=== PATIENT | male | born 1965 | race Caucasian/White ===

== ENCOUNTER 2024-07-19 17:35 | Inpatient (IN) | payer MEDICARE, OTHER ==
[2024-07-19] MEDS: SODIUM CHLORIDE 0.9% 1,000 ML IV ONE ×2 (18:40→23:05)
[2024-07-19 19:04] LABS: Basophils % (A) 0 %; Eosinophils % (A) 1 %; HCT 36.7 % (39.0-53.0); HGB 11.9 gm/dL (13.0-17.5); Hypochromasia Slight; Lymphocytes # (A) 0.4 k/uL (1.0-4.8); Lymphocytes % (A) 15 %; MCH 31.4 pg (25.0-35.0); MCHC 32.5 g/dL (31.0-37.0); MCV 96.8 fL (80.0-100.0); Mean Platelet Volume 8.1; Monocytes # (A) 0.2 k/uL (0-1.0); Monocytes % (A) 8 %; Neutrophils # (A) 2.2 k/uL (1.3-7.7); Neutrophils % (A) 74 %; Platelet Count 122 k/uL (150-450); RBC 3.79 m/uL (4.30-5.90); RDW 14.9 % (11.5-15.5)
[2024-07-19 19:08] LABS: INR 1.4 (<1.2); Partial Thromboplastin Time 28.5 sec (22.0-30.0); Prothrombin Time 14.7 sec (10.0-12.5)
[2024-07-19 19:19] LABS: Lactic Acid, Venous 2.5 mmol/L (0.7-2.0)
[2024-07-19 19:22] LABS: ALT 11 U/L (4-49); AST 35 U/L (17-59); African American GFR (CKD) >90 (>60 ml/min/1.73 sqM); Albumin 3.5 g/dL (3.5-5.0); Alcohol <10 mg/dL; Alkaline Phosphatase 120 U/L (38-126); Anion Gap 4 mmol/L; Blood Urea Nitrogen 8 mg/dL (9-20); Calcium 8.8 mg/dL (8.4-10.2); Carbon Dioxide 30 mmol/L (22-30); Chloride 99 mmol/L (98-107); Glucose 109 mg/dL (74-99); Non-African American GFR(CKD) >90 (>60 ml/min/1.73 sqM); Potassium 2.8 mmol/L (3.5-5.1); Sodium 133 mmol/L (137-145); Total Bilirubin 2.5 mg/dL (0.2-1.3)
--- NOTE | 2024-07-19 19:25 | XR ---
EXAMINATION TYPE: XR pelvis AP view DATE OF EXAM: 07/19/2024 7:08 PM CLINICAL INDICATION: Male, 59 years old with history of fall; [facility] COMPARISON: None TECHNIQUE: XR pelvis AP view, examined in a single projection. FINDINGS: There is no evidence of fracture or dislocation. There is no soft tissue abnormality. No a bnormal calcifications are present. The spine appears intact. The hips appear intact. No significant degeneration. Atherosclerosis of the arterial vasculature. Surgical changes with clips in the right i nguinal region. IMPRESSION: No acute osseous pathology. [facility], , 07/19/2024 7:23 PM
[2024-07-19] MEDS: LORazepam 2 MG/ML INJ IV STA ×3 (19:26→20:50)
--- NOTE | 2024-07-19 19:33 | CT ---
EXAMINATION TYPE: CT brain cspine wo con CT DLP: 1263.7 mGycm, Automated exposure control for dose reduction was used. DATE OF EXAM: 07/19/2024 7:13 PM COMPARISON: None. CLINICAL INDICATION: Male, 59 years old with history of Altered mental status; fall, ams TECHNIQUE: Brain: Multiple axial CT images of the brain were obtained without IV contrast. Cspine: Axial CT images from the skull base to the inferior aspect of T2 we obtained without intraven ous contrast. Coronal and sagittal reformatted images were also reviewed. . FINDINGS: Brain: Extra-axial spaces: No abnormal extra-axial fluid collections. Ventricular system: Dilatation in proportion to cerebral atrophy. Cerebral parenchyma: Cerebral atrophy. No acute intraparenchymal hemorrhage or mass effect. The salazar -white junction is well differentiated. Scattered hypoattenuating areas are seen within the white mat ter. Cerebellum: Unremarkable. Mass effect: No evidence of midline shift. Intracranial vasculature: Atherosclerotic calcifications of the intracranial vessels. Soft tissues: Normal. Calvarium/osseous structures: No depressed skull fracture. Paranasal sinuses and mastoid air cells: Clear. Visualized orbits: Orbital contents are intact. Cervical spine: Fracture: None. Osseous structures: Multilevel degenerative disc disease changes with endplate spurring and disc oste ophyte complex's. Vertebral alignment: Within normal limits. Spinal canal/Neural Foramina: No evidence of significant spinal canal narrowing. No evidence for sign ificant neural foraminal stenosis. Neck soft tissues: Prevertebral soft tissues are within normal limits. Other: The airway is patent. Paraseptal and centrilobular emphysema changes. Pulmonary vascular conge stion. Atherosclerosis of the carotid bifurcations. Cardiac conduction leads partially visualized. IMPRESSION: 1. No acute intracranial process. 2. Nonspecific white matter changes, likely secondary to chronic small vessel ischemic disease. 3. No evidence of cervical spine fracture. 4. Mild multilevel degenerative disc disease. 5. Moderate emphysema. 6. Pulmonary vascular congestion correlate with serum BNP. [facility], Workstation: [id number], 07/19/2024 7:31 PM
[2024-07-19] MEDS ORDERED: LORazepam 2 MG/ML INJ IV PRN ×2 (19:34)
--- NOTE | 2024-07-19 19:35 | XR ---
EXAMINATION TYPE: XR chest 1V portable DATE OF EXAM: 07/19/2024 7:08 PM CLINICAL INDICATION: Male, 59 years old with history of fall; [facility] COMPARISON: None TECHNIQUE: XR chest 1V portable Frontal view of the chest. FINDINGS: Lungs/Pleura: There is no evidence of pleural effusion, focal consolidation, or pneumothorax. Pulmonary vascularity: Pulmonary vascular congestion. Heart/mediastinum: Cardiomediastinal silhouette is enlarged. Atherosclerotic calcifications are seen in the aorta. Two lead cardiac conduction device overlying the left hemithorax with lead tips projec ting over the right ventricle and right atrium. Musculoskeletal: No acute osseous pathology. Midline sternotomy wires are noted. Other findings: Right shoulder posttraumatic changes with radiopaque foreign bodies. IMPRESSION: Cardiomegaly with mild pulmonary vascular congestion. [facility], Workstation: [employer][id number], 07/19/2024 7:32 PM
[2024-07-19] MEDS ORDERED: Potassium Replacement Protocol 1 EACH MISC MISCELLANE PRN (19:36)
[2024-07-19] MEDS: levETIRAcetam IV 500 MG/5 ML VIAL IVP STA (20:05)
[2024-07-19] MEDS: HALOPERIDOL LACTATE 5 MG/ML 1 ML VIAL IVP STA (20:05)
[2024-07-19] MEDS: THIAMINE 100 MG/ML 2 ML VIAL IM STA (20:12)
[2024-07-19] MEDS: SODIUM CHLORIDE 0.9% 1,000 ML IV STA (20:15)
--- NOTE | 2024-07-19 20:26 | ED ---
General Adult HPI - General Chief complaint: Fall Stated complaint: Fall-AMS Time Seen by Provider: 07/19/24 17:38 Source: patient, EMS, RN notes reviewed, old records reviewed Mode of arrival: EMS Limitations: no limitations - History of Present Illness Initial comments: Patient is a 59-year-old male who presents emergency department complaining of a fall at home. Patient does not remember the fall. He has a history of abuse. Is a daily drinker. Has been attempting to decrease the amount of alcohol he drinks on a daily basis. He does have a history of atrial fibrillation with an AICD. States he has not been taking a blood thinner for multiple months. Cannot recall all of his medications and questionable compliance regarding the se. Denies any headache or pain. Has a chronic abdominal hernia. Denies any shortness of breath. Does endorse some mild tremors. Presents for further evaluation at this time. Patient was a little confused after falling at home apparently as he cannot recall the fall but it does not sound like he was postictal. The fall occurred shortly prior to arrival and by the time he mated to the ER he was coherent, alert and oriented x 4, with no complaints. - Related Data Home Medications Medication Instructions Recorded Confirmed Bumetanide [BUMEX] 2 mg PO DIRECTED 07/19/24 07/19/24 Empagliflozin [Jardiance] 10 mg PO DIRECTED 07/19/24 07/19/24 HYDROcodone/APAP 10-325MG [[place] 1 tab PO Q6H PRN 07/19/24 07/19/24 10-325] LORazepam 2 mg PO TID PRN 07/19/24 07/19/24 Sacubitril/Valsartan [Entresto 24 1 tab PO DIRECTED 07/19/24 07/19/24 mg-26 mg Tablet] Allergies Allergy/AdvReac Type Severity Reaction Status Date / Time No Known Allergies Allergy Verified 07/19/24 20:02 Review of Systems ROS Statement: Those systems with pertinent positive or pertinent negative responses have been documented in the HPI. Review of Systems: CONST: Denies fever EYES: Denies blurry vision ENT: Denies nasal congestion C/V: Denies Chest pain RESP: Denies shortness of breath GI: Denies abdominal pain : Denies dysuria SKIN: Denies rash. MSK: Denies joint pain. NEURO: Denies headache ROS Other: All systems not noted in ROS Statement are negative. Past Medical History Past Medical History: Atrial Fibrillation, Chest Pain / Angina, Heart Failure, COPD, Diabetes Mellitus, Hypertension, Liver Disease, Myocardial Infarction (IL), Respiratory Disorder, Syncope Additional Past Medical History / Comment(s): 07/19/2024- no info in system- all placed in history per patients recollection- Home oxygen use@2-3L PRN COPD, IL- patient reports having 3-4 IL's 07/19/24, + CABG scar, + AICD/PCCM "I have a machine inside that sends all the info to my heart doctor" , Abdominal Hernia surgery x2, paracentesis as needed- last times was at [facility] about 3-4 months ago per patient History of Any Multi-Drug Resistant Organisms: None Reported Past Surgical History: AICD, Cholecystectomy, Coronary Bypass/CABG, Heart Catheterization With Stent, Hernia Repair, Pacemaker Additional Past Surgical History / Comment(s): CABG, AICD/Pacemaker placed about 10 years ago per patient 07/19/24, Hernia repair abdominal x2 Past Psychological History: Anxiety Smoking Status: Current every day smoker Past Alcohol Use History: Abuse, Daily, Heavy Past Drug Use History: Marijuana General Exam - General Exam Comments Initial Comments: General: Appears in no acute distress. Mild alcohol withdrawal symptoms con sidering he is tremulous with mild tongue fasciculations. Last drink was yesterday. HEAD: Normal with no signs of head trauma. Negative Dempsey sign. Negative raccoon eyes. EYES: PERRLA, EOMI, conjunctiva normal, no discharge. Pupils are 3 mm and equal bilaterally. ENT: Hearing grossly intact, normal oropharynx. RESPIRATORY: Clear breath sounds bilaterally. No wheezes, rales, or rhonchi. C/V: Irregular rate and rhythm. S1 and S2 auscultated, no edema, peripheral pulses 2+ and intact throughout ABD: Abd is soft, nontender, nondistended EXT: Normal range of motion, no obvious deformity SKIN: No rashes or lesions observed on exposed skin. NEURO: Alert and oriented x 4. Cranial nerves II-XII intact. No focal sensory or strength deficits. GCS of 15. NIH is 0. Limitations: no limitations Course Vital Signs 07/19/24 17:55 Temperature 99.3 F Pulse Rate 90 Respiratory 20 Rate Blood Pressure 128/65 O2 Sat by Pulse 94 L Oximetry Medical Decision Making - Medical Decision Making Was pt. sent in by a medical professional or institution (AURY Barrera, FILM RECORDIST, urgent care, hospital, or [facility]...) When possible be specific @ -No Did you speak to anyone other than the patient for history (EMS, parent, family, police, friend...)? What history was obtained from this source @ -No Did you review nursing and triage notes (agree or disagree)? Why? @ -I reviewed and agree with nursing and triage notes Were old charts reviewed (outside hosp., previous admission, EMS record, old EKG, old radiological studies, urgent care reports/EKG's, [facility] records)? Report findings @ -No old charts were reviewed Differential Diagnosis (chest pain, altered mental status, abdominal pain women, abdominal pain men, vaginal bleeding, weakness, fever, dyspnea, syncope, headache, dizziness, GI bleed, back pain, seizure, CVA, palpatations, mental health, musculoskeletal)? @ -Differential Altered Mental Status: Hypoglycemia, DKA, hypercapnia, ETOH, overdose, CO poisoning, trauma, myxedema coma, HTN encephalopathy, infection, encephalitis, psychosis, intercranial hemorrhage, hepatic encephalopathy, meningitis, CVA, this is not meant to be an all-inclusive list EKG interpreted by me (3pts min.). @ -As above X-rays interpreted by me (1pt min.). @ -Chest xray Shows cardiomegaly with mild pulmonary vascular congestion. P daniel x-ray shows no obvious acute process or injury. CT interpreted by me (1pt min.). @ -CT brain, C-spine shows no obvious acute intracranial process. U/S interpreted by me (1pt. min.). @ -None done What testing was considered but not performed or refused? (CT, X-rays, U/S, labs)? Why? @ -None What meds were considered but not given or refused? Why? @ -None Did you discuss the management of the patient with other professionals (professionals i.e. AURY Barrera, FILM RECORDIST, lab, RT, psych nurse, child protective services social worker, public relations intern, teacher, driver's license reviewing officer, case management associate)? Give summary @ -Discussed with Dr. Pope who accepted the admission. He spoke with Dr. Kirkpatrick while I admitted the patient to the ICU on presidex drip. Patient accepted to ICU by Dr. Kirkpatrick. Was smoking cessation discussed for >3mins.? @ -No Was critical care preformed (if so, how long)? @ -Yes, 35 minutes. Were there social determinants of health that impacted care today? How? (Homelessness, low income, unemployed, alcoholism, drug addiction, transportation, low edu. Level, literacy, decrease access to med. care, detention, rehab)? @ -No Was there de-escalation of care discussed even if they declined (Discuss DNR or withdrawal of care, Hospice)? DNR status @ -No What co-morbidities impacted this encounter? (DM, HTN, Smoking, COPD, CAD, Cancer, CVA, ARF, Chemo, Hep., AIDS, mental health diagnosis, sleep apnea, morbid obesity)? @ -Alcohol abuse Was patient admitted / discharged? Hospital course, mention meds given and route, prescriptions, significant lab abnormalities, going to OR and other pertinent info. @ -Based on the patient's presentation and physical exam, I am concerned for alcohol withdrawals. Patient also fell at home. Does not appear postictal at this time so low suspicion for seizure at home. However we will obtain altered mental status workup as well as CT abdomen pelvis. Patient was in agreement this plan. Vitals within acceptable limits. EKG shows atrial fibrillation. Laboratory studies remarkable for hypokalemia with potassium of 2.8. Lactic acid is 2.5. Ammonia is elevated at 51. Alcohol level is undetectable. Patient has a leukopenia at 3.0, a mild anemia with hemoglobin 11.9, as well as a mild thrombocytopenia of 122. CT brain C-spine shows no obvious acute intracranial process or injury. Chest and pelvis x-ray showed no obvious injuries. On reevaluation, patient is resting comfortably. He did begin to have a breakthrough seizure. At this time patient was given 2 mg IV Ativan as well as given a dose of Keppra and maintenance fluids will be continued. Patient is postictal and still agitated. Additional Ativan will be administered and we will continue to monitor the situation. I did speak with Dr. Pope the admitting provider who did accept the patient. Decision made at this time to admit the patient to the ICU. Dr. Pope spoke with Dr. Kirkpatrick the head boys tennis coach who accepted the admission. Patient placed on Precedex drip for his agitation and alcohol withdrawals. No additional seizure activity in the emergency department at time of admission. Patient given potassium supplementation. His ammonia is also elevated and was given a dose of rectal lactulose. [facility] Protocol who ordered. Seizure precautions ordered. Undiagnosed new problem with uncertain prognosis? @ -No Drug Therapy requiring intensive monitoring for toxicity (Heparin, Nitro, Insulin, Cardizem)? @ -No Were any procedures done? @ -No Diagnosis/symptom? @ -Fall, alcohol withdrawals, seizure, hypokalemia Acute, or Chronic, or Acute on Chronic? @ -Acute Uncomplicated (without systemic symptoms) or Complicated (systemic symptoms)? @ -Complicated Side effects of treatment? @ -No Exacerbation, Progression, or Severe Exacerbation? @ -No Poses a threat to life or bodily function? How? (Chest pain, USA, IL, pneumonia, PE, COPD, DKA, ARF, appy, cholecystitis, CVA, Diverticulitis, Homicidal, Suicidal, threat to staff... and all critical care pts) @ -Yes - Lab Data Result diagrams: 07/19/24 18:45 07/19/24 18:45 Lab Results 07/19/24 07/19/24 07/19/24 Range/Units 17:38 18:45 18:45 WBC 3.0 L (3.8-10.6) k/uL RBC 3.79 L (4.30-5.90) m/uL Hgb 11.9 L (13.0-17.5) gm/dL Hct 36.7 L (39.0-53.0) % MCV 96.8 (80.0-100.0) fL MCH 31.4 (25.0-35.0) pg MCHC 32.5 (31.0-37.0) g/dL RDW 14.9 (11.5-15.5) % Plt Count 122 L (150-450) k/uL MPV 8.1 Neutrophils % 74 % Lymphocytes % 15 % Monocytes % 8 % Eosinophils % 1 % Basophils % 0 % Neutrophils # 2.2 (1.3-7.7) k/uL Lymphocytes # 0.4 L (1.0-4.8) k/uL Monocytes # 0.2 (0-1.0) k/uL Eosinophils # 0.0 (0-0.7) k/uL Basophils # 0.0 (0-0.2) k/uL Hypochromasia Slight PT 14.7 H (10.0-12.5) sec INR 1.4 H (<1.2) APTT 28.5 (22.0-30.0) sec Sodium (137-145) mmol/L Potassium (3.5-5.1) mmol/L Chloride (98-107) mmol/L Carbon Dioxide (22-30) mmol/L Anion Gap mmol/L BUN (9-20) mg/dL Creatinine (0.66-1.25) mg/dL Est GFR (CKD-EPI)AfAm (>60 ml/min/1.73 sqM) Est GFR (CKD-EPI)NonAf (>60 ml/min/1.73 sqM) Glucose (74-99) mg/dL Plasma Lactic Acid Tay (0.7-2.0) mmol/L Calcium (8.4-10.2) mg/dL Total Bilirubin (0.2-1.3) mg/dL AST (17-59) U/L ALT (4-49) U/L Alkaline Phosphatase (38-126) U/L Ammonia (<30) umol/L Total Protein (6.3-8.2) g/dL Albumin (3.5-5.0) g/dL Serum Alcohol mg/dL Influenza Type A (PCR) Not Detected (Not Detectd) Influenza Type B (PCR) Not Detected (Not Detectd) RSV (PCR) Not Detected (Not Detectd) SARS-CoV-2 (PCR) Not Detected (Not Detectd) 07/19/24 07/19/24 Range/Units 18:45 18:45 WBC (3.8-10.6) k/uL RBC (4.30-5.90) m/uL Hgb (13.0-17.5) gm/dL Hct (39.0-53.0) % MCV (80.0-100.0) fL MCH (25.0-35.0) pg MCHC (31.0-37.0) g/dL RDW (11.5-15.5) % Plt Count (150-450) k/uL MPV Neutrophils % % Lymphocytes % % Monocytes % % Eosinophils % % Basophils % % Neutrophils # (1.3-7.7) k/uL Lymphocytes # (1.0-4.8) k/uL Monocytes # (0-1.0) k/uL Eosinophils # (0-0.7) k/uL Basophils # (0-0.2) k/uL Hypochromasia PT (10.0-12.5) sec INR (<1.2) APTT (22.0-30.0) sec Sodium 133 L (137-145) mmol/L Potassium 2.8 L (3.5-5.1) mmol/L Chloride 99 (98-107) mmol/L Carbon Dioxide 30 (22-30) mmol/L Anion Gap 4 mmol/L BUN 8 L (9-20) mg/dL Creatinine 0.53 L (0.66-1.25) mg/dL Est GFR (CKD-EPI)AfAm >90 (>60 ml/min/1.73 sqM) Est GFR (CKD-EPI)NonAf >90 (>60 ml/min/1.73 sqM) Glucose 109 H (74-99) mg/dL Plasma Lactic Acid Tay 2.5 H* (0.7-2.0) mmol/L Calcium 8.8 (8.4-10.2) mg/dL Total Bilirubin 2.5 H (0.2-1.3) mg/dL AST 35 (17-59) U/L ALT 11 (4-49) U/L Alkaline Phosphatase 120 (38-126) U/L Ammonia 51 H (<30) umol/L Total Protein 7.0 (6.3-8.2) g/dL Albumin 3.5 (3.5-5.0) g/dL Serum Alcohol <10 mg/dL Influenza Type A (PCR) (Not Detectd) Influenza Type B (PCR) (Not Detectd) RSV (PCR) (Not Detectd) SARS-CoV-2 (PCR) (Not Detectd) - EKG Data -: EKG Interpreted by Me EKG Comments: 12-lead Electrocardiogram Interpretation Note EKG was reviewed and interpreted by myself. 12-lead ECG performed at 1755 is interpreted by me as revealing atrial fibrillation at a rate of 95 beats per minute. [place] is normal. QRS duration is 120 ms, QTc is 443 ms. Patient has an isolated segment depression in lead V5.. There were no obvious acute ST or T wave abnormalities to suggest myocardial ischemia or injury. R wave progression across the precordium was delayed. By my interpretation this EKG is non- diagnostic for acute ischemia. Critical Care Time Critical Care Time: Yes Total Critical Care Time: 35 Disposition Clinical Impression: Fall, Alcohol withdrawal, Seizure, Hypokalemia, Hyperammonemia Disposition: ADMITTED IP TO THIS HOSP Condition: Serious Referrals: None,Stated [Primary Care Provider] - 1-2 days Time of Disposition: 20:36
[2024-07-19] MEDS: LORazepam 2 MG/ML INJ IV PRN (20:28)
[2024-07-19] MEDS ORDERED: NALOXONE 0.4 MG/ML 1 ML VIAL IV PRN (20:30)
--- NOTE | 2024-07-19 20:45 | ED ---
Medical Decision Making - Lab Data Result diagrams: 07/19/24 18:45 07/19/24 18:45 Lab Results 07/19/24 07/19/24 07/19/24 Range/Units 17:38 18:45 18:45 WBC 3.0 L (3.8-10.6) k/uL RBC 3.79 L (4.30-5.90) m/uL Hgb 11.9 L (13.0-17.5) gm/dL Hct 36.7 L (39.0-53.0) % MCV 96.8 (80.0-100.0) fL MCH 31.4 (25.0-35.0) pg MCHC 32.5 (31.0-37.0) g/dL RDW 14.9 (11.5-15.5) % Plt Count 122 L (150-450) k/uL MPV 8.1 Neutrophils % 74 % Lymphocytes % 15 % Monocytes % 8 % Eosinophils % 1 % Basophils % 0 % Neutrophils # 2.2 (1.3-7.7) k/uL Lymphocytes # 0.4 L (1.0-4.8) k/uL Monocytes # 0.2 (0-1.0) k/uL Eosinophils # 0.0 (0-0.7) k/uL Basophils # 0.0 (0-0.2) k/uL Hypochromasia Slight PT 14.7 H (10.0-12.5) sec INR 1.4 H (<1.2) APTT 28.5 (22.0-30.0) sec Sodium (137-145) mmol/L Potassium (3.5-5.1) mmol/L Chloride (98-107) mmol/L Carbon Dioxide (22-30) mmol/L Anion Gap mmol/L BUN (9-20) mg/dL Creatinine (0.66-1.25) mg/dL Est GFR (CKD-EPI)AfAm (>60 ml/min/1.73 sqM) Est GFR (CKD-EPI)NonAf (>60 ml/min/1.73 sqM) Glucose (74-99) mg/dL Plasma Lactic Acid Tay (0.7-2.0) mmol/L Calcium (8.4-10.2) mg/dL Total Bilirubin (0.2-1.3) mg/dL AST (17-59) U/L ALT (4-49) U/L Alkaline Phosphatase (38-126) U/L Ammonia (<30) umol/L Total Protein (6.3-8.2) g/dL Albumin (3.5-5.0) g/dL Serum Alcohol mg/dL Influenza Type A (PCR) Not Detected (Not Detectd) Influenza Type B (PCR) Not Detected (Not Detectd) RSV (PCR) Not Detected (Not Detectd) SARS-CoV-2 (PCR) Not Detected (Not Detectd) 07/19/24 07/19/24 Range/Units 18:45 18:45 WBC (3.8-10.6) k/uL RBC (4.30-5.90) m/uL Hgb (13.0-17.5) gm/dL Hct (39.0-53.0) % MCV (80.0-100.0) fL MCH (25.0-35.0) pg MCHC (31.0-37.0) g/dL RDW (11.5-15.5) % Plt Count (150-450) k/uL MPV Neutrophils % % Lymphocytes % % Monocytes % % Eosinophils % % Basophils % % Neutrophils # (1.3-7.7) k/uL Lymphocytes # (1.0-4.8) k/uL Monocytes # (0-1.0) k/uL Eosinophils # (0-0.7) k/uL Basophils # (0-0.2) k/uL Hypochromasia PT (10.0-12.5) sec INR (<1.2) APTT (22.0-30.0) sec Sodium 133 L (137-145) mmol/L Potassium 2.8 L (3.5-5.1) mmol/L Chloride 99 (98-107) mmol/L Carbon Dioxide 30 (22-30) mmol/L Anion Gap 4 mmol/L BUN 8 L (9-20) mg/dL Creatinine 0.53 L (0.66-1.25) mg/dL Est GFR (CKD-EPI)AfAm >90 (>60 ml/min/1.73 sqM) Est GFR (CKD-EPI)NonAf >90 (>60 ml/min/1.73 sqM) Glucose 109 H (74-99) mg/dL Plasma Lactic Acid Tay 2.5 H* (0.7-2.0) mmol/L Calcium 8.8 (8.4-10.2) mg/dL Total Bilirubin 2.5 H (0.2-1.3) mg/dL AST 35 (17-59) U/L ALT 11 (4-49) U/L Alkaline Phosphatase 120 (38-126) U/L Ammonia 51 H (<30) umol/L Total Protein 7.0 (6.3-8.2) g/dL Albumin 3.5 (3.5-5.0) g/dL Serum Alcohol <10 mg/dL Influenza Type A (PCR) (Not Detectd) Influenza Type B (PCR) (Not Detectd) RSV (PCR) (Not Detectd) SARS-CoV-2 (PCR) (Not Detectd) Disposition Clinical Impression: Fall, Alcohol withdrawal, Seizure, Hypokalemia, Hyperammonemia Disposition: ADMITTED IP TO THIS [facility] Condition: Serious Procedures - Restraint - Face to Face Restraint Occurrence 1 Patient's Immediate Situation: Endangers self safety Patient's Reaction to the Intervention: Appropriate, Calm Patient's Medical & Behavioral Condition: Agitated Face to Face Eval of Restraint Date: 07/19/24 Face to Face Eval of Restraint Time: 20:20
[2024-07-19] MEDS: DEXMEDETOMIDINE/0.9% NACL(PMX) 400 MCG in EMPTY BAG 1 BAG IV SCH (21:01)
[2024-07-19] MEDS: POTASSIUM CHLORIDE 10 MEQ in WATER FOR INJECTION 1 100ML.BAG IVPB SCH (21:03)
[2024-07-19] MEDS: MAGNESIUM SULFATE-D5W PMX 1 GM in DEXTROSE/WATER 1 100ML.BAG IVPB ONE (21:45)
[2024-07-19] MEDS ORDERED: DILTIAZEM 125 MG in SODIUM CHLORIDE 0.9% 100 ML IV SCH (22:15)
[2024-07-19 22:50] LABS: ABG Base Excess 1.3 mmol/L; ABG HCO3 27 mmol/L (21-25); ABG Oxygen Saturation 100.5 % (94-97); ABG PCO2 44 mmHg (35-45); ABG PH 7.39 (7.35-7.45); ABG PO2 252 mmHg (83-108); ABG TCO2 28 mmol/L (19-24); Allen Test Performed? Yes
--- NOTE | 2024-07-19 22:56 | P.HPIM ---
History of Present Illness H&P Date: 07/19/24 Chief Complaint: Fall Patient is a 59-year-old male who has atrial fibrillation with an AICD presented to the ED after a fall at home. upon presentation patient was AXO X 4 , however, by the time I evaluated the patient he was already intubated and history obtained by discussing hte case with ED staff and reviewing medical records. The patient did not remember the fall. While in the ED the patient was suspected to have alcohol withdrawal seizures and was admitted in the ICU. In the ICU, due to respiratory instability, the patient is sedated, mechanically intubated and ventilated at a rate of 20, 60% FiO2 and PEEP of 5. ED documentation reviewed. Respiratory panel negative, serum alcohol less than 10. The patient received levetiracetam, lorazepam while in the ED. Review of systems: Pertinent positives and negatives as discussed in HPI, a complete review of systems was performed and all other systems are negative. Physical examination: Vitals: P 108 bpm, RR 20, BP 164/135, O2 saturation 93% on 60% FiO2 General: sedated and intubated, appears at stated age, normal bmi Derm: venous stasis ulcers b/l LE Head: atraumatic, normocephalic, symmetric ENT: Nose and ears atraumatic Cardiovascular: S1S2 reg, no murmur, b/l pitting edema of the legs Lungs: CTA bilateral, no rhonchi, no rales, no accessory muscle use Abdominal: hernia in umbilical region, soft Assessment/Plan: Patient is a 59-year-old male who has atrial fibrillation and AICD presented to the ED after a fall at home. Case discussed with the provider and admission accepted for alcohol withdrawal seizures. #. Acute hypoxic respiratory failure Patient is intubated and sedated Patient on dexmedetomidine, midazolam #. Alcohol withdrawal seizures S/p thiamine 100 mg IM once in the ED received multiple doses of ativan without improvement or control of his symptoms now on midazolam drip seizure precautions #. Hypokalemia Patient on potassium replacement protocol #. Atrial fibrillation Continue diltiazem 125 mg IV per protocol #. Liver disease, 2/2 to alcohol abuse hyperammonia S/p lactulose 200 g rectal once in the ED Pancytopenia WBC 3, hemoglobin 11.9, platelet 122, PT 14.7, INR 1.4, elevated total bili 2.5, elevated ammonia 51 F: 0.9 normal saline 100 mL/h E: Replete as required N: A: Bedrest DVT prophylaxis: Heparin infusion The patient is admitted with an anticipated more than 2 midnight stay for evaluation of fall CODE STATUS: Full code Discussed with: Patient Anticipated discharge place: Home Past Medical History Past Medical History: Atrial Fibrillation, Chest Pain / Angina, Heart Failure, COPD, Diabetes Mellitus, Hypertension, Liver Disease, Myocardial Infarction ([place]), Respiratory Disorder, Syncope Additional Past Medical History / Comment(s): 07/19/2024- no info in system- all placed in history per patients recollection- Home oxygen use@2-3L PRN COPD, [place]- patient reports having 3-4 OH's 07/19/24, + CABG scar, + AICD/PCCM "I have a machine inside that sends all the info to my heart doctor" , Abdominal Hernia surgery x2, paracentesis as needed- last times was at [facility] about 3-4 months ago per patient History of Any Multi-Drug Resistant Organisms: None Reported Past Surgical History: AICD, Cholecystectomy, Coronary Bypass/CABG, Heart Catheterization With Stent, Hernia Repair, Pacemaker Additional Past Surgical History / Comment(s): CABG, AICD/Pacemaker placed about 10 years ago per patient 07/19/24, Hernia repair abdominal x2 Past Psychological History: Anxiety Smoking Status: Current every day smoker Past Alcohol Use History: Abuse, Daily, Heavy Past Drug Use History: Marijuana Medications and Allergies Home Medications Medication Instructions Recorded Confirmed Type Bumetanide [BUMEX] 2 mg PO DIRECTED 07/19/24 07/19/24 History Empagliflozin [Jardiance] 10 mg PO DIRECTED 07/19/24 07/19/24 History HYDROcodone/APAP 10-325MG [[place] 1 tab PO Q6H PRN 07/19/24 07/19/24 History 10-325] RX: LORazepam 2 mg PO TID PRN 07/19/24 07/19/24 History Sacubitril/Valsartan [Entresto 24 1 tab PO DIRECTED 07/19/24 07/19/24 History mg-26 mg Tablet] Allergies Allergy/AdvReac Type Severity Reaction Status Date / Time No Known Allergies Allergy Verified 07/19/24 20:02 Physical Exam Vitals: Vital Signs Temp Pulse Resp BP Pulse Ox FiO2 07/19/24 22:39 100 07/19/24 22:12 100 07/19/24 20:20 132 H 22 188/141 94 L 07/19/24 20:18 128 H 26 H 188/147 95 07/19/24 20:10 126 H 22 195/121 94 L 07/19/24 19:30 130 H 25 H 154/92 91 L 07/19/24 18:29 98 18 149/79 96 07/19/24 17:55 99.3 F 90 20 128/65 94 L Intake and Output 07/19/24 07/19/24 07/19/24 06:59 14:59 22:59 Intake Total 6.35 Balance 6.35 Intake: Intake, IV Titration 6.35 Amount Dexmedetomidine/0.9% NaCl 6.35 (Pmx) 400 mcg In Empty Bag 1 bag @ 0.2 MCG/KG/HR 3.969 mls/hr IV .Q24H [facility] Rx#:[id number] Other: Weight 79.379 kg Results CBC & Chem 7: 07/19/24 18:45 07/19/24 18:45 Labs: Abnormal Lab Results - Last 24 Hours (Table) 07/19/24 07/19/24 07/19/24 Range/Units 18:45 18:45 18:45 WBC 3.0 L (3.8-10.6) k/uL RBC 3.79 L (4.30-5.90) m/uL Hgb 11.9 L (13.0-17.5) gm/dL Hct 36.7 L (39.0-53.0) % Plt Count 122 L (150-450) k/uL Lymphocytes # 0.4 L (1.0-4.8) k/uL PT 14.7 H (10.0-12.5) sec INR 1.4 H (<1.2) Sodium 133 L (137-145) mmol/L Potassium 2.8 L (3.5-5.1) mmol/L BUN 8 L (9-20) mg/dL Creatinine 0.53 L (0.66-1.25) mg/dL Glucose 109 H (74-99) mg/dL Plasma Lactic Acid Tay (0.7-2.0) mmol/L Total Bilirubin 2.5 H (0.2-1.3) mg/dL Ammonia (<30) umol/L 07/19/24 Range/Units 18:45 WBC (3.8-10.6) k/uL RBC (4.30-5.90) m/uL Hgb (13.0-17.5) gm/dL Hct (39.0-53.0) % Plt Count (150-450) k/uL Lymphocytes # (1.0-4.8) k/uL PT (10.0-12.5) sec INR (<1.2) Sodium (137-145) mmol/L Potassium (3.5-5.1) mmol/L BUN (9-20) mg/dL Creatinine (0.66-1.25) mg/dL Glucose (74-99) mg/dL Plasma Lactic Acid Tay 2.5 H* (0.7-2.0) mmol/L Total Bilirubin (0.2-1.3) mg/dL Ammonia 51 H (<30) umol/L Assessment and Plan Assessment: I have seen and evaluated the patient today. I Discussed the case with the resident and agree with the resident's findings I edited the assessment and plan as necessary as documented in the resident's note.
[2024-07-19] MEDS: MIDAZOLAM HCL 50 MG in SODIUM CHLORIDE 0.9% 40 ML IV SCH (22:58)
[2024-07-19] MEDS: DILTIAZEM DRIP BOLUS FROM BAG 1 MG SOLN IV ONE (23:04)
[2024-07-19] MEDS: LACTULOSE 200 GM/300 ML (FROM 1/2 GAL JUG) RECTAL ONE (23:20)
--- NOTE | 2024-07-19 23:46 | XR ---
EXAM: XR Chest, 1 View CLINICAL HISTORY: ITS.REASON XR Reason: Tube placement TECHNIQUE: Frontal view of the chest. COMPARISON: July 19, 2024. 7:01 PM. FINDINGS: Lungs: See below. Pleural space: Trace bilateral pleural effusions. Mild pulmonary vascular congestion. Correlate for congestive heart failure. No pneumothorax. Heart: Cardiomegaly. Mediastinum: Unremarkable. Normal mediastinal contour. Bones/joints: Sternotomy wires. [place]ley project over the RIGHT shoulder. No acute fracture. Tubes, lines and devices: Endotracheal tube terminates 4 cm above the ozzie. Feeding tube terminates in the stomach. IMPRESSION: Trace bilateral pleural effusions. Mild pulmonary vascular congestion. Correlate for congestive heart failure.
[2024-07-19] MEDS: LACTULOSE 20 GM/30 ML CUP PO SCH (23:50)
[2024-07-20] MEDS: SODIUM CHLORIDE 0.9% 1,000 ML IV SCH (00:11)
[2024-07-20] MEDS: IPRATROPIUM-ALBUTEROL 3 ML NEB INHALATION SCH (00:20)
[2024-07-20] MEDS: HEPARIN SOD,PORK IN 0.45% NACL 25,000 UNIT in 0.45% NACL 1 250ML.BAG IV SCH (00:42)
[2024-07-20 00:49] LABS: Amphetamine Screen,Urine Not Detected (NotDetected); Barbiturate Screen,Urine Not Detected (NotDetected); Benzodiazepines Screen,Urine Detected (NotDetected); Cocaine Screen,Urine Not Detected (NotDetected); Methadone Screen, Urine Not Detected (NotDetected); Opiate Screen,Urine Not Detected (NotDetected); Oxycodone Screen, Urine Not Detected (NotDetected); Phencyclidine Screen,Urine Not Detected (NotDetected); Tricyclic Antidepressant,Urine Not Detected (NotDetected); Urn Cannabinoid Scrn Detected (NotDetected)
[2024-07-20 00:53] LABS: Amorphous Sediment,Urine Rare /hpf; Appearance,Urine Cloudy (Clear); Bacteria,Urine Rare /hpf; Bilirubin,Urine Negative (Negative); Blood,Urine Moderate (Negative); Budding Yeast,Urine Few /hpf; Color,Urine Yellow; Glucose,Urine (UA) 1+ (Negative); Hyaline Casts,Urine 31 /lpf (0-2); Ketones,Urine Negative (Negative); Leukocyte Esterase,Urine Negative (Negative); Mucus,Urine Occasional /hpf; Nitrite,Urine Negative (Negative); Protein,Urine 3+ (Negative); RBC,Urine 28 /hpf (0-5); Specific Gravity,Urine 1.016 (1.001-1.035); Squamous Epithelial Cell,Urine 2 /hpf (0-4); WBC,Urine 32 /hpf (0-5)
[2024-07-20 03:31] LABS: Basophils % (A) 0 %; Eosinophils % (A) 0 %; HCT 35.8 % (39.0-53.0); HGB 11.7 gm/dL (13.0-17.5); Hypochromasia Slight; Lymphocytes # (A) 0.4 k/uL (1.0-4.8); Lymphocytes % (A) 9 %; MCH 32.1 pg (25.0-35.0); MCHC 32.7 g/dL (31.0-37.0); MCV 98.2 fL (80.0-100.0); Mean Platelet Volume 8.7; Monocytes # (A) 0.2 k/uL (0-1.0); Monocytes % (A) 6 %; Neutrophils # (A) 3.5 k/uL (1.3-7.7); Neutrophils % (A) 83 %; Platelet Count 104 k/uL (150-450); RBC 3.64 m/uL (4.30-5.90); RDW 15.4 % (11.5-15.5); WBC 4.2 k/uL (3.8-10.6)
[2024-07-20 04:12] LABS: African American GFR (CKD) >90 (>60 ml/min/1.73 sqM); Anion Gap 3 mmol/L; Blood Urea Nitrogen 10 mg/dL (9-20); Calcium 8.3 mg/dL (8.4-10.2); Carbon Dioxide 24 mmol/L (22-30); Chloride 104 mmol/L (98-107); Glucose 93 mg/dL (74-99); Magnesium 1.4 mg/dL (1.6-2.3); Non-African American GFR(CKD) >90 (>60 ml/min/1.73 sqM); Potassium 3.5 mmol/L (3.5-5.1); Sodium 131 mmol/L (137-145)
[2024-07-20] MEDS: MAGNESIUM SULFATE-D5W PMX 1 GM in DEXTROSE/WATER 1 100ML.BAG IVPB SCH (05:23)
[2024-07-20] MEDS: POTASSIUM BICARBONATE/CIT AC 20 MEQ TABLET.EFF NG-TUBE SCH (05:23)
[2024-07-20 05:56] LABS: ABG Base Excess 1.8 mmol/L; ABG HCO3 27 mmol/L (21-25); ABG Oxygen Saturation 98.6 % (94-97); ABG PCO2 43 mmHg (35-45); ABG PO2 102 mmHg (83-108); ABG TCO2 28 mmol/L (19-24); Allen Test Performed? Yes
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
[2024-07-20] MEDS: FUROSEMIDE 10 MG/ML 4 ML VIAL IV STA (07:52)
[2024-07-20] MEDS: PANTOPRAZOLE 40 MG/10 ML VIAL IVP SCH (07:52)
[2024-07-20] MEDS: THIAMINE 100 MG TAB PO SCH (07:52)
[2024-07-20] MEDS: CHLORHEXIDINE GLUCONATE 15 ML CUP MUCOUS MEM SCH (07:52)
--- NOTE | 2024-07-20 08:26 | XR ---
EXAMINATION TYPE: XR chest 1V portable DATE OF EXAM: 07/20/2024 5:36 AM CLINICAL INDICATION: Male, 59 years old with history of Tube placement; COMPARISON: Chest radiographs from TECHNIQUE: XR chest 1V portable Frontal view of the chest. FINDINGS: Lungs/Pleura: There is no evidence of pleural effusion, focal consolidation, or pneumothorax. Pulmonary vascularity: Unremarkable. Heart/mediastinum: Cardiomediastinal silhouette is unremarkable. Three lead cardiac conduction device overlying the left hemithorax with lead tips projecting over the right ventricle, right atrium and c oronary sinus. Musculoskeletal: No acute osseous pathology. Midline sternotomy wires are noted. Other findings: None Lines/Tubes: Endotracheal tube with distal tip 3.8 cm above the ozzie. Nasogastric tube with its distal tip and side-port projecting under the diaphragm. IMPRESSION: 1. Support tubes in appropriate position. 2. New airspace opacities right lung base correlate for developing pneumonia.[facility], , 07/20/2024 8:23 AM
--- NOTE | 2024-07-20 11:16 | CA ---
Transthoracic Echo Report Name: Jaron Price Age: 59 Gender: M : 1965 Exam Date: 07/20/2024 08:17 Exam Location: [facility] Ht (in): 69 Wt (lb): 175 Ordering Physician: Gurpreet Chavez Attending/Referring Phys: Founder And Ceo Yu Tong RDCS Procedure CPT: Indications: evaluate LV function Cardiac Hx: Technical Quality: Good Contrast 1: Definity Total Dose (mL): 2 Contrast 2: Total Dose (mL): MEASUREMENTS (Male / Female) Normal Values 2D ECHO LV Diastolic Diameter PLAX 6.2 cm 4.2 - 5.9 / 3.9 - 5.3 cm LV Systolic Diameter PLAX 5.5 cm IVS Diastolic Thickness 1.1 cm 0.6 - 1.0 / 0.6 - 0.9 cm LVPW Diastolic Thickness 0.9 cm 0.6 - 1.0 / 0.6 - 0.9 cm LV Relative Wall Thickness 0.3 LVOT Diameter 2.2 cm LV Diastolic Volume MOD BP 208.4 cm??? 67 - 155 / 56 - 104 cm??? LV Systolic Volume MOD BP 152.1 cm??? 22 - 58 / 19 - 49 cm??? LV Ejection Fraction MOD BP 27.0 % >= 55 % LV Cardiac Index MOD BP 1794.0 cm???/min???m??? LV Diastolic Volume MOD 4C 213.7 cm??? LV Systolic Volume MOD 4C 156.2 cm??? LV Ejection Fraction MOD 4C 26.9 % LV Cardiac Index MOD 4C 1834.8 cm???/min???m??? LV Diastolic Length 4C 9.9 cm LV Systolic Length 4C 9.2 cm LV Diastolic Volume MOD 2C 202.6 cm??? LV Systolic Volume MOD 2C 141.3 cm??? LV Ejection Fraction MOD 2C 30.2 % LV Cardiac Index MOD 2C 1952.9 cm???/min???m??? LV Diastolic Length 2C 9.8 cm LV Systolic Length 2C 9.6 cm LA Volume 129.8 cm??? 18 - 58 / 22 - 52 cm??? LA Volume Index 65.6 cm???/m??? 16 - 28 cm???/m??? DOPPLER AV Peak Velocity 109.2 cm/s AV Peak Gradient 4.8 mmHg AV Mean Velocity 80.9 cm/s AV Mean Gradient 2.8 mmHg AV Velocity Time Integral 21.1 cm LVOT Peak Velocity 86.7 cm/s LVOT Peak Gradient 3.0 mmHg LVOT Velocity Time Integral 14.9 cm LVOT Stroke Volume 56.0 cm??? LVOT Stroke Volume Index 28.7 ml/m??? LVOT Cardiac Index 1785.8 cm???/min???m??? AV Area Cont Eq vti 2.7 cm??? AV Area Cont Eq pk 3.0 cm??? TR Peak Velocity 340.5 cm/s TR Peak Gradient 46.4 mmHg Right Atrial Pressure 20.0 mmHg Pulmonary Artery Systolic Pressu 66.4 mmHg Right Ventricular Systolic Press 66.4 mmHg PV Peak Velocity 65.4 cm/s PV Peak Gradient 1.7 mmHg FINDINGS Left Ventricle Left ventricular ejection fraction is estimated at 25-30 %. Mildly increased left ventricular diastolic diameter. Severely increased left ventricular diastolic volume. Severely increased left ventricular systolic volume. Severely decreased left ventricular ejection fraction. Basal and mid inferior wall hypokinesis. Right Ventricle Severe right ventricular dilatation with severely reduced function. Severe pulmonary hypertension. Right Atrium Severe right atrial dilatation. Catheter/pacemaker wire in the right atrial cavity. Left Atrium Severely increased left atrial volume. Moderately increased left atrial area. Mitral Valve Mitral valve thickened. No evidence for mitral valve prolapse. No mitral stenosis. Mild mitral regurgitation. Aortic Valve Trileaflet aortic valve. Aortic valve sclerosis. No aortic stenosis. Mild aortic regurgitation. Tricuspid Valve Structurally normal tricuspid valve. No tricuspid stenosis. [id number] tricuspid regurgitation. Pulmonic Valve Structurally normal pulmonic valve. No pulmonic stenosis. Trace pulmonic regurgitation. Pericardium No pericardial effusion. Aorta Aortic annulus normal. CONCLUSIONS Severe LV systolic dysfunction Severe pulmonary hypertension Mild to moderate tricuspid regurgitation Mild mitral and aortic regurgitation Inferior wall hypokinesis secondary to prior myocardial infarction Previewed by: Dr. Carlos Cleveland MD (Electronically Signed) Final Date: 20 July 2024 11:15
--- NOTE | 2024-07-20 12:24 | P.PN ---
Subjective Progress Note Date: 07/20/24 Hospital Course: 59-year-old male with history of alcohol dependence, atrial fibrillation, CAD status post CABG, HFrEF status post AICD, presenting with fall at home. Patient also encephalopathic, unsure if there was alcohol withdrawal seizure. Patient had respiratory failure in the ED and ended up being intubated and mechanically ventilated. On arrival patient was on room air but quickly started requiring nonrebreather, pulse 130, respiratory 25, blood pressure 154/92. WBC 3, hemoglobin 11.9, platelet 122, pH 7.39, pCO2 44, pO2 252, sodium 133, potassium of 2.8, creatinine 0.53, magnesium 1.4, lactate 2.5, ammonia 51, total bili 2.5, AST 35, ALT 11, urinalysis shows negative nitrites, negative leukocyte esterase, toxicology positive for benzos, marijuana, negative for alcohol, respiratory viral panel negative. Troponin elevated to 0.04. CT head and neck did not show any acute fractures, no other acute process. He also showed moderate emphysema. Chest x-ray independently interpreted, shows interstitial opacities. EKG independently interpreted shows atrial fibrillation. Pelvic x-ray did not show any acute fractures. Currently patient sedated on Versed and propofol, m echanically ventilated, on heparin drip and Cardizem drip, also on IV antibiotics. Subjective: Patient seen and examined at bedside. No acute events overnight. Currently sedated and intubated Pertinent positives and negatives as discussed above, a complete review of systems was performed and all other systems are negative. Vitals Signs Reviewed. General: Intubated and sedated Derm: Warm, dry Head: Atraumatic, normocephalic, symmetric Eyes: Pinpoint pupils, equal and reactive, anicteric sclera Mouth: No lip lesion, mucus membranes moist Cardiovascular: S1S2 reg, no murmur Lungs: Bilateral rhonchi, intubated and mechanically ventilated, no accessory muscle use Abdominal: Soft, nondistended, no appreciable organomegaly Ext: No gross muscle atrophy, no edema, no contractures Neuro: Sedated Psych: Unable to assess Data Reviewed Today: Pertinent Labs: WBC 4.2, hemoglobin 11.7, platelet 104, pH 7.4, pCO2 43, pO2 102, sodium 131, potassium 3.5, creatinine 0.61, magnesium 1.4, lactate 1.7, troponin peaked at 0.204, ammonia 44. Imaging: Chest x-ray independently interpreted this morning, shows worsening interstitial opacities bilaterally, new right lower lobe opacity Assessment and Plan: Patient is critically ill, in medical ICU. Prognosis guarded. Active: Acute hypoxic respiratory failure Aspiration pneumonia versus pneumonitis -Pulmonology note reviewed, continue mechanical ventilation -Wean as tolerated -Continue IV Zosyn 3.375 g every 8 hours, blood cultures, sputum cultures pending Alcohol withdrawal seizures Alcohol dependence with severe alcohol withdrawal -On propofol drip, Versed drip, wean as tolerated -IV Ativan per CIWA score once patient is more awake -Thiamine 100 mg daily -Continue normal saline at 100 cc an hour, judicious use of IV fluids given h istory of HFrEF NSTEMI, likely type II Atrial fibrillation with RVR HFrEF, not in exacerbation -Continue Cardizem drip, heparin drip, monitor for bleeding -Cardiology consulted -Echocardiogram showed LVEF 25 to 30% -Holding Jardiance and Entresto Hypovolemic hyponatremia -Continue normal saline IV Hypomagnesemia -Was given IV mag in the ED -Repeat mag level tomorrow Resolved: Hypokalemia Chronic: Liver disease? DVT ppx: Heparin drip Code status: Full code Anticipated discharge place: Pending clinical course Anticipated discharge time: Pending clinical course Objective - Vital Signs Vital signs: Vital Signs Temp 97.9 F 07/20/24 12:00 Pulse 72 07/20/24 12:00 Resp 21 07/20/24 12:00 BP 94/65 07/20/24 12:00 Pulse Ox 99 07/20/24 12:00 FiO2 60 07/20/24 12:00 Intake & Output 07/19/24 07/20/24 07/20/24 18:59 06:59 18:59 Intake Total 2605.719 679.139 Output Total 330 2175 Balance 2275.719 -1495.861 Weight 79.379 kg 75.3 kg Intake: Intake, IV Titration 2605.719 679.139 Amount Dexmedetomidine/0.9% NaCl 6.35 (Pmx) 400 mcg In Empty Bag 1 bag @ 0.2 MCG/KG/HR 3.969 mls/hr IV .Q24H [facility] Rx#:[id number] Heparin Sod,Pork in 0.45% 37.465 NaCl 25,000 unit In 0.45 % NaCl 1 250ml.bag @ 12 UNITS/KG/HR 9.525 mls/hr IV .Q24H [facility] Rx#: [id number] Magnesium Sulfate-D5w Pmx 100 1 gm In Dextrose/Water 1 100ml.bag @ 100 mls/hr IVPB ONCE ONE Rx#: [id number] Magnesium Sulfate-D5w Pmx 200 1 gm In Dextrose/Water 1 100ml.bag @ 100 mls/hr IVPB Q1H [facility] Rx#: [id number] Midazolam HCl 50 mg In 21.783 38.817 Sodium Chloride 0.9% 40 ml @ 1 MG/HR 1 mls/hr IV .Q24H [facility] Rx#:[id number] Potassium Chloride 10 meq 400 In Water For Injection 1 100ml.bag @ 100 mls/hr IVPB Q1HR [facility] Rx#: [id number] Sodium Chloride 0.9% 1, 700 600 000 ml @ 100 mls/hr IV . Q10H [facility] Rx#:[id number] Sodium Chloride 0.9% 1, 130 000 ml @ 130 mls/hr IV . Q7H42M [facility] Rx#:[id number] Sodium Chloride 0.9% 1, 1000 000 ml @ 999 mls/hr IV . Q1H1M ONE Rx#:[id number] propofoL 1,000 mg In 10.121 40.322 Empty Bag 1 bag @ 15 MCG/ KG/MIN 7.144 mls/hr IV . Q14H [facility] Rx#:[id number] Output: Urine 330 2175 Other: Voiding Method Indwelling Catheter Indwelling Catheter ABP, PAP, CO, CI - Last Documented Arterial Blood Pressure 119/53 - Labs CBC & Chem 7: 07/20/24 03:11 07/20/24 03:11 Labs: Abnormal Lab Results - Last 24 Hours (Table) 07/19/24 07/19/24 07/19/24 Range/Units 18:45 18:45 18:45 WBC 3.0 L (3.8-10.6) k/uL RBC 3.79 L (4.30-5.90) m/uL Hgb 11.9 L (13.0-17.5) gm/dL Hct 36.7 L (39.0-53.0) % Plt Count 122 L (150-450) k/uL Lymphocytes # 0.4 L (1.0-4.8) k/uL PT 14.7 H (10.0-12.5) sec INR 1.4 H (<1.2) APTT (22.0-30.0) sec ABG pO2 (83-108) mmHg ABG HCO3 (21-25) mmol/L ABG Total CO2 (19-24) mmol/L ABG O2 Saturation (94-97) % Sodium 133 L (137-145) mmol/L Potassium 2.8 L (3.5-5.1) mmol/L BUN 8 L (9-20) mg/dL Creatinine 0.53 L (0.66-1.25) mg/dL Glucose 109 H (74-99) mg/dL Plasma Lactic Acid Tay (0.7-2.0) mmol/L Calcium (8.4-10.2) mg/dL Magnesium (1.6-2.3) mg/dL Total Bilirubin 2.5 H (0.2-1.3) mg/dL Ammonia (<30) umol/L Troponin I (0.000-0.034) ng/mL Urine Protein (Negative) Urine Glucose (UA) (Negative) Urine Blood (Negative) Urine RBC (0-5) /hpf Urine WBC (0-5) /hpf Urine WBC Clumps (None) /hpf Amorphous Sediment (None) /hpf Urine Bacteria (None) /hpf Hyaline Casts (0-2) /lpf Urine Mucus (None) /hpf Urine Yeast (Budding) (None) /hpf U Benzodiazepines Scrn (NotDetected) U Marijuana (THC) Screen (NotDetected) 07/19/24 07/19/24 07/19/24 Range/Units 18:45 22:53 23:31 WBC (3.8-10.6) k/uL RBC (4.30-5.90) m/uL Hgb (13.0-17.5) gm/dL Hct (39.0-53.0) % Plt Count (150-450) k/uL Lymphocytes # (1.0-4.8) k/uL PT (10.0-12.5) sec INR (<1.2) APTT (22.0-30.0) sec ABG pO2 252 H (83-108) mmHg ABG HCO3 27 H (21-25) mmol/L ABG Total CO2 28 H (19-24) mmol/L ABG O2 Saturation 100.5 H (94-97) % Sodium (137-145) mmol/L Potassium (3.5-5.1) mmol/L BUN (9-20) mg/dL Creatinine (0.66-1.25) mg/dL Glucose (74-99) mg/dL Plasma Lactic Acid Tay 2.5 H* (0.7-2.0) mmol/L Calcium (8.4-10.2) mg/dL Magnesium (1.6-2.3) mg/dL Total Bilirubin (0.2-1.3) mg/dL Ammonia 51 H (<30) umol/L Troponin I (0.000-0.034) ng/mL Urine Protein 3+ H (Negative) Urine Glucose (UA) 1+ H (Negative) Urine Blood Moderate H (Negative) Urine RBC 28 H (0-5) /hpf Urine WBC 32 H (0-5) /hpf Urine WBC Clumps Rare H (None) /hpf Amorphous Sediment Rare H (None) /hpf Urine Bacteria Rare H (None) /hpf Hyaline Casts 31 H (0-2) /lpf Urine Mucus Occasional H (None) /hpf Urine Yeast (Budding) Few H (None) /hpf U Benzodiazepines Scrn Detected H (NotDetected) U Marijuana (THC) Screen Detected H (NotDetected) 07/20/24 07/20/24 07/20/24 Range/Units 00:07 03:11 03:11 WBC (3.8-10.6) k/uL RBC 3.64 L (4.30-5.90) m/uL Hgb 11.7 L (13.0-17.5) gm/dL Hct 35.8 L (39.0-53.0) % Plt Count 104 L (150-450) k/uL Lymphocytes # 0.4 L (1.0-4.8) k/uL PT (10.0-12.5) sec INR (<1.2) APTT (22.0-30.0) sec ABG pO2 (83-108) mmHg ABG HCO3 (21-25) mmol/L ABG Total CO2 (19-24) mmol/L ABG O2 Saturation (94-97) % Sodium (137-145) mmol/L Potassium (3.5-5.1) mmol/L BUN (9-20) mg/dL Creatinine (0.66-1.25) mg/dL Glucose (74-99) mg/dL Plasma Lactic Acid Tay (0.7-2.0) mmol/L Calcium (8.4-10.2) mg/dL Magnesium (1.6-2.3) mg/dL Total Bilirubin (0.2-1.3) mg/dL Ammonia 44 H (<30) umol/L Troponin I 0.129 H* (0.000-0.034) ng/mL Urine Protein (Negative) Urine Glucose (UA) (Negative) Urine Blood (Negative) Urine RBC (0-5) /hpf Urine WBC (0-5) /hpf Urine WBC Clumps (None) /hpf Amorphous Sediment (None) /hpf Urine Bacteria (None) /hpf Hyaline Casts (0-2) /lpf Urine Mucus (None) /hpf Urine Yeast (Budding) (None) /hpf U Benzodiazepines Scrn (NotDetected) U Marijuana (THC) Screen (NotDetected) 07/20/24 07/20/24 07/20/24 Range/Units 03:11 03:11 03:13 WBC (3.8-10.6) k/uL RBC (4.30-5.90) m/uL Hgb (13.0-17.5) gm/dL Hct (39.0-53.0) % Plt Count (150-450) k/uL Lymphocytes # (1.0-4.8) k/uL PT (10.0-12.5) sec INR (<1.2) APTT 41.7 H (22.0-30.0) sec ABG pO2 (83-108) mmHg ABG HCO3 (21-25) mmol/L ABG Total CO2 (19-24) mmol/L ABG O2 Saturation (94-97) % Sodium 131 L (137-145) mmol/L Potassium (3.5-5.1) mmol/L BUN (9-20) mg/dL Creatinine 0.61 L (0.66-1.25) mg/dL Glucose (74-99) mg/dL Plasma Lactic Acid Tay (0.7-2.0) mmol/L Calcium 8.3 L (8.4-10.2) mg/dL Magnesium 1.4 L (1.6-2.3) mg/dL Total Bilirubin (0.2-1.3) mg/dL Ammonia (<30) umol/L Troponin I 0.204 H* (0.000-0.034) ng/mL Urine Protein (Negative) Urine Glucose (UA) (Negative) Urine Blood (Negative) Urine RBC (0-5) /hpf Urine WBC (0-5) /hpf Urine WBC Clumps (None) /hpf Amorphous Sediment (None) /hpf Urine Bacteria (None) /hpf Hyaline Casts (0-2) /lpf Urine Mucus (None) /hpf Urine Yeast (Budding) (None) /hpf U Benzodiazepines Scrn (NotDetected) U Marijuana (THC) Screen (NotDetected) 07/20/24 07/20/24 07/20/24 Range/Units 05:31 05:50 10:21 WBC (3.8-10.6) k/uL RBC (4.30-5.90) m/uL Hgb (13.0-17.5) gm/dL Hct (39.0-53.0) % Plt Count (150-450) k/uL Lymphocytes # (1.0-4.8) k/uL PT (10.0-12.5) sec INR (<1.2) APTT 47.1 H (22.0-30.0) sec ABG pO2 (83-108) mmHg ABG HCO3 27 H (21-25) mmol/L ABG Total CO2 28 H (19-24) mmol/L ABG O2 Saturation 98.6 H (94-97) % Sodium (137-145) mmol/L Potassium (3.5-5.1) mmol/L BUN (9-20) mg/dL Creatinine (0.66-1.25) mg/dL Glucose (74-99) mg/dL Plasma Lactic Acid Tay (0.7-2.0) mmol/L Calcium (8.4-10.2) mg/dL Magnesium (1.6-2.3) mg/dL Total Bilirubin (0.2-1.3) mg/dL Ammonia (<30) umol/L Troponin I 0.204 H* (0.000-0.034) ng/mL Urine Protein (Negative) Urine Glucose (UA) (Negative) Urine Blood (Negative) Urine RBC (0-5) /hpf Urine WBC (0-5) /hpf Urine WBC Clumps (None) /hpf Amorphous Sediment (None) /hpf Urine Bacteria (None) /hpf Hyaline Casts (0-2) /lpf Urine Mucus (None) /hpf Urine Yeast (Budding) (None) /hpf U Benzodiazepines Scrn (NotDetected) U Marijuana (THC) Screen (NotDetected)
[2024-07-20] MEDS: PIPERACILLIN-TAZOBACTAM 3.375 GM in SODIUM CHLORIDE 0.9% 100 ML IVPB SCH ×2 (12:35→20:27)
--- NOTE | 2024-07-20 13:52 | OP ---
OPERATIVE REPORT DATE OF SERVICE : PROCEDURE PERFORMED: Placement of a left radial arterial line. PREOPERATIVE DIAGNOSIS: Acute respiratory failure with acute delirium tremens. POSTOPERATIVE DIAGNOSIS: Acute respiratory failure with acute delirium tremens. ANESTHESIA USED: None deployed. DESCRIPTION OF PROCEDURE: The patient was placed in the supine position, the left wrist was prepared in a sterile fashion. Drapes were applied. The left radial artery was palpated, cannulated easily and a guidewire was placed, a Cook's catheter was inserted over the guidewire, and the guidewire was removed. Good blood flow, good waveform noted, no complications. Line was secured using 3.0 silk sutures. MMODL / IJN: [id number] /
--- NOTE | 2024-07-20 16:59 | P.CRDCN ---
History of Present Illness History of present illness: HISTORY OF PRESENTING ILLNESS Patient is a pleasant 59-year-old male with history of CAD status post CABG approximately 25 years ago, ischemic cardiomyopathy status post AICD, ventricular tachycardia status post VT ablation, paroxysmal atrial fibrillation, hypertension, alcohol abuse, tobacco abuse, PAD with prior bifemoral bypass in 2012, previous carotid endarterectomy March 2020 as well as previous left atrial appendage thrombus which improved after anticoagulation. He normally follows with Dr. Kruse from [facility]. He has had a number of admissions at [facility] previous workup in February 2022 showing EF 40%. Patient currently intubated and sedated and history is supplied by chart. Per report, patient presented with a fall at home and concern of a seizure. Apparently patient has been attempting to withdraw from alcohol and concern of patient withdrawing and having a seizure. Patient was intubated and sedated in the emergency department with concern of alcohol seizure withdrawals and received Ativan and emergency department and on Versed drip. Cardiology was consult and secondary A. fib with RVR on presentation however heart rates much improved after sedation. He does AICD. He remains on ventilator with FiO2 60%. Echocardiogram performed which shows EF 25-30%, mild aortic regurgitation, mild mitral regurgitation and RVSP of 66. He received 1 dose of IV Lasix however also has been receiving IV fluids at 75 mL per hour. He has adequate urine output. He was initially having significant ventricular ectopy however this improved with replacing electrolytes and sedation. On presentation sodium 133, potassium 2.8, lactic acid 2.5, creatinine 0.5. He does have pancytopenia with white blood cell count 3.0, hemoglobin 11.9, platelets 122. Troponin 0.12, 0.20, 0.20. EKG shows normal A. fib with LVH with strain with ST depressions V5 through V6 with poor R-wave progression, complete left bundle branch block. REVIEW OF SYSTEMS At the time of my exam: Unable to obtain secondary patient being intubated and sedated PHYSICAL EXAMINATION Vital signs reviewed. CONSTITUTIONAL: No apparent distress, intubated and sedated HEENT: Head is normocephalic. Pupils are equal, round. Sclerae anicteric. Mucous membranes of the mouth are moist. No JVD. No carotid bruit. CHEST EXAMINATION: Lungs are clear to auscultation. No chest wall tenderness is noted on palpation or with deep breathing. HEART EXAMINATION: Regular rate and rhythm. S1, S2 heard. No murmurs, gallops or rub. ABDOMEN: Soft, nontender. Positive bowel sounds. EXTREMITIES: 2+ peripheral pulses, no lower extremity edema and no calf tenderness. NEUROLOGIC EXAMINATION: Patient is sedated and intubated ASSESSMENT Persistent A. fib with initial RVR, improved Cardiomyopathy likely component of alcohol-induced cardiomyopathy as well as CAD with prior CABG Non-STEMI likely type II related to seizure Status post AICD Alcohol abuse Seizures Hypokalemia Hyponatremia PLAN Patient with mildly elevated troponins however appears likely type II mechanism related to seizure, withdrawals. Hold Entresto for now given decreased blood pressure. Continue with supportive care. Alcohol cessation. Optimize heart failure regimen once blood pressures improved. Prognosis guarded. Past Medical History Past Medical History: Atrial Fibrillation, Chest Pain / Angina, Heart Failure, COPD, Diabetes Mellitus, Hypertension, Liver Disease, Myocardial Infarction (NV), Respiratory Disorder, Syncope Additional Past Medical History / Comment(s): 07/19/2024- no info in system- all placed in history per patients recollection- Home oxygen use@2-3L PRN COPD, NV- patient reports having 3-4 NV's 07/19/24, + CABG scar, + AICD/PCCM "I have a machine inside that sends all the info to my heart doctor" , Abdominal Hernia khan rgery x2, paracentesis as needed- last times was at [facility] about 3-4 months ago per patient History of Any Multi-Drug Resistant Organisms: None Reported Past Surgical History: AICD, Cholecystectomy, Coronary Bypass/CABG, Heart Catheterization With Stent, Hernia Repair, Pacemaker Additional Past Surgical History / Comment(s): CABG, AICD/Pacemaker placed about 10 years ago per patient 07/19/24, Hernia repair abdominal x2 Past Psychological History: Anxiety Smoking Status: Current every day smoker Past Alcohol Use History: Abuse, Daily, Heavy Past Drug Use History: Marijuana Medications and Allergies Home Medications Medication Instructions Recorded Confirmed Type Bumetanide [BUMEX] 2 mg PO DIRECTED 07/19/24 07/19/24 History Empagliflozin [Jardiance] 10 mg PO DIRECTED 07/19/24 07/19/24 History HYDROcodone/APAP 10-325MG [[place] 1 tab PO Q6H PRN 07/19/24 07/19/24 History 10-325] LORazepam 2 mg PO TID PRN 07/19/24 07/19/24 History Sacubitril/Valsartan [Entresto 24 1 tab PO DIRECTED 07/19/24 07/19/24 History mg-26 mg Tablet] Allergies Allergy/AdvReac Type Severity Reaction Status Date / Time No Known Allergies Allergy Verified 07/19/24 20:02 Physical Exam Vitals: Vital Signs Temp Pulse Resp BP Pulse Ox FiO2 07/20/24 16:00 98.2 F 82 23 123/79 100 60 07/20/24 15:48 82 07/20/24 15:37 74 07/20/24 15:33 60 07/20/24 15:30 74 13 101/74 100 07/20/24 15:00 68 20 96/62 99 07/20/24 14:30 70 20 93/61 98 07/20/24 14:00 72 20 98/60 98 07/20/24 13:30 78 20 92/60 98 07/20/24 13:00 77 21 106/65 98 07/20/24 12:30 71 20 101/61 99 07/20/24 12:00 97.9 F 72 21 94/65 99 60 07/20/24 11:30 68 17 96/63 98 07/20/24 11:28 74 07/20/24 11:17 71 07/20/24 11:13 60 07/20/24 11:00 73 20 92/64 99 07/20/24 10:30 67 11 L 90/58 99 07/20/24 10:00 66 16 93/63 94 L 07/20/24 09:30 68 21 110/73 92 L 07/20/24 09:00 72 31 H 96/67 97 07/20/24 08:49 73 07/20/24 08:39 68 07/20/24 08:30 63 16 104/64 100 07/20/24 08:00 97.6 F 64 20 97/66 100 60 07/20/24 07:36 60 07/20/24 07:30 62 21 111/74 07/20/24 07:00 59 L 21 87/62 100 07/20/24 06:30 61 21 90/57 99 07/20/24 06:00 65 22 91/64 07/20/24 05:30 64 20 87/65 98 07/20/24 05:00 67 20 99/67 98 07/20/24 04:49 78 07/20/24 04:40 75 07/20/24 04:34 60 07/20/24 04:30 62 20 89/66 97 07/20/24 04:00 98.2 F 65 20 122/83 99 60 07/20/24 03:30 65 20 118/77 100 07/20/24 03:00 66 20 92/60 100 07/20/24 02:30 65 20 105/88 99 07/20/24 02:00 24 90/64 94 L 07/20/24 01:00 71 25 H 92/62 97 07/20/24 00:30 77 28 H 126/80 96 07/20/24 00:21 79 07/20/24 00:20 60 07/20/24 00:00 98.5 F 99 20 140/94 98 100 07/19/24 23:54 100 07/19/24 23:34 88 20 135/88 99 07/19/24 23:30 89 20 133/110 98 07/19/24 23:15 20 116/77 97 07/19/24 23:06 60 07/19/24 23:00 76 20 64/46 98 07/19/24 22:53 60 07/19/24 22:45 79 20 72/47 98 07/19/24 22:39 100 07/19/24 22:30 83 20 93/63 98 07/19/24 22:15 108 H 20 164/135 93 L 07/19/24 22:00 126 H 15 151/103 88 L 07/19/24 21:45 126 H 13 179/157 95 07/19/24 21:30 151 H 46 H 95 07/19/24 21:28 97 07/19/24 20:20 132 H 22 188/141 94 L 07/19/24 20:18 128 H 26 H 188/147 95 07/19/24 20:10 126 H 22 195/121 94 L 07/19/24 19:30 130 H 25 H 154/92 91 L 07/19/24 18:29 98 18 149/79 96 07/19/24 17:55 99.3 F 90 20 128/65 94 L Intake and Output 07/20/24 07/20/24 07/20/24 06:59 14:59 22:59 Intake Total 2299.369 890.108 Output Total 330 2300 Balance 1969.369 -1409.892 Intake: Intake, IV Titration 2299.369 890.108 Amount Heparin Sod,Pork in 0.45% 37.465 NaCl 25,000 unit In 0.45 % NaCl 1 250ml.bag @ 12 UNITS/KG/HR 9.525 mls/hr IV .Q24H [facility] Rx#: [id number] Magnesium Sulfate-D5w Pmx 200 1 gm In Dextrose/Water 1 100ml.bag @ 100 mls/hr IVPB Q1H [facility] Rx#: [id number] Midazolam HCl 50 mg In 21.783 45.817 Sodium Chloride 0.9% 40 ml @ 1 MG/HR 1 mls/hr IV .Q24H [facility] Rx#:[id number] Piperacillin-Tazobactam 3 100 .375 gm In Sodium Chloride 0.9% 100 ml @ 25 mls/hr IVPB Q8H [facility] Rx#: [id number] Potassium Chloride 10 meq 200 In Water For Injection 1 100ml.bag @ 100 mls/hr IVPB Q1HR [facility] Rx#: [id number] Sodium Chloride 0.9% 1, 700 700 000 ml @ 100 mls/hr IV . Q10H [facility] Rx#:[id number] Sodium Chloride 0.9% 1, 130 000 ml @ 130 mls/hr IV . Q7H42M [facility] Rx#:[id number] Sodium Chloride 0.9% 1, 1000 000 ml @ 999 mls/hr IV . Q1H1M [facility] Rx#:[id number] propofoL 1,000 mg In 10.121 44.291 Empty Bag 1 bag @ 15 MCG/ KG/MIN 7.144 mls/hr IV . Q14H [facility] Rx#:[id number] Output: Urine 330 2300 Other: Voiding Method Indwelling Catheter Indwelling Catheter Indwelling Catheter Weight 75.3 kg 75.3 kg ABP, PAP, CO, CI - Last 8 Hours Arterial Blood Pressure 144/61 Arterial Blood Pressure 146/67 Arterial Blood Pressure 127/56 Arterial Blood Pressure 112/50 Arterial Blood Pressure 112/49 Arterial Blood Pressure 111/50 Arterial Blood Pressure 113/52 Arterial Blood Pressure 132/59 Arterial Blood Pressure 119/53 Arterial Blood Pressure 109/51 Arterial Blood Pressure 105/54 Results 07/20/24 03:11 07/20/24 03:11 Cardiac Enzymes 07/19/24 07/20/24 07/20/24 Range/Units 18:45 00:07 03:13 AST 35 (17-59) U/L Troponin I 0.129 H* 0.204 H* (0.000-0.034) ng/mL 07/20/24 Range/Units 05:31 AST (17-59) U/L Troponin I 0.204 H* (0.000-0.034) ng/mL Coagulation 07/19/24 07/20/24 07/20/24 Range/Units 18:45 03:11 10:21 PT 14.7 H (10.0-12.5) sec APTT 28.5 41.7 H 47.1 H (22.0-30.0) sec CBC 07/19/24 07/20/24 Range/Units 18:45 03:11 WBC 3.0 L 4.2 (3.8-10.6) k/uL RBC 3.79 L 3.64 L (4.30-5.90) m/uL Hgb 11.9 L 11.7 L (13.0-17.5) gm/dL Hct 36.7 L 35.8 L (39.0-53.0) % Plt Count 122 L 104 L (150-450) k/uL Comprehensive Metabolic Panel 07/19/24 07/20/24 Range/Units 18:45 03:11 Sodium 133 L 131 L (137-145) mmol/L Potassium 2.8 L 3.5 (3.5-5.1) mmol/L Chloride 99 104 (98-107) mmol/L Carbon Dioxide 30 24 (22-30) mmol/L BUN 8 L 10 (9-20) mg/dL Creatinine 0.53 L 0.61 L (0.66-1.25) mg/dL Glucose 109 H 93 (74-99) mg/dL Calcium 8.8 8.3 L (8.4-10.2) mg/dL AST 35 (17-59) U/L ALT 11 (4-49) U/L Alkaline Phosphatase 120 (38-126) U/L Total Protein 7.0 (6.3-8.2) g/dL Albumin 3.5 (3.5-5.0) g/dL Current Medications Generic Name Dose Route Start Last Admin Trade Name Freq PRN Reason Stop Dose Admin Albuterol/Ipratropium 3 ml 07/20/24 00:00 07/20/24 15:36 Ipratropium-Albuterol 3 Ml Neb INHALATION 3 ml RT-Q4H [facility] Administration Chlorhexidine Gluconate 15 ml 07/20/24 09:00 07/20/24 07:52 Chlorhexidine Gluconate 15 Ml Cup MUCOUS MEM 15 ml BID [facility] Administration Dexmedetomidine HCl 400 mcg/ 100 mls @ 3.969 mls/hr 07/19/24 20:30 07/19/24 22:37 IV Solution IV 0 mcg/kg/hr .Q24H [facility] 0 mls/hr Titration Protocol 0.2 MCG/KG/HR Midazolam HCl 50 mg/ Sodium 50 mls @ 1 mls/hr 07/19/24 22:15 07/20/24 13:30 Chloride IV 0 mg/hr .Q24H [facility] 0 mls/hr Titration Protocol 1 MG/HR Diltiazem HCl 125 mg/ Sodium 125 mls @ 0 mls/hr 07/19/24 22:15 Chloride IV .Q0M [facility] Protocol Per Protocol Propofol 1,000 mg/ IV Solution 100 mls @ 7.144 mls/hr 07/19/24 23:45 07/20/24 12:35 IV 25 mcg/kg/min .Q14H [facility] 11.907 mls/hr Administration Protocol 15 MCG/KG/MIN Sodium Chloride 1,000 mls @ 100 mls/hr 07/19/24 23:45 07/20/24 07:53 Saline 0.9% IV 100 mls/hr .Q10H [facility] Administration Heparin Sodium/Sodium Chloride 250 mls @ 9.525 mls/hr 07/19/24 23:45 07/20/24 04:38 25,000 unit/ Sodium Chloride IV 14 units/kg/hr .Q24H [facility] 11.113 mls/hr Titration Protocol 12 UNITS/KG/HR Piperacillin Sod/Tazobactam 100 mls @ 25 mls/hr 07/20/24 20:00 Sod 3.375 gm/ Sodium Chloride IVPB Q8H [facility] Protocol Lactulose 20 gm 07/19/24 23:15 07/20/24 07:52 Lactulose 20 Gm/30 Ml Cup PO 20 gm TID [facility] Administration Lorazepam 1 mg 07/19/24 19:34 Lorazepam 2 Mg/Ml Inj IV Q1HR PRN CIWA 10 to 15 Lorazepam 1 mg 07/19/24 19:34 Lorazepam 2 Mg/Ml Inj IV Q2HR PRN CIWA 8 or 9 Miscellaneous Information 1 each 07/19/24 19:36 Potassium Replacement Protocol 1 Each Misc MISCELLANE DAILY PRN Per Protocol Protocol Naloxone HCl 0.2 mg 07/19/24 20:30 Naloxone 0.4 Mg/Ml 1 Ml Vial IV Q2M PRN Opioid Reversal Pantoprazole Sodium 40 mg 07/20/24 09:00 07/20/24 07:52 Pantoprazole 40 Mg/10 Ml Vial IVP 40 mg DAILY [facility] Administration Thiamine HCl 100 mg 07/20/24 09:00 07/20/24 07:52 Thiamine 100 Mg Tab PO 100 mg DAILY [facility] Administration Intake and Output 07/20/24 07/20/24 07/20/24 06:59 14:59 22:59 Intake Total 2299.369 890.108 Output Total 330 2300 Balance 1969.369 -1409.892 Intake: Intake, IV Titration 2299.369 890.108 Amount Heparin Sod,Pork in 0.45% 37.465 NaCl 25,000 unit In 0.45 % NaCl 1 250ml.bag @ 12 UNITS/KG/HR 9.525 mls/hr IV .Q24H [facility] Rx#: [id number] Magnesium Sulfate-D5w Pmx 200 1 gm In Dextrose/Water 1 100ml.bag @ 100 mls/hr IVPB Q1H [facility] Rx#: [id number] Midazolam HCl 50 mg In 21.783 45.817 Sodium Chloride 0.9% 40 ml @ 1 MG/HR 1 mls/hr IV .Q24H [facility] Rx#:[id number] Piperacillin-Tazobactam 3 100 .375 gm In Sodium Chloride 0.9% 100 ml @ 25 mls/hr IVPB Q8H [facility] Rx#: [id number] Potassium Chloride 10 meq 200 In Water For Injection 1 100ml.bag @ 100 mls/hr IVPB Q1HR [facility] Rx#: [id number] Sodium Chloride 0.9% 1, 700 700 000 ml @ 100 mls/hr IV . Q10H [facility] Rx#:[id number] Sodium Chloride 0.9% 1, 130 000 ml @ 130 mls/hr IV . Q7H42M [facility] Rx#:[id number] Sodium Chloride 0.9% 1, 1000 000 ml @ 999 mls/hr IV . Q1H1M [facility] Rx#:[id number] propofoL 1,000 mg In 10.121 44.291 Empty Bag 1 bag @ 15 MCG/ KG/MIN 7.144 mls/hr IV . Q14H [facility] Rx#:[id number] Output: Urine 330 2300 Other: Voiding Method Indwelling Catheter Indwelling Catheter Indwelling Catheter Weight 75.3 kg 75.3 kg Patient Weight 07/21/24 06:59 Weight 75.3 kg 07/20/24 03:11 07/20/24 03:11
[2024-07-21 00:18] LABS: Glucose,Whole Blood 100 mg/dL (70-110)
[2024-07-21 04:55] LABS: Basophils % (A) 0 %; Eosinophils % (A) 1 %; HCT 36.7 % (39.0-53.0); HGB 11.6 gm/dL (13.0-17.5); Hypochromasia Moderate; Lymphocytes # (A) 0.6 k/uL (1.0-4.8); Lymphocytes % (A) 12 %; MCH 31.2 pg (25.0-35.0); MCHC 31.6 g/dL (31.0-37.0); MCV 98.9 fL (80.0-100.0); Mean Platelet Volume 8.1; Monocytes # (A) 0.3 k/uL (0-1.0); Monocytes % (A) 6 %; Neutrophils # (A) 3.6 k/uL (1.3-7.7); Neutrophils % (A) 79 %; Platelet Count 102 k/uL (150-450); RBC 3.71 m/uL (4.30-5.90); WBC 4.5 k/uL (3.8-10.6)
[2024-07-21 05:03] LABS: African American GFR (CKD) >90 (>60 ml/min/1.73 sqM); Anion Gap 3 mmol/L; Blood Urea Nitrogen 10 mg/dL (9-20); Calcium 8.4 mg/dL (8.4-10.2); Carbon Dioxide 24 mmol/L (22-30); Chloride 107 mmol/L (98-107); Glucose 99 mg/dL (74-99); Magnesium 1.5 mg/dL (1.6-2.3); Non-African American GFR(CKD) >90 (>60 ml/min/1.73 sqM); Phosphorus 4.1 mg/dL (2.5-4.5); Potassium 3.2 mmol/L (3.5-5.1); Sodium 134 mmol/L (137-145)
[2024-07-21 05:20] LABS: ABG HCO3 26 mmol/L (21-25); ABG PCO2 40 mmHg (35-45); ABG PH 7.41 (7.35-7.45); ABG PO2 217 mmHg (83-108); ABG TCO2 27 mmol/L (19-24); Allen Test Performed? Yes
[2024-07-21] MEDS: MAGNESIUM SULFATE-D5W PMX 1 GM in DEXTROSE/WATER 1 100ML.BAG IVPB SCH ×2 (05:33→14:19)
[2024-07-21] MEDS: POTASSIUM BICARBONATE/CIT AC 20 MEQ TABLET.EFF NG-TUBE SCH ×3 (05:33→20:09)
--- NOTE | 2024-07-21 05:40 | P.PN ---
Subjective HISTORY OF PRESENTING ILLNESS Patient is a pleasant 59-year-old male with history of CAD status post CABG approximately 25 years ago, ischemic cardiomyopathy status post AICD, ventricular tachycardia status post VT ablation, paroxysmal atrial fibrillation, hypertension, alcohol abuse, tobacco abuse, PAD with prior bifemoral bypass in 2012, previous carotid endarterectomy March 2020 as well as previous left atrial appendage thrombus which improved after anticoagulation. He normally follows with Dr. Kruse from [facility]. He has had a number of admissions at [facility] previous workup in February 2022 showing EF 40%. Patient currently intubated and sedated and history is supplied by chart. Per report, patient presented with a fall at home and concern of a seizure. Apparently patient has been attempting to withdraw from alcohol and concern of patient withdrawing and having a seizure. Patient was intubated and sedated in the emergency department with concern of alcohol seizure withdrawals and received Ativan and emergency department and on Versed drip. Cardiology was consult and secondary A. fib with RVR on presentation however heart rates much improved after sedation. He does AICD. He remains on ventilator with FiO2 60%. Echocardiogram performed which shows EF 25-30%, mild aortic regurgitation, mild mitral regurgitation and RVSP of 66. He received 1 dose of IV Lasix however also has been receiving IV fluids at 75 mL per hour. He has adequate urine output. He was initially having significant ventricular ectopy however this improved with replacing electrolytes and sedation. On presentation sodium 133, potassium 2.8, lactic acid 2.5, creatinine 0.5. He does have pancytopenia with white blood cell count 3.0, hemoglobin 11.9, platelets 122. Troponin 0.12, 0.20, 0.20. EKG shows normal A. fib with LVH with strain with ST depressions V5 through V6 with poor R-wave progression, complete left bundle branch block. 07/21 patient seen and examined. Patient remains intubated on 40% FiO2. Repeat blood work shows stable creatinine and sodium 134. He is receiving IV fluids at 100 mL per hour. Remains on heparin drip. Remains in A. fib with some ectopy cvr. Blood pressure somewhat increased up into the 140s to 150s systolic. PHYSICAL EXAMINATION Vital signs reviewed. CONSTITUTIONAL: No apparent distress, intubated and sedated HEENT: Head is normocephalic. Pupils are equal, round. Sclerae anicteric. Mucous membranes of the mouth are moist. No JVD. No carotid bruit. CHEST EXAMINATION: Lungs are clear to auscultation. No chest wall tenderness is noted on palpation or with deep breathing. HEART EXAMINATION: Regular rate and rhythm. S1, S2 heard. No murmurs, gallops or rub. ABDOMEN: Soft, nontender. Positive bowel sounds. EXTREMITIES: 2+ peripheral pulses, no lower extremity edema and no calf tenderness. NEUROLOGIC EXAMINATION: Patient is sedated and intubated ASSESSMENT Persistent A. fib with initial RVR, improved Cardiomyopathy likely component of alcohol-induced cardiomyopathy as well as ischemic CAD with prior CABG Non-STEMI likely type II related to seizure Status post AICD Alcohol abuse Seizures Hypokalemia Hyponatremia PLAN Patient with mildly elevated troponins however appears likely type II mechanism related to seizure, withdrawals. Blood pressure somewhat better and therefore start Toprol and possibly restart Entresto later today if BP remains stable or increases. Monitor fluid status however currently does not appear volume overloaded and minimal output urine 30 mL per hour. Likely decrease IV fluids once tube feeds increase or in next 24 hours. Change heparin to Eliquis Continue with supportive care. Alcohol cessation. Prognosis guarded. Objective - Vital Signs Vital signs: Vital Signs Temp 98.8 F 07/21/24 04:00 Pulse 89 07/21/24 05:00 Resp 20 07/21/24 05:00 BP 150/97 07/21/24 05:00 Pulse Ox 98 07/21/24 05:00 FiO2 40 07/21/24 05:22 Intake & Output 07/20/24 07/20/24 07/21/24 06:59 18:59 06:59 Intake Total 2605.719 9507.694 3348.061 Output Total 330 3015 610 Balance 2275.719 -4775.142 6508.061 Weight 75.3 kg 75.3 kg 73 kg Intake: Intake, IV Titration 2605.719 1365.446 4943.061 Amount Dexmedetomidine/0.9% NaCl 6.35 (Pmx) 400 mcg In Empty Bag 1 bag @ 0.2 MCG/KG/HR 3.969 mls/hr IV .Q24H [facility] Rx#:[id number] Heparin Sod,Pork in 0.45% 37.465 NaCl 25,000 unit In 0.45 % NaCl 1 250ml.bag @ 12 UNITS/KG/HR 9.525 mls/hr IV .Q24H [facility] Rx#: [id number] Magnesium Sulfate-D5w Pmx 100 1 gm In Dextrose/Water 1 100ml.bag @ 100 mls/hr IVPB ONCE [facility] Rx#: [id number] Magnesium Sulfate-D5w Pmx 200 1 gm In Dextrose/Water 1 100ml.bag @ 100 mls/hr IVPB Q1H [facility] Rx#: [id number] Midazolam HCl 50 mg In 21.783 45.817 Sodium Chloride 0.9% 40 ml @ 1 MG/HR 1 mls/hr IV .Q24H [facility] Rx#:[id number] Piperacillin-Tazobactam 3 100 100 .375 gm In Sodium Chloride 0.9% 100 ml @ 25 mls/hr IVPB Q8H [facility] Rx#: [id number] Piperacillin-Tazobactam 3 100 .375 gm In Sodium Chloride 0.9% 100 ml @ 25 mls/hr IVPB Q8HR [facility] Rx# :[id number] Potassium Chloride 10 meq 400 In Water For Injection 1 100ml.bag @ 100 mls/hr IVPB Q1HR [facility] Rx#: [id number] Sodium Chloride 0.9% 1, 700 1200 1100 000 ml @ 100 mls/hr IV . Q10H [facility] Rx#:[id number] Sodium Chloride 0.9% 1, 130 000 ml @ 130 mls/hr IV . Q7H42M [facility] Rx#:[id number] Sodium Chloride 0.9% 1, 1000 000 ml @ 999 mls/hr IV . Q1H1M [facility] Rx#:[id number] propofoL 1,000 mg In 10.121 44.291 169.061 Empty Bag 1 bag @ 15 MCG/ KG/MIN 7.144 mls/hr IV . Q14H [facility] Rx#:[id number] Tube Feeding 120 Other 90 Output: Gastric Drainage 500 300 Urine 330 2515 310 Other: Voiding Method Indwelling Catheter Indwelling Catheter Indwelling Catheter ABP, PAP, CO, CI - Last Documented Arterial Blood Pressure 164/73 - Labs CBC & Chem 7: 07/21/24 04:40 07/21/24 04:40 Labs: Abnormal Lab Results - Last 24 Hours (Table) 10/03/24 10/03/24 10/03/24 Range/Units 05:31 05:50 10:21 RBC (4.30-5.90) m/uL Hgb (13.0-17.5) gm/dL Hct (39.0-53.0) % Plt Count (150-450) k/uL Lymphocytes # (1.0-4.8) k/uL APTT 47.1 H (22.0-30.0) sec ABG pO2 (83-108) mmHg ABG HCO3 27 H (21-25) mmol/L ABG Total CO2 28 H (19-24) mmol/L ABG O2 Saturation 98.6 H (94-97) % Hemoglobin (13.0-17.5) gm/dL Sodium (137-145) mmol/L Potassium (3.5-5.1) mmol/L Magnesium (1.6-2.3) mg/dL Troponin I 0.204 H* (0.000-0.034) ng/mL 07/21/24 07/21/24 07/21/24 Range/Units 04:40 04:40 04:40 RBC 3.71 L (4.30-5.90) m/uL Hgb 11.6 L (13.0-17.5) gm/dL Hct 36.7 L (39.0-53.0) % Plt Count 102 L (150-450) k/uL Lymphocytes # 0.6 L (1.0-4.8) k/uL APTT 47.5 H (22.0-30.0) sec ABG pO2 (83-108) mmHg ABG HCO3 (21-25) mmol/L ABG Total CO2 (19-24) mmol/L ABG O2 Saturation (94-97) % Hemoglobin (13.0-17.5) gm/dL Sodium 134 L (137-145) mmol/L Potassium 3.2 L (3.5-5.1) mmol/L Magnesium 1.5 L (1.6-2.3) mg/dL Troponin I (0.000-0.034) ng/mL 07/21/24 Range/Units 05:17 RBC (4.30-5.90) m/uL Hgb (13.0-17.5) gm/dL Hct (39.0-53.0) % Plt Count (150-450) k/uL Lymphocytes # (1.0-4.8) k/uL APTT (22.0-30.0) sec ABG pO2 217 H (83-108) mmHg ABG HCO3 26 H (21-25) mmol/L ABG Total CO2 27 H (19-24) mmol/L ABG O2 Saturation 100.0 H (94-97) % Hemoglobin 11.7 L (13.0-17.5) gm/dL Sodium (137-145) mmol/L Potassium (3.5-5.1) mmol/L Magnesium (1.6-2.3) mg/dL Troponin I (0.000-0.034) ng/mL Microbiology - Last 24 Hours (Table) 07/19/24 22:30 Gram Stain - Preliminary Sputum
[2024-07-21 06:21] LABS: Glucose,Whole Blood 101 mg/dL (70-110)
[2024-07-21 06:58] LABS: Glucose,Whole Blood 87 mg/dL (70-110)
[2024-07-21 07:00] LABS: Glucose,Whole Blood 126 mg/dL (70-110)
[2024-07-21 07:01] LABS: Glucose,Whole Blood 99 mg/dL (70-110)
--- NOTE | 2024-07-21 08:32 | XR ---
EXAMINATION TYPE: XR chest 1V portable DATE OF EXAM: 07/21/2024 5:31 AM CLINICAL INDICATION: Male, 59 years old with history of Tube placement; [facility] COMPARISON: Chest radiographs from 07/20/2024 TECHNIQUE: XR chest 1V portable Frontal view of the chest. FINDINGS: Lungs/Pleura: There is no evidence of pleural effusion, focal consolidation, or pneumothorax. Pulmonary vascularity: Pulmonary vascular congestion. Heart/mediastinum: Cardiomediastinal silhouette is enlarged. Two lead cardiac conduction device overl moe the left hemithorax with lead tips projecting over the right ventricle and right atrium. Musculoskeletal: No acute osseous pathology. Midline sternotomy wires are noted. Other findings: None Lines/Tubes: Endotracheal tube with distal tip 4.5cm above the ozzie. Nasogastric tube with its distal tip and side-port projecting under the diaphragm. IMPRESSION: 1. Support tubes in satisfactory position. 2. Similar airspace opacities in the right lung base with somewhat diffuse pulmonary edema. [facility], , 07/21/2024 8:30 AM
[2024-07-21] MEDS: FUROSEMIDE 10 MG/ML 4 ML VIAL IV STA (08:34)
[2024-07-21] MEDS: METOPROLOL SUCCINATE (ER) 25 MG TAB.ER.24H PO SCH (08:34)
[2024-07-21] MEDS: APIXABAN 5 MG TAB PO SCH (08:34)
--- NOTE | 2024-07-21 11:22 | CDI ---
Documentation Clarification Form Date: 07/21/2024 11:18:30 AM From: Esperanza Flores RN, CCDS Phone: [phone] Admit Date: 07/19/2024 08:32:00 PM Patient Name: Jaron Price Visit Number: [id number] Discharge Date: ATTENTION: The Clinical Documentation Specialists (CDI) and [facility] Coding Staff appreciate your assistance in clarifying documentation. Please respond to the clarification below the line at the bottom and electronically sign. The CDI & [facility] Coding staff will review the response and follow-up if needed. Please note: Queries are made part of the Legal Health Record. If you have any questions, please contact the author of this message via ITS. Doctor/Provider: London Johns Your patient has documented encephalopathic unsure if there was alcohol seizure. Additional clarification regarding the etiology/cause of this symptom is requested. History/Risk Factors: Atrial Fibrillation, Chest Pain / Angina, Heart Failure, COPD, Diabetes Mellitus, Hypertension, Chronic Liver Disease? Myocardial Infarction Clinical Indicators: 59-year-old male with history of alcohol dependence present with alcohol withdrawal seizures, alcohol dependence with severe alcohol withdrawal. 07/19 VS: 154/92 130 25 91% 15% NRB 07/19 Labs: WBC 3.0 PLT 122; ABG pCO2 44, pO2 252, HCO3 27; Lactic acid 2.5 Trop 0.204 Total Bilirubin 2.5 Ammonia 51 UA: LE-NEG; UDS + Benzo, THC + Treatment: ICU/Telemetry monitoring Mechanical vent management per pulmonary Seizure, CIWA protocol Please further clarify the etiology of possible encephalopathic symptoms? [ ] Hepatic encephalopathy due to elevated ammonia level 51 on admission [ ] Hypoxic encephalopathy requiring intubation and mechanical ventilation on admission [ x ] Other condition (please specify____encephalopathy multifactorial, including hepatic and metabolic [ ] Unable to determine (Template Last Revised: November 2020) MTDD
[2024-07-21 12:20] LABS: Glucose,Whole Blood 95 mg/dL (70-110)
--- NOTE | 2024-07-21 13:26 | P.PN ---
Subjective Progress Note Date: 07/21/24 Principal diagnosis: Acute delirium tremens Patient is a 59-year-old male with past medical history significant for alcoholism, atrial fibrillation, coronary artery disease with previous CABG, Heart failure, AICD/pacemaker, diabetes mellitus, hypertension, liver disease, COPD. Patient is currently intubated, therefore, unable to provide any information for HPI. Apparently, patient presented to the emergency department yesterday evening. He had a fall at home. Reportedly did not remember his fall. Of note, patient is an alcoholic, he was recently trying to cut back on his drinking. Last reported drink was approximately 24 hours prior. While in the emergency department, patient had [address] episodes of [address] activity[address] CT of the brain and C-spine did not show any acute intracranial hemorrhage, no mass effect or midline shift. No C-spine fractures or subluxation. He received a total of 6 mg of Ativan, and also was loaded with Keppra. Also, received a dose of Jaspal dol for agitation. He was admitted to the intensive care unit with alcohol withdrawal delirium tremens and suspected alcohol withdrawal seizures. He was also placed on Precedex which was up to 1 mg/kg/h. Despite this, he was agitated and trying to get out of bed. There is concerned that the patient may accidentally himself. Patient ended up requiring intubation for airway protection by JINRIKISHA DRIVER. Postintubation chest x-ray demonstrating the endotracheal tube in appropriate position above the ozzie. There is an orogastric tube coursing into the gastric fundus. Cardiomegaly noted. Possible pulmonary vascular congestion. Initial ABG was drawn postintubation. PaO2 252, pCO2 44, pH of 7.39. This was done on initial ventilator settings including assist- control, respiratory rate 20, tidal volume 450, FiO2 100%, and PEEP of 5. FiO2 was dropped to 60%. On my evaluation, patient appears synchronous with mechanical ventilator. He is on Versed which is infusing at 1 mg/h. No further seizure-like activity noted by RN. Peak pressures are elevated at 32. Static airway pressure 16. There is some airway resistance. Some minimal wheezing and rhonchi on auscultation. There is some thick yellow to brown-colored secretions. Sputum was sent for culture. No witnessed aspiration events. Earlier, patient was reportedly in atrial fibrillation with rapid ventricular response. He still remains in atrial fibrillation, however, rate is better controlled. Not currently on any antiarrhythmics. Blood pressure remained stable, not requiring vasopressors. He did require a 1 L fluid bolus postintubation. Blood pressure now normotensive. Patient will be started on heparin drip per protocol. Also has some elevated serial troponins at 0.129 and 0.204 respectively. EKG: Atrial fibrillation, controlled ventricular response, 95 bpm, T wave inversions in the lateral leads. CBC: WBC count 3, hemoglobin 11.9, hematocrit 36.7, platelets 122. Baseline aPTT 28.5. CMP: Sodium 133, potassium 2.8, chloride 99, serum bicarb 30, BUN 8, creatinine 0.53, glucose 109. Lactic 2.5. LFTs unremarkable. Ammonia was high at 51. Patient was started on lactulose. Serum alcohol less than 10 on arrival. Negative for influenza, RSV, COVID. Patient's potassium is being replaced per protocol. Patient was evaluated today on 07/21/2024, remains intubated mechanically ventilated, remains in the ICU, on assist-control rate of 20 tidal volume 450 FiO2 40% and PEEP of 5 ABG earlier on 60% showed a pO2 of 217 pCO2 40 pH of 7.41 hence FiO2 was cut down to 40%. Patient remains on propofol, sedated, seems to be very calm, and his agitation seems to be fairly well-controlled with propofol. Remains on IV fluid 0.9 normal saline at 100 cc/h remains on Zosyn and he received Lasix earlier today x 1 dose with excellent urine output. Patient had no witnessed seizures while in the ICU, but apparently had seizures prior to presentation to the ICU. Chest x-ray shows airspace opacities in the right lung base with somewhat diffuse pulmonary edema noted and he did receive Lasix earlier today. WBC count today is 4.5 hemoglobin 11.6. Basic metabolic profile is normal except for low potassium of 3.2, magnesium is 1.5 both being corrected accordingly. Sputum culture on this patient is showing Pseudomonas, patient is on Zosyn since admission Objective - Vital Signs Vital signs: Vital Signs Temp 99.3 F 07/21/24 08:00 Pulse 75 07/21/24 12:48 Resp 21 07/21/24 12:00 BP 91/62 07/21/24 12:00 Pulse Ox 98 07/21/24 12:00 FiO2 40 07/21/24 11:19 Intake & Output 07/20/24 07/21/24 07/21/24 18:59 06:59 18:59 Intake Total 5253.917 4948.061 898.608 Output Total 3015 635 1390 Balance -5231.660 3870.061 -491.392 Weight 75.3 kg 73 kg Intake: Intake, IV Titration 5862.825 6212.061 788.608 Amount Dexmedetomidine/0.9% NaCl 1.091 (Pmx) 400 mcg In Empty Bag 1 bag @ 0.2 MCG/KG/HR 3.969 mls/hr IV .Q24H [facility] Rx#:[id number] Magnesium Sulfate-D5w Pmx 200 100 1 gm In Dextrose/Water 1 100ml.bag @ 100 mls/hr IVPB Q1H J[facility]REE Rx#: [id number] Midazolam HCl 50 mg In 45.817 Sodium Chloride 0.9% 40 ml @ 1 MG/HR 1 mls/hr IV .Q24H [facility]AY[facility]REE Rx#:[id number] Piperacillin-Tazobactam 3 100 100 .375 gm In Sodium Chloride 0.9% 100 ml @ 25 mls/hr IVPB Q8H [facility]AY[facility]REE Rx#: [id number] Piperacillin-Tazobactam 3 100 .375 gm In Sodium Chloride 0.9% 100 ml @ 25 mls/hr IVPB Q8HR [facility]REE Rx# :[id number] Sodium Chloride 0.9% 1, 1200 1200 600 000 ml @ 100 mls/hr IV . Q10H [facility] Rx#:[id number] propofoL 1,000 mg In 44.291 169.061 87.517 Empty Bag 1 bag @ 15 MCG/ KG/MIN 7.144 mls/hr IV . Q14H [facility]AY[facility]REE Rx#:[id number] Tube Feeding 140 80 Other 90 30 Output: Gastric Drainage 500 300 Urine 2515 335 1390 Other: Voiding Method Indwelling Catheter Indwelling Catheter Indwelling Catheter ABP, PAP, CO, CI - Last Documented Arterial Blood Pressure 95/42 - Exam GENERAL EXAM: 59-year-old white male sedated mechanically ventilated, not in distress. HEAD: Normocephalic and atraumatic EYES: Normal reaction of pupils, equal size. No nystagmus. Nonicteric sclera NOSE: Clear with pink turbinates. THROAT: No erythema or exudates. NECK: No masses, no JVD. CHEST: No chest wall deformity. Left chest implanted device LUNGS: Minimal crackles at the bases no rhonchi no wheezes ns noted. CVS: S1 and S2 normal with no audible murmur, irregular rhythm. No extra heart sounds ABDOMEN: No hepatosplenomegaly, active bowel sounds, no guarding or rigidity. SKIN: No rashes CENTRAL NERVOUS SYSTEM: Could not assess patient is sedated on propofol. EXTREMITIES: No clubbing edema or cyanosis - Labs CBC & Chem 7: 07/21/24 04:40 07/21/24 04:40 Labs: Abnormal Lab Results - Last 24 Hours (Table) 07/19/24 07/21/24 07/21/24 Range/Units 21:26 04:40 04:40 RBC 3.71 L (4.30-5.90) m/uL Hgb 11.6 L (13.0-17.5) gm/dL Hct 36.7 L (39.0-53.0) % Plt Count 102 L (150-450) k/uL Lymphocytes # 0.6 L (1.0-4.8) k/uL APTT (22.0-30.0) sec ABG pO2 (83-108) mmHg ABG HCO3 (21-25) mmol/L ABG Total CO2 (19-24) mmol/L ABG O2 Saturation (94-97) % Hemoglobin (13.0-17.5) gm/dL Sodium 134 L (137-145) mmol/L Potassium 3.2 L (3.5-5.1) mmol/L POC Glucose (mg/dL) 126 H (70-110) mg/dL Magnesium 1.5 L (1.6-2.3) mg/dL 07/21/24 07/21/24 Range/Units 04:40 05:17 RBC (4.30-5.90) m/uL Hgb (13.0-17.5) gm/dL Hct (39.0-53.0) % Plt Count (150-450) k/uL Lymphocytes # (1.0-4.8) k/uL APTT 47.5 H (22.0-30.0) sec ABG pO2 217 H (83-108) mmHg ABG HCO3 26 H (21-25) mmol/L ABG Total CO2 27 H (19-24) mmol/L ABG O2 Saturation 100.0 H (94-97) % Hemoglobin 11.7 L (13.0-17.5) gm/dL Sodium (137-145) mmol/L Potassium (3.5-5.1) mmol/L POC Glucose (mg/dL) (70-110) mg/dL Magnesium (1.6-2.3) mg/dL Microbiology - Last 24 Hours (Table) 07/19/24 22:30 Gram Stain - Preliminary Sputum Sputum Culture - Preliminary Pseudomonas aeruginosa Assessment and Plan Assessment: Impression: Acute delirium tremens Suspect alcohol withdrawal seizures Acute hypoxemic respiratory failure, secondary to above, requiring intubation mechanical ventilator. Acute systolic congestive heart failure, ejection fraction 25 to 30%, Atrial fibrillation with rapid ventricular response, remains in A-fib, rate is better controlled Elevated troponins, rule out an non-ST elevation TN Severe hypokalemia, being replaced per protocol Hyperammonia, receiving lactulose Chronic obstructive pulmonary disease History of coronary artery disease with previous CABG History of diabetes mellitus History of hypertension History of hyperlipidemia Marijuana smoker Acute Pseudomonas aeruginosa pneumonia Recommendation: Continue ventilatory support Continue CIWA protocol Continue antibiotics, patient is on Zosyn for Pseudomonas in the sputum Continue bronchodilators Nutritional support/enteral feeding Continue GI DVT prophylaxis Continue cardiac meds and address abnormal electrolytes accordingly including low potassium and low magnesium Continue thiamine Continue lactulose, recheck ammonia level Today I plan to transition the patient to Precedex and discontinue propofol, and address if the patient is ready for weaning trials. At this point the patient is critically ill, will monitor in the ICU Will continue to follow Critical care time is over 30 minutes Time with Patient: Greater than 30
[2024-07-21 13:39] LABS: Magnesium 1.6 mg/dL (1.6-2.3); Potassium 3.3 mmol/L (3.5-5.1)
[2024-07-21] MEDS ORDERED: Potassium Replacement Protocol 1 EACH MISC MISCELLANE PRN (13:59)
[2024-07-21] MEDS ORDERED: Magnesium Replacement Protocol 1 EACH MISC MISCELLANE PRN (14:00)
--- NOTE | 2024-07-21 15:43 | P.PN ---
Subjective Progress Note Date: 07/21/24 No new complaints. Sputum growing pseudomonas, on zosyn. Still intubated. General: intubated, sedated HEENT: normocephalic, atraumatic, no tracheal deviation Respiratory: symmetric chest rise, no cyanosis, ventilator dependent CVS: perfusing all extremities, no distal gangrene, no pitting edema GI: soft, ND : no SPT, no CVAT, jones is present Neuro: sedated Hospital Course: 59-year-old male with history of alcohol dependence, atrial fibrillation, CAD status post CABG, HFrEF status post AICD, presenting with fall at home. Patient also encephalopathic, unsure if there was alcohol withdrawal seizure. Patient had respiratory failure in the ED and ended up being intubated and mechanically ventilated. On arrival patient was on room air but quickly started requiring nonrebreather, pulse 130, respiratory 25, blood pressure 154/92. WBC 3, hemoglobin 11.9, platelet 122, pH 7.39, pCO2 44, pO2 252, sodium 133, potassium of 2.8, creatinine 0.53, magnesium 1.4, lactate 2.5, ammonia 51, total bili 2.5, AST 35, ALT 11, urinalysis shows negative nitrites, negative leukocyte esterase, toxicology positive for benzos, marijuana, negative for alcohol, respiratory viral panel negative. Troponin elevated to 0.04. CT head and neck did not show any acute fractures, no other acute process. He also showed moderate emphysema. Chest x-ray independently interpreted, shows interstitial opacities. EKG independently interpreted shows atrial fibrillation. Pelvic x-ray did not show any acute fractures. Currently patient sedated on Versed and propofol, mechanically ventilated, on heparin drip and Cardizem drip, also on IV antibiotics. Assessment and Plan: Patient is critically ill, in medical ICU. Prognosis guarded. Active: Acute hypoxic respiratory failure Pseudomonal Pneumonia -Pulmonology note reviewed, continue mechanical ventilation -Wean as tolerated -Continue IV Zosyn 3.375 g every 8 hours, blood cultures, sputum cultures growing pseudomonas Alcohol withdrawal seizures Alcohol dependence with severe alcohol withdrawal -On propofol drip, Versed drip, wean as tolerated -IV Ativan per CIWA score once patient is more awake -Thiamine 100 mg daily -Continue normal saline at 100 cc an hour, judicious use of IV fluids given history of HFrEF NSTEMI, likely type II Atrial fibrillation with RVR HFrEF, not in exacerbation -Continue Cardizem drip, heparin drip, monitor for bleeding -Cardiology consulted -Echocardiogram showed LVEF 25 to 30% -Holding Jardiance and Entresto Hypovolemic hyponatremia -Continue normal saline IV Hypomagnesemia -Was given IV mag in the ED -Repeat mag level tomorrow Resolved: Hypokalemia Chronic: Liver disease? DVT ppx: Heparin drip Code status: Full code Anticipated discharge place: Pending clinical course Anticipated discharge time: Pending clinical course Objective - Vital Signs Vital signs: Vital Signs Temp 99.3 F 07/21/24 08:00 Pulse 78 07/21/24 15:36 Resp 20 07/21/24 15:00 BP 101/66 07/21/24 15:00 Pulse Ox 98 07/21/24 14:00 FiO2 40 07/21/24 15:32 Intake & Output 07/20/24 07/21/24 07/21/24 18:59 06:59 18:59 Intake Total 5917.376 1646.061 1372.102 Output Total 3015 635 1715 Balance -3958.372 1790.061 -342.898 Weight 75.3 kg 73 kg 73 kg Intake: Intake, IV Titration 8653.284 0208.061 1202.102 Amount Dexmedetomidine/0.9% NaCl 11.410 (Pmx) 400 mcg In Empty Bag 1 bag @ 0.2 MCG/KG/HR 3.969 mls/hr IV .Q24H [facility] Rx#:[id number] Magnesium Sulfate-D5w Pmx 200 100 1 gm In Dextrose/Water 1 100ml.bag @ 100 mls/hr IVPB Q1H JAYSHREE Rx#: [id number] Magnesium Sulfate-D5w Pmx 100 1 gm In Dextrose/Water 1 100ml.bag @ 100 mls/hr IVPB Q1H JAYSHREE Rx#: [id number] Midazolam HCl 50 mg In 45.817 Sodium Chloride 0.9% 40 ml @ 1 MG/HR 1 mls/hr IV .Q24H JAYSHREE Rx#:[id number] Piperacillin-Tazobactam 3 100 100 .375 gm In Sodium Chloride 0.9% 100 ml @ 25 mls/hr IVPB Q8H JAY[facility]REE Rx#: [id number] Piperacillin-Tazobactam 3 100 .375 gm In Sodium Chloride 0.9% 100 ml @ 25 mls/hr IVPB Q8HR JAY[facility] Rx# :[id number] Sodium Chloride 0.9% 1, 1200 1200 900 000 ml @ 100 mls/hr IV . Q10H [facility]AY[facility]REE Rx#:[id number] propofoL 1,000 mg In 44.291 169.061 90.692 Empty Bag 1 bag @ 15 MCG/ KG/MIN 7.144 mls/hr IV . Q14H JAY[facility]REE Rx#:[id number] Tube Feeding 140 140 Other 90 30 Output: Gastric Drainage 500 300 Urine 2515 335 1715 Other: Voiding Method Indwelling Catheter Indwelling Catheter Indwelling Catheter ABP, PAP, CO, CI - Last Documented Arterial Blood Pressure 108/49 - Labs CBC & Chem 7: 07/21/24 04:40 07/21/24 13:10 Labs: Abnormal Lab Results - Last 24 Hours (Table) 07/19/24 07/21/24 07/21/24 Range/Units 21:26 04:40 04:40 RBC 3.71 L (4.30-5.90) m/uL Hgb 11.6 L (13.0-17.5) gm/dL Hct 36.7 L (39.0-53.0) % Plt Count 102 L (150-450) k/uL Lymphocytes # 0.6 L (1.0-4.8) k/uL APTT (22.0-30.0) sec ABG pO2 (83-108) mmHg ABG HCO3 (21-25) mmol/L ABG Total CO2 (19-24) mmol/L ABG O2 Saturation (94-97) % Hemoglobin (13.0-17.5) gm/dL Sodium 134 L (137-145) mmol/L Potassium 3.2 L (3.5-5.1) mmol/L POC Glucose (mg/dL) 126 H (70-110) mg/dL Magnesium 1.5 L (1.6-2.3) mg/dL 07/21/24 07/21/24 07/21/24 Range/Units 04:40 05:17 13:10 RBC (4.30-5.90) m/uL Hgb (13.0-17.5) gm/dL Hct (39.0-53.0) % Plt Count (150-450) k/uL Lymphocytes # (1.0-4.8) k/uL APTT 47.5 H (22.0-30.0) sec ABG pO2 217 H (83-108) mmHg ABG HCO3 26 H (21-25) mmol/L ABG Total CO2 27 H (19-24) mmol/L ABG O2 Saturation 100.0 H (94-97) % Hemoglobin 11.7 L (13.0-17.5) gm/dL Sodium (137-145) mmol/L Potassium 3.3 L (3.5-5.1) mmol/L POC Glucose (mg/dL) (70-110) mg/dL Magnesium (1.6-2.3) mg/dL Microbiology - Last 24 Hours (Table) 07/19/24 22:30 Gram Stain - Preliminary Sputum Sputum Culture - Preliminary Pseudomonas aeruginosa
[2024-07-21 17:51] LABS: Glucose,Whole Blood 100 mg/dL (70-110)
[2024-07-21 19:05] LABS: Potassium 3.7 mmol/L (3.5-5.1)
[2024-07-22 00:07] LABS: Glucose,Whole Blood 97 mg/dL (70-110)
[2024-07-22 05:08] LABS: ABG Base Excess 4.2 mmol/L; ABG HCO3 29 mmol/L (21-25); ABG Oxygen Saturation 98.2 % (94-97); ABG PCO2 44 mmHg (35-45); ABG PH 7.43 (7.35-7.45); ABG PO2 99 mmHg (83-108); ABG TCO2 31 mmol/L (19-24)
[2024-07-22 05:09] LABS: Glucose,Whole Blood 103 mg/dL (70-110)
[2024-07-22 05:27] LABS: Basophils % (A) 1 %; Eosinophils # (A) 0.1 k/uL (0-0.7); Eosinophils % (A) 1 %; HCT 34.8 % (39.0-53.0); HGB 11.1 gm/dL (13.0-17.5); Hypochromasia Moderate; Lymphocytes # (A) 0.7 k/uL (1.0-4.8); Lymphocytes % (A) 16 %; MCH 31.5 pg (25.0-35.0); MCHC 31.9 g/dL (31.0-37.0); MCV 98.9 fL (80.0-100.0); Mean Platelet Volume 8.1; Monocytes # (A) 0.2 k/uL (0-1.0); Monocytes % (A) 5 %; Neutrophils # (A) 3.4 k/uL (1.3-7.7); Neutrophils % (A) 74 %; Platelet Count 115 k/uL (150-450); RBC 3.52 m/uL (4.30-5.90); RDW 15.1 % (11.5-15.5); WBC 4.5 k/uL (3.8-10.6)
[2024-07-22 05:37] LABS: African American GFR (CKD) >90 (>60 ml/min/1.73 sqM); Anion Gap 2 mmol/L; Blood Urea Nitrogen 11 mg/dL (9-20); Calcium 8.5 mg/dL (8.4-10.2); Carbon Dioxide 30 mmol/L (22-30); Chloride 106 mmol/L (98-107); Glucose 100 mg/dL (74-99); Magnesium 1.7 mg/dL (1.6-2.3); Non-African American GFR(CKD) >90 (>60 ml/min/1.73 sqM); Potassium 3.9 mmol/L (3.5-5.1); Sodium 138 mmol/L (137-145)
[2024-07-22 06:33] LABS: Glucose,Whole Blood 118 mg/dL (70-110)
--- NOTE | 2024-07-22 07:53 | XR ---
EXAMINATION TYPE: XR chest 1V portable DATE OF EXAM: 07/22/2024 COMPARISON: 07/21/2024 INDICATION: Tube placement TECHNIQUE: Single frontal view of the chest is obtained. FINDINGS: The heart size is enlarged. The pulmonary vasculature is normal. Mild infiltrates at the right lung base. There is opacification of the retrocardiac region. Small eff usion may be present on the left. Endotracheal tube tip is above the ozzie. Nasogastric tube transverses the thorax pacemaker overlies the left chest. Metallic foreign bodies overlying right shoulder. IMPRESSION: 1. Cardiomegaly. 2. Bibasilar infiltrates. Small left pleural effusion may be present. Continued follow-up recommended [facility], Workstation: [facility], 07/22/2024 7:51 AM
[2024-07-22] MEDS: METOPROLOL TARTRATE 25 MG TAB PO SCH (09:52)
[2024-07-22] MEDS: POTASSIUM BICARBONATE/CIT AC 20 MEQ TABLET.EFF NG-TUBE SCH ×2 (09:53→19:57)
--- NOTE | 2024-07-22 11:04 | P.PN ---
Subjective Progress Note Date: 07/22/24 HISTORY OF PRESENTING ILLNESS Patient is a pleasant 59-year-old male with history of CAD status post CABG approximately 25 years ago, ischemic cardiomyopathy status post AICD, ventricular tachycardia status post VT ablation, paroxysmal atrial fibrillation, hypertension, alcohol abuse, tobacco abuse, PAD with prior bifemoral bypass in 2012, previous carotid endarterectomy March 2020 as well as previous left atrial appendage thrombus which improved after anticoagulation. He normally follows with Dr. Kruse from [facility]. He has had a number of admissions at [facility] previous workup in February 2022 showing EF 40%. Patient currently intubated and sedated and history is supplied by chart. Per report, patient presented with a fall at home and concern of a seizure. Apparently patient has been attempting to withdraw from alcohol and concern of patient withdrawing and having a seizure. Patient was intubated and sedated in the emergency department with concern of alcohol seizure withdrawals and received Ativan and emergency department and on Versed drip. Cardiology was con sult and secondary A. fib with RVR on presentation however heart rates much improved after sedation. He does AICD. He remains on ventilator with FiO2 60%. Echocardiogram performed which shows EF 25-30%, mild aortic regurgitation, mild mitral regurgitation and RVSP of 66. He received 1 dose of IV Lasix however also has been receiving IV fluids at 75 mL per hour. He has adequate urine output. He was initially having significant ventricular ectopy however this improved with replacing electrolytes and sedation. On presentation sodium 133, potassium 2.8, lactic acid 2.5, creatinine 0.5. He does have pancytopenia with white blood cell count 3.0, hemoglobin 11.9, platelets 122. Troponin 0.12, 0.20, 0.20. EKG shows normal A. fib with LVH with strain with ST depressions V5 through V6 with poor R-wave progression, complete left bundle branch block. 07/21 patient seen and examined. Patient remains intubated on 40% FiO2. Repeat blood work shows stable creatinine and sodium 134. He is receiving IV fluids at 100 mL per hour. Remains on heparin drip. Remains in A. fib with some ectopy cvr. Blood pressure somewhat increased up into the 140s to 150s systolic. 07/22 Patient seen and examined in the ICU. Patient failed to wean off the ventilator yesterday and developed hypotension and restlessness. Patient is currently in a controlled atrial fibrillation. He has been started on tube feedings and urine output has been improving. He is currently on IV fluids at 100 cc/h. Blood pressure 124/52, heart rate 76, pulse ox 99%. Repeat blood work reveals hemoglobin 11.1. Electrolytes are normal, creatinine 0.66. Repeat chest x-ray reveals cardiomegaly, bibasilar infiltrates, small left pleural effusion may be present. PHYSICAL EXAMINATION Vital signs reviewed. CONSTITUTIONAL: No apparent distress, intubated and sedated HEENT: Head is normocephalic. Pupils are equal, round. Sclerae anicteric. Mucous membranes of the mouth are moist. No JVD. No carotid bruit. CHEST EXAMINATION: Lungs are clear to auscultation. No chest wall tenderness is noted on palpation or with deep breathing. HEART EXAMINATION: Regular rate and rhythm. S1, S2 heard. No murmurs, gallops or rub. ABDOMEN: Soft, nontender. Positive bowel sounds. EXTREMITIES: 2+ peripheral pulses, no lower extremity edema and no calf tenderness. NEUROLOGIC EXAMINATION: Patient is sedated and intubated ASSESSMENT Persistent A. fib with initial RVR, improved and in a controlled rate Cardiomyopathy likely component of alcohol-induced cardiomyopathy as well as ischemic CAD with prior CABG Non-STEMI likely type II related to seizure Status post AICD Alcohol abuse Seizures Hypokalemia Hyponatremia PLAN Patient with mildly elevated troponins however appears likely type II mechanism related to seizure, and alcohol withdrawals. Toprol will be changed to Lopressor so that it can be crushed for feeding tube. Regarding Entresto, due to patient's hypotension during weaning process, we will hold restarting this until after extubation most likely Monitor fluid status however currently does not appear volume overloaded and minimal output urine 30 mL per hour. Decrease IV fluids to 75 cc/h since he is also on tube feeds. Continue patient on Eliquis Continue with supportive care. Alcohol cessation. Prognosis guarded. Nurse practitioner note has been reviewed, I agree with documented findings and plan of care. Patient was seen and examined. Objective - Vital Signs Vital signs: Vital Signs Temp 99.4 F 07/22/24 08:00 Pulse 78 07/22/24 08:42 Resp 20 07/22/24 08:00 BP 102/68 07/22/24 08:00 Pulse Ox 100 07/22/24 08:00 FiO2 40 07/22/24 08:18 Intake & Output 07/21/24 07/22/24 07/22/24 18:59 06:59 18:59 Intake Total 3934.537 4678.762 310 Output Total 1890 410 160 Balance 32.102 1611.762 150 Weight 73 kg 75.2 kg Intake: IV 1100 200 Sodium Chloride 0.9% 1, 1100 200 000 ml @ 100 mls/hr IV . Q10H JAY[facility]REE Rx#:[id number] Intake, IV Titration 1602.102 381.762 Amount Dexmedetomidine/0.9% NaCl 11.410 (Pmx) 400 mcg In Empty Bag 1 bag @ 0.2 MCG/KG/HR 3.969 mls/hr IV .Q24H JAY[facility]REE Rx#:[id number] Magnesium Sulfate-D5w Pmx 100 1 gm In Dextrose/Water 1 100ml.bag @ 100 mls/hr IVPB Q1H JAYSHREE Rx#: [id number] Magnesium Sulfate-D5w Pmx 200 100 1 gm In Dextrose/Water 1 100ml.bag @ 100 mls/hr IVPB Q1H JAYSHREE Rx#: [id number] Sodium Chloride 0.9% 1, 1200 100 000 ml @ 100 mls/hr IV . Q10H JAYSHREE Rx#:[id number] propofoL 1,000 mg In 90.692 181.762 Empty Bag 1 bag @ 15 MCG/ KG/MIN 7.144 mls/hr IV . Q14H JAYSHREE Rx#:[id number] Tube Feeding 290 450 80 Other 30 90 30 Output: Urine 1890 410 160 Other: Voiding Method Indwelling Catheter Indwelling Catheter ABP, PAP, CO, CI - Last Documented Arterial Blood Pressure 129/58 - Labs CBC & Chem 7: 07/22/24 05:10 07/22/24 05:10 Labs: Abnormal Lab Results - Last 24 Hours (Table) 07/21/24 07/22/24 07/22/24 Range/Units 13:10 00:45 05:10 RBC 3.52 L (4.30-5.90) m/uL Hgb 11.1 L (13.0-17.5) gm/dL Hct 34.8 L (39.0-53.0) % Plt Count 115 L (150-450) k/uL Lymphocytes # 0.7 L (1.0-4.8) k/uL APTT (22.0-30.0) sec ABG HCO3 29 H (21-25) mmol/L ABG Total CO2 31 H (19-24) mmol/L ABG O2 Saturation 98.2 H (94-97) % Hemoglobin 11.3 L (13.0-17.5) gm/dL Potassium 3.3 L (3.5-5.1) mmol/L Glucose (74-99) mg/dL POC Glucose (mg/dL) (70-110) mg/dL 07/22/24 07/22/24 07/22/24 Range/Units 05:10 05:10 06:32 RBC (4.30-5.90) m/uL Hgb (13.0-17.5) gm/dL Hct (39.0-53.0) % Plt Count (150-450) k/uL Lymphocytes # (1.0-4.8) k/uL APTT 30.6 H (22.0-30.0) sec ABG HCO3 (21-25) mmol/L ABG Total CO2 (19-24) mmol/L ABG O2 Saturation (94-97) % Hemoglobin (13.0-17.5) gm/dL Potassium (3.5-5.1) mmol/L Glucose 100 H (74-99) mg/dL POC Glucose (mg/dL) 118 H (70-110) mg/dL Microbiology - Last 24 Hours (Table) 07/20/24 12:25 Blood Culture - Preliminary Blood 07/19/24 22:30 Gram Stain - Preliminary Sputum Sputum Culture - Preliminary Pseudomonas aeruginosa
[2024-07-22 11:45] LABS: Glucose,Whole Blood 99 mg/dL (70-110)
--- NOTE | 2024-07-22 12:30 | P.PN ---
Subjective Progress Note Date: 07/22/24 Principal diagnosis: Acute delirium tremens Patient is a 59-year-old male with past medical history significant for alcoholism, atrial fibrillation, coronary artery disease with previous CABG, Heart failure, AICD/pacemaker, diabetes mellitus, hypertension, liver disease, COPD. Patient is currently intubated, therefore, unable to provide any information for HPI. Apparently, patient presented to the emergency department yesterday evening. He had a fall at home. Reportedly did not remember his fall. Of note, patient is an alcoholic, he was recently trying to cut back on his drinking. Last reported drink was approximately 24 hours prior. While in the emergency department, patient had [address] episodes of [address] activity[address] CT of the brain and C-spine did not show any acute intracranial hemorrhage, no mass effect or midline shift. No C-spine fractures or subluxation. He received a total of 6 mg of Ativan, and also was loaded with Keppra. Also, received a dose of Jaspal dol for agitation. He was admitted to the intensive care unit with alcohol withdrawal delirium tremens and suspected alcohol withdrawal seizures. He was also placed on Precedex which was up to 1 mg/kg/h. Despite this, he was agitated and trying to get out of bed. There is concerned that the patient may accidentally himself. Patient ended up requiring intubation for airway protection by PROGRAM WRITER. Postintubation chest x-ray demonstrating the endotracheal tube in appropriate position above the ozzie. There is an orogastric tube coursing into the gastric fundus. Cardiomegaly noted. Possible pulmonary vascular congestion. Initial ABG was drawn postintubation. PaO2 252, pCO2 44, pH of 7.39. This was done on initial ventilator settings including assist- control, respiratory rate 20, tidal volume 450, FiO2 100%, and PEEP of 5. FiO2 was dropped to 60%. On my evaluation, patient appears synchronous with mechanical ventilator. He is on Versed which is infusing at 1 mg/h. No further seizure-like activity noted by RN. Peak pressures are elevated at 32. Static airway pressure 16. There is some airway resistance. Some minimal wheezing and rhonchi on auscultation. There is some thick yellow to brown-colored secretions. Sputum was sent for culture. No witnessed aspiration events. Earlier, patient was reportedly in atrial fibrillation with rapid ventricular response. He still remains in atrial fibrillation, however, rate is better controlled. Not currently on any antiarrhythmics. Blood pressure remained stable, not requiring vasopressors. He did require a 1 L fluid bolus postintubation. Blood pressure now normotensive. Patient will be started on heparin drip per protocol. Also has some elevated serial troponins at 0.129 and 0.204 respectively. EKG: Atrial fibrillation, controlled ventricular response, 95 bpm, T wave inversions in the lateral leads. CBC: WBC count 3, hemoglobin 11.9, hematocrit 36.7, platelets 122. Baseline aPTT 28.5. CMP: Sodium 133, potassium 2.8, chloride 99, serum bicarb 30, BUN 8, creatinine 0.53, glucose 109. Lactic 2.5. LFTs unremarkable. Ammonia was high at 51. Patient was started on lactulose. Serum alcohol less than 10 on arrival. Negative for influenza, RSV, COVID. Patient's potassium is being replaced per protocol. Patient was evaluated today on 07/21/2024, remains intubated mechanically ventilated, remains in the ICU, on assist-control rate of 20 tidal volume 450 FiO2 40% and PEEP of 5 ABG earlier on 60% showed a pO2 of 217 pCO2 40 pH of 7.41 hence FiO2 was cut down to 40%. Patient remains on propofol, sedated, seems to be very calm, and his agitation seems to be fairly well-controlled with propofol. Remains on IV fluid 0.9 normal saline at 100 cc/h remains on Zosyn and he received Lasix earlier today x 1 dose with excellent urine output. Patient had no witnessed seizures while in the ICU, but apparently had seizures prior to presentation to the ICU. Chest x-ray shows airspace opacities in the right lung base with somewhat diffuse pulmonary edema noted and he did receive Lasix earlier today. WBC count today is 4.5 hemoglobin 11.6. Basic metabolic profile is normal except for low potassium of 3.2, magnesium is 1.5 both being corrected accordingly. Sputum culture on this patient is showing Pseudomonas, patient is on Zosyn since admission Seen today on 07/22/2024, remains in the ICU, intubated and mechanically ventilated, sedated on propofol at 30 mcg/kg/min. No major events overnight, yesterday the patient became agitated when he went off propofol, he went hypotensive when he was placed on Precedex, hence could not wean the patient yesterday because of this. Today he is on assist-control rate of 20 tidal volume 450 FiO2 40% and PEEP of 5 ABG showed a pO2 of 99 pCO2 44 pH of 7.43, hence no changes were made in his ventilator settings. Patient is intermittently on diuretics he is also on antibiotics for presumptive aspiration pneumonia. Chest x-ray continues to show evidence of bilateral airspace disease, consistent with pulmonary edema and possibly some component of pneum onia related to aspiration.WBC count is 4.5 hemoglobin 11.1. Basic metabolic profile is normal renal profile is normal magnesium is 1.7 today Objective - Vital Signs Vital signs: Vital Signs Temp 99.4 F 07/22/24 08:00 Pulse 63 07/22/24 12:00 Resp 21 07/22/24 12:00 BP 115/76 07/22/24 12:00 Pulse Ox 98 07/22/24 12:00 FiO2 40 07/22/24 12:12 Intake & Output 07/21/24 07/22/24 07/22/24 18:59 06:59 18:59 Intake Total 5614.657 1865.762 996.493 Output Total 1890 410 335 Balance 32.102 1611.762 661.493 Weight 73 kg 75.2 kg Intake: IV 1100 600 Sodium Chloride 0.9% 1, 1100 600 000 ml @ 100 mls/hr IV . Q10H [facility] Rx#:[id number] Intake, IV Titration 1602.102 381.762 90.493 Amount Dexmedetomidine/0.9% NaCl 11.410 (Pmx) 400 mcg In Empty Bag 1 bag @ 0.2 MCG/KG/HR 3.969 mls/hr IV .Q24H [facility] Rx#:[id number] Magnesium Sulfate-D5w Pmx 100 1 gm In Dextrose/Water 1 100ml.bag @ 100 mls/hr IVPB Q1H [facility] Rx#: [id number] Magnesium Sulfate-D5w Pmx 200 100 1 gm In Dextrose/Water 1 100ml.bag @ 100 mls/hr IVPB Q1H [facility] Rx#: [id number] Sodium Chloride 0.9% 1, 1200 100 000 ml @ 100 mls/hr IV . Q10H [facility] Rx#:[id number] propofoL 1,000 mg In 90.692 181.762 90.493 Empty Bag 1 bag @ 15 MCG/ KG/MIN 7.144 mls/hr IV . Q14H [facility] Rx#:[id number] Tube Feeding 290 450 276 Other 30 90 30 Output: Urine 1890 410 335 Other: Voiding Method Indwelling Catheter Indwelling Catheter # Bowel Movements 1 ABP, PAP, CO, CI - Last Documented Arterial Blood Pressure 121/48 - Exam GENERAL EXAM: 59-year-old white male sedated mechanically ventilated, not in distress. HEAD: Normocephalic and atraumatic EYES: Normal reaction of pupils, equal size. No nystagmus. Nonicteric sclera NOSE: Clear with pink turbinates. THROAT: No erythema or exudates. NECK: No masses, no JVD. CHEST: No chest wall deformity. Left chest implanted device LUNGS: Minimal crackles at the bases no rhonchi no wheezes ns noted. CVS: S1 and S2 normal with no audible murmur, irregular rhythm. No extra heart sounds ABDOMEN: No hepatosplenomegaly, active bowel sounds, no guarding or rigidity. SKIN: No rashes CENTRAL NERVOUS SYSTEM: Could not assess patient is sedated on propofol. EXTREMITIES: No clubbing edema or cyanosis - Labs CBC & Chem 7: 07/22/24 05:10 07/22/24 05:10 Labs: Abnormal Lab Results - Last 24 Hours (Table) 07/21/24 07/22/24 07/22/24 Range/Units 13:10 00:45 05:10 RBC 3.52 L (4.30-5.90) m/uL Hgb 11.1 L (13.0-17.5) gm/dL Hct 34.8 L (39.0-53.0) % Plt Count 115 L (150-450) k/uL Lymphocytes # 0.7 L (1.0-4.8) k/uL APTT (22.0-30.0) sec ABG HCO3 29 H (21-25) mmol/L ABG Total CO2 31 H (19-24) mmol/L ABG O2 Saturation 98.2 H (94-97) % Hemoglobin 11.3 L (13.0-17.5) gm/dL Potassium 3.3 L (3.5-5.1) mmol/L Glucose (74-99) mg/dL POC Glucose (mg/dL) (70-110) mg/dL 07/22/24 07/22/2407/22/24 Range/Units 05:10 05:10 06:32 RBC (4.30-5.90) m/uL Hgb (13.0-17.5) gm/dL Hct (39.0-53.0) % Plt Count (150-450) k/uL Lymphocytes # (1.0-4.8) k/uL APTT 30.6 H (22.0-30.0) sec ABG HCO3 (21-25) mmol/L ABG Total CO2 (19-24) mmol/L ABG O2 Saturation (94-97) % Hemoglobin (13.0-17.5) gm/dL Potassium (3.5-5.1) mmol/L Glucose 100 H (74-99) mg/dL POC Glucose (mg/dL) 118 H (70-110) mg/dL Microbiology - Last 24 Hours (Table) 07/19/24 22:30 Gram Stain - Final Sputum Sputum Culture - Final Pseudomonas aeruginosa 07/20/24 12:25 Blood Culture - Preliminary Blood Assessment and Plan Assessment: Impression: Acute delirium tremens, requiring intubation mechanical ventilation Suspect alcohol withdrawal seizures Acute hypoxemic respiratory failure, secondary to above, requiring intubation mechanical ventilator. Acute systolic congestive heart failure, ejection fraction 25 to 30%, Atrial fibrillation with rapid ventricular response, remains in A-fib, rate is better controlled Elevated troponins, rule out an non-ST elevation LA Severe hypokalemia, being replaced per protocol Hyperammonia, receiving lactulose Chronic obstructive pulmonary disease History of coronary artery disease with previous CABG History of diabetes mellitus History of hypertension History of hyperlipidemia Marijuana smoker Acute Pseudomonas aeruginosa pneumonia Recommendation: Continue ventilatory support Continue CIWA protocol Continue nutritional support/enteral feeding Continue antibiotics, patient is on Zosyn for Pseudomonas in the sputum Continue bronchodilators Continue GI DVT prophylaxis Continue diuretics Continue thiamine Patient will be given today another trial of weaning however would like to cut down the propofol to minimal may or may not use Precedex again if the patient could not tolerate Precedex, could be placed on the CIWA protocol with Ativan intermittently as needed and as per protocol Will continue to follow Critical care time is over 30 minutes Time with Patient: Greater than 30
[2024-07-22 13:17] LABS: ABG Base Excess 1.9 mmol/L; ABG HCO3 27 mmol/L (21-25); ABG Oxygen Saturation 98.7 % (94-97); ABG PCO2 44 mmHg (35-45); ABG PO2 110 mmHg (83-108); ABG TCO2 29 mmol/L (19-24)
[2024-07-22 13:19] LABS: Allen Test Performed? no
[2024-07-22] MEDS: FUROSEMIDE 10 MG/ML 2 ML VIAL IV STA (13:25)
--- NOTE | 2024-07-22 16:54 | P.PN ---
Subjective Progress Note Date: 07/22/24 No new complaints. Sputum growing pseudomonas, on zosyn. Still intubated. General: intubated, sedated HEENT: normocephalic, atraumatic, no tracheal deviation Respiratory: symmetric chest rise, no cyanosis, ventilator dependent CVS: perfusing all extremities, no distal gangrene, no pitting edema GI: soft, ND : no SPT, no CVAT, jones is present Neuro: sedated Hospital Course: 59-year-old male with history of alcohol dependence, atrial fibrillation, CAD status post CABG, HFrEF status post AICD, presenting with fall at home. Patient also encephalopathic, unsure if there was alcohol withdrawal seizure. Patient had respiratory failure in the ED and ended up being intubated and mechanically ventilated. On arrival patient was on room air but quickly started requiring nonrebreather, pulse 130, respiratory 25, blood pressure 154/92. WBC 3, hemoglobin 11.9, platelet 122, pH 7.39, pCO2 44, pO2 252, sodium 133, potassium of 2.8, creatinine 0.53, magnesium 1.4, lactate 2.5, ammonia 51, total bili 2.5, AST 35, ALT 11, urinalysis shows negative nitrites, negative leukocyte esterase, toxicology positive for benzos, marijuana, negative for alcohol, respiratory viral panel negative. Troponin elevated to 0.04. CT head and neck did not show any acute fractures, no other acute process. He also showed moderate emphysema. Chest x-ray independently interpreted, shows interstitial opacities. EKG independently interpreted shows atrial fibrillation. Pelvic x-ray did not show any acute fractures. Currently patient sedated on Versed and propofol, mechanically ventilated, on heparin drip and Cardizem drip, also on IV antibiotics. Assessment and Plan: Patient is critically ill, in medical ICU. Prognosis guarded. Active: Acute hypoxic respiratory failure Pseudomonal Pneumonia -Pulmonology note reviewed, continue mechanical ventilation -Wean as tolerated -Continue IV Zosyn 3.375 g every 8 hours, blood cultures, sputum cultures growing pseudomonas Alcohol withdrawal seizures Alcohol dependence with severe alcohol withdrawal -On propofol drip, Versed drip, wean as tolerated -IV Ativan per CIWA score once patient is more awake -Thiamine 100 mg daily -Continue normal saline at 100 cc an hour, judicious use of IV fluids given history of HFrEF NSTEMI, likely type II Atrial fibrillation with RVR HFrEF, not in exacerbation -Continue Cardizem drip, heparin drip, monitor for bleeding -Cardiology consulted -Echocardiogram showed LVEF 25 to 30% -Holding Jardiance and Entresto Hypovolemic hyponatremia -Continue normal saline IV Hypomagnesemia -Was given IV mag in the ED -Repeat mag level tomorrow Resolved: Hypokalemia Chronic: Liver disease? DVT ppx: Heparin drip Code status: Full code Anticipated discharge place: Pending clinical course Anticipated discharge time: Pending clinical course Objective - Vital Signs Vital signs: Vital Signs Temp 99.4 F 07/22/24 08:00 Pulse 88 07/22/24 16:00 Resp 22 07/22/24 16:00 BP 115/75 07/22/24 16:00 Pulse Ox 99 07/22/24 16:00 FiO2 40 07/22/24 12:40 Intake & Output 07/21/24 07/22/24 07/22/24 18:59 06:59 18:59 Intake Total 3688.371 1487.762 1296.810 Output Total 7825 148 1297 Balance 32.102 1611.762 -8.190 Weight 73 kg 75.2 kg Intake: IV 1100 900 Sodium Chloride 0.9% 1, 1100 900 000 ml @ 100 mls/hr IV . Q10H [facility] Rx#:[id number] Intake, IV Titration 1602.102 381.762 90.810 Amount Dexmedetomidine/0.9% NaCl 11.410 (Pmx) 400 mcg In Empty Bag 1 bag @ 0.2 MCG/KG/HR 3.969 mls/hr IV .Q24H [facility] Rx#:[id number] Magnesium Sulfate-D5w Pmx 100 1 gm In Dextrose/Water 1 100ml.bag @ 100 mls/hr IVPB Q1H [facility] Rx#: [id number] Magnesium Sulfate-D5w Pmx 200 100 1 gm In Dextrose/Water 1 100ml.bag @ 100 mls/hr IVPB Q1H [facility] Rx#: [id number] Sodium Chloride 0.9% 1, 1200 100 000 ml @ 100 mls/hr IV . Q10H [facility] Rx#:[id number] propofoL 1,000 mg In 90.692 181.762 90.810 Empty Bag 1 bag @ 15 MCG/ KG/MIN 7.144 mls/hr IV . Q14H [facility] Rx#:[id number] Tube Feeding 290 450 276 Other 30 90 30 Output: Urine 9333 038 9351 Other: Voiding Method Indwelling Catheter Indwelling Catheter # Bowel Movements 1 ABP, PAP, CO, CI - Last Documented Arterial Blood Pressure 131/59 - Labs CBC & Chem 7: 07/22/24 05:10 07/22/24 05:10 Labs: Abnormal Lab Results - Last 24 Hours (Table) 07/22/24 07/22/24 07/22/24 Range/Units 00:45 05:10 05:10 RBC 3.52 L (4.30-5.90) m/uL Hgb 11.1 L (13.0-17.5) gm/dL Hct 34.8 L (39.0-53.0) % Plt Count 115 L (150-450) k/uL Lymphocytes # 0.7 L (1.0-4.8) k/uL APTT (22.0-30.0) sec ABG pO2 (83-108) mmHg ABG HCO3 29 H (21-25) mmol/L ABG Total CO2 31 H (19-24) mmol/L ABG O2 Saturation 98.2 H (94-97) % Hemoglobin 11.3 L (13.0-17.5) gm/dL Glucose 100 H (74-99) mg/dL POC Glucose (mg/dL) (70-110) mg/dL 07/22/24 07/22/24 07/22/24 Range/Units 05:10 06:32 13:15 RBC (4.30-5.90) m/uL Hgb (13.0-17.5) gm/dL Hct (39.0-53.0) % Plt Count (150-450) k/uL Lymphocytes # (1.0-4.8) k/uL APTT 30.6 H (22.0-30.0) sec ABG pO2 110 H (83-108) mmHg ABG HCO3 27 H (21-25) mmol/L ABG Total CO2 29 H (19-24) mmol/L ABG O2 Saturation 98.7 H (94-97) % Hemoglobin 11.7 L (13.0-17.5) gm/dL Glucose (74-99) mg/dL POC Glucose (mg/dL) 118 H (70-110) mg/dL Microbiology - Last 24 Hours (Table) 07/19/24 22:30 Gram Stain - Final Sputum Sputum Culture - Final Pseudomonas aeruginosa 07/20/24 12:25 Blood Culture - Preliminary Blood
[2024-07-22 18:09] LABS: Glucose,Whole Blood 183 mg/dL (70-110)
[2024-07-22] MEDS ORDERED: DEXTROSE 50% SYRINGE 50 ML IVP PRN ×2 (19:35)
[2024-07-22 19:50] LABS: Glucose,Whole Blood 85 mg/dL (70-110)
[2024-07-22] MEDS: MAGNESIUM SULFATE-D5W PMX 1 GM in DEXTROSE/WATER 1 100ML.BAG IVPB ONE (19:57)
[2024-07-22] MEDS: SODIUM CHLORIDE 0.9% 1,000 ML IV SCH (20:05)
[2024-07-22] MEDS: INSULIN ASPART (NovoLOG) 100 UNIT/ML VIAL SQ SCH (20:09)
[2024-07-22 20:41] LABS: Glucose,Whole Blood 118 mg/dL (70-110)
[2024-07-22] MEDS ORDERED: IPRATROPIUM-ALBUTEROL 3 ML NEB INHALATION PRN (20:56)
[2024-07-23 00:03] LABS: Glucose,Whole Blood 93 mg/dL (70-110)
[2024-07-23 04:46] LABS: Basophils % (A) 1 %; Eosinophils # (A) 0.1 k/uL (0-0.7); Eosinophils % (A) 1 %; HCT 34.7 % (39.0-53.0); HGB 11.3 gm/dL (13.0-17.5); Hypochromasia Slight; Lymphocytes # (A) 0.7 k/uL (1.0-4.8); Lymphocytes % (A) 15 %; MCH 32.2 pg (25.0-35.0); MCHC 32.7 g/dL (31.0-37.0); MCV 98.4 fL (80.0-100.0); Mean Platelet Volume 9.4; Monocytes # (A) 0.2 k/uL (0-1.0); Monocytes % (A) 5 %; Neutrophils # (A) 3.5 k/uL (1.3-7.7); Neutrophils % (A) 75 %; Platelet Count 117 k/uL (150-450); RBC 3.53 m/uL (4.30-5.90); RDW 15.2 % (11.5-15.5); WBC 4.7 k/uL (3.8-10.6)
[2024-07-23 05:14] LABS: African American GFR (CKD) >90 (>60 ml/min/1.73 sqM); Anion Gap 4 mmol/L; Blood Urea Nitrogen 12 mg/dL (9-20); Calcium 8.6 mg/dL (8.4-10.2); Carbon Dioxide 29 mmol/L (22-30); Chloride 103 mmol/L (98-107); Glucose 91 mg/dL (74-99); Magnesium 1.5 mg/dL (1.6-2.3); Non-African American GFR(CKD) >90 (>60 ml/min/1.73 sqM); Potassium 4.1 mmol/L (3.5-5.1); Sodium 136 mmol/L (137-145)
[2024-07-23] MEDS: MAGNESIUM SULFATE-D5W PMX 1 GM in DEXTROSE/WATER 1 100ML.BAG IVPB SCH (06:16)
[2024-07-23 06:28] LABS: Glucose,Whole Blood 82 mg/dL (70-110)
[2024-07-23] MEDS: IPRATROPIUM-ALBUTEROL 3 ML NEB INHALATION SCH (07:56)
--- NOTE | 2024-07-23 09:25 | XR ---
EXAMINATION TYPE: XR chest 1V portable DATE OF EXAM: 07/23/2024 COMPARISON: 07/22/2024 INDICATION: Postextubation TECHNIQUE: Single frontal view of the chest is obtained. FINDINGS: The heart size is enlarged. The pulmonary vasculature is prominent. Mild diffuse increased lung markings are present. Correlate for pulmonary edema. Right pleural effusi on is diminished. Pacemaker overlies left chest. Stable Right shoulder changes are seen. IMPRESSION: 1. Clinical correlation recommended for congestive heart failure. [facility], Workstation: [facility], 07/23/2024 9:23 AM
[2024-07-23] MEDS ORDERED: LORazepam 1 MG TAB PO PRN (09:34)
[2024-07-23] MEDS: FUROSEMIDE 10 MG/ML 4 ML VIAL IV SCH (09:41)
--- NOTE | 2024-07-23 09:46 | P.PN ---
Subjective Progress Note Date: 07/23/24 No new complaints. Sputum growing pseudomonas, on zosyn. Patient extubated, requesting resumption of his [place], Ativan as needed from home. Patient is considering leaving AMA today, but at this time has been amenable to staying after discussion with nursing Gen: In NAD, non-toxic HEENT: normocephalic, atraumatic, hearing acuity is intant, mucous membranes moist CVS: perfusing all extremities well, no pitting edema, Respiratory: symmetric chest expansion, no accessory muscle use, GI: soft, NTTP, ND, : no suprapubic tenderness, no CVA tenderness MSK/Derm: no rashes, cyanosis Neuro: CN II-XII intact, no motor weakness, Hospital Course: 59-year-old male with history of alcohol dependence, atrial fibrillation, CAD status post CABG, HFrEF status post AICD, presenting with fall at home. Patient also encephalopathic, unsure if there was alcohol withdrawal seizure. Patient had respiratory failure in the ED and ended up being intubated and mechanically ventilated. On arrival patient was on room air but quickly started requiring nonrebreather, pulse 130, respiratory 25, blood pressure 154/92. WBC 3, hemoglobin 11.9, platelet 122, pH 7.39, pCO2 44, pO2 252, sodium 133, potassium of 2.8, creatinine 0.53, magnesium 1.4, lactate 2.5, ammonia 51, total bili 2.5, AST 35, ALT 11, urinalysis shows negative nitrites, negative leukocyte esterase, toxicology positive for benzos, marijuana, negative for alcohol, respiratory viral panel negative. Troponin elevated to 0.04. CT head and neck did not show any acute fractures, no other acute process. He also showed moderate emphysema. Chest x-ray independently interpreted, shows interstitial opacities. EKG independently interpreted shows atrial fibrillation. Pelvic x-ray did not show any acute fractures. Currently patient sedated on Versed and propofol, mechanically ventilated, on heparin drip and Cardizem drip, also on IV ant ibiotics. Assessment and Plan: Active: Acute hypoxic respiratory failure Pseudomonal Pneumonia -Pulmonology note reviewed, continue mechanical ventilation -Wean as tolerated -Continue IV Zosyn 3.375 g every 8 hours, blood cultures NGTD, sputum cultures growing pseudomonas Alcohol withdrawal seizures Alcohol dependence with severe alcohol withdrawal -On propofol drip, Versed drip, wean as tolerated -IV Ativan per CIWA score once patient is more awake -Thiamine 100 mg daily -Reduce IVF to KVO, NSTEMI, likely type II Atrial fibrillation with RVR HFrEF, not in exacerbation -Metoprolol 25mg BID -Cardiology consulted -Echocardiogram showed LVEF 25 to 30% -Holding Jardiance -Entresto restarted -Lasix 40mg IV q12h Hypovolemic hyponatremia, resolved Hypomagnesemia -Mag replacement PRN -Repeat mag level tomorrow Resolved: Hypokalemia Chronic: Liver disease? DVT ppx: Apixaban Code status: Full code Anticipated discharge place: Pending clinical course Anticipated discharge time: Pending clinical course Objective - Vital Signs Vital signs: Vital Signs Temp 98.3 F 07/23/24 04:00 Pulse 87 07/23/24 09:00 Resp 16 07/23/24 09:00 BP 138/87 07/23/24 09:00 Pulse Ox 97 07/23/24 09:00 FiO2 40 07/22/24 12:40 Intake & Output 07/22/24 07/23/24 07/23/24 18:59 06:59 18:59 Intake Total 4149.803 8965 75 Output Total 1805 520 30 Balance -208.190 505 45 Weight 75.2 kg 74.7 kg Intake: IV 1200 925 75 Sodium Chloride 0.9% 1, 1200 100 000 ml @ 100 mls/hr IV . Q10H [facility] Rx#:[id number] Sodium Chloride 0.9% 1, 825 75 000 ml @ 75 mls/hr IV . [id number] [facility] Rx#:[id number] Intake, IV Titration 90.810 100 Amount Magnesium Sulfate-D5w Pmx 100 1 gm In Dextrose/Water 1 100ml.bag @ 100 mls/hr IVPB ONCE ONE Rx#: [id number] propofoL 1,000 mg In 90.810 Empty Bag 1 bag @ 15 MCG/ KG/MIN 7.144 mls/hr IV . Q14H [facility] Rx#:[id number] Tube Feeding 276 Other 30 Output: Urine 1805 520 30 Other: Voiding Method Indwelling Catheter Indwelling Catheter # Bowel Movements 1 1 ABP, PAP, CO, CI - Last Documented Arterial Blood Pressure 133/62 - Labs CBC & Chem 7: 07/23/24 03:53 07/23/24 03:53 Labs: Abnormal Lab Results - Last 24 Hours (Table) 07/22/24 07/22/24 07/22/24 Range/Units 13:15 17:47 18:07 RBC (4.30-5.90) m/uL Hgb (13.0-17.5) gm/dL Hct (39.0-53.0) % Plt Count (150-450) k/uL Lymphocytes # (1.0-4.8) k/uL ABG pO2 110 H (83-108) mmHg ABG HCO3 27 H (21-25) mmol/L ABG Total CO2 29 H (19-24) mmol/L ABG O2 Saturation 98.7 H (94-97) % Hemoglobin 11.7 L (13.0-17.5) gm/dL Sodium (137-145) mmol/L Potassium 3.4 L (3.5-5.1) mmol/L Creatinine (0.66-1.25) mg/dL POC Glucose (mg/dL) 183 H (70-110) mg/dL Magnesium (1.6-2.3) mg/dL 07/22/24 07/23/24 07/23/24 Range/Units 20:40 03:53 03:53 RBC 3.53 L (4.30-5.90) m/uL Hgb 11.3 L (13.0-17.5) gm/dL Hct 34.7 L (39.0-53.0) % Plt Count 117 L (150-450) k/uL Lymphocytes # 0.7 L (1.0-4.8) k/uL ABG pO2 (83-108) mmHg ABG HCO3 (21-25) mmol/L ABG Total CO2 (19-24) mmol/L ABG O2 Saturation (94-97) % Hemoglobin (13.0-17.5) gm/dL Sodium 136 L (137-145) mmol/L Potassium (3.5-5.1) mmol/L Creatinine 0.61 L (0.66-1.25) mg/dL POC Glucose (mg/dL) 118 H (70-110) mg/dL Magnesium 1.5 L (1.6-2.3) mg/dL Microbiology - Last 24 Hours (Table) 07/20/24 12:25 Blood Culture - Preliminary Blood 07/19/24 22:30 Gram Stain - Final Sputum Sputum Culture - Final Pseudomonas aeruginosa
[2024-07-23] MEDS: SACUBITRIL/VALSARTAN 24 MG-26 MG TABLET PO SCH (09:51)
[2024-07-23] MEDS: HYDROcodone/APAP 10-325MG 1 EACH TAB PO PRN (10:01)
--- NOTE | 2024-07-23 11:04 | P.PN ---
Subjective Progress Note Date: 07/23/24 HISTORY OF PRESENTING ILLNESS Patient is a pleasant 59-year-old male with history of CAD status post CABG approximately 25 years ago, ischemic cardiomyopathy status post AICD, ventricular tachycardia status post VT ablation, paroxysmal atrial fibrillation, hypertension, alcohol abuse, tobacco abuse, PAD with prior bifemoral bypass in 2012, previous carotid endarterectomy March 2020 as well as previous left atrial appendage thrombus which improved after anticoagulation. He normally follows with Dr. Kruse from [facility]. He has had a number of admissions at [facility] previous workup in February 2022 showing EF 40%. Patient currently intubated and sedated and history is supplied by chart. Per report, patient presented with a fall at home and concern of a seizure. Apparently patient has been attempting to withdraw from alcohol and concern of patient withdrawing and having a seizure. Patient was intubated and sedated in the emergency department with concern of alcohol seizure withdrawals and received Ativan and emergency department and on Versed drip. Cardiology was con sult and secondary A. fib with RVR on presentation however heart rates much improved after sedation. He does AICD. He remains on ventilator with FiO2 60%. Echocardiogram performed which shows EF 25-30%, mild aortic regurgitation, mild mitral regurgitation and RVSP of 66. He received 1 dose of IV Lasix however also has been receiving IV fluids at 75 mL per hour. He has adequate urine output. He was initially having significant ventricular ectopy however this improved with replacing electrolytes and sedation. On presentation sodium 133, potassium 2.8, lactic acid 2.5, creatinine 0.5. He does have pancytopenia with white blood cell count 3.0, hemoglobin 11.9, platelets 122. Troponin 0.12, 0.20, 0.20. EKG shows normal A. fib with LVH with strain with ST depressions V5 through V6 with poor R-wave progression, complete left bundle branch block. 07/21 patient seen and examined. Patient remains intubated on 40% FiO2. Repeat blood work shows stable creatinine and sodium 134. He is receiving IV fluids at 100 mL per hour. Remains on heparin drip. Remains in A. fib with some ectopy cvr. Blood pressure somewhat increased up into the 140s to 150s systolic. 07/22 Patient seen and examined in the ICU. Patient failed to wean off the ventilator yesterday and developed hypotension and restlessness. Patient is currently in a controlled atrial fibrillation. He has been started on tube feedings and urine output has been improving. He is currently on IV fluids at 100 cc/h. Blood pressure 124/52, heart rate 76, pulse ox 99%. Repeat blood work reveals hemoglobin 11.1. Electrolytes are normal, creatinine 0.66. Repeat chest x-ray reveals cardiomegaly, bibasilar infiltrates, small left pleural effusion may be present. 07/23 Patient seen and examined in the intensive care unit. Patient has been successfully extubated. He states he that he is feeling fine. He thinks he came into the hospital because he drank too much. Alcohol cessation discussed with the patient and he plans to quit. Blood pressure 121/72, heart rate 80, pulse ox 88% on 3 L nasal cannula. Repeat blood work reveals hemoglobin 11.3. Sodium 136, BUN 12 and creatinine 0.61. This morning, patient was started on IV Lasix by pulmonary medicine. PHYSICAL EXAMINATION Vital signs reviewed. CONSTITUTIONAL: No apparent distress HEENT: Head is normocephalic. Pupils are equal, round. Sclerae anicteric. Mucous membranes of the mouth are moist. No JVD. No carotid bruit. CHEST EXAMINATION: Lungs are clear to auscultation. No chest wall tenderness is noted on palpation or with deep breathing. HEART EXAMINATION: Regular rate and rhythm. S1, S2 heard. No murmurs, gallops or rub. ABDOMEN: Soft, nontender. Positive bowel sounds. EXTREMITIES: 2+ peripheral pulses, no lower extremity edema and no calf tenderness. NEUROLOGIC EXAMINATION: Patient is awake and alert ASSESSMENT Persistent A. fib with initial RVR, now controlled rate Cardiomyopathy likely component of alcohol-induced cardiomyopathy as well as ischemic CAD with prior CABG Non-STEMI likely type II related to seizure Status post AICD Alcohol abuse Seizures Hypokalemia Hyponatremia PLAN Patient with mildly elevated troponins however appears likely type II mechanism related to seizure, and alcohol withdrawals. Continue Eliquis, beta-glenda Patient is currently on IV Lasix 40 mg every 12 hours managed by pulmonary medicine Regarding Entresto, due to patient's hypotension during weaning process, we will hold restarting this until after extubation most likely Monitor fluid status, electrolytes and renal function Alcohol cessation. Nurse practitioner note has been reviewed, I agree with documented findings and plan of care. Patient was seen and examined. Objective - Vital Signs Vital signs: Vital Signs Temp 98.3 F 07/23/24 04:00 Pulse 80 07/23/24 07:00 Resp 13 07/23/24 07:00 BP 121/72 07/23/24 07:00 Pulse Ox 88 L 07/23/24 07:00 FiO2 40 07/22/24 12:40 Intake & Output 07/22/24 07/23/24 07/23/24 18:59 06:59 18:59 Intake Total 1580.109 4399 75 Output Total 1805 520 30 Balance -208.190 505 45 Weight 75.2 kg 74.7 kg Intake: IV 1200 925 75 Sodium Chloride 0.9% 1, 1200 100 000 ml @ 100 mls/hr IV . Q10H [facility] Rx#:[id number] Sodium Chloride 0.9% 1, 825 75 000 ml @ 75 mls/hr IV . [id number] [facility] Rx#:[id number] Intake, IV Titration 90.810 100 Amount Magnesium Sulfate-D5w Pmx 100 1 gm In Dextrose/Water 1 100ml.bag @ 100 mls/hr IVPB ONCE ONE Rx#: [id number] propofoL 1,000 mg In 90.810 Empty Bag 1 bag @ 15 MCG/ KG/MIN 7.144 mls/hr IV . Q14H [facility] Rx#:[id number] Tube Feeding 276 Other 30 Output: Urine 1805 520 30 Other: Voiding Method Indwelling Catheter Indwelling Catheter # Bowel Movements 1 1 ABP, PAP, CO, CI - Last Documented Arterial Blood Pressure 125/66 - Labs CBC & Chem 7: 07/23/24 03:53 07/23/24 03:53 Labs: Abnormal Lab Results - Last 24 Hours (Table) 07/22/24 07/22/24 07/22/24 Range/Units 13:15 17:47 18:07 RBC (4.30-5.90) m/uL Hgb (13.0-17.5) gm/dL Hct (39.0-53.0) % Plt Count (150-450) k/uL Lymphocytes # (1.0-4.8) k/uL ABG pO2 110 H (83-108) mmHg ABG HCO3 27 H (21-25) mmol/L ABG Total CO2 29 H (19-24) mmol/L ABG O2 Saturation 98.7 H (94-97) % Hemoglobin 11.7 L (13.0-17.5) gm/dL Sodium (137-145) mmol/L Potassium 3.4 L (3.5-5.1) mmol/L Creatinine (0.66-1.25) mg/dL POC Glucose (mg/dL) 183 H (70-110) mg/dL Magnesium (1.6-2.3) mg/dL 07/22/24 07/23/24 07/23/24 Range/Units 20:40 03:53 03:53 RBC 3.53 L (4.30-5.90) m/uL Hgb 11.3 L (13.0-17.5) gm/dL Hct 34.7 L (39.0-53.0) % Plt Count 117 L (150-450) k/uL Lymphocytes # 0.7 L (1.0-4.8) k/uL ABG pO2 (83-108) mmHg ABG HCO3 (21-25) mmol/L ABG Total CO2 (19-24) mmol/L ABG O2 Saturation (94-97) % Hemoglobin (13.0-17.5) gm/dL Sodium 136 L (137-145) mmol/L Potassium (3.5-5.1) mmol/L Creatinine 0.61 L (0.66-1.25) mg/dL POC Glucose (mg/dL) 118 H (70-110) mg/dL Magnesium 1.5 L (1.6-2.3) mg/dL Microbiology - Last 24 Hours (Table) 07/20/24 12:25 Blood Culture - Preliminary Blood 07/19/24 22:30 Gram Stain - Final Sputum Sputum Culture - Final Pseudomonas aeruginosa
[2024-07-23 11:57] LABS: Glucose,Whole Blood 105 mg/dL (70-110)
--- NOTE | 2024-07-23 13:07 | P.PN ---
Subjective Progress Note Date: 07/23/24 Principal diagnosis: Acute delirium tremens Patient is a 59-year-old male with past medical history significant for alcoholism, atrial fibrillation, coronary artery disease with previous CABG, Heart failure, AICD/pacemaker, diabetes mellitus, hypertension, liver disease, COPD. Patient is currently intubated, therefore, unable to provide any information for HPI. Apparently, patient presented to the emergency department yesterday evening. He had a fall at home. Reportedly did not remember his fall. Of note, patient is an alcoholic, he was recently trying to cut back on his drinking. Last reported drink was approximately 24 hours prior. While in the emergency department, patient had 2 episodes of [address] activity[address] CT of the brain and C-spine did not show any acute intracranial hemorrhage, no mass effect or midline shift. No C-spine fractures or subluxation. He received a total of 6 mg of Ativan, and also was loaded with Keppra. Also, received a dose of Jaspal dol for agitation. He was admitted to the intensive care unit with alcohol withdrawal delirium tremens and suspected alcohol withdrawal seizures. He was also placed on Precedex which was up to 1 mg/kg/h. Despite this, he was agitated and trying to get out of bed. There is concerned that the patient may accidentally himself. Patient ended up requiring intubation for airway protection by [facility]. Postintubation chest x-ray demonstrating the endotracheal tube in appropriate position above the ozzie. There is an orogastric tube coursing into the gastric fundus. Cardiomegaly noted. Possible pulmonary vascular congestion. Initial ABG was drawn postintubation. PaO2 252, pCO2 44, pH of 7.39. This was done on initial ventilator settings including assist- control, respiratory rate 20, tidal volume 450, FiO2 100%, and PEEP of 5. FiO2 was dropped to 60%. On my evaluation, patient appears synchronous with mechanical ventilator. He is on Versed which is infusing at 1 mg/h. No further seizure-like activity noted by RN. Peak pressures are elevated at 32. Static airway pressure 16. There is some airway resistance. Some minimal wheezing and rhonchi on auscultation. There is some thick yellow to brown-colored secretions. Sputum was sent for culture. No witnessed aspiration events. Earlier, patient was reportedly in atrial fibrillation with rapid ventricular response. He still remains in atrial fibrillation, however, rate is better controlled. Not currently on any antiarrhythmics. Blood pressure remained stable, not requiring vasopressors. He did require a 1 L fluid bolus postintubation. Blood pressure now normotensive. Patient will be started on heparin drip per protocol. Also has some elevated serial troponins at 0.129 and 0.204 respectively. EKG: Atrial fibrillation, controlled ventricular response, 95 bpm, T wave inversions in the lateral leads. CBC: WBC count 3, hemoglobin 11.9, hematocrit 36.7, platelets 122. Baseline aPTT 28.5. CMP: Sodium 133, potassium 2.8, chloride 99, serum bicarb 30, BUN 8, creatinine 0.53, glucose 109. Lactic 2.5. LFTs unremarkable. Ammonia was high at 51. Patient was started on lactulose. Serum alcohol less than 10 on arrival. Negative for influenza, RSV, COVID. Patient's potassium is being replaced per protocol. Patient was evaluated today on 07/21/2024, remains intubated mechanically ventilated, remains in the ICU, on assist-control rate of 20 tidal volume 450 FiO2 40% and PEEP of 5 ABG earlier on 60% showed a pO2 of 217 pCO2 40 pH of 7.41 hence FiO2 was cut down to 40%. Patient remains on propofol, sedated, seems to be very calm, and his agitation seems to be fairly well-controlled with propofol. Remains on IV fluid 0.9 normal saline at 100 cc/h remains on Zosyn and he received Lasix earlier today x 1 dose with excellent urine output. Patient had no witnessed seizures while in the ICU, but apparently had seizures prior to presentation to the ICU. Chest x-ray shows airspace opacities in the right lung base with somewhat diffuse pulmonary edema noted and he did receive Lasix earlier today. WBC count today is 4.5 hemoglobin 11.6. Basic metabolic profile is normal except for low potassium of 3.2, magnesium is 1.5 both being corrected accordingly. Sputum culture on this patient is showing Pseudomonas, patient is on Zosyn since admission Seen today on 07/22/2024, remains in the ICU, intubated and mechanically ventilated, sedated on propofol at 30 mcg/kg/min. No major events overnight, yesterday the patient became agitated when he went off propofol, he went hypotensive when he was placed on Precedex, hence could not wean the patient yesterday because of this. Today he is on assist-control rate of 20 tidal volume 450 FiO2 40% and PEEP of 5 ABG showed a pO2 of 99 pCO2 44 pH of 7.43, hence no changes were made in his ventilator settings. Patient is intermittently on diuretics he is also on antibiotics for presumptive aspiration pneumonia. Chest x-ray continues to show evidence of bilateral airspace disease, consistent with pulmonary edema and possibly some component of pneum onia related to aspiration.WBC count is 4.5 hemoglobin 11.1. Basic metabolic profile is normal renal profile is normal magnesium is 1.7 today Seen today on 07/23/2024, patient was extubated yesterday and he tolerated the extubation well. On 3 L nasal cannula IV fluid at KVO remains on Lasix every 12 hours remains on Zosyn for presumptive or possible aspiration. His sputum is growing Pseudomonas, patient is appropriately covered with Zosyn. His echocardiogram showed severe LV dysfunction with ejection fraction of 25 to 30%, chest x-ray today today shows evidence of pulmonary edema underlying pneumonia is not entirely ruled out. Patient wants to go home, and he is willing to go AMA. I suggested psychiatric evaluation, and if the patient is proven to be mentally competent, and he insists on going home AMA, will let him do to do so. Patient was made aware that he is quite ill, and I am not recommending discharge at this point yet. Count is 4.7 hemoglobin 11.3 basic metabolic profile is normal renal profile is normal Objective - Vital Signs Vital signs: Vital Signs Temp 97.7 F 07/23/24 09:00 Pulse 74 07/23/24 12:00 Resp 20 07/23/24 12:00 BP 103/63 07/23/24 12:00 Pulse Ox 97 07/23/24 12:00 FiO2 40 07/22/24 12:40 Intake & Output 07/22/24 07/23/24 07/23/24 18:59 06:59 18:59 Intake Total 5993.029 3390 962 Output Total 0300 066 9710 Balance -433.190 480 -88 Weight 75.2 kg 74.7 kg Intake: IV 975 900 862 Sodium Chloride 0.9% 1, 825 862 000 ml @ 10 mls/hr IV . Q24H [facility] Rx#:[id number] Sodium Chloride 0.9% 1, 975 75 000 ml @ 100 mls/hr IV . Q10H [facility] Rx#:[id number] Intake, IV Titration 90.810 100 100 Amount Magnesium Sulfate-D5w Pmx 100 1 gm In Dextrose/Water 1 100ml.bag @ 100 mls/hr IVPB ONCE ONE Rx#: [id number] Magnesium Sulfate-D5w Pmx 100 1 gm In Dextrose/Water 1 100ml.bag @ 100 mls/hr IVPB Q1H [facility] Rx#: [id number] propofoL 1,000 mg In 90.810 Empty Bag 1 bag @ 15 MCG/ KG/MIN 7.144 mls/hr IV . Q14H [facility] Rx#:[id number] Tube Feeding 276 Other 30 Output: Urine 4769 984 5881 Other: Voiding Method Indwelling Catheter Indwelling Catheter # Bowel Movements 1 1 ABP, PAP, CO, CI - Last Documented Arterial Blood Pressure 164/71 - Exam GENERAL EXAM: 59-year-old white male sitting in bed, on 3 L nasal cannula not in any distress HEAD: Normocephalic and atraumatic EYES: Normal reaction of pupils, equal size. No nystagmus. Nonicteric sclera NOSE: Clear with pink turbinates. THROAT: No erythema or exudates. NECK: No masses, no JVD. CHEST: No chest wall deformity. Left chest implanted device LUNGS: Fine crackles at the bases CVS: S1 and S2 normal with no audible murmur, irregular rhythm. No extra heart sounds ABDOMEN: No hepatosplenomegaly, active bowel sounds, no guarding or rigidity. SKIN: No rashes CENTRAL NERVOUS SYSTEM: Alert and oriented x 3 no gross focal neurologic deficits Psychiatric: Normal mood affect and normal mental status examination EXTREMITIES: No clubbing edema or cyanosis - Labs CBC & Chem 7: 07/23/24 03:53 07/23/24 03:53 Labs: Abnormal Lab Results - Last 24 Hours (Table) 07/22/24 07/22/24 07/22/24 Range/Units 13:15 17:47 18:07 RBC (4.30-5.90) m/uL Hgb (13.0-17.5) gm/dL Hct (39.0-53.0) % Plt Count (150-450) k/uL Lymphocytes # (1.0-4.8) k/uL ABG pO2 110 H (83-108) mmHg ABG HCO3 27 H (21-25) mmol/L ABG Total CO2 29 H (19-24) mmol/L ABG O2 Saturation 98.7 H (94-97) % Hemoglobin 11.7 L (13.0-17.5) gm/dL Sodium (137-145) mmol/L Potassium 3.4 L (3.5-5.1) mmol/L Creatinine (0.66-1.25) mg/dL POC Glucose (mg/dL) 183 H (70-110) mg/dL Magnesium (1.6-2.3) mg/dL 07/22/24 07/23/24 07/23/24 Range/Units 20:40 03:53 03:53 RBC 3.53 L (4.30-5.90) m/uL Hgb 11.3 L (13.0-17.5) gm/dL Hct 34.7 L (39.0-53.0) % Plt Count 117 L (150-450) k/uL Lymphocytes # 0.7 L (1.0-4.8) k/uL ABG pO2 (83-108) mmHg ABG HCO3 (21-25) mmol/L ABG Total CO2 (19-24) mmol/L ABG O2 Saturation (94-97) % Hemoglobin (13.0-17.5) gm/dL Sodium 136 L (137-145) mmol/L Potassium (3.5-5.1) mmol/L Creatinine 0.61 L (0.66-1.25) mg/dL POC Glucose (mg/dL) 118 H (70-110) mg/dL Magnesium 1.5 L (1.6-2.3) mg/dL Microbiology - Last 24 Hours (Table) 07/20/24 12:25 Blood Culture - Preliminary Blood 07/19/24 22:30 Gram Stain - Final Sputum Sputum Culture - Final Pseudomonas aeruginosa Assessment and Plan Assessment: Impression: Acute delirium tremens, requiring intubation mechanical ventilation, patient was extubated on 07/22/2024 Suspect alcohol withdrawal seizures, resolved Acute hypoxemic respiratory failure, secondary to above, requiring intubation mechanical ventilator. Acute systolic congestive heart failure, ejection fraction 25 to 30%, Atrial fibrillation with rapid ventricular response, presently rate controlled Elevated troponins, rule out an non-ST elevation [place] Severe hypokalemia, being replaced per protocol Hyperammonia, resolved Chronic obstructive pulmonary disease History of coronary artery disease with previous CABG History of diabetes mellitus History of hypertension History of hyperlipidemia Marijuana smoker Acute Pseudomonas aeruginosa pneumonia, on Zosyn Recommendation: Continue to monitor the patient in the ICU Psychiatric evaluation as the patient seems to be hinting about going home AMA. Will determine and confirm that the patient is mentally competent to do so Continue CIWA protocol Continue antibiotics, patient is on Zosyn for Pseudomonas in the sputum Continue bronchodilators Continue GI DVT prophylaxis Continue diuretics Continue thiamine Will continue to follow Time with Patient: Less than 30
[2024-07-23 20:25] LABS: Glucose,Whole Blood 118 mg/dL (70-110)
[2024-07-24 04:35] VITALS: RESP 16
[2024-07-24 06:27] LABS: Glucose,Whole Blood 104 mg/dL (70-110)
[2024-07-24 08:07] LABS: Basophils % (A) 1 %; Eosinophils # (A) 0.1 k/uL (0-0.7); Eosinophils % (A) 2 %; HCT 36.2 % (39.0-53.0); HGB 11.1 gm/dL (13.0-17.5); Hypochromasia Marked; Lymphocytes # (A) 0.7 k/uL (1.0-4.8); Lymphocytes % (A) 17 %; MCH 31.2 pg (25.0-35.0); MCHC 30.7 g/dL (31.0-37.0); MCV 101.7 fL (80.0-100.0); Macrocytosis Slight; Mean Platelet Volume 8.7; Monocytes # (A) 0.3 k/uL (0-1.0); Monocytes % (A) 7 %; Neutrophils # (A) 2.9 k/uL (1.3-7.7); Neutrophils % (A) 70 %; Platelet Count 145 k/uL (150-450); RBC 3.57 m/uL (4.30-5.90); RDW 14.6 % (11.5-15.5); WBC 4.1 k/uL (3.8-10.6)
[2024-07-24 08:20] LABS: African American GFR (CKD) >90 (>60 ml/min/1.73 sqM); Anion Gap 5 mmol/L; Blood Urea Nitrogen 13 mg/dL (9-20); Calcium 8.5 mg/dL (8.4-10.2); Carbon Dioxide 33 mmol/L (22-30); Chloride 97 mmol/L (98-107); Glucose 92 mg/dL (74-99); Magnesium 1.4 mg/dL (1.6-2.3); Non-African American GFR(CKD) >90 (>60 ml/min/1.73 sqM); Potassium 3.8 mmol/L (3.5-5.1); Sodium 135 mmol/L (137-145)
[2024-07-24] MEDS: MAGNESIUM SULFATE-D5W PMX 1 GM in DEXTROSE/WATER 1 100ML.BAG IVPB SCH (09:26)
[2024-07-24 11:33] LABS: Glucose,Whole Blood 90 mg/dL (70-110)
[2024-07-24] MEDS: ASPIRIN 81 MG PO SCH (12:13)
[2024-07-24] MEDS: DAPAGLIFLOZIN PROPANEDIOL 10 MG TABLET PO SCH (12:13)
[2024-07-24] MEDS: ATORVASTATIN 40 MG TAB PO SCH (12:13)
[2024-07-24] MEDS: BUMETANIDE 1 MG TAB PO SCH (12:14)
[2024-07-24 12:26] VITALS: BMI 23.9
--- NOTE | 2024-07-24 14:33 | P.PN ---
Subjective Progress Note Date: 07/24/24 Patient is a 59-year-old male with past medical history significant for alcoholism, atrial fibrillation, coronary artery disease with previous CABG, Heart failure, AICD/pacemaker, diabetes mellitus, hypertension, liver disease, COPD. Patient is currently intubated, therefore, unable to provide any inform ation for HPI. Apparently, patient presented to the emergency department yesterday evening. He had a fall at home. Reportedly did not remember his fall. Of note, patient is an alcoholic, he was recently trying to cut back on his drinking. Last reported drink was approximately 24 hours prior. While in the emergency department, patient had 2 episodes of [address] activity[address] CT of the brain and C-spine did not show any acute intracranial hemorrhage, no mass effect or midline shift. No C-spine fractures or subluxation. He received a total of 6 mg of Ativan, and also was loaded with Keppra. Also, received a dose of Haldol for agitation. He was admitted to the intensive care unit with alcohol withdrawal delirium tremens and suspected alcohol withdrawal seizures. He was also placed on Precedex which was up to 1 mg/kg/h. Despite this, he was agitated and trying to get out of bed. There is concerned that the patient may accidentally himself. Patient ended up requiring intubation for airway protection by MICROBIOLOGY MANAGER. Postintubation chest x-ray demonstrating the endotracheal tube in appropriate position above the ozzie. There is an orogastric tube coursing into the gastric fundus. Cardiomegaly noted. Possible pulmonary vascular congestion. Initial ABG was drawn postintubation. PaO2 252, pCO2 44, pH of 7.39. This was done on initial ventilator settings including assist-control, respiratory rate 20, tidal volume 450, FiO2 100%, and PEEP of 5. FiO2 was dropped to 60%. On my evaluation, patient appears synchronous with mechanical ventilator. He is on Versed which is infusing at 1 mg/h. No further seizure-like activity noted by RN. Peak pressures are elevated at 32. Static airway pressure 16. There is some airway resistance. Some minimal wheezing and rhonchi on auscultation. There is some thick yellow to brown-colored secretions. Sputum was sent for culture. No witnessed aspiration events. Earlier, patient was reportedly in atrial fibrillation with rapid ventricular response. He still remains in atrial fibrillation, however, rate is better controlled. Not currently on any antiarrhythmics. Blood pressure remained stable, not requiring vasopressors. He did require a 1 L fluid bolus postintubation. Blood pressure now normotensive. Patient will be started on heparin drip per protocol. Also has some elevated serial troponins at 0.129 and 0.204 respectively. EKG: Atrial fibrillation, controlled ventricular response, 95 bpm, T wave inversions in the lateral leads. CBC: WBC count 3, hemoglobin 11.9, hematocrit 36.7, platelets 122. Baseline aPTT 28.5. CMP: Sodium 133, potassium 2.8, chloride 99, serum bicarb 30, BUN 8, creatinine 0.53, glucose 109. Lactic 2.5. LFTs unremarkable. Ammonia was high at 51. Patient was started on lactulose. Serum alcohol less than 10 on arrival. Negative for influenza, RSV, COVID. Patient's potassium is being replaced per protocol. Patient was evaluated today on 07/21/2024, remains intubated mechanically ventilated, remains in the ICU, on assist-control rate of 20 tidal volume 450 FiO2 40% and PEEP of 5 ABG earlier on 60% showed a pO2 of 217 pCO2 40 pH of 7.41 hence FiO2 was cut down to 40%. Patient remains on propofol, sedated, seems to be very calm, and his agitation seems to be fairly well-controlled with propofol. Remains on IV fluid 0.9 normal saline at 100 cc/h remains on Zosyn and he received Lasix earlier today x 1 dose with excellent urine output. Patient had no witnessed seizures while in the ICU, but apparently had seizures prior to presentation to the ICU. Chest x-ray shows airspace opacities in the right lung base with somewhat diffuse pulmonary edema noted and he did receive Lasix earlier today. WBC count today is 4.5 hemoglobin 11.6. Basic metabolic profile is normal except for low potassium of 3.2, magnesium is 1.5 both being corrected accordingly. Sputum culture on this patient is showing Pseudomonas, patient is on Zosyn since admission Seen today on 07/22/2024, remains in the ICU, intubated and mechanically ventilated, sedated on propofol at 30 mcg/kg/min. No major events overnight, yesterday the patient became agitated when he went off propofol, he went hypotensive when he was placed on Precedex, hence could not wean the patient yesterday because of this. Today he is on assist-control rate of 20 tidal volume 450 FiO2 40% and PEEP of 5 ABG showed a pO2 of 99 pCO2 44 pH of 7.43, hence no changes were made in his ventilator settings. Patient is int ermittently on diuretics he is also on antibiotics for presumptive aspiration pneumonia. Chest x-ray continues to show evidence of bilateral airspace disease, consistent with pulmonary edema and possibly some component of pneumonia related to aspiration.WBC count is 4.5 hemoglobin 11.1. Basic meta bolic profile is normal renal profile is normal magnesium is 1.7 today Seen today on 07/23/2024, patient was extubated yesterday and he tolerated the extubation well. On 3 L nasal cannula IV fluid at KVO remains on Lasix every 12 hours remains on Zosyn for presumptive or possible aspiration. His sputum is growing Pseudomonas, patient is appropriately covered with Zosyn. His echocardiogram showed severe LV dysfunction with ejection fraction of 25 to 30%, chest x-ray today today shows evidence of pulmonary edema underlying pneumonia is not entirely ruled out. Patient wants to go home, and he is willing to go AMA. I suggested psychiatric evaluation, and if the patient is proven to be mentally competent, and he insists on going home AMA, will let him do to do so. Patient was made aware that he is quite ill, and I am not recommending discharge at this point yet. Count is 4.7 hemoglobin 11.3 basic metabolic profile is normal renal profile is normal The patient is seen today July 24, 2024 in follow-up on the selective care unit. He was transferred out of the ICU yesterday. He is currently awake and alert in no acute distress. He is maintaining O2 saturations in the 90s on 2 L /min per nasal cannula. He has been afebrile. Hemodynamically stable. Sputum culture was positive for Pseudomonas aeruginosa. Blood cultures revealed no growth. White count 4.1. Hemoglobin 11.1. Platelets 145. Sodium 135. Potassium 3.8. Bicarb 33. BUN 13. Creatinine 0.64. Glucose 92. He is continued on DuoNeb inhalations. Continued on Zosyn. Continued on oral diuretics. Currently in a -1.2 L balance. Objective - Vital Signs Vital signs: Vital Signs Temp 98.3 F 07/24/24 03:27 Pulse 75 07/24/24 11:43 Resp 16 07/24/24 11:40 BP 116/63 07/24/24 11:40 Pulse Ox 99 07/24/24 11:40 FiO2 40 07/22/24 12:40 Intake & Output 07/23/24 07/24/24 07/24/24 18:59 06:59 18:59 Intake Total 1102 120 Output Total 1525 800 Balance -423 -800 120 Weight 73.5 kg 73.5 kg Intake: IV 902 Sodium Chloride 0.9% 1, 902 000 ml @ 10 mls/hr IV . Q24H JAYSHREE Rx#:[id number] Intake, IV Titration 200 Amount Magnesium Sulfate-D5w Pmx 100 1 gm In Dextrose/Water 1 100ml.bag @ 100 mls/hr IVPB Q1H JAYSHREE Rx#: [id number] Piperacillin-Tazobactam 3 100 .375 gm In Sodium Chloride 0.9% 100 ml @ 25 mls/hr IVPB Q8H JAYSHREE Rx#: [id number] Oral 120 Output: Urine 1525 800 Other: Voiding Method Urinal Urinal Urinal ABP, PAP, CO, CI - Last Documented Arterial Blood Pressure 164/71 - Exam GENERAL EXAM: Disheveled 59-year-old male sitting in bed, on 2 L nasal cannula, not in any distress HEAD: Normocephalic and atraumatic EYES: Normal reaction of pupils, equal size. No nystagmus. Nonicteric sclera NOSE: Clear with pink turbinates. THROAT: No erythema or exudates. NECK: No masses, no JVD. CHEST: No chest wall deformity. Left chest implanted device LUNGS: Fine crackles at the bases CVS: S1 and S2 normal with no audible murmur, irregular rhythm. No extra heart sounds ABDOMEN: No hepatosplenomegaly, active bowel sounds, no guarding or rigidity. SKIN: No rashes CENTRAL NERVOUS SYSTEM: Alert and oriented x 3 no gross focal neurologic defic its Psychiatric: Normal mood affect and normal mental status examination EXTREMITIES: No clubbing edema or cyanosis - Labs CBC & Chem 7: 07/24/24 07:15 07/24/24 07:15 Labs: Abnormal Lab Results - Last 24 Hours (Table) 07/23/24 07/24/24 07/24/24 Range/Units 20:24 07:15 07:15 RBC 3.57 L (4.30-5.90) m/uL Hgb 11.1 L (13.0-17.5) gm/dL Hct 36.2 L (39.0-53.0) % MCV 101.7 H (80.0-100.0) fL MCHC 30.7 L (31.0-37.0) g/dL Plt Count 145 L (150-450) k/uL Lymphocytes # 0.7 L (1.0-4.8) k/uL Sodium 135 L (137-145) mmol/L Chloride 97 L (98-107) mmol/L Carbon Dioxide 33 H (22-30) mmol/L Creatinine 0.64 L (0.66-1.25) mg/dL POC Glucose (mg/dL) 118 H (70-110) mg/dL Magnesium 1.4 L (1.6-2.3) mg/dL Microbiology - Last 24 Hours (Table) 07/20/24 12:25 Blood Culture - Preliminary Blood Assessment and Plan Assessment: Acute delirium tremens, requiring intubation mechanical ventilation, patient was extubated on 07/22/2024 Suspect alcohol withdrawal seizures, resolved Acute hypoxemic respiratory failure, secondary to above, requiring intubation mechanical ventilator, recovered and on 2 L nasal cannula. Acute systolic congestive heart failure, ejection fraction 25 to 30%, Atrial fibrillation with rapid ventricular response, presently rate controlled Elevated troponins, rule out an non-ST elevation IA Severe hypokalemia, being replaced per protocol Hyperammonia, resolved Chronic obstructive pulmonary disease History of coronary artery disease with previous CABG History of diabetes mellitus History of hypertension History of hyperlipidemia Marijuana smoker Acute Pseudomonas aeruginosa pneumonia, on Zosyn Plan: The patient was seen and evaluated Labs and medications reviewed Stable and on 2 L nasal cannula Titrate down/off the FiO2 as tolerated Continued on Zosyn Plan is for return home at discharge I have personally seen and examined the patient, performed the documentation and the assessment and plan as written. Number of minutes spent on the visit: 10.
--- NOTE | 2024-07-24 14:43 | P.PN ---
Subjective Progress Note Date: 07/24/24 No new complaints. Pt remains on nebs. Doing much better. Gen: In NAD, non-toxic HEENT: normocephalic, atraumatic, hearing acuity is intant, mucous membranes moist CVS: perfusing all extremities well, no pitting edema, Respiratory: symmetric chest expansion, no accessory muscle use, GI: soft, NTTP, ND, : no suprapubic tenderness, no CVA tenderness MSK/Derm: no rashes, cyanosis Neuro: CN II-XII intact, no motor weakness, Hospital Course: 59-year-old male with history of alcohol dependence, atrial fibrillation, CAD status post CABG, HFrEF status post AICD, presenting with fall at home. Patient also encephalopathic, unsure if there was alcohol withdrawal seizure. Patient had respiratory failure in the ED and ended up being intubated and mechanically ventilated. On arrival patient was on room air but quickly started requiring nonrebreather, pulse 130, respiratory 25, blood pressure 154/92. WBC 3, hemoglobin 11.9, platelet 122, pH 7.39, pCO2 44, pO2 252, sodium 133, potassium of 2.8, creatinine 0.53, magnesium 1.4, lactate 2.5, ammonia 51, total bili 2.5, AST 35, ALT 11, urinalysis shows negative nitrites, negative leukocyte esterase, toxicology positive for benzos, marijuana, negative for alcohol, respiratory viral panel negative. Troponin elevated to 0.04. CT head and neck did not show any acute fractures, no other acute process. He also showed moderate emphysema. Chest x-ray independently interpreted, shows interstitial opacities. EKG independently interpreted shows atrial fibrillation. Pelvic x-ray did not show any acute fractures. Currently patient sedated on Versed and propofol, mechanically ventilated, on heparin drip and Cardizem drip, also on IV ant ibiotics. Assessment and Plan: Active: Acute hypoxic respiratory failure Pseudomonal Pneumonia -Pulmonology note reviewed, continue mechanical ventilation -Wean as tolerated -Continue IV Zosyn 3.375 g every 8 hours, blood cultures NGTD, sputum cultures growing pseudomonas Alcohol withdrawal seizures Alcohol dependence with severe alcohol withdrawal -On propofol drip, Versed drip, wean as tolerated -IV Ativan per CIWA score once patient is more awake -Thiamine 100 mg daily -Reduce IVF to KVO, NSTEMI, likely type II Atrial fibrillation with RVR HFrEF, not in exacerbation -Metoprolol 25mg BID -Cardiology consulted -Echocardiogram showed LVEF 25 to 30% -Holding Jardiance -Entresto restarted -Lasix 40mg IV q12h Hypovolemic hyponatremia, resolved Hypomagnesemia -Mag replacement PRN -Repeat mag level tomorrow Resolved: Hypokalemia Chronic: Liver disease? DVT ppx: Apixaban Code status: Full code Anticipated discharge place: Pending clinical course Anticipated discharge time: Pending clinical course Objective - Vital Signs Vital signs: Vital Signs Temp 98.3 F 07/24/24 03:27 Pulse 75 07/24/24 11:43 Resp 16 07/24/24 11:40 BP 116/63 07/24/24 11:40 Pulse Ox 99 07/24/24 11:40 FiO2 40 07/22/24 12:40 Intake & Output 07/23/24 07/24/24 07/24/24 18:59 06:59 18:59 Intake Total 1102 480 Output Total 1525 800 Balance -423 -800 480 Weight 73.5 kg 73.5 kg Intake: IV 902 Sodium Chloride 0.9% 1, 902 000 ml @ 10 mls/hr IV . Q24H JAYSHREE Rx#:[id number] Intake, IV Titration 200 Amount Magnesium Sulfate-D5w Pmx 100 1 gm In Dextrose/Water 1 100ml.bag @ 100 mls/hr IVPB Q1H JAYSHREE Rx#: [id number] Piperacillin-Tazobactam 3 100 .375 gm In Sodium Chloride 0.9% 100 ml @ 25 mls/hr IVPB Q8H JAYSHREE Rx#: [id number] Oral 480 Output: Urine 1525 800 Other: Voiding Method Urinal Urinal Urinal ABP, PAP, CO, CI - Last Documented Arterial Blood Pressure 164/71 - Labs CBC & Chem 7: 07/24/24 07:15 07/24/24 07:15 Labs: Abnormal Lab Results - Last 24 Hours (Table) 07/23/24 07/24/24 07/24/24 Range/Units 20:24 07:15 07:15 RBC 3.57 L (4.30-5.90) m/uL Hgb 11.1 L (13.0-17.5) gm/dL Hct 36.2 L (39.0-53.0) % MCV 101.7 H (80.0-100.0) fL MCHC 30.7 L (31.0-37.0) g/dL Plt Count 145 L (150-450) k/uL Lymphocytes # 0.7 L (1.0-4.8) k/uL Sodium 135 L (137-145) mmol/L Chloride 97 L (98-107) mmol/L Carbon Dioxide 33 H (22-30) mmol/L Creatinine 0.64 L (0.66-1.25) mg/dL POC Glucose (mg/dL) 118 H (70-110) mg/dL Magnesium 1.4 L (1.6-2.3) mg/dL Microbiology - Last 24 Hours (Table) 07/20/24 12:25 Blood Culture - Preliminary Blood
--- NOTE | 2024-07-24 14:51 | P.CN ---
Psychiatric Consult - . Consult date: 07/24/24 Consult:: 07/24/24 14:44 IDENTIFYING DATA: This patient is a 59-year-old male with history of alcohol use disorder, living with roommate REASON FOR REFERRAL: Psychiatry was consulted for competence as patient was attempting to leave AMA HISTORY OF PRESENT ILLNESS: The patient presented to the hospital with a chief complaint of fall. Patient reports being a daily drinker and was admitted to the ICU and intubated for alcohol withdrawal symptoms and placed on CIWA protocol. Once patient was extubated yesterday, he began reporting wanting to go home and was attempting to leave AMA. Patient seen today and was A and O x 3. He admits to drinking daily and states he now realizes himself as an alcoholic. He states being open to possibly going to rehab once discharged but will definitely start going to AA meetings. He reports willingness to stay in the hospital as long as it takes to get better as he spoke to his sister. He was unaware of why he was in the hospital or what medications he is on while at the hospital but this was discussed in detail during this interview. He states he is now aware that if he was to be discharged home, his infection might get worse and his withdrawal symptoms might also worsen. He no longer wishes to leave AMA because of this. At this time patient denies any suicidal or homical ideations, intent or plan. Patient denies any auditory, visual hallucinations and denies any paranoia or delusions. PAST PSYCHIATRIC HISTORY: Patient has a a history of alcohol use disorder with 2 prior inpatient rehab hospitalizations. Patient denies being on any psychiatric medications. Patient denies any psychiatric outpatient follow-up. Patient denies any history of suicide attempts in the past. PAST MEDICAL HISTORY: A-fib. ALLERGIES: as per EMR. CHEMICAL DEPENDENCY HISTORY: as per HPI. FAMILY PSYCHIATRIC/SUBSTANCE USE HISTORY: Denies SOCIAL HISTORY: Patient reports living with a roommate and handles all of his ADLs independently. MENTAL STATUS EXAM: General Appearance: Patient appears to be stated age is alert, pleasant, and cooperative. Patient appears to have fair hygiene and grooming wearing hospital gown with fair eye contact. Behavior: Patient is calmly sitting at side of bed without any agitated behavior. Speech: Patient's speech is fluent and nonpressured. Mood/Affect: Patient reports their mood is "that are", affect is congruent Suicidality/Homicidality: Patient denies having any suicidal or homicidal ideation intent or plan. Perceptions: Patient denies any visual hallucinations and denies any auditory hallucinations Though content/process: There is no evidence of any delusional thought content and thought process is linear and goal-directed. Memory and concentration: AOX3, grossly intact for the purposes of this session. Cannot spell "WORLD" backwards Judgment and insight: Poor IMPRESSIONS: Alcohol use disorder, recurrent, severe in withdrawal PLAN: -At this time patient DOES NOT meet criteria for inpatient psychiatric admission. -Patient DOES have decision making capacity at this time and is unable to reason through and communicate/appreciate the risks, benefits and alternatives to treatment. -CIWA protocol with PRN Ativan for alcohol withdrawal. Continue to monitor vital signs. -Client Finance Analyst spoke with patient about substance abuse and the harmful effects on medical and mental health, patient verbally understood and agreed. -mat worker to provide patient substance use treatment resources including AA/NA meetings in the community. -mat worker to provide patient with access line number to call for inpatient substance rehab -Communicated plan to patient's nurse -Psychiatry will sign off at this time -Please contact with any questions. 07/24/24 14:51
[2024-07-24] MEDS ORDERED: BUMETANIDE 1 MG TAB PO SCH (16:00)
[2024-07-24 16:11] LABS: Glucose,Whole Blood 94 mg/dL (70-110)
--- NOTE | 2024-07-24 17:08 | P.PN ---
Subjective Progress Note Date: 07/24/24 HISTORY OF PRESENTING ILLNESS Patient is a pleasant 59-year-old male with history of CAD status post CABG approximately 25 years ago, ischemic cardiomyopathy status post AICD, ventricular tachycardia status post VT ablation, paroxysmal atrial fibrillation, hypertension, alcohol abuse, tobacco abuse, PAD with prior bifemoral bypass in 2012, previous carotid endarterectomy March 2020 as well as previous left atrial appendage thrombus which improved after anticoagulation. He normally follows with Dr. Kruse from [facility]. He has had a number of admissions at [facility] previous workup in February 2022 showing EF 40%. Patient currently intubated and sedated and history is supplied by chart. Per report, patient presented with a fall at home and concern of a seizure. Apparently patient has been attempting to withdraw from alcohol and concern of patient withdrawing and having a seizure. Patient was intubated and sedated in the emergency department with concern of alcohol seizure withdrawals and received Ativan and emergency department and on Versed drip. Cardiology was con sult and secondary A. fib with RVR on presentation however heart rates much improved after sedation. He does AICD. He remains on ventilator with FiO2 60%. Echocardiogram performed which shows EF 25-30%, mild aortic regurgitation, mild mitral regurgitation and RVSP of 66. He received 1 dose of IV Lasix however also has been receiving IV fluids at 75 mL per hour. He has adequate urine output. He was initially having significant ventricular ectopy however this improved with replacing electrolytes and sedation. On presentation sodium 133, potassium 2.8, lactic acid 2.5, creatinine 0.5. He does have pancytopenia with white blood cell count 3.0, hemoglobin 11.9, platelets 122. Troponin 0.12, 0.20, 0.20. EKG shows normal A. fib with LVH with strain with ST depressions V5 through V6 with poor R-wave progression, complete left bundle branch block. 07/21 patient seen and examined. Patient remains intubated on 40% FiO2. Repeat blood work shows stable creatinine and sodium 134. He is receiving IV fluids at 100 mL per hour. Remains on heparin drip. Remains in A. fib with some ectopy cvr. Blood pressure somewhat increased up into the 140s to 150s systolic. 07/22 Patient seen and examined in the ICU. Patient failed to wean off the ventilator yesterday and developed hypotension and restlessness. Patient is currently in a controlled atrial fibrillation. He has been started on tube feedings and urine output has been improving. He is currently on IV fluids at 100 cc/h. Blood pressure 124/52, heart rate 76, pulse ox 99%. Repeat blood work reveals hemoglobin 11.1. Electrolytes are normal, creatinine 0.66. Repeat chest x-ray reveals cardiomegaly, bibasilar infiltrates, small left pleural effusion may be present. 07/23 Patient seen and examined in the intensive care unit. Patient has been successfully extubated. He states he that he is feeling fine. He thinks he came into the hospital because he drank too much. Alcohol cessation discussed with the patient and he plans to quit. Blood pressure 121/72, heart rate 80, pulse ox 88% on 3 L nasal cannula. Repeat blood work reveals hemoglobin 11.3. Sodium 136, BUN 12 and creatinine 0.61. This morning, patient was started on IV Lasix by pulmonary medicine. July 24, 2024 Hemoglobin 11.7, platelets 145, sodium 135, potassium 3.8, magnesium 1.4 which is being replaced, BUN 13, creatinine 0.6. Patient denies having any active chest pain chest pressure. He is improving. Was transferred out of ICU yesterday. PHYSICAL EXAMINATION Vital signs reviewed. CONSTITUTIONAL: No apparent distress HEENT: Head is normocephalic. Pupils are equal, round. Sclerae anicteric. Mucous membranes of the mouth are moist. No JVD. No carotid bruit. CHEST EXAMINATION: Lungs are clear to auscultation. No chest wall tenderness is noted on palpation or with deep breathing. HEART EXAMINATION: Regular rate and rhythm. S1, S2 heard. No murmurs, gallops or rub. ABDOMEN: Soft, nontender. Positive bowel sounds. EXTREMITIES: 2+ peripheral pulses, no lower extremity edema and no calf tenderness. NEUROLOGIC EXAMINATION: Patient is awake and alert ASSESSMENT Persistent A. fib with initial RVR, now controlled rate Cardiomyopathy likely component of alcohol-induced cardiomyopathy as well as ischemic CAD with prior CABG Non-STEMI likely type II related to seizure Status post AICD Alcohol abuse Seizures Hypokalemia Hyponatremia PLAN Patient with mildly elevated troponins however appears likely type II mechanism related to seizure, and alcohol withdrawals. Continue aspirin milligrams, Eliquis 5 mg twice daily, atorvastatin 40 mg daily Discontinue IV diuretic. Start Bumex 1 mg p.o. daily Continue Farxiga 10 mg daily Continue metoprolol 25 g twice daily Continue Entresto 24 - 26 mg twice daily Objective - Vital Signs Vital signs: Vital Signs Temp 98.3 F 07/24/24 03:27 Pulse 75 07/24/24 15:36 Resp 16 07/24/24 15:52 BP 103/50 07/24/24 15:52 Pulse Ox 99 07/24/24 15:52 FiO2 40 07/22/24 12:40 Intake & Output 07/23/24 07/24/24 07/24/24 18:59 06:59 18:59 Intake Total 1102 480 Output Total 1525 800 625 Balance -423 -800 -145 Weight 73.5 kg 73.5 kg Intake: IV 902 Sodium Chloride 0.9% 1, 902 000 ml @ 10 mls/hr IV . Q24H JAYSHREE Rx#:[id number] Intake, IV Titration 200 Amount Magnesium Sulfate-D5w Pmx 100 1 gm In Dextrose/Water 1 100ml.bag @ 100 mls/hr IVPB Q1H JAYSHREE Rx#: [id number] Piperacillin-Tazobactam 3 100 .375 gm In Sodium Chloride 0.9% 100 ml @ 25 mls/hr IVPB Q8H JAYSHREE Rx#: [id number] Oral 480 Output: Urine 1525 800 625 Other: Voiding Method Urinal Urinal Urinal ABP, PAP, CO, CI - Last Documented Arterial Blood Pressure 164/71 - Labs CBC & Chem 7: 07/24/24 07:15 07/24/24 07:15 Labs: Abnormal Lab Results - Last 24 Hours (Table) 07/23/24 07/24/24 07/24/24 Range/Units 20:24 07:15 07:15 RBC 3.57 L (4.30-5.90) m/uL Hgb 11.1 L (13.0-17.5) gm/dL Hct 36.2 L (39.0-53.0) % MCV 101.7 H (80.0-100.0) fL MCHC 30.7 L (31.0-37.0) g/dL Plt Count 145 L (150-450) k/uL Lymphocytes # 0.7 L (1.0-4.8) k/uL Sodium 135 L (137-145) mmol/L Chloride 97 L (98-107) mmol/L Carbon Dioxide 33 H (22-30) mmol/L Creatinine 0.64 L (0.66-1.25) mg/dL POC Glucose (mg/dL) 118 H (70-110) mg/dL Magnesium 1.4 L (1.6-2.3) mg/dL Microbiology - Last 24 Hours (Table) 07/20/24 12:25 Blood Culture - Preliminary Blood
[2024-07-24 20:16] LABS: Glucose,Whole Blood 93 mg/dL (70-110)
[2024-07-25 06:08] LABS: Glucose,Whole Blood 91 mg/dL (70-110)
[2024-07-25 07:22] LABS: Basophils % (A) 0 %; Eosinophils # (A) 0.1 k/uL (0-0.7); Eosinophils % (A) 3 %; HCT 35.1 % (39.0-53.0); HGB 10.8 gm/dL (13.0-17.5); Hypochromasia Marked; Lymphocytes # (A) 0.5 k/uL (1.0-4.8); Lymphocytes % (A) 16 %; MCH 30.8 pg (25.0-35.0); MCHC 30.8 g/dL (31.0-37.0); Macrocytosis Slight; Mean Platelet Volume 8.3; Monocytes # (A) 0.3 k/uL (0-1.0); Monocytes % (A) 8 %; Neutrophils # (A) 2.2 k/uL (1.3-7.7); Neutrophils % (A) 68 %; Platelet Count 141 k/uL (150-450); RBC 3.51 m/uL (4.30-5.90); RDW 14.8 % (11.5-15.5); WBC 3.3 k/uL (3.8-10.6)
[2024-07-25 07:43] LABS: African American GFR (CKD) >90 (>60 ml/min/1.73 sqM); Anion Gap 2 mmol/L; Blood Urea Nitrogen 12 mg/dL (9-20); Calcium 8.1 mg/dL (8.4-10.2); Carbon Dioxide 35 mmol/L (22-30); Chloride 98 mmol/L (98-107); Glucose 84 mg/dL (74-99); Magnesium 1.8 mg/dL (1.6-2.3); Non-African American GFR(CKD) >90 (>60 ml/min/1.73 sqM); Potassium 3.1 mmol/L (3.5-5.1); Sodium 135 mmol/L (137-145)
[2024-07-25 08:51] VITALS: TEMP 98.2
[2024-07-25 11:16] LABS: Glucose,Whole Blood 84 mg/dL (70-110)
[2024-07-25] MEDS ORDERED: Potassium Replacement Protocol 1 EACH MISC MISCELLANE PRN (12:01)
[2024-07-25] MEDS: POTASSIUM CHLORIDE ER 20 MEQ TAB.ER PO SCH (12:42)
--- NOTE | 2024-07-25 14:36 | P.PN ---
Subjective Progress Note Date: 07/25/24 Patient is a 59-year-old male with past medical history significant for alcoholism, atrial fibrillation, coronary artery disease with previous CABG, Heart failure, AICD/pacemaker, diabetes mellitus, hypertension, liver disease, COPD. Patient is currently intubated, therefore, unable to provide any inform ation for HPI. Apparently, patient presented to the emergency department yesterday evening. He had a fall at home. Reportedly did not remember his fall. Of note, patient is an alcoholic, he was recently trying to cut back on his drinking. Last reported drink was approximately 24 hours prior. While in the emergency department, patient had 2 episodes of seizure activity. CT of the brain and C-spine did not show any acute intracranial hemorrhage, no mass effect or midline shift. No C-spine fractures or subluxation. He received a total of 6 mg of Ativan, and also was loaded with Keppra. Also, received a dose of Haldol for agitation. He was admitted to the intensive care unit with alcohol withdrawal delirium tremens and suspected alcohol withdrawal seizures. He was also placed on Precedex which was up to 1 mg/kg/h. Despite this, he was agitated and trying to get out of bed. There is concerned that the patient may accidentally himself. Patient ended up requiring intubation for airway protection by GUN PERFORATOR. Postintubation chest x-ray demonstrating the endotracheal tube in appropriate position above the ozzie. There is an orogastric tube coursing into the gastric fundus. Cardiomegaly noted. Possible pulmonary vascular congestion. Initial ABG was drawn postintubation. PaO2 252, pCO2 44, pH of 7.39. This was done on initial ventilator settings including assist-control, respiratory rate 20, tidal volume 450, FiO2 100%, and PEEP of 5. FiO2 was dropped to 60%. On my evaluation, patient appears synchronous with mechanical ventilator. He is on Versed which is infusing at 1 mg/h. No further seizure-like activity noted by RN. Peak pressures are elevated at 32. Static airway pressure 16. There is some airway resistance. Some minimal wheezing and rhonchi on auscultation. There is some thick yellow to brown-colored secretions. Sputum was sent for culture. No witnessed aspiration events. Earlier, patient was reportedly in atrial fibrillation with rapid ventricular response. He still remains in atrial fibrillation, however, rate is better controlled. Not currently on any antiarrhythmics. Blood pressure remained stable, not requiring vasopressors. He did require a 1 L fluid bolus postintubation. Blood pressure now normotensive. Patient will be started on heparin drip per protocol. Also has some elevated serial troponins at 0.129 and 0.204 respectively. EKG: Atrial fibrillation, controlled ventricular response, 95 bpm, T wave inversions in the lateral leads. CBC: WBC count 3, hemoglobin 11.9, hematocrit 36.7, platelets 122. Baseline aPTT 28.5. CMP: Sodium 133, potassium 2.8, chloride 99, serum bicarb 30, BUN 8, creatinine 0.53, glucose 109. Lactic 2.5. LFTs unremarkable. Ammonia was high at 51. Patient was started on lactulose. Serum alcohol less than 10 on arrival. Negative for influenza, RSV, COVID. Patient's potassium is being replaced per protocol. Patient was evaluated today on 07/21/2024, remains intubated mechanically ventilated, remains in the ICU, on assist-control rate of 20 tidal volume 450 FiO2 40% and PEEP of 5 ABG earlier on 60% showed a pO2 of 217 pCO2 40 pH of 7.41 hence FiO2 was cut down to 40%. Patient remains on propofol, sedated, seems to be very calm, and his agitation seems to be fairly well-controlled with propofol. Remains on IV fluid 0.9 normal saline at 100 cc/h remains on Zosyn and he received Lasix earlier today x 1 dose with excellent urine output. Patient had no witnessed seizures while in the ICU, but apparently had seizures prior to presentation to the ICU. Chest x-ray shows airspace opacities in the right lung base with somewhat diffuse pulmonary edema noted and he did receive Lasix earlier today. WBC count today is 4.5 hemoglobin 11.6. Basic metabolic profile is normal except for low potassium of 3.2, magnesium is 1.5 both being corrected accordingly. Sputum culture on this patient is showing Pseudomonas, patient is on Zosyn since admission Seen today on 07/22/2024, remains in the ICU, intubated and mechanically ventilated, sedated on propofol at 30 mcg/kg/min. No major events overnight, yesterday the patient became agitated when he went off propofol, he went hypotensive when he was placed on Precedex, hence could not wean the patient yesterday because of this. Today he is on assist-control rate of 20 tidal volume 450 FiO2 40% and PEEP of 5 ABG showed a pO2 of 99 pCO2 44 pH of 7.43, hence no changes were made in his ventilator settings. Patient is int ermittently on diuretics he is also on antibiotics for presumptive aspiration pneumonia. Chest x-ray continues to show evidence of bilateral airspace disease, consistent with pulmonary edema and possibly some component of pneumonia related to aspiration.WBC count is 4.5 hemoglobin 11.1. Basic meta bolic profile is normal renal profile is normal magnesium is 1.7 today Seen today on 07/23/2024, patient was extubated yesterday and he tolerated the extubation well. On 3 L nasal cannula IV fluid at KVO remains on Lasix every 12 hours remains on Zosyn for presumptive or possible aspiration. His sputum is growing Pseudomonas, patient is appropriately covered with Zosyn. His echocardiogram showed severe LV dysfunction with ejection fraction of 25 to 30%, chest x-ray today today shows evidence of pulmonary edema underlying pneumonia is not entirely ruled out. Patient wants to go home, and he is willing to go AMA. I suggested psychiatric evaluation, and if the patient is proven to be mentally competent, and he insists on going home AMA, will let him do to do so. Patient was made aware that he is quite ill, and I am not recommending discharge at this point yet. Count is 4.7 hemoglobin 11.3 basic metabolic profile is normal renal profile is normal The patient is seen today July 24, 2024 in follow-up on the [facility] care unit. He was transferred out of the ICU yesterday. He is currently awake and alert in no acute distress. He is maintaining O2 saturations in the 90s on 2 L /min per nasal cannula. He has been afebrile. Hemodynamically stable. Sputum culture was positive for Pseudomonas aeruginosa. Blood cultures revealed no growth. White count 4.1. Hemoglobin 11.1. Platelets 145. Sodium 135. Potassium 3.8. Bicarb 33. BUN 13. Creatinine 0.64. Glucose 92. He is continued on DuoNeb inhalations. Continued on Zosyn. Continued on oral diuretics. Currently in a -1.2 L balance. The patient is seen today July 25, 2024 in follow-up on the [facility]. He is currently resting in bed. Awake and alert in no acute distress. He is maintaining good O2 saturations in the 90s on room air. Afebrile. Hemodynamically stable. Sputum culture positive for Pseudomonas aeruginosa. Blood culture revealed no growth. White count 3.3. Hemoglobin 10.8. Platelets 141. Sodium 135. Potassium 3.1. Bicarb 35. BUN 12. Creatinine 0.72. Glucose 84. He remains on bronchodilators and Zosyn. Anticoagulated with Eliquis. Remains on oral diuretics. Objective - Vital Signs Vital signs: Vital Signs Temp 98.2 F 07/25/24 08:49 Pulse 68 07/25/24 11:21 Resp 16 07/25/24 11:16 BP 94/55 07/25/24 11:16 Pulse Ox 99 07/25/24 11:16 FiO2 40 07/22/24 12:40 Intake & Output 07/24/24 07/25/24 07/25/24 18:59 06:59 18:59 Intake Total 600 360 Output Total 950 300 375 Balance -350 -300 -15 Weight 73.5 kg 74.5 kg Intake: Oral 600 360 Output: Urine 950 300 375 Other: Voiding Method Urinal Urinal # Bowel Movements 1 ABP, PAP, CO, CI - Last Documented Arterial Blood Pressure 164/71 - Exam GENERAL EXAM: Disheveled 59-year-old male, resting in bed, on room air, not in any distress HEAD: Normocephalic and atraumatic EYES: Normal reaction of pupils, equal size. No nystagmus. Nonicteric sclera NOSE: Clear with pink turbinates. THROAT: No erythema or exudates. NECK: No masses, no JVD. CHEST: No chest wall deformity. Left chest implanted device LUNGS: Fine crackles at the bases CVS: S1 and S2 normal with no audible murmur, irregular rhythm. No extra heart sounds ABDOMEN: No hepatosplenomegaly, active bowel sounds, no guarding or rigidity. SKIN: No rashes CENTRAL NERVOUS SYSTEM: Alert and oriented x 3 no gross focal neurologic deficits Psychiatric: Normal mood affect and normal mental status examination EXTREMITIES: No clubbing edema or cyanosis - Labs CBC & Chem 7: 07/25/24 07:04 07/25/24 07:04 Labs: Abnormal Lab Results - Last 24 Hours (Table) 07/25/24 07/25/24 Range/Units 07:04 07:04 WBC 3.3 L (3.8-10.6) k/uL RBC 3.51 L (4.30-5.90) m/uL Hgb 10.8 L (13.0-17.5) gm/dL Hct 35.1 L (39.0-53.0) % MCHC 30.8 L (31.0-37.0) g/dL Plt Count 141 L (150-450) k/uL Lymphocytes # 0.5 L (1.0-4.8) k/uL Sodium 135 L (137-145) mmol/L Potassium 3.1 L (3.5-5.1) mmol/L Carbon Dioxide 35 H (22-30) mmol/L Calcium 8.1 L (8.4-10.2) mg/dL Assessment and Plan Assessment: Acute delirium tremens, requiring intubation mechanical ventilation, patient was extubated on 07/22/2024, recovered and on room air Suspect alcohol withdrawal seizures, resolved Acute hypoxemic respiratory failure, secondary to above, requiring intubation mechanical ventilator, recovered and on 2 L nasal cannula. Acute systolic congestive heart failure, ejection fraction 25 to 30%, Atrial fibrillation with rapid ventricular response, presently rate controlled Elevated troponins, rule out an non-ST elevation [place] Severe hypokalemia, being replaced per protocol Hyperammonia, resolved Chronic obstructive pulmonary disease History of coronary artery disease with previous CABG History of diabetes mellitus History of hypertension History of hyperlipidemia Marijuana smoker Acute Pseudomonas aeruginosa pneumonia, on Zosyn Plan: The patient was seen and evaluated Labs and medications reviewed Stable and on room air Discontinue Zosyn Complete antibiotics with 3 more days of Levaquin Plan is for return home at discharge I have personally seen and examined the patient, performed the documentation and the assessment and plan as written. Number of minutes spent on the visit: 10.
[2024-07-25 15:27] VITALS: PULSE 70
[2024-07-25 16:12] VITALS: BP 96/61
[2024-07-25 16:27] LABS: Glucose,Whole Blood 94 mg/dL (70-110)
--- NOTE | 2024-07-25 16:59 | P.DS ---
Providers Date of admission: 07/19/24 20:32 Expected date of discharge: 07/25/24 Attending physician: Lo Pope MD Consults: 07/19/24 20:30 Consult Physician Urgent Consulting Provider: Ozzie Kirkpatrick Consult Reason/Comments: alcohol withdrawals, seizures. Spoke with Dr. Pope. Do you want consulting provider notified?: Already Contacted 07/20/24 00:00 Consult Physician Routine Consulting Provider: Cristopher Reddy Consult Reason/Comments: HX afib, positive trop Do you want consulting provider notified?: Yes, Notify in am 07/23/24 08:55 Consult Physician Routine Consulting Provider: Gurpreet Alvarez Consult Reason/Comments: Mental competence, ? AMA Do you want consulting provider notified?: Yes Primary care physician: Stated None Hospital Course: Acute hypoxic respiratory failure Pseudomonal Pneumonia Alcohol withdrawal seizures Alcohol dependence with severe alcohol withdrawal NSTEMI, likely type II Atrial fibrillation with RVR HFrEF, not in exacerbation Hypovolemic hyponatremia, resolved Hypomagnesemia Gen: In NAD, non-toxic HEENT: normocephalic, atraumatic, hearing acuity is intant, mucous membranes moist CVS: perfusing all extremities well, no pitting edema, Respiratory: symmetric chest expansion, no accessory muscle use, GI: soft, NTTP, ND, : no suprapubic tenderness, no CVA tenderness MSK/Derm: no rashes, cyanosis Neuro: CN II-XII intact, no motor weakness, Hospital Course: 59-year-old male with history of alcohol dependence, atrial fibrillation, CAD status post CABG, HFrEF status post AICD, presenting with fall at home. Patient also encephalopathic, unsure if there was alcohol withdrawal seizure. Patient had respiratory failure in the ED and ended up being intubated and mechanically ventilated. On arrival patient was on room air but quickly started requiring nonrebreather, pulse 130, respiratory 25, blood pressure 154/92. WBC 3, hemoglobin 11.9, platelet 122, pH 7.39, pCO2 44, pO2 252, sodium 133, potassium of 2.8, creatinine 0.53, magnesium 1.4, lactate 2.5, ammonia 51, total bili 2.5, AST 35, ALT 11, urinalysis shows negative nitrites, negative leukocyte esterase, toxicology positive for benzos, marijuana, negative for alcohol, respiratory viral panel negative. Troponin elevated to 0.04. CT head and neck did not show any acute fractures, no other acute process. He also showed moderate emphysema. Chest x-ray independently interpreted, shows interstitial opacities. EKG independently interpreted shows atrial fibrillation. Pelvic x-ray did not show any acute fractures. Patient sedated on Versed and propofol, mechanically ventilated, on heparin drip and Cardizem drip, also on IV antibiotics. Sputum culture ultimately grew Pseudomonas, and patient was treated appropriately with Zosyn. He was ultimately extubated and continue treatment with pulmonology oversight for COPD exacerbation with pseudomonal pneumonia. On day of discharge he was provided with an additional 3 days of levofloxacin to complete course of antibiotic therapy, as well as provided with medications for COPD. Patient will follow-up with pulmonology as well as primary care physician upon discharge. Advised strongly to quit drinking at this point. I spent 40 minutes coordinating this discharge Patient Condition at Discharge: Serious Plan - Discharge Summary New Discharge Prescriptions: New Sacubitril/Valsartan [Entresto 24 mg-26 mg Tablet] 1 each PO BID #60 tab Levofloxacin [Levaquin] 500 mg PO Q24H #3 tab Atorvastatin [Lipitor] 40 mg PO DAILY #30 tab Metoprolol Tartrate [Lopressor] 25 mg PO BID #60 tab Aspirin 81 mg PO DAILY #30 tab Bumetanide [BUMEX] 1 mg PO DAILY #30 tab Lactulose [Cephulac] 20 gm PO TID #2700 ml Apixaban [Eliquis] 5 mg PO BID #60 tab Dapagliflozin Propanediol [Farxiga] 10 mg PO DAILY #30 tab Thiamine [Vitamin B-1] 100 mg PO DAILY #14 tab Continue LORazepam 2 mg PO TID PRN PRN Reason: Anxiety HYDROcodone/APAP 10-325MG [[place] 10-325] 1 tab PO Q6H PRN PRN Reason: Pain Discontinued Bumetanide [BUMEX] 2 mg PO BID Sacubitril/Valsartan [Entresto 24 mg-26 mg Tablet] 1 tab PO BID Empagliflozin [Jardiance] 10 mg PO DAILY Discharge Medication List HYDROcodone/APAP 10-325MG [[place] 10-325] 1 tab PO Q6H PRN 07/19/24 [History] LORazepam 2 mg PO TID PRN 07/19/24 [History] Apixaban [Eliquis] 5 mg PO BID #60 tab 07/25/24 [Rx] Aspirin 81 mg PO DAILY #30 tab 07/25/24 [Rx] Atorvastatin [Lipitor] 40 mg PO DAILY #30 tab 07/25/24 [Rx] Bumetanide [BUMEX] 1 mg PO DAILY #30 tab 07/25/24 [Rx] Dapagliflozin Propanediol [Farxiga] 10 mg PO DAILY #30 tab 07/25/24 [Rx] Lactulose [Cephulac] 20 gm PO TID #2700 ml 07/25/24 [Rx] Levofloxacin [Levaquin] 500 mg PO Q24H #3 tab 07/25/24 [Rx] Metoprolol Tartrate [Lopressor] 25 mg PO BID #60 tab 07/25/24 [Rx] Sacubitril/Valsartan [Entresto 24 mg-26 mg Tablet] 1 each PO BID #60 tab 07/25/24 [Rx] Thiamine [Vitamin B-1] 100 mg PO DAILY #14 tab 07/25/24 [Rx] Follow up Appointment(s)/Referral(s): Aging,[place] [facility] [NON-STAFF] - 1 Week None,Stated [Primary Care Provider] - 1-2 days (PLease schedule an appointment with a primary care physician) Discharge/Stand Alone Forms: AA Meetings [place], Who Do I Call?, Community Resources, Outpatient Counseling, Inp Substance Abuse Facilities, Personal [place] Discharge Disposition: HOME SELF-CARE
[2024-07-26] MEDS ORDERED: LEVOFLOXACIN 500 MG TAB PO SCH (09:00)
== END 2024-07-25 17:29 | disposition home or self-care (01) | DRG 896 ==
LOC: EC 17:35 → 2SICU 20:32 → 3SCARD 07-23 17:58
PROVIDERS: ADMIT Internal Medicine; ATTEND Internal Medicine
PROC: 03HC33Z Insertion of Infusion Device into Left Radial Artery, Percutaneous Approach (ICD-10-PCS; principal; 2024-07-20)
DX: F10.231 Alcohol dependence with withdrawal delirium (principal); G93.41 Metabolic encephalopathy; I21.A1 Myocardial infarction type 2; J96.01 Acute respiratory failure with hypoxia; I50.23 Acute on chronic systolic (congestive) heart failure; J15.1 Pneumonia due to Pseudomonas; J69.0 Pneumonitis due to inhalation of food and vomit; D61.818 Other pancytopenia; E87.1 Hypo-osmolality and hyponatremia; I42.6 Alcoholic cardiomyopathy; I48.19 Other persistent atrial fibrillation; E72.20 Disorder of urea cycle metabolism, unspecified; J44.1 Chronic obstructive pulmonary disease with (acute) exacerbation; G40.89 Other seizures; J44.0 Chronic obstructive pulmonary disease with (acute) lower respiratory infection; K76.82 Hepatic encephalopathy; E78.5 Hyperlipidemia, unspecified; E83.42 Hypomagnesemia; F41.9 Anxiety disorder, unspecified; I11.0 Hypertensive heart disease with heart failure; I25.10 Atherosclerotic heart disease of native coronary artery without angina pectoris; I25.5 Ischemic cardiomyopathy; E87.6 Hypokalemia; F17.200 Nicotine dependence, unspecified, uncomplicated; E11.9 Type 2 diabetes mellitus without complications; E86.1 Hypovolemia; I44.7 Left bundle-branch block, unspecified; J43.9 Emphysema, unspecified; K46.9 Unspecified abdominal hernia without obstruction or gangrene; Y90.0 Blood alcohol level of less than 20 mg/100 ml; I25.2 Old myocardial infarction; W19.XXXA Unspecified fall, initial encounter; Y92.009 Unspecified place in unspecified non-institutional (private) residence as the place of occurrence of the external cause; Z79.01 Long term (current) use of anticoagulants; Z79.84 Long term (current) use of oral hypoglycemic drugs; Z79.82 Long term (current) use of aspirin; Z79.899 Other long term (current) drug therapy; Z95.1 Presence of aortocoronary bypass graft; Z95.810 Presence of automatic (implantable) cardiac defibrillator
CPT/HCPCS: 36415; 36600; 70450; 71045; 72125; 72170; 80048; 80053; 80306; 80320; 81001; 82140; 82805; 83036; 83605; 83735; 84100; 84132; 84484; 85025; 85610; 85730; 87040; 87070; 87077; 87186; 87205; 87636; 93005; 93306; 94002; 94003; 94640; 96361; 96372; 96374; 96375; 96376; 99291

== ENCOUNTER 2024-07-29 00:46 | Inpatient (IN) | payer MEDICARE, OTHER ==
[2024-07-29] MEDS ORDERED: LORazepam 0.5 MG TAB PO PRN (00:50)
[2024-07-29] MEDS ORDERED: LORazepam 2 MG/ML INJ IV PRN ×3 (00:50)
[2024-07-29] MEDS ORDERED: LORazepam 1 MG TAB PO PRN ×2 (00:50)
--- NOTE | 2024-07-29 00:51 | ED ---
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 -: minute(s) Previous Visits for Alcohol Intoxication?: Yes Recent Trauma: Yes Associated Symptoms: denies other symptoms Treatments Prior to Arrival: none Chronic Alcohol Use: Yes - Related Data Home Medications Medication Instructions Recorded Confirmed HYDROcodone/APAP 10-325MG [Perdido 1 tab PO Q6H PRN 07/19/24 07/29/24 10-325] LORazepam 2 mg PO TID PRN 07/19/24 07/29/24 Sacubitril/Valsartan [Entresto 24 1 tab PO BID 07/29/24 07/29/24 mg-26 mg Tablet] Previous Rx's Medication Instructions Recorded Apixaban [Eliquis] 5 mg PO BID #60 tab 07/25/24 Aspirin 81 mg PO DAILY #30 tab 07/25/24 Atorvastatin [Lipitor] 40 mg PO DAILY #30 tab 07/25/24 Bumetanide [BUMEX] 1 mg PO DAILY #30 tab 07/25/24 Dapagliflozin Propanediol [Farxiga] 10 mg PO DAILY #30 tab 07/25/24 Lactulose [Cephulac] 20 gm PO TID #2700 ml 07/25/24 Levofloxacin [Levaquin] 500 mg PO Q24H #3 tab 07/25/24 Metoprolol Tartrate [Lopressor] 25 mg PO BID #60 tab 07/25/24 Thiamine [Vitamin B-1] 100 mg PO DAILY #14 tab 07/25/24 Allergies Allergy/AdvReac Type Severity Reaction Status Date / Time No Known Allergies Allergy Verified 07/29/24 08:43 Review of Systems ROS Statement: Those systems with pertinent positive or pertinent negative responses have been documented in the HPI. ROS Other: All systems not noted in ROS Statement are negative. Past Medical History Past Medical History: Atrial Fibrillation, Chest Pain / Angina, Heart Failure, COPD, Hypertension, Liver Disease, Myocardial Infarction ([place]), Respiratory Disorder, Syncope Additional Past Medical History / Comment(s): Home oxygen use@2-3L PRN COPD - says has oxygen at home but doesn't wear it, WA- patient reports having 3-4 WA's, + CABG -triple bypass scar, + AICD/PCCM "I have a machine inside that se nds all the info to my heart doctor" , Abdominal Hernia surgery x2, paracentesis as needed- last times was at [facility] about 3-4 months ago per patient Last Myocardial Infarction Date:: 1982 History of Any Multi-Drug Resistant Organisms: None Reported Past Surgical History: AICD, Cholecystectomy, Coronary Bypass/CABG, Heart Catheterization With Stent, Hernia Repair, Pacemaker Additional Past Surgical History / Comment(s): CABG, AICD/Pacemaker placed about 10 years ago per patient 07/19/24, Hernia repair abdominal x2 Past Anesthesia/Blood Transfusion Reactions: No Reported Reaction Date of Last Stent Placement:: 1982 Type of Cardiac Device: Permanent Pacemaker, AICD Device Placement Date:: 1982 Smoking Status: Current every day smoker - Past Family History Mother Family Medical History: Cancer Father Family Medical History: Cancer General Exam General appearance: alert, in no apparent distress Head exam: Present: atraumatic, normocephalic, normal inspection Eye exam: Present: normal appearance, PERRL, EOMI. Absent: scleral icterus, conjunctival injection, periorbital swelling ENT exam: Present: normal exam, mucous membranes moist Neck exam: Present: normal inspection. Absent: tenderness, meningismus, lymphadenopathy Respiratory exam: Present: normal lung sounds bilaterally. Absent: respiratory distress, wheezes, rales, rhonchi, stridor Cardiovascular Exam: Present: regular rate, normal rhythm, normal heart sounds. Absent: systolic murmur, diastolic murmur, rubs, gallop, clicks GI/Abdominal exam: Present: soft, normal bowel sounds. Absent: distended, tenderness, guarding, rebound, rigid Extremities exam: Present: normal inspection, full ROM, normal capillary refill. Absent: tenderness, pedal edema, joint swelling, calf tenderness Back exam: Present: normal inspection Neurological exam: Present: alert, oriented X3, CN II-XII intact Psychiatric exam: Present: normal affect, normal mood Skin exam: Present: warm, dry, intact, normal color. Absent: rash Course Vital Signs 07/29/24 07/29/24 07/29/24 00:47 01:56 03:05 Temperature 98.4 F Pulse Rate 84 92 71 Respiratory 18 14 18 Rate Blood Pressure 113/55 117/73 99/78 O2 Sat by Pulse 97 97 94 L Oximetry 07/29/24 07/29/24 07/29/24 03:47 04:38 05:35 Temperature Pulse Rate 80 78 71 Respiratory 18 18 18 Rate Blood Pressure 141/97 127/76 121/80 O2 Sat by Pulse 96 98 99 Oximetry 07/29/24 07/29/24 06:51 08:00 Temperature Pulse Rate 76 79 Respiratory 18 18 Rate Blood Pressure 119/67 114/79 O2 Sat by Pulse 97 97 Oximetry - Reevaluation(s) Reevaluation #1: 07/29/24 01:12 Records reviewed Reevaluation #2: 07/29/24 01:12 No recurrent syncopal event here in the ER Reevaluation #3: 07/29/24 02:53 Informed of results and questions answered Reevaluation #4: Was pt. sent in by a medical professional or institution (, PA, [employer]ILLERY OR [employer] G[employer] OBSERVER, urgent care, hospital, or usp...) When possible be specific @ -no Did you speak to anyone other than the patient for history (EMS, parent, family, police, friend...)? What history was obtained from this source @ -no Did you review nursing and triage notes (agree or disagree)? Why? @ -agree Are old charts reviewed (outside hosp., previous admission, EMS record, old EKG, old radiological studies, urgent care reports/EKG's, usp records)? Report findings @ -yes Differential Diagnosis (chest pain, altered mental status, abdominal pain women, abdominal pain men, vaginal bleeding, weakness, fever, dyspnea, syncope, headache, dizziness, GI bleed, back pain, seizure, CVA, palpatations, mental health, musculoskeletal)? @ -prior EKG interpreted by me (3pts min.). @ -yes X-rays interpreted by me (1pt min.). @ -yes negative for acute disease CT interpreted by me (1pt min.). @ -yes negative for acute disease U/S interpreted by me (1pt. min.). @ -no What testing was considered but not performed or refused? (CT, X-rays, U/S, labs)? Why? @ -none What meds were considered but not given or refused? Why? @ -none Did you discuss the management of the patient with other professionals (professionals i.e. , PA, ARTILLERY OR [employer] OBSERVER, lab, RT, psych nurse, social media marketing specialist, marketing research coordinator, teacher, mortgage loan officer originator, mattress spring encaser)? Give summary @ -no Was smoking cessation discussed for >3mins.? @ -no Was critical care preformed (if so, how long)? @ -no Were there social determinants of health that impacted care today? How? (Homelessness, low income, unemployed, alcoholism, drug addiction, transportation, low edu. Level, literacy, decrease access to med. care, long term, rehab)? @ -none Was there de-escalation of care discussed even if they declined (Discuss DNR or withdrawal of care, Hospice)? DNR status @ -no What co-morbidities impacted this encounter? (DM, HTN, Smoking, COPD, CAD, Cancer, CVA, ARF, Chemo, Hep., AIDS, mental health diagnosis, sleep apnea, morbid obesity)? @ -none Was patient admitted / discharged? Hospital course, mention meds given and route, prescriptions, significant lab abnormalities, going to OR and other pertinent info. @ - 59 male to admit for syncope versus seizure, patient has negative alcohol level abnormal electrolytes and will admit for further evaluation and monitoring monitoring of alcohol withdrawal Undiagnosed new problem with uncertain prognosis? @ -no Drug Therapy requiring intensive monitoring for toxicity (Heparin, Nitro, Insulin, Cardizem)? @ -no Were any procedures done? @ -no Diagnosis/symptom? @ -Alcohol withdrawal with electrode abnormalities Acute, or Chronic, or Acute on Chronic? @ -Acute Uncomplicated (without systemic symptoms) or Complicated (systemic symptoms)? @ -Complicated Side effects of treatment? @ -no Exacerbation, Progression, or Severe Exacerbation? @ -exacerbation Poses a threat to life or bodily function? How? (Chest pain, USA, [place], pneumonia, PE, COPD, DKA, ARF, appy, cholecystitis, CVA, Diverticulitis, Homicidal, Suicidal, threat to staff... and all critical care pts) @ -yes with alcohol withdrawal Reevaluation #5: Differential Syncope: Valvular disease, hypertrophic cardiomyopathy, pulmonary embolism, tamponade, tachycardia, bradycardia, [place], hypovolemia, hemorrhage, dissection, anemia, intracranial hemorrhage, seizure, hypoglycemia, carbon monoxide poisoning, this is not meant to be an all-inclusive list. - Consultations Consultation #1: Spoke with [facility] who agrees to admit this patient Medical Decision Making - Medical Decision Making 59 male to admit for syncope versus seizure, patient has negative alcohol level abnormal electrolytes and will admit for further evaluation and monitoring monitoring of alcohol withdrawal - Lab Data Result diagrams: 07/30/24 06:02 07/30/24 06:02 Lab Results 07/29/24 07/29/24 07/29/24 Range/Units 01:15 01:15 01:15 WBC 3.8 (3.8-10.6) k/uL RBC 3.35 L (4.30-5.90) m/uL Hgb 10.5 L (13.0-17.5) gm/dL Hct 32.6 L (39.0-53.0) % MCV 97.2 (80.0-100.0) fL MCH 31.2 (25.0-35.0) pg MCHC 32.1 (31.0-37.0) g/dL RDW 14.9 (11.5-15.5) % Plt Count 133 L (150-450) k/uL MPV 7.7 Neutrophils % 73 % Lymphocytes % 14 % Monocytes % 8 % Eosinophils % 1 % Basophils % 1 % Neutrophils # 2.8 (1.3-7.7) k/uL Lymphocytes # 0.5 L (1.0-4.8) k/uL Monocytes # 0.3 (0-1.0) k/uL Eosinophils # 0.1 (0-0.7) k/uL Basophils # 0.0 (0-0.2) k/uL Hypochromasia Slight PT 15.3 H (10.0-12.5) sec INR 1.5 H (<1.2) Sodium 131 L (137-145) mmol/L Potassium 2.7 L* (3.5-5.1) mmol/L Chloride 99 (98-107) mmol/L Carbon Dioxide 29 (22-30) mmol/L Anion Gap 3 mmol/L BUN 4 L (9-20) mg/dL Creatinine 0.49 L (0.66-1.25) mg/dL Est GFR (CKD-EPI)AfAm >90 (>60 ml/min/1.73 sqM) Est GFR (CKD-EPI)NonAf >90 (>60 ml/min/1.73 sqM) Glucose 104 H (74-99) mg/dL Calcium 8.6 (8.4-10.2) mg/dL Phosphorus 3.4 (2.5-4.5) mg/dL Magnesium 1.2 L (1.6-2.3) mg/dL Total Bilirubin 2.0 H (0.2-1.3) mg/dL AST 48 (17-59) U/L ALT 13 (4-49) U/L Alkaline Phosphatase 99 (38-126) U/L Total Protein 6.1 L (6.3-8.2) g/dL Albumin 3.0 L (3.5-5.0) g/dL Lipase 39 (23-300) U/L Serum Alcohol <10 mg/dL - EKG Data -: EKG Interpreted by Me (EKG is A-fib 79 QRS 131 QTc 443) - Radiology Data Radiology results: report reviewed (Brain C-spine chest and pelvis x-ray negative for traumatic injury), image reviewed Disposition Clinical Impression: Hypokalemia, Fall, Alcohol withdrawal, Altered mental status, Delirium due to general medical condition Disposition: ADMITTED IP TO THIS HOSP Condition: Fair Is patient prescribed a controlled substance at d/c from ED?: No Time of Disposition: 03:00
[2024-07-29] MEDS: SODIUM CHLORIDE 0.9% 1,000 ML IV STA ×2 (01:04→01:05)
[2024-07-29] MEDS: SODIUM CHLORIDE 0.9% 500 ML 500 ML IV STA (01:04)
[2024-07-29] MEDS: LORazepam 2 MG/ML INJ IV STA (01:05)
[2024-07-29 01:21] LABS: Basophils % (A) 1 %; Eosinophils # (A) 0.1 k/uL (0-0.7); Eosinophils % (A) 1 %; HCT 32.6 % (39.0-53.0); HGB 10.5 gm/dL (13.0-17.5); Hypochromasia Slight; Lymphocytes # (A) 0.5 k/uL (1.0-4.8); Lymphocytes % (A) 14 %; MCH 31.2 pg (25.0-35.0); MCHC 32.1 g/dL (31.0-37.0); MCV 97.2 fL (80.0-100.0); Mean Platelet Volume 7.7; Monocytes # (A) 0.3 k/uL (0-1.0); Monocytes % (A) 8 %; Neutrophils # (A) 2.8 k/uL (1.3-7.7); Neutrophils % (A) 73 %; Platelet Count 133 k/uL (150-450); RBC 3.35 m/uL (4.30-5.90); RDW 14.9 % (11.5-15.5); WBC 3.8 k/uL (3.8-10.6)
[2024-07-29 01:32] LABS: INR 1.5 (<1.2); Prothrombin Time 15.3 sec (10.0-12.5)
[2024-07-29 02:09] LABS: ALT 13 U/L (4-49); AST 48 U/L (17-59); African American GFR (CKD) >90 (>60 ml/min/1.73 sqM); Alcohol <10 mg/dL; Alkaline Phosphatase 99 U/L (38-126); Anion Gap 3 mmol/L; Blood Urea Nitrogen 4 mg/dL (9-20); Calcium 8.6 mg/dL (8.4-10.2); Carbon Dioxide 29 mmol/L (22-30); Chloride 99 mmol/L (98-107); Glucose 104 mg/dL (74-99); Lipase 39 U/L (23-300); Magnesium 1.2 mg/dL (1.6-2.3); Non-African American GFR(CKD) >90 (>60 ml/min/1.73 sqM); Phosphorus 3.4 mg/dL (2.5-4.5); Sodium 131 mmol/L (137-145); Total Protein 6.1 g/dL (6.3-8.2)
[2024-07-29 02:48] LABS: Potassium 2.7 mmol/L (3.5-5.1)
[2024-07-29] MEDS: MAGNESIUM OXIDE 400 MG TAB PO STA ×3 (03:18→15:25)
[2024-07-29] MEDS: POTASSIUM CHLORIDE ER 20 MEQ TAB.ER PO STA ×2 (03:20→03:22)
[2024-07-29] MEDS: MAGNESIUM SULFATE-D5W PMX 1 GM in DEXTROSE/WATER 1 100ML.BAG IVPB SCH (03:24)
[2024-07-29] MEDS: POTASSIUM CHLORIDE 20 MEQ in WATER FOR INJECTION 1 100ML.BAG IVPB STA (03:25)
[2024-07-29] MEDS: HYDROmorphone 0.5 MG/0.5 ML SYRINGE IVP STA (03:42)
--- NOTE | 2024-07-29 03:47 | CT ---
EXAM: CT Head Without Intravenous Contrast CLINICAL HISTORY: ITS.REASON CT Reason: fall TECHNIQUE: Axial computed tomography images of the head/brain without intravenous contrast. CTDI is 45.2 mGy and DLP is 1072 mGy-cm. This CT exam was performed using one or more of the following dose reduction techniques: automated exposure control, adjustment of the mA and/or kV according to patient size, and/or use of iterative reconstruction technique. COMPARISON: 07/19/2024 FINDINGS: Brain: No hemorrhage or mass effect. Senescent changes. Ventricles: No hydrocephalus. Bones/joints: Questionable left inferior orbital wall minimal fracture. Soft tissues: Left peritonsillar. Sinuses: Left maxillary sinus air fluid level. Mastoid air cells: Clear. IMPRESSION: No acute hemorrhage, hydrocephalus, or mass effect. Questionable left inferior orbital wall minimal fracture. Recommend CT of the face for confirmation. EXAM: CT Cervical Spine Without Intravenous Contrast CLINICAL HISTORY: ITS.REASON CT Reason: fall TECHNIQUE: Axial computed tomography images of the cervical spine without intravenous contrast. CTDI is 10.6 mGy and DLP is 350.1 mGy-cm. This CT exam was performed using one or more of the following dose reduction techniques: automated exposure control, adjustment of the mA and/or kV according to patient size, and/or use of iterative reconstruction technique. COMPARISON: No relevant prior studies available. FINDINGS: Vertebrae: No acute fracture. Discs/spinal canal/neural foramina: degenerative changes. Soft tissues: No prevertebral swelling. Mild to moderate left pleural effusion. COPD. IMPRESSION: No acute fracture or subluxation. Mild to moderate left pleural effusion. COPD.
--- NOTE | 2024-07-29 03:49 | XR ---
EXAM: XR Chest, 1 View CLINICAL HISTORY: ITS.REASON XR Reason: fall TECHNIQUE: Frontal view of the chest. COMPARISON: No relevant prior studies available. IMPRESSION: Cardiomegaly. Mild vascular congestion. Trace left effusion
--- NOTE | 2024-07-29 05:30 | XR ---
EXAM: XR Pelvis, 1 or 2 Views CLINICAL HISTORY: ITS.REASON XR Reason: fall TECHNIQUE: Frontal view of the pelvis. COMPARISON: Pelvis radiographs on 07/19/2024 FINDINGS: Bones/joints: No displaced fracture or dislocation identified. Joint space is maintained. No bony lesion. Soft tissues: Surgical clips in the left inguinal region. No radiopaque foreign body identified. Other: Vascular calcifications. IMPRESSION: No displaced fracture or dislocation identified.
[2024-07-29] MEDS ORDERED: MORPHINE SULFATE 4 MG/ML SYRINGE IV PRN (07:37)
[2024-07-29] MEDS ORDERED: ONDANSETRON 4 MG/2 ML VIAL IVP PRN (07:37)
[2024-07-29] MEDS ORDERED: NALOXONE 0.4 MG/ML 1 ML VIAL IV PRN (07:37)
[2024-07-29] MEDS: MAGNESIUM OXIDE 400 MG TAB PO SCH (09:10)
[2024-07-29] MEDS: SODIUM CHLORIDE 0.9% 1,000 ML IV SCH (09:10)
[2024-07-29] MEDS: LORazepam 1 MG TAB PO PRN (10:48)
[2024-07-29] MEDS: HYDROcodone/APAP 10-325MG 1 EACH TAB PO PRN (11:15)
[2024-07-29] MEDS: NICOTINE 21MG/24HR PATCH TRANSDERM SCH (11:15)
[2024-07-29 11:28] LABS: ALT 14 U/L (4-49); AST 49 U/L (17-59); African American GFR (CKD) >90 (>60 ml/min/1.73 sqM); Albumin 3.1 g/dL (3.5-5.0); Alkaline Phosphatase 94 U/L (38-126); Anion Gap 3 mmol/L; Blood Urea Nitrogen 3 mg/dL (9-20); Calcium 8.2 mg/dL (8.4-10.2); Carbon Dioxide 33 mmol/L (22-30); Chloride 97 mmol/L (98-107); Globulin 3.2 g/dL; Glucose 102 mg/dL (74-99); Non-African American GFR(CKD) >90 (>60 ml/min/1.73 sqM); Potassium 3.6 mmol/L (3.5-5.1); Sodium 133 mmol/L (137-145); Total Bilirubin 2.2 mg/dL (0.2-1.3); Total Protein 6.3 g/dL (6.3-8.2)
--- NOTE | 2024-07-29 14:02 | P.HPIM ---
History of Present Illness H&P Date: 07/29/24 History of present illness; patient is a 59-year-old gentleman past medical history significant for alcohol dependence, atrial fibrillation, CAD status post CABG, HFrEF status post AICD presented to the ER because of fall. Patient stated he was at home when while standing he passed out. Patient did hit his head, there was bruising around his eye. Patient did not lose control over the bowel or urine. Denied any lightheadedness or dizziness prior to passing out. There was no weakness of any extremity. Because of this passing out, patient brought to the ER Initial lab work done in the ER showed CBC 3.8, hemoglobin 10.5, platelet count 133, sodium 139, potassium 2.7, BUN 4, creatinine 0.49, magnesium 1.2, total bilirubin 2 AST 48, ALT 13 EKG done in the ER showed heart rate of 79, no ST segment elevation or depression seen, no T-wave inversions seen. Pelvic x-ray done showed no fracture Chest x-ray done in the ER showed cardiomegaly, mild pulmonary vascular congestion CT head done showed no acute intracranial process CT cervical spine done showed no acute fracture or subluxation Patient admitted to internal medicine service REVIEW OF SYSTEMS: CONSTITUTIONAL: No fever, no malaise, no fatigue. HEENT: No recent visual problems or hearing problems. Denied any sore throat. CARDIOVASCULAR: No chest pain, orthopnea, PND, no palpitations, no syncope. PULMONARY: No shortness of breath, no cough, no hemoptysis. GASTROINTESTINAL: No diarrhea, no nausea, no vomiting, no abdominal pain. NEUROLOGICAL: No headaches, no weakness, no numbness. HEMATOLOGICAL: Denies any bleeding or petechiae. GENITOURINARY: Denies any burning micturition, frequency, or urgency. MUSCULOSKELETAL/RHEUMATOLOGICAL: As mentioned above ENDOCRINE: Denies any polyuria or polydipsia. The rest of the 14-point review of systems is negative. PHYSICAL EXAMINATION: GENERAL: The patient is alert and oriented x3, chronically ill looking HEENT: Pupils are round and equally reacting to light. EOMI. No scleral icterus. No conjunctival pallor. Normocephalic, atraumatic. No pharyngeal erythema. No th yromegaly. CARDIOVASCULAR: S1 and S2 present. No murmurs, rubs, or gallops. PULMONARY: Chest is clear to auscultation, no wheezing or crackles. ABDOMEN: Soft, distended, normoactive bowel sounds. No palpable organomegaly. MUSCULOSKELETAL: No joint swelling or deformity. EXTREMITIES: No cyanosis, clubbing, or pedal edema. NEUROLOGICAL: Gross neurological examination did not reveal any focal deficits. SKIN: No rashes. Assessment and plan Fall Syncopal episode History of alcohol abuse History of alcohol withdrawal seizures Hyponatremia Hypomagnesemia Hyperbilirubinemia History of liver cirrhosis History of atrial fibrillation History of coronary artery disease History of hypertension History diabetes mellitus Monitor vital signs Monitor CBC Monitor CMP Continue telemetry monitoring Ordered EEG Ordered orthostatics Replace potassium Replace magnesium Resume home meds Labs and medication were reviewed.. Continue same treatment. Continue with symptomatic treatment. Resume home medication. Monitor labs and vitals. DVT and GI prophylaxis. Further recommendations as per clinical course of the patient Dictation was produced using [employer] dictation software. please excuse any grammatical, word or spelling errors. Past Medical History Past Medical History: Atrial Fibrillation, Chest Pain / Angina, Heart Failure, COPD, Hypertension, Liver Disease, Myocardial Infarction ([place]), Respiratory Disorder, Syncope Additional Past Medical History / Comment(s): Home oxygen use@2-3L PRN COPD - sa ys has oxygen at home but doesn't wear it, NV- patient reports having 3-4 NV's, + CABG -triple bypass scar, + AICD/PCCM "I have a machine inside that sends all the info to my heart doctor" , Abdominal Hernia surgery x2, paracentesis as needed- last times was at [facility] about 3-4 months ago per patient Last Myocardial Infarction Date:: 1982 History of Any Multi-Drug Resistant Organisms: None Reported Past Surgical History: AICD, Cholecystectomy, Coronary Bypass/CABG, Heart Catheterization With Stent, Hernia Repair, Pacemaker Additional Past Surgical History / Comment(s): CABG, AICD/Pacemaker placed about 10 years ago per patient 07/19/24, Hernia repair abdominal x2 Past Anesthesia/Blood Transfusion Reactions: No Reported Reaction Date of Last Stent Placement:: 1982 Type of Cardiac Device: Permanent Pacemaker, AICD Device Placement Date:: 1982 Past Psychological History: Anxiety Smoking Status: Current every day smoker Past Alcohol Use History: Occasional Past Drug Use History: Marijuana - Past Family History Mother Family Medical History: Cancer Father Family Medical History: Cancer Medications and Allergies Home Medications Medication Instructions Recorded Confirmed Type HYDROcodone/APAP 10-325MG [Echo 1 tab PO Q6H PRN 07/19/24 07/29/24 History 10-325] LORazepam 2 mg PO TID PRN 07/19/24 07/29/24 History Apixaban [Eliquis] 5 mg PO BID #60 tab 07/25/24 07/29/24 Rx Aspirin 81 mg PO DAILY #30 tab 07/25/24 07/29/24 Rx Atorvastatin [Lipitor] 40 mg PO DAILY #30 tab 07/25/24 07/29/24 Rx Bumetanide [BUMEX] 1 mg PO DAILY #30 tab 07/25/24 07/29/24 Rx Dapagliflozin Propanediol [Farxiga] 10 mg PO DAILY #30 tab 07/25/24 07/29/24 Rx Lactulose [Cephulac] 20 gm PO TID #2700 ml 07/25/24 07/29/24 Rx Levofloxacin [Levaquin] 500 mg PO Q24H #3 tab 07/25/24 07/29/24 Rx Metoprolol Tartrate [Lopressor] 25 mg PO BID #60 tab 07/25/24 07/29/24 Rx Thiamine [Vitamin B-1] 100 mg PO DAILY #14 tab 07/25/24 07/29/24 Rx Sacubitril/Valsartan [Entresto 24 1 tab PO BID 07/29/24 07/29/24 History mg-26 mg Tablet] Allergies Allergy/AdvReac Type Severity Reaction Status Date / Time No Known Allergies Allergy Verified 07/29/24 08:43 Physical Exam Vitals: Vital Signs Temp Pulse Pulse Resp BP BP Pulse Ox 07/29/24 10:02 77 16 07/29/24 09:03 98.0 F 77 16 122/70 100 07/29/24 08:00 79 18 114/79 97 07/29/24 06:51 76 18 119/67 97 07/29/24 05:35 71 18 121/80 99 07/29/24 04:38 78 18 127/76 98 07/29/24 03:47 80 18 141/97 96 07/29/24 03:05 71 18 99/78 94 L 07/29/24 01:56 92 14 117/73 97 07/29/24 00:47 98.4 F 84 18 113/55 97 Intake and Output 07/28/24 07/29/24 07/29/24 22:59 06:59 14:59 Other: Voiding Method Bedside Commode Weight 74.843 kg 74.843 kg Results CBC & Chem 7: 07/29/24 01:15 07/29/24 10:22 Labs: Abnormal Lab Results - Last 24 Hours (Table) 07/29/24 07/29/24 07/29/24 Range/Units 01:15 01:15 01:15 RBC 3.35 L (4.30-5.90) m/uL Hgb 10.5 L (13.0-17.5) gm/dL Hct 32.6 L (39.0-53.0) % Plt Count 133 L (150-450) k/uL Lymphocytes # 0.5 L (1.0-4.8) k/uL PT 15.3 H (10.0-12.5) sec INR 1.5 H (<1.2) Sodium 131 L (137-145) mmol/L Potassium 2.7 L* (3.5-5.1) mmol/L Chloride (98-107) mmol/L Carbon Dioxide (22-30) mmol/L BUN 4 L (9-20) mg/dL Creatinine 0.49 L (0.66-1.25) mg/dL Glucose 104 H (74-99) mg/dL Calcium (8.4-10.2) mg/dL Magnesium 1.2 L (1.6-2.3) mg/dL Total Bilirubin 2.0 H (0.2-1.3) mg/dL Total Protein 6.1 L (6.3-8.2) g/dL Albumin 3.0 L (3.5-5.0) g/dL 07/29/24 Range/Units 10:22 RBC (4.30-5.90) m/uL Hgb (13.0-17.5) gm/dL Hct (39.0-53.0) % Plt Count (150-450) k/uL Lymphocytes # (1.0-4.8) k/uL PT (10.0-12.5) sec INR (<1.2) Sodium 133 L (137-145) mmol/L Potassium (3.5-5.1) mmol/L Chloride 97 L (98-107) mmol/L Carbon Dioxide 33 H (22-30) mmol/L BUN 3 L (9-20) mg/dL Creatinine 0.50 L (0.66-1.25) mg/dL Glucose 102 H (74-99) mg/dL Calcium 8.2 L (8.4-10.2) mg/dL Magnesium (1.6-2.3) mg/dL Total Bilirubin 2.2 H (0.2-1.3) mg/dL Total Protein (6.3-8.2) g/dL Albumin 3.1 L (3.5-5.0) g/dL Thrombosis Risk Factor Assmnt - Choose All That Apply Each Factor Represents 1 point: Age 41-60 years Thrombosis Risk Factor Assessment Total Risk Factor Score: 1 Thrombosis Risk Factor Assessment Level: Low Risk
[2024-07-29] MEDS: ASPIRIN 81 MG PO SCH (15:25)
[2024-07-29] MEDS: LACTULOSE 20 GM/30 ML CUP PO SCH (15:25)
[2024-07-29] MEDS: APIXABAN 5 MG TAB PO SCH (21:03)
[2024-07-29] MEDS: METOPROLOL TARTRATE 25 MG TAB PO SCH (21:03)
[2024-07-29] MEDS: SACUBITRIL/VALSARTAN 24 MG-26 MG TABLET PO SCH (21:03)
[2024-07-30] MEDS: BUMETANIDE 1 MG TAB PO SCH (08:14)
[2024-07-30] MEDS: DAPAGLIFLOZIN PROPANEDIOL 10 MG TABLET PO SCH (08:14)
[2024-07-30] MEDS: ATORVASTATIN 40 MG TAB PO SCH (08:14)
[2024-07-30] MEDS: THIAMINE 100 MG TAB PO SCH (09:23)
[2024-07-30 09:56] LABS: Basophils # (A) 0.04 X 10*3/uL (0.00-0.10); Basophils % (A) 0.8 %; Eosinophils # (A) 0.09 X 10*3/uL (0.04-0.35); Eosinophils % (A) 1.9 %; HGB 9.9 g/dL (13.0-17.0); Lymphocytes # (A) 0.61 X 10*3/uL (0.90-5.00); Lymphocytes % (A) 12.8 %; MCH 30.7 pg (27.0-32.0); MCHC 30.9 g/dL (32.0-37.0); MCV 99.1 FL (80.0-97.0); Mean Platelet Volume 11.3 FL (9.5-12.2); Monocytes # (A) 0.53 X 10*3/uL (0.20-1.00); Monocytes % (A) 11.1 %; NRBC Per 100 WBC 0 X 10*3/uL (0.00-0.01); Neutrophils # (A) 3.47 X 10*3/uL (1.80-7.70); Platelet Count 121 X 10*3/uL (140-440); RBC 3.23 X 10*6/uL (4.40-5.60); RDW 15.3 % (11.5-14.5); WBC 4.76 X 10*3/uL (4.50-10.00)
[2024-07-30 11:55] LABS: ALT 11 U/L (10-49); AST 42 U/L (14-35); Albumin 3.1 g/dL (3.8-4.9); Albumin/Globulin Ratio 1.11 Ratio (1.60-3.17); Alkaline Phosphatase 114 U/L (41-126); BUN/Creat Ratio 9.17 Ratio (12.00-20.00); Blood Urea Nitrogen 5.5 mg/dL (9.0-27.0); Calcium 8.3 mg/dL (8.7-10.3); Carbon Dioxide 28.4 mmol/L (21.6-31.8); Chloride 99 mmol/L (96-109); Globulin 2.8 g/dL (1.6-3.3); Glucose 85 mg/dL (70-110); Potassium 4.2 mmol/L (3.5-5.5); Sodium 133 mmol/L (135-145); Total Bilirubin 1.6 mg/dL (0.3-1.2); Total Protein 5.9 g/dL (6.2-8.2)
--- NOTE | 2024-07-30 13:59 | P.PN ---
Subjective Progress Note Date: 07/30/24 patient is a 59-year-old gentleman past medical history significant for alcohol dependence, atrial fibrillation, CAD status post CABG, HFrEF status post AICD presented to the ER because of fall. Patient stated he was at home when while standing he passed out. Patient did hit his head, there was bruising around his eye. Patient did not lose control over the bowel or urine. Denied any lightheadedness or dizziness prior to passing out. There was no weakness of any extremity. Because of this passing out, patient brought to the ER Initial lab work done in the ER showed CBC 3.8, hemoglobin 10.5, platelet count 133, sodium 139, potassium 2.7, BUN 4, creatinine 0.49, magnesium 1.2, total bilirubin 2 AST 48, ALT 13 EKG done in the ER showed heart rate of 79, no ST segment elevation or depression seen, no T-wave inversions seen. Pelvic x-ray done showed no fracture Chest x-ray done in the ER showed cardiomegaly, mild pulmonary vascular congestion CT head done showed no acute intracranial process CT cervical spine done showed no acute fracture or subluxation Patient admitted to internal medicine service 07/30. Patient seen and examined. Complaining of swelling of lower extremities. Denies any shortness of breath. REVIEW OF SYSTEMS: CONSTITUTIONAL: No fever, no malaise,. CARDIOVASCULAR: No chest pain, no palpitations, no syncope. PULMONARY: No shortness of breath, no cough, GASTROINTESTINAL: No diarrhea, no nausea, no vomiting, no abdominal pain. NEUROLOGICAL: No headaches, no weakness, PHYSICAL EXAMINATION: GENERAL: The patient is alert and oriented x3, not in any acute distress. Well developed, well nourished. HEENT: Pupils are round and equally reacting to light. EOMI. No scleral icterus. No conjunctival pallor. Normocephalic, atraumatic. No pharyngeal erythema. No thyromegaly. CARDIOVASCULAR: S1 and S2 present. No murmurs, rubs, or gallops. PULMONARY: Chest is clear to auscultation, no wheezing or crackles. ABDOMEN: Soft, nontender, nondistended, normoactive bowel sounds. No palpable organomegaly. MUSCULOSKELETAL: No joint swelling or deformity. EXTREMITIES: 1+ pitting edema lower extremities bilaterally NEUROLOGICAL: Gross neurological examination did not reveal any focal deficits. SKIN: No rashes. Assessment and plan Fall Syncopal episode History of alcohol abuse History of alcohol withdrawal seizures Hyponatremia Hypomagnesemia Hyperbilirubinemia History of liver cirrhosis History of atrial fibrillation History of coronary artery disease History of hypertension History diabetes mellitus Monitor vital signs Monitor CBC Monitor CMP Continue telemetry monitoring Ordered EEG Monitor orthostatics Continue Farxiga Continue oral Bumex Continue aspirin, Lipitor, Eliquis Continue CIWA protocol PT and OT consulted Labs and medication were reviewed.. Continue same treatment. Continue with symptomatic treatment. Resume home medication. Monitor labs and vitals. DVT and GI prophylaxis. Further recommendations as per clinical course of the patient Dictation was produced using [employer] dictation software. please excuse any grammatical, word or spelling errors. Objective - Vital Signs Vital signs: Vital Signs Temp 98.0 F 07/30/24 13:04 Pulse 55 L 07/30/24 13:04 Resp 17 07/30/24 13:04 BP 108/69 07/30/24 13:04 Pulse Ox 100 07/30/24 13:04 FiO2 Intake & Output 07/29/24 07/30/24 07/30/24 18:59 06:59 18:59 Intake Total 540 1200 Output Total 400 Balance 540 1200 -400 Weight 74.843 kg Intake: Oral 540 1200 Output: Urine 400 Other: Voiding Method Bedside Commode Bedside Commode # Voids 1 1 # Bowel Movements 1 - Labs CBC & Chem 7: 07/30/24 06:02 07/30/24 06:02 Labs: Abnormal Lab Results - Last 24 Hours (Table) 07/29/24 07/30/24 07/30/24 Range/Units 10:22 06:02 06:02 RBC 3.23 L (4.40-5.60) X 10*6/uL Hgb 9.9 L (13.0-17.0) g/dL Hct 32.0 L (39.6-50.0) % MCV 99.1 H (80.0-97.0) FL MCHC 30.9 L (32.0-37.0) g/dL RDW 15.3 H (11.5-14.5) % Plt Count 121 L (140-440) X 10*3/uL Lymphocytes # 0.61 L (0.90-5.00) X 10*3/uL Sodium 133 L (135-145) mmol/L BUN 5.5 L (9.0-27.0) mg/dL BUN/Creatinine Ratio 9.17 L (12.00-20.00) Ratio Calcium 8.3 L (8.7-10.3) mg/dL Magnesium 1.5 L (1.6-2.3) mg/dL Total Bilirubin 1.6 H (0.3-1.2) mg/dL AST 42 H (14-35) U/L Total Protein 5.9 L (6.2-8.2) g/dL Albumin 3.1 L (3.8-4.9) g/dL Albumin/Globulin Ratio 1.11 L (1.60-3.17) Ratio
[2024-07-30] MEDS: PANTOPRAZOLE 40 MG/10 ML VIAL IVP SCH (22:53)
[2024-07-31 08:36] LABS: Basophils # (A) 0.04 X 10*3/uL (0.00-0.10); Basophils % (A) 0.7 %; Eosinophils # (A) 0.08 X 10*3/uL (0.04-0.35); Eosinophils % (A) 1.4 %; HCT 33.8 % (39.6-50.0); HGB 10.5 g/dL (13.0-17.0); Lymphocytes # (A) 0.97 X 10*3/uL (0.90-5.00); Lymphocytes % (A) 17.2 %; MCH 31.5 pg (27.0-32.0); MCHC 31.1 g/dL (32.0-37.0); MCV 101.5 FL (80.0-97.0); Mean Platelet Volume 12.6 FL (9.5-12.2); Monocytes # (A) 0.45 X 10*3/uL (0.20-1.00); NRBC Per 100 WBC 0 X 10*3/uL (0.00-0.01); Neutrophils # (A) 4.09 X 10*3/uL (1.80-7.70); Neutrophils % (A) 72.5 %; Platelet Count 121 X 10*3/uL (140-440); RBC 3.33 X 10*6/uL (4.40-5.60); RDW 15.2 % (11.5-14.5); WBC 5.64 X 10*3/uL (4.50-10.00)
[2024-07-31 08:46] LABS: ALT 13 U/L (10-49); AST 44 U/L (14-35); Albumin 3.3 g/dL (3.8-4.9); Albumin/Globulin Ratio 1.18 Ratio (1.60-3.17); Alkaline Phosphatase 144 U/L (41-126); Blood Urea Nitrogen 7.8 mg/dL (9.0-27.0); Calcium 8.3 mg/dL (8.7-10.3); Carbon Dioxide 28.6 mmol/L (21.6-31.8); Chloride 98 mmol/L (96-109); Globulin 2.8 g/dL (1.6-3.3); Glucose 97 mg/dL (70-110); Potassium 3.4 mmol/L (3.5-5.5); Sodium 135 mmol/L (135-145); Total Bilirubin 1.5 mg/dL (0.3-1.2); Total Protein 6.1 g/dL (6.2-8.2)
--- NOTE | 2024-07-31 12:59 | P.CRDCN ---
History of Present Illness Consult date: 07/31/24 Consult reason: chest pain History of present illness: This is a 59-year-old male patient of Dr. Kruse at [facility] with past medical history of COPD, coronary artery disease with previous three-vessel CABG approximately 25 years ago and cardiac catheterization with stent placement per patient, ischemic cardiomyopathy status post AICD, ventricular tachycardia status post VT ablation, history of paracentesis, persistent atrial fibril lation, hypertension, PAD with prior bifemoral bypass in 2012, previous carotid endarterectomy in March 2020, previous left atrial appendage thrombus which improved after anticoagulation, tobacco use and dependence alcohol abuse. Patient has had a number of admissions at [facility] with previous workup in February 2022 showing EF of 40%. Patient had a recent hospitalization and seen by cardiology on 07/20 as he had a fall at home and concern was for seizure. Patient was attempting to withdraw from alcohol. He was intubated and sedated in the emergency center at that time and was started on IV Ativan and Versed drip. We were on consult for A-fib with RVR, type II ID. Patient was discharged home on 07/25. Patient presented to the hospital due to unresponsive episode with altered mental status and concern for seizures. Patient states that he was doing fine at home until he passed out. No alcohol intake when he was at home between admissions. He has lower extremity edema, more than normal. He states he had some chest pain yesterday after his fall but he has none now. Blood pressure 113/72, heart rate in the 60s and 70s, pulse ox 98% on 4 L nasal cannula. Patient has been started on the CIWA protocol. EKG: Atrial fibrillation left bundle branch block 79 bpm Chest x-ray: Cardiomegaly. Mild vascular congestion. Trace left effusion. Pelvis x-ray: No fracture or dislocation. CT head and cervical spine: No acute findings on CT of the brain. No acute fracture or subluxation on the cervical spine. Laboratory studies: WBC 5.6, hemoglobin 10.5, platelet count 121. Troponin negative x 3. Sodium 133, potassium 4.2, BUN 5.5 and creatinine 0.6. Magnesium 1.5. Total bilirubin 1.6, AST 42. Serum alcohol less than 10. Home cardiac medications: Eliquis 5 mg twice daily, aspirin 81 mg daily, Lipitor 40 mg daily, Bumex 1 mg daily, Lopressor 25 mg twice daily, Entresto 24-26 mg 1 tablet twice daily. Echocardiogram performed on 07/19/2024 revealed EF of 25 to 30%, severe pulmonary hypertension, mild to moderate tricuspid regurgitation, mild mitral and aortic regurgitation, inferior wall hypokinesis secondary to prior ID. Cardiac CT performed at [facility] on 12/21/2023 revealed focal calcified plaque at the origin of the VELAZQUEZ graft causing 25 to 50% stenosis. The remainder of the graft shows no disease. The anastomosis to the LAD is widely patent. Runoff down the LAD shows small focal calcified plaques causing less than 50% stenosis. Vein graft to obtuse marginal branches widely patent showing no disease. The anastomosis of the [place] vessel is widely patent. Small focal calcified plaques in the distal runoff causing less than 50% st enosis. Vein graft to the posterior lateral branch has few scattered calcified plaques causing less than 25% stenosis. Anastomosis to the PLB is widely patent. Severely diseased [place] vessels. Dense calcification precludes visual estimation of stenosis severity. Appearance of total occlusion in the mid RCA. Moderate calcification throughout the aorta. Dual-chamber device leads noted. MPI performed at [facility] 12/19/2023 revealed extensive myocardial infarction/scar in the inferior lateral and posterior lateral muñiz encompassing approximately 28% of the total LV myocardium and similar to prior study in 2019. No segmental locations of reversible tracer perfusion defects. Significantly enlarged left ventricle chamber with global hypokinesis and akinesis in the inferior lateral and posterior lateral muñiz with EF 25 to 30%. Review Of Systems: At the time of my exam: CONSTITUTIONAL: Denies fever or chills. HEENT: Denies blurred vision, vision changes, or eye pain. Denies hemoptysis CARDIOVASCULAR: Denies chest pain. Denies orthopnea. Denies PND. Denies palpitat ions RESPIRATORY: Denies shortness of breath. GASTROINTESTINAL: Denies abdominal pain. Denies nausea or vomiting. HEMATOLOGIC: Denies bleeding disorders. GENITOURINARY: Denies any blood in urine. SKIN: Denies puritis. Denies rash. Physical examination: Gen: This is 59-year-old male in no acute distress VS: reviewed HEENT: Head is normocephalic. Ecchymosis left orbital area, pupils equal, roun d. Sclerae is anicteric. NECK: Supple. No JVD. LUNGS: Clear to auscultation. No wheezes or rhonchi. No intercostal retractions. HEART: Regular rate and rhythm. No murmur. ABDOMEN: Soft No tenderness. + Significant abdominal hernia right lower area without pain. EXTREMITIES: 2+ LE edema with chronic dark skin changes bilat. No calf tenderness. NEUROLOGICAL: Patient is awake, alert and oriented x3. Assessment: Atypical chest pain, acute coronary syndrome ruled out Syncopal episode, suspected seizure Electrolyte abnormalities with hyponatremia and hypomagnesemia status post replacement Bicytopenia with anemia and thrombocytopenia History of coronary artery disease with previous CABG and cardiac catheterization Hypertension Persistent atrial fibrillation Ischemic cardiomyopathy status post AICD Chronic HFrEF Severe pulmonary hypertension Valvular heart disease with mild to moderate tricuspid regurgitation, mild mitral and aortic regurgitation COPD Alcohol abuse Plan: Continue patient's home cardiac medications Interrogate AICD No need to repeat echocardiogram as this was done on 07/19 No plan for stress test or cardiac catheterization at this time Likely discharge in the next 24 to 48 hours Further recommendations to follow based upon clinical course Thank you kindly for this consultation. Nurse practitioner note has been reviewed, I agree with documented findings and plan of care. Patient was seen and examined. Past Medical History Past Medical History: Atrial Fibrillation, Chest Pain / Angina, Heart Failure, COPD, Hypertension, Liver Disease, Myocardial Infarction (ID), Respiratory Disorder, Syncope Additional Past Medical History / Comment(s): Home oxygen use@2-3L PRN COPD - says has oxygen at home but doesn't wear it, ID- patient reports having 3-4 ID's, + CABG -triple bypass scar, + AICD/PCCM "I have a machine inside that sends all the info to my heart doctor" , Abdominal Hernia surgery x2, paracentesis as needed- last times was at [facility] about 3-4 months ago per patient Last Myocardial Infarction Date:: 1982 History of Any Multi-Drug Resistant Organisms: None Reported Past Surgical History: AICD, Cholecystectomy, Coronary Bypass/CABG, Heart Catheterization With Stent, Hernia Repair, Pacemaker Additional Past Surgical History / Comment(s): CABG, AICD/Pacemaker placed about 10 years ago per patient 07/19/24, Hernia repair abdominal x2 Past Anesthesia/Blood Transfusion Reactions: No Reported Reaction Date of Last Stent Placement:: 1982 Type of Cardiac Device: Permanent Pacemaker, AICD Device Placement Date:: 1982 Smoking Status: Current every day smoker - Past Family History Mother Family Medical History: Cancer Father Family Medical History: Cancer Medications and Allergies Home Medications Medication Instructions Recorded Confirmed Type HYDROcodone/APAP 10-325MG [[place] 1 tab PO Q6H PRN 07/19/24 07/29/24 History 10-325] LORazepam 2 mg PO TID PRN 07/19/24 07/29/24 History Apixaban [Eliquis] 5 mg PO BID #60 tab 07/25/24 07/29/24 Rx Aspirin 81 mg PO DAILY #30 tab 07/25/24 07/29/24 Rx Atorvastatin [Lipitor] 40 mg PO DAILY #30 tab 07/25/24 07/29/24 Rx Bumetanide [BUMEX] 1 mg PO DAILY #30 tab 07/25/24 07/29/24 Rx Dapagliflozin Propanediol [Farxiga] 10 mg PO DAILY #30 tab 07/25/24 07/29/24 Rx Lactulose [Cephulac] 20 gm PO TID #2700 ml 07/25/24 07/29/24 Rx Levofloxacin [Levaquin] 500 mg PO Q24H #3 tab 07/25/24 07/29/24 Rx Metoprolol Tartrate [Lopressor] 25 mg PO BID #60 tab 07/25/24 07/29/24 Rx Thiamine [Vitamin B-1] 100 mg PO DAILY #14 tab 07/25/24 07/29/24 Rx Sacubitril/Valsartan [Entresto 24 1 tab PO BID 07/29/24 07/29/24 History mg-26 mg Tablet] Allergies Allergy/AdvReac Type Severity Reaction Status Date / Time No Known Allergies Allergy Verified 07/29/24 08:43 Physical Exam Vitals: Vital Signs Temp Pulse Resp BP Pulse Ox 07/31/24 08:32 98 07/31/24 07:11 97.7 F 76 16 113/72 07/31/24 04:39 98/66 07/31/24 02:00 98.6 F 65 12 91/52 99 07/30/24 19:56 98.5 F 67 12 122/75 100 07/30/24 13:04 98.0 F 55 L 17 108/69 100 Intake and Output 10/07/31/24 07/31/24 22:59 06:59 14:59 Intake Total 540 720 Output Total 1000 Balance 540 -280 Intake: Oral 540 720 Output: Urine 1000 Other: Voiding Method Bedside Commode Urinal Weight 73 kg Results 07/31/24 04:21 07/31/24 04:21 Cardiac Enzymes 07/30/24 07/30/24 07/31/24 Range/Units 06:02 22:24 01:35 AST 42 H (14-35) U/L Troponin I 0.032 0.032 (0.000-0.034) ng/mL 07/31/24 Range/Units 04:21 AST (14-35) U/L Troponin I 0.030 (0.000-0.034) ng/mL CBC 07/30/24 07/31/24 Range/Units 06:02 04:21 WBC 4.76 5.64 (4.50-10.00) X 10*3/uL RBC 3.23 L 3.33 L (4.40-5.60) X 10*6/uL Hgb 9.9 L 10.5 L (13.0-17.0) g/dL Hct 32.0 L 33.8 L (39.6-50.0) % Plt Count 121 L 121 L (140-440) X 10*3/uL Comprehensive Metabolic Panel 07/30/24 Range/Units 06:02 Sodium 133 L (135-145) mmol/L Potassium 4.2 (3.5-5.5) mmol/L Chloride 99 (96-109) mmol/L Carbon Dioxide 28.4 (21.6-31.8) mmol/L BUN 5.5 L (9.0-27.0) mg/dL Creatinine 0.6 (0.6-1.5) mg/dL Glucose 85 (70-110) mg/dL Calcium 8.3 L (8.7-10.3) mg/dL AST 42 H (14-35) U/L ALT 11 (10-49) U/L Alkaline Phosphatase 114 (41-126) U/L Total Protein 5.9 L (6.2-8.2) g/dL Albumin 3.1 L (3.8-4.9) g/dL Current Medications Generic Name Dose Route Start Last Admin Trade Name Freq PRN Reason Stop Dose Admin Hydrocodone Bitart/Acetaminophen 1 each 07/29/24 11:01 07/31/24 04:46 Hydrocodone/Apap 10-325mg 1 Each Tab PO 1 each Q6HR PRN Administration Muscle Pain Apixaban 5 mg 07/29/24 21:00 07/30/24 21:26 Apixaban 5 Mg Tab PO 5 mg BID JAYSHREE Administration Protocol Aspirin 81 mg 07/29/24 14:00 07/30/24 08:14 Aspirin 81 Mg PO 81 mg DAILY JAYSHREE Administration Atorvastatin Calcium 40 mg 07/30/24 09:00 07/30/24 08:14 Atorvastatin 40 Mg Tab PO 40 mg DAILY JAYSHREE Administration Bumetanide 1 mg 07/30/24 09:00 07/30/24 08:14 Bumetanide 1 Mg Tab PO 1 mg DAILY JAYSHREE Administration Dapagliflozin 10 mg 07/30/24 09:00 07/30/24 08:14 Dapagliflozin Propanediol 10 Mg Tablet PO 10 mg DAILY JAYSHREE Administration Lactulose 20 gm 07/29/24 16:00 07/30/24 21:26 Lactulose 20 Gm/30 Ml Cup PO 20 gm TID JAYSHREE Administration Lorazepam 2 mg 07/29/24 00:50 Lorazepam 1 Mg Tab PO Q3HR PRN [place] 8 To 9 Lorazepam 2 mg 07/29/24 00:50 Lorazepam 1 Mg Tab PO Q2HR PRN [place] 10 or greater Lorazepam 1 mg 07/29/24 00:50 07/29/24 10:48 Lorazepam 1 Mg Tab PO 1 mg Q4HR PRN Administration [place] 6 To 7 Lorazepam 0.5 mg 07/29/24 00:50 Lorazepam 0.5 Mg Tab PO Q4HR PRN [place] 4 To 5 Lorazepam 1 mg 07/29/24 00:50 Lorazepam 2 Mg/Ml Inj IV Q2HR PRN CIWA 8 or 9 Lorazepam 1 mg 07/29/24 00:50 Lorazepam 2 Mg/Ml Inj IV Q1HR PRN CIWA 10 to 15 Magnesium Oxide 400 mg 07/29/24 09:00 07/30/24 21:26 Magnesium Oxide 400 Mg Tab PO 400 mg TID JAYSHREE Administration Metoprolol Tartrate 25 mg 07/29/24 21:00 07/30/24 21:26 Metoprolol Tartrate 25 Mg Tab PO 25 mg BID JAYSHREE Administration Morphine Sulfate 4 mg 07/29/24 07:37 Morphine Sulfate 4 Mg/Ml Syringe IV Q4HR PRN Severe Pain (Scale 7 to 10) Naloxone HCl 0.2 mg 07/29/24 07:37 Naloxone 0.4 Mg/Ml 1 Ml Vial IV Q2M PRN Opioid Reversal Nicotine 1 patch 07/29/24 11:15 07/30/24 08:15 Nicotine 21mg/24hr Patch TRANSDERM 1 patch DAILY JAYSHREE Administration Ondansetron HCl 4 mg 07/29/24 07:37 Ondansetron 4 Mg/2 Ml Vial IVP Q8HR PRN Nausea And Vomiting Pantoprazole Sodium 40 mg 07/30/24 22:00 07/30/24 22:53 Pantoprazole 40 Mg/10 Ml Vial IVP 40 mg DAILY JAYSHREE Administration Sacubitril/Valsartan 1 each 07/29/24 21:00 07/30/24 21:26 Sacubitril/Valsartan 24 Mg-26 Mg Tablet PO 1 each BID JAYSHREE Administration Thiamine HCl 100 mg 07/30/24 09:00 07/30/24 09:23 Thiamine 100 Mg Tab PO 100 mg DAILY JAYSHREE Administration Intake and Output 07/30/24 07/31/24 07/31/24 22:59 06:59 14:59 Intake Total 540 720 Output Total 1000 Balance 540 -280 Intake: Oral 540 720 Output: Urine 1000 Other: Voiding Method Bedside Commode Urinal Weight 73 kg 07/31/24 04:21 07/30/24 06:02
[2024-07-31] MEDS: FUROSEMIDE 10 MG/ML 4 ML VIAL IV SCH (13:22)
--- NOTE | 2024-07-31 15:38 | P.GSHP ---
History of Present Illness H&P Date: 07/31/24 Chief Complaint: Painful elongated dystrophic mycotic nails bilateral feet History of present illness; patient is a 59-year-old gentleman past medical history significant for alcohol dependence, atrial fibrillation, CAD status post CABG, HFrEF status post AICD presented to the ER because of fall. Patient stated he was at home when while standing he passed out. Patient did hit his head, there was bruising around his eye. Patient did not lose control over the bowel or urine. Denied any lightheadedness or dizziness prior to passing out. There was no weakness of any extremity. Because of this passing out, patient brought to the ERPatient has patient is being seen at request of the attending for podiatric care patient states his nails are sore with shoes and ambulation Past Medical History Past Medical History: Atrial Fibrillation, Chest Pain / Angina, Heart Failure, COPD, Hypertension, Liver Disease, Myocardial Infarction (PA), Respiratory Disorder, Syncope Additional Past Medical History / Comment(s): Home oxygen use@2-3L PRN COPD - says has oxygen at home but doesn't wear it, PA- patient reports having 3-4 PA's, + CABG -triple bypass scar, + AICD/PCCM "I have a machine inside that sends all the info to my heart doctor" , Abdominal Hernia surgery x2, paracentesis as needed- last times was at [facility] about 3-4 months ago per patient Last Myocardial Infarction Date:: 1982 History of Any Multi-Drug Resistant Organisms: None Reported Past Surgical History: AICD, Cholecystectomy, Coronary Bypass/CABG, Heart Catheterization With Stent, Hernia Repair, Pacemaker Additional Past Surgical History / Comment(s): CABG, AICD/Pacemaker placed about 10 years ago per patient 07/19/24, Hernia repair abdominal x2 Past Anesthesia/Blood Transfusion Reactions: No Reported Reaction Date of Last Stent Placement:: 1982 Type of Cardiac Device: Permanent Pacemaker, AICD Device Placement Date:: 1982 Smoking Status: Current every day smoker - Past Family History Mother Family Medical History: Cancer Father Family Medical History: Cancer Medications and Allergies Home Medications Medication Instructions Recorded Confirmed Type HYDROcodone/APAP 10-325MG [[place] 1 tab PO Q6H PRN 07/19/24 07/29/24 History 10-325] LORazepam 2 mg PO TID PRN 07/19/24 07/29/24 History Apixaban [Eliquis] 5 mg PO BID #60 tab 07/25/24 07/29/24 Rx Aspirin 81 mg PO DAILY #30 tab 07/25/24 07/29/24 Rx Atorvastatin [Lipitor] 40 mg PO DAILY #30 tab 07/25/24 07/29/24 Rx Bumetanide [BUMEX] 1 mg PO DAILY #30 tab 07/25/24 07/29/24 Rx Dapagliflozin Propanediol [Farxiga] 10 mg PO DAILY #30 tab 07/25/24 07/29/24 Rx Lactulose [Cephulac] 20 gm PO TID #2700 ml 07/25/24 07/29/24 Rx Levofloxacin [Levaquin] 500 mg PO Q24H #3 tab 07/25/24 07/29/24 Rx Metoprolol Tartrate [Lopressor] 25 mg PO BID #60 tab 07/25/24 07/29/24 Rx Thiamine [Vitamin B-1] 100 mg PO DAILY #14 tab 07/25/24 07/29/24 Rx Sacubitril/Valsartan [Entresto 24 1 tab PO BID 07/29/24 07/29/24 History mg-26 mg Tablet] Allergies Allergy/AdvReac Type Severity Reaction Status Date / Time No Known Allergies Allergy Verified 07/29/24 08:43 Surgical - Exam Vital Signs Temp Pulse Resp BP Pulse Ox 98.4 F 84 18 113/55 97 07/29/24 00:47 07/29/24 00:47 07/29/24 00:47 07/29/24 00:47 07/29/24 00:47 - Cardiovascular Patient has nonpalpable pedal pulses 0/4 bilateral with decreased skin temperature texture tugor of bilateral feet. There is pitting edema of 5 lower lower extremities 4/7 bilateral there is no digital hair x 10 - Integumentary Patient has elongated painful mycotic nails with dystrophic changes in a ge ographic pattern with subungual debris to the distal one third of the nails 1 through 5 bilateral painful with palpation - Neurologic Patient has loss of protective sensation to an SWM 5.07 mg wire up to including the lower legs bilateral with absent vibratory 2 point tactile at the medial malleolus bilateral - Musculoskeletal Range of motion ankle joint subtalar joint midtarsal joint metatarsal phalangeal joint grossly normal without pain or crepitus bilateral all inverters everters plantarflex dorsiflex grossly intact bilateral Results - Labs 07/31/24 04:21 07/31/24 04:21 Abnormal Lab Results - Last 24 Hours (Table) 07/31/24 07/31/24 Range/Units 04:21 04:21 RBC 3.33 L (4.40-5.60) X 10*6/uL Hgb 10.5 L (13.0-17.0) g/dL Hct 33.8 L (39.6-50.0) % MCV 101.5 H (80.0-97.0) FL MCHC 31.1 L (32.0-37.0) g/dL RDW 15.2 H (11.5-14.5) % Plt Count 121 L (140-440) X 10*3/uL MPV 12.6 H (9.5-12.2) FL Potassium 3.4 L (3.5-5.5) mmol/L BUN 7.8 L (9.0-27.0) mg/dL Calcium 8.3 L (8.7-10.3) mg/dL Total Bilirubin 1.5 H (0.3-1.2) mg/dL AST 44 H (14-35) U/L Alkaline Phosphatase 144 H (41-126) U/L Total Protein 6.1 L (6.2-8.2) g/dL Albumin 3.3 L (3.8-4.9) g/dL Albumin/Globulin Ratio 1.18 L (1.60-3.17) Ratio Diabetes panel 07/31/24 Range/Units 04:21 Sodium 135 (135-145) mmol/L Potassium 3.4 L (3.5-5.5) mmol/L Chloride 98 (96-109) mmol/L Carbon Dioxide 28.6 (21.6-31.8) mmol/L BUN 7.8 L (9.0-27.0) mg/dL Creatinine 0.6 (0.6-1.5) mg/dL Glucose 97 (70-110) mg/dL Calcium 8.3 L (8.7-10.3) mg/dL AST 44 H (14-35) U/L ALT 13 (10-49) U/L Alkaline Phosphatase 144 H (41-126) U/L Total Protein 6.1 L (6.2-8.2) g/dL Albumin 3.3 L (3.8-4.9) g/dL Calcium panel 07/31/24 Range/Units 04:21 Calcium 8.3 L (8.7-10.3) mg/dL Albumin 3.3 L (3.8-4.9) g/dL Pituitary panel 07/31/24 Range/Units 04:21 Sodium 135 (135-145) mmol/L Potassium 3.4 L (3.5-5.5) mmol/L Chloride 98 (96-109) mmol/L Carbon Dioxide 28.6 (21.6-31.8) mmol/L BUN 7.8 L (9.0-27.0) mg/dL Creatinine 0.6 (0.6-1.5) mg/dL Glucose 97 (70-110) mg/dL Calcium 8.3 L (8.7-10.3) mg/dL Adrenal panel 07/31/24 Range/Units 04:21 Sodium 135 (135-145) mmol/L Potassium 3.4 L (3.5-5.5) mmol/L Chloride 98 (96-109) mmol/L Carbon Dioxide 28.6 (21.6-31.8) mmol/L BUN 7.8 L (9.0-27.0) mg/dL Creatinine 0.6 (0.6-1.5) mg/dL Glucose 97 (70-110) mg/dL Calcium 8.3 L (8.7-10.3) mg/dL Total Bilirubin 1.5 H (0.3-1.2) mg/dL AST 44 H (14-35) U/L ALT 13 (10-49) U/L Alkaline Phosphatase 144 H (41-126) U/L Total Protein 6.1 L (6.2-8.2) g/dL Albumin 3.3 L (3.8-4.9) g/dL Assessment and Plan Assessment: Painful mycotic nails x 10 with peripheral vascular disease bilateral Plan: Exam discussed with patient findings and treatment plan. Due to patient's systemic disease patient would benefit from podiatric care with reduction of these painful nail conditions. Today using manual methods we reduced the mycotic nails x 10 with cutting the nail plate and debridement of the nail plate of mycotic features as well as a NebuPent x 10. We discussed with patient etiology prognosis risks expectations of treatment with conservative and shasha gical treatment options. Patient would benefit from continued podiatric care. We also discussed with patient proper foot hygiene patient is to ventilate the foot daily and avoid exposure to moisture for prolonged periods encouraged patient to let the feet ventilate daily with removal of his socks and shoes. Time with Patient: Greater than 30
--- NOTE | 2024-08-01 02:10 | EEG ---
ELECTROENCEPHALOGRAM REPORT PREAMBLE: This is a 59-year-old male who passed out at home and hit his head. Denies any lightheadedness, dizziness, incontinence. The patient is complaining of lower back pain. He has a history of excessive drinking. CURRENT MEDICATIONS: 1. Eliquis. 2. Aspirin. 3. Bumex. 4. Farxiga. 5. Karval. 6. Ativan. 7. Lopressor. 8. Protonix. 9. Entresto. 10.Vitamin B1. EEG FINDINGS: This is a 21-channel digital EEG recorded with video component, utilizing 10/20 international system with referential and bipolar montages. The recording starts and continues with presence of mixed frequencies of moderate amplitude, 9 hertz alpha, intermixed with some theta in 4 to 6 hertz seen in bihemispheric region. Background is posterior dominant, seems to be slightly reactive to eye opening and closing. Photic driving response was not clearly seen. Frontal intermittent rhythmic delta activity was seen. Different stages of sleep were not seen. No definitive focal or generalized epileptiform activity was seen. EKG channel showed no obvious arrhythmia. IMPRESSION: This is an abnormal EEG due to presence of frontal intermittent rhythmic delta activity. This is nonspecific finding, can be seen with various causes of encephalopathy, underlying structural abnormality, or elevated intracranial pressure. Clinical correlation is recommended. No epileptiform activity was seen. No electrographic seizure was recorded. MMODL / IJN: [id number] / [facility]ITALMike
[2024-08-01 08:01] VITALS: RESP 16
--- NOTE | 2024-08-01 09:36 | P.PN ---
Subjective Progress Note Date: 07/31/24 patient is a 59-year-old gentleman past medical history significant for alcohol dependence, atrial fibrillation, CAD status post CABG, HFrEF status post AICD presented to the ER because of fall. Patient stated he was at home when while standing he passed out. Patient did hit his head, there was bruising around his eye. Patient did not lose control over the bowel or urine. Denied any lightheadedness or dizziness prior to passing out. There was no weakness of any extremity. Because of this passing out, patient brought to the ER Initial lab work done in the ER showed CBC 3.8, hemoglobin 10.5, platelet count 133, sodium 139, potassium 2.7, BUN 4, creatinine 0.49, magnesium 1.2, total bilirubin 2 AST 48, ALT 13 EKG done in the ER showed heart rate of 79, no ST segment elevation or depression seen, no T-wave inversions seen. Pelvic x-ray done showed no fracture Chest x-ray done in the ER showed cardiomegaly, mild pulmonary vascular congestion CT head done showed no acute intracranial process CT cervical spine done showed no acute fracture or subluxation Patient admitted to internal medicine service 07/30. Patient seen and examined. Complaining of swelling of lower extremities. Denies any shortness of breath. 07/31/2024 Patient is seen in follow-up this morning currently maintained on CIWA protocol also being followed by cardiology with workup for syncope. Patient reports he has been off and on drinking heavily and is working on signing up to go to [place] for inpatient rehab. Patient evaluated by cardiology recommending stress test and will be monitored overnight on continue telemetry monitoring and stress test in the a.m. 08/01/2024. Patient will need to reschedule intake appointment at [place] once medically stable. Patient denies any chest pain or feelings of lightheadedness at this time. Patient reports he had been drinking heavily off and on and does want to seek help to quit drinking. Potassium mildly low at 3.4 and will replace per protocol liver functions trending down. Troponins are flat at 0.030 and will await cardiology report. Blood pressures have been on the lower side as well. Podiatry also consulted as patient is having painful and difficulty walking due to extremely mycotic digits x 10. REVIEW OF SYSTEMS: CONSTITUTIONAL: No fever, no malaise,. CARDIOVASCULAR: No chest pain, no palpitations, no syncope. PULMONARY: No shortness of breath, no cough, GASTROINTESTINAL: No diarrhea, no nausea, no vomiting, no abdominal pain. NEUROLOGICAL: No headaches, reports of generalized weakness, reports bilateral feet pain PHYSICAL EXAMINATION: GENERAL: The patient is alert and oriented x3, not in any acute distress. Well d eveloped, well nourished. Elderly appearing HEENT: Pupils are round and equally reacting to light. EOMI. No scleral icterus. No conjunctival pallor. Normocephalic, atraumatic. No pharyngeal erythema. No thyromegaly. CARDIOVASCULAR: S1 and S2 muffled PULMONARY: Diminished breath sounds bilaterally otherwise some faint crackles noted. ABDOMEN: Soft, nontender, quite distended, normoactive bowel sounds. Tympanic. No palpable organomegaly. MUSCULOSKELETAL: No joint swelling or deformity. EXTREMITIES: 1+ pitting edema lower extremities bilaterally NEUROLOGICAL: Gross neurological examination did not reveal any focal deficits. Diffusely weak SKIN: No rashes. Assessment: Fall with Syncopal episode, multifactorial, possibly secondary to hypovolemia as well as hypotension and possibly alcohol induced History of alcohol abuse History of alcohol withdrawal seizures Chronic hypoxic respiratory failure, uses 2 to 3 L at home as needed secondary to COPD Hyponatremia Hypomagnesemia Hyperbilirubinemia History of liver cirrhosis History of atrial fibrillation History of coronary artery disease with CABG History of AICD History of anxiety Continued ongoing nicotine dependence History of hypertension History diabetes mellitus GI prophylaxis DVT prophylaxis Full code Plan: Patient being followed by cardiology undergoing adjustments to medications and had minimally elevated troponins with concerns of possible syncope, is being planned for stress test in the a.m. Continue CIWA protocol and monitor for any alcohol withdrawals Patient is planning on going to [place] on discharge once medically stable and will need to rearrange for intake appointment as he had scheduled 1 on 08/01/2024 although will be undergoing stress testing Social work following making arrangements regarding discharge planning and assisting the patient on inpatient rehab for alcohol withdrawals and abuse Will follow-up on repeat labs in the a.m. Due to multiple complex medical issues, overall prognosis is guarded. Will await cardiology stress test report and clearance from cardiology Possible discharge planning in the next 24 to 48 hours The impression and plan of care has been dictated by Shira Irizarry, Nurse Practitioner as directed. Dr. Hunter MD I have performed a history and examination and MDM of this patient, discussed the same with the dictator, and agree with the dictator's assessment and plan as written ,documented as a scribe. Based on total visit time, I have performed more than 50% of the visit. Objective - Vital Signs Vital signs: Vital Signs Temp 98 F 07/31/24 12:22 Pulse 60 07/31/24 12:22 Resp 16 07/31/24 12:22 BP 105/65 07/31/24 12:22 Pulse Ox 96 07/31/24 12:22 FiO2 Intake & Output 07/30/24 07/31/24 07/31/24 18:59 06:59 18:59 Intake Total 540 720 Output Total 775 1000 450 Balance -235 -280 -450 Weight 73 kg Intake: Oral 540 720 Output: Urine 775 1000 450 Other: Voiding Method Bedside Commode Bedside Commode Bedside Commode Urinal # Voids 1 - Labs CBC & Chem 7: 07/31/24 04:21 07/31/24 04:21 Labs: Abnormal Lab Results - Last 24 Hours (Table) 07/31/24 07/31/24 Range/Units 04:21 04:21 RBC 3.33 L (4.40-5.60) X 10*6/uL Hgb 10.5 L (13.0-17.0) g/dL Hct 33.8 L (39.6-50.0) % MCV 101.5 H (80.0-97.0) FL MCHC 31.1 L (32.0-37.0) g/dL RDW 15.2 H (11.5-14.5) % Plt Count 121 L (140-440) X 10*3/uL MPV 12.6 H (9.5-12.2) FL Potassium 3.4 L (3.5-5.5) mmol/L BUN 7.8 L (9.0-27.0) mg/dL Calcium 8.3 L (8.7-10.3) mg/dL Total Bilirubin 1.5 H (0.3-1.2) mg/dL AST 44 H (14-35) U/L Alkaline Phosphatase 144 H (41-126) U/L Total Protein 6.1 L (6.2-8.2) g/dL Albumin 3.3 L (3.8-4.9) g/dL Albumin/Globulin Ratio 1.18 L (1.60-3.17) Ratio
[2024-08-01] MEDS: POTASSIUM CHLORIDE ER 20 MEQ TAB.ER PO STA (12:26)
[2024-08-01 12:39] VITALS: BP 106/58; PULSE 74; TEMP 98.6
--- NOTE | 2024-08-01 21:23 | P.PN ---
Subjective Progress Note Date: 08/01/24 Consult reason: chest pain History of present illness: This is a 59-year-old male patient of Dr. Kruse at [facility] with past medical history of COPD, coronary artery disease with previous three-vessel CABG approximately 25 years ago and cardiac catheterization with stent placement per patient, ischemic cardiomyopathy status post AICD, ventricular tachycardia status post VT ablation, history of paracentesis, persistent atrial fibrillation, hypertension, PAD with prior bifemoral bypass in 2012, previous carotid endarterectomy in March 2020, previous left atrial appendage thrombus which improved after anticoagulation, tobacco use and dependence alcohol abuse. Patient has had a number of admissions at [facility] with previou s workup in February 2022 showing EF of 40%. Patient had a recent hospitalization and seen by cardiology on 07/20 as he had a fall at home and concern was for seizure. Patient was attempting to withdraw from alcohol. He was intubated and sedated in the emergency center at that time and was started on IV Ativan and Versed drip. We were on consult for A-fib with RVR, type II ID. Patient was discharged home on 07/25. Patient presented to the hospital due to unresponsive episode with altered mental status and concern for seizures. Patient states that he was doing fine at home until he passed out. No alcohol intake when he was at home between admissions. He has lower extremity edema, more than normal. He states he had some chest pain yesterday after his fall but he has none now. Blood pressure 113/72, heart rate in the 60s and 70s, pulse ox 98% on 4 L nasal cannula. Patient has been started on the CIWA protocol. EKG: Atrial fibrillation left bundle branch block 79 bpm Chest x-ray: Cardiomegaly. Mild vascular congestion. Trace left effusion. Pelvis x-ray: No fracture or dislocation. CT head and cervical spine: No acute findings on CT of the brain. No acute fracture or subluxation on the cervical spine. Laboratory studies: WBC 5.6, hemoglobin 10.5, platelet count 121. Troponin negative x 3. Sodium 133, potassium 4.2, BUN 5.5 and creatinine 0.6. Magnesium 1.5. Total bilirubin 1.6, AST 42. Serum alcohol less than 10. Home cardiac medications: Eliquis 5 mg twice daily, aspirin 81 mg daily, Lipitor 40 mg daily, Bumex 1 mg daily, Lopressor 25 mg twice daily, Entresto 24-26 mg 1 tablet twice daily. Echocardiogram performed on 07/19/2024 revealed EF of 25 to 30%, severe pulmonary hypertension, mild to moderate tricuspid regurgitation, mild mitral and aortic regurgitation, inferior wall hypokinesis secondary to prior ID. Cardiac CT performed at [facility] on 12/21/2023 revealed focal calcified plaque at the origin of the VEL[place] graft causing 25 to 50% stenosis. The remainder of the graft shows no disease. The anastomosis to the LAD is widely patent. Runoff down the LAD shows small focal calcified plaques causing less than 50% stenosis. Vein graft to obtuse marginal branches widely patent showing no disease. The anastomosis of the [place] vessel is widely patent. Small focal calcified plaques in the distal runoff causing less than 50% stenosis. Vein graft to the posterior lateral branch has few scattered calcified plaques causing less than 25% stenosis. Anastomosis to the PLB is widely patent. Severely diseased [place] vessels. Dense calcification precludes visual estimation of stenosis severity. Appearance of total occlusion in the mid RCA. Moderate calcification throughout the aorta. Dual-chamber device leads noted. MPI performed at [facility] 12/19/2023 revealed extensive myocardial infarction/scar in the inferior lateral and posterior lateral muñiz encompassing approximately 28% of the total LV myocardium and similar to prior study in 2019. No segmental locations of reversible tracer perfusion defects. Significantly enlarged left ventricle chamber with global hypokinesis and akinesis in the inferior lateral and posterior lateral muñiz with EF 25 to 30%. 08/01 Patient is seen and examined.ICD was interrogated and found 100% afib burden over 28 months. No episodes of VT. Patient denies chest pain. He has been maintained on IV Lasix 40 mg every 12 hours. He states that he is urinating a lot. He feels tired but no other concerns. BP 106/58, HR 74, PO 100% on 4L n/c. Discussed plan of discharge home today and patient is agreeable. Physical examination: Gen: This is 59-year-old male in no acute distress VS: reviewed HEENT: Head is normocephalic. Ecchymosis left orbital area, pupils equal, round. Sclerae is anicteric. NECK: Supple. No JVD. LUNGS: Clear to auscultation. No wheezes or rhonchi. No intercostal retractions. HEART: Regular rate and rhythm. No murmur. ABDOMEN: Soft No tenderness. + Significant abdominal hernia right lower area without pain. EXTREMITIES: 2+ LE edema with chronic dark skin changes bilat. No calf tenderness. NEUROLOGICAL: Patient is awake, alert and oriented x3. Assessment: Atypical chest pain, acute coronary syndrome ruled out Syncopal episode, suspected seizure Electrolyte abnormalities with hyponatremia and hypomagnesemia status post replacement Bicytopenia with anemia and thrombocytopenia History of coronary artery disease with previous CABG and cardiac catheterization Hypertension Persistent atrial fibrillation Ischemic cardiomyopathy status post AICD Chronic HFrEF Severe pulmonary hypertension Valvular heart disease with mild to moderate tricuspid regurgitation, mild mitral and aortic regurgitation COPD Alcohol abuse Plan: Continue patient's home cardiac medications D/c IV lasix and resume po bumex Patient is cleared for discharge home and may follow up in the office in 1-2 weeks. Nurse practitioner note has been reviewed, I agree with documented findings and plan of care. Patient was seen and examined. Objective - Vital Signs Vital signs: Vital Signs Temp 97.9 F 08/01/24 07:15 Pulse 77 08/01/24 07:15 Resp 16 08/01/24 07:15 BP 104/63 08/01/24 07:15 Pulse Ox 4 L 08/01/24 08:05 FiO2 Intake & Output 07/31/24 08/01/24 08/01/24 18:59 06:59 18:59 Intake Total 780 Output Total 1250 900 400 Balance -1250 -120 -400 Intake: Oral 780 Output: Urine 1250 900 400 Other: Voiding Method Bedside Commode Bedside Commode Urinal # Bowel Movements 1 - Labs CBC & Chem 7: 07/31/24 04:21 07/31/24 04:21
--- NOTE | 2024-08-02 09:34 | P.DS ---
Providers Date of admission: 07/29/24 07:37 Expected date of discharge: 08/02/24 Attending physician: Alexandra Harrison Consults: 07/30/24 10:44 Consult Physician Routine Consulting Provider: Tarun Mayo Consult Reason/Comments: nails (left foot ) Do you want consulting provider notified?: Yes, Notify in am 07/30/24 21:44 Consult Physician Routine Consulting Provider: Cristopher Reddy Consult Reason/Comments: chest pain Do you want consulting provider notified?: Yes, Notify in am Primary care physician: Stated None Hospital Course: Final diagnosis Fall with Syncopal episode, multifactorial, likely secondary to hypovolemia as well as hypotension and alcohol induced History of alcohol abuse History of alcohol withdrawal seizures Chronic hypoxic respiratory failure, uses 2 to 3 L at home as needed secondary to COPD, noncompliant and reports he does not wear it often Hyponatremia, improved Hypomagnesemia, improved Hyperbilirubinemia History of liver cirrhosis History of atrial fibrillation History of coronary artery disease with CABG History of AICD History of anxiety Continued ongoing nicotine dependence History of hypertension History diabetes mellitus GI prophylaxis DVT prophylaxis Full code Discharge disposition Patient is being discharged in a stable condition with guarded prognosis to home. Patient will follow-up with Dr. Ryan Harrison and was also provided with phone numbers to establish in the outpatient setting upon discharge. Patient is to continue with current medications and outpatient follow-up with cardiology as scheduled. Patient is making an intake appointment for [facility] for alcohol abuse. Total time taken is greater than 35 minutes. Hospital course This is a 59-year-old male who was recently admitted with fall with possible syncopal episode with alcohol intoxication and concerns for acute alcohol withdrawal. Patient with significant comorbidities and noncompliance to follow- up in outpatient with no primary care provider was evaluated by cardiology during hospitalization with adjustments to medications. Patient is attempting to get into [facility] for inpatient alcohol rehab. No immediate plans for stress testing and has been instructed to follow-up with cardiology in the outpatient setting. Recommend repeat labs in the next few days to monitor kidney functions and electrolytes. Strongly encouraged complete alcohol cessation and exposure to. Patient reports that he is making an intake appointment at [facility]. Please refer to cardiology note for further HPI. Patient will also follow-up with Dr. Regalado see podiatry in the outpatient setting. Currently no reports of chest pain, shortness of breath, or palpitations. Patient is afebrile. No reports of nausea or vomiting and pat ient is tolerating diet. Patient will be discharged home today. Guarded prognosis and high risk for readmissions given patient's continued noncompliance Physical exam: Gen: This is a 59-year-old male who is awake, alert and oriented x 3, well- developed, elderly appearing, unkempt HEENT: Head is atraumatic, normocephalic. Pupils equal, round. Sclerae is anicteric. NECK: Supple. No JVD. No lymphadenopathy. No thyromegaly. LUNGS: Diminished breath sounds bilaterally otherwise clear to auscultation. No wheezes or rhonchi. No intercostal retractions. HEART: S1, S2 are muffled ABDOMEN: Soft. Obese, mildly distended bowel sounds are present. No masses. No tenderness. EXTREMITIES: No pedal edema. No calf tenderness. NEUROLOGICAL: Patient is awake, alert and oriented x3. Cranial nerves 2 through 12 are grossly intact. Please refer to medication reconciliation sheet for a list of medications. The impression and plan of care has been dictated by Shira Irizarry, Nurse Pr actitioner as directed. Dr. Hunter MD I have performed a history and examination and MDM of this patient, discussed the same with the dictator, and agree with the dictator's assessment and plan as written ,documented as a scribe. Based on total visit time, I have performed more than 50% of the visit. Patient Condition at Discharge: Fair Plan - Discharge Summary New Discharge Prescriptions: New Nicotine 21Mg/24Hr Patch [Habitrol] 1 patch TRANSDERM DAILY patch Magnesium Oxide [Mag-Ox] 400 mg PO TID #90 tab Potassium Chloride [K-Tab ER] 20 meq PO DAILY #30 tab Continue LORazepam 2 mg PO TID PRN PRN Reason: Anxiety HYDROcodone/APAP 10-325MG [[place] 10-325] 1 tab PO Q6H PRN PRN Reason: Pain Atorvastatin [Lipitor] 40 mg PO DAILY #30 tab Metoprolol Tartrate [Lopressor] 25 mg PO BID #60 tab Aspirin 81 mg PO DAILY #30 tab Bumetanide [BUMEX] 1 mg PO DAILY #30 tab Lactulose [Cephulac] 20 gm PO TID #2700 ml Apixaban [Eliquis] 5 mg PO BID #60 tab Dapagliflozin Propanediol [Farxiga] 10 mg PO DAILY #30 tab Thiamine [Vitamin B-1] 100 mg PO DAILY #14 tab Sacubitril/Valsartan [Entresto 24 mg-26 mg Tablet] 1 tab PO BID Discontinued Levofloxacin [Levaquin] 500 mg PO Q24H #3 tab Discharge Medication List HYDROcodone/APAP 10-325MG [[place] 10-325] 1 tab PO Q6H PRN 07/19/24 [History] LORazepam 2 mg PO TID PRN 07/19/24 [History] Apixaban [Eliquis] 5 mg PO BID #60 tab 07/25/24 [Rx] Aspirin 81 mg PO DAILY #30 tab 07/25/24 [Rx] Atorvastatin [Lipitor] 40 mg PO DAILY #30 tab 07/25/24 [Rx] Bumetanide [BUMEX] 1 mg PO DAILY #30 tab 07/25/24 [Rx] Dapagliflozin Propanediol [Farxiga] 10 mg PO DAILY #30 tab 07/25/24 [Rx] Lactulose [Cephulac] 20 gm PO TID #2700 ml 07/25/24 [Rx] Metoprolol Tartrate [Lopressor] 25 mg PO BID #60 tab 07/25/24 [Rx] Thiamine [Vitamin B-1] 100 mg PO DAILY #14 tab 07/25/24 [Rx] Sacubitril/Valsartan [Entresto 24 mg-26 mg Tablet] 1 tab PO BID 07/29/24 [History] Magnesium Oxide [Mag-Ox] 400 mg PO TID #90 tab 08/01/24 [Rx] Nicotine 21Mg/24Hr Patch [Habitrol] 1 patch TRANSDERM DAILY patch 08/01/24 [Rx] Potassium Chloride [K-Tab ER] 20 meq PO DAILY #30 tab 08/01/24 [Rx] Follow up Appointment(s)/Referral(s): [facility] [Outside] - As Needed Tarun Mayo DPM [STAFF PHYSICIAN] - 08/11/24 2:30 pm (appointment in the [place] office [address] [place] [address]) Ambulatory/Diagnostic Orders: Basic Metabolic Panel [LAB.AMB] Time Frame: 3 Days, Location: None Selected Patient Instructions/Handouts: Potassium Chloride (By mouth), Magnesium Oxide (By mouth), Alcohol Intoxication (DC), Abuse of Alcohol (DC), Alcohol Withdrawal (DC), Fall Prevention (DC), Alcohol Dependence (DC) Activity/Diet/Wound Care/Special Instructions: Activity limited until follow-up Follow-up with primary care provider on discharge Contact [facility] for intake appointment once discharged Continue to avoid alcohol use and exposure Continue with medications as prescribed Follow-up cardiology outpatient [place]CP: [place] - [address] [place] [address] - Phone. - Discharge/Stand Alone Forms: AA Meetings [address] - [facility], AA Meetings [place], Who Do I Call?, Community Resources, Outpatient Counseling, Inp Substance Abuse Facilities, Area PCPs Discharge Disposition: HOME SELF-CARE
== END 2024-08-01 14:53 | disposition home or self-care (01) | DRG 641 ==
LOC: EC 00:46 → 5NMEDONC 07:37
PROVIDERS: ADMIT Hospitalist; ATTEND Hospitalist
PROC: 4A10X4Z Monitoring of Central Nervous Electrical Activity, External Approach (ICD-10-PCS; principal; 2024-07-31)
DX: E87.1 Hypo-osmolality and hyponatremia (principal); F05 Delirium due to known physiological condition; I50.22 Chronic systolic (congestive) heart failure; I48.19 Other persistent atrial fibrillation; J96.11 Chronic respiratory failure with hypoxia; F10.239 Alcohol dependence with withdrawal, unspecified; E83.42 Hypomagnesemia; E87.6 Hypokalemia; F10.229 Alcohol dependence with intoxication, unspecified; E11.51 Type 2 diabetes mellitus with diabetic peripheral angiopathy without gangrene; I25.5 Ischemic cardiomyopathy; I44.7 Left bundle-branch block, unspecified; I11.0 Hypertensive heart disease with heart failure; J44.9 Chronic obstructive pulmonary disease, unspecified; K74.60 Unspecified cirrhosis of liver; D64.9 Anemia, unspecified; B35.1 Tinea unguium; I27.20 Pulmonary hypertension, unspecified; D69.6 Thrombocytopenia, unspecified; E86.1 Hypovolemia; F17.210 Nicotine dependence, cigarettes, uncomplicated; F41.9 Anxiety disorder, unspecified; I08.3 Combined rheumatic disorders of mitral, aortic and tricuspid valves; I25.10 Atherosclerotic heart disease of native coronary artery without angina pectoris; I25.2 Old myocardial infarction; Z79.01 Long term (current) use of anticoagulants; Z79.82 Long term (current) use of aspirin; Z79.84 Long term (current) use of oral hypoglycemic drugs; Z79.899 Other long term (current) drug therapy; Z91.199 Patient's noncompliance with other medical treatment and regimen due to unspecified reason; Z95.1 Presence of aortocoronary bypass graft; Z95.5 Presence of coronary angioplasty implant and graft; Z95.810 Presence of automatic (implantable) cardiac defibrillator; Z87.19 Personal history of other diseases of the digestive system; Z90.49 Acquired absence of other specified parts of digestive tract
CPT/HCPCS: 36415; 70450; 71045; 72125; 72170; 80053; 80320; 83690; 83735; 84100; 84484; 85025; 85610; 93005; 94760; 95816; 96361; 96365; 96366; 96368; 96375; 99285

== ENCOUNTER 2024-08-08 08:17 | Inpatient (IN) | payer MEDICARE, OTHER ==
--- NOTE | 2024-08-08 08:57 | ED ---
General Adult HPI - General Chief complaint: Shortness of Breath Stated complaint: STARLA Time Seen by Provider: 08/08/24 08:21 Source: patient, EMS Mode of arrival: EMS Limitations: no limitations - History of Present Illness Initial comments: Dictation was produced using [employer] dictation software. please excuse any grammatical, word or spelling errors. Chief Complaint: 59-year-old male presents to the emergency department for worsening weakness History of Present Illness: Patient is a 59-year-old female presents emergency department for worsening weakness. Patient has multiple comorbidities states that he was just discharged 5 days ago. States that since being at home he has been unable to care for himself. He lives at home with friends. He does not have any assistance. Patient has a history of alcohol abuse. States that he is also short of breath. He has multiple comorbidities. Denies any fever, chills or night sweats. States that his shortness of breath is worse when he lies flat. Denies any pain complaints The ROS documented in this emergency department record has been reviewed and confirmed by me. Those systems with pertinent positive or negative responses have been documented in the HPI. All other systems are other negative and/or noncontributory. - Related Data Home Medications Medication Instructions Recorded Confirmed HYDROcodone/APAP 10-325MG [[place] 1 tab PO Q6H PRN 07/19/24 08/08/24 10-325] LORazepam 2 mg PO TID PRN 07/19/24 08/08/24 Sacubitril/Valsartan [Entresto 24 1 tab PO BID 07/29/24 08/08/24 mg-26 mg Tablet] Previous Rx's Medication Instructions Recorded Apixaban [Eliquis] 5 mg PO BID #60 tab 07/25/24 Aspirin 81 mg PO DAILY #30 tab 07/25/24 Atorvastatin [Lipitor] 40 mg PO DAILY #30 tab 07/25/24 Bumetanide [BUMEX] 1 mg PO DAILY #30 tab 07/25/24 Dapagliflozin Propanediol [Farxiga] 10 mg PO DAILY #30 tab 07/25/24 Lactulose [Cephulac] 20 gm PO TID #2700 ml 07/25/24 Metoprolol Tartrate [Lopressor] 25 mg PO BID #60 tab 07/25/24 Thiamine [Vitamin B-1] 100 mg PO DAILY #14 tab 07/25/24 Magnesium Oxide [Mag-Ox] 400 mg PO TID #90 tab 08/01/24 Nicotine 21Mg/24Hr Patch [Habitrol] 1 patch TRANSDERM DAILY patch 08/01/24 Potassium Chloride [K-Tab ER] 20 meq PO DAILY #30 tab 08/01/24 Allergies Allergy/AdvReac Type Severity Reaction Status Date / Time No Known Allergies Allergy Verified 08/08/24 09:41 Review of Systems ROS Statement: Those systems with pertinent positive or pertinent negative responses have been documented in the HPI. ROS Other: All systems not noted in ROS Statement are negative. Past Medical History Past Medical History: Atrial Fibrillation, Chest Pain / Angina, Heart Failure, COPD, Hypertension, Liver Disease, Myocardial Infarction (ID), Respiratory Disorder, Syncope Additional Past Medical History / Comment(s): Home oxygen use@2-3L PRN COPD - says has oxygen at home but doesn't wear it, ID- patient reports having 3-4 ID's, + CABG -triple bypass scar, + AICD/PCCM "I have a machine inside that sends all the info to my heart doctor" , Abdominal Hernia surgery x2, paracentesis as needed- [facility] patient Last Myocardial Infarction Date:: 1982 History of Any Multi-Drug Resistant Organisms: None Reported Past Surgical History: AICD, Cholecystectomy, Coronary Bypass/CABG, Heart Catheterization With Stent, Hernia Repair, Pacemaker Additional Past Surgical History / Comment(s): CABG, AICD/Pacemaker placed about 10 years ago per patient 07/19/24, Hernia repair abdominal x2 Past Anesthesia/Blood Transfusion Reactions: No Reported Reaction Date of Last Stent Placement:: 1982 Type of Cardiac Device: Permanent Pacemaker, AICD Device Placement Date:: 1982 Past Psychological History: Anxiety Smoking Status: Current every day smoker - Past Family History Mother Family Medical History: Cancer Father Family Medical History: Cancer General Exam - General Exam Comments Initial Comments: PHYSICAL EXAM: General Impression: Alert and oriented x3, not in acute distress HEENT: Normocephalic atraumatic, extra-ocular movements intact, pupils equal and reactive to light bilaterally, mucous membranes moist. Cardiovascular: Heart regular rate and rhythm Chest: Able to complete full sentences, no retractions, no tachypnea Abdomen: abdomen soft, non-tender, non-distended, no organomegaly Musculoskeletal: Pulses present and equal in all extremities, no peripheral edema Motor: no focal deficits noted Neurological: CN II-XII grossly intact, no focal motor or sensory deficits noted Skin: Intact with no visualized rashes Psych: Normal affect and mood Limitations: no limitations Course Vital Signs 08/08/24 08/08/24 08/08/24 08:21 09:02 10:16 Temperature 97.9 F 97.9 F Pulse Rate 71 73 Respiratory 17 19 19 Rate Blood Pressure 139/86 133/82 O2 Sat by Pulse 100 99 Oximetry - Reevaluation(s) Reevaluation #1: 08/08/24 08:56 discharge summary from August 01 was reviewed showing that consuelo servin was discharged has a history of alcohol abuse and medication noncompliance with high risk for readmission EKG Findings - EKG Comments: EKG Findings:: My EKG interpretation: Ventricular rate 69, A-fib, QRS 115, QTc 437. No QTC prolongation, no ST or T-wave changes noted. Overall, this EKG is unremarkable Medical Decision Making - Medical Decision Making Was pt. sent in by a medical professional or institution (, PA, HAIRSPRING ASSEMBLER, urgent care, hospital, or care home...) When possible be specific @ -No Did you speak to anyone other than the patient for history (EMS, parent, family, police, friend...)? What history was obtained from this source @ -EMS as described above Did you review nursing and triage notes (agree or disagree)? Why? @ -I reviewed and agree with nursing and triage notes Were old charts reviewed (outside hosp., previous admission, EMS record, old E KG, old radiological studies, urgent care reports/EKG's, care home records)? Report findings @ -No old charts were reviewed Differential Diagnosis (chest pain, altered mental status, abdominal pain women, abdominal pain men, vaginal bleeding, musculoskeletal, weakness, fever, dyspnea, syncope, headache, dizziness, GI bleed, back pain, seizure, CVA, palpatations, mental health)? @ -Differential Weakness: Hypoglycemia, shock, sepsis, hyponatremia, anemia, infection, ID, ETOH, adverse medicine reaction, overdose, stroke, this is not meant to be an all-inclusive list. EKG interpreted by me (3pts min.). @ -See above X-rays interpreted by me (1pt min.). @ -Chest x-ray shows heart failure CT interpreted by me (1pt min.). @ -None done U/S interpreted by me (1pt. min.). @ -None done What testing was considered but not performed or refused? (CT, X-rays, U/S, labs)? Why? @ -None What meds were considered but not given or refused? Why? @ -None Was smoking cessation discussed for >3mins.? @ -No Were there social determinants of health that impacted care today? How? (Homelessness, low income, unemployed, alcoholism, drug addiction, transportation, low edu. Level, literacy, decrease access to med. care, [facility], rehab)? @ -Poor social situation Was there de-escalation of care discussed even if they declined (Discuss DNR or withdrawal of care, Hospice)? DNR status @ -No What co-morbidities impacted this encounter? (DM, HTN, Smoking, COPD, CAD, Cancer, CVA, ARF, Chemo, Hep., AIDS, mental health diagnosis, sleep apnea, morbid obesity)? @ -Alcoholism, CHF Was patient admitted / discharged? Hospital course, mention meds given and route, prescriptions, significant lab abnormalities, going to OR and other pertinent info. @ -59-year-old male presents to the emergency department with generalized weakness. He has a poor social situation. Patient was discharged from here 1 week ago. Vital signs upon arrival are within acceptable limits. Patient well- appearing at the bedside he does complain of shortness of breath he has history of heart failure. X-ray shows mild heart failure. At this point there is significant concern about patient's social situation and worsening debility will be admitted with consultation to social work. Case discussed with hospitalist for admission Did you discuss the management of the patient with other professionals (professionals i.e. , PA, HAIRSPRING ASSEMBLER, lab, RT, psych nurse, sexual assault social worker, bridge leverman, teacher, chief environmental commitment officer, director of casework department)? Give summary See above @ -59-year-old male presents to the emergency department with generalized weakn ess. He has a poor social situation. Patient was discharged from here 1 week ago. Vital signs upon arrival are within acceptable limits. Patient well- appearing at the bedside he does complain of shortness of breath he has history of heart failure. X-ray shows mild heart failure. At this point there is significant concern about patient's social situation and worsening debility will be admitted with consultation to social work. Case discussed with hospitalist for admission Was critical care preformed (if so, how long)? @ -No Undiagnosed new problem with uncertain prognosis? @ -No Drug Therapy requiring intensive monitoring for toxicity (Heparin, Nitro, Insulin, Cardizem)? @ -No Were any procedures done? @ -No Diagnosis/symptom? Acute, or Chronic, or Acute on Chronic? Uncomplicated (without systemic symptoms) or Complicated (systemic symptoms)? @ -Gravely disabled Side effects of treatment? @ -No Exacerbation, Progression, or Severe Exacerbation? @ -No Poses a threat to life or bodily function? How? (Chest pain, USA, ID, pneumonia, PE, COPD, DKA, ARF, appy, cholecystitis, CVA, Diverticulitis, Homicidal, Suicidal, threat to staff... and all critical care pts) @ -yes - Lab Data Result diagrams: 08/08/24 08:43 08/08/24 08:43 Lab Results 08/08/24 08/08/24 08/08/24 Range/Units 08:43 08:43 08:43 WBC 3.8 (3.8-10.6) k/uL RBC 3.10 L (4.30-5.90) m/uL Hgb 9.8 L (13.0-17.5) gm/dL Hct 30.6 L (39.0-53.0) % MCV 98.8 (80.0-100.0) fL MCH 31.6 (25.0-35.0) pg MCHC 32.0 (31.0-37.0) g/dL RDW 15.2 (11.5-15.5) % Plt Count 167 (150-450) k/uL MPV 7.9 Neutrophils % 69 % Lymphocytes % 19 % Monocytes % 6 % Eosinophils % 3 % Basophils % 0 % Neutrophils # 2.7 (1.3-7.7) k/uL Lymphocytes # 0.7 L (1.0-4.8) k/uL Monocytes # 0.2 (0-1.0) k/uL Eosinophils # 0.1 (0-0.7) k/uL Basophils # 0.0 (0-0.2) k/uL Hypochromasia Moderate Macrocytosis Slight Sodium 131 L (137-145) mmol/L Potassium 3.2 L (3.5-5.1) mmol/L Chloride 93 L (98-107) mmol/L Carbon Dioxide 32 H (22-30) mmol/L Anion Gap 6 mmol/L BUN 6 L (9-20) mg/dL Creatinine 0.50 L (0.66-1.25) mg/dL Est GFR (CKD-EPI)AfAm >90 (>60 ml/min/1.73 sqM) Est GFR (CKD-EPI)NonAf >90 (>60 ml/min/1.73 sqM) Glucose 90 (74-99) mg/dL Calcium 8.2 L (8.4-10.2) mg/dL NT-Pro-B Natriuret Pep 1410 pg/mL Disposition Clinical Impression: Weakness Disposition: ADMITTED IP TO THIS HOSP Condition: Fair Referrals: Willie Kerr MD [Primary Care Provider] - 1-2 days Decision Time: 11:30
[2024-08-08 08:59] LABS: Basophils % (A) 0 %; Eosinophils # (A) 0.1 k/uL (0-0.7); Eosinophils % (A) 3 %; HCT 30.6 % (39.0-53.0); HGB 9.8 gm/dL (13.0-17.5); Hypochromasia Moderate; Lymphocytes # (A) 0.7 k/uL (1.0-4.8); Lymphocytes % (A) 19 %; MCH 31.6 pg (25.0-35.0); MCV 98.8 fL (80.0-100.0); Macrocytosis Slight; Mean Platelet Volume 7.9; Monocytes # (A) 0.2 k/uL (0-1.0); Monocytes % (A) 6 %; Neutrophils # (A) 2.7 k/uL (1.3-7.7); Neutrophils % (A) 69 %; Platelet Count 167 k/uL (150-450); RDW 15.2 % (11.5-15.5); WBC 3.8 k/uL (3.8-10.6)
[2024-08-08 09:17] LABS: African American GFR (CKD) >90 (>60 ml/min/1.73 sqM); Anion Gap 6 mmol/L; Blood Urea Nitrogen 6 mg/dL (9-20); Calcium 8.2 mg/dL (8.4-10.2); Carbon Dioxide 32 mmol/L (22-30); Chloride 93 mmol/L (98-107); Glucose 90 mg/dL (74-99); Non-African American GFR(CKD) >90 (>60 ml/min/1.73 sqM); Potassium 3.2 mmol/L (3.5-5.1); Sodium 131 mmol/L (137-145)
--- NOTE | 2024-08-08 10:20 | XR ---
EXAMINATION TYPE: XR chest 2V DATE OF EXAM: 08/08/2024 COMPARISON: 07/29/2024 HISTORY: 59-year-old male dyspnea, shortness of breath TECHNIQUE: AP and lateral views FINDINGS: Left anterior chest wall AICD generator with right atrial and right ventricular leads. Median sternot jason wires are present. Heart mildly enlarged. Hyperinflation. Diffuse interstitial density persists. There is increased now small left pleural effusion with patchy left basilar opacity. Redemonstrated m etal fragments throughout the right shoulder with chronic traumatic deformity at the glenohumeral hilario nt. IMPRESSION: 1. COPD with mild cardiomegaly and interstitial changes. Correlate for ongoing CHF with mild intersti tial pulmonary edema. 2. Increasing small left pleural effusion with adjacent atelectasis and/or consolidation. [facility], , 08/08/2024 10:17 AM
[2024-08-08] MEDS ORDERED: NALOXONE 0.4 MG/ML 1 ML VIAL IV PRN (11:25)
[2024-08-08] MEDS ORDERED: LORazepam 1 MG TAB PO PRN (11:26)
[2024-08-08] MEDS: SODIUM CHLORIDE 0.9% 1,000 ML IV SCH (11:57)
[2024-08-08] MEDS: LACTULOSE 20 GM/30 ML CUP PO SCH (12:00)
[2024-08-08] MEDS: SACUBITRIL/VALSARTAN 24 MG-26 MG TABLET PO SCH (12:01)
[2024-08-08] MEDS: POTASSIUM CHLORIDE ER 20 MEQ TAB.ER PO SCH (12:01)
[2024-08-08] MEDS: THIAMINE 100 MG TAB PO SCH (12:01)
[2024-08-08] MEDS: ATORVASTATIN 40 MG TAB PO SCH (12:01)
[2024-08-08] MEDS: METOPROLOL TARTRATE 25 MG TAB PO SCH (12:01)
[2024-08-08] MEDS: ASPIRIN 81 MG PO SCH (12:01)
[2024-08-08] MEDS: MAGNESIUM OXIDE 400 MG TAB PO SCH (12:01)
[2024-08-08] MEDS: HYDROcodone/APAP 10-325MG 1 EACH TAB PO PRN (12:01)
[2024-08-08] MEDS: NICOTINE 21MG/24HR PATCH TRANSDERM SCH (12:02)
[2024-08-08] MEDS: BUMETANIDE 1 MG TAB PO SCH (12:02)
[2024-08-08] MEDS: APIXABAN 5 MG TAB PO SCH (12:02)
[2024-08-08] MEDS: DAPAGLIFLOZIN PROPANEDIOL 10 MG TABLET PO SCH (12:02)
[2024-08-08] MEDS: POTASSIUM CHLORIDE ER 20 MEQ TAB.ER PO STA (15:29)
[2024-08-08] MEDS: FUROSEMIDE 10 MG/ML 2 ML VIAL IV ONE (15:29)
--- NOTE | 2024-08-08 15:59 | US ---
EXAMINATION TYPE: US abdomen limited DATE OF EXAM: 08/08/2024 COMPARISON: NONE CLINICAL INDICATION: Male, 59 years old with history of ascites; Technique: Grayscale imaging of the abdomen for ascites. FINDINGS: Right sided ascites, no fluid seen on left side of abdomen. Nodular contour to liver. Patient laying on right side before exam was done IMPRESSION: Anechoic fluid seen in the right abdomen compatible with ascites. Hepatic cirrhosis. [facility], , 08/08/2024 3:56 PM
[2024-08-08 16:29] LABS: INR 1.4 (<1.2); Prothrombin Time 14.8 sec (10.0-12.5)
--- NOTE | 2024-08-08 21:57 | P.HPIM ---
History of Present Illness H&P Date: 08/08/24 Chief Complaint: generalized weakness Patient is a 59-year-old male with a past medical history of COPD on home oxygen, coronary arteries with history of triple-vessel CABG approximately 25 years ago, cardiac catheterization and stent placement, ischemic cardiomyopathy status post ICD placement, ventricular tachycardia status post VT ablation, history of paracentesis, persistent atrial fibrillation, hypertension, peripheral vascular disease with prior bifemoral bypass in 2012, previous carotid endarterectomy in March 2020, history of left atrial appendage thrombus which is improved after anticoagulation, alcohol use disorder and nicotine addiction presents to ER with complaints of worsening generalized weakness, abdominal distention and unable to care for himself at home. Patient states that he is trying to quit alcohol and denied any recent use. Is also complai blake of shortness of breath when he lies flat. No complaints of chest pain. No fever no chills. No cough or sputum production. Patient was recently admitted to hospital due to chest pain, syncopal episode which is multifactorial secondary to hypovolemia and hypotension and alcohol induced. He was discharged from the hospital on 08/01/2024. EKG showed atrial fibrillation Chest x-ray showed COPD with mild cardiomegaly and interstitial changes. Correlate for ongoing CHF with mild interstitial pulmonary edema. Increasing small left pleural effusion with adjacent atelectasis and/or consolidation. Laboratory data showed WBC 3.8 hemoglobin 9.8 and platelets 167 INR 1.4, sodium 131 potassium 3.2 chloride 93 bicarb is 32 BUN 6 and creatinine 0.5 and blood sugar 90 proBNP 1410 Review of Systems Constitutional: Patient denies any fever or chills . Generalized weakness. Denied any weight loss.. Abdomen: Patient denied nausea vomiting and diarrhea and abdominal pain. Abdominal distention. Cardiovascular: Patient denies any chest pain. Positive short of breath no palpitations. Respiratory: patient denied any cough or sputum production. Positive for short ness of breath Neurologic: Patient denied any numbness or tingling. no headache. Musculoskeletal: Patient denies any complaints of joint swelling or deformity. Skin: Negative Psychiatric: Negative Endocrine: No heat or cold intolerance. No recent weight gain. Genitourinary: No dysuria or hematuria. All other 14 point ROS negative except the above Past Medical History Past Medical History: Atrial Fibrillation, Chest Pain / Angina, Heart Failure, COPD, Hypertension, Liver Disease, Myocardial Infarction (MD), Respiratory Disorder, Syncope Additional Past Medical History / Comment(s): Home oxygen use@2-3L PRN COPD - says has oxygen at home but doesn't wear it, MD- patient reports having 3-4 MD's, + CABG -triple bypass scar, + AICD/PCCM "I have a machine inside that sends all the info to my heart doctor" , Abdominal Hernia surgery x2, paracentesis as needed- last times was at [facility] about 3-4 months ago per patient Last Myocardial Infarction Date:: 1982 History of Any Multi-Drug Resistant Organisms: None Reported Past Surgical History: AICD, Cholecystectomy, Coronary Bypass/CABG, Heart Catheterization With Stent, Hernia Repair, Pacemaker Additional Past Surgical History / Comment(s): CABG, AICD/Pacemaker placed about 10 years ago per patient 07/19/24, Hernia repair abdominal x2 Past Anesthesia/Blood Transfusion Reactions: No Reported Reaction Date of Last Stent Placement:: 1982 Type of Cardiac Device: Permanent Pacemaker, AICD Device Placement Date:: 1982 Past Psychological History: Anxiety Smoking Status: Current every day smoker - Past Family History Mother Family Medical History: Cancer Father Family Medical History: Cancer Medications and Allergies Home Medications Medication Instructions Recorded Confirmed Type HYDROcodone/APAP 10-325MG [[place] 1 tab PO Q6H PRN 07/19/24 08/08/24 History 10-325] LORazepam 2 mg PO TID PRN 07/19/24 08/08/24 History Apixaban [Eliquis] 5 mg PO BID #60 tab 07/25/24 08/08/24 Rx Aspirin 81 mg PO DAILY #30 tab 07/25/24 08/08/24 Rx Atorvastatin [Lipitor] 40 mg PO DAILY #30 tab 07/25/24 08/08/24 Rx Bumetanide [BUMEX] 1 mg PO DAILY #30 tab 07/25/24 08/08/24 Rx Dapagliflozin Propanediol [Farxiga] 10 mg PO DAILY #30 tab 07/25/24 08/08/24 Rx Lactulose [Cephulac] 20 gm PO TID #2700 ml 07/25/24 08/08/24 Rx Metoprolol Tartrate [Lopressor] 25 mg PO BID #60 tab 07/25/24 08/08/24 Rx Thiamine [Vitamin B-1] 100 mg PO DAILY #14 tab 07/25/24 08/08/24 Rx Sacubitril/Valsartan [Entresto 24 1 tab PO BID 07/29/24 08/08/24 History mg-26 mg Tablet] Magnesium Oxide [Mag-Ox] 400 mg PO TID #90 tab 08/01/24 08/08/24 Rx Nicotine 21Mg/24Hr Patch [Habitrol] 1 patch TRANSDERM DAILY patch 08/01/24 08/08/24 Rx Potassium Chloride [K-Tab ER] 20 meq PO DAILY #30 tab 08/01/24 08/08/24 Rx Allergies Allergy/AdvReac Type Severity Reaction Status Date / Time No Known Allergies Allergy Verified 08/08/24 09:41 Physical Exam Vitals: Vital Signs Temp Pulse Resp BP Pulse Ox 08/08/24 17:54 98.4 F 64 16 109/77 96 08/08/24 15:26 64 20 92/65 95 08/08/24 11:55 65 22 141/79 98 08/08/24 10:16 97.9 F 73 19 133/82 99 08/08/24 09:02 19 08/08/24 08:21 97.9 F 71 17 139/86 100 Intake and Output 08/08/24 08/08/24 08/08/24 06:59 14:59 22:59 Output Total 2200 Balance -2200 Output: Urine 2200 Other: Weight 74.843 kg PHYSICAL EXAMINATION: Patient is currently sitting in the bed, no acute distress, awake alert and oriented. Lethargic and weak.. HEENT: Normocephalic. Neck is supple. Pupils reactive. Nostrils clear. Oral cavity is moist. Neck reveals no JVD, carotid bruits, or thyromegaly. CHEST EXAMINATION: Trachea is central. Symmetrical expansion. Bibasilar diminished sounds. n. CARDIAC: Normal S1, S2 with no gallops. No murmurs. Regular rhythm. ABDOMEN: Soft. Distended with ascites. Bowel sounds present. Organomegaly could not be appreciated. No abdominal bruits. Extremities: reveal no edema. No clubbing or cyanosis Neurologically awake, alert, oriented x3 with well-coordinated movements. No gross focal deficits noted Skin: No rash or skin lesions. Psychiatric: Coperative. Nonsuicidal Musculoskeletal: No joint swelling or deformity. Results CBC & Chem 7: 08/08/24 08:43 08/08/24 08:43 Labs: Abnormal Lab Results - Last 24 Hours (Table) 08/08/24 08/08/24 08/08/24 Range/Units 08:43 08:43 15:45 RBC 3.10 L (4.30-5.90) m/uL Hgb 9.8 L (13.0-17.5) gm/dL Hct 30.6 L (39.0-53.0) % Lymphocytes # 0.7 L (1.0-4.8) k/uL PT 14.8 H (10.0-12.5) sec INR 1.4 H (<1.2) Sodium 131 L (137-145) mmol/L Potassium 3.2 L (3.5-5.1) mmol/L Chloride 93 L (98-107) mmol/L Carbon Dioxide 32 H (22-30) mmol/L BUN 6 L (9-20) mg/dL Creatinine 0.50 L (0.66-1.25) mg/dL Calcium 8.2 L (8.4-10.2) mg/dL Thrombosis Risk Factor Assmnt - DVT/VTE Prophylaxis DVT/VTE Prophylaxis: Pharmacologic Prophylaxis ordered Assessment and Plan Assessment: Abdominal distention with worsening ascites Alcoholic liver cirrhosis and prior history of paracentesis Hypokalemia Coronary artery disease with history of prior CABG 25 years ago and cardiac catheterization with stent placement Persistent atrial fibrillation on anticoagulation with Eliquis Ischemic cardiomyopathy status post ICD placement Chronic CHF history of dysfunction ejection fraction 20 to 25% Severe pulmonary hypertension Valvular heart disease with mild to moderate TR and mild mitral and aortic regurgitation Chronic hypoxic respiratory failure on 2-3 L oxygen via nasal cannula at home due to COPD COPD History of alcohol withdrawal seizures Alcohol use disorder Normocytic anemia and thrombocytopenia DVT prophylaxis patient is already on full anticoagulation Medical debility and unable to care for himself GI prophylaxis Plan: Patient will be continued on telemonitoring. Replace electrolytes and patient was given a dose of IV Lasix 20 mg x 1 as blood pressure tolerates. Continue with Bumex. Continue with other home medications including metoprolol and apixaban. Continue with aspirin, statins, metoprolol and Entresto. Started on thiamine and multivitamins. Ultrasound guided paracentesis was ordered. Continue with home medications. PT OT will be consulted and patient may need rehab transfer. Prognosis is guarded with multimedical problems and comorbid conditions. Time with Patient: Greater than 30
[2024-08-09 10:49] LABS: Basophils # (A) 0.05 X 10*3/uL (0.00-0.10); Basophils % (A) 1.1 %; Eosinophils # (A) 0.12 X 10*3/uL (0.04-0.35); Eosinophils % (A) 2.7 %; HCT 31.6 % (39.6-50.0); HGB 10.1 g/dL (13.0-17.0); Lymphocytes # (A) 0.75 X 10*3/uL (0.90-5.00); Lymphocytes % (A) 16.7 %; MCV 96.9 FL (80.0-97.0); Mean Platelet Volume 10.9 FL (9.5-12.2); Monocytes # (A) 0.33 X 10*3/uL (0.20-1.00); Monocytes % (A) 7.4 %; NRBC Per 100 WBC 0 X 10*3/uL (0.00-0.01); Neutrophils # (A) 3.22 X 10*3/uL (1.80-7.70); Neutrophils % (A) 71.9 %; Platelet Count 171 X 10*3/uL (140-440); RBC 3.26 X 10*6/uL (4.40-5.60); RDW 15.8 % (11.5-14.5); WBC 4.48 X 10*3/uL (4.50-10.00)
[2024-08-09 11:11] LABS: BUN/Creat Ratio 9.17 Ratio (12.00-20.00); Blood Urea Nitrogen 5.5 mg/dL (9.0-27.0); Calcium 8.5 mg/dL (8.7-10.3); Carbon Dioxide 29.5 mmol/L (21.6-31.8); Chloride 97 mmol/L (96-109); Glucose 74 mg/dL (70-110); Potassium 3.6 mmol/L (3.5-5.5); Sodium 134 mmol/L (135-145)
--- NOTE | 2024-08-10 05:26 | P.PN ---
Subjective Progress Note Date: 08/09/24 Patient is a 59-year-old male with a past medical history of COPD on home oxygen, coronary arteries with history of triple-vessel CABG approximately 25 years ago, cardiac catheterization and stent placement, ischemic cardiomyopathy status post ICD placement, ventricular tachycardia status post VT ablation, history of paracentesis, persistent atrial fibrillation, hypertension, peripheral vascular disease with prior bifemoral bypass in 2012, previous carotid endarterectomy in March 2020, history of left atrial appendage thrombus which is improved after anticoagulation, alcohol use disorder and nicotine addiction presents to ER with complaints of worsening generalized weakness, abdominal distention and unable to care for himself at home. Patient states that he is trying to quit alcohol and denied any recent use. Is also complaining of shortness of breath when he lies flat. No complaints of chest pain. No fever no chills. No cough or sputum production. Patient was recently admitted to hospital due to chest pain, syncopal episode which is multifactorial secondary to hypovolemia and hypotension and alcohol induced. He was discharged from the hospital on 08/01/2024. EKG showed atrial fibrillation Chest x-ray showed COPD with mild cardiomegaly and interstitial changes. Correlate for ongoing CHF with mild interstitial pulmonary edema. Increasing small left pleural effusion with adjacent atelectasis and/or consolidation. Laboratory data showed WBC 3.8 hemoglobin 9.8 and platelets 167 INR 1.4, sodium 131 potassium 3.2 chloride 93 bicarb is 32 BUN 6 and creatinine 0.5 and blood sugar 90 proBNP 1410 08/09/2024 Patient seen and evaluated in follow-up today and was initially scheduled to undergo paracentesis although Eliquis was received and IR recommend holding with possible paracentesis in the a.m. Patient reports to feeling abdominal distention although feels improved since admission. Patient continues with generalized weakness and will be evaluated by PT/OT therapy. Patient may benefit from rehab this patient was recently hospitalized and discharged home and has progressively become more weak. Patient is currently afebrile with no reports of chest pain or shortness of breath. Patient reports to feeling hungry and was n.p.o. for possible paracentesis. Will resume diet and make n.p.o. at midnight. Review of systems: Constitutional: No reports of fatigue, fever, or chills Cardiovascular: No reports of chest pain or palpitations Respiratory: No reports of worsening shortness of breath or cough GI: No reports of nausea, vomiting, or diarrhea, reports to feeling hungry : No reports of dysuria or retention Neurovascular: reports of generalized weakness and frequent recurrent falls or numbness All medications have been reviewed PHYSICAL EXAMINATION: Patient is currently sitting up in the bed, no acute distress, awake alert and oriented. Lethargic and weak.. Appears much older than stated age HEENT: Normocephalic. Neck is supple. Pupils reactive. Nostrils clear. Oral cavity is moist. Neck reveals no JVD, carotid bruits, or thyromegaly. CHEST EXAMINATION: Trachea is central. Symmetrical expansion. Bibasilar diminished sounds. CARDIAC: Normal S1, S2 with no gallops. No murmurs. Regular rhythm. ABDOMEN: Soft. Distended with ascites. Bowel sounds present. Organomegaly could not be appreciated. No abdominal bruits. Extremities: reveal no edema. No clubbing or cyanosis Neurologically awake, alert, oriented x3 with well-coordinated movements. No gross focal deficits noted Skin: No rash or skin lesions. Psychiatric: Cooperative. Non-suicidal Musculoskeletal: No joint swelling or deformity. Assessment: Abdominal distention with worsening ascites, awaiting to undergo paracentesis on 08/10/2024 Alcoholic liver cirrhosis and prior history of paracentesis Hypokalemia, improved after replacement Coronary artery disease with history of prior CABG 25 years ago and cardiac catheterization with stent placement Persistent atrial fibrillation on anticoagulation with Eliquis Ischemic cardiomyopathy status post ICD placement Chronic CHF history of dysfunction ejection fraction 20 to 25% Severe pulmonary hypertension Valvular heart disease with mild to moderate TR and mild mitral and aortic regurgitation Chronic hypoxic respiratory failure on 2-3 L oxygen via nasal cannula at home due to COPD COPD not in exacerbation History of alcohol withdrawal seizures Alcohol use disorder Normocytic anemia and thrombocytopenia DVT prophylaxis patient is already on full anticoagulation although currently being held for paracentesis Medical debility and unable to care for himself GI prophylaxis Full code Plan: Patient will be continued on telemonitoring. Replace electrolytes and patient was given a dose of IV Lasix 20 mg x 1 as blood pressure tolerates. Continue with Bumex. Continue with other home medications including metoprolol and apixaban. Eliquis being held per IR recommendations as patient will be undergoing paracentesis. Being rescheduled for 08/10/2024 due to receiving Eliquis Continue with aspirin, statins, metoprolol and Entresto. Started on thiamine and multivitamins. PT OT will be consulted and patient may need rehab transfer. Case management consult placed and will discuss further once PT/OT therapy has evaluated the patient Overall prognosis is guarded with multimedical problems and comorbid conditions. This is patient's second hospitalization regarding falls and weakness and feeling unable to care for himself. Patient does live alone and may benefit from ECF for continued strength and mobility. Awaiting PT/OT therapy notes The impression and plan of care has been dictated by Shira Irizarry, Nurse Practitioner as directed. Dr. Alessandro MD I have performed a history and examination and MDM of this patient, discussed the same with the dictator, and agree with the dictator's assessment and plan as written ,documented as a scribe. Based on total visit time, I have performed more than 50% of the visit. Objective - Vital Signs Vital signs: Vital Signs Temp 98.0 F 08/09/24 08:00 Pulse 58 L 08/09/24 08:00 Resp 16 08/09/24 08:00 BP 90/57 08/09/24 08:00 Pulse Ox 98 08/09/24 08:00 FiO2 Intake & Output 08/08/24 08/09/24 08/09/24 18:59 06:59 18:59 Output Total 2200 575 Balance -2200 -575 Weight 74.843 kg Output: Urine 2200 575 Other: # Bowel Movements 2 - Labs CBC & Chem 7: 08/09/24 07:11 08/09/24 07:11 Labs: Abnormal Lab Results - Last 24 Hours (Table) 08/08/24 Range/Units 15:45 PT 14.8 H (10.0-12.5) sec INR 1.4 H (<1.2)
[2024-08-10] MEDS: ALBUMIN HUMAN 25% 50 ML in EMPTY BAG 1 BAG IVPB SCH (10:35)
--- NOTE | 2024-08-10 15:23 | US ---
EXAMINATION TYPE: US paracentesis abd w/image DATE OF EXAM: 08/10/2024 CLINICAL HISTORY: 59-year-old male ascites and distention, alcohol use. Referred for paracentesis. The procedure was discussed with the patient. The risks, complications, benefits, and alternatives we re discussed and any questions were answered. Informed consent was obtained. The patient was placed s upine on the ultrasound table and prepped and draped in the usual sterile fashion. All elements of maximal barrier technique were utilized. Ultrasound was utilized to determine the precise skin entry site along the right lower quadrant. Utilizing trocar technique and a 6 Ma[place] safety AdWiredesis catheter system, access into the ascites co llection was obtained. A total of 3 liters of dark maroon fluid was removed. Catheter was removed, hemostasis obtained, and a dressing placed. The patient was stable throughout the procedure and remained stable upon discharge from Department of Radiology. IMPRESSION: Successful therapeutic paracentesis under ultrasound guidance. 3.0 L of dark maroon fluid removed. Th e patient reports previous paracentesis approximately one month ago also showing dark fluid. As we flores d suspected a larger ascites volume but only 3 L were aspirated, consider follow-up ultrasound to ass ess for residual fluid. [facility], , 08/10/2024 3:20 PM
--- NOTE | 2024-08-11 06:20 | P.PN ---
Subjective Progress Note Date: 08/10/24 Patient is a 59-year-old male with a past medical history of COPD on home oxygen, coronary arteries with history of triple-vessel CABG approximately 25 years ago, cardiac catheterization and stent placement, ischemic cardiomyopathy status post ICD placement, ventricular tachycardia status post VT ablation, history of paracentesis, persistent atrial fibrillation, hypertension, peripheral vascular disease with prior bifemoral bypass in 2012, previous carotid endarterectomy in March 2020, history of left atrial appendage thrombus which is improved after anticoagulation, alcohol use disorder and nicotine addiction presents to ER with complaints of worsening generalized weakness, abdominal distention and unable to care for himself at home. Patient states that he is trying to quit alcohol and denied any recent use. Is also complaining of shortness of breath when he lies flat. No complaints of chest pain. No fever no chills. No cough or sputum production. Patient was recently admitted to hospital due to chest pain, syncopal episode which is multifactorial secondary to hypovolemia and hypotension and alcohol induced. He was discharged from the hospital on 08/01/2024. EKG showed atrial fibrillation Chest x-ray showed COPD with mild cardiomegaly and interstitial changes. Correlate for ongoing CHF with mild interstitial pulmonary edema. Increasing small left pleural effusion with adjacent atelectasis and/or consolidation. Laboratory data showed WBC 3.8 hemoglobin 9.8 and platelets 167 INR 1.4, sodium 131 potassium 3.2 chloride 93 bicarb is 32 BUN 6 and creatinine 0.5 and blood sugar 90 proBNP 1410 08/09/2024 Patient seen and evaluated in follow-up today and was initially scheduled to undergo paracentesis although Eliquis was received and IR recommend holding with possible paracentesis in the a.m. Patient reports to feeling abdominal distention although feels improved since admission. Patient continues with generalized weakness and will be evaluated by PT/OT therapy. Patient may benefit from rehab this patient was recently hospitalized and discharged home and has progressively become more weak. Patient is currently afebrile with no reports of chest pain or shortness of breath. Patient reports to feeling hungry and was n.p.o. for possible paracentesis. Will resume diet and make n.p.o. at midnight. 08/10/2024 Patient is seen and evaluated in follow-up currently n.p.o. and scheduled to undergo paracentesis. Eliquis remains on hold at this time. Awaiting PT/OT therapy notes and case management is following. Patient may benefit from ECF for continued strength and mobility as patient has had frequent hospitalizations resulting in weakness and patient has poor social support. Review of systems: Constitutional: No reports of fatigue, fever, or chills Cardiovascular: No reports of chest pain or palpitations Respiratory: No reports of worsening shortness of breath or cough GI: No reports of nausea, vomiting, or diarrhea, reports to feeling hungry : No reports of dysuria or retention Neurovascular: reports of generalized weakness and frequent recurrent falls or numbness All medications have been reviewed PHYSICAL EXAMINATION: Patient is currently sitting up in the bed, no acute distress, awake alert and oriented. Lethargic and weak.. Appears much older than stated age HEENT: Normocephalic. Neck is supple. Pupils reactive. Nostrils clear. Oral cavity is moist. Neck reveals no JVD, carotid bruits, or thyromegaly. CHEST EXAMINATION: Trachea is central. Symmetrical expansion. Bibasilar diminished sounds. CARDIAC: Normal S1, S2 with no gallops. No murmurs. Regular rhythm. ABDOMEN: Soft. Distended with ascites. Bowel sounds present. Organomegaly could not be appreciated. No abdominal bruits. Extremities: reveal no edema. No clubbing or cyanosis Neurologically awake, alert, oriented x3 with well-coordinated movements. No g ross focal deficits noted Skin: No rash or skin lesions. Psychiatric: Cooperative. Non-suicidal Musculoskeletal: No joint swelling or deformity. Assessment: Abdominal distention with worsening ascites, awaiting to undergo paracentesis on 08/10/2024 Alcoholic liver cirrhosis and prior history of paracentesis Hypokalemia, improved after replacement Coronary artery disease with history of prior CABG 25 years ago and cardiac catheterization with stent placement Persistent atrial fibrillation on anticoagulation with Eliquis Ischemic cardiomyopathy status post ICD placement Chronic CHF history of dysfunction ejection fraction 20 to 25% Severe pulmonary hypertension Valvular heart disease with mild to moderate TR and mild mitral and aortic regurgitation Chronic hypoxic respiratory failure on 2-3 L oxygen via nasal cannula at home due to COPD COPD not in exacerbation History of alcohol withdrawal seizures Alcohol use disorder Normocytic anemia and thrombocytopenia DVT prophylaxis patient is already on full anticoagulation although currently being held for paracentesis Medical debility and unable to care for himself GI prophylaxis Full code Plan: Patient will be continued on telemonitoring. Replace electrolytes and patient was given a dose of IV Lasix 20 mg x 1 as blood pressure tolerates. Continue with Bumex. Continue with other home medications including metoprolol and apixa ban. Eliquis being held per IR recommendations as patient will be undergoing paracentesis today. May need albumin as blood pressures are chronically low Continue with aspirin, statins, metoprolol and Entresto. Started on thiamine and multivitamins. PT OT will be consulted and patient may need rehab transfer. Case management consult placed and will discuss further once PT/OT therapy has evaluated the patient. Patient may benefit from rehab for continued strength and mobility. Patient has had multiple hospitalizations regarding falls and weakness and inability to care for himself. Poor social support and would recommend ECF. Will discuss further with patient as he was also discussing going to inpatient alcohol rehab. Overall prognosis is guarded with multimedical problems and comorbid conditions. The impression and plan of care has been dictated by Shira Irizarry, Nurse Practitioner as directed. Dr. Alessandro MD I have performed a history and examination and MDM of this patient, discussed the same with the dictator, and agree with the dictator's assessment and plan as written ,documented as a scribe. Based on total visit time, I have performed more than 50% of the visit. Objective - Vital Signs Vital signs: Vital Signs Temp 98.3 F 08/10/24 07:36 Pulse 69 08/10/24 07:36 Resp 16 08/10/24 07:36 BP 101/59 08/10/24 07:36 Pulse Ox 92 L 08/10/24 07:36 FiO2 Intake & Output 08/09/24 08/10/24 08/10/24 18:59 06:59 18:59 Intake Total 2340 Output Total 900 300 Balance 1440 -300 Weight 74.843 kg 73 kg Intake: Oral 2340 Output: Urine 900 300 Other: Voiding Method Toilet Toilet Toilet Urinal Urinal Urinal # Voids 4 600 - Labs CBC & Chem 7: 08/09/24 07:11 08/09/24 07:11 Labs: Abnormal Lab Results - Last 24 Hours (Table) 08/09/24 08/09/24 Range/Units 07:11 07:11 WBC 4.48 L (4.50-10.00) X 10*3/uL RBC 3.26 L (4.40-5.60) X 10*6/uL Hgb 10.1 L (13.0-17.0) g/dL Hct 31.6 L (39.6-50.0) % RDW 15.8 H (11.5-14.5) % Lymphocytes # 0.75 L (0.90-5.00) X 10*3/uL Sodium 134 L (135-145) mmol/L BUN 5.5 L (9.0-27.0) mg/dL BUN/Creatinine Ratio 9.17 L (12.00-20.00) Ratio Calcium 8.5 L (8.7-10.3) mg/dL
[2024-08-11 13:51] VITALS: TEMP 98.3
[2024-08-11 16:09] VITALS: BP 96/60; PULSE 65; RESP 14
--- NOTE | 2024-08-16 19:42 | P.DS ---
Providers Date of admission: 08/08/24 11:25 Expected date of discharge: 08/11/24 Attending physician: Dolores Francois Primary care physician: Willie Kerr MD Hospital Course: Final diagnosis Abdominal distention with worsening ascites, status post paracentesis on 08/10/2024 with approximately 3 L removed Alcoholic liver cirrhosis and prior history of paracentesis Hypokalemia, improved after replacement Coronary artery disease with history of prior CABG 25 years ago and cardiac catheterization with stent placement Persistent atrial fibrillation on anticoagulation with Eliquis Ischemic cardiomyopathy status post ICD placement Chronic CHF history of systolic dysfunction ejection fraction 20 to 25% Severe pulmonary hypertension Valvular heart disease with mild to moderate TR and mild mitral and aortic regurgitation Chronic hypoxic respiratory failure on 2-3 L oxygen via nasal cannula at home due to COPD COPD not in exacerbation History of alcohol withdrawal seizures Alcohol use disorder Normocytic anemia and thrombocytopenia DVT prophylaxis patient is already on full anticoagulation Medical debility and unable to care for himself GI prophylaxis Full code Cyst Discharge disposition Patient is being discharged in a stable condition with guarded prognosis to home with plans on following up with [place] for inpatient alcohol rehab. Patient will follow-up with Dr. Kerr in the outpatient setting upon dischar ge. Patient is to continue with current medications and outpatient follow-up with cardiology as scheduled. Total time taken is greater than 35 minutes. Hospital course This is a 59-year-old male who was recently admitted with weakness and ascites with abdominal distention being closely monitored. Patient was recently hospitalized for alcohol withdrawal along with weakness and chest pain evaluated by cardiology recommending outpatient follow-up and medication compliance. Patient has been having more recurrent falls and progressive weakness initially came in for possible ECF. Patient had also been looking into checking into alcohol inpatient rehab. Patient was evaluated by physical therapy reporting he would benefit from rehab as he does not have much support at the home and ECF was attempted although was not excepted at [facility] and patient further declined going to rehab and reports he can handle it at home. Patient was provided resources and will be calling [place] for continued alcohol rehab as he wants to check in himself. Currently no reports of chest pain, shortness of breath, or palpitations. Patient is afebrile. No reports of nausea or vomiting and patient is tolerating diet. Patient will be discharged home with home care today. Guarded prognosis and high risk for readmissions given patient's noncompliance to medications and follow-up and continued alcohol use. Physical exam: Gen: This is a 59-year-old male who is awake, alert and oriented x 3, well- developed, elderly appearing, ill-appearing HEENT: Head is atraumatic, normocephalic. Pupils equal, round. Sclerae is anicteric. NECK: Supple. No JVD. No lymphadenopathy. No thyromegaly. LUNGS: Diminished breath sounds bilaterally otherwise clear to auscultation. No wheezes or rhonchi. No intercostal retractions. HEART: Regular rate and rhythm. No murmur. ABDOMEN: Soft. Distended bowel sounds are present. No masses. No tenderness. EXTREMITIES: No pedal edema. No calf tenderness. NEUROLOGICAL: Patient is awake, alert and oriented x3. Cranial nerves 2 through 12 are grossly intact. Please refer to medication reconciliation sheet for a list of medications. The impression and plan of care has been dictated by Shira Irizarry, Nurse Practitioner as directed. Dr. Alessandro MD I have performed a history and examination and MDM of this patient, discussed the same with the dictator, and agree with the dictator's assessment and plan as written ,documented as a scribe. Based on total visit time, I have performed more than 50% of the visit. Patient Condition at Discharge: Fair Plan - Discharge Summary Discharge Rx Participant: No New Discharge Prescriptions: New Midodrine [ProAmatine] 5 mg PO BID PRN #30 tablet PRN Reason: Hypotension Continue LORazepam 2 mg PO TID PRN PRN Reason: Anxiety HYDROcodone/APAP 10-325MG [[place] 10-325] 1 tab PO Q6H PRN PRN Reason: Pain Atorvastatin [Lipitor] 40 mg PO DAILY #30 tab Metoprolol Tartrate [Lopressor] 25 mg PO BID #60 tab Nicotine 21Mg/24Hr Patch [Habitrol] 1 patch TRANSDERM DAILY patch Magnesium Oxide [Mag-Ox] 400 mg PO TID #90 tab Potassium Chloride [K-Tab ER] 20 meq PO DAILY #30 tab Aspirin 81 mg PO DAILY #30 tab Bumetanide [BUMEX] 1 mg PO DAILY #30 tab Lactulose [Cephulac] 20 gm PO TID #2700 ml Apixaban [Eliquis] 5 mg PO BID #60 tab Dapagliflozin Propanediol [Farxiga] 10 mg PO DAILY #30 tab Thiamine [Vitamin B-1] 100 mg PO DAILY #14 tab Sacubitril/Valsartan [Entresto 24 mg-26 mg Tablet] 1 tab PO BID Discharge Medication List HYDROcodone/APAP 10-325MG [[place] 10-325] 1 tab PO Q6H PRN 07/19/24 [History] LORazepam 2 mg PO TID PRN 07/19/24 [History] Apixaban [Eliquis] 5 mg PO BID #60 tab 07/25/24 [Rx] Aspirin 81 mg PO DAILY #30 tab 07/25/24 [Rx] Atorvastatin [Lipitor] 40 mg PO DAILY #30 tab 07/25/24 [Rx] Bumetanide [BUMEX] 1 mg PO DAILY #30 tab 07/25/24 [Rx] Dapagliflozin Propanediol [Farxiga] 10 mg PO DAILY #30 tab 07/25/24 [Rx] Lactulose [Cephulac] 20 gm PO TID #2700 ml 07/25/24 [Rx] Metoprolol Tartrate [Lopressor] 25 mg PO BID #60 tab 07/25/24 [Rx] Thiamine [Vitamin B-1] 100 mg PO DAILY #14 tab 07/25/24 [Rx] Sacubitril/Valsartan [Entresto 24 mg-26 mg Tablet] 1 tab PO BID 07/29/24 [History] Magnesium Oxide [Mag-Ox] 400 mg PO TID #90 tab 08/01/24 [Rx] Nicotine 21Mg/24Hr Patch [Habitrol] 1 patch TRANSDERM DAILY patch 08/01/24 [Rx] Potassium Chloride [K-Tab ER] 20 meq PO DAILY #30 tab 08/01/24 [Rx] Midodrine [ProAmatine] 5 mg PO BID PRN #30 tablet 08/11/24 [Rx] Follow up Appointment(s)/Referral(s): Willie Kerr MD [Primary Care Provider] - 1-2 days (Please call and schedule appointment- office is closed) Patient Instructions/Handouts: Midodrine (By mouth), Ascites (DC) Activity/Diet/Wound Care/Special Instructions: Activity limited until follow-up Follow-up with primary care provider Follow-up with general surgery Follow-up with GI outpatient Continue taking medications as prescribed Monitor blood pressure daily and keep a diary of all readings for primary and cardiology follow-up. If top number of blood pressure is 100 or greater (systolic), recommend holding blood pressure medications and call primary care provider Recommend inpatient alcohol rehab Discharge/Stand Alone Forms: [facility] Pamphlet, Who Do I Call?, Community Resources, Help In The Home, Outpatient Counseling Discharge Disposition: HOME SELF-CARE
== END 2024-08-11 18:34 | disposition home or self-care (01) | DRG 433 ==
LOC: EC 08:17 → 5NMEDONC 11:25
PROVIDERS: ADMIT Internal Medicine; ATTEND Internal Medicine
PROC: 0W9G3ZZ Drainage of Peritoneal Cavity, Percutaneous Approach (ICD-10-PCS; principal; 2024-08-10)
DX: K70.31 Alcoholic cirrhosis of liver with ascites (principal); I48.19 Other persistent atrial fibrillation; I50.22 Chronic systolic (congestive) heart failure; J96.11 Chronic respiratory failure with hypoxia; D69.6 Thrombocytopenia, unspecified; I27.20 Pulmonary hypertension, unspecified; I73.9 Peripheral vascular disease, unspecified; I11.0 Hypertensive heart disease with heart failure; J44.9 Chronic obstructive pulmonary disease, unspecified; F10.20 Alcohol dependence, uncomplicated; E86.1 Hypovolemia; Z79.01 Long term (current) use of anticoagulants; Z99.81 Dependence on supplemental oxygen; Z95.1 Presence of aortocoronary bypass graft; D64.9 Anemia, unspecified; I08.3 Combined rheumatic disorders of mitral, aortic and tricuspid valves; Z95.820 Peripheral vascular angioplasty status with implants and grafts; I25.5 Ischemic cardiomyopathy; R29.6 Repeated falls; F17.210 Nicotine dependence, cigarettes, uncomplicated; I25.10 Atherosclerotic heart disease of native coronary artery without angina pectoris; E87.6 Hypokalemia; Z60.8 Other problems related to social environment; R53.81 Other malaise; Z91.148 Patient's other noncompliance with medication regimen for other reason; Z79.82 Long term (current) use of aspirin; Z79.84 Long term (current) use of oral hypoglycemic drugs; Z95.810 Presence of automatic (implantable) cardiac defibrillator; Z91.81 History of falling; Z95.5 Presence of coronary angioplasty implant and graft; I25.2 Old myocardial infarction; Z79.899 Other long term (current) drug therapy
CPT/HCPCS: 36415; 49083; 71046; 76705; 80048; 82607; 82747; 83880; 85025; 85610; 93005; 96374; 99285

== ENCOUNTER 2024-09-29 21:54 | Observation (INO) | payer MEDICARE, OTHER ==
[2024-09-29 22:04] VITALS: TEMP 97.9
[2024-09-29] MEDS: NITROGLYCERIN SL TABS 0.4 MG TAB SUBLINGUAL STA (22:22)
[2024-09-29 22:25] LABS: Basophils % (A) 1 %; Eosinophils # (A) 0.1 k/uL (0-0.7); Eosinophils % (A) 4 %; HCT 29.8 % (39.0-53.0); HGB 9.1 gm/dL (13.0-17.5); Hypochromasia Marked; Lymphocytes # (A) 0.7 k/uL (1.0-4.8); Lymphocytes % (A) 21 %; MCH 27.2 pg (25.0-35.0); MCHC 30.6 g/dL (31.0-37.0); Mean Platelet Volume 8.1; Monocytes # (A) 0.2 k/uL (0-1.0); Monocytes % (A) 7 %; Neutrophils % (A) 64 %; Platelet Count 132 k/uL (150-450); Poikilocytosis Slight; RBC 3.36 m/uL (4.30-5.90); RDW 15.7 % (11.5-15.5); WBC 3.2 k/uL (3.8-10.6)
[2024-09-29] MEDS: HEPARIN SODIUM 1,000 UN/ML (10ML VL) IV ONE (22:28)
[2024-09-29] MEDS: HEPARIN SOD,PORK IN 0.45% NACL 25,000 UNIT in 0.45% NACL 1 250ML.BAG IV SCH (22:29)
[2024-09-29] MEDS: METOPROLOL TARTRATE 25 MG TAB PO STA (22:34)
--- NOTE | 2024-09-29 22:34 | ED ---
General Adult HPI - General Chief complaint: Chest Pain Stated complaint: chest pain Time Seen by Provider: 09/29/24 22:09 Source: patient, RN notes reviewed, old records reviewed Mode of arrival: EMS Limitations: no limitations - History of Present Illness Initial comments: Patient is a 59-year-old male with extensive past medical history for cardiac disease. Has a history of fibrillation with pacemaker, CABG, COPD, hypertension, CAD with AK, prior history of alcohol abuse last drink in July 2024, bifemoral bypass. This presents emergency department for chest pain for 2 days. States chest pain started yesterday. Located substernal and left side of the chest. States it is a pressure achy sensation with radiation to the left jaw. States it became worse earlier this evening which is why he called EMS for further evaluation. Has not been having any significant exertion. Denies any other symptoms with it including denying diaphoresis, nausea, vomiting, shortness of breath, lightheadedness. Denies any abdominal pain. States no recent alcohol use. Has no other acute complaints at this time. States he is uncertain if he took his medications today. States when he had issues with his heart in the past, this is somewhat similar. States he received 324 mg of aspirin as well as 1 nitroglycerin tablet from EMS. States pain is much more manageable at this time, and a 2 or 3. - Related Data Home Medications Medication Instructions Recorded Confirmed HYDROcodone/APAP 10-325MG [[place] 1 tab PO Q6H PRN 07/19/24 08/08/24 10-325] LORazepam 2 mg PO TID PRN 07/19/24 08/08/24 Sacubitril/Valsartan [Entresto 24 1 tab PO BID 07/29/24 08/08/24 mg-26 mg Tablet] Previous Rx's Medication Instructions Recorded Apixaban [Eliquis] 5 mg PO BID #60 tab 07/25/24 Aspirin 81 mg PO DAILY #30 tab 07/25/24 Atorvastatin [Lipitor] 40 mg PO DAILY #30 tab 07/25/24 Bumetanide [BUMEX] 1 mg PO DAILY #30 tab 07/25/24 Dapagliflozin Propanediol [Farxiga] 10 mg PO DAILY #30 tab 07/25/24 Lactulose [Cephulac] 20 gm PO TID #2700 ml 07/25/24 Metoprolol Tartrate [Lopressor] 25 mg PO BID #60 tab 07/25/24 Thiamine [Vitamin B-1] 100 mg PO DAILY #14 tab 07/25/24 Magnesium Oxide [Mag-Ox] 400 mg PO TID #90 tab 08/01/24 Nicotine 21Mg/24Hr Patch [Habitrol] 1 patch TRANSDERM DAILY patch 08/01/24 Potassium Chloride [K-Tab ER] 20 meq PO DAILY #30 tab 08/01/24 Midodrine [ProAmatine] 5 mg PO BID PRN #30 tablet 08/11/24 Allergies Allergy/AdvReac Type Severity Reaction Status Date / Time chloroxine [From Capitrol] AdvReac Rash/Hives Verified 09/29/24 22:04 Review of Systems ROS Statement: Those systems with pertinent positive or pertinent negative responses have been documented in the HPI. Review of Systems: CONST: Denies fever EYES: Denies blurry vision ENT: Denies nasal congestion C/V: Endorses chest pain RESP: Denies shortness of breath GI: Denies abdominal pain : Denies dysuria SKIN: Denies rash. MSK: Denies joint pain. NEURO: Denies headache ROS Other: All systems not noted in ROS Statement are negative. Past Medical History Past Medical History: Atrial Fibrillation, Chest Pain / Angina, Heart Failure, COPD, Hypertension, Liver Disease, Myocardial Infarction (AK), Respiratory Disorder, Syncope Additional Past Medical History / Comment(s): Home oxygen use@2-3L PRN COPD - says has oxygen at home but doesn't wear it, AK- patient reports having 3-4 AK's, + CABG -triple bypass scar, + AICD/PCCM "I have a machine inside that sends all the info to my heart doctor" , Abdominal Hernia surgery x2, paracentesis as needed- last times was at [facility] about 4 months ago per patient Last Myocardial Infarction Date:: 1992 History of Any Multi-Drug Resistant Organisms: None Reported Past Surgical History: AICD, Cholecystectomy, Coronary Bypass/CABG, Heart Catheterization With Stent, Hernia Repair, Pacemaker Additional Past Surgical History / Comment(s): CABG, AICD/Pacemaker placed about 10 years ago per patient 07/19/24, Hernia repair abdominal x2 Past Anesthesia/Blood Transfusion Reactions: No Reported Reaction Date of Last Stent Placement:: 1992 Type of Cardiac Device: Permanent Pacemaker, AICD Device Placement Date:: 1992 Past Psychological History: Anxiety Smoking Status: Current every day smoker Past Alcohol Use History: Occasional Past Drug Use History: Marijuana - Past Family History Mother Family Medical History: Cancer Father Family Medical History: Cancer General Exam - General Exam Comments Initial Comments: General: Appears in no acute distress. HEAD: Normal with no signs of head trauma. EYES: PERRLA, EOMI, conjunctiva normal, no discharge. ENT: Hearing grossly intact, normal oropharynx. RESPIRATORY: Clear breath sounds bilaterally. No wheezes, rales, or rhonchi. C/V: Irregular rate and rhythm. S1 and S2 auscultated, no significant lower extremity edema, peripheral pulses 2+ and intact throughout ABD: Abd is soft, nontender, nondistended EXT: Normal range of motion, no obvious deformity SKIN: No rashes or lesions observed on exposed skin. NEURO: Alert and oriented x 4. Limitations: no limitations Course Vital Signs 09/29/24 21:58 Temperature 97.9 F Pulse Rate 82 Respiratory 18 Rate Blood Pressure 152/78 O2 Sat by Pulse 95 Oximetry Medical Decision Making - Medical Decision Making Was pt. sent in by a medical professional or institution (, PA, SURGICAL ASSISTANT CERTIFIED, urgent care, hospital, or snf...) When possible be specific @ -No Did you speak to anyone other than the patient for history (EMS, parent, family, police, friend...)? What history was obtained from this source @ -No Did you review nursing and triage notes (agree or disagree)? Why? @ -I reviewed and agree with nursing and triage notes Were old charts reviewed (outside hosp., previous admission, EMS record, old EKG, old radiological studies, urgent care reports/EKG's, snf records)? Report findings @ -Old charts reviewed including EKGs from July 2024. EKG at that time did show the ST segment depressions in the lateral precordial leads which are redemonstrated today. Differential Diagnosis (chest pain, altered mental status, abdominal pain women, abdominal pain men, vaginal bleeding, weakness, fever, dyspnea, syncope, headache, dizziness, GI bleed, back pain, seizure, CVA, palpatations, mental health, musculoskeletal)? @ -Differential Chest Pain: Stable Angina, Unstable Angina, STEMI, NSTEMI Aortic Dissection, Pneumothorax, Musculoskeletal, Esophageal Spasm GERD, Cholecystitis, Pancreatitis, Zoster, this is not meant to be an all-inclusive list. EKG interpreted by me (3pts min.). @ -As above X-rays interpreted by me (1pt min.). @ -Chest x-ray reveals no obvious acute cardiopulmonary process. CT interpreted by me (1pt min.). @ -None done U/S interpreted by me (1pt. min.). @ -None done What testing was considered but not performed or refused? (CT, X-rays, U/S, labs)? Why? @ -None What meds were considered but not given or refused? Why? @ -Considered administering 324 mg of aspirin but patient already received this from EMS. Did you discuss the management of the patient with other professionals (professionals i.e. , PA, SURGICAL ASSISTANT CERTIFIED, lab, RT, psych nurse, social worker assistant, internal investigator, teacher, civil preparedness training officer, housing case manager)? Give summary @ -No Was smoking cessation discussed for >3mins.? @ -No Was critical care preformed (if so, how long)? @ -yes, 36 minutes Were there social determinants of health that impacted care today? How? (Homelessness, low income, unemployed, alcoholism, drug addiction, transportation, low edu. Level, literacy, decrease access to med. care, fdc, rehab)? @ -No Was there de-escalation of care discussed even if they declined (Discuss DNR or withdrawal of care, Hospice)? DNR status @ -No What co-morbidities impacted this encounter? (DM, HTN, Smoking, COPD, CAD, Cancer, CVA, ARF, Chemo, Hep., AIDS, mental health diagnosis, sleep apnea, morbid obesity)? @ -CAD, CABG, atrial fibrillation, pacemaker. Was patient admitted / discharged? Hospital course, mention meds given and route, prescriptions, significant lab abnormalities, going to OR and other pertinent info. @ -Based on patient's presentation and physical exam, presents with chest pain with radiation to the left jaw. Pain is currently improved following nitro administration by EMS. We will administer an additional nitro tablet as well as start the patient on heparin due to the typical sounding chest pain and concern for ACS. States chest pain is much improved from earlier today but symptoms have been ongoing for 2 days. We will obtain cardiac workup. Vitals currently within acceptable limits. Not take evening medications. EKG x 2 reveals no dynamic changes but does show ST segment depressions that are mild in V5 and slightly larger in V6. This does seem chronic as it is redemonstrated on EKGs from back in July 2024. Chest x-ray reveals no obvious acute cardiopulmonary process. Laboratory studies are remarkable for chronic anemia with a hemoglobin of 9.1 which appears in his baseline. Patient has a hypokalemia of 2.9 as well as a hypomagnesemia of 1.4. Troponin is indeterminate at 0.028, BNP is slightly elevated at 1690 however clinically is not presenting as CHF exacerbation at this time. On reevaluation, chest pain and jaw and neck pain have resolved. We will keep the patient on Nitropaste as well as the heparin drip. There is concern for ACS and he was in agreement. Potassium and magnesium will be supplemented. Vital signs are within acceptable limits. He will be admitted with cardiology evaluation as well as echo ordered. Patient was in agreement this plan. I spoke with HEAVEN Silva of [facility] who accepted the admission. Undiagnosed new problem with uncertain prognosis? @ -No Drug Therapy requiring intensive monitoring for toxicity (Heparin, Nitro, Insulin, Cardizem)? @ -Heparin Were any procedures done? @ -No Diagnosis/symptom? @ -Chest pain, hypomagnesemia, hypokalemia Acute, or Chronic, or Acute on Chronic? @ -Acute Uncomplicated (without systemic symptoms) or Complicated (systemic symptoms)? @ -Complicated Side effects of treatment? @ -None Exacerbation, Progression, or Severe Exacerbation] @ -No Poses a threat to life or bodily function? @ -Potentially, yes - Lab Data Result diagrams: 09/29/24 22:15 09/29/24 22:15 Lab Results 09/29/24 09/29/24 09/29/24 Range/Units 22:15 22:15 22:15 WBC 3.2 L (3.8-10.6) k/uL RBC 3.36 L (4.30-5.90) m/uL Hgb 9.1 L (13.0-17.5) gm/dL Hct 29.8 L (39.0-53.0) % MCV 88.8 D (80.0-100.0) fL MCH 27.2 (25.0-35.0) pg MCHC 30.6 L (31.0-37.0) g/dL RDW 15.7 H (11.5-15.5) % Plt Count 132 L (150-450) k/uL MPV 8.1 Neutrophils % 64 % Lymphocytes % 21 % Monocytes % 7 % Eosinophils % 4 % Basophils % 1 % Neutrophils # 2.0 (1.3-7.7) k/uL Lymphocytes # 0.7 L (1.0-4.8) k/uL Monocytes # 0.2 (0-1.0) k/uL Eosinophils # 0.1 (0-0.7) k/uL Basophils # 0.0 (0-0.2) k/uL Manual Slide Review Performed Hypochromasia Marked Poikilocytosis Slight Anisocytosis (manual) Present Tear Drop Cells Present Fragmented RBCs Present PT 13.2 H (10.0-12.5) sec INR 1.2 H (<1.2) APTT 27.0 (22.0-30.0) sec Sodium 132 L (137-145) mmol/L Potassium 2.9 L (3.5-5.1) mmol/L Chloride 100 (98-107) mmol/L Carbon Dioxide 29 (22-30) mmol/L Anion Gap 3 mmol/L BUN 10 (9-20) mg/dL Creatinine 0.56 L (0.66-1.25) mg/dL Est GFR (CKD-EPI)AfAm >90 (>60 ml/min/1.73 sqM) Est GFR (CKD-EPI)NonAf >90 (>60 ml/min/1.73 sqM) Glucose 94 (74-99) mg/dL Calcium 8.8 (8.4-10.2) mg/dL Magnesium 1.4 L (1.6-2.3) mg/dL Total Bilirubin 1.3 (0.2-1.3) mg/dL AST 32 (17-59) U/L ALT 15 (4-49) U/L Alkaline Phosphatase 133 H (38-126) U/L Troponin I (0.000-0.034) ng/mL NT-Pro-B Natriuret Pep 1690 pg/mL Total Protein 6.7 (6.3-8.2) g/dL Albumin 3.5 (3.5-5.0) g/dL Serum Alcohol mg/dL 09/29/24 09/29/24 Range/Units 22:15 22:25 WBC (3.8-10.6) k/uL RBC (4.30-5.90) m/uL Hgb (13.0-17.5) gm/dL Hct (39.0-53.0) % MCV (80.0-100.0) fL MCH (25.0-35.0) pg MCHC (31.0-37.0) g/dL RDW (11.5-15.5) % Plt Count (150-450) k/uL MPV Neutrophils % % Lymphocytes % % Monocytes % % Eosinophils % % Basophils % % Neutrophils # (1.3-7.7) k/uL Lymphocytes # (1.0-4.8) k/uL Monocytes # (0-1.0) k/uL Eosinophils # (0-0.7) k/uL Basophils # (0-0.2) k/uL Manual Slide Review Hypochromasia Poikilocytosis Anisocytosis (manual) Tear Drop Cells Fragmented RBCs PT (10.0-12.5) sec INR (<1.2) APTT (22.0-30.0) sec Sodium (137-145) mmol/L Potassium (3.5-5.1) mmol/L Chloride (98-107) mmol/L Carbon Dioxide (22-30) mmol/L Anion Gap mmol/L BUN (9-20) mg/dL Creatinine (0.66-1.25) mg/dL Est GFR (CKD-EPI)AfAm (>60 ml/min/1.73 sqM) Est GFR (CKD-EPI)NonAf (>60 ml/min/1.73 sqM) Glucose (74-99) mg/dL Calcium (8.4-10.2) mg/dL Magnesium (1.6-2.3) mg/dL Total Bilirubin (0.2-1.3) mg/dL AST (17-59) U/L ALT (4-49) U/L Alkaline Phosphatase (38-126) U/L Troponin I 0.028 (0.000-0.034) ng/mL NT-Pro-B Natriuret Pep pg/mL Total Protein (6.3-8.2) g/dL Albumin (3.5-5.0) g/dL Serum Alcohol <10 mg/dL - EKG Data -: EKG Interpreted by Me EKG Comments: 12-lead Electrocardiogram Interpretation Note EKG was reviewed and interpreted by myself. 12-lead ECG performed at 2211 is interpreted by me as revealing atrial fibrillation at a rate of 85 beats per minute. [place] is normal. QRS duration is 120 ms, QTc is 457 ms.. Patient does have ST segment depressions, very slightly in lead V5 as well as 1 to 2 boxes and V6. This has been seen on prior EKGs for the patient from July 2024. Patient currently not in a paced rhythm.. R wave progression across the precordium was delayed. 12-lead Electrocardiogram Interpretation Note EKG was reviewed and interpreted by myself. 12-lead ECG performed at 2226 is interpreted by me as revealing atrial fibrillation at a rate of 77 beats per minute. [place] is normal. QRS duration is 117 ms, QTc is 451 ms.. Demonstration of mild ST segment depressions in V5 which does seem somewhat improved on this EKG. ST segment depression in V6 also improved. Once again these are seen on prior EKGs from July 2024.. R wave progression across the precordium was delayed.. No significant dynamic changes. Critical Care Time Critical Care Time: Yes Total Critical Care Time: 36 Disposition Clinical Impression: Chest pain, Hypomagnesemia, Hypokalemia Disposition: ADMITTED IP TO THIS [facility] Condition: Stable Time of Disposition: 23:25
[2024-09-29 22:35] LABS: ALT 15 U/L (4-49); AST 32 U/L (17-59); African American GFR (CKD) >90 (>60 ml/min/1.73 sqM); Albumin 3.5 g/dL (3.5-5.0); Alkaline Phosphatase 133 U/L (38-126); Anion Gap 3 mmol/L; Blood Urea Nitrogen 10 mg/dL (9-20); Calcium 8.8 mg/dL (8.4-10.2); Carbon Dioxide 29 mmol/L (22-30); Chloride 100 mmol/L (98-107); Glucose 94 mg/dL (74-99); Magnesium 1.4 mg/dL (1.6-2.3); Non-African American GFR(CKD) >90 (>60 ml/min/1.73 sqM); Potassium 2.9 mmol/L (3.5-5.1); Sodium 132 mmol/L (137-145); Total Bilirubin 1.3 mg/dL (0.2-1.3); Total Protein 6.7 g/dL (6.3-8.2)
[2024-09-29] MEDS ORDERED: Potassium Replacement Protocol 1 EACH MISC MISCELLANE PRN (22:40)
[2024-09-29 22:42] LABS: MCV 88.8 fL (80.0-100.0)
[2024-09-29 22:44] LABS: NT-Pro-B-Type Natriuretic Pept 1690 pg/mL
[2024-09-29] MEDS: POTASSIUM CHLORIDE ER 20 MEQ TAB.ER PO SCH (22:47)
[2024-09-29] MEDS: NITROGLYCERIN OINT 1 INCH/GM PACKET TOPICAL SCH (22:47)
[2024-09-29 22:51] LABS: INR 1.2 (<1.2); Prothrombin Time 13.2 sec (10.0-12.5)
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
[2024-09-29] MEDS ORDERED: ONDANSETRON 4 MG/2 ML VIAL IVP PRN (23:27)
[2024-09-29] MEDS ORDERED: NALOXONE 0.4 MG/ML 1 ML VIAL IV PRN (23:27)
[2024-09-29 23:52] LABS: Anisocytosis (M) Present; RBC Fragments Present; Tear Drop Cells Present
[2024-09-30] MEDS ORDERED: MIDODRINE 5 MG TAB PO PRN (00:51)
[2024-09-30 04:44] LABS: ALT 16 U/L (4-49); AST 33 U/L (17-59); African American GFR (CKD) >90 (>60 ml/min/1.73 sqM); Albumin 3.6 g/dL (3.5-5.0); Alkaline Phosphatase 129 U/L (38-126); Anion Gap 5 mmol/L; Blood Urea Nitrogen 11 mg/dL (9-20); Calcium 8.9 mg/dL (8.4-10.2); Carbon Dioxide 29 mmol/L (22-30); Chloride 99 mmol/L (98-107); Glucose 85 mg/dL (74-99); Non-African American GFR(CKD) >90 (>60 ml/min/1.73 sqM); Potassium 3.8 mmol/L (3.5-5.1); Sodium 133 mmol/L (137-145); Total Bilirubin 1.7 mg/dL (0.2-1.3); Total Protein 6.7 g/dL (6.3-8.2)
[2024-09-30 04:46] LABS: Basophils % (A) 0 %; Eosinophils # (A) 0.1 k/uL (0-0.7); Eosinophils % (A) 4 %; HCT 30.3 % (39.0-53.0); HGB 9.6 gm/dL (13.0-17.5); Hypochromasia Marked; INR 1.2 (<1.2); Lymphocytes # (A) 0.7 k/uL (1.0-4.8); Lymphocytes % (A) 21 %; MCH 28.2 pg (25.0-35.0); MCHC 31.7 g/dL (31.0-37.0); MCV 88.9 fL (80.0-100.0); Mean Platelet Volume 8.6; Monocytes # (A) 0.3 k/uL (0-1.0); Monocytes % (A) 9 %; Neutrophils # (A) 2.2 k/uL (1.3-7.7); Neutrophils % (A) 63 %; Partial Thromboplastin Time 35.1 sec (22.0-30.0); Platelet Count 138 k/uL (150-450); Poikilocytosis Slight; RBC 3.41 m/uL (4.30-5.90); RDW 15.5 % (11.5-15.5); WBC 3.4 k/uL (3.8-10.6)
[2024-09-30] MEDS: HEPARIN SODIUM 1,000 UN/ML (10ML VL) IV PRN (06:22)
[2024-09-30] MEDS ORDERED: SACUBITRIL/VALSARTAN 24 MG-26 MG TABLET PO SCH ×2 (09:00→21:00)
[2024-09-30] MEDS: BUMETANIDE 1 MG TAB PO SCH (09:07)
[2024-09-30] MEDS: ATORVASTATIN 40 MG TAB PO SCH (09:07)
[2024-09-30] MEDS: METOPROLOL TARTRATE 25 MG TAB PO SCH (09:08)
[2024-09-30] MEDS: ASPIRIN 81 MG PO SCH (09:08)
[2024-09-30] MEDS: APIXABAN 5 MG TAB PO SCH (10:06)
--- NOTE | 2024-09-30 12:19 | P.HPIM ---
History of Present Illness 59-year-old pleasant male with known history of coronary artery disease, congestive heart failure EF of around 20 to 25%, cirrhosis came in with complaints of chest pressure-like sensation started yesterday improved with nitroglycerin. Patient had CABG 25 years ago and stents after that and recently had stress test few months ago. Troponins were negative EKG did not show any acute ST-T wave changes evaluated by cardiology cleared by cardiology. Patient clinically is euvolemic takes Bumex at home mildly hyponatremic hypomagnesemic and hypokalemic patient takes potassium at home as well. Patient is also on Entresto. REVIEW OF SYSTEMS: All other systems are negative except those mentioned in the HPI PHYSICAL EXAMINATION: GENERAL: The patient is alert and oriented x3, not in any acute distress. Well developed, well nourished. HEENT: Pupils are round and equally reacting to light. EOMI. No scleral icterus. No conjunctival pallor. Normocephalic, atraumatic. No pharyngeal erythema. No thyromegaly. CARDIOVASCULAR: S1 and S2 present. No murmurs, rubs, or gallops. PULMONARY: Chest is clear to auscultation, no wheezing or crackles. ABDOMEN: Soft, nontender, nondistended, normoactive bowel sounds. No palpable organomegaly. MUSCULOSKELETAL: No joint swelling or deformity. EXTREMITIES: No cyanosis, clubbing, or pedal edema. NEUROLOGICAL: Gross neurological examination did not reveal any focal deficits. SKIN: No rashes. Assessment and plan -Chest pain rule out acute coronary syndrome evaluated by cardiology cleared by cardiology patient will be discharged today without any medication changes at this time -Congestive heart failure chronic systolic function without any acute exacerbation patient has ischemic cardiomyopathy patient is bit hyponatremic but will be resumed on Bumex potassium supplementation. Patient will be continued on Entresto beta-glenda. Mild hyponatremia secondary to diuretics -Coronary artery disease resumed on home medications -History of alcoholic cirrhosis recently quit alcohol -Continue with continues to smoke extensive counseling regarding this was provided -Hypokalemia and hypomagnesemia both will be replaced -Chronic normocytic anemia and thrombocytopenia no further intervention at this time probably alcoholism related bone marrow suppression Patient will be discharged today will need basic metabolic profile and magnesium levels when he visits his primary doctor next Wednesday patient will resume potassium supplementation patient is also on Entresto we will continue with his Bumex Past Medical History Past Medical History: Atrial Fibrillation, Chest Pain / Angina, Heart Failure, COPD, Hypertension, Liver Disease, Myocardial Infarction ([place]), Respiratory Disorder, Syncope Additional Past Medical History / Comment(s): Home oxygen use@2-3L PRN COPD - says has oxygen at home but doesn't wear it, [place]- patient reports having 3-4 TX's, + CABG -triple bypass scar, + AICD/PCCM "I have a machine inside that sends all the info to my heart doctor" , Abdominal Hernia surgery x2, paracentesis as needed- last times was at [facility] about 4 months ago per patient Last Myocardial Infarction Date:: 1992 History of Any Multi-Drug Resistant Organisms: None Reported Past Surgical History: AICD, Cholecystectomy, Coronary Bypass/CABG, Heart Catheterization With Stent, Hernia Repair, Pacemaker Additional Past Surgical History / Comment(s): CABG, AICD/Pacemaker placed about 10 years ago per patient 07/19/24, Hernia repair abdominal x2 Past Anesthesia/Blood Transfusion Reactions: No Reported Reaction Date of Last Stent Placement:: 1992 Type of Cardiac Device: Permanent Pacemaker, AICD Device Placement Date:: 1992 Past Psychological History: Anxiety Smoking Status: Current every day smoker Past Alcohol Use History: Occasional Past Drug Use History: Marijuana - Past Family History Mother Family Medical History: Cancer Father Family Medical History: Cancer Medications and Allergies Home Medications Medication Instructions Recorded Confirmed Type HYDROcodone/APAP 10-325MG [[place] 1 tab PO Q6H PRN 07/19/24 09/30/24 History 10-325] LORazepam 2 mg PO TID PRN 07/19/24 09/30/24 History Apixaban [Eliquis] 5 mg PO BID #60 tab 07/25/24 09/30/24 Rx Aspirin 81 mg PO DAILY #30 tab 07/25/24 09/30/24 Rx Atorvastatin [Lipitor] 40 mg PO DAILY #30 tab 07/25/24 09/30/24 Rx Bumetanide [BUMEX] 1 mg PO DAILY #30 tab 07/25/24 09/30/24 Rx Metoprolol Tartrate [Lopressor] 25 mg PO BID #60 tab 07/25/24 09/30/24 Rx Potassium Chloride [K-Tab ER] 20 meq PO DAILY #30 tab 08/01/24 09/30/24 Rx Midodrine [ProAmatine] 5 mg PO BID PRN #30 tablet 08/11/24 09/30/24 Rx Empagliflozin [Jardiance] 10 mg PO DAILY 09/30/24 09/30/24 History Pantoprazole Sodium [Protonix] 20 mg PO DAILY 09/30/24 09/30/24 History Allergies Allergy/AdvReac Type Severity Reaction Status Date / Time chloroxine [From Capitrol] AdvReac Rash/Hives Verified 09/30/24 08:53 Physical Exam Vitals: Vital Signs Temp Pulse Resp BP Pulse Ox 09/30/24 10:32 68 18 123/71 98 09/30/24 08:00 78 18 105/77 98 09/30/24 07:00 64 18 116/70 98 09/30/24 06:00 71 18 112/70 92 L 09/30/24 03:04 66 18 111/77 95 09/29/24 21:58 97.9 F 82 18 152/78 95 Intake and Output 09/29/24 09/30/24 09/30/24 22:59 06:59 14:59 Intake Total 69.902 Balance 69.902 Intake: Intake, IV Titration 69.902 Amount Heparin Sod,Pork in 0.45% 69.902 NaCl 25,000 unit In 0.45 % NaCl 1 250ml.bag @ 12 UNITS/KG/HR 8.981 mls/hr IV .Q24H [facility] Rx#: [id number] Other: Weight 74.843 kg Results CBC & Chem 7: 09/30/24 04:13 09/30/24 04:13 Labs: Abnormal Lab Results - Last 24 Hours (Table) 09/29/24 09/29/24 09/29/24 Range/Units 22:15 22:15 22:15 WBC 3.2 L (3.8-10.6) k/uL RBC 3.36 L (4.30-5.90) m/uL Hgb 9.1 L (13.0-17.5) gm/dL Hct 29.8 L (39.0-53.0) % MCHC 30.6 L (31.0-37.0) g/dL RDW 15.7 H (11.5-15.5) % Plt Count 132 L (150-450) k/uL Lymphocytes # 0.7 L (1.0-4.8) k/uL PT 13.2 H (10.0-12.5) sec INR 1.2 H (<1.2) APTT (22.0-30.0) sec Sodium 132 L (137-145) mmol/L Potassium 2.9 L (3.5-5.1) mmol/L Creatinine 0.56 L (0.66-1.25) mg/dL Magnesium 1.4 L (1.6-2.3) mg/dL Total Bilirubin (0.2-1.3) mg/dL Alkaline Phosphatase 133 H (38-126) U/L 09/30/24 09/30/24 09/30/24 Range/Units 04:13 04:13 04:13 WBC 3.4 L (3.8-10.6) k/uL RBC 3.41 L (4.30-5.90) m/uL Hgb 9.6 L (13.0-17.5) gm/dL Hct 30.3 L (39.0-53.0) % MCHC (31.0-37.0) g/dL RDW (11.5-15.5) % Plt Count 138 L (150-450) k/uL Lymphocytes # 0.7 L (1.0-4.8) k/uL PT 13.0 H (10.0-12.5) sec INR 1.2 H (<1.2) APTT 35.1 H (22.0-30.0) sec Sodium 133 L (137-145) mmol/L Potassium (3.5-5.1) mmol/L Creatinine 0.57 L (0.66-1.25) mg/dL Magnesium (1.6-2.3) mg/dL Total Bilirubin 1.7 H (0.2-1.3) mg/dL Alkaline Phosphatase 129 H (38-126) U/L
--- NOTE | 2024-09-30 12:19 | P.DS ---
Providers Date of admission: 09/29/24 23:28 Attending physician: Alexandra Harrison Consults: 09/29/24 23:27 Consult Physician Routine Consulting Provider: [facility] Consult Reason/Comments: chest pain Do you want consulting provider notified?: Yes Primary care physician: Willie Kerr MD Hospital Course: 1-year-old pleasant male with known history of coronary artery disease, conge stive heart failure EF of around 20 to 25%, cirrhosis came in with complaints of chest pressure-like sensation started yesterday improved with nitroglycerin. Patient had CABG 25 years ago and stents after that and recently had stress test few months ago. Troponins were negative EKG did not show any acute ST-T wave changes evaluated by cardiology cleared by cardiology. Patient clinically is euvolemic takes Bumex at home mildly hyponatremic hypomagnesemic and hypokalemic patient takes potassium at home as well. Patient is also on Entresto. REVIEW OF SYSTEMS: All other systems are negative except those mentioned in the HPI PHYSICAL EXAMINATION: GENERAL: The patient is alert and oriented x3, not in any acute distress. Well developed, well nourished. HEENT: Pupils are round and equally reacting to light. EOMI. No scleral icterus. No conjunctival pallor. Normocephalic, atraumatic. No pharyngeal erythema. No thyromegaly. CARDIOVASCULAR: S1 and S2 present. No murmurs, rubs, or gallops. PULMONARY: Chest is clear to auscultation, no wheezing or crackles. ABDOMEN: Soft, nontender, nondistended, normoactive bowel sounds. No palpable organomegaly. MUSCULOSKELETAL: No joint swelling or deformity. EXTREMITIES: No cyanosis, clubbing, or pedal edema. NEUROLOGICAL: Gross neurological examination did not reveal any focal deficits. SKIN: No rashes. Assessment and plan -Chest pain rule out acute coronary syndrome evaluated by cardiology cleared by cardiology patient will be discharged today without any medication changes at this time -Congestive heart failure chronic systolic function without any acute exacerbation patient has ischemic cardiomyopathy patient is bit hyponatremic but will be resumed on Bumex potassium supplementation. Patient will be continued on Entresto beta-glenda. -Coronary artery disease resumed on home medications -History of alcoholic cirrhosis recently quit alcohol -Continue with continues to smoke extensive counseling regarding this was prov ided -Hypokalemia and hypomagnesemia both will be replaced -Chronic normocytic anemia and thrombocytopenia no further intervention at this time probably alcoholism related bone marrow suppression Patient will be discharged today will need basic metabolic profile and magnesium levels when he visits his primary doctor next Wednesday patient will resume potassium supplementation patient is also on Entresto we will continue with his Bumex Patient Condition at Discharge: Stable Plan - Discharge Summary New Discharge Prescriptions: No Action LORazepam 2 mg PO TID PRN PRN Reason: Anxiety HYDROcodone/APAP 10-325MG [[place] 10-325] 1 tab PO Q6H PRN PRN Reason: Pain Atorvastatin [Lipitor] 40 mg PO DAILY #30 tab Metoprolol Tartrate [Lopressor] 25 mg PO BID #60 tab Potassium Chloride [K-Tab ER] 20 meq PO DAILY #30 tab Midodrine [ProAmatine] 5 mg PO BID PRN #30 tablet PRN Reason: Hypotension Pantoprazole Sodium [Protonix] 20 mg PO DAILY Aspirin 81 mg PO DAILY #30 tab Bumetanide [BUMEX] 1 mg PO DAILY #30 tab Apixaban [Eliquis] 5 mg PO BID #60 tab Empagliflozin [Jardiance] 10 mg PO DAILY Discharge Medication List HYDROcodone/APAP 10-325MG [[place] 10-325] 1 tab PO Q6H PRN 07/19/24 [History] LORazepam 2 mg PO TID PRN 07/19/24 [History] Apixaban [Eliquis] 5 mg PO BID #60 tab 07/25/24 [Rx] Aspirin 81 mg PO DAILY #30 tab 07/25/24 [Rx] Atorvastatin [Lipitor] 40 mg PO DAILY #30 tab 07/25/24 [Rx] Bumetanide [BUMEX] 1 mg PO DAILY #30 tab 07/25/24 [Rx] Metoprolol Tartrate [Lopressor] 25 mg PO BID #60 tab 07/25/24 [Rx] Potassium Chloride [K-Tab ER] 20 meq PO DAILY #30 tab 08/01/24 [Rx] Midodrine [ProAmatine] 5 mg PO BID PRN #30 tablet 08/11/24 [Rx] Empagliflozin [Jardiance] 10 mg PO DAILY 09/30/24 [History] Pantoprazole Sodium [Protonix] 20 mg PO DAILY 09/30/24 [History] Follow up Appointment(s)/Referral(s): Willie Kerr MD [Primary Care Provider] - 3 Days Discharge Disposition: HOME SELF-CARE
[2024-09-30] MEDS: POTASSIUM CHLORIDE ER 20 MEQ TAB.ER PO STA (12:35)
[2024-09-30] MEDS: MAGNESIUM SULFATE-D5W PMX 1 GM in DEXTROSE/WATER 1 100ML.BAG IVPB SCH (12:36)
--- NOTE | 2024-09-30 14:07 | P.CRDCN ---
History of Present Illness Consult date: 09/30/24 Consult reason: congestive heart failure History of present illness: The patient is a 59-year-old male who presented to the emergency room with new onset of chest pressure. He states he had a heaviness in his chest, which resolved with administration of nitroglycerin. He recently had a hospital admission for EtOH withdrawal, where he was followed with cardiology. Upon discharge it was recommended that he follow-up with gastroenterology, where he underwent EGD and is unsure of the findings. DIAGNOSTICS: EKG shows atrial fibrillation Chest x-ray shows small left pleural effusion Echocardiogram from July shows EF of 25 to 30% Lab data: WBC 3.4, hemoglobin 9.6, hematocrit 30.3, platelet 138, sodium 133, potassium 3.8, BUN 11, creatinine 0.57, AST 33, ALT 16, troponin 0.02, 0.03, 0.03, BNP 1690 REVIEW OF SYSTEMS: No fever or chills. No cough or expectoration. No diaphoresis. Patient denies headache, dizziness, blurred vision, double vision. Patient denies any stomach discomfort. No nausea, vomiting. No hematochezia. No hematemesis. Denies any black stools or blood in his stools. Denies dysuria or hematuria. No muscle weakness or numbness. No current chest pain. No difficulty breathing. PHYSICAL EXAMINATION: This is a 59-year-old male in no apparent distress at the time of my examination. HEENT: Head is atraumatic, normocephalic. Pupils are equal, round. Sclerae anicteric. There is no jugular venous distention. No carotid bruit is heard. CHEST EXAMINATION: Lungs are clear to auscultation. No chest wall tenderness is noted on palpation or with deep breathing. HEART EXAMINATION: Heart regular rate and rhythm. S1, S2 heard. No murmurs, gallops or rub. ABDOMEN: Distended, nontender. Bowel sounds are heard. No organomegaly noted. EXTREMITIES: 2+ peripheral pulses with no evidence of peripheral edema and no calf tenderness noted. NEUROLOGIC EXAMINATION: Patient is awake, alert and oriented x3. FINAL ASSESSMENT AND PLAN: Chest discomfort Persistent atrial fibrillation Congestive heart failure, systolic History of coronary artery disease Ischemic cardiomyopathy, EF 25 to 30% Status post AICD placement History of VT ablation History of EtOH abuse History of liver failure with paracentesis PLAN: Resume home cardiac regimen Patient to be discharged for outpatient follow-up with primary continuity director at [facility] I am dictating on behalf of Dr Mathieu Lyons's history/physical and assessment/plan. Past Medical History Past Medical History: Atrial Fibrillation, Chest Pain / Angina, Heart Failure, COPD, Hypertension, Liver Disease, Myocardial Infarction ([place]), Respiratory Disorder, Syncope Additional Past Medical History / Comment(s): Home oxygen use@2-3L PRN COPD - says has oxygen at home but doesn't wear it, [place]- patient reports having 3-4 CO's, + CABG -triple bypass scar, + AICD/PCCM "I have a machine inside that sends all the info to my heart doctor" , Abdominal Hernia surgery x2, paracentesis as needed- last times was at [facility] about 4 months ago per patient Last Myocardial Infarction Date:: 1992 History of Any Multi-Drug Resistant Organisms: None Reported Past Surgical History: AICD, Cholecystectomy, Coronary Bypass/CABG, Heart Catheterization With Stent, Hernia Repair, Pacemaker Additional Past Surgical History / Comment(s): CABG, AICD/Pacemaker placed about 10 years ago per patient 07/19/24, Hernia repair abdominal x2 Past Anesthesia/Blood Transfusion Reactions: No Reported Reaction Date of Last Stent Placement:: 1992 Type of Cardiac Device: Permanent Pacemaker, AICD Device Placement Date:: 1992 Past Psychological History: Anxiety Smoking Status: Current every day smoker Past Alcohol Use History: Occasional Past Drug Use History: Marijuana - Past Family History Mother Family Medical History: Cancer Father Family Medical History: Cancer Medications and Allergies Home Medications Medication Instructions Recorded Confirmed Type HYDROcodone/APAP 10-325MG [[place] 1 tab PO Q6H PRN 07/19/24 09/30/24 History 10-325] LORazepam 2 mg PO TID PRN 07/19/24 09/30/24 History Apixaban [Eliquis] 5 mg PO BID #60 tab 07/25/24 09/30/24 Rx Aspirin 81 mg PO DAILY #30 tab 07/25/24 09/30/24 Rx Atorvastatin [Lipitor] 40 mg PO DAILY #30 tab 07/25/24 09/30/24 Rx Bumetanide [BUMEX] 1 mg PO DAILY #30 tab 07/25/24 09/30/24 Rx Metoprolol Tartrate [Lopressor] 25 mg PO BID #60 tab 07/25/24 09/30/24 Rx Potassium Chloride [K-Tab ER] 20 meq PO DAILY #30 tab 08/01/24 09/30/24 Rx Midodrine [ProAmatine] 5 mg PO BID PRN #30 tablet 08/11/24 09/30/24 Rx Empagliflozin [Jardiance] 10 mg PO DAILY 09/30/24 09/30/24 History Pantoprazole Sodium [Protonix] 20 mg PO DAILY 09/30/24 09/30/24 History Allergies Allergy/AdvReac Type Severity Reaction Status Date / Time chloroxine [From Capitrol] AdvReac Rash/Hives Verified 09/30/24 08:53 Physical Exam Vitals: Vital Signs Temp Pulse Resp BP Pulse Ox 09/30/24 10:32 68 18 123/71 98 09/30/24 08:00 78 18 105/77 98 09/30/24 07:00 64 18 116/70 98 09/30/24 06:00 71 18 112/70 92 L 09/30/24 03:04 66 18 111/77 95 09/29/24 21:58 97.9 F 82 18 152/78 95 Intake and Output 09/29/24 09/30/24 09/30/24 22:59 06:59 14:59 Intake Total 69.902 Balance 69.902 Intake: Intake, IV Titration 69.902 Amount Heparin Sod,Pork in 0.45% 69.902 NaCl 25,000 unit In 0.45 % NaCl 1 250ml.bag @ 12 UNITS/KG/HR 8.981 mls/hr IV .Q24H [facility] Rx#: [id number] Other: Weight 74.843 kg Results 09/30/24 04:13 09/30/24 04:13 Cardiac Enzymes 09/29/24 09/29/24 09/30/24 Range/Units 22:15 22:15 00:09 AST 32 (17-59) U/L Troponin I 0.028 0.033 (0.000-0.034) ng/mL 09/30/24 09/30/24 Range/Units 04:13 04:13 AST 33 (17-59) U/L Troponin I 0.034 (0.000-0.034) ng/mL Coagulation 09/29/24 09/30/24 09/30/24 Range/Units 22:15 04:13 11:49 PT 13.2 H 13.0 H (10.0-12.5) sec APTT 27.0 35.1 H 27.7 (22.0-30.0) sec CBC 09/29/24 09/30/24 Range/Units 22:15 04:13 WBC 3.2 L 3.4 L (3.8-10.6) k/uL RBC 3.36 L 3.41 L (4.30-5.90) m/uL Hgb 9.1 L 9.6 L (13.0-17.5) gm/dL Hct 29.8 L 30.3 L (39.0-53.0) % Plt Count 132 L 138 L (150-450) k/uL Comprehensive Metabolic Panel 09/29/24 09/30/24 Range/Units 22:15 04:13 Sodium 132 L 133 L (137-145) mmol/L Potassium 2.9 L 3.8 (3.5-5.1) mmol/L Chloride 100 99 (98-107) mmol/L Carbon Dioxide 29 29 (22-30) mmol/L BUN 10 11 (9-20) mg/dL Creatinine 0.56 L 0.57 L (0.66-1.25) mg/dL Glucose 94 85 (74-99) mg/dL Calcium 8.8 8.9 (8.4-10.2) mg/dL AST 32 33 (17-59) U/L ALT 15 16 (4-49) U/L Alkaline Phosphatase 133 H 129 H (38-126) U/L Total Protein 6.7 6.7 (6.3-8.2) g/dL Albumin 3.5 3.6 (3.5-5.0) g/dL Current Medications Generic Name Dose Route Start Last Admin Trade Name Freq PRN Reason Stop Dose Admin Apixaban 5 mg 09/30/24 09:45 09/30/24 10:06 Apixaban 5 Mg Tab PO 5 mg BID JAYSHREE Administration Protocol Aspirin 81 mg 09/30/24 09:00 09/30/24 09:08 Aspirin 81 Mg PO 81 mg DAILY JAYSHREE Administration Atorvastatin Calcium 40 mg 09/30/24 09:00 09/30/24 09:07 Atorvastatin 40 Mg Tab PO 40 mg DAILY JAYSHREE Administration Bumetanide 1 mg 09/30/24 09:00 09/30/24 09:07 Bumetanide 1 Mg Tab PO 1 mg DAILY JAYSHREE Administration Magnesium Sulfate/Dextrose 1 100 mls @ 100 mls/hr 09/30/24 12:15 09/30/24 13:31 gm/ IV Solution IVPB 09/30/24 15:14 100 mls/hr Q1H JAYSHREE Administration Metoprolol Tartrate 25 mg 09/30/24 09:00 09/30/24 09:08 Metoprolol Tartrate 25 Mg Tab PO 25 mg BID JAYSHREE Administration Midodrine 5 mg 09/30/24 00:51 Midodrine 5 Mg Tab PO BID PRN Hypotension Miscellaneous Information 1 each 09/29/24 22:40 Potassium Replacement Protocol 1 Each Misc MISCELLANE DAILY PRN Per Protocol Protocol Naloxone HCl 0.2 mg 09/29/24 23:27 Naloxone 0.4 Mg/Ml 1 Ml Vial IV Q2M PRN Opioid Reversal Nitroglycerin 0.5 inch 09/29/24 23:00 09/30/24 10:06 Nitroglycerin Oint 1 Inch/Gm Packet TOPICAL Not Given Q8H JAYSHREE Ondansetron HCl 4 mg 09/29/24 23:27 Ondansetron 4 Mg/2 Ml Vial IVP Q8HR PRN Nausea And Vomiting Sacubitril/Valsartan 1 each 09/30/24 21:00 Sacubitril/Valsartan 24 Mg-26 Mg Tablet PO BID [facility] Intake and Output 09/29/24 09/30/24 09/30/24 22:59 06:59 14:59 Intake Total 69.902 Balance 69.902 Intake: Intake, IV Titration 69.902 Amount Heparin Sod,Pork in 0.45% 69.902 NaCl 25,000 unit In 0.45 % NaCl 1 250ml.bag @ 12 UNITS/KG/HR 8.981 mls/hr IV .Q24H [facility] Rx#: [id number] Other: Weight 74.843 kg 09/30/24 04:13 09/30/24 04:13
--- NOTE | 2024-09-30 14:25 | CA ---
Transthoracic Echo Report Name: Jaron Price Age: 59 Gender: M : 1965 Exam Date: 09/30/2024 08:30 Exam Location: [facility] Ht (in): 69 Wt (lb): 165 Ordering Physician: Phuc Paredes MD Attending/Referring Phys: Indoor Plant Technician Yu Tong RDCS Procedure CPT: Indications: Chest Pain Cardiac Hx: Technical Quality: Good Contrast 1: Total Dose (mL): Contrast 2: Total Dose (mL): MEASUREMENTS (Male / Female) Normal Values 2D ECHO LV Diastolic Diameter PLAX 5.6 cm 4.2 - 5.9 / 3.9 - 5.3 cm LV Systolic Diameter PLAX 4.9 cm IVS Diastolic Thickness 1.6 cm 0.6 - 1.0 / 0.6 - 0.9 cm LVPW Diastolic Thickness 1.0 cm 0.6 - 1.0 / 0.6 - 0.9 cm LV Relative Wall Thickness 0.5 LV Diastolic Volume MOD BP 239.4 cm??? 67 - 155 / 56 - 104 cm??? LV Systolic Volume MOD BP 170.4 cm??? 22 - 58 / 19 - 49 cm??? LV Ejection Fraction MOD BP 28.8 % >= 55 % LV Cardiac Index MOD BP 2412.1 cm???/min???m??? LV Diastolic Volume MOD 4C 215.3 cm??? LV Systolic Volume MOD 4C 152.9 cm??? LV Ejection Fraction MOD 4C 29.0 % LV Cardiac Index MOD 4C 2184.8 cm???/min???m??? LV Diastolic Length 4C 9.8 cm LV Systolic Length 4C 9.1 cm LV Diastolic Volume MOD 2C 259.1 cm??? LV Systolic Volume MOD 2C 179.3 cm??? LV Ejection Fraction MOD 2C 30.8 % LV Cardiac Index MOD 2C 2791.3 cm???/min???m??? LV Diastolic Length 2C 10.1 cm LV Systolic Length 2C 8.6 cm DOPPLER MV Peak Velocity 162.5 cm/s MV Peak Gradient 10.6 mmHg MV Mean Velocity 75.5 cm/s MV Mean Gradient 3.1 mmHg MV Velocity Time Integral 42.5 cm TR Peak Velocity 390.1 cm/s TR Peak Gradient 60.9 mmHg Right Atrial Pressure 20.0 mmHg Pulmonary Artery Systolic Pressu 80.9 mmHg Right Ventricular Systolic Press 80.9 mmHg PV Peak Velocity 80.7 cm/s PV Peak Gradient 2.6 mmHg FINDINGS Left Ventricle Left ventricular ejection fraction is estimated at 25-30 %. Moderately increased septal wall thickness. Severely increased left ventricular diastolic volume. Severely increased left ventricular systolic volume. Severely decreased left ventricular ejection fraction with regional variability. Right Ventricle Right ventricular dilatation with reduced function. Severe pulmonary hypertension. Right Atrium Right atrial dilatation. Catheter/pacemaker wire in the right atrial cavity. Left Atrium Left atrial dilatation. Mitral Valve Mitral valve thickened. Mild mitral stenosis. Mild mitral regurgitation. Aortic Valve Trileaflet aortic valve. Trace aortic regurgitation. Tricuspid Valve Structurally normal tricuspid valve. No tricuspid stenosis. Mild tricuspid regurgitation. Pulmonic Valve Structurally normal pulmonic valve. No pulmonic stenosis. [id number] pulmonic regurgitation. Pericardium No pericardial effusion. Aorta Aortic root and proximal ascending aorta not assessed. CONCLUSIONS Diagnosis chest pain rule out [place] Dilated LV with increased LV mass reduced LV systolic function ejection fraction severely reduced less than 30% Eccentric moderate mitral regurgitation Dilated IVC with reduced collapse during inspiration Previewed by: Dr. Mathieu Lyons MD (Electronically Signed) Final Date: 30 September 2024 14:24
[2024-09-30 15:56] VITALS: BP 126/79; PULSE 64; RESP 20
== END 2024-09-30 16:11 | disposition home or self-care (01) ==
LOC: EC 21:54 → INTOOBSV 23:28 → 3SCARD 23:28
PROVIDERS: ADMIT Hospitalist; ATTEND Hospitalist
DX: R07.2 Precordial pain (principal); E87.6 Hypokalemia; E83.42 Hypomagnesemia; E87.1 Hypo-osmolality and hyponatremia; T50.1X5A Adverse effect of loop [high-ceiling] diuretics, initial encounter; I11.0 Hypertensive heart disease with heart failure; I50.22 Chronic systolic (congestive) heart failure; I48.21 Permanent atrial fibrillation; I25.5 Ischemic cardiomyopathy; J44.9 Chronic obstructive pulmonary disease, unspecified; K70.30 Alcoholic cirrhosis of liver without ascites; I25.10 Atherosclerotic heart disease of native coronary artery without angina pectoris; D64.9 Anemia, unspecified; D69.6 Thrombocytopenia, unspecified; K70.40 Alcoholic hepatic failure without coma; F10.20 Alcohol dependence, uncomplicated; R68.84 Jaw pain; M54.2 Cervicalgia; I25.2 Old myocardial infarction; F17.200 Nicotine dependence, unspecified, uncomplicated; Z79.01 Long term (current) use of anticoagulants; Z79.82 Long term (current) use of aspirin; Z79.84 Long term (current) use of oral hypoglycemic drugs; Z79.899 Other long term (current) drug therapy; Z88.8 Allergy status to other drugs, medicaments and biological substances; Z95.1 Presence of aortocoronary bypass graft; Z95.5 Presence of coronary angioplasty implant and graft; Z95.828 Presence of other vascular implants and grafts; Z95.810 Presence of automatic (implantable) cardiac defibrillator; Z71.6 Tobacco abuse counseling
CPT/HCPCS: 96376 ×2; 96365; 96366 ×2; 96367; 99291; 36415; 93005; 93308; 83880; 80053 ×2; 83735; 84484 ×2; 85025 ×2; 85610 ×2; 85730 ×2; 71046; G0378 ×2; G0480; J1644 ×3; J3475; 80320; 96368; 96375

== ENCOUNTER 2024-10-05 14:05 | Observation (INO) | payer MEDICARE, OTHER ==
--- NOTE | 2024-10-05 14:42 | CT ---
EXAMINATION TYPE: CT brain cspine wo con CT DLP: 1342.8 mGycm, Automated exposure control for dose reduction was used. DATE OF EXAM: 10/05/2024 2:33 PM COMPARISON: CT brain C-spine 07/19/2024. CLINICAL INDICATION:Male, 59 years old with history of fall/on eliquis; Fall on ELOQUIS, code coag. P ain. TECHNIQUE: Brain: Multiple axial CT images of the brain were obtained without IV contrast. Cspine: Axial CT images from the skull base to the inferior aspect of T2 we obtained without intraven ous contrast. Coronal and sagittal reformatted images were also reviewed. FINDINGS: Brain: Extra-axial spaces: No abnormal extra-axial fluid collections. Ventricular system: Within normal limits Cerebral parenchyma: Cerebral atrophy. No acute intraparenchymal hemorrhage or mass effect. The salazar -white junction is well differentiated. Scattered hypoattenuating areas are seen within the periventr icular white matter. Cerebellum: Unremarkable. Mass effect: No evidence of midline shift. Intracranial vasculature: Atherosclerotic calcifications of the intracranial vessels. Soft tissues: Normal. Calvarium/osseous structures: No depressed skull fracture. Paranasal sinuses and mastoid air cells: The mastoid air cells are clear. Minimal mucosal thickening of the right maxillary sinus. The main paranasal sinuses are clear. Visualized orbits: Orbital contents are intact. Cervical spine: Fracture: None. Osseous structures: Disc space narrowing with endplate sclerosis and anterior osteophytosis at C5-C6 and C6-C7. Vertebral alignment: Within normal limits. Spinal canal/Neural Foramina: No evidence of significant spinal canal narrowing. No evidence for sign ificant neural foraminal stenosis. Neck soft tissues: Prevertebral soft tissues are within normal limits. Other: The airway is patent. The lung apices are clear. Centrilobular emphysematous changes. Left car otid bulb calcifications. Atherosclerotic calcification involving the bilateral vertebral arteries. V isualization of left chest cardiac pacemaker leads. Postsurgical changes with surgical clips in the r ight neck. Multiple prominent bilateral supraclavicular lymph nodes redemonstrated. IMPRESSION: 1. No acute intracranial process. 2. Nonspecific white matter changes, likely secondary to chronic small vessel ischemic disease. 3. No evidence of cervical spine fracture. 4. Mild multilevel degenerative disc disease. 5. COPD changes. [facility], , 10/05/2024 2:40 PM
[2024-10-05 15:19] LABS: Anisocytosis Slight; Basophils % (A) 0 %; Eosinophils # (A) 0.1 k/uL (0-0.7); Eosinophils % (A) 3 %; HGB 9.4 gm/dL (13.0-17.5); Hypochromasia Marked; Lymphocytes # (A) 0.6 k/uL (1.0-4.8); Lymphocytes % (A) 17 %; MCH 27.5 pg (25.0-35.0); MCHC 31.4 g/dL (31.0-37.0); MCV 87.5 fL (80.0-100.0); Mean Platelet Volume 9.5; Monocytes # (A) 0.3 k/uL (0-1.0); Monocytes % (A) 8 %; Neutrophils # (A) 2.3 k/uL (1.3-7.7); Neutrophils % (A) 69 %; Platelet Count 152 k/uL (150-450); Poikilocytosis Slight; RBC 3.43 m/uL (4.30-5.90); WBC 3.4 k/uL (3.8-10.6)
[2024-10-05 15:28] LABS: ALT 16 U/L (4-49); AST 34 U/L (17-59); African American GFR (CKD) >90 (>60 ml/min/1.73 sqM); Albumin 3.9 g/dL (3.5-5.0); Alcohol <10 mg/dL; Alkaline Phosphatase 111 U/L (38-126); Anion Gap 10 mmol/L; Blood Urea Nitrogen 14 mg/dL (9-20); Calcium 8.9 mg/dL (8.4-10.2); Carbon Dioxide 27 mmol/L (22-30); Chloride 95 mmol/L (98-107); Glucose 100 mg/dL (74-99); Non-African American GFR(CKD) >90 (>60 ml/min/1.73 sqM); Potassium 3.3 mmol/L (3.5-5.1); Sodium 132 mmol/L (137-145); Total Bilirubin 1.5 mg/dL (0.2-1.3)
[2024-10-05 15:33] LABS: INR 1.3 (<1.2); Lactic Acid, Venous 4.7 mmol/L (0.7-2.0); Partial Thromboplastin Time 26.1 sec (22.0-30.0); Prothrombin Time 13.9 sec (10.0-12.5)
[2024-10-05 15:35] LABS: NT-Pro-B-Type Natriuretic Pept 1470 pg/mL
[2024-10-05 15:38] LABS: Amphetamine Screen,Urine Not Detected (NotDetected); Barbiturate Screen,Urine Not Detected (NotDetected); Benzodiazepines Screen,Urine Not Detected (NotDetected); Cocaine Screen,Urine Not Detected (NotDetected); Methadone Screen, Urine Not Detected (NotDetected); Opiate Screen,Urine Detected (NotDetected); Oxycodone Screen, Urine Not Detected (NotDetected); Phencyclidine Screen,Urine Not Detected (NotDetected); Tricyclic Antidepressant,Urine Not Detected (NotDetected); Urn Cannabinoid Scrn Not Detected (NotDetected)
--- NOTE | 2024-10-05 15:53 | XR ---
EXAMINATION TYPE: XR chest 2V DATE OF EXAM: 10/05/2024 3:50 PM COMPARISON: Chest radiographs from 09/29/2024 CLINICAL INDICATION: Male, 59 years old with history of altered mental status; TECHNIQUE: XR chest 2V Frontal and lateral views of the chest. FINDINGS: Lungs/Pleura: No evidence of focal consolidation or pneumothorax. Blunting of the costophrenic angles is present. Pulmonary vascularity: Unremarkable. Heart/mediastinum: Cardiomediastinal silhouette is enlarged and stable. Atherosclerotic calcificatio ns are seen in the aorta. Two lead cardiac conduction device overlying the left hemithorax with lead tips projecting over the right ventricle and right atrium. Musculoskeletal: No acute osseous pathology. IMPRESSION: Cardiomegaly, pulmonary vascular congestion and bilateral pleural effusions. Correlate with BNP for c ongestive heart failure. [facility], Workstation: [facility], 10/05/2024 3:51 PM
--- NOTE | 2024-10-05 15:55 | XR ---
EXAMINATION TYPE: XR ankle complete LT DATE OF EXAM: 10/05/2024 3:50 PM COMPARISON: None CLINICAL INDICATION: Male, 59 years old with history of fall, pain; PHH, pain TECHNIQUE: XR ankle complete LT; ankle is imaged in frontal, lateral and oblique projections. FINDINGS: There is no evidence of acute osseous pathology. No evidence of subluxation or dislocation. Kager's fat pad is intact. Mild soft tissue swelling around the ankle. No radiopaque foreign bodies are ident ified. Atherosclerosis of the arterial vasculature. IMPRESSION: No evidence of acute fracture. [facility], Workstation: [facility], 10/05/2024 3:52 PM
[2024-10-05] MEDS: MORPHINE SULFATE 4 MG/ML SYRINGE IVP STA (17:24)
--- NOTE | 2024-10-05 19:36 | ED ---
Fall HPI - General Chief Complaint: Fall Stated Complaint: fall Time Seen by Provider: 10/05/24 14:15 Source: patient Mode of arrival: EMS - History of Present Illness Initial Comments: 59-year-old male with past medical history of alcoholic liver cirrhosis, coronary artery disease, A-fib on Eliquis, ischemic cardiomyopathy history of alcohol withdrawal seizures who presents to the emergency department with possible fall versus seizure. Patient resides with a roommate. The roommate heard the patient let out a shrill. He then heard him fall to the ground. He went into the room to find the patient on the floor. They did not report any seizure-like activity but patient does have a history of alcohol withdrawal seizures. Patient was confused and took a significant amount of time to come around. Unsure if he hit his head. Patient had obvious laceration to the left ankle. Patient thought that he was in bed and possibly fell out. He denies any headache or visual changes. No neck pain. Denies any chest pain or difficulty breathing. HPI is limited as patient does not recall events. - Related Data Home Medications Medication Instructions Recorded Confirmed HYDROcodone/APAP 10-325MG [[place] 1 tab PO Q6H PRN 07/19/24 10/06/24 10-325] LORazepam 2 mg PO TID PRN 07/19/24 10/06/24 Empagliflozin [Jardiance] 10 mg PO DAILY 09/30/24 10/06/24 Pantoprazole Sodium [Protonix] 20 mg PO DAILY 09/30/24 10/06/24 Albuterol Sulfate [Albuterol 2 puff INHALATION RT-QID PRN 10/06/24 10/06/24 Sulfate Hfa] Ergocalciferol [Vitamin D2 (1250 1,250 mcg PO DIRECTED 10/06/24 10/06/24 Mcg = 63198 Iu)] Fluticasone/Umeclidin/Vilanter 1 puff INHALATION RT-DAILY 10/06/24 10/06/24 [Trelegy Ellipta 100-62.5-25] Nitroglycerin Sl Tabs [Nitrostat] 0.4 mg SL Q5M PRN 10/06/24 10/06/24 Previous Rx's Medication Instructions Recorded Apixaban [Eliquis] 5 mg PO BID #60 tab 07/25/24 Aspirin 81 mg PO DAILY #30 tab 07/25/24 Atorvastatin [Lipitor] 40 mg PO DAILY #30 tab 07/25/24 Bumetanide [BUMEX] 1 mg PO DAILY #30 tab 07/25/24 Metoprolol Tartrate [Lopressor] 25 mg PO BID #60 tab 07/25/24 Potassium Chloride [K-Tab ER] 20 meq PO DAILY #30 tab 08/01/24 Midodrine [ProAmatine] 5 mg PO BID PRN #30 tablet 08/11/24 Iron Ps Cmplx/Vit B12/FA 1 each PO DAILY #30 cap 10/08/24 [Niferex-150 Forte] Allergies Allergy/AdvReac Type Severity Reaction Status Date / Time chloroxine [From Capitrol] AdvReac Rash/Hives Verified 10/06/24 10:44 Review of Systems ROS Statement: Those systems with pertinent positive or pertinent negative responses have been documented in the HPI. ROS Other: All systems not noted in ROS Statement are negative. Past Medical History Past Medical History: Atrial Fibrillation, Chest Pain / Angina, Heart Failure, COPD, Hypertension, Liver Disease, Myocardial Infarction ([place]), Respiratory Disorder, Syncope Additional Past Medical History / Comment(s): Home oxygen use@2-3L PRN COPD - says has oxygen at home but doesn't wear it, OH- patient reports having 3-4 OH' s, + CABG -triple bypass scar, + AICD/PCCM "I have a machine inside that sends all the info to my heart doctor" , Abdominal Hernia surgery x2, paracentesis as needed- last times was at [facility] about 4 months ago per patient Last Myocardial Infarction Date:: 1992 History of Any Multi-Drug Resistant Organisms: None Reported Past Surgical History: AICD, Cholecystectomy, Coronary Bypass/CABG, Heart Catheterization With Stent, Hernia Repair, Pacemaker Additional Past Surgical History / Comment(s): CABG, AICD/Pacemaker placed about 10 years ago per patient 07/19/24, Hernia repair abdominal x2 Past Anesthesia/Blood Transfusion Reactions: No Reported Reaction Date of Last Stent Placement:: 1992 Type of Cardiac Device: Permanent Pacemaker, AICD Device Placement Date:: 1992 Past Psychological History: Anxiety Smoking Status: Current every day smoker Past Alcohol Use History: Occasional Past Drug Use History: Marijuana - Past Family History Mother Family Medical History: Cancer Father Family Medical History: Cancer General Exam Limitations: altered mental status General appearance: alert, in no apparent distress Head exam: Present: atraumatic, normocephalic, normal inspection Eye exam: Present: normal appearance, PERRL, EOMI. Absent: scleral icterus, conjunctival injection, periorbital swelling ENT exam: Present: normal exam, mucous membranes moist Neck exam: Present: normal inspection. Absent: tenderness, meningismus, lymphadenopathy Respiratory exam: Present: normal lung sounds bilaterally. Absent: respiratory distress, wheezes, rales, rhonchi, stridor Cardiovascular Exam: Present: regular rate, normal rhythm, normal heart sounds. Absent: systolic murmur, diastolic murmur, rubs, gallop, clicks GI/Abdominal exam: Present: soft, normal bowel sounds. Absent: distended, tenderness, guarding, rebound, rigid Extremities exam: Present: normal inspection, full ROM, normal capillary refill. Absent: tenderness, pedal edema, joint swelling, calf tenderness Back exam: Present: normal inspection Neurological exam: Present: alert, oriented X3, CN II-XII intact Psychiatric exam: Present: normal affect, normal mood Skin exam: Present: warm, dry, intact, normal color, other (Skin tear left ankle measuring 3 cm in length. Abrasion to the right neck measuring 5 cm in length). Absent: rash Course Vital Signs 10/05/24 10/05/24 10/05/24 14:10 15:34 17:04 Temperature Pulse Rate 68 64 61 Pulse Rate [ Right Supine Pulse Oximetery ] Respiratory 18 18 18 Rate Blood Pressure 131/69 117/64 117/67 Blood Pressure [Right Arm Supine] O2 Sat by Pulse 96 94 L 100 Oximetry 10/05/24 10/05/24 10/05/24 18:24 21:28 21:47 Temperature 98.2 F Pulse Rate 60 Pulse Rate [ 71 Right Supine Pulse Oximetery ] Respiratory 18 18 18 Rate Blood Pressure 109/74 Blood Pressure 128/69 [Right Arm Supine] O2 Sat by Pulse 100 96 Oximetry 10/05/24 10/06/24 10/06/24 23:30 02:03 04:26 Temperature Pulse Rate 70 62 65 Pulse Rate [ Right Supine Pulse Oximetery ] Respiratory 18 18 18 Rate Blood Pressure 114/65 128/69 120/75 Blood Pressure [Right Arm Supine] O2 Sat by Pulse 99 Oximetry 10/06/24 10/06/24 08:15 10:45 Temperature 99.4 F 99.8 F H Pulse Rate 63 71 Pulse Rate [ Right Supine Pulse Oximetery ] Respiratory 16 18 Rate Blood Pressure 127/68 134/68 Blood Pressure [Right Arm Supine] O2 Sat by Pulse 100 100 Oximetry Medical Decision Making - Medical Decision Making Was pt. sent in by a medical professional or institution (, PA, SPD MANAGER, urgent care, hospital, or custodial...) When possible be specific @ -No Did you speak to anyone other than the patient for history (EMS, parent, family, police, friend...)? What history was obtained from this source @ -Spoke with EMS for history Did you review nursing and triage notes (agree or disagree)? Why? @ -I reviewed and agree with nursing and triage notes Were old charts reviewed (outside hosp., previous admission, EMS record, old EKG, old radiological studies, urgent care reports/EKG's, custodial records)? Report findings @ -I reviewed discharge summary from the Differential Diagnosis (chest pain, altered mental status, abdominal pain women, abdominal pain men, vaginal bleeding, weakness, fever, dyspnea, syncope, headache, dizziness, GI bleed, back pain, seizure, CVA, palpatations, mental health, musculoskeletal)? @ -Differential Altered Mental Status: Hypoglycemia, DKA, hypercapnia, ETOH, overdose, CO poisoning, trauma, myxedema coma, HTN encephalopathy, infection, encephalitis, psychosis, intercranial hemorrhage, hepatic encephalopathy, meningitis, CVA, this is not meant to be an all-inclusive list EKG interpreted by me (3pts min.). @ -Yes and demonstrates cysts A-fib with occasional paced rhythm. Rate of 71. QRS 116. QTc of 466. No acute ST segment elevations or depressions X-rays interpreted by me (1pt min.). @ -Yes which demonstrates no acute process CT interpreted by me (1pt min.). @ -Yes which demonstrates no acute process U/S interpreted by me (1pt. min.). @ -None done What testing was considered but not performed or refused? (CT, X-rays, U/S, labs)? Why? @ -None What meds were considered but not given or refused? Why? @ -None Did you discuss the management of the patient with other professionals (nazario parra i.e. , PA, SPD MANAGER, lab, RT, psych nurse, social media marketer, head sawyer, teacher, privacy officer, case finishing machine adjuster)? Give summary @ -Discussed case with Azra as patient was recently admitted to their service Was smoking cessation discussed for >3mins.? @ -No Was critical care preformed (if so, how long)? @ -No Were there social determinants of health that impacted care today? How? (Homelessness, low income, unemployed, alcoholism, drug addiction, transportation, low edu. Level, literacy, decrease access to med. care, prison, rehab)? @ -No Was there de-escalation of care discussed even if they declined (Discuss DNR or withdrawal of care, Hospice)? DNR status @ -No What co-morbidities impacted this encounter? (DM, HTN, Smoking, COPD, CAD, Cancer, CVA, ARF, Chemo, Hep., AIDS, mental health diagnosis, sleep apnea, morbid obesity)? @ -Alcohol withdrawal seizures Was patient admitted / discharged? Hospital course, mention meds given and route, prescriptions, significant lab abnormalities, going to OR and other pertinent info. @ -Upon arrival patient seen and evaluated in bed 5. Thorough history and physical exam was performed. IV access was established. Laboratory studies are conducted. X-rays are performed. CT performed to the patient's head. I did review the patient's discharge summary from the . He was recently admitted for similar. Patient will be readmitted. I spoke with Azra for the readmission Undiagnosed new problem with uncertain prognosis? @ -Yes Drug Therapy requiring intensive monitoring for toxicity (Heparin, Nitro, Insulin, Cardizem)? @ -No Were any procedures done? @ -No Diagnosis/symptom? @ -Acute fall, syncope versus seizure, left leg laceration, right neck abrasion Acute, or Chronic, or Acute on Chronic? @ -Acute, recurrent Uncomplicated (without systemic symptoms) or Complicated (systemic symptoms)? @ -Complicated Side effects of treatment? @ -No Exacerbation, Progression, or Severe Exacerbation? @ -No Poses a threat to life or bodily function? How? (Chest pain, [place], [place], pneumonia, PE, COPD, DKA, ARF, appy, cholecystitis, CVA, Diverticulitis, Homicidal, Suicidal, threat to staff... and all critical care pts) @ -No - Lab Data Result diagrams: 10/08/24 03:37 10/08/24 03:37 Lab Results 10/05/24 10/05/24 10/05/24 Range/Units 14:51 15:01 15:01 WBC 3.4 L (3.8-10.6) k/uL RBC 3.43 L (4.30-5.90) m/uL Hgb 9.4 L (13.0-17.5) gm/dL Hct 30.0 L (39.0-53.0) % MCV 87.5 (80.0-100.0) fL MCH 27.5 (25.0-35.0) pg MCHC 31.4 (31.0-37.0) g/dL RDW 16.0 H (11.5-15.5) % Plt Count 152 (150-450) k/uL MPV 9.5 Neutrophils % 69 % Lymphocytes % 17 % Monocytes % 8 % Eosinophils % 3 % Basophils % 0 % Neutrophils # 2.3 (1.3-7.7) k/uL Lymphocytes # 0.6 L (1.0-4.8) k/uL Monocytes # 0.3 (0-1.0) k/uL Eosinophils # 0.1 (0-0.7) k/uL Basophils # 0.0 (0-0.2) k/uL Hypochromasia Marked Poikilocytosis Slight Anisocytosis Slight PT 13.9 H (10.0-12.5) sec INR 1.3 H (<1.2) APTT 26.1 (22.0-30.0) sec Sodium (137-145) mmol/L Potassium (3.5-5.1) mmol/L Chloride (98-107) mmol/L Carbon Dioxide (22-30) mmol/L Anion Gap mmol/L BUN (9-20) mg/dL Creatinine (0.66-1.25) mg/dL Est GFR (CKD-EPI)AfAm (>60 ml/min/1.73 sqM) Est GFR (CKD-EPI)NonAf (>60 ml/min/1.73 sqM) Glucose (74-99) mg/dL Lactic Ac Sepsis Rflx Plasma Lactic Acid Tay (0.7-2.0) mmol/L Calcium (8.4-10.2) mg/dL Total Bilirubin (0.2-1.3) mg/dL AST (17-59) U/L ALT (4-49) U/L Alkaline Phosphatase (38-126) U/L Ammonia (<30) umol/L Troponin I (0.000-0.034) ng/mL NT-Pro-B Natriuret Pep pg/mL Total Protein (6.3-8.2) g/dL Albumin (3.5-5.0) g/dL Urine Opiates Screen Detected H (NotDetected) Ur Oxycodone Screen Not Detected (NotDetected) Urine Methadone Screen Not Detected (NotDetected) Ur Barbiturates Screen Not Detected (NotDetected) U Tricyclic Antidepress Not Detected (NotDetected) Ur Phencyclidine Scrn Not Detected (NotDetected) Ur Amphetamines Screen Not Detected (NotDetected) U Methamphetamines Scrn Not Detected (NotDetected) U Benzodiazepines Scrn Not Detected (NotDetected) Urine Cocaine Screen Not Detected (NotDetected) U Marijuana (THC) Screen Not Detected (NotDetected) Serum Alcohol mg/dL 10/05/24 10/05/24 10/05/24 Range/Units 15:01 15:01 15:01 WBC (3.8-10.6) k/uL RBC (4.30-5.90) m/uL Hgb (13.0-17.5) gm/dL Hct (39.0-53.0) % MCV (80.0-100.0) fL MCH (25.0-35.0) pg MCHC (31.0-37.0) g/dL RDW (11.5-15.5) % Plt Count (150-450) k/uL MPV Neutrophils % % Lymphocytes % % Monocytes % % Eosinophils % % Basophils % % Neutrophils # (1.3-7.7) k/uL Lymphocytes # (1.0-4.8) k/uL Monocytes # (0-1.0) k/uL Eosinophils # (0-0.7) k/uL Basophils # (0-0.2) k/uL Hypochromasia Poikilocytosis Anisocytosis PT (10.0-12.5) sec INR (<1.2) APTT (22.0-30.0) sec Sodium 132 L (137-145) mmol/L Potassium 3.3 L (3.5-5.1) mmol/L Chloride 95 L (98-107) mmol/L Carbon Dioxide 27 (22-30) mmol/L Anion Gap 10 mmol/L BUN 14 (9-20) mg/dL Creatinine 0.68 (0.66-1.25) mg/dL Est GFR (CKD-EPI)AfAm >90 (>60 ml/min/1.73 sqM) Est GFR (CKD-EPI)NonAf >90 (>60 ml/min/1.73 sqM) Glucose 100 H (74-99) mg/dL Lactic Ac Sepsis Rflx Plasma Lactic Acid Tay 4.7 H* (0.7-2.0) mmol/L Calcium 8.9 (8.4-10.2) mg/dL Total Bilirubin 1.5 H (0.2-1.3) mg/dL AST 34 (17-59) U/L ALT 16 (4-49) U/L Alkaline Phosphatase 111 (38-126) U/L Ammonia 62 H (<30) umol/L Troponin I 0.023 (0.000-0.034) ng/mL NT-Pro-B Natriuret Pep 1470 pg/mL Total Protein 7.0 (6.3-8.2) g/dL Albumin 3.9 (3.5-5.0) g/dL Urine Opiates Screen (NotDetected) Ur Oxycodone Screen (NotDetected) Urine Methadone Screen (NotDetected) Ur Barbiturates Screen (NotDetected) U Tricyclic Antidepress (NotDetected) Ur Phencyclidine Scrn (NotDetected) Ur Amphetamines Screen (NotDetected) U Methamphetamines Scrn (NotDetected) U Benzodiazepines Scrn (NotDetected) Urine Cocaine Screen (NotDetected) U Marijuana (THC) Screen (NotDetected) Serum Alcohol <10 mg/dL 10/05/24 10/05/24 Range/Units 15:34 17:45 WBC (3.8-10.6) k/uL RBC (4.30-5.90) m/uL Hgb (13.0-17.5) gm/dL Hct (39.0-53.0) % MCV (80.0-100.0) fL MCH (25.0-35.0) pg MCHC (31.0-37.0) g/dL RDW (11.5-15.5) % Plt Count (150-450) k/uL MPV Neutrophils % % Lymphocytes % % Monocytes % % Eosinophils % % Basophils % % Neutrophils # (1.3-7.7) k/uL Lymphocytes # (1.0-4.8) k/uL Monocytes # (0-1.0) k/uL Eosinophils # (0-0.7) k/uL Basophils # (0-0.2) k/uL Hypochromasia Poikilocytosis Anisocytosis PT (10.0-12.5) sec INR (<1.2) APTT (22.0-30.0) sec Sodium (137-145) mmol/L Potassium (3.5-5.1) mmol/L Chloride (98-107) mmol/L Carbon Dioxide (22-30) mmol/L Anion Gap mmol/L BUN (9-20) mg/dL Creatinine (0.66-1.25) mg/dL Est GFR (CKD-EPI)AfAm (>60 ml/min/1.73 sqM) Est GFR (CKD-EPI)NonAf (>60 ml/min/1.73 sqM) Glucose (74-99) mg/dL Lactic Ac Sepsis Rflx Y Plasma Lactic Acid Tay 1.4 (0.7-2.0) mmol/L Calcium (8.4-10.2) mg/dL Total Bilirubin (0.2-1.3) mg/dL AST (17-59) U/L ALT (4-49) U/L Alkaline Phosphatase (38-126) U/L Ammonia (<30) umol/L Troponin I (0.000-0.034) ng/mL NT-Pro-B Natriuret Pep pg/mL Total Protein (6.3-8.2) g/dL Albumin (3.5-5.0) g/dL Urine Opiates Screen (NotDetected) Ur Oxycodone Screen (NotDetected) Urine Methadone Screen (NotDetected) Ur Barbiturates Screen (NotDetected) U Tricyclic Antidepress (NotDetected) Ur Phencyclidine Scrn (NotDetected) Ur Amphetamines Screen (NotDetected) U Methamphetamines Scrn (NotDetected) U Benzodiazepines Scrn (NotDetected) Urine Cocaine Screen (NotDetected) U Marijuana (THC) Screen (NotDetected) Serum Alcohol mg/dL Disposition Clinical Impression: Syncope, Fall, Lactic acidosis, Blunt head trauma Disposition: ADMITTED IP TO THIS [facility] Condition: Good Is patient prescribed a controlled substance at d/c from ED?: No Time of Disposition: 20:28 Decision to Admit Reason: Admit from EC Decision Date: 10/05/24 Decision Time: 20:28
[2024-10-05] MEDS ORDERED: NALOXONE 0.4 MG/ML 1 ML VIAL IV PRN (20:30)
[2024-10-05] MEDS: DIPH,PERTUS(ACELL)TETVAC-LF 0.5 ML VIAL IM ONE (23:23)
[2024-10-05] MEDS: ACETAMINOPHEN TAB 325 MG TAB PO PRN (23:53)
--- NOTE | 2024-10-06 07:01 | P.CNNES ---
History of Present Illness Consult date: 10/06/24 Reason for Consult: History of atrial fibrillation with fall on Eliquis and confusion afterward Chief complaint: "I have been have a fall since I stopped drinking alcohol in July." History of Present Illness: Mr. 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 He also has a history of atrial fibrillation for which he takes Eliquis, ischemic cardiomyopathy, history of alcohol abuse though he states he quit in July of this year, CHF, angina, COPD, and hypertension. Patient was seen and is admitted to [facility] on October 05 after he suffered a fall at home. His roommate heard him call out and then heard him hit the floor. It is not known how long he was unconscious but this is not considered to be very long by the patient. He does have a history of 1 seizure in the past in the setting of alcohol withdrawal likely, but on arousal from this fall he was confused for a period of time and also had a laceration to his left ankle. The patient denies any tongue biting with this episode or bowel bladder incontinence. He has not felt any recent palpitations and has does not recall any premonitory symptoms prior to his fall. Neurology is consulted for further management and recommendations. Review of Systems All systems: negative Eyes: bilateral blurred vision (Patient has chronic vision problems and wears glasses.) Cardiovascular: Reports chest pain (Patient's son noticing severe chest pain last weekend but denies chest pain currently.), Reports dyspnea on exertion Respiratory: Reports cough Gastrointestinal: Reports constipation Musculoskeletal: Reports low back pain Neurological: Reports as per HPI Psychiatric: Reports sleep disturbances (Patient notes disturbed sleep at night he may occasionally wake with shortness of breath and he has been noted to stop breathing at night as well.) Hematologic/Lymphatic: Reports easy bruising Past Medical History Past Medical History: Atrial Fibrillation, Chest Pain / Angina, Heart Failure, COPD, Hypertension, Liver Disease, Myocardial Infarction (MD), Respiratory Disorder, Syncope Additional Past Medical History / Comment(s): Home oxygen use@2-3L PRN COPD doesn't wear it, MD- patient reports having 3-4 MD's, + CABG -triple bypass scar, + AICD/PCCM "I have a machine inside that sends all the info to my heart doctor" , Abdominal Hernia surgery x2, paracentesis as needed- last times was at [facility] about 4 months ago per patient Last Myocardial Infarction Date:: 1992 History of Any Multi-Drug Resistant Organisms: None Reported Past Surgical History: AICD, Cholecystectomy, Coronary Bypass/CABG, Heart Esperanza terization With Stent, Hernia Repair, Pacemaker Additional Past Surgical History / Comment(s): CABG, AICD/Pacemaker placed about 10 years ago per patient 07/19/24, Hernia repair abdominal x2 Past Anesthesia/Blood Transfusion Reactions: No Reported Reaction Date of Last Stent Placement:: 1992 Type of Cardiac Device: Permanent Pacemaker, AICD Device Placement Date:: 1992 Past Psychological History: Anxiety Smoking Status: Current every day smoker Past Alcohol Use History: Daily Additional Past Alcohol Use History / Comment(s): 12-14 beers a day Past Drug Use History: Marijuana Additional Drug Use History / Comment(s): on occasion - Past Family History Mother Family Medical History: Cancer Father Family Medical History: Cancer Medications and Allergies Home Medications Medication Instructions Recorded Confirmed Type HYDROcodone/APAP 10-325MG [[place] 1 tab PO Q6H PRN 07/19/24 09/30/24 History 10-325] LORazepam 2 mg PO TID PRN 07/19/24 09/30/24 History Apixaban [Eliquis] 5 mg PO BID #60 tab 07/25/24 09/30/24 Rx Aspirin 81 mg PO DAILY #30 tab 07/25/24 09/30/24 Rx Atorvastatin [Lipitor] 40 mg PO DAILY #30 tab 07/25/24 09/30/24 Rx Bumetanide [BUMEX] 1 mg PO DAILY #30 tab 07/25/24 09/30/24 Rx Metoprolol Tartrate [Lopressor] 25 mg PO BID #60 tab 07/25/24 09/30/24 Rx Potassium Chloride [K-Tab ER] 20 meq PO DAILY #30 tab 08/01/24 09/30/24 Rx Midodrine [ProAmatine] 5 mg PO BID PRN #30 tablet 08/11/24 09/30/24 Rx Empagliflozin [Jardiance] 10 mg PO DAILY 09/30/24 09/30/24 History Pantoprazole Sodium [Protonix] 20 mg PO DAILY 09/30/24 09/30/24 History Allergies Allergy/AdvReac Type Severity Reaction Status Date / Time chloroxine [From Capitrol] AdvReac Rash/Hives Verified 10/05/24 14:17 Physical Examination - Vital Signs Vital Signs: Vital Signs Temp Pulse Pulse Resp BP BP Pulse Ox 10/06/24 04:26 65 18 120/75 10/06/24 02:03 62 18 128/69 10/05/24 23:30 70 18 114/65 99 10/05/24 21:47 18 10/05/24 21:28 98.2 F 71 18 128/69 96 10/05/24 18:24 60 18 109/74 100 10/05/24 17:04 61 18 117/67 100 10/05/24 15:34 64 18 117/64 94 L 10/05/24 14:10 68 18 131/69 96 Intake and Output 10/05/24 10/05/24 10/06/24 14:59 22:59 06:59 Output Total 1200 Balance -1200 Output: Urine 1200 Other: Voiding Method Urinal Weight 65.317 kg 65.317 kg - Constitutional General appearance: average body habitus, cooperative - EENT EENT: PERRL, hearing intact, vision intact - Respiratory Respiratory: chest non-tender, lungs clear, normal breath sounds - Cardiovascular Cardiovascular: no murmurs (There is an irregular rate without P waves noted on the laboratory monitor consistent with atrial fibrillation, however however, rate is between 60 and 100.) - Gastrointestinal Gastrointestinal: normoactive bowel sounds, non-tender - Integumentary Integumentary: other (She has some bruising to his upper extremities.) - Neurologic Cranial nerve examination: PERRL, EOMI, VFF, face symmetric, tongue midline Speech examination: intact Sensorimotor examination: intact Detailed motor examination: full strength in all major muscle groups Detailed sensory examination: intact Reflex and gait examination: intact Results Pertinent studies include CT of the head and cervical spine from October 05 with evidence of small vessel disease with no acute changes in the brain with some mild multilevel degenerative joint disease worse at C5-7 with some disc space narrowing and osteophytosis as well as some COPD changes in the lungs but no neuroforaminal stenosis. Chest x-ray reveals cardiomegaly with pulmonary vascular congestion and bilateral pleural effusions. Left ankle x-ray reveals no evidence of fracture. EKG reveals pacemaker with rhythm of 71. Pertinent laboratories include creatinine of 0.68 sodium low at 132 potassium slightly low at 3.3. Urine drug screen is positive for opiates and a lactate was elevated at 4.7. - Laboratory Findings CBC and BMP: 10/05/24 15:01 10/05/24 15:01 Abnormal Lab Findings: Abnormal Labs 10/05/24 10/05/24 10/05/24 14:51 15:01 15:01 WBC 3.4 L RBC 3.43 L Hgb 9.4 L Hct 30.0 L RDW 16.0 H Lymphocytes # 0.6 L PT 13.9 H INR 1.3 H Sodium Potassium Chloride Glucose Plasma Lactic Acid Tay Total Bilirubin Ammonia Urine Opiates Screen Detected H 10/05/24 10/05/24 15:01 15:01 WBC RBC Hgb Hct RDW Lymphocytes # PT INR Sodium 132 L Potassium 3.3 L Chloride 95 L Glucose 100 H Plasma Lactic Acid Tay 4.7 H* Total Bilirubin 1.5 H Ammonia 62 H Urine Opiates Screen Assessment and Plan Assessment: Mr. Price is a 59-year-old right-handed male with history of atrial f ibrillation as well as past history of alcoholism with 1 alcohol-induced seizure in the past. He suffered a fall last night without known premonitory symptoms. He did not lose continence or bite his tongue. He was confused thereafter for period of time and neurology's been consulted considering possible seizure. Plan: 1. I have ordered a routine electroencephalogram to screen for epileptiform discharges. If positive I will place him on Keppra 500 mg twice daily, but I do not see any need for urgent anticonvulsants at this time. 2. I have also ordered a prolactin level to screen for evidence of possible epileptic seizures suffered last night. The prolactin may still be elevated at this time if this were a seizure. 3. The patient states he has not used alcohol since July of this year; therefore, if an epileptic seizure is suggested by EEG the patient will require anticonvulsants. 4. The patient should be instructed not to drive for 6 months after this event as he had an unexplained loss of consciousness. 5. Unfortunately neurology will not be available over the weekend. His EEG will be read today and further recommendations will be made thereafter. Dr. Dannie Wade will resume neurology care on October 09. Time with Patient: Less than 30
--- NOTE | 2024-10-06 10:22 | P.CRDCN ---
History of Present Illness History of present illness: HISTORY OF PRESENT ILLNESS: This is a 59-year-old male with a past medical history significant for coronary artery disease with previous bypass, cardiomyopathy, ICD implantation, hyperten jase, and hyperlipidemia. Patient has not followed up with a dental service chief in a few years. We have been asked to see the patient in consultation for syncope. Patient examined at the bedside in the ER by Dr. Cleveland. Patient was found on the floor by his roommate. Patient did lose consciousness. Patient does not remember the events prior to falling. He denies any chest pain or pressure. Denies any shortness of breath. The patient does have a history of seizures that were likely alcohol induced. DIAGNOSTICS: - EKG reveals ventricular paced rhythm - Chest xray cardiomegaly, pulmonary vascular congestion and bilateral pleural effusions. - Laboratory data: WBC 3.4. Hemoglobin 9.4. Platelet count 152. Sodium 132. Potassium 3.3. BUN 14. Creatinine 0.68. proBNP 1470. Troponin 0.023. - Current home cardiac medication list has not been updated at the time of examination - Echocardiogram obtained in September 2024 revealed ejection fraction 25 to 30% with eccentric moderate MR REVIEW OF SYSTEMS: At the time of my exam: CONSTITUTIONAL: Denies fever or chills. HEENT: Denies blurred vision, vision changes, or eye pain. Denies hemoptysis CARDIOVASCULAR: Denies chest pain. Denies orthopnea. Denies PND. Denies palpitations RESPIRATORY: Denies shortness of breath. GASTROINTESTINAL: Denies abdominal pain. Denies nausea or vomiting. HEMATOLOGIC: Denies bleeding disorders. GENITOURINARY: Denies any blood in urine. SKIN: Denies pruitis. Denies rash. PHYSICAL EXAM: VITAL SIGNS: Reviewed. GENERAL: Well-developed in no acute distress. HEENT: Head is normocephalic. Pupils are equal, round. Sclerae anicteric. Mucous membranes of the mouth are moist. Neck supple. No JVD or thyromegaly LUNGS: Respirations even and unlabored. Lungs essentially clear to auscultation bilaterally. HEART: Regular rate and rhythm. S1 and S2 heard. ABDOMEN: Soft. Nondistended. Nontender. EXTREMITIES: Normal range of motion. No clubbing or cyanosis. Peripheral pulses intact. No lower extremity edema NEUROLOGIC: Awake and alert. Oriented x 3. ASSESSMENT: Syncope, etiology unknown Coronary artery disease with previous CABG Ischemic cardiomyopathy, EF 25 to 30% History of ICD implantation History of VT ablation Congestive heart failure with reduced EF, currently euvolemic History of paroxysmal atrial fibrillation, on Eliquis outpatient History of alcohol abuse with previous paracentesis PLAN: No need to obtain echocardiogram as this was performed in September 2024 Resume home cardiac medications when medication list has been verified Obtain orthostatic blood pressures Interrogate ICD Continue telemetry monitoring Further recommendations pending patient course Nurse practitioner note has been reviewed by physician. Signing provider agrees with the documented findings, assessment, and plan of care documented by CHAIR PAD [employer]ER as a scribe. Past Medical History Past Medical History: Atrial Fibrillation, Chest Pain / Angina, Heart Failure, COPD, Hypertension, Liver Disease, Myocardial Infarction (RI), Respiratory Disorder, Syncope Additional Past Medical History / Comment(s): Home oxygen use@2-3L PRN COPD doesn't wear it, RI- patient reports having 3-4 RI's, + CABG -triple bypass scar, + AICD/PCCM "I have a machine inside that sends all the info to my heart doctor" , Abdominal Hernia surgery x2, paracentesis as needed- last times was at [facility] about 4 months ago per patient Last Myocardial Infarction Date:: 1992 History of Any Multi-Drug Resistant Organisms: None Reported Past Surgical History: AICD, Cholecystectomy, Coronary Bypass/CABG, Heart Catheterization With Stent, Hernia Repair, Pacemaker Additional Past Surgical History / Comment(s): CABG, AICD/Pacemaker placed about 10 years ago per patient 07/19/24, Hernia repair abdominal x2 Past Anesthesia/Blood Transfusion Reactions: No Reported Reaction Date of Last Stent Placement:: 1992 Type of Cardiac Device: Permanent Pacemaker, AICD Device Placement Date:: 1992 Past Psychological History: Anxiety Smoking Status: Current every day smoker Past Alcohol Use History: Daily Additional Past Alcohol Use History / Comment(s): 12-14 beers a day Past Drug Use History: Marijuana Additional Drug Use History / Comment(s): on occasion - Past Family History Mother Family Medical History: Cancer Father Family Medical History: Cancer Medications and Allergies Home Medications Medication Instructions Recorded Confirmed Type HYDROcodone/APAP 10-325MG [[place] 1 tab PO Q6H PRN 07/19/24 09/30/24 History 10-325] LORazepam 2 mg PO TID PRN 07/19/24 09/30/24 History Apixaban [Eliquis] 5 mg PO BID #60 tab 07/25/24 09/30/24 Rx Aspirin 81 mg PO DAILY #30 tab 07/25/24 09/30/24 Rx Atorvastatin [Lipitor] 40 mg PO DAILY #30 tab 07/25/24 09/30/24 Rx Bumetanide [BUMEX] 1 mg PO DAILY #30 tab 07/25/24 09/30/24 Rx Metoprolol Tartrate [Lopressor] 25 mg PO BID #60 tab 07/25/24 09/30/24 Rx Potassium Chloride [K-Tab ER] 20 meq PO DAILY #30 tab 08/01/24 09/30/24 Rx Midodrine [ProAmatine] 5 mg PO BID PRN #30 tablet 08/11/24 09/30/24 Rx Empagliflozin [Jardiance] 10 mg PO DAILY 09/30/24 09/30/24 History Pantoprazole Sodium [Protonix] 20 mg PO DAILY 09/30/24 09/30/24 History Allergies Allergy/AdvReac Type Severity Reaction Status Date / Time chloroxine [From Capitrol] AdvReac Rash/Hives Verified 10/05/24 14:17 Physical Exam Vitals: Vital Signs Temp Pulse Pulse Resp BP BP Pulse Ox 10/06/24 08:15 99.4 F 63 16 127/68 100 10/06/24 04:26 65 18 120/75 10/06/24 02:03 62 18 128/69 10/05/24 23:30 70 18 114/65 99 10/05/24 21:47 18 10/05/24 21:28 98.2 F 71 18 128/69 96 10/05/24 18:24 60 18 109/74 100 10/05/24 17:04 61 18 117/67 100 10/05/24 15:34 64 18 117/64 94 L 10/05/24 14:10 68 18 131/69 96 Intake and Output 10/05/24 10/06/24 10/06/24 22:59 06:59 14:59 Output Total 1200 Balance -1200 Output: Urine 1200 Other: Voiding Method Urinal Weight 65.317 kg Results 10/05/24 15:01 10/05/24 15:01 Cardiac Enzymes 10/05/24 10/05/24 Range/Units 15:01 15:01 AST 34 (17-59) U/L Troponin I 0.023 (0.000-0.034) ng/mL Coagulation 10/05/24 Range/Units 15:01 PT 13.9 H (10.0-12.5) sec APTT 26.1 (22.0-30.0) sec CBC 10/05/24 Range/Units 15:01 WBC 3.4 L (3.8-10.6) k/uL RBC 3.43 L (4.30-5.90) m/uL Hgb 9.4 L (13.0-17.5) gm/dL Hct 30.0 L (39.0-53.0) % Plt Count 152 (150-450) k/uL Comprehensive Metabolic Panel 10/05/24 Range/Units 15:01 Sodium 132 L (137-145) mmol/L Potassium 3.3 L (3.5-5.1) mmol/L Chloride 95 L (98-107) mmol/L Carbon Dioxide 27 (22-30) mmol/L BUN 14 (9-20) mg/dL Creatinine 0.68 (0.66-1.25) mg/dL Glucose 100 H (74-99) mg/dL Calcium 8.9 (8.4-10.2) mg/dL AST 34 (17-59) U/L ALT 16 (4-49) U/L Alkaline Phosphatase 111 (38-126) U/L Total Protein 7.0 (6.3-8.2) g/dL Albumin 3.9 (3.5-5.0) g/dL Current Medications Generic Name Dose Route Start Last Admin Trade Name Freq PRN Reason Stop Dose Admin Acetaminophen 650 mg 10/05/24 20:30 10/05/24 23:53 Acetaminophen Tab 325 Mg Tab PO 650 mg Q6HR PRN Administration Mild Pain or Fever > 100.5 Naloxone HCl 0.2 mg 10/05/24 20:30 Naloxone 0.4 Mg/Ml 1 Ml Vial IV Q2M PRN Opioid Reversal Intake and Output 10/05/24 10/06/24 10/06/24 22:59 06:59 14:59 Output Total 1200 Balance -1200 Output: Urine 1200 Other: Voiding Method Urinal Weight 65.317 kg 10/05/24 15:01 10/05/24 15:01
[2024-10-06 10:36] LABS: Basophils # (A) 0.04 X 10*3/uL (0.00-0.10); Basophils % (A) 0.8 %; Eosinophils # (A) 0.06 X 10*3/uL (0.04-0.35); Eosinophils % (A) 1.2 %; HCT 28.4 % (39.6-50.0); HGB 8.6 g/dL (13.0-17.0); Lymphocytes # (A) 0.71 X 10*3/uL (0.90-5.00); Lymphocytes % (A) 14.3 %; MCH 26.5 pg (27.0-32.0); MCHC 30.3 g/dL (32.0-37.0); MCV 87.4 FL (80.0-97.0); Mean Platelet Volume 12.2 FL (9.5-12.2); Monocytes # (A) 0.56 X 10*3/uL (0.20-1.00); Monocytes % (A) 11.3 %; NRBC Per 100 WBC 0 X 10*3/uL (0.00-0.01); Neutrophils # (A) 3.59 X 10*3/uL (1.80-7.70); Neutrophils % (A) 72.2 %; Platelet Count 149 X 10*3/uL (140-440); RBC 3.25 X 10*6/uL (4.40-5.60); RDW 15.9 % (11.5-14.5); WBC 4.97 X 10*3/uL (4.50-10.00)
[2024-10-06 10:53] LABS: BUN/Creat Ratio 17.12 Ratio (12.00-20.00); Blood Urea Nitrogen 13.7 mg/dL (9.0-27.0); Calcium 8.8 mg/dL (8.7-10.3); Carbon Dioxide 28.2 mmol/L (21.6-31.8); Chloride 96 mmol/L (96-109); Glucose 87 mg/dL (70-110); Potassium 3.7 mmol/L (3.5-5.5); Sodium 136 mmol/L (135-145)
[2024-10-06] MEDS ORDERED: MIDODRINE 5 MG TAB PO PRN (11:02)
[2024-10-06] MEDS: METOPROLOL TARTRATE 25 MG TAB PO SCH (12:44)
[2024-10-06] MEDS: BUMETANIDE 1 MG TAB PO SCH (12:44)
[2024-10-06] MEDS: DAPAGLIFLOZIN PROPANEDIOL 5 MG TABLET PO SCH (12:44)
--- NOTE | 2024-10-06 18:40 | P.HPIM ---
History of Present Illness H&P Date: 10/06/24 History of present illness; Patient is 59-year-old male with alcoholic liver cirrhosis, A-fib on Eliquis, CHF with EF 20 to 30%, CAD with CABG, ICD placement, who presents for syncopal episode. Before syncope patient last recalls lying in bed comfortably with no symptoms, only later to be taken out of his home by EMS. He states his roommate noticed him and called EMS. Unknown downtime. No tonic-clonic movements, tongue biting, or incontinence noted. He is unsure if he hit his head but feels no head or neck pain at this time. He was confused after waking up. He does state a similar situation happened in July. History of 1 alcoholic seizure. He was seen in the ER 1 week ago for chest pain and subsequently discharged. Currently patient reports absence of fever, chills, chest pain, palpitations, diaphoresis, dyspnea, cough, nausea, vomiting, constipation, diarrhea, abdominal pain, weakness, myalgia, dizziness, headache, and dysuria. Initial labs WBC 3.4, hemoglobin 9.4, RDW 16.0, INR 1.3, sodium 132, potassium 3.3, chloride 95, total bili 1.5, ammonia 62, troponin 0.023, proBNP 1470, UDS positive for opioids. EKG done in the ER independently interpreted showed ventricular paced rhythm, no ST segment elevation or depression seen, no T-wave inversions seen. Chest x-ray done independently interpreted in the ER showed cardiomegaly with pulmonary vascular congestion. CT head done independently interpreted showed no acute intracranial process or fracture. Ankle x-ray interpreted as no evidence of acute fracture. Spoke with the ER physician, patient admission was accepted by internal medicine service for treatment. REVIEW OF SYSTEMS: Pertinent positives and negatives noted in HPI. PHYSICAL EXAMINATION: Vitals reviewed GENERAL: No acute distress. Well developed, well nourished. HEENT: Pupils are round and equally reacting to light. EOMI. No scleral icterus. Normocephalic, atraumatic. No pharyngeal erythema. No apparent tongue biting. CARDIOVASCULAR: S1 and S2 present. No murmurs, rubs, or gallops. PULMONARY: Chest is clear to auscultation, no wheezing, rhonchi, or crackles. ABDOMEN: Soft, nontender, nondistended, normoactive bowel sounds. No palpable organomegaly. MUSCULOSKELETAL: Left ankle laceration. No apparent joint swelling and deformities. EXTREMITIES: No apparent cyanosis, clubbing, or pedal edema. NEUROLOGICAL: The patient is alert and oriented x3, Gross neurological examination did not reveal any focal deficits. 5/5 Strength bilateral UE and LE. SKIN: No apparent rashes. Assessment and plan Patient is 59-year-old male with alcoholic liver cirrhosis, A-fib on Eliquis, CHF with EF 20 to 30%, CAD with CABG, ICD placement, who presents after syncope. # Syncope Obtain orthostatic blood pressure Continuous cardiac monitoring EEG pending Prolactin is WNL, alcohol WNL Cardiology and neurology consulted #Anemia of chronic disease Initial hemoglobin 9.4 => 8.6 Monitor CBC Chronic Medical Conditions #CAD Resume home medication F: P.o. E: Replete as needed N: Heart healthy diet DVT ppx: Eliquis 5 mg twice daily Code status: Full code Anticipated discharge place: Home Anticipated discharge time: 1 to 2 days Dictation was produced using [employer] dictation software. Please excuse any grammatical, word or spelling errors. Past Medical History Past Medical History: Atrial Fibrillation, Chest Pain / Angina, Heart Failure, COPD, Hypertension, Liver Disease, Myocardial Infarction ([place]), Respiratory Disorder, Syncope Additional Past Medical History / Comment(s): Home oxygen use@2-3L PRN COPD doesn't wear it, [place]- patient reports having 3-4 KS's, + CABG -triple bypass scar, + AICD/PCCM "I have a machine inside that sends all the info to my heart doctor" , Abdominal Hernia surgery x2, paracentesis as needed- last times was at [facility] about 4 months ago per patient Last Myocardial Infarction Date:: 1992 History of Any Multi-Drug Resistant Organisms: None Reported Past Surgical History: AICD, Cholecystectomy, Coronary Bypass/CABG, Heart Catheterization With Stent, Hernia Repair, Pacemaker Additional Past Surgical History / Comment(s): CABG, AICD/Pacemaker placed about 10 years ago per patient 07/19/24, Hernia repair abdominal x2 Past Anesthesia/Blood Transfusion Reactions: No Reported Reaction Date of Last Stent Placement:: 1992 Type of Cardiac Device: Permanent Pacemaker, AICD Device Placement Date:: 1992 Past Psychological History: Anxiety Smoking Status: Current every day smoker Past Alcohol Use History: Daily Additional Past Alcohol Use History / Comment(s): 12-14 beers a day Past Drug Use History: Marijuana Additional Drug Use History / Comment(s): on occasion - Past Family History Mother Family Medical History: Cancer Father Family Medical History: Cancer Medications and Allergies Home Medications Medication Instructions Recorded Confirmed Type HYDROcodone/APAP 10-325MG [Grover 1 tab PO Q6H PRN 07/19/24 10/06/24 History 10-325] LORazepam 2 mg PO TID PRN 07/19/24 10/06/24 History Apixaban [Eliquis] 5 mg PO BID #60 tab 07/25/24 10/06/24 Rx Aspirin 81 mg PO DAILY #30 tab 07/25/24 10/06/24 Rx Atorvastatin [Lipitor] 40 mg PO DAILY #30 tab 07/25/24 10/06/24 Rx Bumetanide [BUMEX] 1 mg PO DAILY #30 tab 07/25/24 10/06/24 Rx Metoprolol Tartrate [Lopressor] 25 mg PO BID #60 tab 07/25/24 10/06/24 Rx Potassium Chloride [K-Tab ER] 20 meq PO DAILY #30 tab 08/01/24 10/06/24 Rx Midodrine [ProAmatine] 5 mg PO BID PRN #30 tablet 08/11/24 10/06/24 Rx Empagliflozin [Jardiance] 10 mg PO DAILY 09/30/24 10/06/24 History Pantoprazole Sodium [Protonix] 20 mg PO DAILY 09/30/24 10/06/24 History Albuterol Sulfate [Albuterol 2 puff INHALATION RT-QID PRN 10/06/24 10/06/24 History Sulfate Hfa] Ergocalciferol [Vitamin D2 (1250 1,250 mcg PO DIRECTED 10/06/24 10/06/24 History Mcg = 40017 Iu)] Fluticasone/Umeclidin/Vilanter 1 puff INHALATION RT-DAILY 10/06/24 10/06/24 History [Trelegy Ellipta 100-62.5-25] Nitroglycerin Sl Tabs [Nitrostat] 0.4 mg SL Q5M PRN 10/06/24 10/06/24 History Allergies Allergy/AdvReac Type Severity Reaction Status Date / Time chloroxine [From Capitrol] AdvReac Rash/Hives Verified 10/06/24 10:44 Physical Exam Vitals: Vital Signs Temp Pulse Pulse Resp BP BP Pulse Ox 10/06/24 08:15 99.4 F 63 16 127/68 100 10/06/24 04:26 65 18 120/75 10/06/24 02:03 62 18 128/69 10/05/24 23:30 70 18 114/65 99 10/05/24 21:47 18 10/05/24 21:28 98.2 F 71 18 128/69 96 10/05/24 18:24 60 18 109/74 100 10/05/24 17:04 61 18 117/67 100 10/05/24 15:34 64 18 117/64 94 L 10/05/24 14:10 68 18 131/69 96 Intake and Output 10/05/24 10/06/24 10/06/24 22:59 06:59 14:59 Output Total 1200 Balance -1200 Output: Urine 1200 Other: Voiding Method Urinal Weight 65.317 kg Results CBC & Chem 7: 10/06/24 06:18 10/06/24 06:18 Labs: Abnormal Lab Results - Last 24 Hours (Table) 10/05/24 10/05/24 10/05/24 Range/Units 14:51 15:01 15:01 WBC 3.4 L (3.8-10.6) k/uL RBC 3.43 L (4.30-5.90) m/uL Hgb 9.4 L (13.0-17.5) gm/dL Hct 30.0 L (39.0-53.0) % RDW 16.0 H (11.5-15.5) % Lymphocytes # 0.6 L (1.0-4.8) k/uL PT 13.9 H (10.0-12.5) sec INR 1.3 H (<1.2) Sodium (137-145) mmol/L Potassium (3.5-5.1) mmol/L Chloride (98-107) mmol/L Glucose (74-99) mg/dL Plasma Lactic Acid Tay (0.7-2.0) mmol/L Total Bilirubin (0.2-1.3) mg/dL Ammonia (<30) umol/L Urine Opiates Screen Detected H (NotDetected) 10/05/24 10/05/24 Range/Units 15:01 15:01 WBC (3.8-10.6) k/uL RBC (4.30-5.90) m/uL Hgb (13.0-17.5) gm/dL Hct (39.0-53.0) % RDW (11.5-15.5) % Lymphocytes # (1.0-4.8) k/uL PT (10.0-12.5) sec INR (<1.2) Sodium 132 L (137-145) mmol/L Potassium 3.3 L (3.5-5.1) mmol/L Chloride 95 L (98-107) mmol/L Glucose 100 H (74-99) mg/dL Plasma Lactic Acid Tay 4.7 H* (0.7-2.0) mmol/L Total Bilirubin 1.5 H (0.2-1.3) mg/dL Ammonia 62 H (<30) umol/L Urine Opiates Screen (NotDetected) Thrombosis Risk Factor Assmnt - Choose All That Apply Each Factor Represents 1 point: Abnormal pulmonary function (COPD), Age 41-60 years, Heart failure (<1month) Each Risk Factor Represents 3 Points: History of DVT/PE Other congenital or acquired thrombophilia - If yes, enter type in comment: No Thrombosis Risk Factor Assessment Total Risk Factor Score: 6 Thrombosis Risk Factor Assessment Level: High Risk
[2024-10-06] MEDS ORDERED: LORazepam 1 MG TAB PO PRN (18:41)
[2024-10-06] MEDS ORDERED: ALBUTEROL NEBULIZED 2.5 MG/3 ML INHALATION PRN (18:41)
[2024-10-06] MEDS: APIXABAN 5 MG TAB PO SCH (20:11)
--- NOTE | 2024-10-06 22:58 | EEG ---
ELECTROENCEPHALOGRAM REPORT REASON FOR STUDY: A 59-year-old male, status post fall with confusion following this. CURRENT MEDICATIONS: 1. Tylenol. 2. Naloxone. CHARACTERIZATION OF RECORD: This 22-minute electroencephalogram was characterized by background rhythm of 9 to 10 hertz low beta rhythm which was occipitally dominant as well as reactive to eye opening and eye closure. Photic stimulation was performed and resulted in a driving response from 10 to 14 hertz. No hyperventilation was performed on this study. There were no evidence of sleep features present during the study throughout this electroencephalogram, there was no evidence of focal slowing, focal spikes, sharp waves, or epileptiform discharges. CONCLUSION: This is a normal 22-minute awake electroencephalogram. MMODL / IJN: [id number] /
[2024-10-07] MEDS: ASPIRIN 81 MG PO SCH (09:37)
[2024-10-07] MEDS: POTASSIUM CHLORIDE ER 20 MEQ TAB.ER PO SCH (09:37)
[2024-10-07] MEDS: ATORVASTATIN 40 MG TAB PO SCH (09:37)
[2024-10-07] MEDS: PANTOPRAZOLE 40 MG TABLET PO SCH (09:37)
[2024-10-07 10:46] LABS: Basophils # (A) 0.04 X 10*3/uL (0.00-0.10); Eosinophils # (A) 0.09 X 10*3/uL (0.04-0.35); Eosinophils % (A) 2.3 %; HCT 28.4 % (39.6-50.0); HGB 8.4 g/dL (13.0-17.0); Lymphocytes # (A) 0.72 X 10*3/uL (0.90-5.00); Lymphocytes % (A) 18.3 %; MCH 26.3 pg (27.0-32.0); MCHC 29.6 g/dL (32.0-37.0); Mean Platelet Volume 11.6 FL (9.5-12.2); Monocytes # (A) 0.45 X 10*3/uL (0.20-1.00); Monocytes % (A) 11.5 %; NRBC Per 100 WBC 0 X 10*3/uL (0.00-0.01); Neutrophils # (A) 2.62 X 10*3/uL (1.80-7.70); Neutrophils % (A) 66.6 %; Platelet Count 128 X 10*3/uL (140-440); RBC 3.19 X 10*6/uL (4.40-5.60); RDW 15.7 % (11.5-14.5); WBC 3.93 X 10*3/uL (4.50-10.00)
[2024-10-07 11:10] LABS: BUN/Creat Ratio 24.86 Ratio (12.00-20.00); Blood Urea Nitrogen 17.4 mg/dL (9.0-27.0); Carbon Dioxide 25.4 mmol/L (21.6-31.8); Chloride 96 mmol/L (96-109); Glucose 97 mg/dL (70-110); Potassium 3.7 mmol/L (3.5-5.5); Sodium 133 mmol/L (135-145)
[2024-10-07 11:11] LABS: Calcium 8.7 mg/dL (8.7-10.3)
--- NOTE | 2024-10-07 11:20 | P.PN ---
Subjective Progress Note Date: 10/07/24 HISTORY OF PRESENT ILLNESS: This is a 59-year-old male with a past medical history significant for coronary artery disease with previous bypass, cardiomyopathy, ICD implantation, hypertension, and hyperlipidemia. 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 We have been asked to see the patient in consultation for syncope. Patient examined at the bedside in the ER by Dr. Cleveland. Patient was found on the floor by his roommate. Patient did lose consciousness. Patient does not remember the events prior to falling. He denies any chest pain or pressure. Denies any shortness of breath. The patient does have a history of seizures that were likely alcohol induced. DIAGNOSTICS: - EKG reveals ventricular paced rhythm - Chest xray cardiomegaly, pulmonary vascular congestion and bilateral pleural effusions. - Laboratory data: WBC 3.4. Hemoglobin 9.4. Platelet count 152. Sodium 132. Potassium 3.3. BUN 14. Creatinine 0.68. proBNP 1470. Troponin 0.023. - Current home cardiac medication list has not been updated at the time of examination - Echocardiogram obtained in September 2024 revealed ejection fraction 25 to 30% with eccentric moderate MR REVIEW OF SYSTEMS: At the time of my exam: CONSTITUTIONAL: Denies fever or chills. HEENT: Denies blurred vision, vision changes, or eye pain. Denies hemoptysis CARDIOVASCULAR: Denies chest pain. Denies orthopnea. Denies PND. Denies palpitations RESPIRATORY: Denies shortness of breath. GASTROINTESTINAL: Denies abdominal pain. Denies nausea or vomiting. HEMATOLOGIC: Denies bleeding disorders. GENITOURINARY: Denies any blood in urine. SKIN: Denies pruitis. Denies rash. 10/07/2024 Patient is seen and examined at bedside this a.m. Patient's blood pressure is low normal. Patient is not a very good historian, he is telling me that he just passes out without any notifications or any prodrome. He is not reporting any lightheadedness or dizziness however. He appears euvolemic on physical examination today PHYSICAL EXAM: VITAL SIGNS: Reviewed. GENERAL: Well-developed in no acute distress. HEENT: Head is normocephalic. Pupils are equal, round. Sclerae anicteric. Mucous membranes of the mouth are moist. Neck supple. No JVD or thyromegaly LUNGS: Respirations even and unlabored. Lungs essentially clear to auscultation bilaterally. HEART: Regular rate and rhythm. S1 and S2 heard. ABDOMEN: Soft. Nondistended. Nontender. EXTREMITIES: Normal range of motion. No clubbing or cyanosis. Peripheral pulses intact. No lower extremity edema NEUROLOGIC: Awake and alert. Oriented x 3. ASSESSMENT: Syncope, etiology unknown Coronary artery disease with previous CABG Ischemic cardiomyopathy, EF 25 to 30% History of ICD implantation History of VT ablation Congestive heart failure with reduced EF, currently euvolemic History of paroxysmal atrial fibrillation, on Eliquis outpatient History of alcohol abuse with previous paracentesis PLAN: No need to obtain echocardiogram as this was performed in September 2024 Will continue his aspirin, Eliquis, metoprolol. He is not on any JIM or ARB because of low blood pressure. He is getting Motrin as needed. He is getting Bumex 1 mg p.o. daily. I will check for his adrenal insufficiency by ordering a a.m. cortisol level for tomorrow a.m. I would obtain an updated orthostatic vital signs I reviewed the isolated irrigation which shows paroxysmal atrial fibrillation with no concerns of VT or V-fib since August and September. Continue telemetry monitoring Objective - Vital Signs Vital signs: Vital Signs Temp 98.5 F 10/07/24 07:00 Pulse 60 10/07/24 07:00 Resp 17 10/07/24 07:00 BP 128/71 10/07/24 07:00 Pulse Ox 95 10/07/24 07:00 FiO2 Intake & Output 10/06/24 10/07/24 10/07/24 18:59 06:59 18:59 Output Total 100 650 Balance -100 -650 Output: Urine 100 650 Other: Voiding Method Toilet Toilet Urinal Urinal # Voids 2 - Labs CBC & Chem 7: 10/07/24 05:55 10/07/24 05:55 Labs: Abnormal Lab Results - Last 24 Hours (Table) 10/07/24 10/07/24 Range/Units 05:55 05:55 WBC 3.93 L (4.50-10.00) X 10*3/uL RBC 3.19 L (4.40-5.60) X 10*6/uL Hgb 8.4 L (13.0-17.0) g/dL Hct 28.4 L (39.6-50.0) % MCH 26.3 L (27.0-32.0) pg MCHC 29.6 L (32.0-37.0) g/dL RDW 15.7 H (11.5-14.5) % Plt Count 128 L (140-440) X 10*3/uL Lymphocytes # 0.72 L (0.90-5.00) X 10*3/uL Sodium 133 L (135-145) mmol/L BUN/Creatinine Ratio 24.86 H (12.00-20.00) Ratio
[2024-10-07] MEDS: IRON PS CMPLX/VIT B12/FA 1 EACH CAP PO SCH (12:48)
--- NOTE | 2024-10-07 17:22 | P.PN ---
Subjective Progress Note Date: 10/07/24 History of present illness; Patient is 59-year-old male with alcoholic liver cirrhosis, A-fib on Eliquis, C HF with EF 20 to 30%, CAD with CABG, ICD placement, who presents for syncopal episode. Before syncope patient last recalls lying in bed comfortably with no symptoms, only later to be taken out of his home by EMS. He states his roommate noticed him and called EMS. Unknown downtime. No tonic-clonic movements, tongue biting, or incontinence noted. He is unsure if he hit his head but feels no head or neck pain at this time. He was confused after waking up. He does state a similar situation happened in July. History of 1 alcoholic seizure. He was seen in the ER 1 week ago for chest pain and subsequently discharged. Currently patient reports absence of fever, chills, chest pain, palpitations, diaphoresis, dyspnea, cough, nausea, vomiting, constipation, diarrhea, abdominal pain, weakness, myalgia, dizziness, headache, and dysuria. Initial labs WBC 3.4, hemoglobin 9.4, RDW 16.0, INR 1.3, sodium 132, potassium 3.3, chloride 95, total bili 1.5, ammonia 62, troponin 0.023, proBNP 1470, UDS positive for opioids. EKG done in the ER independently interpreted showed ventricular paced rhythm, no ST segment elevation or depression seen, no T-wave inversions seen. Chest x-ray done independently interpreted in the ER showed cardiomegaly with pulmonary vascular congestion. CT head done independently interpreted showed no acute intracranial process or fracture. Ankle x-ray interpreted as no evidence of acute fracture. 10/07/2024 Patient seen and examined at bedside. Denies chest pain, palpitations, dizziness or weakness. Today's labs WBC 3.93, hemoglobin 8.4, sodium 133, pot assium 3.7. REVIEW OF SYSTEMS: Pertinent positives and negatives noted in HPI. PHYSICAL EXAMINATION: Vitals reviewed GENERAL: No acute distress. Well developed, well nourished. HEENT: Pupils are round and equally reacting to light. EOMI. No scleral icterus. Normocephalic, atraumatic. No pharyngeal erythema. No apparent tongue biting. CARDIOVASCULAR: S1 and S2 present. No murmurs, rubs, or gallops. PULMONARY: Chest is clear to auscultation, no wheezing, rhonchi, or crackles. ABDOMEN: Soft, nontender, nondistended, normoactive bowel sounds. No palpable organomegaly. MUSCULOSKELETAL: Left ankle laceration. No apparent joint swelling and deformities. EXTREMITIES: No apparent cyanosis, clubbing, or pedal edema. NEUROLOGICAL: The patient is alert and oriented x3, Gross neurological examination did not reveal any focal deficits. 5/5 Strength bilateral UE and LE. SKIN: No apparent rashes. Assessment and plan Patient is 59-year-old male with alcoholic liver cirrhosis, A-fib on Eliquis, CHF with EF 20 to 30%, CAD with CABG, ICD placement, who presents after syncope. # Fall Obtain orthostatic blood pressure Continuous cardiac monitoring EEG with normal findings Prolactin is WNL, alcohol WNL AM cortisol pending Cardiology and neurology consulted #Anemia of chronic disease Initial hemoglobin 9.4 => 8.6 Iron panel pending Monitor CBC Chronic Medical Conditions #CAD Resume home medication F: P.o. E: Replete as needed N: Heart healthy diet DVT ppx: Eliquis 5 mg twice daily Code status: Full code Anticipated discharge place: Home Anticipated discharge time: 1 to 2 days Dictation was produced using [employer] dictation software. Please excuse any grammatical, word or spelling errors. Objective - Vital Signs Vital signs: Vital Signs Temp 98.5 F 10/07/24 07:00 Pulse 60 10/07/24 07:00 Resp 17 10/07/24 07:00 BP 128/71 10/07/24 07:00 Pulse Ox 95 10/07/24 07:00 FiO2 Intake & Output 10/06/24 10/07/24 10/07/24 18:59 06:59 18:59 Output Total 100 650 Balance -100 -650 Output: Urine 100 650 Other: Voiding Method Toilet Toilet Urinal Urinal # Voids 2 - Labs CBC & Chem 7: 10/07/24 05:55 10/07/24 05:55 Labs: Abnormal Lab Results - Last 24 Hours (Table) 10/06/24 Range/Units 06:18 RBC 3.25 L (4.40-5.60) X 10*6/uL Hgb 8.6 L (13.0-17.0) g/dL Hct 28.4 L (39.6-50.0) % MCH 26.5 L (27.0-32.0) pg MCHC 30.3 L (32.0-37.0) g/dL RDW 15.9 H (11.5-14.5) % Lymphocytes # 0.71 L (0.90-5.00) X 10*3/uL
[2024-10-08 09:28] LABS: Basophils # (A) 0.04 X 10*3/uL (0.00-0.10); Basophils % (A) 0.9 %; Eosinophils # (A) 0.11 X 10*3/uL (0.04-0.35); Eosinophils % (A) 2.5 %; HCT 27.4 % (39.6-50.0); HGB 8.4 g/dL (13.0-17.0); Lymphocytes # (A) 0.67 X 10*3/uL (0.90-5.00); Lymphocytes % (A) 15.2 %; MCH 27.2 pg (27.0-32.0); MCHC 30.7 g/dL (32.0-37.0); MCV 88.7 FL (80.0-97.0); Mean Platelet Volume 13.4 FL (9.5-12.2); Monocytes # (A) 0.46 X 10*3/uL (0.20-1.00); Monocytes % (A) 10.5 %; NRBC Per 100 WBC 0 X 10*3/uL (0.00-0.01); Neutrophils # (A) 3.11 X 10*3/uL (1.80-7.70); Neutrophils % (A) 70.7 %; Platelet Count 132 X 10*3/uL (140-440); RBC 3.09 X 10*6/uL (4.40-5.60); RDW 15.9 % (11.5-14.5)
[2024-10-08 10:26] LABS: BUN/Creat Ratio 26.71 Ratio (12.00-20.00); Blood Urea Nitrogen 18.7 mg/dL (9.0-27.0); Calcium 8.7 mg/dL (8.7-10.3); Carbon Dioxide 29.3 mmol/L (21.6-31.8); Chloride 96 mmol/L (96-109); Glucose 99 mg/dL (70-110); Potassium 3.9 mmol/L (3.5-5.5); Sodium 135 mmol/L (135-145)
[2024-10-08 12:27] LABS: % Iron Saturation 10.4 (15.00-50.00)
[2024-10-08 20:07] VITALS: BP 117/73; PULSE 64; RESP 17; TEMP 98.5
--- NOTE | 2024-10-08 22:19 | P.PN ---
Subjective Progress Note Date: 10/08/24 HISTORY OF PRESENT ILLNESS: This is a 59-year-old male with a past medical history significant for coronary artery disease with previous bypass, cardiomyopathy, ICD implantation, hypertension, and hyperlipidemia. Patient has not followed up with a supervisor functional testing in a few years. We have been asked to see the patient in consultation for syncope. Patient examined at the bedside in the ER by Dr. Cleveland. Patient was found on the floor by his roommate. Patient did lose consciousness. Patient does not remember the events prior to falling. He denies any chest pain or pressure. Denies any shortness of breath. The patient does have a history of seizures that were likely alcohol induced. DIAGNOSTICS: - EKG reveals ventricular paced rhythm - Chest xray cardiomegaly, pulmonary vascular congestion and bilateral pleural effusions. - Laboratory data: WBC 3.4. Hemoglobin 9.4. Platelet count 152. Sodium 132. Potassium 3.3. BUN 14. Creatinine 0.68. proBNP 1470. Troponin 0.023. - Current home cardiac medication list has not been updated at the time of examination - Echocardiogram obtained in September 2024 revealed ejection fraction 25 to 30% with eccentric moderate MR REVIEW OF SYSTEMS: At the time of my exam: CONSTITUTIONAL: Denies fever or chills. HEENT: Denies blurred vision, vision changes, or eye pain. Denies hemoptysis CARDIOVASCULAR: Denies chest pain. Denies orthopnea. Denies PND. Denies palpitations RESPIRATORY: Denies shortness of breath. GASTROINTESTINAL: Denies abdominal pain. Denies nausea or vomiting. HEMATOLOGIC: Denies bleeding disorders. GENITOURINARY: Denies any blood in urine. SKIN: Denies pruitis. Denies rash. 10/07/2024 Patient is seen and examined at bedside this a.m. Patient's blood pressure is low normal. Patient is not a very good historian, he is telling me that he just passes out without any notifications or any prodrome. He is not reporting any lightheadedness or dizziness however. He appears euvolemic on physical examination today 10/08/2024 Patient is seen and examined at bedside this a.m. Blood pressure is normal today. Poor historian. Reports that he is feeling better and is wanting to go home. I checked for a.m. cortisol levels which were not significantly low. His orthostatic vital signs were not significantly abnormal. Device interrogation did not show any concerning findings. PHYSICAL EXAM: VITAL SIGNS: Reviewed. GENERAL: Well-developed in no acute distress. HEENT: Head is normocephalic. Pupils are equal, round. Sclerae anicteric. Mucous membranes of the mouth are moist. Neck supple. No JVD or thyromegaly LUNGS: Respirations even and unlabored. Lungs essentially clear to auscultation bilaterally. HEART: Regular rate and rhythm. S1 and S2 heard. ABDOMEN: Soft. Nondistended. Nontender. EXTREMITIES: Normal range of motion. No clubbing or cyanosis. Peripheral pulses intact. No lower extremity edema NEUROLOGIC: Awake and alert. Oriented x 3. ASSESSMENT: Syncope, etiology unknown Coronary artery disease with previous CABG Ischemic cardiomyopathy, EF 25 to 30% History of ICD implantation History of VT ablation Congestive heart failure with reduced EF, currently euvolemic History of paroxysmal atrial fibrillation, on Eliquis outpatient History of alcohol abuse with previous paracentesis Pertinent testing A.m. cortisol 11 Repeat orthostatic vital signs were not significantly positive. ICD interrogation did not show any significant arrhythmias other than paroxysmal atrial fibrillation. There were no concerns of VT or ventricular fibrillation since August and September. PLAN: No need to obtain echocardiogram as this was performed in September 2024 Will continue his aspirin, Eliquis, metoprolol. He is not on any JIM or ARB because of low blood pressure. He is getting Bumex 1 mg p.o. daily. Patient is cleared from cardiovascular standpoint. Objective - Vital Signs Vital signs: Vital Signs Temp 98.5 F 10/08/24 20:00 Pulse 64 10/08/24 20:00 Resp 17 10/08/24 20:00 BP 117/73 10/08/24 20:00 Pulse Ox 98 10/08/24 20:00 FiO2 Intake & Output 10/08/24 10/08/24 10/09/24 06:59 18:59 06:59 Intake Total 894 Output Total 1 1051 Balance -1 -157 Intake: Oral 894 Output: Urine 1050 Stool 1 1 Other: Voiding Method Toilet Toilet Toilet Urinal Urinal Urinal # Voids 3 - Labs CBC & Chem 7: 10/08/24 03:37 10/08/24 03:37 Labs: Abnormal Lab Results - Last 24 Hours (Table) 10/08/24 10/08/24 10/08/24 Range/Units 03:37 03:37 03:37 WBC 4.40 L (4.50-10.00) X 10*3/uL RBC 3.09 L (4.40-5.60) X 10*6/uL Hgb 8.4 L (13.0-17.0) g/dL Hct 27.4 L (39.6-50.0) % MCHC 30.7 L (32.0-37.0) g/dL RDW 15.9 H (11.5-14.5) % Plt Count 132 L (140-440) X 10*3/uL MPV 13.4 H (9.5-12.2) FL Lymphocytes # 0.67 L (0.90-5.00) X 10*3/uL BUN/Creatinine Ratio 26.71 H (12.00-20.00) Ratio Iron 44 L (65-175) UG/DL % Saturation 10.40 L (15.00-50.00)
== END 2024-10-08 21:27 | disposition home or self-care (01) ==
LOC: EC 14:05 → 6NMEDSUR 20:33
PROVIDERS: ADMIT Hospitalist; ATTEND Hospitalist
DX: R55 Syncope and collapse (principal); K70.30 Alcoholic cirrhosis of liver without ascites; I25.10 Atherosclerotic heart disease of native coronary artery without angina pectoris; I48.0 Paroxysmal atrial fibrillation; I11.0 Hypertensive heart disease with heart failure; I50.22 Chronic systolic (congestive) heart failure; I25.5 Ischemic cardiomyopathy; F41.9 Anxiety disorder, unspecified; E78.5 Hyperlipidemia, unspecified; E87.20 Acidosis, unspecified; S91.012A Laceration without foreign body, left ankle, initial encounter; W19.XXXA Unspecified fall, initial encounter; D63.8 Anemia in other chronic diseases classified elsewhere; I25.2 Old myocardial infarction; F17.200 Nicotine dependence, unspecified, uncomplicated; Z95.810 Presence of automatic (implantable) cardiac defibrillator; Z23 Encounter for immunization; Z95.5 Presence of coronary angioplasty implant and graft; Z79.01 Long term (current) use of anticoagulants; Z79.51 Long term (current) use of inhaled steroids; Z79.82 Long term (current) use of aspirin; Z79.84 Long term (current) use of oral hypoglycemic drugs; Z79.899 Other long term (current) drug therapy
CPT/HCPCS: 90471; 96374; 99285; 36415; 95816; 93005; 83880; 80053; 80048 ×3; 82533; 82140; 83540; 83550; 83605; 84484; 85025 ×4; 85610; 85730; 84146; 80306; 73610; 71046; 72125; 70450; 90715; G0378 ×4; G0480; J2270; 80320

== ENCOUNTER 2024-12-19 09:57 | Inpatient (IN) | payer MEDICARE, OTHER ==
--- NOTE | 2024-12-19 10:57 | ED ---
SOB HPI - General Chief Complaint: Shortness of Breath Stated Complaint: STARLA Time Seen by Provider: 12/19/24 10:52 Source: patient, RN notes reviewed Limitations: no limitations - History of Present Illness Initial Comments: 59-year-old male with history of congestive heart failure with a EF around 20 to 25%, COPD, hypertension, cirrhosis presenting for shortness of breath. Patient reports he left [facility] AGAINST MEDICAL ADVICE last night. States he left [facility] because he wanted to get into his primary care physician. States that shortness of breath has been ongoing however worsening over the past few days. Denies chest pain. He had paracentesis scheduled for tomorrow and reports his abdomen is very distended. He takes Lasix however did not take his medication this morning. - Related Data Home Medications Medication Instructions Recorded Confirmed Empagliflozin [Jardiance] 10 mg PO DAILY 09/30/24 12/19/24 Ergocalciferol [Vitamin D2 (1250 1,250 mcg PO CELESTE 10/06/24 12/19/24 Mcg = 33553 Iu)] Atorvastatin [Lipitor] 40 mg PO HS 12/19/24 12/19/24 Budesonide [Pulmicort] 0.5 mg INHALATION RT-BID@08,20 12/19/24 12/19/24 Furosemide [Lasix] 40 mg PO BID@0600,1600 12/19/24 12/19/24 HYDROcodone/APAP 5-325MG [[place] 1 tab PO Q6H PRN 12/19/24 12/19/24 5-325] Ipratropium-Albuterol Nebulize 3 ml INHALATION RT-QID@06,11,17,23 12/19/24 12/19/24 [Duoneb 0.5 mg-3 mg/3 ml Soln] Lactulose 20 gm PO BID 12/19/24 12/19/24 Magnesium Oxide [Magox 400] 400 mg PO DAILY 12/19/24 12/19/24 Melatonin 5 mg PO HS 12/19/24 12/19/24 Miconazole Nitrate 2% Powder 1 applic TOPICAL BID 12/19/24 12/19/24 Naloxone HCl [Narcan] 4 mg NASAL ONCE PRN 12/19/24 12/19/24 Sodium Chloride [[place]] 1 spray EA NOSTRIL Q1H PRN 12/19/24 12/19/24 Spironolactone 50 mg PO DAILY 12/19/24 12/19/24 Previous Rx's Medication Instructions Recorded Apixaban [Eliquis] 5 mg PO BID #60 tab 07/25/24 Metoprolol Tartrate [Lopressor] 25 mg PO BID #60 tab 07/25/24 Potassium Chloride [K-Tab ER] 20 meq PO DAILY #30 tab 08/01/24 Allergies Allergy/AdvReac Type Severity Reaction Status Date / Time chloroxine [From Capitrol] AdvReac Rash/Hives Verified 12/19/24 13:33 Review of Systems ROS Statement: Those systems with pertinent positive or pertinent negative responses have been documented in the HPI. ROS Other: All systems not noted in ROS Statement are negative. Past Medical History Past Medical History: Atrial Fibrillation, Chest Pain / Angina, Heart Failure, COPD, Hypertension, Liver Disease, Myocardial Infarction (NV), Respiratory Disorder, Syncope Additional Past Medical History / Comment(s): Home oxygen use@2-3L PRN COPD - says has oxygen at home but doesn't wear it, NV- patient reports having 3-4 NV's, + CABG -triple bypass scar, + AICD/PCCM "I have a machine inside that sends all the info to my heart doctor" , Abdominal Hernia surgery x2, paracentesis as needed- last times was at [facility] about 4 months ago per patient Last Myocardial Infarction Date:: 1992 History of Any Multi-Drug Resistant Organisms: None Reported Past Surgical History: AICD, Cholecystectomy, Coronary Bypass/CABG, Heart Catheterization With Stent, Hernia Repair, Pacemaker Additional Past Surgical History / Comment(s): CABG, AICD/Pacemaker placed about 10 years ago per patient 07/19/24, Hernia repair abdominal x2 Past Anesthesia/Blood Transfusion Reactions: No Reported Reaction Date of Last Stent Placement:: 1992 Type of Cardiac Device: Permanent Pacemaker, AICD Device Placement Date:: 1992 Past Psychological History: Anxiety Smoking Status: Current every day smoker Past Alcohol Use History: Occasional Past Drug Use History: Marijuana - Past Family History Mother Family Medical History: Cancer Father Family Medical History: Cancer General Exam Limitations: no limitations General appearance: alert, in no apparent distress Head exam: Present: atraumatic, normocephalic, normal inspection Eye exam: Present: normal appearance, PERRL, EOMI. Absent: scleral icterus, conjunctival injection, periorbital swelling ENT exam: Present: normal exam, mucous membranes moist Neck exam: Present: normal inspection. Absent: tenderness, meningismus, lymphadenopathy Respiratory exam: Present: normal lung sounds bilaterally. Absent: respiratory distress, wheezes, rales, rhonchi, stridor, accessory muscle use Cardiovascular Exam: Present: regular rate, normal rhythm, normal heart sounds. Absent: systolic murmur, diastolic murmur, rubs, gallop, clicks GI/Abdominal exam: Present: soft, distended, normal bowel sounds, hernia (Ventral reproducible hernia present, no tenderness, patient reports this has been present a long time). Absent: tenderness, guarding, rebound, rigid Extremities exam: Present: full ROM, normal capillary refill, pedal edema (2+ pitting edema bilaterally). Absent: normal inspection, tenderness, joint swelling, calf tenderness Neurological exam: Present: alert, oriented X3 Psychiatric exam: Present: normal affect, normal mood Skin exam: Present: warm, dry, intact, normal color, rash (Decubitus ulceration present anterior aspect of left lower leg) Course Vital Signs 12/19/24 12/19/24 10:00 13:37 Temperature 98.3 F Pulse Rate 80 75 Respiratory 20 16 Rate Blood Pressure 124/73 137/76 O2 Sat by Pulse 94 L 100 Oximetry Medical Decision Making - Medical Decision Making Was pt. sent in by a medical professional or institution (AURY Barrera, [employer], urgent care, hospital, or skilled nursing...) When possible be specific @ -No Did you speak to anyone other than the patient for history (EMS, parent, family, police, friend...)? What history was obtained from this source @ -No Did you review nursing and triage notes (agree or disagree)? Why? @ -I reviewed and agree with nursing and triage notes Were old charts reviewed (outside hosp., previous admission, EMS record, old EKG, old radiological studies, urgent care reports/EKG's, skilled nursing records)? Report findings @ -No old charts were reviewed Differential Diagnosis (chest pain, altered mental status, abdominal pain women, abdominal pain men, vaginal bleeding, weakness, fever, dyspnea, syncope, headache, dizziness, GI bleed, back pain, seizure, CVA, palpatations, mental health, musculoskeletal)? @ -Differential Dyspnea: CHF exacerbation, coronary syndrome, arrhythmia, tamponade, asthma, COPD, pulmonary embolism, pneumonia, pneumothorax, pulmonary effusion, anaphylaxis, diabetic ketoacidosis, flailed chest, pulmonary contusion, diaphragmatic rupture, anemia, neuromuscular, this is not meant to be an all-inclusive list. EKG interpreted by me (3pts min.). @ -As above X-rays interpreted by me (1pt min.). @ -Chest x-ray reveals cardiomegaly and mild pulmonary vascular congestion CT interpreted by me (1pt min.). @ -None done U/S interpreted by me (1pt. min.). @ -None done What testing was considered but not performed or refused? (CT, X-rays, U/S, labs)? Why? @ -None What meds were considered but not given or refused? Why? @ -None Did you discuss the management of the patient with other professionals (professionals i.e. , PA, [employer], lab, RT, psych nurse, social science professor, observation nurse, teacher, navy airspace officer, binder caser)? Give summary @ -I spoke with Dr. Johns who accepts admission for CHF exacerbation Was smoking cessation discussed for >3mins.? @ -No Was critical care preformed (if so, how long)? @ -No Were there social determinants of health that impacted care today? How? (Homelessness, low income, unemployed, alcoholism, drug addiction, transportation, low edu. Level, literacy, decrease access to med. care, usp, rehab)? @ -No Was there de-escalation of care discussed even if they declined (Discuss DNR or withdrawal of care, Hospice)? DNR status @ -No What co-morbidities impacted this encounter? (DM, HTN, Smoking, COPD, CAD, Cancer, CVA, ARF, Chemo, Hep., AIDS, mental health diagnosis, sleep apnea, morbid obesity)? @ -Congestive heart failure Was patient admitted / discharged? Hospital course, mention meds given and route, prescriptions, significant lab abnormalities, going to OR and other pertinent info. @ -Admitted. 59-year-old male with history of CHF presenting for shortness of breath. Is afebrile satting 94% on room air. No sign of respiratory distress. Denies chest pain. Physical examination remarkable for abdominal distention and 3+ pitting edema bilaterally. Lab work remarkable for BNP 110, one 0.037, hemoglobin 7.7 INR 1.3, sodium 130, chloride 86, CO2 37, magnesium 1.4. Chest x-ray reveals cardiomegaly and mild pulmonary vascular congestion. Patient will be admitted to medicine for CHF exacerbation. Patient was given magnesium replacement and started on IV Lasix. Case was discussed with ED attending Dr. Campbell. Undiagnosed new problem with uncertain prognosis? @ -No Drug Therapy requiring intensive monitoring for toxicity (Heparin, Nitro, Insulin, Cardizem)? @ -No Were any procedures done? @ -No Diagnosis/symptom? @ -Congestive heart failure exacerbation Acute, or Chronic, or Acute on Chronic? @ -Acute Uncomplicated (without systemic symptoms) or Complicated (systemic symptoms)? @ -Uncomplicated Side effects of treatment? @ -No Exacerbation, Progression, or Severe Exacerbation? @ -No Poses a threat to life or bodily function? How? (Chest pain, USA, NV, pneumonia, PE, COPD, DKA, ARF, appy, cholecystitis, CVA, Diverticulitis, Homicidal, Suicidal, threat to staff... and all critical care pts) @ -No - Lab Data Result diagrams: 12/19/24 10:54 12/19/24 10:54 Lab Results 12/19/24 12/19/24 12/19/24 Range/Units 10:54 10:54 10:54 WBC 8.4 (3.8-10.6) k/uL RBC 3.35 L (4.30-5.90) m/uL Hgb 7.7 L (13.0-17.5) gm/dL Hct 26.0 L (39.0-53.0) % MCV 77.5 L (80.0-100.0) fL MCH 22.9 L (25.0-35.0) pg MCHC 29.6 L (31.0-37.0) g/dL RDW 19.3 H (11.5-15.5) % Plt Count 150 (150-450) k/uL MPV 7.9 Neutrophils % 83 % Lymphocytes % 7 % Monocytes % 6 % Eosinophils % 0 % Basophils % 0 % Neutrophils # 7.0 (1.3-7.7) k/uL Lymphocytes # 0.5 L (1.0-4.8) k/uL Monocytes # 0.5 (0-1.0) k/uL Eosinophils # 0.0 (0-0.7) k/uL Basophils # 0.0 (0-0.2) k/uL Hypochromasia Marked Poikilocytosis Slight Anisocytosis Slight Microcytosis Slight PT 13.9 H (10.0-12.5) sec INR 1.3 H (<1.2) APTT 26.6 (22.0-30.0) sec Sodium 130 L (137-145) mmol/L Potassium 3.8 (3.5-5.1) mmol/L Chloride 86 L (98-107) mmol/L Carbon Dioxide 37 H (22-30) mmol/L Anion Gap 7 mmol/L BUN 17 (9-20) mg/dL Creatinine 0.75 (0.66-1.25) mg/dL Est GFR (CKD-EPI)AfAm >90 (>60 ml/min/1.73 sqM) Est GFR (CKD-EPI)NonAf >90 (>60 ml/min/1.73 sqM) Glucose 94 (74-99) mg/dL Plasma Lactic Acid Tay (0.7-2.0) mmol/L Calcium 8.5 (8.4-10.2) mg/dL Magnesium 1.4 L (1.6-2.3) mg/dL Total Bilirubin 1.5 H (0.2-1.3) mg/dL AST 38 (17-59) U/L ALT 18 (4-49) U/L Alkaline Phosphatase 132 H (38-126) U/L Troponin I (0.000-0.034) ng/mL NT-Pro-B Natriuret Pep 2110 pg/mL Total Protein 5.9 L (6.3-8.2) g/dL Albumin 3.0 L (3.5-5.0) g/dL Lipase 99 (23-300) U/L Influenza Type A (PCR) (Not Detectd) Influenza Type B (PCR) (Not Detectd) RSV (PCR) (Not Detectd) SARS-CoV-2 (PCR) (Not Detectd) 12/19/24 12/19/24 12/19/24 Range/Units 10:54 10:54 10:58 WBC (3.8-10.6) k/uL RBC (4.30-5.90) m/uL Hgb (13.0-17.5) gm/dL Hct (39.0-53.0) % MCV (80.0-100.0) fL MCH (25.0-35.0) pg MCHC (31.0-37.0) g/dL RDW (11.5-15.5) % Plt Count (150-450) k/uL MPV Neutrophils % % Lymphocytes % % Monocytes % % Eosinophils % % Basophils % % Neutrophils # (1.3-7.7) k/uL Lymphocytes # (1.0-4.8) k/uL Monocytes # (0-1.0) k/uL Eosinophils # (0-0.7) k/uL Basophils # (0-0.2) k/uL Hypochromasia Poikilocytosis Anisocytosis Microcytosis PT (10.0-12.5) sec INR (<1.2) APTT (22.0-30.0) sec Sodium (137-145) mmol/L Potassium (3.5-5.1) mmol/L Chloride (98-107) mmol/L Carbon Dioxide (22-30) mmol/L Anion Gap mmol/L BUN (9-20) mg/dL Creatinine (0.66-1.25) mg/dL Est GFR (CKD-EPI)AfAm (>60 ml/min/1.73 sqM) Est GFR (CKD-EPI)NonAf (>60 ml/min/1.73 sqM) Glucose (74-99) mg/dL Plasma Lactic Acid Tay 1.5 (0.7-2.0) mmol/L Calcium (8.4-10.2) mg/dL Magnesium (1.6-2.3) mg/dL Total Bilirubin (0.2-1.3) mg/dL AST (17-59) U/L ALT (4-49) U/L Alkaline Phosphatase (38-126) U/L Troponin I 0.037 H* (0.000-0.034) ng/mL NT-Pro-B Natriuret Pep pg/mL Total Protein (6.3-8.2) g/dL Albumin (3.5-5.0) g/dL Lipase (23-300) U/L Influenza Type A (PCR) Not Detected (Not Detectd) Influenza Type B (PCR) Not Detected (Not Detectd) RSV (PCR) Not Detected (Not Detectd) SARS-CoV-2 (PCR) Not Detected (Not Detectd) - EKG Data -: EKG Interpreted by Me EKG Comments: EKG reveals atrial fibrillation with narrow QRS voltage. Ventricular rate 78 bpm, MI interval not calculated, QRS duration 114, QT/QTc 402/435 Disposition Clinical Impression: Acute exacerbation of CHF (congestive heart failure) Disposition: ADMITTED IP TO THIS [facility] Time of Disposition: 14:33
[2024-12-19 11:19] LABS: Anisocytosis Slight; Basophils % (A) 0 %; Eosinophils % (A) 0 %; HGB 7.7 gm/dL (13.0-17.5); Hypochromasia Marked; Lymphocytes # (A) 0.5 k/uL (1.0-4.8); Lymphocytes % (A) 7 %; MCH 22.9 pg (25.0-35.0); MCHC 29.6 g/dL (31.0-37.0); MCV 77.5 fL (80.0-100.0); Mean Platelet Volume 7.9; Microcytosis Slight; Monocytes # (A) 0.5 k/uL (0-1.0); Monocytes % (A) 6 %; Neutrophils % (A) 83 %; Platelet Count 150 k/uL (150-450); Poikilocytosis Slight; RBC 3.35 m/uL (4.30-5.90); RDW 19.3 % (11.5-15.5); WBC 8.4 k/uL (3.8-10.6)
[2024-12-19 11:33] LABS: ALT 18 U/L (4-49); AST 38 U/L (17-59); African American GFR (CKD) >90 (>60 ml/min/1.73 sqM); Alkaline Phosphatase 132 U/L (38-126); Blood Urea Nitrogen 17 mg/dL (9-20); Calcium 8.5 mg/dL (8.4-10.2); Chloride 86 mmol/L (98-107); Glucose 94 mg/dL (74-99); Lipase 99 U/L (23-300); Magnesium 1.4 mg/dL (1.6-2.3); Non-African American GFR(CKD) >90 (>60 ml/min/1.73 sqM); Potassium 3.8 mmol/L (3.5-5.1); Sodium 130 mmol/L (137-145); Total Bilirubin 1.5 mg/dL (0.2-1.3); Total Protein 5.9 g/dL (6.3-8.2)
[2024-12-19 11:36] LABS: INR 1.3 (<1.2)
[2024-12-19 11:37] LABS: Partial Thromboplastin Time 26.6 sec (22.0-30.0); Prothrombin Time 13.9 sec (10.0-12.5)
[2024-12-19 11:39] LABS: NT-Pro-B-Type Natriuretic Pept 2110 pg/mL
[2024-12-19 11:40] LABS: Anion Gap 7 mmol/L
--- NOTE | 2024-12-19 11:46 | XR ---
EXAMINATION TYPE: XR chest 2V DATE OF EXAM: 12/19/2024 11:26 AM COMPARISON: Chest radiographs from 10/05/2024 CLINICAL INDICATION: Male, 59 years old with history of shortness of breath; TECHNIQUE: XR chest 2V Frontal and lateral views of the chest. FINDINGS: Lungs/Pleura: There is no evidence of pleural effusion, focal consolidation, or pneumothorax. Pulmonary vascularity: Pulmonary vascular congestion. Heart/mediastinum: Cardiac size is normal. Atherosclerotic calcifications are seen in the aorta. Two lead cardiac conduction device overlying the left hemithorax with lead tips projecting over the righ t ventricle and right atrium. Musculoskeletal: No acute osseous pathology. Midline sternotomy wires are noted. Other findings: Retained metallic densities project over the right shoulder. IMPRESSION: Cardiomegaly and mild pulmonary vascular congestion. Correlate with BNP for congestive heart failure. [facility], , 12/19/2024 11:44 AM
[2024-12-19 11:56] LABS: Influenza A Not Detected (Not Detectd); Influenza B Not Detected (Not Detectd); RSV Not Detected (Not Detectd)
[2024-12-19 12:12] LABS: Carbon Dioxide 37 mmol/L (22-30)
[2024-12-19] MEDS ORDERED: ONDANSETRON 4 MG/2 ML VIAL IVP PRN (14:28)
[2024-12-19] MEDS ORDERED: NALOXONE 0.4 MG/ML 1 ML VIAL IV PRN ×2 (14:28→14:33)
[2024-12-19] MEDS: FUROSEMIDE 10 MG/ML 4 ML VIAL IV STA (15:11)
[2024-12-19] MEDS: MAGNESIUM SULFATE-D5W PMX 1 GM in DEXTROSE/WATER 1 100ML.BAG IVPB SCH (15:11)
--- NOTE | 2024-12-19 17:40 | XR ---
EXAMINATION TYPE: XR tibia fibula LT DATE OF EXAM: 12/19/2024 5:36 PM INDICATION: Patient age:Male; 59 years old; Reason for study: pain; PHH. pain COMPARISON: Left ankle radiograph 10/05/2024 TECHNIQUE: The left tibia/fibula was examined in AP and lateral projections. FINDINGS: No evidence of any acute osseous pathology, joint dislocation, or soft tissue swelling is n oted. No osseous erosions. Ankle mortise is intact. No radiopaque foreign body. Vascular calcificatio ns. No soft tissue gas. IMPRESSION: No evidence of acute fracture. [facility], , 12/19/2024 5:38 PM
--- NOTE | 2024-12-19 17:40 | P.HPIM ---
History of Present Illness H&P Date: 12/19/24 Chief Complaint: shortness of breath This is a 59-year-old male with past medical history of CHF with EF of 2025%, COPD on 2 L nasal cannula at baseline, hypertension, liver cirrhosis likely secondary to alcohol abuse presents emergency department with complaints of shortness of breath. [facility]. He states that he was trying to get to his primary care doctor and that they were not taking care of him correctly. He states that he was not pleased with how routine care of his left lower extremity wound either. Has b een having progressive shortness of breath over the past several days. Patient was scheduled to have a paracentesis secondary to his liver cirrhosis tomorrow. States that he is having abdominal tenderness but no fevers or chills nausea. Review of Systems ROS negative except pertinent positives noted in HPI Past Medical History Past Medical History: Atrial Fibrillation, Chest Pain / Angina, Heart Failure, COPD, Hypertension, Liver Disease, Myocardial Infarction (CA), Respiratory Disorder, Syncope Additional Past Medical History / Comment(s): Home oxygen use@2-3L PRN COPD - says has oxygen at home but doesn't wear it, CA- patient reports having 3-4 CA's, + CABG -triple bypass scar, + AICD/PCCM "I have a machine inside that sends all the info to my heart doctor" , Abdominal Hernia surgery x2, par acentesis as needed- last times was at [facility] about 4 months ago per patient Last Myocardial Infarction Date:: 1992 History of Any Multi-Drug Resistant Organisms: None Reported Past Surgical History: AICD, Cholecystectomy, Coronary Bypass/CABG, Heart Catheterization With Stent, Hernia Repair, Pacemaker Additional Past Surgical History / Comment(s): CABG, AICD/Pacemaker placed about 10 years ago per patient 07/19/24, Hernia repair abdominal x2 Past Anesthesia/Blood Transfusion Reactions: No Reported Reaction Date of Last Stent Placement:: 1992 Type of Cardiac Device: Permanent Pacemaker, AICD Device Placement Date:: 1992 Past Psychological History: Anxiety Smoking Status: Current every day smoker Past Alcohol Use History: Occasional Past Drug Use History: Marijuana - Past Family History Mother Family Medical History: Cancer Father Family Medical History: Cancer Medications and Allergies Home Medications Medication Instructions Recorded Confirmed Type Apixaban [Eliquis] 5 mg PO BID #60 tab 07/25/24 12/19/24 Rx Metoprolol Tartrate [Lopressor] 25 mg PO BID #60 tab 07/25/24 12/19/24 Rx Potassium Chloride [K-Tab ER] 20 meq PO DAILY #30 tab 08/01/24 12/19/24 Rx Empagliflozin [Jardiance] 10 mg PO DAILY 09/30/24 12/19/24 History Ergocalciferol [Vitamin D2 (1250 1,250 mcg PO CELESTE 10/06/24 12/19/24 History Mcg = 63573 Iu)] Atorvastatin [Lipitor] 40 mg PO HS 12/19/24 12/19/24 History Budesonide [Pulmicort] 0.5 mg INHALATION RT-BID@08,20 12/19/24 12/19/24 History Furosemide [Lasix] 40 mg PO BID@0600,1600 12/19/24 12/19/24 History HYDROcodone/APAP 5-325MG [[place] 1 tab PO Q6H PRN 12/19/24 12/19/24 History 5-325] Ipratropium-Albuterol Nebulize 3 ml INHALATION RT-QID@06,11,17,23 12/19/24 12/19/24 History [Duoneb 0.5 mg-3 mg/3 ml Soln] Lactulose 20 gm PO BID 12/19/24 12/19/24 History Magnesium Oxide [Magox 400] 400 mg PO DAILY 12/19/24 12/19/24 History Melatonin 5 mg PO HS 12/19/24 12/19/24 History Miconazole Nitrate 2% Powder 1 applic TOPICAL BID 12/19/24 12/19/24 History Naloxone HCl [Narcan] 4 mg NASAL ONCE PRN 12/19/24 12/19/24 History Sodium Chloride [[place]] 1 spray EA NOSTRIL Q1H PRN 12/19/24 12/19/24 History Spironolactone 50 mg PO DAILY 12/19/24 12/19/24 History Allergies Allergy/AdvReac Type Severity Reaction Status Date / Time chloroxine [From Capitrol] AdvReac Rash/Hives Verified 12/19/24 13:33 Physical Exam Vitals: Vital Signs Temp Pulse Resp BP Pulse Ox 12/19/24 13:37 75 16 137/76 100 03/04/25 10:00 98.3 F 80 20 124/73 94 L Intake and Output 12/19/24 12/19/24 12/19/24 06:59 14:59 22:59 Output Total 1800 Balance -1800 Output: Urine 1800 Other: Weight 80.739 kg - Constitutional General appearance: mild distress - EENT Eyes: PERRLA - Respiratory Respiratory: bilateral: diminished, dullness, rales - Cardiovascular Rhythm: regular Heart sounds: normal: S1, S2 - Gastrointestinal General gastrointestinal: decreased bowel sounds Localized gastrointestinal: tender: diffuse, guarding: diffuse - Integumentary Integumentary: normal - Psychiatric Psychiatric: A&O x's 3, appropriate affect, intact judgment & insight Results CBC & Chem 7: 12/19/24 10:54 12/19/24 10:54 Labs: Abnormal Lab Results - Last 24 Hours (Table) 12/19/24 12/19/24 12/19/24 Range/Units 10:54 10:54 10:54 RBC 3.35 L (4.30-5.90) m/uL Hgb 7.7 L (13.0-17.5) gm/dL Hct 26.0 L (39.0-53.0) % MCV 77.5 L (80.0-100.0) fL MCH 22.9 L (25.0-35.0) pg MCHC 29.6 L (31.0-37.0) g/dL RDW 19.3 H (11.5-15.5) % Lymphocytes # 0.5 L (1.0-4.8) k/uL PT 13.9 H (10.0-12.5) sec INR 1.3 H (<1.2) Sodium 130 L (137-145) mmol/L Chloride 86 L (98-107) mmol/L Carbon Dioxide 37 H (22-30) mmol/L Magnesium 1.4 L (1.6-2.3) mg/dL Total Bilirubin 1.5 H (0.2-1.3) mg/dL Alkaline Phosphatase 132 H (38-126) U/L Troponin I (0.000-0.034) ng/mL Total Protein 5.9 L (6.3-8.2) g/dL Albumin 3.0 L (3.5-5.0) g/dL 12/19/24 Range/Units 10:54 RBC (4.30-5.90) m/uL Hgb (13.0-17.5) gm/dL Hct (39.0-53.0) % MCV (80.0-100.0) fL MCH (25.0-35.0) pg MCHC (31.0-37.0) g/dL RDW (11.5-15.5) % Lymphocytes # (1.0-4.8) k/uL PT (10.0-12.5) sec INR (<1.2) Sodium (137-145) mmol/L Chloride (98-107) mmol/L Carbon Dioxide (22-30) mmol/L Magnesium (1.6-2.3) mg/dL Total Bilirubin (0.2-1.3) mg/dL Alkaline Phosphatase (38-126) U/L Troponin I 0.037 H* (0.000-0.034) ng/mL Total Protein (6.3-8.2) g/dL Albumin (3.5-5.0) g/dL Assessment and Plan Assessment: Acute systolic heart failure exacerbation Acute on chronic hypoxic respiratory failure requiring increasing oxygen supplementation support Decompensated liver cirrhosis, distended abdomen, requiring paracentesis Essential hypertension NSTEMI likely type II demand ischemia from CHF exacerbation Left lower extremity wound Microcytic anemia, possibly RUBINA Consult placed to interventional radiology for paracentesis Consulted cardiology for input on management of heart failure exacerbation will continue lasix 40 mg twice daily monitor i's and o's cardiac diet 2 g salt restriction with 1500 cc fluid restrictions Will obtain x-ray of the left lower extremity to look for any fractures were deeper than infections in the bone Consulted wound care Will hold off on antibiotics at this time DVT prophylaxis with subcu heparin were appropriate Will restart home medications where appropriate
[2024-12-19] MEDS: HYDROcodone/APAP 5-325MG 1 EACH TAB PO PRN (18:05)
[2024-12-19] MEDS: ATORVASTATIN 40 MG TAB PO SCH (20:11)
[2024-12-19] MEDS: APIXABAN 5 MG TAB PO SCH (20:11)
[2024-12-19] MEDS: MELATONIN 5 MG TABLET PO SCH (20:12)
[2024-12-19] MEDS: METOPROLOL TARTRATE 25 MG TAB PO SCH (20:12)
[2024-12-19] MEDS: LACTULOSE 20 GM/30 ML CUP PO SCH (20:13)
[2024-12-19] MEDS: IPRATROPIUM-ALBUTEROL 3 ML NEB INHALATION SCH (20:23)
[2024-12-19] MEDS: BUDESONIDE 0.5 MG/2 ML NEBU INHALATION SCH (20:23)
[2024-12-19] MEDS ORDERED: IPRATROPIUM-ALBUTEROL 3 ML NEB INHALATION SCH (23:00)
[2024-12-20] MEDS: FUROSEMIDE 40 MG TAB PO SCH (05:19)
[2024-12-20] MEDS: MAGNESIUM OXIDE 400 MG TAB PO SCH (08:52)
[2024-12-20] MEDS: SACUBITRIL/VALSARTAN 24 MG-26 MG TABLET PO SCH (09:21)
[2024-12-20] MEDS: SPIRONOLACTONE 25 MG TAB PO SCH (09:21)
[2024-12-20] MEDS: DAPAGLIFLOZIN PROPANEDIOL 10 MG TABLET PO SCH (09:21)
--- NOTE | 2024-12-20 10:32 | P.CONS ---
History of Present Illness - Reason for Consult Consult date: 12/20/24 wound care - History of Present Illness This is a 67-year-old gentleman being seen in the ER for a nonhealing ulceration to the left anterior lower extremity. Patient has history of CHF with a EF of 20 to 25% COPD hypertension and liver cirrhosis more than likely related to EtOH abuse. Patient states that the ulceration started approximately 3 weeks ago he does not know how they started. The superior ulceration to the left lower extremity appears to be a skin tag measuring approximately 0.5 x 1.5 x 0.1 cm slough and nonviable tissue present. Minimal granulation seen wound edges are not attached to the wound base distally to the ulceration. The second ulceration is distal to the first measuring approximately 0.5 x 0.5 x 0.1 cm with slough and nonviable tissue present minimal granulation noted wound edges are attached to the wound base no tunneling or undermining noted. Review Of Systems: Constitutional: No fever, no chills, no night sweats. No weight change. No weakness, fatigue or lethargy. No daytime sleepiness. Integumentary:reports wounds, no lesions. No rash or pruritus. No unusual bruising. No change in hair or nails. Physical exam: General Appearance: Alert, cooperative, no distress, appears stated age. Skin: See HPI all other Skin color, texture, tugor normal, no rashes or lesions. Neurologic: Alert oriented x3 Assessment: 1. Nonhealing ulceration with fat layer exposure left lower extremity 2. Chronic venous hypertension with insufficiency with ulceration of left lower extremity Plan: 1. Apply honey gel bordered foam and Jar[place]o wrap for compression. Elevate legs above heart 3 times a day for 30 minutes. Patient would benefit for advanced wound care and wound care setting. Would be happy to see him upon discharge. Thank you for the consultation any questions please contact the wound care center DNP note has been reviewed and discussed with Dr. Webb and the impression and plan of care has been directed as dictated. Past Medical History Past Medical History: Atrial Fibrillation, Chest Pain / Angina, Heart Failure, COPD, Hypertension, Liver Disease, Myocardial Infarction ([place]), Respiratory Disorder, Syncope Additional Past Medical History / Comment(s): Home oxygen use@2-3L PRN COPD - says has oxygen at home but doesn't wear it, IN- patient reports having 3-4 IN's, + CABG -triple bypass scar, + AICD/PCCM "I have a machine inside that sends all the info to my heart doctor" , Abdominal Hernia surgery x2, paracentesis as needed- last times was at [facility] about 4 months ago per patient Last Myocardial Infarction Date:: 1992 History of Any Multi-Drug Resistant Organisms: None Reported Past Surgical History: AICD, Cholecystectomy, Coronary Bypass/CABG, Heart Catheterization With Stent, Hernia Repair, Pacemaker Additional Past Surgical History / Comment(s): CABG, AICD/Pacemaker placed about 10 years ago per patient 07/19/24, Hernia repair abdominal x2 Past Anesthesia/Blood Transfusion Reactions: No Reported Reaction Date of Last Stent Placement:: 1992 Type of Cardiac Device: Permanent Pacemaker, AICD Device Placement Date:: 1992 Past Psychological History: Anxiety Smoking Status: Current every day smoker Past Alcohol Use History: Occasional Past Drug Use History: Marijuana - Past Family History Mother Family Medical History: Cancer Father Family Medical History: Cancer Medications and Allergies Home Medications Medication Instructions Recorded Confirmed Type Apixaban [Eliquis] 5 mg PO BID #60 tab 07/25/24 12/19/24 Rx Metoprolol Tartrate [Lopressor] 25 mg PO BID #60 tab 07/25/24 12/19/24 Rx Potassium Chloride [K-Tab ER] 20 meq PO DAILY #30 tab 08/01/24 12/19/24 Rx Empagliflozin [Jardiance] 10 mg PO DAILY 09/30/24 12/19/24 History Ergocalciferol [Vitamin D2 (1250 1,250 mcg PO CELESTE 10/06/24 12/19/24 History Mcg = 72179 Iu)] Atorvastatin [Lipitor] 40 mg PO HS 12/19/24 12/19/24 History Budesonide [Pulmicort] 0.5 mg INHALATION RT-BID@08,20 12/19/24 12/19/24 History Furosemide [Lasix] 40 mg PO BID@0600,1600 12/19/24 12/19/24 History HYDROcodone/APAP 5-325MG [[place] 1 tab PO Q6H PRN 12/19/24 12/19/24 History 5-325] Ipratropium-Albuterol Nebulize 3 ml INHALATION RT-QID@06,11,17,23 12/19/24 0 12/19/24 History [Duoneb 0.5 mg-3 mg/3 ml Soln] Lactulose 20 gm PO BID 12/19/24 12/19/24 History Magnesium Oxide [Magox 400] 400 mg PO DAILY 12/19/24 12/19/24 History Melatonin 5 mg PO HS 12/19/24 12/19/24 History Miconazole Nitrate 2% Powder 1 applic TOPICAL BID 12/19/24 12/19/24 History Naloxone HCl [Narcan] 4 mg NASAL ONCE PRN 12/19/24 12/19/24 History Sodium Chloride [[place]] 1 spray EA NOSTRIL Q1H PRN 12/19/24 12/19/24 History Spironolactone 50 mg PO DAILY 12/19/24 12/19/24 History Allergies Allergy/AdvReac Type Severity Reaction Status Date / Time chloroxine [From Capitrol] AdvReac Rash/Hives Verified 12/19/24 13:33 Physical Exam Vitals: Vital Signs Temp Pulse Pulse Resp BP BP Pulse Ox 12/20/24 09:24 67 18 105/78 98 12/20/24 08:35 71 12/20/24 08:19 72 12/20/24 08:00 99 12/20/24 07:21 98.2 F 68 18 108/60 100 12/20/24 04:04 72 20 95/59 99 12/20/24 00:07 73 22 88/46 96 12/19/24 20:32 76 18 12/19/24 20:24 79 18 12/19/24 19:56 76 16 117/66 100 12/19/24 13:37 75 16 137/76 100 Intake and Output 12/19/24 12/20/24 12/20/24 22:59 06:59 14:59 Intake Total 437 Output Total 2400 400 500 Balance -2400 -400 -63 Intake: Oral 437 Output: Urine 2400 400 500 Other: Voiding Method Urinal Results CBC & Chem 7: 12/19/24 10:54 12/19/24 10:54 Labs: Abnormal Lab Results - Last 24 Hours (Table) 12/19/24 12/19/24 12/19/24 Range/Units 10:54 10:54 10:54 RBC 3.35 L (4.30-5.90) m/uL Hgb 7.7 L (13.0-17.5) gm/dL Hct 26.0 L (39.0-53.0) % MCV 77.5 L (80.0-100.0) fL MCH 22.9 L (25.0-35.0) pg MCHC 29.6 L (31.0-37.0) g/dL RDW 19.3 H (11.5-15.5) % Lymphocytes # 0.5 L (1.0-4.8) k/uL PT 13.9 H (10.0-12.5) sec INR 1.3 H (<1.2) Sodium 130 L (137-145) mmol/L Chloride 86 L (98-107) mmol/L Carbon Dioxide 37 H (22-30) mmol/L Magnesium 1.4 L (1.6-2.3) mg/dL Total Bilirubin 1.5 H (0.2-1.3) mg/dL Alkaline Phosphatase 132 H (38-126) U/L Troponin I (0.000-0.034) ng/mL Total Protein 5.9 L (6.3-8.2) g/dL Albumin 3.0 L (3.5-5.0) g/dL 12/19/24 Range/Units 10:54 RBC (4.30-5.90) m/uL Hgb (13.0-17.5) gm/dL Hct (39.0-53.0) % MCV (80.0-100.0) fL MCH (25.0-35.0) pg MCHC (31.0-37.0) g/dL RDW (11.5-15.5) % Lymphocytes # (1.0-4.8) k/uL PT (10.0-12.5) sec INR (<1.2) Sodium (137-145) mmol/L Chloride (98-107) mmol/L Carbon Dioxide (22-30) mmol/L Magnesium (1.6-2.3) mg/dL Total Bilirubin (0.2-1.3) mg/dL Alkaline Phosphatase (38-126) U/L Troponin I 0.037 H* (0.000-0.034) ng/mL Total Protein (6.3-8.2) g/dL Albumin (3.5-5.0) g/dL Assessment and Plan (1) Non-pressure chronic ulcer of other part of left lower leg with fat layer exposed Current Visit: Yes Status: Acute Code(s): L97.822 - NON-PRS CHRONIC ULCER OTH PRT L LOW LEG W FAT LAYER EXPOSED SNOMED Code(s): 97096377518374468 (2) Chronic venous hypertension w/ulcer and inflammation involv left side Current Visit: Yes Status: Acute Code(s): I87.332 - CHRONIC VENOUS HTN W ULCER AND INFLAMMATION OF L LOW EXTREM SNOMED Code(s): 437922544
[2024-12-20] MEDS: SODIUM FERRIC GLUCONAT-SUCROSE 125 MG in SODIUM CHLORIDE 0.9% 100 ML IVPB SCH (10:46)
[2024-12-20 10:48] LABS: Anisocytosis Slight; Basophils % (A) 0 %; Eosinophils # (A) 0.1 k/uL (0-0.7); Eosinophils % (A) 1 %; HCT 24.2 % (39.0-53.0); HGB 7.1 gm/dL (13.0-17.5); Hypochromasia Marked; Lymphocytes # (A) 0.6 k/uL (1.0-4.8); Lymphocytes % (A) 9 %; MCHC 29.2 g/dL (31.0-37.0); MCV 78.7 fL (80.0-100.0); Mean Platelet Volume 8.4; Microcytosis Slight; Monocytes # (A) 0.4 k/uL (0-1.0); Monocytes % (A) 6 %; Neutrophils # (A) 4.7 k/uL (1.3-7.7); Neutrophils % (A) 80 %; Platelet Count 155 k/uL (150-450); Poikilocytosis Slight; RBC 3.07 m/uL (4.30-5.90); RDW 19.3 % (11.5-15.5); WBC 5.9 k/uL (3.8-10.6)
[2024-12-20 10:52] LABS: African American GFR (CKD) >90 (>60 ml/min/1.73 sqM); Anion Gap 3 mmol/L; Blood Urea Nitrogen 19 mg/dL (9-20); Calcium 8.2 mg/dL (8.4-10.2); Carbon Dioxide 37 mmol/L (22-30); Chloride 88 mmol/L (98-107); Glucose 101 mg/dL (74-99); Magnesium 1.6 mg/dL (1.6-2.3); Non-African American GFR(CKD) >90 (>60 ml/min/1.73 sqM); Phosphorus 3.8 mg/dL (2.5-4.5); Potassium 3.5 mmol/L (3.5-5.1); Sodium 128 mmol/L (137-145)
--- NOTE | 2024-12-20 11:03 | US ---
EXAMINATION TYPE: US abdomen limited DATE OF EXAM: 12/20/2024 COMPARISON: CLINICAL INDICATION: Male, 59 years old with history of ascites; Ascites TECHNIQUE: Grayscale imaging of the abdomen for ascites. FINDINGS: Scanned all four quadrants of the abdomen. Ascites seen in all four quadrants. Internal echoes seen within fluid. IMPRESSION: Moderate to large ascites [facility] Mary Olsen, , 12/20/2024 11:01 AM
--- NOTE | 2024-12-20 12:30 | P.CRDCN ---
History of Present Illness History of present illness: HISTORY OF PRESENT ILLNESS: This is a 59-year-old male with a past medical history significant for coronary artery disease with previous CABG, cardiomyopathy, AICD implantation, hypertens ion, hyperlipidemia, nicotine dependence and alcohol abuse with liver cirrhosis. 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 We have been asked to see the patient in consultation for congestive heart failure. Patient examined at the bedside in the emergency room. Patient presented to the hospital to chief complaint of shortness of breath. Patient denies chest pain or pressure. The patient reports he is a current cigarette smoker. He reports a history of alcohol abuse but states he quit drinking in July. Patient does report he also was prescribed home oxygen but he has not been using it lately as he states he felt like he did not need it. DIAGNOSTICS: - EKG reveals atrial fibrillation with T wave inversions in lateral leads - Chest xray cardiomegaly and mild pulmonary vascular congestion - Laboratory data: WBC 5.9. Hemoglobin 7.1. Platelet count 155. Sodium 128. Potassium 3.5. BUN 19. Creatinine 0.69. Troponin 0.037. 0.029. proBNP 2110. - Current home cardiac medications include metoprolol tartrate 25 mg twice a day, Lasix 40 mg twice a day, Aldactone 50 mg daily, Eliquis 5 mg twice a day, Jardiance 10 mg daily, atorvastatin 40 mg at night. - Most recent echocardiogram obtained in September 2024 revealed ejection fraction 25 to 30%, severe pulmonary hypertension, eccentric moderate mitral regurgitation, mild MR, mild TR - Cardiac catheterization history: Unknown REVIEW OF SYSTEMS: At the time of my exam: CONSTITUTIONAL: Denies fever or chills. HEENT: Denies blurred vision, vision changes, or eye pain. Denies hemoptysis CARDIOVASCULAR: Denies chest pain. Denies orthopnea. Denies PND. Denies palpitations RESPIRATORY: Denies shortness of breath. GASTROINTESTINAL: Denies abdominal pain. Denies nausea or vomiting. HEMATOLOGIC: Denies bleeding disorders. GENITOURINARY: Denies any blood in urine. SKIN: Denies pruitis. Denies rash. PHYSICAL EXAM: VITAL SIGNS: Reviewed. GENERAL: Well-developed in no acute distress. HEENT: Head is normocephalic. Pupils are equal, round. Sclerae anicteric. Mucous membranes of the mouth are moist. Neck supple. No JVD or thyromegaly LUNGS: Respirations even and unlabored. Lungs essentially clear to auscultation bilaterally. HEART: Regular rate and rhythm. S1 and S2 heard. ABDOMEN: Soft. Nondistended. Nontender. EXTREMITIES: Normal range of motion. No clubbing or cyanosis. Peripheral pulses intact. No lower extremity edema NEUROLOGIC: Awake and alert. Oriented x 3. ASSESSMENT: Shortness of breath Acute on chronic heart failure with reduced EF Minimally elevated troponin, likely type II AL secondary to oxygen supply/demand mismatch Hyponatremia Coronary artery disease with previous CABG Ischemic cardiomyopathy, EF 25 to 30% History of ICD implantation History of VT ablation History of paroxysmal atrial fibrillation, on Eliquis outpatient History of alcohol abuse with previous paracentesis PLAN: No need to repeat echocardiogram as this was performed in September 2024 Trend troponins Resume home cardiac medications including metoprolol, Lasix, Aldactone, Eliquis, Farxiga, and atorvastatin Begin Entresto 24-26 mg half a tablet twice a day IV iron supplementation x [address] Reddy Continue telemetry monitoring Continue to monitor blood pressure Further recommendations pending patient course Nurse practitioner note has been reviewed by physician. Signing provider agrees with the documented findings, assessment, and plan of care documented by GATE SERVICES SUPERVISOR as a scribe. Past Medical History Past Medical History: Atrial Fibrillation, Chest Pain / Angina, Heart Failure, COPD, Hypertension, Liver Disease, Myocardial Infarction ([place]), Respiratory Disorder, Syncope Additional Past Medical History / Comment(s): Home oxygen use@2-3L PRN COPD - says has oxygen at home but doesn't wear it, AL- patient reports having 3-4 AL's, + CABG -triple bypass scar, + AICD/PCCM "I have a machine inside that sends all the info to my heart doctor" , Abdominal Hernia surgery x2, paracentesis as needed- last times was at [facility] about 4 months ago per patient Last Myocardial Infarction Date:: 1992 History of Any Multi-Drug Resistant Organisms: None Reported Past Surgical History: AICD, Cholecystectomy, Coronary Bypass/CABG, Heart Catheterization With Stent, Hernia Repair, Pacemaker Additional Past Surgical History / Comment(s): CABG, AICD/Pacemaker placed about 10 years ago per patient 07/19/24, Hernia repair abdominal x2 Past Anesthesia/Blood Transfusion Reactions: No Reported Reaction Date of Last Stent Placement:: 1992 Type of Cardiac Device: Permanent Pacemaker, AICD Device Placement Date:: 1992 Past Psychological History: Anxiety Smoking Status: Current every day smoker Past Alcohol Use History: Occasional Past Drug Use History: Marijuana - Past Family History Mother Family Medical History: Cancer Father Family Medical History: Cancer Medications and Allergies Home Medications Medication Instructions Recorded Confirmed Type Apixaban [Eliquis] 5 mg PO BID #60 tab 07/25/24 12/19/24 Rx Metoprolol Tartrate [Lopressor] 25 mg PO BID #60 tab 07/25/24 12/19/24 Rx Potassium Chloride [K-Tab ER] 20 meq PO DAILY #30 tab 08/01/24 12/19/24 Rx Empagliflozin [Jardiance] 10 mg PO DAILY 09/30/24 12/19/24 History Ergocalciferol [Vitamin D2 (1250 1,250 mcg PO CELESTE 10/06/24 12/19/24 History Mcg = 25594 Iu)] Atorvastatin [Lipitor] 40 mg PO HS 12/19/24 12/19/24 History Budesonide [Pulmicort] 0.5 mg INHALATION RT-BID@08,20 12/19/24 12/19/24 History Furosemide [Lasix] 40 mg PO BID@0600,1600 12/19/24 12/19/24 History HYDROcodone/APAP 5-325MG [[place] 1 tab PO Q6H PRN 12/19/24 12/19/24 History 5-325] Ipratropium-Albuterol Nebulize 3 ml INHALATION RT-QID@06,11,17,23 12/19/24 12/19/24 History [Duoneb 0.5 mg-3 mg/3 ml Soln] Lactulose 20 gm PO BID 12/19/24 12/19/24 History Magnesium Oxide [Magox 400] 400 mg PO DAILY 12/19/24 12/19/24 History Melatonin 5 mg PO HS 12/19/24 12/19/24 History Miconazole Nitrate 2% Powder 1 applic TOPICAL BID 12/19/24 12/19/24 History Naloxone HCl [Narcan] 4 mg NASAL ONCE PRN 12/19/24 12/19/24 History Sodium Chloride [[place]] 1 spray EA NOSTRIL Q1H PRN 12/19/24 12/19/24 History Spironolactone 50 mg PO DAILY 12/19/24 12/19/24 History Allergies Allergy/AdvReac Type Severity Reaction Status Date / Time chloroxine [From Capitrol] AdvReac Rash/Hives Verified 12/19/24 13:33 Physical Exam Vitals: Vital Signs Temp Pulse Pulse Resp BP BP Pulse Ox 12/20/24 08:35 71 12/20/24 08:19 72 12/20/24 08:00 99 12/20/24 07:21 98.2 F 68 18 108/60 100 12/20/24 04:04 72 20 95/59 99 12/20/24 00:07 73 22 88/46 96 12/19/24 20:32 76 18 12/19/24 20:24 79 18 12/19/24 19:56 76 16 117/66 100 12/19/24 13:37 75 16 137/76 100 12/19/24 10:00 98.3 F 80 20 124/73 94 L Intake and Output 12/19/24 12/20/24 12/20/24 22:59 06:59 14:59 Output Total 2400 400 Balance -2400 -400 Output: Urine 2400 400 Other: Voiding Method Urinal Results 12/20/24 09:38 12/20/24 09:38 Cardiac Enzymes 12/19/24 12/19/24 Range/Units 10:54 10:54 AST 38 (17-59) U/L Troponin I 0.037 H* (0.000-0.034) ng/mL Coagulation 12/19/24 Range/Units 10:54 PT 13.9 H (10.0-12.5) sec APTT 26.6 (22.0-30.0) sec CBC 12/19/24 Range/Units 10:54 WBC 8.4 (3.8-10.6) k/uL RBC 3.35 L (4.30-5.90) m/uL Hgb 7.7 L (13.0-17.5) gm/dL Hct 26.0 L (39.0-53.0) % Plt Count 150 (150-450) k/uL Comprehensive Metabolic Panel 12/19/24 Range/Units 10:54 Sodium 130 L (137-145) mmol/L Potassium 3.8 (3.5-5.1) mmol/L Chloride 86 L (98-107) mmol/L Carbon Dioxide 37 H (22-30) mmol/L BUN 17 (9-20) mg/dL Creatinine 0.75 (0.66-1.25) mg/dL Glucose 94 (74-99) mg/dL Calcium 8.5 (8.4-10.2) mg/dL AST 38 (17-59) U/L ALT 18 (4-49) U/L Alkaline Phosphatase 132 H (38-126) U/L Total Protein 5.9 L (6.3-8.2) g/dL Albumin 3.0 L (3.5-5.0) g/dL Current Medications Generic Name Dose Route Start Last Admin Trade Name Freq PRN Reason Stop Dose Admin Hydrocodone Bitart/Acetaminophen 1 each 12/19/24 17:32 12/19/24 18:05 Hydrocodone/Apap 5-325mg 1 Each Tab PO 1 each Q6H PRN Administration Moderate to Severe Pain (4-10) Albuterol/Ipratropium 3 ml 12/19/24 20:00 12/20/24 08:19 Ipratropium-Albuterol 3 Ml Neb INHALATION 3 ml RT-QID JAYSHREE Administration Apixaban 5 mg 12/19/24 21:00 12/20/24 08:52 Apixaban 5 Mg Tab PO 5 mg BID JAYSHREE Administration Protocol Atorvastatin Calcium 40 mg 12/19/24 21:00 12/19/24 20:11 Atorvastatin 40 Mg Tab PO 40 mg HS JAYSHREE Administration Budesonide 0.5 mg 12/19/24 20:00 12/20/24 08:19 Budesonide 0.5 Mg/2 Ml Nebu INHALATION 0.5 mg RT-BID@08,20 JAYSHREE Administration Furosemide 40 mg 12/20/24 06:00 12/20/24 05:19 Furosemide 40 Mg Tab PO 40 mg BID@0600,1600 JAYSHREE Administration Lactulose 20 gm 12/19/24 21:00 12/20/24 08:53 Lactulose 20 Gm/30 Ml Cup PO Not Given BID JAYSHREE Magnesium Oxide 400 mg 12/20/24 09:00 12/20/24 08:52 Magnesium Oxide 400 Mg Tab PO 400 mg DAILY JAYSHREE Administration Melatonin 5 mg 12/19/24 21:00 12/19/24 20:12 Melatonin 5 Mg Tablet PO 5 mg HS JAYSHREE Administration Metoprolol Tartrate 25 mg 12/19/24 21:00 12/20/24 08:52 Metoprolol Tartrate 25 Mg Tab PO 25 mg BID JAYSHREE Administration Naloxone HCl 0.2 mg 12/19/24 14:33 Naloxone 0.4 Mg/Ml 1 Ml Vial IV Q2M PRN Opioid Reversal Ondansetron HCl 4 mg 12/19/24 14:28 Ondansetron 4 Mg/2 Ml Vial IVP Q8HR PRN Nausea And Vomiting Intake and Output 12/19/24 12/20/24 12/20/24 22:59 06:59 14:59 Output Total 2400 400 Balance -2400 -400 Output: Urine 2400 400 Other: Voiding Method Urinal 12/19/24 10:54 12/19/24 10:54
[2024-12-20] MEDS: ALBUMIN HUMAN 25% 50 ML in EMPTY BAG 1 BAG IVPB SCH ×2 (13:47→14:39)
--- NOTE | 2024-12-20 14:12 | P.PN ---
Subjective Subjective Patient seen and examined at bedside doing well however blood pressure seems to be on the low end today with systolics ordering the 90s He has been diuresing well however given blood pressure concerns, will cut back on his diuresis Patient is planned to have a paracentesis although was not performed this morning HPI This is a 59-year-old male with past medical history of CHF with EF of 2025%, C OPD on 2 L nasal cannula at baseline, hypertension, liver cirrhosis likely secondary to alcohol abuse presents emergency department with complaints of shortness of breath. Patient states he is from [facility] in the left AMA yesterday. He states that he was trying to get to his primary care doctor and that they were not taking care of him correctly. He states that he was not pleased with how routine care of his left lower extremity wound either. Has been having progressive shortness of breath over the past several days. Patient was scheduled to have a paracentesis secondary to his liver cirrhosis tomorrow. States that he is having abdominal tenderness but no fevers or chills nausea. Review of Systems ROS negative except pertinent positives noted in HPI Past Medical History Past Medical History: Atrial Fibrillation, Chest Pain / Angina, Heart Failure, COPD, Hypertension, Liver Disease, Myocardial Infarction (NE), Respiratory Disorder, Syncope Additional Past Medical History / Comment(s): Home oxygen use@2-3L PRN COPD - says has oxygen at home but doesn't wear it, NE- patient reports having 3-4 NE's, + CABG -triple bypass scar, + AICD/PCCM "I have a machine inside that sends all the info to my heart doctor" , Abdominal Hernia surgery x2, paracentesis as needed- last times was at [facility] about 4 months ago per patient Last Myocardial Infarction Date:: 1992 History of Any Multi-Drug Resistant Organisms: None Reported Past Surgical History: AICD, Cholecystectomy, Coronary Bypass/CABG, Heart Catheterization With Stent, Hernia Repair, Pacemaker Additional Past Surgical History / Comment(s): CABG, AICD/Pacemaker placed about 10 years ago per patient 07/19/24, Hernia repair abdominal x2 Past Anesthesia/Blood Transfusion Reactions: No Reported Reaction Date of Last Stent Placement:: 1992 Type of Cardiac Device: Permanent Pacemaker, AICD Device Placement Date:: 1992 Past Psychological History: Anxiety Smoking Status: Current every day smoker Past Alcohol Use History: Occasional Past Drug Use History: Marijuana - Past Family History Mother Family Medical History: Cancer Father Family Medical History: Cancer Medications and Allergies Home Medications Medication Instructions Recorded Confirmed Type Apixaban [Eliquis] 5 mg PO BID #60 tab 07/25/24 12/19/24 Rx Metoprolol Tartrate [Lopressor] 25 mg PO BID #60 tab 07/25/24 12/19/24 Rx Potassium Chloride [K-Tab ER] 20 meq PO DAILY #30 tab 08/01/24 12/19/24 Rx Empagliflozin [Jardiance] 10 mg PO DAILY 09/30/24 12/19/24 History Ergocalciferol [Vitamin D2 (1250 1,250 mcg PO CELESTE 10/06/24 12/19/24 History Mcg = 76620 Iu)] Atorvastatin [Lipitor] 40 mg PO HS 12/19/24 12/19/24 History Budesonide [Pulmicort] 0.5 mg INHALATION RT-BID@08,20 12/19/24 12/19/24 History Furosemide [Lasix] 40 mg PO BID@0600,1600 12/19/24 12/19/24 History HYDROcodone/APAP 5-325MG [[place] 1 tab PO Q6H PRN 12/19/24 12/19/24 History 5-325] Ipratropium-Albuterol Nebulize 3 ml INHALATION RT-QID@06,11,17,23 12/19/24 12/19/24 History [Duoneb 0.5 mg-3 mg/3 ml Soln] Lactulose 20 gm PO BID 12/19/24 12/19/24 History Magnesium Oxide [Magox 400] 400 mg PO DAILY 12/19/24 12/19/24 History Melatonin 5 mg PO HS 12/19/24 12/19/24 History Miconazole Nitrate 2% Powder 1 applic TOPICAL BID 12/19/24 12/19/24 History Naloxone HCl [Narcan] 4 mg NASAL ONCE PRN 12/19/24 12/19/24 History Sodium Chloride [[place]] 1 spray EA NOSTRIL Q1H PRN 12/19/24 12/19/24 History Spironolactone 50 mg PO DAILY 12/19/24 12/19/24 History Allergies Allergy/AdvReac Type Severity Reaction Status Date / Time chloroxine [From Capitrol] AdvReac Rash/Hives Verified 12/19/24 13:33 - Constitutional General appearance: mild distress - EENT Eyes: PERRLA - Respiratory Respiratory: bilateral: diminished, dullness, rales - Cardiovascular Rhythm: regular Heart sounds: normal: S1, S2 - Gastrointestinal General gastrointestinal: decreased bowel sounds Localized gastrointestinal: tender: diffuse, guarding: diffuse - Integumentary Integumentary: normal - Psychiatric Psychiatric: A&O x's 3, appropriate affect, intact judgment & insight Assessment and Plan Assessment: Acute systolic heart failure exacerbation Acute on chronic hypoxic respiratory failure requiring increasing oxygen supplementation support Decompensated liver cirrhosis, distended abdomen, requiring paracentesis Hypotension secondary to liver cirrhosis and diuresis Essential hypertension NSTEMI likely type II demand ischemia from CHF exacerbation Left lower extremity wound Microcytic anemia, possibly RUBINA Will cut back on his Lasix to 20 mg IV push twice daily Continue to monitor I's and O's Small dose of midodrine 2.5 mg 3 times daily to help augment blood pressures while we frannie Also ordered a one-time dose of albumin 25 g Patient still needs to have his paracentesis performed and that he will also require albumin afterwards Consult placed to interventional radiology for paracentesis Cardiology consulted, appreciate recs Discontinue spironolactone at this time given his hypotension can restart a lower dose monitor i's and o's cardiac diet X-ray of the left lower extremity did not show any acute fractures Wound care following, left lower extremity freshly wrapped Will hold off on antibiotics at this time DVT prophylaxis with subcu heparin were appropriate Will restart home medications where appropriate Objective - Vital Signs Vital signs: Vital Signs Temp 98.8 F 12/20/24 12:50 Pulse 60 12/20/24 13:15 Resp 18 12/20/24 13:15 BP 90/45 12/20/24 13:26 Pulse Ox 96 12/20/24 13:15 FiO2 Intake & Output 12/19/24 12/20/24 12/20/24 18:59 06:59 18:59 Intake Total 437 Output Total 1800 1000 1310 Balance -1799 -1000 -873 Weight 80.739 kg Intake: Oral 437 Output: Urine 1800 1000 950 Other 360 Other: Voiding Method Urinal - Labs CBC & Chem 7: 12/20/24 09:38 03/05/25 09:38 Labs: Abnormal Lab Results - Last 24 Hours (Table) 12/20/24 12/20/24 Range/Units 09:38 09:38 RBC 3.07 L (4.30-5.90) m/uL Hgb 7.1 L (13.0-17.5) gm/dL Hct 24.2 L (39.0-53.0) % MCV 78.7 L (80.0-100.0) fL MCH 23.0 L (25.0-35.0) pg MCHC 29.2 L (31.0-37.0) g/dL RDW 19.3 H (11.5-15.5) % Lymphocytes # 0.6 L (1.0-4.8) k/uL Sodium 128 L (137-145) mmol/L Chloride 88 L (98-107) mmol/L Carbon Dioxide 37 H (22-30) mmol/L Glucose 101 H (74-99) mg/dL Calcium 8.2 L (8.4-10.2) mg/dL
[2024-12-20] MEDS: MIDODRINE 5 MG TAB PO SCH (14:21)
[2024-12-20] MEDS: PANTOPRAZOLE 40 MG TABLET PO SCH (18:34)
[2024-12-20] MEDS: FUROSEMIDE 10 MG/ML 2 ML VIAL IV SCH (20:41)
[2024-12-21 08:52] LABS: African American GFR (CKD) >90 (>60 ml/min/1.73 sqM); Anion Gap 6 mmol/L; Blood Urea Nitrogen 20 mg/dL (9-20); Calcium 7.9 mg/dL (8.4-10.2); Carbon Dioxide 36 mmol/L (22-30); Chloride 87 mmol/L (98-107); Glucose 100 mg/dL (74-99); Non-African American GFR(CKD) 85 (>60 ml/min/1.73 sqM); Potassium 3.9 mmol/L (3.5-5.1); Sodium 129 mmol/L (137-145)
--- NOTE | 2024-12-21 11:40 | P.PN ---
Subjective Progress Note Date: 12/21/24 HISTORY OF PRESENT ILLNESS: This is a 59-year-old male with a past medical history significant for coronary artery disease with previous CABG, cardiomyopathy, AICD implantation, hypertension, hyperlipidemia, nicotine dependence and alcohol abuse with liver cirrhosis. 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 We have been asked to see the patient in consultation for congestive heart failure. Patient examined at the bedside in the emergency room. Patient presented to the hospital to chief complaint of shortness of breath. Patient denies chest pain or pressure. The patient reports he is a current cigarette smoker. He reports a history of alcohol abuse but states he quit drinking in July. Patient does report he also was prescribed home oxygen but he has not been using it lately as he states he felt like he did not need it. DIAGNOSTICS: - EKG reveals atrial fibrillation with T wave inversions in lateral leads - Chest xray cardiomegaly and mild pulmonary vascular congestion - Laboratory data: WBC 5.9. Hemoglobin 7.1. Platelet count 155. Sodium 128. Potassium 3.5. BUN 19. Creatinine 0.69. Troponin 0.037. 0.029. proBNP 2109. - Current home cardiac medications include metoprolol tartrate 25 mg twice a day, Lasix 40 mg twice a day, Aldactone 50 mg daily, Eliquis 5 mg twice a day, Jardiance 10 mg daily, atorvastatin 40 mg at night. - Most recent echocardiogram obtained in September 2024 revealed ejection fraction 25 to 30%, severe pulmonary hypertension, eccentric moderate mitral regurgitation, mild MR, mild TR - Cardiac catheterization history: Unknown REVIEW OF SYSTEMS: At the time of my exam: CONSTITUTIONAL: Denies fever or chills. HEENT: Denies blurred vision, vision changes, or eye pain. Denies hemoptysis CARDIOVASCULAR: Denies chest pain. Denies orthopnea. Denies PND. Denies palpitations RESPIRATORY: Denies shortness of breath. GASTROINTESTINAL: Denies abdominal pain. Denies nausea or vomiting. HEMATOLOGIC: Denies bleeding disorders. GENITOURINARY: Denies any blood in urine. SKIN: Denies pruitis. Denies rash. Progress note 12/21/2024 BP 121/61, previously 85/49, heart rate 68 bpm. Atrial fibrillation rate controlled on telemetry. ASSESSMENT: Acute hypoxic respiratory failure with dyspnea on exertion and PND. Acute on chronic heart failure with reduced EF Minimally elevated troponin, likely type II [place] secondary to oxygen supply/demand mismatch Hyponatremia Coronary artery disease with previous CABG Ischemic cardiomyopathy, EF 25 to 30% History of ICD implantation History of VT ablation History of paroxysmal atrial fibrillation, on Eliquis outpatient History of alcohol abuse with alcoholic liver disease chronic Previous paracentesis PLAN: No need to repeat echocardiogram as this was performed in September 2024 Trend troponins Resume home cardiac medications including metoprolol, Lasix, Aldactone, Eliquis, Farxiga, and atorvastatin Begin Entresto 24-26 mg half a tablet twice a day IV iron supplementation x [address] Reddy Continue telemetry monitoring Continue to monitor blood pressure Further recommendations pending patient course Objective - Vital Signs Vital signs: Vital Signs Temp 97.9 F 12/21/24 11:25 Pulse 69 12/21/24 11:25 Resp 20 12/21/24 11:25 BP 121/62 12/21/24 11:25 Pulse Ox 100 12/21/24 11:25 FiO2 Intake & Output 12/20/24 12/21/24 12/21/24 18:59 06:59 18:59 Intake Total 992 240 0 Output Total 1810 425 745 Balance -818 -185 -745 Weight 80.739 kg 76.7 kg Intake: Oral 992 240 0 Output: Drainage 300 200 Left Abdomen 300 200 Urine 1150 425 545 Other 360 Other: Voiding Method Urinal # Voids 1 - Labs CBC & Chem 7: 12/20/24 09:38 12/21/24 07:47 Labs: Abnormal Lab Results - Last 24 Hours (Table) 12/21/24 Range/Units 07:47 Sodium 129 L (137-145) mmol/L Chloride 87 L (98-107) mmol/L Carbon Dioxide 36 H (22-30) mmol/L Glucose 100 H (74-99) mg/dL Calcium 7.9 L (8.4-10.2) mg/dL
--- NOTE | 2024-12-21 13:00 | P.PN ---
Subjective Progress Note Date: 12/21/24 No new complaints today. Patient still reports abdominal distention but reports breathing has improved. Denies pain at this time. Gen: In NAD, non-toxic HEENT: normocephalic, atraumatic, hearing acuity is intant, mucous membranes moist CVS: perfusing all extremities well, bilateral pitting edema, Respiratory: symmetric chest expansion, no accessory muscle use, GI: Distended, ascites present : no suprapubic tenderness, no CVA tenderness MSK/Derm: no rashes, cyanosis Neuro: CN II-XII intact, no motor weakness, Psych: cooperative, euthymic mood, judgment and insight is intact Hospital course: 59-year-old male with medical history of liver cirrhosis secondary to alcohol abuse, heart failure with reduced ejection fraction of 20 to 25%, COPD on 2 L of nasal cannula at baseline, hypertension, hyperlipidemia presented for evaluation of dyspnea. On arrival patient was afebrile, 124/73, heart rate 80 124/73, 94% on 4 L nasal cannula. CBC demonstrated hemoglobin of 7.7 with MCV of 77.5. S odium was 130, chloride 86, CO2 37. Magnesium was 1.4. Total bilirubin is 1.5. Troponin was 0.037. BNP was 2110. Albumin was 3.0. Influenza A, B, RSV, COVID were negative. INR is 1.3. Chest x-ray showed cardiomegaly with pulmonary vascular congestion. EKG showed atrial fibrillation with aberrancy. Patient was admitted to the hospital for further management of heart failure and decompensated liver cirrhosis. Patient was seen in consultation by cardiology who recommended IV iron and ongoing diuretics. Patient was noted to have borderline blood pressure and therefore his Aldactone was held and midodrine was started. Patient was scheduled for paracentesis. Assessment/plan: Acute systolic heart failure exacerbation Acute on chronic hypoxic respiratory failure requiring increasing oxygen supplementation support Decompensated liver cirrhosis, distended abdomen, requiring paracentesis Hypotension secondary to liver cirrhosis and diuresis Continue Lasix to 20 mg IV push twice daily Continue to monitor I's and O's Small dose of midodrine 2.5 mg 3 times daily to help augment blood pressures while we diurese Consult placed to interventional radiology for paracentesis Cardiology consulted, appreciate recs Discontinue spironolactone at this time given his hypotension can restart a lower dose monitor i's and o's cardiac diet Essential hypertension NSTEMI likely type II demand ischemia from CHF exacerbation Left lower extremity wound Microcytic anemia, possibly RUBINA X-ray of the left lower extremity did not show any acute fractures Wound care following, left lower extremity freshly wrapped Will hold off on antibiotics at this time Continue iron infusions for 1 more day DVT prophylaxis with subcu heparin were appropriate Will restart home medications where appropriate Objective - Vital Signs Vital signs: Vital Signs Temp 97.9 F 12/21/24 11:25 Pulse 66 12/21/24 11:56 Resp 20 12/21/24 11:25 BP 121/62 12/21/24 11:25 Pulse Ox 100 12/21/24 11:25 FiO2 Intake & Output 12/20/24 12/21/24 12/21/24 18:59 06:59 18:59 Intake Total 992 240 0 Output Total 1810 425 970 Balance -818 -185 -970 Weight 80.739 kg 76.7 kg Intake: Oral 992 240 0 Output: Drainage 300 325 Left Abdomen 300 325 Urine 1150 425 645 Other 360 Other: Voiding Method Urinal # Voids 1 - Labs CBC & Chem 7: 12/20/24 09:38 12/21/24 07:47 Labs: Abnormal Lab Results - Last 24 Hours (Table) 12/21/24 Range/Units 07:47 Sodium 129 L (137-145) mmol/L Chloride 87 L (98-107) mmol/L Carbon Dioxide 36 H (22-30) mmol/L Glucose 100 H (74-99) mg/dL Calcium 7.9 L (8.4-10.2) mg/dL
--- NOTE | 2024-12-21 14:58 | US ---
EXAMINATION TYPE: US paracentesis abd w/image DATE OF EXAM: 12/21/2024 CLINICAL HISTORY: 59-year-old male with ascites, distention, referred for paracentesis. The procedure was discussed with the patient. The risks, complications, benefits, and alternatives we re discussed and any questions were answered. Informed consent was obtained. The patient was placed s upine on the ultrasound table and prepped and draped in the usual sterile fashion. All elements of maximal barrier technique were utilized. Ultrasound was utilized to determine the precise skin entry site along the right lower quadrant. A 5 [place] One-Step catheter and trocar technique was utilized to access the ascites collection under direct ultrasound guidance. Approximately 5.1 liters of cloudy, straw-colored fluid was removed. Catheter was removed, hemostasis obtained, and a dressing placed. The patient was stable throughout the procedure and remained stable upon discharge from Department of Radiology. IMPRESSION: Successful therapeutic paracentesis under ultrasound guidance. 5.1 L of fluid removed. [facility], , 12/21/2024 2:56 PM
[2024-12-21] MEDS: ALBUMIN HUMAN 25% 50 ML in EMPTY BAG 1 BAG IVPB SCH (15:19)
[2024-12-21] MEDS: SPIRONOLACTONE 25 MG TAB PO SCH (17:04)
[2024-12-22 06:31] LABS: Anisocytosis Slight; Basophils % (A) 0 %; Eosinophils # (A) 0.1 k/uL (0-0.7); Eosinophils % (A) 1 %; HCT 24.1 % (39.0-53.0); Hypochromasia Marked; Lymphocytes # (A) 0.6 k/uL (1.0-4.8); Lymphocytes % (A) 12 %; MCH 22.6 pg (25.0-35.0); MCHC 28.5 g/dL (31.0-37.0); MCV 79.1 fL (80.0-100.0); Mean Platelet Volume 7.7; Microcytosis Slight; Monocytes # (A) 0.3 k/uL (0-1.0); Monocytes % (A) 6 %; Neutrophils # (A) 4.3 k/uL (1.3-7.7); Neutrophils % (A) 77 %; Platelet Count 162 k/uL (150-450); Poikilocytosis Slight; RBC 3.04 m/uL (4.30-5.90); RDW 19.9 % (11.5-15.5); WBC 5.6 k/uL (3.8-10.6)
[2024-12-22 06:45] LABS: ALT 14 U/L (4-49); AST 30 U/L (17-59); African American GFR (CKD) >90 (>60 ml/min/1.73 sqM); Albumin 2.7 g/dL (3.5-5.0); Alkaline Phosphatase 113 U/L (38-126); Anion Gap 3 mmol/L; Bilirubin, Delta 0.3 mg/dL (0.0-0.2); Bilirubin,Unconjugated 0.7 mg/dL (0.0-1.1); Blood Urea Nitrogen 19 mg/dL (9-20); Carbon Dioxide 36 mmol/L (22-30); Chloride 92 mmol/L (98-107); Glucose 91 mg/dL (74-99); Magnesium 1.7 mg/dL (1.6-2.3); Non-African American GFR(CKD) >90 (>60 ml/min/1.73 sqM); Potassium 4.4 mmol/L (3.5-5.1); Sodium 131 mmol/L (137-145); Total Protein 5.2 g/dL (6.3-8.2)
[2024-12-22 06:55] LABS: HGB 6.9 gm/dL (13.0-17.5)
--- NOTE | 2024-12-22 12:49 | P.PN ---
Subjective Progress Note Date: 12/22/24 Hospital course: Patient is a very pleasant 59-year-old male with medical history of liver cirrhosis secondary to alcohol abuse, heart failure with reduced ejection fraction of 20 to 25%, COPD on 2 L of nasal cannula at baseline, hypertension, hyperlipidemia presented for evaluation of dyspnea. On arrival patient was afebrile, 124/73, heart rate 80 124/73, 94% on 4 L nasal cannula. CBC demonstrated hemoglobin of 7.7 with MCV of 77.5. Sodium was 130, chloride 86, CO2 37. Magnesium was 1.4. Total bilirubin is 1.5. Troponin was 0.037. BNP was 2110. Albumin was 3.0. Influenza A, B, RSV, COVID were negative. INR is 1.3. Chest x-ray showed cardiomegaly with pulmonary vascular congestion. EKG showed atrial fibrillation with aberrancy. Patient was admitted to the hospital for further management of heart failure and decompensated liver cirrhosis. Patient was seen in consultation by cardiology who recommended IV iron and ongoing diuretics. Patient was noted to have borderline blood pressure and therefore his Aldactone was held and midodrine was started. Patient underwent paracentesis on 12/21/2024 with successful removal of 5.1 L of ascitic fluid. Physical exam: Patient seen and fully evaluated at bedside this morning. He was resting comfortably and easily awoken via verbal stimuli. Patient alert to person, place, and slightly confused to situation and time. Patient denies having any pain or complaints at this time. General: Nontoxic, no distress and appears stated age. Derm: Skin warm and dry, normal coloration for ethnicity. Head: Atraumatic, normocephalic and symmetric. Eyes: EOM's intact, no lid lag, and anicteric sclera Mouth: no lip lesions, mucus membranes moist Cardiovascular: regular rate and rhythm with normal S1S2, systolic murmur, positive posterior tibial pulses bilaterally, and cap refill < 2 seconds. Lungs: Respirations even, regular, and unlabored on room air. Lungs CTA bilaterally, no rhonchi, no rales, no wheezing, and no accessory muscle usage. Abdominal: Soft distended, nontender to palpation, no guarding Ext: No gross muscle atrophy, bilateral lower extremity edema, no contractures. Movement and sensation intact. Neuro: Speech clear, face symmetrical and GCS 14 grossly intact with no noted focal neuro deficits. Psych:. Patient alert to person, place, and slightly confused to situation and time. Assessment and Plan of Care: Acute systolic heart failure exacerbation NSTEMI likely type II demand ischemia from CHF exacerbation Acute on chronic hypoxic respiratory failure requiring increasing oxygen supplementation support Decompensated liver cirrhosis, distended abdomen, requiring paracentesis Hypotension secondary to liver cirrhosis and diuresis Acute on chronic anemia, anemia of chronic disease secondary to cirrhosis -Continue Lasix to 20 mg IV push twice daily -Continue to monitor I's and O's -Small dose of midodrine 2.5 mg 3 times daily to help augment blood pressures while we diurese -Consult placed to interventional radiology for paracentesis -Cardiology consulted, appreciate recs -Discontinue spironolactone at this time given his hypotension can restart a lower dose -Monitor I's and O's -cardiac diet -Continue iron infusions and order placed for transfusion of 1 unit PRBCs Left lower extremity wound -X-ray of the left lower extremity did not show any acute fractures -Wound care following, left lower extremity freshly wrapped -Will hold off on antibiotics at this time Data and imaging reviewed: -Morning labs reviewed. CBC showing acute on chronic anemia with hemoglobin of 6.9. BMP showing sodium 131, chloride 92, bicarb 36, and anion gap of 3. Blood glucose 91. Magnesium slightly low at 1.7. Delta bilirubin was elevated at 0.3 and albumin was low at 2.7 -Vital signs reviewed. Blood pressure 93/51, heart rate 75, respiratory rate 20, temp 97.3 F, and SpO2 of 97% on room air. CODE STATUS: Full code DVT prophylaxis: HILARY ma and SCDs Anticipated discharge date: Pending clinical course Anticipated discharge place: Likely [facility] referral sent to [facility] Patient was seen independently by Nurse Pracitioner. This document was prepared using [employer] dictation software. Please allow for errors in margarine churn operator, while rare they do occur. Angel Andrews NP rendered care for this patient independently, reviewed the findings and plan as documented in the note above and agree with plan. I did not physically speak with or examine the patient on this date. Objective - Vital Signs Vital signs: Vital Signs Temp 97.3 F L 12/22/24 07:48 Pulse 65 12/22/24 07:59 Resp 20 12/22/24 07:48 BP 93/51 12/22/24 07:48 Pulse Ox 100 12/22/24 07:48 FiO2 Intake & Output 12/21/24 12/22/24 12/22/24 18:59 06:59 18:59 Intake Total 610 480 210 Output Total 1345 575 Balance -735 -95 210 Weight 76.6 kg Intake: IV 10 Invasive Line 1 10 Intake, IV Titration 250 Amount Albumin Human 25% 50 ml 150 In Empty Bag 1 bag @ 200 mls/hr IVPB Q15M [facility] Rx#: [id number] Sodium Ferric Gluconat- 100 Sucrose 125 mg In Sodium Chloride 0.9% 100 ml @ 100 mls/hr IVPB DAILY [facility] Rx#:[id number] Oral 360 480 200 Output: Drainage 350 Left Abdomen 350 Urine 995 575 Other: Voiding Method Urinal # Voids 1 # Bowel Movements 1 - Labs CBC & Chem 7: 12/22/24 06:15 12/22/24 06:12 Labs: Abnormal Lab Results - Last 24 Hours (Table) 12/21/24 12/22/24 12/22/24 Range/Units 07:47 06:12 06:15 RBC 3.04 L (4.30-5.90) m/uL Hgb 6.9 L* (13.0-17.5) gm/dL Hct 24.1 L (39.0-53.0) % MCV 79.1 L (80.0-100.0) fL MCH 22.6 L (25.0-35.0) pg MCHC 28.5 L (31.0-37.0) g/dL RDW 19.9 H (11.5-15.5) % Lymphocytes # 0.6 L (1.0-4.8) k/uL Sodium 129 L 131 L (137-145) mmol/L Chloride 87 L 92 L (98-107) mmol/L Carbon Dioxide 36 H 36 H (22-30) mmol/L Glucose 100 H (74-99) mg/dL Calcium 7.9 L 8.0 L (8.4-10.2) mg/dL Delta Bilirubin 0.3 H (0.0-0.2) mg/dL Total Protein 5.2 L (6.3-8.2) g/dL Albumin 2.7 L (3.5-5.0) g/dL
--- NOTE | 2024-12-22 20:29 | P.PN ---
Subjective Progress Note Date: 12/22/24 HISTORY OF PRESENT ILLNESS: This is a 59-year-old male with a past medical history significant for coronary artery disease with previous CABG, cardiomyopathy, AICD implantation, hypertension, hyperlipidemia, nicotine dependence and alcohol abuse with liver cirrhosis. 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 We have been asked to see the patient in consultation for congestive heart failure. Patient examined at the bedside in the emergency room. Patient presented to the hospital to chief complaint of shortness of breath. Patient denies chest pain or pressure. The patient reports he is a current cigarette smoker. He reports a history of alcohol abuse but states he quit drinking in July. Patient does report he also was prescribed home oxygen but he has not been using it lately as he states he felt like he did not need it. DIAGNOSTICS: - EKG reveals atrial fibrillation with T wave inversions in lateral leads - Chest xray cardiomegaly and mild pulmonary vascular congestion - Laboratory data: WBC 5.9. Hemoglobin 7.1. Platelet count 155. Sodium 128. Potassium 3.5. BUN 19. Creatinine 0.69. Troponin 0.037. 0.029. proBNP 2109. - Current home cardiac medications include metoprolol tartrate 25 mg twice a day, Lasix 40 mg twice a day, Aldactone 50 mg daily, Eliquis 5 mg twice a day, Jardiance 10 mg daily, atorvastatin 40 mg at night. - Most recent echocardiogram obtained in September 2024 revealed ejection fraction 25 to 30%, severe pulmonary hypertension, eccentric moderate mitral regurgitation, mild MR, mild TR - Cardiac catheterization history: Unknown REVIEW OF SYSTEMS: At the time of my exam: CONSTITUTIONAL: Denies fever or chills. HEENT: Denies blurred vision, vision changes, or eye pain. Denies hemoptysis CARDIOVASCULAR: Denies chest pain. Denies orthopnea. Denies PND. Denies palpitations RESPIRATORY: Denies shortness of breath. GASTROINTESTINAL: Denies abdominal pain. Denies nausea or vomiting. HEMATOLOGIC: Denies bleeding disorders. GENITOURINARY: Denies any blood in urine. SKIN: Denies pruitis. Denies rash. Progress note 12/21/2024 BP 121/61, previously 85/49, heart rate 68 bpm. Atrial fibrillation rate controlled on telemetry. 12/22/2024 BP 110/58, pulse is 64 bpm. Rate controlled atrial fibrillation. Hemoglobin is 6.9 today, will get pulmonary to blood transfusion. ASSESSMENT: Acute hypoxic respiratory failure with dyspnea on exertion and PND. Minimally elevated troponin, likely type II [place] secondary to oxygen supply/demand mismatch Acute on chronic heart failure with reduced EF Coronary artery disease with previous CABG Ischemic cardiomyopathy, EF 25 to 30% History of ICD implantation History of VT ablation History of paroxysmal atrial fibrillation, on Eliquis outpatient Hyponatremia History of alcohol abuse with alcoholic liver disease chronic Chronic liver disease Previous paracentesis PLAN: Due to acute anemia, hold Eliquis. Continue Lipitor Continue Farxiga 10 mg daily. Continue Aldactone 25 mg daily. Discontinue IV Lasix. Start Bumex 1 mg p.o. daily Begin Entresto 24-26 mg half a tablet twice a day IV iron supplementation x [address] Reddy Only use midodrine as needed. Long-term prognosis is guarded Objective - Vital Signs Vital signs: Vital Signs Temp 97.6 F 12/22/24 16:00 Pulse 72 12/22/24 20:14 Resp 18 12/22/24 16:00 BP 86/51 12/22/24 16:00 Pulse Ox 100 12/22/24 16:00 FiO2 Intake & Output 12/22/24 12/22/24 12/23/24 06:59 18:59 06:59 Intake Total 480 990 Output Total 575 700 Balance -95 290 Weight 76.6 kg Intake: IV 20 Invasive Line 1 20 Intake, IV Titration 100 Amount Sodium Ferric Gluconat- 100 Sucrose 125 mg In Sodium Chloride 0.9% 100 ml @ 100 mls/hr IVPB DAILY ON LICENSE OF [facility] Rx#:[id number] Oral 480 560 Blood Product 310 Rc As-1 Unit 310 [id number] Output: Urine 575 700 Other: Voiding Method Urinal # Voids 1 1 # Bowel Movements 1 - Labs CBC & Chem 7: 12/22/24 06:15 12/22/24 06:12 Labs: Abnormal Lab Results - Last 24 Hours (Table) 12/22/24 12/22/24 12/22/24 Range/Units 06:12 06:15 08:50 RBC 3.04 L (4.30-5.90) m/uL Hgb 6.9 L* (13.0-17.5) gm/dL Hct 24.1 L (39.0-53.0) % MCV 79.1 L (80.0-100.0) fL MCH 22.6 L (25.0-35.0) pg MCHC 28.5 L (31.0-37.0) g/dL RDW 19.9 H (11.5-15.5) % Lymphocytes # 0.6 L (1.0-4.8) k/uL Sodium 131 L (137-145) mmol/L Chloride 92 L (98-107) mmol/L Carbon Dioxide 36 H (22-30) mmol/L Calcium 8.0 L (8.4-10.2) mg/dL Delta Bilirubin 0.3 H (0.0-0.2) mg/dL Total Protein 5.2 L (6.3-8.2) g/dL Albumin 2.7 L (3.5-5.0) g/dL Crossmatch See Detail
[2024-12-22] MEDS ORDERED: ACETAMINOPHEN TAB 325 MG TAB PO PRN (23:51)
[2024-12-23 10:19] LABS: Anisocytosis Slight; HCT 26.8 % (39.0-53.0); HGB 8.1 gm/dL (13.0-17.5); Hypochromasia Marked; MCH 24.4 pg (25.0-35.0); MCHC 30.3 g/dL (31.0-37.0); MCV 80.5 fL (80.0-100.0); Microcytosis Slight; Platelet Count 152 k/uL (150-450); Poikilocytosis Slight; RBC 3.33 m/uL (4.30-5.90); RDW 19.7 % (11.5-15.5); WBC 7.6 k/uL (3.8-10.6)
[2024-12-23 10:51] LABS: ALT 16 U/L (4-49); AST 32 U/L (17-59); African American GFR (CKD) >90 (>60 ml/min/1.73 sqM); Albumin 2.7 g/dL (3.5-5.0); Alkaline Phosphatase 101 U/L (38-126); Anion Gap 4 mmol/L; Blood Urea Nitrogen 19 mg/dL (9-20); Calcium 8.4 mg/dL (8.4-10.2); Carbon Dioxide 33 mmol/L (22-30); Chloride 95 mmol/L (98-107); Glucose 91 mg/dL (74-99); Magnesium 1.8 mg/dL (1.6-2.3); Non-African American GFR(CKD) >90 (>60 ml/min/1.73 sqM); Potassium 3.8 mmol/L (3.5-5.1); Sodium 132 mmol/L (137-145); Total Bilirubin 1.6 mg/dL (0.2-1.3); Total Protein 5.2 g/dL (6.3-8.2)
--- NOTE | 2024-12-23 13:06 | P.PN ---
Subjective Progress Note Date: 12/23/24 Hospital course: Patient is a very pleasant 59-year-old male with medical history of liver cirrhosis secondary to alcohol abuse, heart failure with reduced ejection fraction of 20 to 25%, COPD on 2 L of nasal cannula at baseline, hypertension, hyperlipidemia presented for evaluation of dyspnea. On arrival patient was afebrile, 124/73, heart rate 80 124/73, 94% on 4 L nasal cannula. CBC demonstrated hemoglobin of 7.7 with MCV of 77.5. Sodium was 130, chloride 86, CO2 37. Magnesium was 1.4. Total bilirubin is 1.5. Troponin was 0.037. BNP was 2110. Albumin was 3.0. Influenza A, B, RSV, COVID were negative. INR is 1.3. Chest x-ray showed cardiomegaly with pulmonary vascular congestion. EKG showed atrial fibrillation with aberrancy. Patient was admitted to the hospital for further management of heart failure and decompensated liver cirrhosis. Patient was seen in consultation by cardiology who recommended IV iron and ongoing diuretics. Patient was noted to have borderline blood pressure and therefore his Aldactone was held and midodrine was started. Patient underwent paracentesis on 12/21/2024 with successful removal of 5.1 L of ascitic fluid. Physical exam: Patient seen and fully evaluated at bedside this morning. He was sitting up in chair at bedside. Patient alert to person, place, and situation and slightly confused to time. He reports worsening abdominal distention and shortness of breath worse when lying down. RN reports that pt was also noted to be slightly hypoxic when lying flat but improved with sitting head of bead up. Patient de nies having any abdominal pain or discomfort and denies any chest pain, cough or congestion. General: Nontoxic, no distress and appears stated age. Derm: Skin warm and dry, normal coloration for ethnicity. Head: Atraumatic, normocephalic and symmetric. Eyes: EOM's intact, no lid lag, and anicteric sclera Mouth: no lip lesions, mucus membranes moist Cardiovascular: regular rate and rhythm with normal S1S2, systolic murmur, positive posterior tibial pulses bilaterally, and cap refill < 2 seconds. Lungs: Respirations even, regular, and unlabored on room air. Lungs CTA bilaterally, no rhonchi, no rales, no wheezing, and no accessory muscle usage. Abdominal: Increased abdominal distention, ascitic distended abdomen, nontender to palpation, no guarding Ext: No gross muscle atrophy, bilateral lower extremity edema, no contractures. Movement and sensation intact. Neuro: Speech clear, face symmetrical and GCS 14 grossly intact with no noted focal neuro deficits. Psych:. Patient alert to person, place, and slightly confused to situation and time. Assessment and Plan of Care: Acute systolic heart failure exacerbation NSTEMI likely type II demand ischemia from CHF exacerbation Acute on chronic hypoxic respiratory failure requiring increasing oxygen supplementation support Decompensated liver cirrhosis, distended abdomen, requiring paracentesis Hypotension secondary to liver cirrhosis and diuresis Acute on chronic anemia, anemia of chronic disease secondary to cirrhosis -Cardiology following, discontinuing Lasix this morning and starting patient on Bumex 1 mg daily. -Continue to monitor I's and O's -Continue midodrine 2.5 mg 3 times daily -Patient is status post therapeutic paracentesis on 12/21/2024 with removal of 5.1 L of ascitic fluid. Consult again placed to interventional radiology for evaluation for repeat paracentesis -Continue Aldactone 25 mg daily in addition to Bumex 1 mg daily -Cardiac diet -Patient completed 3-day course of IV Ferrlecit will start patient on oral ferr ous sulfate 325 mg daily. -S/p transfusion 1 unit PRBCs, hemoglobin stable at 8.1. Left lower extremity wound -X-ray of the left lower extremity did not show any acute fractures -Wound care following, left lower extremity freshly wrapped -Will hold off on antibiotics at this time Data and imaging reviewed: -Morning labs reviewed. CBC showing hemoglobin 8.1 and MCH of 24.4. BMP showing sodium 132, chloride 95, bicarb 33. Magnesium 1.8. Liver profile from total bili of 1.6. -Vital signs reviewed. Blood pressure 92/55, heart rate 65, respiratory rate 18, temp 97.6 F, and SpO2 100% on 2 L CODE STATUS: Full code DVT prophylaxis: HILARY ma and SCDs Anticipated discharge date: Pending clinical course Anticipated discharge place: Likely [facility] referral sent to [facility] and awaiting placement Patient was seen independently by Nurse Pracitioner. This document was prepared using [employer] dictation software. Please allow for errors in employee development director, while rare they do occur. Angel Andrews NP rendered care for this patient independently, reviewed the findings and plan as documented in the note above and agree with plan. I did not physically speak with or examine the patient on this date. Objective - Vital Signs Vital signs: Vital Signs Temp 97.9 F 12/22/24 20:30 Pulse 71 12/23/24 07:57 Resp 18 12/23/24 04:40 BP 108/59 12/23/24 04:40 Pulse Ox 95 12/23/24 07:47 FiO2 Intake & Output 12/22/24 12/23/24 12/23/24 18:59 06:59 18:59 Intake Total 990 20 180 Output Total 700 700 Balance 290 -680 180 Weight 76.4 kg Intake: IV 20 20 Invasive Line 1 20 20 Intake, IV Titration 100 Amount Sodium Ferric Gluconat- 100 Sucrose 125 mg In Sodium Chloride 0.9% 100 ml @ 100 mls/hr IVPB DAILY [facility] Rx#:[id number] Oral 560 180 Blood Product 310 Rc As-1 Unit 310 [id number] Output: Urine 700 700 Other: Voiding Method Urinal # Voids 1 1 # Bowel Movements 1 1 - Labs CBC & Chem 7: 12/23/24 09:55 12/23/24 09:55 Labs: Abnormal Lab Results - Last 24 Hours (Table) 12/22/24 Range/Units 08:50 Crossmatch See Detail
[2024-12-23] MEDS ORDERED: MAGNESIUM SULFATE-D5W PMX 1 GM in DEXTROSE/WATER 1 100ML.BAG IVPB SCH (13:30)
[2024-12-23] MEDS: BUMETANIDE 1 MG TAB PO SCH (13:45)
[2024-12-24 06:16] LABS: Glucose,Whole Blood 89 mg/dL (70-110)
[2024-12-24 08:10] LABS: Anisocytosis Moderate; HCT 30.5 % (39.0-53.0); HGB 8.8 gm/dL (13.0-17.5); Hypochromasia Marked; MCH 23.4 pg (25.0-35.0); MCV 80.8 fL (80.0-100.0); Microcytosis Slight; Platelet Count 162 k/uL (150-450); Poikilocytosis Slight; RBC 3.77 m/uL (4.30-5.90); RDW 20.6 % (11.5-15.5)
[2024-12-24 08:27] LABS: ALT 18 U/L (4-49); AST 37 U/L (17-59); African American GFR (CKD) >90 (>60 ml/min/1.73 sqM); Alkaline Phosphatase 144 U/L (38-126); Anion Gap 7 mmol/L; Blood Urea Nitrogen 20 mg/dL (9-20); Calcium 8.6 mg/dL (8.4-10.2); Carbon Dioxide 31 mmol/L (22-30); Chloride 95 mmol/L (98-107); Glucose 86 mg/dL (74-99); Magnesium 1.7 mg/dL (1.6-2.3); Non-African American GFR(CKD) 89 (>60 ml/min/1.73 sqM); Potassium 4.4 mmol/L (3.5-5.1); Sodium 133 mmol/L (137-145); Total Bilirubin 1.8 mg/dL (0.2-1.3); Total Protein 5.8 g/dL (6.3-8.2)
[2024-12-24] MEDS: MAGNESIUM SULFATE-D5W PMX 1 GM in DEXTROSE/WATER 1 100ML.BAG IVPB SCH (09:37)
[2024-12-24] MEDS: MIDODRINE 5 MG TAB PO SCH (12:25)
[2024-12-24] MEDS: SPIRONOLACTONE 25 MG TAB PO SCH (13:42)
[2024-12-24] MEDS: FERROUS SULFATE 325 MG TAB PO SCH (13:42)
[2024-12-24] MEDS: DAPAGLIFLOZIN PROPANEDIOL 10 MG TABLET PO SCH (13:42)
[2024-12-24] MEDS: BUMETANIDE 1 MG TAB PO SCH (13:42)
--- NOTE | 2024-12-24 14:43 | P.PN ---
Subjective Progress Note Date: 12/24/24 Hospital course: Patient is a very pleasant 59-year-old male with medical history of liver cirrhosis secondary to alcohol abuse, heart failure with reduced ejection fraction of 20 to 25%, COPD on 2 L of nasal cannula at baseline, hypertension, hyperlipidemia presented for evaluation of dyspnea. On arrival patient was afebrile, 124/73, heart rate 80 124/73, 94% on 4 L nasal cannula. CBC demonstrated hemoglobin of 7.7 with MCV of 77.5. Sodium was 130, chloride 86, CO2 37. Magnesium was 1.4. Total bilirubin is 1.5. Troponin was 0.037. BNP was 2110. Albumin was 3.0. Influenza A, B, RSV, COVID were negative. INR is 1.3. Chest x-ray showed cardiomegaly with pulmonary vascular congestion. EKG showed atrial fibrillation with aberrancy. Patient was admitted to the hospital for further management of heart failure and decompensated liver cirrhosis. Patient was seen in consultation by cardiology who recommended IV iron and ongoing diuretics. Patient was noted to have borderline blood pressure and therefore his Aldactone was held and midodrine was started. Patient underwent paracentesis on 12/21/2024 with successful removal of 5.1 L of ascitic fluid. Physical exam: Patient seen and fully evaluated at bedside this morning. He was sitting up in chair and remains alert to person, place, and situation and confused to time. Blood pressures remained soft, discussed with patient we will increase midodrine dosage. Patient denies abdominal pain but does report worsening distention. Interventional radiology was consulted again for repeat paracentesis. General: Nontoxic, no distress and appears stated age. Derm: Skin warm and dry, normal coloration for ethnicity. Head: Atraumatic, normocephalic and symmetric. Eyes: EOM's intact, no lid lag, and anicteric sclera Mouth: no lip lesions, mucus membranes moist Cardiovascular: regular rate and rhythm with normal S1S2, systolic murmur, positive posterior tibial pulses bilaterally, and cap refill < 2 seconds. Lungs: Respirations even, regular, and unlabored on room air. Lungs CTA bilaterally, no rhonchi, no rales, no wheezing, and no accessory muscle usage. Abdominal: Increased abdominal distention, ascitic distended abdomen, nontender to palpation, no guarding Ext: No gross muscle atrophy, bilateral lower extremity edema, no contractures. Movement and sensation intact. Neuro: Speech clear, face symmetrical and GCS 14 grossly intact with no noted focal neuro deficits. Psych:. Patient alert to person, place, and slightly confused to situation and time. Assessment and Plan of Care: Acute systolic heart failure exacerbation NSTEMI likely type II demand ischemia from CHF exacerbation Acute on chronic hypoxic respiratory failure requiring increasing oxygen supplementation support Decompensated liver cirrhosis, distended abdomen, requiring paracentesis Hypotension secondary to liver cirrhosis and diuresis Acute on chronic anemia, anemia of chronic disease secondary to cirrhosis -Cardiology following, discontinuing Lasix this morning and starting patient on Bumex 1 mg daily. -Continue to monitor I's and O's -Increased midodrine to 5 mg 3 times daily. -Patient is status post therapeutic paracentesis on 12/21/2024 with removal of 5.1 L of ascitic fluid. Consult again placed to interventional radiology for evaluation for repeat paracentesis -Continue Aldactone 25 mg daily in addition to Bumex 1 mg daily -Cardiac diet -Patient completed 3-day course of IV Ferrlecit will start patient on oral ferrous sulfate 325 mg daily. -S/p transfusion 1 unit PRBCs, hemoglobin stable at 8.8. Left lower extremity wound -X-ray of the left lower extremity did not show any acute fractures -Wound care following, left lower extremity freshly wrapped -Will hold off on antibiotics at this time Data and imaging reviewed: -Morning labs reviewed. CBC showing hemoglobin 8.8 and MCH of 23.4. BMP showing sodium 133, chloride 95, bicarb 31. Magnesium 1.7. Liver profile from total bili of 1.8. -Vital signs reviewed. Blood pressure 97/57, heart rate 65, respiratory rate 16, and SpO2 of 94% on 2 L. CODE STATUS: Full code DVT prophylaxis: HILARY ma and SCDs Anticipated discharge date: Pending clinical course Anticipated discharge place: Likely SNF referral sent to [facility] and awaiting placement Patient was seen independently by Nurse Pracitioner. This document was prepared using [employer] dictation software. Please allow for errors in reroller hand, while rare they do occur. Angel Andrews NP rendered care for this patient independently, reviewed the findings and plan as documented in the note above and agree with plan. I did not physically speak with or examine the patient on this date. Objective - Vital Signs Vital signs: Vital Signs Temp 97.6 F 12/23/24 08:00 Pulse 72 12/24/24 08:34 Resp 16 12/24/24 04:30 BP 97/57 12/24/24 06:55 Pulse Ox 94 L 12/24/24 04:30 FiO2 Intake & Output 12/23/24 12/24/24 12/24/24 17:59 06:59 18:59 Intake Total 250 Output Total Balance 250 Weight Intake: Oral 250 Output: Urine Other: Voiding Method # Voids 0 # Bowel Movements 0 - Labs CBC & Chem 7: 12/24/24 07:32 12/24/24 07:32 Labs: Abnormal Lab Results - Last 24 Hours (Table) 12/23/24 12/23/24 12/24/24 Range/Units 09:55 09:55 07:32 RBC 3.33 L 3.77 L (4.30-5.90) m/uL Hgb 8.1 L 8.8 L (13.0-17.5) gm/dL Hct 26.8 L 30.5 L (39.0-53.0) % MCH 24.4 L 23.4 L (25.0-35.0) pg MCHC 30.3 L 29.0 L (31.0-37.0) g/dL RDW 19.7 H 20.6 H (11.5-15.5) % Sodium 132 L (137-145) mmol/L Chloride 95 L (98-107) mmol/L Carbon Dioxide 33 H (22-30) mmol/L Total Bilirubin 1.6 H (0.2-1.3) mg/dL Alkaline Phosphatase (38-126) U/L Total Protein 5.2 L (6.3-8.2) g/dL Albumin 2.7 L (3.5-5.0) g/dL 12/24/24 Range/Units 07:32 RBC (4.30-5.90) m/uL Hgb (13.0-17.5) gm/dL Hct (39.0-53.0) % MCH (25.0-35.0) pg MCHC (31.0-37.0) g/dL RDW (11.5-15.5) % Sodium 133 L (137-145) mmol/L Chloride 95 L (98-107) mmol/L Carbon Dioxide 31 H (22-30) mmol/L Total Bilirubin 1.8 H (0.2-1.3) mg/dL Alkaline Phosphatase 144 H (38-126) U/L Total Protein 5.8 L (6.3-8.2) g/dL Albumin 3.0 L (3.5-5.0) g/dL
--- NOTE | 2024-12-24 19:33 | P.PN ---
Subjective Progress Note Date: 12/23/24 HISTORY OF PRESENT ILLNESS: This is a 59-year-old male with a past medical history significant for coronary artery disease with previous CABG, cardiomyopathy, AICD implantation, hypertension, hyperlipidemia, nicotine dependence and alcohol abuse with liver cirrhosis. 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 We have been asked to see the patient in consultation for congestive heart failure. Patient examined at the bedside in the emergency room. Patient presented to the hospital to chief complaint of shortness of breath. Patient denies chest pain or pressure. The patient reports he is a current cigarette smoker. He reports a history of alcohol abuse but states he quit drinking in July. Patient does report he also was prescribed home oxygen but he has not been using it lately as he states he felt like he did not need it. DIAGNOSTICS: - EKG reveals atrial fibrillation with T wave inversions in lateral leads - Chest xray cardiomegaly and mild pulmonary vascular congestion - Laboratory data: WBC 5.9. Hemoglobin 7.1. Platelet count 155. Sodium 128. Potassium 3.5. BUN 19. Creatinine 0.69. Troponin 0.037. 0.029. proBNP 2109. - Current home cardiac medications include metoprolol tartrate 25 mg twice a day, Lasix 40 mg twice a day, Aldactone 50 mg daily, Eliquis 5 mg twice a day, Jardiance 10 mg daily, atorvastatin 40 mg at night. - Most recent echocardiogram obtained in September 2024 revealed ejection fraction 25 to 30%, severe pulmonary hypertension, eccentric moderate mitral regurgitation, mild MR, mild TR - Cardiac catheterization history: Unknown REVIEW OF SYSTEMS: At the time of my exam: CONSTITUTIONAL: Denies fever or chills. HEENT: Denies blurred vision, vision changes, or eye pain. Denies hemoptysis CARDIOVASCULAR: Denies chest pain. Denies orthopnea. Denies PND. Denies palpitations RESPIRATORY: Denies shortness of breath. GASTROINTESTINAL: Denies abdominal pain. Denies nausea or vomiting. HEMATOLOGIC: Denies bleeding disorders. GENITOURINARY: Denies any blood in urine. SKIN: Denies pruitis. Denies rash. Progress note 12/21/2024 BP 121/61, previously 85/49, heart rate 68 bpm. Atrial fibrillation rate controlled on telemetry. 12/22/2024 BP 110/58, pulse is 64 bpm. Rate controlled atrial fibrillation. Hemoglobin is 6.9 today, will get blood transfusion. 12/23/2024 No new cardiovascular events, Hemoglobin stable after a blood transfusion. Borderline blood pressure but tolerating current diuretic and cardiac medication regimen. ASSESSMENT: Acute hypoxic respiratory failure with dyspnea on exertion and PND. Minimally elevated troponin, likely type II [place] secondary to oxygen supply/demand mismatch Acute on chronic heart failure with reduced EF Coronary artery disease with previous CABG Ischemic cardiomyopathy, EF 25 to 30% History of ICD implantation History of VT ablation History of paroxysmal atrial fibrillation, on Eliquis outpatient Hyponatremia History of alcohol abuse with alcoholic liver disease chronic Chronic liver disease Previous paracentesis PLAN: Due to acute anemia, hold Eliquis. Continue Lipitor Continue Farxiga 10 mg daily. Continue Aldactone 25 mg daily. Discontinue IV Lasix. Start Bumex 1 mg p.o. daily Begin Entresto 24-26 mg half a tablet twice a day IV iron supplementation x [address] Reddy Only use midodrine as needed. At this time cardiology team will sign off. Please reconsult us in case of any question Long-term prognosis is guarded Objective - Vital Signs Vital signs: Vital Signs Temp 98.5 F 12/24/24 16:02 Pulse 62 12/24/24 16:27 Resp 17 12/24/24 16:02 BP 98/60 12/24/24 16:02 Pulse Ox 91 L 12/24/24 16:02 FiO2 Intake & Output 12/24/24 12/24/24 12/25/24 06:59 18:59 06:59 Intake Total 350 Output Total 700 Balance -350 Weight Intake: Intake, IV Titration 100 Amount Magnesium Sulfate-D5w Pmx 100 1 gm In Dextrose/Water 1 100ml.bag @ 100 mls/hr IVPB Q1H [facility] Rx#: [id number] Oral 250 Output: Urine 700 Other: Voiding Method Urinal # Voids 0 # Bowel Movements 0 - Labs CBC & Chem 7: 12/24/24 07:32 12/24/24 07:32 Labs: Abnormal Lab Results - Last 24 Hours (Table) 12/24/24 12/24/24 Range/Units 07:32 07:32 RBC 3.77 L (4.30-5.90) m/uL Hgb 8.8 L (13.0-17.5) gm/dL Hct 30.5 L (39.0-53.0) % MCH 23.4 L (25.0-35.0) pg MCHC 29.0 L (31.0-37.0) g/dL RDW 20.6 H (11.5-15.5) % Sodium 133 L (137-145) mmol/L Chloride 95 L (98-107) mmol/L Carbon Dioxide 31 H (22-30) mmol/L Total Bilirubin 1.8 H (0.2-1.3) mg/dL Alkaline Phosphatase 144 H (38-126) U/L Total Protein 5.8 L (6.3-8.2) g/dL Albumin 3.0 L (3.5-5.0) g/dL
--- NOTE | 2024-12-25 09:03 | US ---
EXAMINATION TYPE: US abdomen limited DATE OF EXAM: 12/25/2024 COMPARISON: Ultrasound 4 days earlier CLINICAL INDICATION: Male, 59 years old with history of assess for ascites; Ascites TECHNIQUE: Grayscale imaging of the abdomen for ascites. FINDINGS: Moderate amount of ascites in the right abdomen on images saved. IMPRESSION: As above. Amount of ascites less than most recent study. [facility], Workstation: [employer], 12/25/2024 9:01 AM
[2024-12-25 09:56] LABS: Anisocytosis Moderate; HCT 30.3 % (39.0-53.0); Hypochromasia Marked; MCH 24.2 pg (25.0-35.0); MCHC 29.7 g/dL (31.0-37.0); MCV 81.3 fL (80.0-100.0); Mean Platelet Volume 7.7; Microcytosis Slight; Platelet Count 150 k/uL (150-450); Poikilocytosis Slight; RBC 3.73 m/uL (4.30-5.90); RDW 21.3 % (11.5-15.5); WBC 7.3 k/uL (3.8-10.6)
[2024-12-25 10:15] LABS: Anion Gap 7 mmol/L; Blood Urea Nitrogen 20 mg/dL (9-20); Carbon Dioxide 31 mmol/L (22-30); Chloride 95 mmol/L (98-107); Glucose 122 mg/dL (74-99); Potassium 3.9 mmol/L (3.5-5.1); Sodium 133 mmol/L (137-145)
[2024-12-25 10:16] LABS: ALT 18 U/L (4-49); AST 35 U/L (17-59); African American GFR (CKD) >90 (>60 ml/min/1.73 sqM); Albumin 2.8 g/dL (3.5-5.0); Alkaline Phosphatase 120 U/L (38-126); Calcium 8.5 mg/dL (8.4-10.2); Globulin 2.8 g/dL; Non-African American GFR(CKD) >90 (>60 ml/min/1.73 sqM); Total Bilirubin 1.5 mg/dL (0.2-1.3); Total Protein 5.6 g/dL (6.3-8.2)
[2024-12-25 13:04] LABS: INR 1.16 sec (0.93-1.11); Prothrombin Time 12.9 sec (9.9-11.9)
--- NOTE | 2024-12-25 13:21 | P.PN ---
Subjective Progress Note Date: 12/25/24 Hospital course: Patient is a very pleasant 59-year-old male with medical history of liver cirrhosis secondary to alcohol abuse, heart failure with reduced ejection fraction of 20 to 25%, COPD on 2 L of nasal cannula at baseline, hypertension, hyperlipidemia presented for evaluation of dyspnea. On arrival patient was afebrile, 124/73, heart rate 80 124/73, 94% on 4 L nasal cannula. CBC demonstrated hemoglobin of 7.7 with MCV of 77.5. Sodium was 130, chloride 86, CO2 37. Magnesium was 1.4. Total bilirubin is 1.5. Troponin was 0.037. BNP was 2110. Albumin was 3.0. Influenza A, B, RSV, COVID were negative. INR is 1.3. Chest x-ray showed cardiomegaly with pulmonary vascular congestion. EKG showed atrial fibrillation with aberrancy. Patient was admitted to the hospital for further management of heart failure and decompensated liver cirrhosis. Patient was seen in consultation by cardiology who recommended IV iron and ongoing diuretics. Patient was noted to have borderline blood pressure and therefore his Aldactone was held and midodrine was started. Patient underwent paracentesis on 12/21/2024 with successful removal of 5.1 L of ascitic fluid. Physical exam: Patient being taken down for repeat paracentesis. Possible discharge later today versus tomorrow morning. This will depend on blood pressures status post paracentesis. General: Nontoxic, no distress and appears stated age. Derm: Skin warm and dry, normal coloration for ethnicity. Head: Atraumatic, normocephalic and symmetric. Eyes: EOM's intact, no lid lag, and anicteric sclera Mouth: no lip lesions, mucus membranes moist Cardiovascular: regular rate and rhythm with normal S1S2, systolic murmur, positive posterior tibial pulses bilaterally, and cap refill < 2 seconds. Lungs: Respirations even, regular, and unlabored on room air. Lungs CTA bilaterally, no rhonchi, no rales, no wheezing, and no accessory muscle usage. Abdominal: Increased abdominal distention, ascitic distended abdomen, nontender to palpation, no guarding Ext: No gross muscle atrophy, bilateral lower extremity edema, no contractures. Movement and sensation intact. Neuro: Speech clear, face symmetrical and GCS 14 grossly intact with no noted focal neuro deficits. Psych:. Patient alert to person, place, and slightly confused to situation and time. Assessment and Plan of Care: Decompensated liver cirrhosis, distended abdomen, requiring paracentesis. Acute systolic heart failure exacerbation. NSTEMI likely type II demand ischemia from CHF exacerbation Acute on chronic hypoxic respiratory failure requiring increasing oxygen supp lementation support Hypotension secondary to liver cirrhosis and diuresis Acute on chronic anemia, anemia of chronic disease secondary to cirrhosis -Cardiology evaluated, discontinuing Lasix and started patient on Bumex 1 mg daily. -Continue to monitor I's and O's -Increased midodrine to 5 mg 3 times daily, blood pressure is improving with systolic mid 90s to 110. -Patient is status post therapeutic paracentesis on 12/21/2024 with removal of 5.1 L of ascitic fluid and going for repeat paracentesis this morning. -Continue Aldactone 25 mg daily in addition to Bumex 1 mg daily -Cardiac diet -Patient completed 3-day course of IV Ferrlecit and was placed on ferrous sulfate 325 mg daily. -S/p transfusion 1 unit PRBCs, hemoglobin stable at 9.0. Left lower extremity wound -X-ray of the left lower extremity did not show any acute fractures -Wound care following, left lower extremity freshly wrapped -No need for antibiotics at this time Data and imaging reviewed: -Morning labs reviewed. CBC showing hemoglobin 9.0 and MCH of 24.2. BMP showing sodium 133, chloride 95, bicarb 31. Blood glucose 122. Magnesium 2.0. Liver profile showing total bili 1.5, total protein of 5.6, and albumin of 2.8. Magnesium 1.7. Liver profile from total bili of 1.8. -Vital signs reviewed. Blood pressure 119/67, heart rate 71, respiratory rate 18, temp 98.3 F, and SpO2 of 96% on room air. CODE STATUS: Full code DVT prophylaxis: HILARY hose and SCDs Anticipated discharge date: Pending clinical course Anticipated discharge place: Likely [facility] referral sent to [facility] and awaiting placement Patient was seen independently by Nurse Pracitioner. This document was prepared using [employer] dictation software. Please allow for errors in deburr technician, while rare they do occur. Angel Andrews NP rendered care for this patient independently, reviewed the findings and plan as documented in the note above and agree with plan. I did not physically speak with or examine the patient on this date. Objective - Vital Signs Vital signs: Vital Signs Temp 97.7 F 12/25/24 01:00 Pulse 68 12/25/24 08:30 Resp 16 12/25/24 06:10 BP 103/64 12/25/24 06:10 Pulse Ox 94 L 12/25/24 08:24 FiO2 Intake & Output 12/24/24 12/25/24 12/25/24 18:59 06:59 18:59 Intake Total 350 540 Output Total 700 0 Balance -350 540 Intake: Intake, IV Titration 100 Amount Magnesium Sulfate-D5w Pmx 100 1 gm In Dextrose/Water 1 100ml.bag @ 100 mls/hr IVPB Q1H [facility] Rx#: [id number] Oral 250 540 Output: Urine 700 0 Other: Voiding Method Urinal Urinal # Voids 0 4 # Bowel Movements 0 3 - Labs CBC & Chem 7: 12/25/24 09:04 12/25/24 09:04
[2024-12-25] MEDS: ALBUMIN HUMAN 25% 50 ML in EMPTY BAG 1 BAG IVPB SCH (13:46)
--- NOTE | 2024-12-25 15:07 | US ---
EXAMINATION TYPE: US paracentesis abd w/image DATE OF EXAM: 12/25/2024 CLINICAL HISTORY: Ascites The procedure was discussed with the patient. The risks, complications, benefits, and alternatives we re discussed and any questions were answered. Informed consent was obtained. The patient was placed s upine on the ultrasound table and prepped and draped in the usual sterile fashion. All elements of maximal barrier technique were utilized. Under ultrasound guidance, access into the right lower quadrant was obtained, via the paracentesis catheter system and direct ultrasound guidanc e. Approximately 4.6 liters of straw-colored fluid was removed. The patient was stable throughout the pr ocedure and remained stable upon discharge from Department of Radiology. IMPRESSION: Successful therapeutic paracentesis under ultrasound guidance. [facility], , 12/25/2024 3:05 PM
[2024-12-26 09:25] LABS: HCT 29.1 % (39.6-50.0); HGB 8.7 g/dL (13.0-17.0); Hypochromasia (M) 2+ (None Seen); MCHC 29.9 g/dL (32.0-37.0); MCV 80.2 FL (80.0-97.0); Mean Platelet Volume 11.3 FL (9.5-12.2); NRBC Per 100 WBC 0 X 10*3/uL (0.00-0.01); Platelet Count 141 X 10*3/uL (140-440); RBC 3.63 X 10*6/uL (4.40-5.60); RDW 24.3 % (11.5-14.5); WBC 7.13 X 10*3/uL (4.50-10.00)
[2024-12-26 09:30] LABS: ALT 19 U/L (10-49); AST 35 U/L (14-35); Albumin 3.3 g/dL (3.8-4.9); Alkaline Phosphatase 128 U/L (41-126); BUN/Creat Ratio 21.25 Ratio (12.00-20.00); Calcium 8.7 mg/dL (8.7-10.3); Carbon Dioxide 27.1 mmol/L (21.6-31.8); Chloride 100 mmol/L (96-109); Globulin 2.2 g/dL (1.6-3.3); Glucose 96 mg/dL (70-110); Magnesium 1.7 mg/dL (1.5-2.4); Potassium 4.4 mmol/L (3.5-5.5); Sodium 136 mmol/L (135-145); Total Bilirubin 1.2 mg/dL (0.3-1.2); Total Protein 5.5 g/dL (6.2-8.2)
--- NOTE | 2024-12-26 12:43 | P.PN ---
Subjective Progress Note Date: 12/26/24 Hospital course: Patient is a very pleasant 59-year-old male with medical history of liver cirrhosis secondary to alcohol abuse, heart failure with reduced ejection fraction of 20 to 25%, COPD on 2 L of nasal cannula at baseline, hypertension, hyperlipidemia presented for evaluation of dyspnea. On arrival patient was afebrile, 124/73, heart rate 80 124/73, 94% on 4 L nasal cannula. CBC demonstrated hemoglobin of 7.7 with MCV of 77.5. Sodium was 130, chloride 86, CO2 37. Magnesium was 1.4. Total bilirubin is 1.5. Troponin was 0.037. BNP was 2110. Albumin was 3.0. Influenza A, B, RSV, COVID were negative. INR is 1.3. Chest x-ray showed cardiomegaly with pulmonary vascular congestion. EKG showed atrial fibrillation with aberrancy. Patient was admitted to the hospital for further management of heart failure and decompensated liver cirrhosis. Patient was seen in consultation by cardiology who recommended IV iron and ongoing diuretics. Patient was noted to have borderline blood pressure and therefore his Aldactone was held and midodrine was started. Patient underwent paracentesis on 12/21/2024 with successful removal of 5.1 L of ascitic fluid and Aldactone was restarted at lower dose. Midodrine was increased to 5 mg 3 times daily and patient's blood pressure is stable. Patient's abdomen again feeling with ascitic fluid and patient underwent repeat paracentesis on 12/25/2024 with removal of 4.6 L of ascitic fluid. Albumin was given. Patient's blood pressures remaining stable on midodrine. Patient is medically optimized for dis charge at this time. He has been accepted to [facility] and we are awaiting insurance authorization at this time. Physical exam: Patient seen and fully evaluated at bedside this morning. He was resting com fortably and easily awoken via verbal stimuli. He currently denies having any complaints. Patient is awaiting insurance authorization for discharge to SNF, patient updated on plan of care and all questions answered at this time. General: Nontoxic, no distress and appears stated age. Derm: Skin warm and dry, normal coloration for ethnicity. Head: Atraumatic, normocephalic and symmetric. Eyes: EOM's intact, no lid lag, and anicteric sclera Mouth: no lip lesions, mucus membranes moist Cardiovascular: regular rate and rhythm with normal S1S2, systolic murmur, positive posterior tibial pulses bilaterally, and cap refill < 2 seconds. Lungs: Respirations even, regular, and unlabored on room air. Lungs CTA bilaterally, no rhonchi, no rales, no wheezing, and no accessory muscle usage. Abdominal: soft distended abdomen, nontender to palpation, no guarding Ext: No gross muscle atrophy, scant lower extremity edema, no contractures. Movement and sensation intact. Neuro: Speech clear, face symmetrical and GCS 14 grossly intact with no noted focal neuro deficits. Psych:. Patient alert to person, place, and slightly confused to situation and time. Assessment and Plan of Care: Decompensated liver cirrhosis, distended abdomen, requiring paracentesis. Acute systolic heart failure exacerbation. NSTEMI likely type II demand ischemia from CHF exacerbation Acute on chronic hypoxic respiratory failure requiring increasing oxygen supplementation support Hypotension secondary to liver cirrhosis and diuresis Acute on chronic anemia, anemia of chronic disease secondary to cirrhosis -Cardiology evaluated, discontinuing Lasix and started patient on Bumex 1 mg daily and clearing patient from cardiac perspective for drip.. -Continue to monitor I's and O's -Continue midodrine to 5 mg 3 times daily, blood pressures been stable on current dose of midodrine. -Patient is status post therapeutic paracentesis on 12/21/2024 with removal of 5.1 L of ascitic fluid and a repeat paracentesis on 12/25/2024 with an additional 4.6 L of fluid. Patient received albumin 25 g. -Continue Aldactone 25 mg daily and Bumex 1 mg daily -Cardiac diet -Patient completed 3-day course of IV Ferrlecit and was placed on ferrous sulfate 325 mg daily. -S/p transfusion 1 unit PRBCs, hemoglobin stable at 8.7. Left lower extremity wound -X-ray of the left lower extremity did not show any acute fractures -Wound care following, left lower extremity freshly wrapped -No need for antibiotics at this time Data and imaging reviewed: -Morning labs reviewed. CBC showing hemoglobin 8.7. BMP unremarkable. Blood glucose 96. Magnesium slightly low at 1.7 and liver profile unremarkable with exception of slightly elevated alkaline phosphatase of 128. Albumin remains low at 3.3. -Vital signs reviewed. Blood pressure 107/63, heart rate 61, respiratory rate 18, temp 97.6 F, and SpO2 of 100% on room air. CODE STATUS: Full code DVT prophylaxis: HILARY ma and SCDs Anticipated discharge date/place: Patient is medically optimized for discharge at this time. [facility] been [facility] and we are awaiting insurance authorization at this time. Patient was seen independently by Nurse Pracitioner. This document was prepared using [employer] dictation software. Please allow for errors in central office technician, while rare they do occur. Angel Andrews NP rendered care for this patient independently, reviewed the findings and plan as documented in the note above and agree with plan. I did not physically speak with or examine the patient on this date. Objective - Vital Signs Vital signs: Vital Signs Temp 97.6 F 12/26/24 07:10 Pulse 61 12/26/24 07:10 Resp 18 12/26/24 07:10 BP 107/63 12/26/24 07:10 Pulse Ox 100 12/26/24 07:10 FiO2 Intake & Output 12/25/24 12/26/24 12/26/24 18:59 06:59 18:59 Intake Total 420 Output Total 1000 1220 Balance -1000 -800 Weight 65.3 kg Intake: Oral 420 Output: Urine 1000 1220 Other: Voiding Method Urinal # Voids 2 # Bowel Movements 1 - Labs CBC & Chem 7: 12/26/24 03:31 12/26/24 03:31 Labs: Abnormal Lab Results - Last 24 Hours (Table) 12/25/24 12/25/24 12/25/24 Range/Units 02:48 09:04 09:04 RBC 3.73 L (4.30-5.90) m/uL Hgb 9.0 L (13.0-17.5) gm/dL Hct 30.3 L (39.0-53.0) % MCH 24.2 L (25.0-35.0) pg MCHC 29.7 L (31.0-37.0) g/dL RDW 21.3 H (11.5-15.5) % PT 12.9 H (9.9-11.9) sec INR 1.16 H (0.93-1.11) sec Sodium 133 L (137-145) mmol/L Chloride 95 L (98-107) mmol/L Carbon Dioxide 31 H (22-30) mmol/L Glucose 122 H (74-99) mg/dL Total Bilirubin 1.5 H (0.2-1.3) mg/dL Total Protein 5.6 L (6.3-8.2) g/dL Albumin 2.8 L (3.5-5.0) g/dL
[2024-12-26 15:49] VITALS: BMI 21.2
[2024-12-27 07:11] VITALS: RESP 18
--- NOTE | 2024-12-27 13:23 | P.DS ---
Providers Date of admission: 12/19/24 14:35 Expected date of discharge: 12/27/24 Attending physician: London Johns Primary care physician: Willie Kerr MD Hospital Course: Discharge Diagnosis: Decompensated liver cirrhosis, distended abdomen, requiring recurrent paracentesis. Patient is status post therapeutic paracentesis on 12/21/2024 with removal of 5.1 L of ascitic fluid and a repeat paracentesis on 12/25/2024 with an additional 4.6 L of fluid. Patient received albumin 25 g. Acute systolic heart failure exacerbation. Continue Aldactone 25 mg daily and Bumex 1 mg daily NSTEMI likely type II demand ischemia from CHF exacerbation. Acute on chronic hypoxic respiratory failure requiring increasing oxygen supplementation support. Resolved patient currently maintaining SpO2 on room air. Hypotension secondary to liver cirrhosis and diuresis. Continue midodrine to 5 mg 3 times daily, blood pressures been stable on current dose of midodrine. Acute on chronic anemia, anemia of chronic disease secondary to cirrhosis. S/p transfusion 1 unit PRBCs, hemoglobin stable at 8.7. Patient completed 3-day course of IV Ferrlecit and was placed on ferrous sulfate 325 mg daily. Left lower extremity wound. X-ray of the left lower extremity did not show any acute fractures Wound care evaluated recommending applying honey gel bordered foam and Jarocho wrap for compression and elevate leg above heart 3 times daily for 30 minutes. Recommend outpatient follow-up with wound care upon discharge. Hospital course: Patient is a very pleasant 59-year-old male with medical history of liver cirrhosis secondary to alcohol abuse, heart failure with reduced ejection fraction of 20 to 25%, COPD on 2 L of nasal cannula at baseline, hypertension, hyperlipidemia presented for evaluation of dyspnea. On arrival patient was afebrile, 124/73, heart rate 80 124/73, 94% on 4 L nasal cannula. CBC demonstrated hemoglobin of 7.7 with MCV of 77.5. Sodium was 130, chloride 86, CO2 37. Magnesium was 1.4. Total bilirubin is 1.5. Troponin was 0.037. BNP was 2110. Albumin was 3.0. Influenza A, B, RSV, COVID were negative. INR is 1.3. Chest x-ray showed cardiomegaly with pulmonary vascular congestion. EKG showed atrial fibrillation with aberrancy. Patient was admitted to the hospital for further management of heart failure and decompensated liver cirrhosis. Patient was seen in consultation by cardiology who recommended IV iron and ongoing diuretics. Patient was noted to have borderline blood pressure and therefore his Aldactone was held and midodrine was started. Patient underwent paracentesis on 12/21/2024 with successful removal of 5.1 L of ascitic fluid and Aldactone was restarted at lower dose. Midodrine was increased to 5 mg 3 times daily and patient's blood pressure is stable. Patient's abdomen again feeling with ascitic fluid and patient underwent repeat paracentesis on 12/25/2024 with removal of 4.6 L of ascitic fluid. Albumin was given. Patient's blood pressures remaining stable on midodrine. Patient is medically optimized for discharge at this time. He has been accepted to [facility] and insurance authorization obtained. Patient to follow-up outpatient with PCP, cardiology, gastroenterology, and wound care center. Physical exam: General: Nontoxic, no distress and appears stated age. Derm: Skin warm and dry, normal coloration for ethnicity. Head: Atraumatic, normocephalic and symmetric. Eyes: EOM's intact, no lid lag, and anicteric sclera Mouth: no lip lesions, mucus membranes moist Cardiovascular: regular rate and rhythm with normal S1S2, systolic murmur, positive posterior tibial pulses bilaterally, and cap refill < 2 seconds. Lungs: Respirations even, regular, and unlabored on room air. Lungs CTA bilaterally, no rhonchi, no rales, no wheezing, and no accessory muscle usage. Abdominal: soft distended abdomen, nontender to palpation, no guarding Ext: No gross muscle atrophy, scant lower extremity edema, no contractures. Movement and sensation intact. Neuro: Speech clear, face symmetrical and GCS 14 grossly intact with no noted focal neuro deficits. Psych:. Patient alert to person, place, and slightly confused to situation and time. A total of 35 minutes of time were spent preparing this complex discharge summary. Pt was discharged on 12/27/2024 at 1:21 PM. Patient was seen independently by Nurse Practitioner. This document was prepared using [employer] dictation software. Please allow for errors in clinical information systems director while rare they do occur. Angel Andrews NP rendered care for this patient independently, reviewed the findings and plan as documented in the note above. I did not physically speak with or examine the patient on this date.. Patient Condition at Discharge: Stable Plan - Discharge Summary Discharge Rx Participant: No New Discharge Prescriptions: New Spironolactone [Aldactone] 25 mg PO DAILY 30 Days #30 tab Ferrous Sulfate [Iron (65 MG Elemental)] 325 mg PO W/LUNCH 30 Days #30 tab Bumetanide [BUMEX] 1 mg PO DAILY 30 Days #30 tab Sacubitril/Valsartan [Entresto 24 mg-26 mg Tablet] 0.5 each PO BID 30 Days #60 tab Midodrine [ProAmatine] 5 mg PO AC-TID 30 Days #90 tab Pantoprazole [Protonix] 40 mg PO DAILY 30 Days #30 tab Continue Metoprolol Tartrate [Lopressor] 25 mg PO BID #60 tab Ergocalciferol [Vitamin D2 (1250 Mcg = 18460 Iu)] 1,250 mcg PO CELESTE Budesonide [Pulmicort] 0.5 mg INHALATION RT-BID@08,20 Melatonin 5 mg PO HS HYDROcodone/APAP 5-325MG [Frederic 5-325] 1 tab PO Q6H PRN PRN Reason: Pain Sodium Chloride [[place]] 1 spray EA NOSTRIL Q1H PRN PRN Reason: prophylaxis, pulmonary disease Apixaban [Eliquis] 5 mg PO BID #60 tab Empagliflozin [Jardiance] 10 mg PO DAILY Miconazole Nitrate 2% Powder 1 applic TOPICAL BID Lactulose 20 gm PO BID Magnesium Oxide [Magox 400] 400 mg PO DAILY Atorvastatin [Lipitor] 40 mg PO HS Ipratropium-Albuterol Nebulize [Duoneb 0.5 mg-3 mg/3 ml Soln] 3 ml INHALATION RT-QID@06,11,17, Naloxone HCl [Narcan] 4 mg NASAL ONCE PRN PRN Reason: suspected overdose Discontinued Potassium Chloride [K-Tab ER] 20 meq PO DAILY #30 tab Furosemide [Lasix] 40 mg PO BID@0600,1600 Spironolactone 50 mg PO DAILY Discharge Medication List Apixaban [Eliquis] 5 mg PO BID #60 tab 07/25/24 [Rx] Metoprolol Tartrate [Lopressor] 25 mg PO BID #60 tab 07/25/24 [Rx] Empagliflozin [Jardiance] 10 mg PO DAILY 09/30/24 [History] Ergocalciferol [Vitamin D2 (1250 Mcg = 80617 Iu)] 1,250 mcg PO CELESTE 10/06/24 [History] Atorvastatin [Lipitor] 40 mg PO HS 12/19/24 [History] Budesonide [Pulmicort] 0.5 mg INHALATION RT-BID@08,20 12/19/24 [History] HYDROcodone/APAP 5-325MG [Frederic 5-325] 1 tab PO Q6H PRN 12/19/24 [History] Ipratropium-Albuterol Nebulize [Duoneb 0.5 mg-3 mg/3 ml Soln] 3 ml INHALATION RT-QID@06,11,17,23 12/19/24 [History] Lactulose 20 gm PO BID 12/19/24 [History] Magnesium Oxide [Magox 400] 400 mg PO DAILY 12/19/24 [History] Melatonin 5 mg PO HS 12/19/24 [History] Miconazole Nitrate 2% Powder 1 applic TOPICAL BID 12/19/24 [History] Naloxone HCl [Narcan] 4 mg NASAL ONCE PRN 12/19/24 [History] Sodium Chloride [[place]] 1 spray EA NOSTRIL Q1H PRN 12/19/24 [History] Bumetanide [BUMEX] 1 mg PO DAILY 30 Days #30 tab 12/26/24 [Rx] Ferrous Sulfate [Iron (65 MG Elemental)] 325 mg PO W/LUNCH 30 Days #30 tab 12/26/24 [Rx] Midodrine [ProAmatine] 5 mg PO AC-TID 30 Days #90 tab 12/26/24 [Rx] Pantoprazole [Protonix] 40 mg PO DAILY 30 Days #30 tab 12/26/24 [Rx] Sacubitril/Valsartan [Entresto 24 mg-26 mg Tablet] 0.5 each PO BID 30 Days #60 tab 12/26/24 [Rx] Spironolactone [Aldactone] 25 mg PO DAILY 30 Days #30 tab 12/26/24 [Rx] Follow up Appointment(s)/Referral(s): Cristopher Reddy MD [Medical Doctor] - 1 Week Caron Cleveland MD [STAFF PHYSICIAN] [facility] - As Needed Willie Kerr MD [Primary Care Provider] - 1-2 days [facility] [NON-STAFF] - As Needed Patient Instructions/Handouts: Cirrhosis (DC), Ascites (DC), Paracentesis (DC) Activity/Diet/Wound Care/Special Instructions: . .Activity: As tolerated. Take breaks as needed. Diet: Heart healthy and carb consistent diet. Avoid salts, or foods with hidden salts such as canned or boxed foods and frozen dinners. Extra salt makes your heart work harder and traps the fluid in your body for longer. Special Instructions: Take all of your medications as directed and remember to keep all of your doctor's appointments and follow-up as needed. Wound care evaluated recommending applying honey gel bordered foam and Jarocho wrap for compression and elevate leg above heart 3 times daily for 30 minutes. Recommend outpatient follow-up with wound care upon discharge. Thank you for allowing us to participate in your care, it was truly a pleasure having you for our patient!!!
--- NOTE | 2024-12-27 13:32 | P.PN ---
Subjective Progress Note Date: 12/27/24 Hospital course: Patient is a very pleasant 59-year-old male with medical history of liver cirrhosis secondary to alcohol abuse, heart failure with reduced ejection fraction of 20 to 25%, COPD on 2 L of nasal cannula at baseline, hypertension, hyperlipidemia presented for evaluation of dyspnea. On arrival patient was afebrile, 124/73, heart rate 80 124/73, 94% on 4 L nasal cannula. CBC demonstrated hemoglobin of 7.7 with MCV of 77.5. Sodium was 130, chloride 86, CO2 37. Magnesium was 1.4. Total bilirubin is 1.5. Troponin was 0.037. BNP was 2110. Albumin was 3.0. Influenza A, B, RSV, COVID were negative. INR is 1.3. Chest x-ray showed cardiomegaly with pulmonary vascular congestion. EKG showed atrial fibrillation with aberrancy. Patient was admitted to the hospital for further management of heart failure and decompensated liver cirrhosis. Patient was seen in consultation by cardiology who recommended IV iron and ongoing diuretics. Patient was noted to have borderline blood pressure and therefore his Aldactone was held and midodrine was started. Patient underwent paracentesis on 12/21/2024 with successful removal of 5.1 L of ascitic fluid and Aldactone was restarted at lower dose. Midodrine was increased to 5 mg 3 times daily and patient's blood pressure is stable. Patient's abdomen again feeling with ascitic fluid and patient underwent repeat paracentesis on 12/25/2024 with removal of 4.6 L of ascitic fluid. Albumin was given. Patient's blood pressures remaining stable on midodrine. Patient is medically optimized for dis charge at this time. He has been accepted to [facility] and we are awaiting insurance authorization at this time. Physical exam: Patient seen and fully evaluated at bedside this morning. He was resting com fortably and easily awoken via verbal stimuli. He currently denies having any complaints. Patient continues to await insurance authorization for discharge to SNF, patient updated on plan of care and all questions answered at this time. General: Nontoxic, no distress and appears stated age. Derm: Skin warm and dry, normal coloration for ethnicity. Head: Atraumatic, normocephalic and symmetric. Eyes: EOM's intact, no lid lag, and anicteric sclera Mouth: no lip lesions, mucus membranes moist Cardiovascular: regular rate and rhythm with normal S1S2, systolic murmur, positive posterior tibial pulses bilaterally, and cap refill < 2 seconds. Lungs: Respirations even, regular, and unlabored on room air. Lungs CTA bilaterally, no rhonchi, no rales, no wheezing, and no accessory muscle usage. Abdominal: soft distended abdomen, nontender to palpation, no guarding Ext: No gross muscle atrophy, scant lower extremity edema, no contractures. Movement and sensation intact. Neuro: Speech clear, face symmetrical and GCS 14 grossly intact with no noted focal neuro deficits. Psych:. Patient alert to person, place, and slightly confused to situation and time. Assessment and Plan of Care: Decompensated liver cirrhosis, distended abdomen, requiring paracentesis. Acute systolic heart failure exacerbation. NSTEMI likely type II demand ischemia from CHF exacerbation Acute on chronic hypoxic respiratory failure requiring increasing oxygen supplementation support Hypotension secondary to liver cirrhosis and diuresis Acute on chronic anemia, anemia of chronic disease secondary to cirrhosis -Cardiology evaluated, discontinuing Lasix and started patient on Bumex 1 mg daily and clearing patient from cardiac perspective for drip.. -Continue to monitor I's and O's -Continue midodrine to 5 mg 3 times daily, blood pressures been stable on current dose of midodrine. -Patient is status post therapeutic paracentesis on 12/21/2024 with removal of 5.1 L of ascitic fluid and a repeat paracentesis on 12/25/2024 with an additional 4.6 L of fluid. Patient received albumin 25 g. -Continue Aldactone 25 mg daily and Bumex 1 mg daily -Cardiac diet -Patient completed 3-day course of IV Ferrlecit and was placed on ferrous sulfate 325 mg daily. -S/p transfusion 1 unit PRBCs, hemoglobin stable at 8.7. Left lower extremity wound -X-ray of the left lower extremity did not show any acute fractures -Wound care following, left lower extremity freshly wrapped -No need for antibiotics at this time Data and imaging reviewed: -Morning labs reviewed. CBC showing hemoglobin 8.7. BMP unremarkable. Blood glucose 96. Magnesium slightly low at 1.7 and liver profile unremarkable with exception of slightly elevated alkaline phosphatase of 128. Albumin remains low at 3.3. -Vital signs reviewed. Blood pressure 104/64, heart rate 62, respiratory rate 18, temp 97.4 F, and SpO2 of 96% on room air. CODE STATUS: Full code DVT prophylaxis: HILARY sosae and SCDs Anticipated discharge date/place: Patient is medically optimized for discharge at this time. [facility] and we are awaiting insurance authorization at this time. Patient was seen independently by Nurse Pracitioner. This document was prepared using [employer] dictation software. Please allow for errors in belt sewer, while rare they do occur. Angel Andrews NP rendered care for this patient independently, reviewed the findings and plan as documented in the note above and agree with plan. I did not physically speak with or examine the patient on this date. Objective - Vital Signs Vital signs: Vital Signs Temp 97.4 F L 12/27/24 06:54 Pulse 62 12/27/24 06:54 Resp 18 12/27/24 06:54 BP 104/64 12/27/24 06:54 Pulse Ox 96 12/27/24 06:54 FiO2 Intake & Output 12/26/24 12/27/24 12/27/24 18:59 06:59 18:59 Intake Total 240 Output Total 700 Balance -460 Weight 65.3 kg 63.1 kg Intake: Oral 240 Output: Urine 700 Other: Voiding Method Urinal # Voids 4 1 # Bowel Movements 0 - Labs CBC & Chem 7: 12/26/24 03:31 12/26/24 03:31 Labs: Abnormal Lab Results - Last 24 Hours (Table) 12/26/24 12/26/24 Range/Units 03:31 03:31 RBC 3.63 L (4.40-5.60) X 10*6/uL Hgb 8.7 L (13.0-17.0) g/dL Hct 29.1 L (39.6-50.0) % MCH 24.0 L (27.0-32.0) pg MCHC 29.9 L (32.0-37.0) g/dL RDW 24.3 H (11.5-14.5) % Hypochromasia (manual) 2+ A (None Seen) BUN/Creatinine Ratio 21.25 H (12.00-20.00) Ratio Alkaline Phosphatase 128 H (41-126) U/L Total Protein 5.5 L (6.2-8.2) g/dL Albumin 3.3 L (3.8-4.9) g/dL Albumin/Globulin Ratio 1.50 L (1.60-3.17) Ratio
[2024-12-27 15:22] VITALS: BP 114/71; TEMP 97.3
[2024-12-27 17:07] VITALS: PULSE 70
== END 2024-12-27 17:40 | DRG 280 ==
LOC: EC 09:57 → 1SOBS 14:35 → 3SCARD 17:05 → 4SSUR 12-24 16:02
PROVIDERS: ADMIT Student in an Organized Health Care Education/Training Program; ATTEND Student in an Organized Health Care Education/Training Program
PROC: 0W9G3ZZ Drainage of Peritoneal Cavity, Percutaneous Approach (ICD-10-PCS; principal; 2024-12-20)
PROC: 30233N1 Transfusion of Nonautologous Red Blood Cells into Peripheral Vein, Percutaneous Approach (ICD-10-PCS; 2024-12-22)
PROC: 0W9G3ZZ Drainage of Peritoneal Cavity, Percutaneous Approach (ICD-10-PCS; 2024-12-25)
DX: I11.0 Hypertensive heart disease with heart failure (principal); I50.23 Acute on chronic systolic (congestive) heart failure; I21.A1 Myocardial infarction type 2; J96.21 Acute and chronic respiratory failure with hypoxia; K70.31 Alcoholic cirrhosis of liver with ascites; E87.1 Hypo-osmolality and hyponatremia; D63.8 Anemia in other chronic diseases classified elsewhere; J44.9 Chronic obstructive pulmonary disease, unspecified; I08.1 Rheumatic disorders of both mitral and tricuspid valves; L97.822 Non-pressure chronic ulcer of other part of left lower leg with fat layer exposed; I48.0 Paroxysmal atrial fibrillation; L98.492 Non-pressure chronic ulcer of skin of other sites with fat layer exposed; D50.9 Iron deficiency anemia, unspecified; F17.210 Nicotine dependence, cigarettes, uncomplicated; Z11.52 Encounter for screening for COVID-19; I25.10 Atherosclerotic heart disease of native coronary artery without angina pectoris; E78.5 Hyperlipidemia, unspecified; F41.9 Anxiety disorder, unspecified; I25.5 Ischemic cardiomyopathy; I95.89 Other hypotension; I87.302 Chronic venous hypertension (idiopathic) without complications of left lower extremity; T50.1X5A Adverse effect of loop [high-ceiling] diuretics, initial encounter; Z79.01 Long term (current) use of anticoagulants; I25.2 Old myocardial infarction; I95.9 Hypotension, unspecified; Z79.84 Long term (current) use of oral hypoglycemic drugs; Z79.899 Other long term (current) drug therapy; Z95.1 Presence of aortocoronary bypass graft; Z95.810 Presence of automatic (implantable) cardiac defibrillator; X58.XXXA Exposure to other specified factors, initial encounter
CPT/HCPCS: 36415; 49083; 71046; 76705; 80048; 80053; 80076; 83605; 83690; 83735; 83880; 84100; 84484; 85025; 85027; 85610; 85730; 86850; 86900; 86901; 86920; 87636; 93005; 94640; 94760; 96365; 96366; 96367; 96375; 99285

== ENCOUNTER 2024-12-31 17:03 | Inpatient (IN) | payer MEDICARE, OTHER ==
[2024-12-31 18:22] LABS: Glucose,Whole Blood 105 mg/dL (70-110)
--- NOTE | 2024-12-31 18:22 | ED ---
Altered Mental Status HPI - General Chief Complaint: Altered Mental Status Stated Complaint: Weakness Time Seen by Provider: 12/31/24 17:20 Source: EMS Mode of arrival: EMS Limitations: altered mental status - History of Present Illness Initial Comments: 59-year-old male with past medical history of liver disease, A-fib, congestive heart failure who presents to the emergency department from [facility]. They state that the patient awoke this morning and was his normal self. He went outside to have a cigarette and fed himself breakfast. By lunchtime the patient was having difficulty feeding himself and by dinnertime the patient was significantly far from his baseline. They state is normally ANO to self however he is usually able to feed himself. They called the on-call doctor who recommended that he be transferred to hospital for evaluation. Upon my evaluation the patient cannot provide much history. He denies any pain. It does appear the patient has been receiving his medications including his lactulose. Due to the patient's current mental status HPI is limited - Related Data Home Medications Medication Instructions Recorded Confirmed Empagliflozin [Jardiance] 10 mg PO DAILY 09/30/24 12/31/24 Ergocalciferol [Vitamin D2 (1250 1,250 mcg PO CELESTE 10/06/24 12/31/24 Mcg = 20156 Iu)] Atorvastatin [Lipitor] 40 mg PO HS 12/19/24 12/31/24 Budesonide [Pulmicort] 0.5 mg INHALATION RT-BID 12/19/24 12/31/24 Ipratropium-Albuterol Nebulize 3 ml INHALATION RT-QID@05,11,17,23 12/19/24 12/31/24 [Duoneb 0.5 mg-3 mg/3 ml Soln] Lactulose 20 gm PO BID 12/19/24 12/31/24 Magnesium Oxide [Magox 400] 400 mg PO DAILY 12/19/24 12/31/24 Melatonin 5 mg PO HS 12/19/24 12/31/24 Miconazole Nitrate 2% Powder 1 applic TOPICAL BID 12/19/24 12/31/24 Naloxone HCl [Narcan] 4 mg NASAL ONCE PRN 12/19/24 12/31/24 Sodium Chloride [[place]] 1 spray EA NOSTRIL Q1H PRN 12/19/24 12/31/24 Apixaban [Eliquis] 5 mg PO BID@0700,1900 12/31/24 12/31/24 Ferrous Sulfate [Iron (65 MG 325 mg PO DAILY 12/31/24 12/31/24 Elemental)] Midodrine [ProAmatine] 5 mg PO TID@0700,1300,1900 12/31/24 12/31/24 Omeprazole 20 mg PO DAILY 12/31/24 12/31/24 Sacubitril/Valsartan [Entresto 24 0.5 tab PO BID 12/31/24 12/31/24 mg-26 mg Tablet] Previous Rx's Medication Instructions Recorded Metoprolol Tartrate [Lopressor] 25 mg PO BID #60 tab 07/25/24 Bumetanide [BUMEX] 1 mg PO DAILY 30 Days #30 tab 12/26/24 Spironolactone [Aldactone] 25 mg PO DAILY 30 Days #30 tab 12/26/24 HYDROcodone/APAP 5-325MG [[place] 1 tab PO Q6H PRN #8 tab 12/27/24 5-325] Allergies Allergy/AdvReac Type Severity Reaction Status Date / Time chloroxine [From Capitrol] AdvReac Rash/Hives Verified 12/31/24 18:55 Review of Systems ROS Statement: Those systems with pertinent positive or pertinent negative responses have been documented in the HPI. ROS Other: All systems not noted in ROS Statement are negative. Past Medical History Past Medical History: Atrial Fibrillation, Coronary Artery Disease (CAD), Chest Pain / Angina, Heart Failure, COPD, Hypertension, Liver Disease, Myocardial Infarction (IN), Respiratory Disorder, Syncope Additional Past Medical History / Comment(s): Home oxygen use@2-3L PRN COPD - says has oxygen at home but doesn't wear it, IN- patient reports having 3-4 IN's, + CABG -triple bypass scar, + AICD/PCCM "I have a machine inside that sends all the info to my heart doctor" , Abdominal Hernia surgery x2, paracentesis as needed- last times was at [facility] about 4 months ago per patient Last Myocardial Infarction Date:: 1992 History of Any Multi-Drug Resistant Organisms: None Reported Past Surgical History: AICD, Cholecystectomy, Coronary Bypass/CABG, Heart Catheterization With Stent, Hernia Repair, Pacemaker Additional Past Surgical History / Comment(s): CABG, AICD/Pacemaker placed about 10 years ago, Hernia repair abdominal x2 Past Anesthesia/Blood Transfusion Reactions: No Reported Reaction Date of Last Stent Placement:: 1992 Type of Cardiac Device: Permanent Pacemaker, AICD Device Placement Date:: 1992 Past Psychological History: Anxiety Smoking Status: Current every day smoker Past Alcohol Use History: None Reported, Occasional Past Drug Use History: Marijuana - Past Family History Mother Family Medical History: Cancer Father Family Medical History: Cancer General Exam Limitations: altered mental status General appearance: lethargic Head exam: Present: atraumatic, normocephalic, normal inspection Eye exam: Present: other (Patient has yellow drainage from both eyes) ENT exam: Present: mucous membranes dry Respiratory exam: Present: normal lung sounds bilaterally. Absent: respiratory distress, wheezes, rales, rhonchi, stridor Cardiovascular Exam: Present: regular rate, normal rhythm, normal heart sounds. Absent: systolic murmur, diastolic murmur, rubs, gallop, clicks GI/Abdominal exam: Present: soft, normal bowel sounds. Absent: distended, tenderness, guarding, rebound, rigid Extremities exam: Present: normal inspection, full ROM, normal capillary refill. Absent: tenderness, pedal edema, joint swelling, calf tenderness Psychiatric exam: Present: flat affect Course Vital Signs 12/31/24 12/31/24 12/31/24 17:15 18:37 20:50 Temperature 98.1 F 98.1 F Pulse Rate 60 74 76 Respiratory 18 18 Rate Blood Pressure 107/60 118/67 O2 Sat by Pulse 95 97 Oximetry 12/31/24 12/31/24 01/01/25 20:55 20:57 00:22 Temperature Pulse Rate 80 78 82 Respiratory 16 16 Rate Blood Pressure 118/69 130/80 O2 Sat by Pulse 94 L 98 Oximetry 01/01/25 01/01/25 01/01/25 02:15 04:08 06:52 Temperature 97.8 F Pulse Rate 72 73 88 Respiratory 16 18 20 Rate Blood Pressure 126/72 109/66 123/62 O2 Sat by Pulse 93 L 97 98 Oximetry 01/01/25 01/01/25 01/01/25 07:30 08:38 08:46 Temperature 98 F Pulse Rate 85 76 79 Respiratory 16 Rate Blood Pressure 96/44 O2 Sat by Pulse 96 Oximetry 01/01/25 01/01/25 01/01/25 10:51 11:40 11:44 Temperature 97.9 F Pulse Rate 70 76 68 Respiratory 20 16 Rate Blood Pressure 103/63 103/69 O2 Sat by Pulse 97 98 Oximetry 01/01/25 01/01/25 01/01/25 11:46 14:00 15:00 Temperature Pulse Rate 77 58 L 78 Respiratory 20 20 Rate Blood Pressure 116/74 120/0 O2 Sat by Pulse 95 96 Oximetry 01/01/25 01/01/25 01/01/25 15:39 15:45 15:53 Temperature Pulse Rate 74 76 65 Respiratory 16 Rate Blood Pressure 108/65 O2 Sat by Pulse 96 Oximetry 01/01/25 01/01/25 01/01/25 17:35 19:44 20:22 Temperature 98.2 F Pulse Rate 80 76 75 Respiratory 16 18 Rate Blood Pressure 124/69 83/50 O2 Sat by Pulse 98 99 Oximetry 01/01/25 01/01/25 20:39 22:42 Temperature Pulse Rate 78 80 Respiratory 16 Rate Blood Pressure 99/56 O2 Sat by Pulse 95 Oximetry Medical Decision Making - Medical Decision Making Was pt. sent in by a medical professional or institution (, PA, AUDIT CONTROL CLERK, urgent care, hospital, or senior living...) When possible be specific @ -Patient was sent in from his nursing facility Did you speak to anyone other than the patient for history (EMS, parent, family, police, friend...)? What history was obtained from this source @ -Spoke with EMS for history Did you review nursing and triage notes (agree or disagree)? Why? @ -I reviewed and agree with nursing and triage notes Were old charts reviewed (outside hosp., previous admission, EMS record, old EKG, old radiological studies, urgent care reports/EKG's, senior living records)? Report findings @ -I reviewed the transfer packet that was sent with the patient from [facility] Differential Diagnosis (chest pain, altered mental status, abdominal pain women, abdominal pain men, vaginal bleeding, weakness, fever, dyspnea, syncope, h eadache, dizziness, GI bleed, back pain, seizure, CVA, palpatations, mental health, musculoskeletal)? @ -Differential Altered Mental Status: Hypoglycemia, DKA, hypercapnia, ETOH, overdose, CO poisoning, trauma, myxedema coma, HTN encephalopathy, infection, encephalitis, psychosis, intercranial hem orrhage, hepatic encephalopathy, meningitis, CVA, this is not meant to be an all-inclusive list EKG interpreted by me (3pts min.). @ -Yes and demonstrates sinus rhythm with a rate of 71. QRS 103. QTc of 421. ST depression V3 through V6 X-rays interpreted by me (1pt min.). @ -Yes which demonstrates no acute process CT interpreted by me (1pt min.). @ -Yes which demonstrates no acute process U/S interpreted by me (1pt. min.). @ -None done What testing was considered but not performed or refused? (CT, X-rays, U/S, labs)? Why? @ -None What meds were considered but not given or refused? Why? @ -None Did you discuss the management of the patient with other professionals (professionals i.e. , PA, AUDIT CONTROL CLERK, lab, RT, psych nurse, social sciences research scientist, program aide group work, teacher, corporate banking officer, egg caser)? Give summary @ -Spoke with Dr. andrade for admission Was smoking cessation discussed for >3mins.? @ -No Was critical care preformed (if so, how long)? @ -No Were there social determinants of health that impacted care today? How? (Homelessness, low income, unemployed, alcoholism, drug addiction, trans portation, low edu. Level, literacy, decrease access to med. care, half-way, rehab)? @ -Patient currently lives in rehab Was there de-escalation of care discussed even if they declined (Discuss DNR or withdrawal of care, Hospice)? DNR status @ -No What co-morbidities impacted this encounter? (DM, HTN, Smoking, COPD, CAD, Cancer, CVA, ARF, Chemo, Hep., AIDS, mental health diagnosis, sleep apnea, morb id obesity)? @ -Liver failure Was patient admitted / discharged? Hospital course, mention meds given and route, prescriptions, significant lab abnormalities, going to OR and other pertinent info. @ -Upon arrival patient seen and evaluated in bed 21. Thorough history and physical exam was performed. Patient cannot provide much history. He does answer yes and no to selective questions. IV was established. Laboratory studies are conducted. Ammonia is significantly elevated at this time. Chest x-ray and CT of the brain are obtained as the patient is on anticoagulation. Results are discussed with patient. NG tube is placed with administration of lactulose. Patient will be admitted for repeat ammonia level in the morning. Spoke with Dr. Andrade for the admission Undiagnosed new problem with uncertain prognosis? @ -No Drug Therapy requiring intensive monitoring for toxicity (Heparin, Nitro, Insulin, Cardizem)? @ -No Were any procedures done? @ -No Diagnosis/symptom? @ -Acute encephalopathy, hyperammonemia, history of liver disease Acute, or Chronic, or Acute on Chronic? @ -Acute Uncomplicated (without systemic symptoms) or Complicated (systemic symptoms)? @ -Complicated Side effects of treatment? @ -No Exacerbation, Progression, or Severe Exacerbation? @ -No Poses a threat to life or bodily function? How? (Chest pain, [place], IN, pneumonia, PE, COPD, DKA, ARF, appy, cholecystitis, CVA, Diverticulitis, Homicidal, Suicidal, threat to staff... and all critical care pts) @ -Yes this patient is altered from baseline at this time - Lab Data Result diagrams: 01/01/25 07:42 01/01/25 07:42 Lab Results 12/31/24 12/31/24 12/31/24 Range/Units 18:19 18:21 18:24 WBC 5.6 (3.8-10.6) k/uL RBC 3.96 L (4.30-5.90) m/uL Hgb 9.6 L (13.0-17.5) gm/dL Hct 32.6 L (39.0-53.0) % MCV 82.3 (80.0-100.0) fL MCH 24.3 L (25.0-35.0) pg MCHC 29.5 L (31.0-37.0) g/dL RDW 25.2 H (11.5-15.5) % Plt Count 190 (150-450) k/uL MPV 9.5 Neutrophils % Not Reportable Neutrophils % (Manual) 67 % Lymphocytes % Not Reportable Lymphocytes % (Manual) 23 % Monocytes % Not Reportable Monocytes % (Manual) 6 % Eosinophils % Not Reportable Eosinophils % (Manual) 4 % Basophils % Not Reportable Neutrophils # Not Reportable Neutrophils # (Manual) 3.75 (1.3-7.7) k/uL Lymphocytes # Not Reportable Lymphocytes # (Manual) 1.29 (1.0-4.8) k/uL Monocytes # Not Reportable Monocytes # (Manual) 0.34 (0-1.0) k/uL Eosinophils # Not Reportable Eosinophils # (Manual) 0.22 (0-0.7) k/uL Basophils # Not Reportable Nucleated RBCs 0 (0-0) /100 WBC Manual Slide Review Performed Hypochromasia Marked Poikilocytosis Slight Anisocytosis Marked Microcytosis Slight PT (10.0-12.5) sec INR (<1.2) APTT (22.0-30.0) sec VBG pH (7.31-7.41) VBG pCO2 (37-51) mmHg VBG HCO3 (24-28) mmol/L Sodium (137-145) mmol/L Potassium (3.5-5.1) mmol/L Chloride (98-107) mmol/L Carbon Dioxide (22-30) mmol/L Anion Gap mmol/L BUN (9-20) mg/dL Creatinine (0.66-1.25) mg/dL Est GFR (CKD-EPI)AfAm (>60 ml/min/1.73 sqM) Est GFR (CKD-EPI)NonAf (>60 ml/min/1.73 sqM) Glucose (74-99) mg/dL POC Glucose (mg/dL) 105 (70-110) mg/dL POC Glu Home Health Specialist ID Nathaniel Diana Calcium (8.4-10.2) mg/dL Total Bilirubin (0.2-1.3) mg/dL AST (17-59) U/L ALT (4-49) U/L Alkaline Phosphatase (38-126) U/L Ammonia 123 H (<30) umol/L Troponin I (0.000-0.034) ng/mL NT-Pro-B Natriuret Pep pg/mL Total Protein (6.3-8.2) g/dL Albumin (3.5-5.0) g/dL Urine Color Urine Appearance (Clear) Urine pH (5.0-8.0) Ur Specific [place] (1.001-1.035) Urine Protein (Negative) Urine Glucose (UA) (Negative) Urine Ketones (Negative) Urine Blood (Negative) Urine Nitrite (Negative) Urine Bilirubin (Negative) Urine Urobilinogen (<2.0) mg/dL Ur Leukocyte Esterase (Negative) Urine RBC (0-5) /hpf Urine WBC (0-5) /hpf Ur Squamous Epith Cells (0-4) /hpf Urine Bacteria (None) /hpf Influenza Type A (PCR) (Not Detectd) Influenza Type B (PCR) (Not Detectd) RSV (PCR) (Not Detectd) SARS-CoV-2 (PCR) (Not Detectd) 12/31/24 12/31/24 12/31/24 Range/Units 18:24 18:24 18:24 WBC (3.8-10.6) k/uL RBC (4.30-5.90) m/uL Hgb (13.0-17.5) gm/dL Hct (39.0-53.0) % MCV (80.0-100.0) fL MCH (25.0-35.0) pg MCHC (31.0-37.0) g/dL RDW (11.5-15.5) % Plt Count (150-450) k/uL MPV Neutrophils % Neutrophils % (Manual) % Lymphocytes % Lymphocytes % (Manual) % Monocytes % Monocytes % (Manual) % Eosinophils % Eosinophils % (Manual) % Basophils % Neutrophils # Neutrophils # (Manual) (1.3-7.7) k/uL Lymphocytes # Lymphocytes # (Manual) (1.0-4.8) k/uL Monocytes # Monocytes # (Manual) (0-1.0) k/uL Eosinophils # Eosinophils # (Manual) (0-0.7) k/uL Basophils # Nucleated RBCs (0-0) /100 WBC Manual Slide Review Hypochromasia Poikilocytosis Anisocytosis Microcytosis PT 13.8 H (10.0-12.5) sec INR 1.3 H (<1.2) APTT 30.9 H (22.0-30.0) sec VBG pH (7.31-7.41) VBG pCO2 (37-51) mmHg VBG HCO3 (24-28) mmol/L Sodium 132 L (137-145) mmol/L Potassium 4.8 (3.5-5.1) mmol/L Chloride 97 L (98-107) mmol/L Carbon Dioxide 26 (22-30) mmol/L Anion Gap 9 mmol/L BUN 22 H (9-20) mg/dL Creatinine 0.83 (0.66-1.25) mg/dL Est GFR (CKD-EPI)AfAm >90 (>60 ml/min/1.73 sqM) Est GFR (CKD-EPI)NonAf >90 (>60 ml/min/1.73 sqM) Glucose 89 (74-99) mg/dL POC Glucose (mg/dL) (70-110) mg/dL POC Glu Home Health Specialist ID Calcium 9.4 (8.4-10.2) mg/dL Total Bilirubin 1.4 H (0.2-1.3) mg/dL AST 35 (17-59) U/L ALT 23 (4-49) U/L Alkaline Phosphatase 122 (38-126) U/L Ammonia (<30) umol/L Troponin I 0.040 H* (0.000-0.034) ng/mL NT-Pro-B Natriuret Pep pg/mL Total Protein 6.2 L (6.3-8.2) g/dL Albumin 3.1 L (3.5-5.0) g/dL Urine Color Urine Appearance (Clear) Urine pH (5.0-8.0) Ur Specific [place] (1.001-1.035) Urine Protein (Negative) Urine Glucose (UA) (Negative) Urine Ketones (Negative) Urine Blood (Negative) Urine Nitrite (Negative) Urine Bilirubin (Negative) Urine Urobilinogen (<2.0) mg/dL Ur Leukocyte Esterase (Negative) Urine RBC (0-5) /hpf Urine WBC (0-5) /hpf Ur Squamous Epith Cells (0-4) /hpf Urine Bacteria (None) /hpf Influenza Type A (PCR) (Not Detectd) Influenza Type B (PCR) (Not Detectd) RSV (PCR) (Not Detectd) SARS-CoV-2 (PCR) (Not Detectd) 12/31/24 12/31/24 12/31/24 Range/Units 18:24 18:24 18:24 WBC (3.8-10.6) k/uL RBC (4.30-5.90) m/uL Hgb (13.0-17.5) gm/dL Hct (39.0-53.0) % MCV (80.0-100.0) fL MCH (25.0-35.0) pg MCHC (31.0-37.0) g/dL RDW (11.5-15.5) % Plt Count (150-450) k/uL MPV Neutrophils % Neutrophils % (Manual) % Lymphocytes % Lymphocytes % (Manual) % Monocytes % Monocytes % (Manual) % Eosinophils % Eosinophils % (Manual) % Basophils % Neutrophils # Neutrophils # (Manual) (1.3-7.7) k/uL Lymphocytes # Lymphocytes # (Manual) (1.0-4.8) k/uL Monocytes # Monocytes # (Manual) (0-1.0) k/uL Eosinophils # Eosinophils # (Manual) (0-0.7) k/uL Basophils # Nucleated RBCs (0-0) /100 WBC Manual Slide Review Hypochromasia Poikilocytosis Anisocytosis Microcytosis PT (10.0-12.5) sec INR (<1.2) APTT (22.0-30.0) sec VBG pH 7.51 H (7.31-7.41) VBG pCO2 33 L (37-51) mmHg VBG HCO3 26 (24-28) mmol/L Sodium (137-145) mmol/L Potassium (3.5-5.1) mmol/L Chloride (98-107) mmol/L Carbon Dioxide (22-30) mmol/L Anion Gap mmol/L BUN (9-20) mg/dL Creatinine (0.66-1.25) mg/dL Est GFR (CKD-EPI)AfAm (>60 ml/min/1.73 sqM) Est GFR (CKD-EPI)NonAf (>60 ml/min/1.73 sqM) Glucose (74-99) mg/dL POC Glucose (mg/dL) (70-110) mg/dL POC Glu Home Health Specialist ID Calcium (8.4-10.2) mg/dL Total Bilirubin (0.2-1.3) mg/dL AST (17-59) U/L ALT (4-49) U/L Alkaline Phosphatase (38-126) U/L Ammonia (<30) umol/L Troponin I (0.000-0.034) ng/mL NT-Pro-B Natriuret Pep 1000 pg/mL Total Protein (6.3-8.2) g/dL Albumin (3.5-5.0) g/dL Urine Color Urine Appearance (Clear) Urine pH (5.0-8.0) Ur Specific [place] (1.001-1.035) Urine Protein (Negative) Urine Glucose (UA) (Negative) Urine Ketones (Negative) Urine Blood (Negative) Urine Nitrite (Negative) Urine Bilirubin (Negative) Urine Urobilinogen (<2.0) mg/dL Ur Leukocyte Esterase (Negative) Urine RBC (0-5) /hpf Urine WBC (0-5) /hpf Ur Squamous Epith Cells (0-4) /hpf Urine Bacteria (None) /hpf Influenza Type A (PCR) Not Detected (Not Detectd) Influenza Type B (PCR) Not Detected (Not Detectd) RSV (PCR) Not Detected (Not Detectd) SARS-CoV-2 (PCR) Not Detected (Not Detectd) 12/31/24 Range/Units 18:37 WBC (3.8-10.6) k/uL RBC (4.30-5.90) m/uL Hgb (13.0-17.5) gm/dL Hct (39.0-53.0) % MCV (80.0-100.0) fL MCH (25.0-35.0) pg MCHC (31.0-37.0) g/dL RDW (11.5-15.5) % Plt Count (150-450) k/uL MPV Neutrophils % Neutrophils % (Manual) % Lymphocytes % Lymphocytes % (Manual) % Monocytes % Monocytes % (Manual) % Eosinophils % Eosinophils % (Manual) % Basophils % Neutrophils # Neutrophils # (Manual) (1.3-7.7) k/uL Lymphocytes # Lymphocytes # (Manual) (1.0-4.8) k/uL Monocytes # Monocytes # (Manual) (0-1.0) k/uL Eosinophils # Eosinophils # (Manual) (0-0.7) k/uL Basophils # Nucleated RBCs (0-0) /100 WBC Manual Slide Review Hypochromasia Poikilocytosis Anisocytosis Microcytosis PT (10.0-12.5) sec INR (<1.2) APTT (22.0-30.0) sec VBG pH (7.31-7.41) VBG pCO2 (37-51) mmHg VBG HCO3 (24-28) mmol/L Sodium (137-145) mmol/L Potassium (3.5-5.1) mmol/L Chloride (98-107) mmol/L Carbon Dioxide (22-30) mmol/L Anion Gap mmol/L BUN (9-20) mg/dL Creatinine (0.66-1.25) mg/dL Est GFR (CKD-EPI)AfAm (>60 ml/min/1.73 sqM) Est GFR (CKD-EPI)NonAf (>60 ml/min/1.73 sqM) Glucose (74-99) mg/dL POC Glucose (mg/dL) (70-110) mg/dL POC Glu Home Health Specialist ID Calcium (8.4-10.2) mg/dL Total Bilirubin (0.2-1.3) mg/dL AST (17-59) U/L ALT (4-49) U/L Alkaline Phosphatase (38-126) U/L Ammonia (<30) umol/L Troponin I (0.000-0.034) ng/mL NT-Pro-B Natriuret Pep pg/mL Total Protein (6.3-8.2) g/dL Albumin (3.5-5.0) g/dL Urine Color Colorless Urine Appearance Clear (Clear) Urine pH 7.5 (5.0-8.0) Ur Specific [place] 1.009 (1.001-1.035) Urine Protein Negative (Negative) Urine Glucose (UA) 2+ H (Negative) Urine Ketones Negative (Negative) Urine Blood Negative (Negative) Urine Nitrite Negative (Negative) Urine Bilirubin Negative (Negative) Urine Urobilinogen <2.0 (<2.0) mg/dL Ur Leukocyte Esterase Small H (Negative) Urine RBC 1 (0-5) /hpf Urine WBC 18 H (0-5) /hpf Ur Squamous Epith Cells <1 (0-4) /hpf Urine Bacteria Rare H (None) /hpf Influenza Type A (PCR) (Not Detectd) Influenza Type B (PCR) (Not Detectd) RSV (PCR) (Not Detectd) SARS-CoV-2 (PCR) (Not Detectd) Disposition Clinical Impression: Hyperammonemia, Acute encephalopathy, Acute exacerbation of CHF (congestive heart failure), Elevated troponin Disposition: ADMITTED IP TO THIS HOSP Condition: Stable Is patient prescribed a controlled substance at d/c from ED?: No Time of Disposition: 19:39 Decision to Admit Reason: Admit from EC Decision Date: 12/31/24 Decision Time: 19:39
[2024-12-31 18:28] LABS: VBG PH 7.51 (7.31-7.41)
[2024-12-31 18:30] LABS: Anisocytosis Marked; HCT 32.6 % (39.0-53.0); HGB 9.6 gm/dL (13.0-17.5); Hypochromasia Marked; MCH 24.3 pg (25.0-35.0); MCHC 29.5 g/dL (31.0-37.0); MCV 82.3 fL (80.0-100.0); Mean Platelet Volume 9.5; Microcytosis Slight; Platelet Count 190 k/uL (150-450); Poikilocytosis Slight; RBC 3.96 m/uL (4.30-5.90); WBC 5.6 k/uL (3.8-10.6)
[2024-12-31 18:39] LABS: ALT 23 U/L (4-49); AST 35 U/L (17-59); African American GFR (CKD) >90 (>60 ml/min/1.73 sqM); Albumin 3.1 g/dL (3.5-5.0); Alkaline Phosphatase 122 U/L (38-126); Anion Gap 9 mmol/L; Blood Urea Nitrogen 22 mg/dL (9-20); Calcium 9.4 mg/dL (8.4-10.2); Carbon Dioxide 26 mmol/L (22-30); Chloride 97 mmol/L (98-107); Glucose 89 mg/dL (74-99); Non-African American GFR(CKD) >90 (>60 ml/min/1.73 sqM); Potassium 4.8 mmol/L (3.5-5.1); Sodium 132 mmol/L (137-145); Total Bilirubin 1.4 mg/dL (0.2-1.3); Total Protein 6.2 g/dL (6.3-8.2)
[2024-12-31 18:40] LABS: INR 1.3 (<1.2); Partial Thromboplastin Time 30.9 sec (22.0-30.0); Prothrombin Time 13.8 sec (10.0-12.5)
[2024-12-31 18:47] LABS: RDW 25.2 % (11.5-15.5)
[2024-12-31 18:54] LABS: Appearance,Urine Clear (Clear); Bacteria,Urine Rare /hpf; Bilirubin,Urine Negative (Negative); Blood,Urine Negative (Negative); Color,Urine Colorless; Glucose,Urine (UA) 2+ (Negative); Ketones,Urine Negative (Negative); Leukocyte Esterase,Urine Small (Negative); Nitrite,Urine Negative (Negative); PH, Urine 7.5 (5.0-8.0); Protein,Urine Negative (Negative); RBC,Urine 1 /hpf (0-5); Specific Gravity,Urine 1.009 (1.001-1.035); Squamous Epithelial Cell,Urine <1 /hpf (0-4); Urobilinogen,Urine <2.0 mg/dL (<2.0); WBC,Urine 18 /hpf (0-5)
[2024-12-31 19:06] LABS: Eosinophils # (M) 0.22 k/uL (0-0.7); Influenza A Not Detected (Not Detectd); Influenza B Not Detected (Not Detectd); Lymphocytes # (M) 1.29 k/uL (1.0-4.8); Monocytes # (M) 0.34 k/uL (0-1.0); Neutrophils # (M) 3.75 k/uL (1.3-7.7); Neutrophils % (M) 67 %; Nucleated Red Blood Cells 0 /100 WBC (0-0); RSV Not Detected (Not Detectd); Total Cells Counted 100
--- NOTE | 2024-12-31 19:11 | XR ---
EXAMINATION TYPE: XR chest 2V DATE OF EXAM: 12/31/2024 6:54 PM COMPARISON: Chest radiographs from 12/19/2024 CLINICAL INDICATION: Male, 59 years old with history of altered mental status; [facility] TECHNIQUE: XR chest 2V Frontal and lateral views of the chest. FINDINGS: Lungs/Pleura: There is no evidence of pleural effusion, focal consolidation, or pneumothorax. Pulmonary vascularity: Unremarkable. Heart/mediastinum: Cardiomediastinal silhouette is unremarkable. Three lead cardiac conduction device overlying the left hemithorax with lead tips projecting over the right ventricle, right atrium and c oronary sinus. Musculoskeletal: No acute osseous pathology. Midline sternotomy wires are noted. Other findings: None IMPRESSION: Cardiomegaly, pulmonary vascular congestion and bilateral pleural effusions. Correlate with BNP for c ongestive heart failure. [facility], , 12/31/2024 7:09 PM
--- NOTE | 2024-12-31 19:18 | CT ---
EXAMINATION TYPE: CT brain wo con DATE OF EXAM: 12/31/2024 6:59 PM COMPARISON: 10/05/2024. CLINICAL INDICATION: Male, 59 years old with history of Altered mental status, AMS. TECHNIQUE: Brain: Axial CT images of the brain were obtained with coronal and sagittal reformats created and rev iewed. Contrast used: None. Oral contrast used: None. CT DLP: 1098.4 mGycm, Automated exposure control for dose reduction was used. FINDINGS: Brain: Extra-axial spaces: No abnormal extra-axial fluid collections. Ventricular system: Within normal limits Cerebral parenchyma: No acute intraparenchymal hemorrhage or mass effect. The salazar-white junction is well differentiated. Scattered hypoattenuating areas are seen within the white matter. Cerebellum: Unremarkable. Mass effect: No evidence of midline shift. Intracranial vasculature: unremarkable Soft tissues: Normal. Calvarium/osseous structures: No depressed skull fracture. Paranasal sinuses and mastoid air cells: Mild scattered paranasal sinus disease. Visualized orbits: Orbital contents are intact. IMPRESSION: 1. No acute intracranial process. 2. Nonspecific white matter changes, similar to prior [facility], , 12/31/2024 7:16 PM
[2024-12-31] MEDS ORDERED: NALOXONE 0.4 MG/ML 1 ML VIAL IV PRN (19:39)
--- NOTE | 2024-12-31 20:41 | XR ---
EXAMINATION TYPE: XR chest 1V portable DATE OF EXAM: 12/31/2024 8:34 PM COMPARISON: Chest radiographs from 12/31/2024 CLINICAL INDICATION: Male, 59 years old with history of NG tube confirmation; [facility] TECHNIQUE: XR chest 1V portable Frontal view of the chest. FINDINGS: Lungs/Pleura: There is no evidence of pleural effusion, focal consolidation, or pneumothorax. Pulmonary vascularity: Unremarkable. Heart/mediastinum: Cardiomediastinal silhouette is unremarkable. Atherosclerotic calcifications are seen in the aorta. Three lead cardiac conduction device overlying the left hemithorax with lead tips projecting over the right ventricle, right atrium and coronary sinus. Musculoskeletal: No acute osseous pathology. Midline sternotomy wires are noted. Other findings: Retained metallic densities project of the right shoulder similar to prior Lines/Tubes: Nasogastric tube with its distal tip and side-port projecting under the diaphragm. IMPRESSION: Nasogastric tube in appropriate placement. The remainder of exam is unchanged from prior. [facility], , 12/31/2024 8:39 PM
[2024-12-31] MEDS: BUDESONIDE 0.5 MG/2 ML NEBU INHALATION SCH (20:48)
[2024-12-31] MEDS: IPRATROPIUM-ALBUTEROL 3 ML NEB INHALATION PRN (20:48)
[2024-12-31] MEDS: LACTULOSE 20 GM/30 ML CUP PO ONE (20:58)
[2024-12-31] MEDS: SACUBITRIL/VALSARTAN 24 MG-26 MG TABLET PO SCH (21:27)
[2024-12-31] MEDS: LACTULOSE 20 GM/30 ML CUP PO SCH (21:27)
[2024-12-31] MEDS: ATORVASTATIN 40 MG TAB PO SCH (21:27)
[2024-12-31] MEDS: METOPROLOL TARTRATE 25 MG TAB PO SCH (21:27)
[2024-12-31] MEDS ORDERED: IPRATROPIUM-ALBUTEROL 3 ML NEB INHALATION SCH (23:00)
--- NOTE | 2024-12-31 23:23 | HP ---
HISTORY AND PHYSICAL CHIEF COMPLAINT: Change in mental status and weakness. HISTORY OF PRESENT ILLNESS: This 59-year-old gentleman with a past medical history of atrial fibrillation, history of CHF, history of liver disease, who is a resident [facility], who was admitted with weakness and confusion. The patient was found to have multiple abnormalities including a hyperammonemia with ammonia of 123 and confusion and troponin is elevated at 0.040. The chest x-ray showed some CHF with right hilar prominence also. The patient is unable to give a coherent history. . Most of the history is taken by discussion with the staff and review of the chart at this time. PAST MEDICAL HISTORY: Reviewed as before, CAD, liver disease, hypertension, and COPD. Rest of the history and rest of the chart is also reviewed. HOME MEDICATIONS: Reviewed and includes Naloxone. Dose and rest of medications reviewed. ALLERGIES: ntd. FAMILY HISTORY: Could not be taken. SOCIAL HISTORY: Could not be taken. REVIEW OF SYSTEMS: Could not be taken. PHYSICAL EXAMINATION: VITAL SIGNS: Pulse is 80, blood pressure 118/69, respirations 16. HEENT: Conjunctivae normal. Oral mucosa dry. NECK: No JVD. CARDIOVASCULAR: S1 and S2. RESPIRATIONS: A few scattered rhonchi. ABDOMEN: Soft and obese. Varices present. LEGS: No edema. No swelling. NERVOUS SYSTEM: Diffusely weak right more than the left. SKIN: No ulcer, rash, or bleeding. LABORATORY DATA: Ammonia noted. Troponin noted. Otherwise, CT of the brain showed no acute abnormality. ASSESSMENT: 1. Change in mental status and possible acute on chronic hepatic encephalopathy with hyperammonemia. 2. Congestive heart failure, possibly. 3. Troponin elevated up to 0.040. Rule out acute myocardial infarction. 4. Atrial fibrillation. 5. Coronary artery disease. 6. Chronic obstructive pulmonary disease. 7. Hypertension. 8. History of coronary artery bypass graft. 9. History of cholecystectomy. 10.History of automatic implantable cardioverter-defibrillator. 11.History of nicotine dependence. RECOMMENDATIONS AND DISCUSSION: This 59-year-old gentleman presented with multiple complex medical issues. We will monitor the patient closely. Recommended an NG tube insertion as well as lactulose. Monitor ammonia closely. Cardiology consultation. Monitor fluid-electrolyte balance closely. Avoid hepatotoxic medications and medications causing confusion. Otherwise, we will continue to monitor. Guarded prognosis. Further recommendations to follow. See orders for further details. MMODL / IJN: [id number] / AMAIRANI
[2025-01-01] MEDS: PANTOPRAZOLE 40 MG TABLET PO SCH (07:24)
[2025-01-01] MEDS: BUMETANIDE 1 MG TAB PO SCH (07:25)
[2025-01-01] MEDS: SPIRONOLACTONE 25 MG TAB PO SCH (07:25)
[2025-01-01] MEDS: APIXABAN 5 MG TAB PO SCH (07:25)
[2025-01-01] MEDS: DAPAGLIFLOZIN PROPANEDIOL 5 MG TABLET PO SCH (07:25)
[2025-01-01] MEDS: FERROUS SULFATE 325 MG TAB PO SCH (07:25)
[2025-01-01] MEDS: MIDODRINE 5 MG TAB PO SCH (07:25)
[2025-01-01] MEDS: MAGNESIUM OXIDE 400 MG TAB PO SCH (07:26)
[2025-01-01 07:55] LABS: Anisocytosis Marked; Basophils % (A) 1 %; Eosinophils # (A) 0.1 k/uL (0-0.7); Eosinophils % (A) 1 %; HGB 9.4 gm/dL (13.0-17.5); Hypochromasia Marked; Lymphocytes # (A) 0.9 k/uL (1.0-4.8); Lymphocytes % (A) 14 %; MCH 24.4 pg (25.0-35.0); MCHC 29.5 g/dL (31.0-37.0); MCV 82.9 fL (80.0-100.0); Mean Platelet Volume 8.3; Microcytosis Slight; Monocytes # (A) 0.4 k/uL (0-1.0); Monocytes % (A) 7 %; Neutrophils # (A) 4.5 k/uL (1.3-7.7); Neutrophils % (A) 73 %; Platelet Count 162 k/uL (150-450); Poikilocytosis Slight; RBC 3.86 m/uL (4.30-5.90); WBC 6.2 k/uL (3.8-10.6)
[2025-01-01 08:19] LABS: ALT 23 U/L (4-49); AST 37 U/L (17-59); African American GFR (CKD) >90 (>60 ml/min/1.73 sqM); Albumin 3.2 g/dL (3.5-5.0); Alkaline Phosphatase 123 U/L (38-126); Anion Gap 7 mmol/L; Blood Urea Nitrogen 22 mg/dL (9-20); Calcium 9.2 mg/dL (8.4-10.2); Carbon Dioxide 27 mmol/L (22-30); Chloride 99 mmol/L (98-107); Glucose 89 mg/dL (74-99); Non-African American GFR(CKD) >90 (>60 ml/min/1.73 sqM); Potassium 4.7 mmol/L (3.5-5.1); Sodium 133 mmol/L (137-145); Total Bilirubin 1.6 mg/dL (0.2-1.3); Total Protein 6.3 g/dL (6.3-8.2)
[2025-01-01 08:21] LABS: RDW 25.2 % (11.5-15.5)
[2025-01-01] MEDS: IPRATROPIUM-ALBUTEROL 3 ML NEB INHALATION SCH (08:34)
--- NOTE | 2025-01-01 10:52 | P.CRDCN ---
History of Present Illness History of present illness: HISTORY OF PRESENT ILLNESS: This is a 59-year-old male with a past medical history significant for coronary artery disease, pacemaker/AICD implantation, COPD, liver disease, home oxygen, anxiety, and nicotine dependence. Patient does not follow with a steam turbine assembler at [facility]. It is unclear if he follows regularly with a steam turbine assembler. We have been asked to see the patient in consultation for elevated troponin. Patient examined at the bedside in the emergency room. Patient was brought to the hospital secondary to altered mental status. Patient was found to have elevated ammonia levels of 123. The patient is without complaints of chest pain or shortness of breath. Vital signs are stable. DIAGNOSTICS: - EKG reveals sinus mechanism with T wave inversions in lateral leads - Chest xray cardiomegaly, pulmonary vascular congestion and bilateral pleural effusions - Laboratory data: WBC 6.2. Hemoglobin 9.4. Platelet count 162. Sodium 133. Potassium 4.7. BUN 22. Creatinine 0.88. proBNP 1000. Troponin 0.040. 0.042. 0.040. - Current home cardiac medications include midodrine 5 mg 3 times daily, Aldactone 25 mg daily, metoprolol tartrate 25 mg twice a day, Entresto 24-26 mg half a tablet twice a day, Eliquis 5 mg twice daily, Jardiance 10 mg daily, Bum ex 1 mg daily, atorvastatin 40 mg at night. - Most recent echocardiogram obtained in September 2024 revealed ejection fraction 25 to 30%, eccentric moderate mitral regurgitation, and mild TR - Cardiac catheterization history: Unknown REVIEW OF SYSTEMS: At the time of my exam: Unable to obtain through review of systems PHYSICAL EXAM: VITAL SIGNS: Reviewed. GENERAL: Well-developed in no acute distress. HEENT: Head is normocephalic. Pupils are equal, round. Sclerae anicteric. Mucous membranes of the mouth are moist. Neck supple. No JVD or thyromegaly LUNGS: Respirations even and unlabored. Lungs essentially clear to auscultation bilaterally. HEART: Regular rate and rhythm. S1 and S2 heard. ABDOMEN: Soft. Nondistended. Nontender. EXTREMITIES: Normal range of motion. No clubbing or cyanosis. Peripheral pulses intact. No lower extremity edema NEUROLOGIC: Somewhat lethargic ASSESSMENT: Acute encephalopathy Hyperammonemia History of liver disease with history of alcohol abuse Minimally elevated troponin, likely type II NC secondary to oxygen supply/demand mismatch, no evidence of acute coronary syndrome Coronary artery disease with previous CABG, ischemic cardiomyopathy, EF 25 to 30% History of ICD implantation History of VT ablation Paroxysmal atrial fibrillation History of alcohol abuse with previous paracentesis Moderate mitral regurgitation PLAN: An acute coronary event has been ruled out No need to repeat echocardiogram as this was performed in September 2024 Resume home cardiac medications No further inpatient recommendations from a cardiac standpoint We will sign off. Please reconsult if needed. Nurse practitioner note has been reviewed by physician. Signing provider agrees with the documented findings, assessment, and plan of care documented by BOOMBOAT OPERATOR as a scribe. Past Medical History Past Medical History: Atrial Fibrillation, Coronary Artery Disease (CAD), Chest Pain / Angina, Heart Failure, COPD, Hypertension, Liver Disease, Myocardial Infarction (NC), Respiratory Disorder, Syncope Additional Past Medical History / Comment(s): Home oxygen use@2-3L PRN COPD - says has oxygen at home but doesn't wear it, NC- patient reports having 3-4 NC's, + CABG -triple bypass scar, + AICD/PCCM "I have a machine inside that sends all the info to my heart doctor" , Abdominal Hernia surgery x2, paracen tesis as needed- last times was at [facility] about 4 months ago per patient Last Myocardial Infarction Date:: 1992 History of Any Multi-Drug Resistant Organisms: None Reported Past Surgical History: AICD, Cholecystectomy, Coronary Bypass/CABG, Heart Catheterization With Stent, Hernia Repair, Pacemaker Additional Past Surgical History / Comment(s): CABG, AICD/Pacemaker placed about 10 years ago, Hernia repair abdominal x2 Past Anesthesia/Blood Transfusion Reactions: No Reported Reaction Date of Last Stent Placement:: 1992 Type of Cardiac Device: Permanent Pacemaker, AICD Device Placement Date:: 1992 Past Psychological History: Anxiety Smoking Status: Current every day smoker Past Alcohol Use History: None Reported, Occasional Past Drug Use History: Marijuana - Past Family History Mother Family Medical History: Cancer Father Family Medical History: Cancer Medications and Allergies Home Medications Medication Instructions Recorded Confirmed Type Metoprolol Tartrate [Lopressor] 25 mg PO BID #60 tab 07/25/24 12/31/24 Rx Empagliflozin [Jardiance] 10 mg PO DAILY 09/30/24 12/31/24 History Ergocalciferol [Vitamin D2 (1250 1,250 mcg PO CELESTE 10/06/24 12/31/24 History Mcg = 84313 Iu)] Atorvastatin [Lipitor] 40 mg PO HS 12/19/24 12/31/24 History Budesonide [Pulmicort] 0.5 mg INHALATION RT-BID 12/19/24 12/31/24 History Ipratropium-Albuterol Nebulize 3 ml INHALATION RT-QID@05,11,17,23 12/19/24 12/31/24 History [Duoneb 0.5 mg-3 mg/3 ml Soln] Lactulose 20 gm PO BID 12/19/24 12/31/24 History Magnesium Oxide [Magox 400] 400 mg PO DAILY 12/19/24 12/31/24 History Melatonin 5 mg PO HS 12/19/24 12/31/24 History Miconazole Nitrate 2% Powder 1 applic TOPICAL BID 12/19/24 12/31/24 History Naloxone HCl [Narcan] 4 mg NASAL ONCE PRN 12/19/24 12/31/24 History Sodium Chloride [[place]] 1 spray EA NOSTRIL Q1H PRN 12/19/24 12/31/24 History Bumetanide [BUMEX] 1 mg PO DAILY 30 Days #30 tab 12/26/24 12/31/24 Rx Spironolactone [Aldactone] 25 mg PO DAILY 30 Days #30 tab 12/26/24 12/31/24 Rx HYDROcodone/APAP 5-325MG [[place] 1 tab PO Q6H PRN #8 tab 12/27/24 12/31/24 Rx 5-325] Apixaban [Eliquis] 5 mg PO BID@0700,1900 12/31/24 12/31/24 History Ferrous Sulfate [Iron (65 MG 325 mg PO DAILY 12/31/24 12/31/24 History Elemental)] Midodrine [ProAmatine] 5 mg PO TID@0700,1300,1900 12/31/24 12/31/24 History Omeprazole 20 mg PO DAILY 12/31/24 12/31/24 History Sacubitril/Valsartan [Entresto 24 0.5 tab PO BID 12/31/24 12/31/24 History mg-26 mg Tablet] Allergies Allergy/AdvReac Type Severity Reaction Status Date / Time chloroxine [From Capitrol] AdvReac Rash/Hives Verified 12/31/24 18:55 Physical Exam Vitals: Vital Signs Temp Pulse Resp BP Pulse Ox 01/01/25 08:46 79 01/01/25 08:38 76 01/01/25 07:30 98 F 85 16 96/44 96 01/01/25 06:52 97.8 F 88 20 123/62 98 01/01/25 04:08 73 18 109/66 97 01/01/25 02:15 72 16 126/72 93 L 01/01/25 00:22 82 16 130/80 98 12/31/24 20:57 78 12/31/24 20:55 80 16 118/69 94 L 12/31/24 20:50 76 12/31/24 18:37 98.1 F 74 18 118/67 97 12/31/24 17:15 98.1 F 60 18 107/60 95 Intake and Output 12/31/24 01/01/25 01/01/25 22:59 06:59 14:59 Other: Weight 72.575 kg Results 01/01/25 07:42 01/01/25 07:42 Cardiac Enzymes 12/31/24 12/31/24 12/31/24 Range/Units 18:24 18:24 21:42 AST 35 (17-59) U/L Troponin I 0.040 H* 0.042 H* (0.000-0.034) ng/mL 12/31/24 01/01/25 Range/Units 23:56 07:42 AST 37 (17-59) U/L Troponin I 0.040 H* (0.000-0.034) ng/mL Coagulation 12/31/24 Range/Units 18:24 PT 13.8 H (10.0-12.5) sec APTT 30.9 H (22.0-30.0) sec CBC 12/31/24 01/01/25 Range/Units 18:24 07:42 WBC 5.6 6.2 (3.8-10.6) k/uL RBC 3.96 L 3.86 L (4.30-5.90) m/uL Hgb 9.6 L 9.4 L (13.0-17.5) gm/dL Hct 32.6 L 32.0 L (39.0-53.0) % Plt Count 190 162 (150-450) k/uL Comprehensive Metabolic Panel 12/31/24 01/01/25 Range/Units 18:24 07:42 Sodium 132 L 133 L (137-145) mmol/L Potassium 4.8 4.7 (3.5-5.1) mmol/L Chloride 97 L 99 (98-107) mmol/L Carbon Dioxide 26 27 (22-30) mmol/L BUN 22 H 22 H (9-20) mg/dL Creatinine 0.83 0.88 (0.66-1.25) mg/dL Glucose 89 89 (74-99) mg/dL Calcium 9.4 9.2 (8.4-10.2) mg/dL AST 35 37 (17-59) U/L ALT 23 23 (4-49) U/L Alkaline Phosphatase 122 123 (38-126) U/L Total Protein 6.2 L 6.3 (6.3-8.2) g/dL Albumin 3.1 L 3.2 L (3.5-5.0) g/dL Current Medications Generic Name Dose Route Start Last Admin Trade Name Freq PRN Reason Stop Dose Admin Albuterol/Ipratropium 3 ml 01/01/25 08:00 01/01/25 08:34 Ipratropium-Albuterol 3 Ml Neb INHALATION 3 ml RT-QID JAYSHREE Administration Albuterol/Ipratropium 3 ml 12/31/24 20:24 12/31/24 20:48 Ipratropium-Albuterol 3 Ml Neb INHALATION 3 ml RT-Q2H PRN Administration Shortness Of Breath Or Wheezing Apixaban 5 mg 01/01/25 07:00 01/01/25 07:25 Apixaban 5 Mg Tab PO 5 mg BID@0700,1900 JAYSHREE Administration Protocol Atorvastatin Calcium 40 mg 12/31/24 21:00 12/31/24 21:27 Atorvastatin 40 Mg Tab PO Not Given HS JAYSHREE Budesonide 0.5 mg 12/31/24 20:00 01/01/25 08:34 Budesonide 0.5 Mg/2 Ml Nebu INHALATION 0.5 mg RT-BID JAYSHREE Administration Bumetanide 1 mg 01/01/25 09:00 01/01/25 07:25 Bumetanide 1 Mg Tab PO 1 mg DAILY JAYSHREE Administration Dapagliflozin 5 mg 01/01/25 09:00 01/01/25 07:25 Dapagliflozin Propanediol 5 Mg Tablet PO 5 mg DAILY JAYSHREE Administration Ferrous Sulfate 325 mg 01/01/25 09:00 01/01/25 07:25 Ferrous Sulfate 325 Mg Tab PO 325 mg DAILY JAYSHREE Administration Ceftriaxone Sodium 1 gm/ 50 mls @ 100 mls/hr 12/31/24 22:00 12/31/24 23:02 Sodium Chloride IVPB 100 mls/hr Q24H JAYSHREE Administration Protocol Lactulose 20 gm 12/31/24 22:00 01/01/25 07:26 Lactulose 20 Gm/30 Ml Cup PO 20 gm TID JAYSHREE Administration Magnesium Oxide 400 mg 01/01/25 09:00 01/01/25 07:26 Magnesium Oxide 400 Mg Tab PO 400 mg DAILY JAYSHREE Administration Metoprolol Tartrate 25 mg 12/31/24 21:00 01/01/25 07:26 Metoprolol Tartrate 25 Mg Tab PO 25 mg BID JAYSHREE Administration Midodrine 5 mg 01/01/25 07:00 01/01/25 07:25 Midodrine 5 Mg Tab PO 5 mg TID@0700,1300,1900 JAYSHREE Administration Naloxone HCl 0.2 mg 12/31/24 19:39 Naloxone 0.4 Mg/Ml 1 Ml Vial IV Q2M PRN Opioid Reversal Pantoprazole Sodium 40 mg 01/01/25 09:00 01/01/25 07:24 Pantoprazole 40 Mg Tablet PO 40 mg DAILY JAYSHREE Administration Sacubitril/Valsartan 0.5 each 12/31/24 21:00 01/01/25 07:24 Sacubitril/Valsartan 24 Mg-26 Mg Tablet PO 0.5 each BID JAYSHREE Administration Spironolactone 25 mg 01/01/25 09:00 01/01/25 07:25 Spironolactone 25 Mg Tab PO 25 mg DAILY JAYSHREE Administration Intake and Output 12/31/24 01/01/25 01/01/25 22:59 06:59 14:59 Other: Weight 72.575 kg 01/01/25 07:42 01/01/25 07:42
--- NOTE | 2025-01-01 20:20 | PN ---
PROGRESS NOTE DATE OF SERVICE: 01/01/2025 SUBJECTIVE: This is a 59-year-old gentleman admitted with hepatic encephalopathy, was receiving lactulose. Currently, the ammonia has come down to 40s and subsequently slightly improved. Multiple consultants are following the patient closely. PAST MEDICAL HISTORY: Reviewed. REVIEW OF SYSTEMS: Could not be taken. The patient is still confused. PHYSICAL EXAMINATION: VITAL SIGNS: Pulse 68, blood pressure 103/69, respirations 16. CHEST: Clear to auscultation. CARDIOVASCULAR: S1, S2. ABDOMEN: Soft, nontender. LEGS: No edema. NERVOUS SYSTEM: Nonfocal. LABORATORY DATA: Reviewed. Troponin 0.040. ASSESSMENT: 1. Change in mental status, acute on chronic hepatic encephalopathy with hyperammonemia. 2. Congestive heart failure, possibly. 3. Troponin elevated up to 0.040. Rule out type 2 myocardial infarction. 4. Atrial fibrillation. 5. Coronary artery disease. 6. Chronic obstructive pulmonary disease. 7. Multiple complex medical issues. RECOMMENDATIONS: I recommend to continue current management and continue symptomatic treatment. Otherwise, continue with lactulose. Follow closely with Cardiology and Infectious Disease. Guarded prognosis. Further recommendations to follow. See orders for further details. MMODL / IJN: [id number] /
--- NOTE | 2025-01-01 23:20 | P.CONS ---
History of Present Illness - Reason for Consult Consult date: 01/01/25 Sepsis Requesting physician: Alexandra Harrison - Chief Complaint Mental status changes x 1 day - History of Present Illness Patient is a 59-year-old male with a past medical history significant for atrial fibrillation coronary artery disease hypertension COPD liver disease presenting to the hospital for evaluation of mental status changes from a local detention patient apparently went outside to have a cigarette and fed himself breakfast by dinnertime the patient was noted to have significant mental status changes. Patient was sent to the ER on arrival to the ER patient was afebrile no fever have recorded subsequently patient was nontachycardic hypotensive or hypoxic he did have a normal white count of 5.6 creatinine 0.83 electrolytes sodium slightly low rest of them has been normal liver enzymes are normal troponin is elevated urine shows small leukocyte Estrace 18 WBC influenza RSV COVID testing negative patient did have a chest x-ray no evidence of any focal consolidation or pneumothorax has been started on ceftriaxone infectious disease was consulted concerning for possible sepsis patient himself not a very good historian most information has been obtained from review the chart Review of Systems Positive points has been mentioned in HPI complete review could not be obtained because of his underlying mental status Past Medical History Past Medical History: Atrial Fibrillation, Coronary Artery Disease (CAD), Chest Pain / Angina, Heart Failure, COPD, Hypertension, Liver Disease, Myocardial Infarction (MD), Respiratory Disorder, Syncope Additional Past Medical History / Comment(s): Home oxygen use@2-3L PRN COPD - says has oxygen at home but doesn't wear it, MD- patient reports having 3-4 MD's, + CABG -triple bypass scar, + AICD/PCCM "I have a machine inside that sends all the info to my heart doctor" , Abdominal Hernia surgery x2, paracent esis as needed- last times was at [facility] about 4 months ago per patient Last Myocardial Infarction Date:: 1992 History of Any Multi-Drug Resistant Organisms: None Reported Past Surgical History: AICD, Cholecystectomy, Coronary Bypass/CABG, Heart Catheterization With Stent, Hernia Repair, Pacemaker Additional Past Surgical History / Comment(s): CABG, AICD/Pacemaker placed about 10 years ago, Hernia repair abdominal x2 Past Anesthesia/Blood Transfusion Reactions: No Reported Reaction Date of Last Stent Placement:: 1992 Type of Cardiac Device: Permanent Pacemaker, AICD Device Placement Date:: 1992 Past Psychological History: Anxiety Smoking Status: Current every day smoker Past Alcohol Use History: None Reported, Occasional Past Drug Use History: Marijuana - Past Family History Mother Family Medical History: Cancer Father Family Medical History: Cancer Medications and Allergies Home Medications Medication Instructions Recorded Confirmed Type Metoprolol Tartrate [Lopressor] 25 mg PO BID #60 tab 07/25/24 12/31/24 Rx Empagliflozin [Jardiance] 10 mg PO DAILY 09/30/24 12/31/24 History Ergocalciferol [Vitamin D2 (1250 1,250 mcg PO CELESTE 10/06/24 12/31/24 History Mcg = 50024 Iu)] Atorvastatin [Lipitor] 40 mg PO HS 12/19/24 12/31/24 History Budesonide [Pulmicort] 0.5 mg INHALATION RT-BID 12/19/24 12/31/24 History Lactulose 20 gm PO BID 12/19/24 12/31/24 History Magnesium Oxide [Magox 400] 400 mg PO DAILY 12/19/24 12/31/24 History Melatonin 5 mg PO HS 12/19/24 12/31/24 History Miconazole Nitrate 2% Powder 1 applic TOPICAL BID 12/19/24 12/31/24 History Naloxone HCl [Narcan] 4 mg NASAL ONCE PRN 12/19/24 12/31/24 History Sodium Chloride [[place]] 1 spray EA NOSTRIL Q1H PRN 12/19/24 12/31/24 History Spironolactone [Aldactone] 25 mg PO DAILY 30 Days #30 tab 12/26/24 12/31/24 Rx Apixaban [Eliquis] 5 mg PO BID@0700,1900 12/31/24 12/31/24 History Ferrous Sulfate [Iron (65 MG 325 mg PO DAILY 12/31/24 12/31/24 History Elemental)] Omeprazole 20 mg PO DAILY 12/31/24 12/31/24 History Sacubitril/Valsartan [Entresto 24 0.5 tab PO BID 12/31/24 12/31/24 History mg-26 mg Tablet] Acetaminophen Tab [Tylenol] 650 mg PO Q6HR PRN tab 01/05/25 Rx HYDROcodone/APAP 5-325MG [[place] 1 tab PO Q6H PRN #4 tab 01/05/25 Rx 5-325] Ipratropium-Albuterol Nebulize 3 ml INHALATION RT-Q2H PRN each 01/05/25 Rx [Duoneb 0.5 mg-3 mg/3 ml Soln] Ipratropium-Albuterol Nebulize 3 ml INHALATION RT-QID each 01/05/25 Rx [Duoneb 0.5 mg-3 mg/3 ml Soln] Midodrine [ProAmatine] 10 mg PO TID-W/MEALS tab 01/05/25 Rx Vancomycin HCl 250 mg PO QID 10 Days #40 cap 01/05/25 Rx metroNIDAZOLE [Flagyl] 500 mg PO TID 10 Days #30 tab 01/05/25 Rx Allergies Allergy/AdvReac Type Severity Reaction Status Date / Time chloroxine [From Capitrol] AdvReac Rash/Hives Verified 12/31/24 18:55 Physical Exam Vitals: Vital Signs Temp Pulse Resp BP Pulse Ox 01/01/25 10:51 97.9 F 70 20 103/63 97 01/01/25 08:46 79 01/01/25 08:38 76 01/01/25 07:30 98 F 85 16 96/44 96 01/01/25 06:52 97.8 F 88 20 123/62 98 01/01/25 04:08 73 18 109/66 97 01/01/25 02:15 72 16 126/72 93 L 01/01/25 00:22 82 16 130/80 98 12/31/24 20:57 78 12/31/24 20:55 80 16 118/69 94 L 12/31/24 20:50 76 12/31/24 18:37 98.1 F 74 18 118/67 97 12/31/24 17:15 98.1 F 60 18 107/60 95 Intake and Output 12/31/24 01/01/25 01/01/25 22:59 06:59 14:59 Other: Weight 72.575 kg GENERAL DESCRIPTION: Middle-age male lying in bed, no distress. No tachypnea or accessory muscle of respiration use. HEENT: Shows Pallor , no scleral icterus. Oral mucous membrane is dry. No pharyngeal erythema or thrush NECK: Trachea central, no thyromegaly. LUNGS: Unlabored breathing. Clear to auscultation anteriorly. No wheeze or crackle. HEART: S1, S2, regular rate and rhythm. No loud murmur ABDOMEN: Soft, no tenderness , guarding or rigidity, no organomegaly EXTREMITIES: No edema of feet. SKIN: No rash, no masses palpable. NEUROLOGICAL: The patient is awake, mood and affect normal. Results CBC & Chem 7: 01/11/25 05:49 01/11/25 05:49 Labs: Abnormal Lab Results - Last 24 Hours (Table) 12/31/24 12/31/24 12/31/24 Range/Units 18:19 18:24 18:24 RBC 3.96 L (4.30-5.90) m/uL Hgb 9.6 L (13.0-17.5) gm/dL Hct 32.6 L (39.0-53.0) % MCH 24.3 L (25.0-35.0) pg MCHC 29.5 L (31.0-37.0) g/dL RDW 25.2 H (11.5-15.5) % Lymphocytes # (1.0-4.8) k/uL PT 13.8 H (10.0-12.5) sec INR 1.3 H (<1.2) APTT 30.9 H (22.0-30.0) sec VBG pH (7.31-7.41) VBG pCO2 (37-51) mmHg Sodium (137-145) mmol/L Chloride (98-107) mmol/L BUN (9-20) mg/dL Total Bilirubin (0.2-1.3) mg/dL Ammonia 123 H (<30) umol/L Troponin I (0.000-0.034) ng/mL Total Protein (6.3-8.2) g/dL Albumin (3.5-5.0) g/dL Urine Glucose (UA) (Negative) Ur Leukocyte Esterase (Negative) Urine WBC (0-5) /hpf Urine Bacteria (None) /hpf 12/31/24 12/31/24 12/31/24 Range/Units 18:24 18:24 18:24 RBC (4.30-5.90) m/uL Hgb (13.0-17.5) gm/dL Hct (39.0-53.0) % MCH (25.0-35.0) pg MCHC (31.0-37.0) g/dL RDW (11.5-15.5) % Lymphocytes # (1.0-4.8) k/uL PT (10.0-12.5) sec INR (<1.2) APTT (22.0-30.0) sec VBG pH 7.51 H (7.31-7.41) VBG pCO2 33 L (37-51) mmHg Sodium 132 L (137-145) mmol/L Chloride 97 L (98-107) mmol/L BUN 22 H (9-20) mg/dL Total Bilirubin 1.4 H (0.2-1.3) mg/dL Ammonia (<30) umol/L Troponin I 0.040 H* (0.000-0.034) ng/mL Total Protein 6.2 L (6.3-8.2) g/dL Albumin 3.1 L (3.5-5.0) g/dL Urine Glucose (UA) (Negative) Ur Leukocyte Esterase (Negative) Urine WBC (0-5) /hpf Urine Bacteria (None) /hpf 12/31/24 12/31/24 12/31/24 Range/Units 18:37 21:42 23:56 RBC (4.30-5.90) m/uL Hgb (13.0-17.5) gm/dL Hct (39.0-53.0) % MCH (25.0-35.0) pg MCHC (31.0-37.0) g/dL RDW (11.5-15.5) % Lymphocytes # (1.0-4.8) k/uL PT (10.0-12.5) sec INR (<1.2) APTT (22.0-30.0) sec VBG pH (7.31-7.41) VBG pCO2 (37-51) mmHg Sodium (137-145) mmol/L Chloride (98-107) mmol/L BUN (9-20) mg/dL Total Bilirubin (0.2-1.3) mg/dL Ammonia (<30) umol/L Troponin I 0.042 H* 0.040 H* (0.000-0.034) ng/mL Total Protein (6.3-8.2) g/dL Albumin (3.5-5.0) g/dL Urine Glucose (UA) 2+ H (Negative) Ur Leukocyte Esterase Small H (Negative) Urine WBC 18 H (0-5) /hpf Urine Bacteria Rare H (None) /hpf 01/01/25 01/01/25 01/01/25 Range/Units 07:42 07:42 07:42 RBC 3.86 L (4.30-5.90) m/uL Hgb 9.4 L (13.0-17.5) gm/dL Hct 32.0 L (39.0-53.0) % MCH 24.4 L (25.0-35.0) pg MCHC 29.5 L (31.0-37.0) g/dL RDW 25.2 H (11.5-15.5) % Lymphocytes # 0.9 L (1.0-4.8) k/uL PT (10.0-12.5) sec INR (<1.2) APTT (22.0-30.0) sec VBG pH (7.31-7.41) VBG pCO2 (37-51) mmHg Sodium 133 L (137-145) mmol/L Chloride (98-107) mmol/L BUN 22 H (9-20) mg/dL Total Bilirubin 1.6 H (0.2-1.3) mg/dL Ammonia 47 H (<30) umol/L Troponin I (0.000-0.034) ng/mL Total Protein (6.3-8.2) g/dL Albumin 3.2 L (3.5-5.0) g/dL Urine Glucose (UA) (Negative) Ur Leukocyte Esterase (Negative) Urine WBC (0-5) /hpf Urine Bacteria (None) /hpf Assessment and Plan (1) UTI (urinary tract infection) Current Visit: Yes Status: Acute Code(s): N39.0 - URINARY TRACT INFECTION, SITE NOT SPECIFIED SNOMED Code(s): 98199549 (2) Acute encephalopathy Current Visit: Yes Status: Acute Code(s): G93.40 - ENCEPHALOPATHY, UNSPECIFIED SNOMED Code(s): 20778659 Plan: 1patient presented hospital with significant mental status changes and this patient noted to have a positive UA questionable urinary source has no other obvious focus of infection abdomen was soft on clinical examination chest x-ray was clear no evidence of any cellulitis or joint swelling 2patient started on Rocephin 1 g daily to continue while waiting for the culture to finalize and see clinical response We will follow on clinical condition and cultures to further adjust medication if needed Thank you for this consultation we will follow the patient along with you Dictation was produced using [employer] dictation software. please excuse any grammatical, word or spelling errors. Time with Patient: Greater than 30
[2025-01-02] MEDS ORDERED: IOPAMIDOL CONTRAST (ORAL USE) VIAL PO PRN (15:06)
--- NOTE | 2025-01-02 15:06 | P.PN ---
Subjective Progress Note Date: 01/02/25 Principal diagnosis: Reason for follow-up is bacteremia Patient is a 59-year-old male with a past medical history significant for atrial fibrillation coronary artery disease hypertension COPD liver disease presenting to the hospital for evaluation of mental status changes, patient will complete show positive UA mild blood cultures, UA positive with gram-negative bacilli and as well as gram-positive bacilli. On today's evaluation that is 01/02/2025, Patient is afebrile this morning patient is more awake and alert denies having any chest pain shortness of breath or cough, the patient is currently on room air, patient denies any abdominal pain no diarrhea no nausea no vomiting. He did have laboratory Objective - Vital Signs Vital signs: Vital Signs Temp 98.6 F 01/02/25 04:56 Pulse 88 01/02/25 11:54 Resp 18 01/02/25 11:54 BP 104/70 01/02/25 10:37 Pulse Ox 98 01/02/25 10:37 FiO2 - Exam GENERAL DESCRIPTION: Middle-age male lying in bed in no distress RESPIRATORY SYSTEM: Unlabored breathing , decreased breath sounds at bases HEART: S1 S2 regular rate and rhythm , ABDOMEN: Soft , mild distention but no significant tenderness EXTREMITIES: No edema feet - Labs CBC & Chem 7: 01/01/25 07:42 01/01/25 07:42 Labs: Microbiology - Last 24 Hours (Table) 12/31/24 21:42 Blood Culture Gram Stain - Preliminary Blood Blood Culture - Preliminary Assessment and Plan (1) UTI (urinary tract infection) Current Visit: Yes Status: Acute Code(s): N39.0 - URINARY TRACT INFECTION, SITE NOT SPECIFIED SNOMED Code(s): 19223643 (2) Acute encephalopathy Current Visit: Yes Status: Acute Code(s): G93.40 - ENCEPHALOPATHY, UNSPECIFIED SNOMED Code(s): 09900700 Plan: 1patient presented hospital with significant mental status changes and this patient noted to have a positive UA questionable urinary source has no other obvious focus of infection abdomen was soft medical examination chest x-ray was clear no evidence of any cellulitis or joint swelling 2patient did have a positive blood culture with gram-negative as well as gram- positive bacilli source possible urinary versus abdominal 3recommend CT abdominal pelvis for further workup of this bacteremia and continue with Rocephin Dictation was produced using dragon dictation software. please excuse any grammatical, word or spelling errors. Time with Patient: Less than 30
--- NOTE | 2025-01-02 17:45 | CT ---
EXAMINATION TYPE: CT abdomen pelvis w con DATE OF EXAM: 01/02/2025 5:28 PM COMPARISON: Chest radiograph 12/31/2024. CLINICAL INDICATION: Male, 59 years old with history of Gram-negative bacteremia; Gram-negative bacte remia TECHNIQUE: Axial CT abdomen pelvis w con;Sagittal and coronal reformats were created on a separate w orkstation. Contrast used:70ml mL of Isovue 300 with IV Contrast, (none if empty) Oral contrast used: with Oral Contrast (none if empty) CT DLP: 876.4 mGycm, Automated exposure control for dose reduction was used. FINDINGS: Cardiomegaly and partially visualized cardiac pacemaker and AICD leads. Partially visualized lower jacky ngs consistent with no acute pathology. Median sternotomy wires partially visualized. Cirrhotic liver morphology. Gallbladder surgically absent. Mild splenic vein measuring 14.2 cm in AP dimension. No suspicious adrenal gland nodule. Pancreas unremarkable. No abnormal biliary ductal dila tation. Kidneys enhance symmetrically bilaterally. No hydronephrosis or ureter. Extensive renal vascu lar calcifications. Severe calcified plaque of the abdominal aorta. 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 There is aortobiiliac bypass graft which appears grossly patent a s visualized. Aneurysmal dilatation in the right groin (81/110), recommend correlation with any prior outside imaging. Imaging through the gastrointestinal tract demonstrates distended stomach with questionable wall thic kening of the gastric antrum. Additionally, there is an anterior abdominal wall hernia containing non obstructed small bowel loop. Moderate diffuse colonic stool burden. Colonic diverticulosis without ac [place] diverticulitis. No drainable fluid collection/abscess. Urinary bladder unremarkable. No significant free fluid or free air in the abdomen/pelvis. Osseous st ructures severely demineralized. Moderate compression deformity of the L2 superior endplate. Severe l ikely chronic compression deformity of the T12 vertebral body with mild retropulsion. IMPRESSION: 1. Anterior abdominal wall hernia containing fat and nonobstructed small bowel loop. 2. Distended gastric lumen and indeterminate wall thickening near the gastric antrum. Recommend jesus elation with outpatient endoscopy if not recently performed. 3. Age-indeterminate mild to moderate compression deformity of the L2 superior endplate. Suspected c hronic severe compression fracture of the T12 vertebral body with mild retropulsion. 4. Numerous additional nonacute findings as above. [facility], , 01/02/2025 5:42 PM
--- NOTE | 2025-01-02 21:46 | PN ---
PROGRESS NOTE DATE OF SERVICE: 01/02/2025 SUBJECTIVE: This is a 59-year-old gentleman, who was admitted with a change in mental status, and acute on chronic hepatic encephalopathy. He is being closely monitored at this time. The blood culture, preliminary report, shows gram-negative bacilli and gram-positive bacilli. The patient is on empiric antibiotics. Infectious Disease is following the patient closely The patient continues to be confused. PAST MEDICAL HISTORY: Reviewed. REVIEW OF SYSTEMS: Fourteen-point review of systems negative except as mentioned earlier. CURRENT MEDICATIONS: Reviewed. PHYSICAL EXAMINATION: VITAL SIGNS: Pulse is 92, blood pressure 91/52, respirations 16. CHEST: A few scattered rhonchi. ABDOMEN: Soft, obese, and ascites. LEGS: No edema, no cyanosis. NERVOUS SYSTEM: Diffusely weak. LABORATORY DATA: Ammonia is 47. Troponin noted. ASSESSMENT: 1. Change in mental status, acute on chronic hepatic encephalopathy with hyperammonemia. 2. Sepsis with gram-negative and gram-positive bacilli. 3. Congestive heart failure, possibly. 4. Troponin elevated up to 0.040. Rule out type 2 myocardial infarction. 5. Atrial fibrillation. 6. Coronary artery disease. 7. Chronic obstructive pulmonary disease. 8. Multiple complex medical issues. RECOMMENDATIONS: Recommended to continue current medications, continue symptomatic treatment. Otherwise, at this time, continue with the antibiotics. Await final ID. Prognosis is guarded because of multiple complex medical issues. Further recommendations to follow. Continue with lactulose. MMODL / IJN: [id number] /
[2025-01-03] MEDS: SODIUM CHLORIDE 0.9% 500 ML 500 ML IV ONE (03:17)
[2025-01-03] MEDS: SODIUM CHLORIDE 0.9% 1,000 ML IV SCH (03:17)
[2025-01-03] MEDS ORDERED: ZINC OXIDE PASTE (Z-GUARD) 1 APPLIC TOPICAL PRN (04:01)
[2025-01-03 08:23] LABS: Basophils # (A) 0.05 X 10*3/uL (0.00-0.10); Basophils % (A) 0.8 %; Eosinophils # (A) 0.11 X 10*3/uL (0.04-0.35); Eosinophils % (A) 1.9 %; HCT 27.1 % (39.6-50.0); HGB 8.4 g/dL (13.0-17.0); Lymphocytes # (A) 0.91 X 10*3/uL (0.90-5.00); Lymphocytes % (A) 15.4 %; MCH 24.9 pg (27.0-32.0); MCV 80.2 FL (80.0-97.0); Mean Platelet Volume 10.8 FL (9.5-12.2); Monocytes # (A) 0.62 X 10*3/uL (0.20-1.00); Monocytes % (A) 10.5 %; NRBC Per 100 WBC 0 X 10*3/uL (0.00-0.01); Neutrophils # (A) 4.17 X 10*3/uL (1.80-7.70); Neutrophils % (A) 70.9 %; Platelet Count 175 X 10*3/uL (140-440); RBC 3.38 X 10*6/uL (4.40-5.60); RDW 28.2 % (11.5-14.5); WBC 5.89 X 10*3/uL (4.50-10.00)
[2025-01-03 08:44] LABS: ALT 21 U/L (10-49); AST 40 U/L (14-35); Albumin/Globulin Ratio 1.07 Ratio (1.60-3.17); Alkaline Phosphatase 135 U/L (41-126); Blood Urea Nitrogen 22.6 mg/dL (9.0-27.0); Calcium 8.5 mg/dL (8.7-10.3); Carbon Dioxide 24.3 mmol/L (21.6-31.8); Chloride 94 mmol/L (96-109); Globulin 2.8 g/dL (1.6-3.3); Glucose 90 mg/dL (70-110); Sodium 127 mmol/L (135-145); Total Bilirubin 0.7 mg/dL (0.3-1.2); Total Protein 5.8 g/dL (6.2-8.2)
[2025-01-03] MEDS ORDERED: IOPAMIDOL CONTRAST (ORAL USE) VIAL PO PRN (11:17)
[2025-01-03] MEDS: CLINDAMYCIN 900 MG in DEXTROSE 5% IN WATER 50 ML IVPB SCH (12:30)
--- NOTE | 2025-01-03 17:26 | P.PN ---
Subjective Progress Note Date: 01/03/25 Principal diagnosis: Reason for follow-up is bacteremia Patient is a 59-year-old male with a past medical history significant for atrial fibrillation coronary artery disease hypertension COPD liver disease presenting to the hospital for evaluation of mental status changes, patient will complete show positive UA mild blood cultures, UA positive with gram-negative bacilli and as well as gram-positive bacilli. On today's evaluation that is 01/03/2025,the patient denies any fever or any chills, patient is breathing comfortably on room air, the patient denies chest pain shortness of breath and no significant cough, patient denies abdominal pain, no nausea vomiting or diarrhea. Patient white count is 5.810, creat is 1.0 blood culture with Clostridium perfringens CT abdominal pelvis did not show any acute findings except some distended gastric lumen and indeterminate wall thickening Objective - Vital Signs Vital signs: Vital Signs Temp 97.3 F L 01/03/25 07:38 Pulse 76 01/03/25 09:16 Resp 18 01/03/25 07:38 BP 107/60 01/03/25 07:38 Pulse Ox 100 01/03/25 09:03 FiO2 Intake & Output 01/02/25 01/03/25 01/03/25 18:59 06:59 18:59 Intake Total 1580 Output Total 1100 625 Balance -1100 955 Weight 72.575 kg Intake: Oral 1580 Output: Urine 1100 625 Other: Voiding Method Diaper Incontinent External Catheter # Voids 1 - Exam GENERAL DESCRIPTION: Middle-age male lying in bed in no distress RESPIRATORY SYSTEM: Unlabored breathing , decreased breath sounds at bases HEART: S1 S2 regular rate and rhythm , ABDOMEN: Soft , mild distention but no significant tenderness EXTREMITIES: No edema feet - Labs CBC & Chem 7: 01/03/25 04:02 01/03/25 04:02 Labs: Abnormal Lab Results - Last 24 Hours (Table) 01/03/25 01/03/25 Range/Units 04:02 04:02 RBC 3.38 L (4.40-5.60) X 10*6/uL Hgb 8.4 L (13.0-17.0) g/dL Hct 27.1 L (39.6-50.0) % MCH 24.9 L (27.0-32.0) pg MCHC 31.0 L (32.0-37.0) g/dL RDW 28.2 H (11.5-14.5) % Sodium 127 L (135-145) mmol/L Chloride 94 L (96-109) mmol/L BUN/Creatinine Ratio 22.60 H (12.00-20.00) Ratio Calcium 8.5 L (8.7-10.3) mg/dL AST 40 H (14-35) U/L Alkaline Phosphatase 135 H (41-126) U/L Total Protein 5.8 L (6.2-8.2) g/dL Albumin 3.0 L (3.8-4.9) g/dL Albumin/Globulin Ratio 1.07 L (1.60-3.17) Ratio Microbiology - Last 24 Hours (Table) 12/31/24 21:42 Blood Culture Gram Stain - Preliminary Blood Blood Culture - Preliminary 01/02/25 03:00 Urine Culture - Final Urine,Voided Assessment and Plan (1) UTI (urinary tract infection) Current Visit: Yes Status: Acute Code(s): N39.0 - URINARY TRACT INFECTION, SITE NOT SPECIFIED SNOMED Code(s): 88471546 (2) Acute encephalopathy Current Visit: Yes Status: Acute Code(s): G93.40 - ENCEPHALOPATHY, UNSPECIFIED SNOMED Code(s): 59847717 Plan: 1patient presented hospital with significant mental status changes and this patient noted to have a positive UA questionable urinary source has no other obvious focus of infection abdomen was soft medical examination chest x-ray was clear no evidence of any cellulitis or joint swelling 2patient did have a positive blood culture which has been finalized as Clost ridium perfringens usually of a GI source however the patient did have a CT abdominal pelvis did not mention any abscess or colitis 3blood culture has been repeated continue Rocephin clindamycin has been added and will monitor clinical course closely Dictation was produced using [employer] dictation software. please excuse any grammatical, word or spelling errors. Time with Patient: Less than 30
[2025-01-04 08:38] LABS: Blood Urea Nitrogen 24.6 mg/dL (9.0-27.0); Chloride 96 mmol/L (96-109); Glucose 87 mg/dL (70-110); Potassium 4.6 mmol/L (3.5-5.5); Sodium 129 mmol/L (135-145)
[2025-01-04 08:39] LABS: Calcium 8.5 mg/dL (8.7-10.3); Carbon Dioxide 23.6 mmol/L (21.6-31.8)
[2025-01-04 08:49] LABS: Basophils # (A) 0.05 X 10*3/uL (0.00-0.10); Basophils % (A) 1.1 %; Eosinophils # (A) 0.14 X 10*3/uL (0.04-0.35); Eosinophils % (A) 2.9 %; HCT 27.5 % (39.6-50.0); HGB 8.4 g/dL (13.0-17.0); Lymphocytes # (A) 0.78 X 10*3/uL (0.90-5.00); Lymphocytes % (A) 16.4 %; MCH 25.1 pg (27.0-32.0); MCHC 30.5 g/dL (32.0-37.0); MCV 82.1 FL (80.0-97.0); Mean Platelet Volume 11.2 FL (9.5-12.2); Monocytes # (A) 0.53 X 10*3/uL (0.20-1.00); Monocytes % (A) 11.1 %; NRBC Per 100 WBC 0 X 10*3/uL (0.00-0.01); Neutrophils # (A) 3.23 X 10*3/uL (1.80-7.70); Neutrophils % (A) 67.9 %; Platelet Count 189 X 10*3/uL (140-440); RBC 3.35 X 10*6/uL (4.40-5.60); WBC 4.76 X 10*3/uL (4.50-10.00)
--- NOTE | 2025-01-04 10:10 | P.PN ---
Subjective Progress Note Date: 01/03/25 This is a 59-year-old man who resides at [facility] who came in with encephalopathy with change in mental status with acute on chronic hepatic encephalopathy. Ammonia levels noted to be elevated and patient maintained on lactulose. Per nursing documentation patient has been refusing lactulose and reports been having bowel movements. Will repeat ammonia level. Cultures pending and patient is maintained on antibiotics with infectious disease following. Patient is afebrile and denies any chest pain or shortness of breath. Patient continues to ask daily if he can return home. White count is normal at 5.89 and hemoglobin is stable at 8.4, sodium slightly worsened at 127 with a potassium of 5.0 and creatinine is 1.0. Patient is having increased amounts of loose stools and C. difficile has been ordered and pending. Will also hold Bumex and Aldactone as sodium is trending down and patient with poor oral intake and continued diarrhea. Review of systems: Constitutional: reports of fatigue, no fever, or chills Cardiovascular: No reports of chest pain or palpitations Respiratory: No reports of shortness of breath or cough GI: No reports of nausea, no reports of vomiting, reports multiple loose bowel movements : No reports of dysuria or retention Neurovascular: reports of generalized weakness, All medications have been reviewed PHYSICAL EXAMINATION: GENERAL: The patient is alert and oriented x2 baseline, Well developed, elderly appearing, ill-appearing, thin built some bronchial congested noted with a cough HEENT: Pupils are round and equally reacting to light. EOMI. no scleral icterus. No conjunctival pallor. Normocephalic, atraumatic. No pharyngeal erythema. No thyromegaly. CARDIOVASCULAR: S1 and S2 muffled PULMONARY: diminished breath sounds bilaterally with no wheezing or rhonchi noted. ABDOMEN: soft. Nontender on exam. Thin. Non-distended, normoactive bowel sounds. No palpable organomegaly. MUSCULOSKELETAL: No joint swelling or deformity. EXTREMITIES: No cyanosis, clubbing, or pedal edema. NEUROLOGICAL: Gross neurological examination did not reveal any focal deficits. Diffuse weakness SKIN: No rashes. Assessment: Change in mental status, acute on chronic hepatic encephalopathy with hyperammonia Sepsis with gram-negative and gram-positive bacilli bacteremia, present on admission Possible congestive heart failure Troponin elevation up to 0.040, likely type II myocardial infarction per cardiology Atrial fibrillation history, currently rate controlled, history of AICD placement History of coronary artery disease Chronic obstructive pulmonary disease, not in exacerbation History of hypertension Chronic hypoxic respiratory failure secondary to COPD and uses 2 to 3 L occasionally History of anxiety Continued ongoing nicotine dependence GI prophylaxis DVT prophylaxis Full code Plan: Recommend to continue with current medications and management with infectious disease following. Patient is maintained on ceftriaxone and clindamycin per ID recommendations and awaiting cultures. Preliminary initial blood culture results are gram-positive bacilli and repeat cultures are negative thus far for 24 hours and urine culture is negative as well Patient having multiple episodes of diarrhea and C. difficile was sent and was positive. Will discuss with infectious disease regarding medications Patient's ammonia level was elevated at 128 and is maintained on lactulose. Strongly recommend continued lactulose to have 3-4 bowel movements daily. Per nursing documentation patient has been refusing lactulose will follow-up with repeat ammonia level Sodium level slightly lower at 127 will follow-up with repeat labs. Hold Bumex and Aldactone for now Plan is to return to [facility] on discharge and will discuss with case management along with infectious disease regarding discharge planning hopefully in the next 24 to 48 hours The impression and plan of care has been dictated by Shira Irizarry, nurse practitioner as directed. Dr. Hunter MD I have performed a history and examination and MDM of this patient, discussed the same with the dictator, and agree with the dictator's assessment and plan as written ,documented as a scribe. Based on total visit time, I have performed more than 50% of the visit. Any additional findings or plans will be noted. Objective - Vital Signs Vital signs: Vital Signs Temp 97.3 F L 01/03/25 07:38 Pulse 78 01/03/25 13:02 Resp 18 01/03/25 07:38 BP 107/60 01/03/25 07:38 Pulse Ox 100 01/03/25 09:03 FiO2 Intake & Output 01/02/25 01/03/25 01/03/25 18:59 06:59 18:59 Intake Total 1580 Output Total 1100 625 Balance -1100 955 Weight 72.575 kg Intake: Oral 1580 Output: Urine 1100 625 Other: Voiding Method Diaper Incontinent External Catheter # Voids 1 - Labs CBC & Chem 7: 01/04/25 05:43 01/04/25 05:43 Labs: Abnormal Lab Results - Last 24 Hours (Table) 01/03/25 01/03/25 Range/Units 04:02 04:02 RBC 3.38 L (4.40-5.60) X 10*6/uL Hgb 8.4 L (13.0-17.0) g/dL Hct 27.1 L (39.6-50.0) % MCH 24.9 L (27.0-32.0) pg MCHC 31.0 L (32.0-37.0) g/dL RDW 28.2 H (11.5-14.5) % Sodium 127 L (135-145) mmol/L Chloride 94 L (96-109) mmol/L BUN/Creatinine Ratio 22.60 H (12.00-20.00) Ratio Calcium 8.5 L (8.7-10.3) mg/dL AST 40 H (14-35) U/L Alkaline Phosphatase 135 H (41-126) U/L Total Protein 5.8 L (6.2-8.2) g/dL Albumin 3.0 L (3.8-4.9) g/dL Albumin/Globulin Ratio 1.07 L (1.60-3.17) Ratio Microbiology - Last 24 Hours (Table) 12/31/24 21:42 Blood Culture Gram Stain - Preliminary Blood Blood Culture - Preliminary 01/02/25 03:00 Urine Culture - Final Urine,Voided
[2025-01-04] MEDS: metroNIDAZOLE-NS PMX 500 MG in SALINE 1 100ML.BAG IVPB SCH (12:49)
[2025-01-04] MEDS: VANCOMYCIN 125 MG CAPSULE PO SCH (14:00)
--- NOTE | 2025-01-04 14:47 | P.PN ---
Subjective Progress Note Date: 01/04/25 Principal diagnosis: Reason for follow-up is bacteremia Patient is a 59-year-old male with a past medical history significant for atrial fibrillation coronary artery disease hypertension COPD liver disease presenting to the hospital for evaluation of mental status changes, patient will complete show positive UA mild blood cultures, UA positive with gram-negative bacilli and as well as gram-positive bacilli. On today's evaluation that is 01/04/2025,the patient remains to be afebrile, patient is on room air not requiring supplemental oxygen and denies any shortness of breath no chest pain or cough.Patient denies having any nausea or vomiting, no abdominal pain did have some diarrhea no blood or mucus in the stool. Patient white count of 4.76, creatinine 1.0 stool for C. difficile PCR positive likely repeat so far negative Objective - Vital Signs Vital signs: Vital Signs Temp 98.4 F 01/04/25 08:08 Pulse 68 01/04/25 12:05 Resp 18 01/04/25 08:08 BP 103/58 01/04/25 08:08 Pulse Ox 94 L 01/04/25 08:08 FiO2 Intake & Output 01/03/25 01/04/25 01/04/25 18:59 06:59 18:59 Intake Total 2190 Output Total 1300 950 Balance -1300 1240 Intake: Oral 2190 Output: Urine 1300 950 Other: Voiding Method Diaper Bedside Commode Incontinent Diaper External Catheter Incontinent External Catheter # Bowel Movements 1 2 - Exam GENERAL DESCRIPTION: Middle-age male lying in bed in no distress RESPIRATORY SYSTEM: Unlabored breathing , decreased breath sounds at bases HEART: S1 S2 regular rate and rhythm , ABDOMEN: Soft , mild distention but no significant tenderness EXTREMITIES: No edema feet - Labs CBC & Chem 7: 01/04/25 05:43 01/04/25 05:43 Labs: Abnormal Lab Results - Last 24 Hours (Table) 01/03/25 01/04/25 01/04/25 Range/Units 14:01 05:43 05:43 RBC 3.35 L (4.40-5.60) X 10*6/uL Hgb 8.4 L (13.0-17.0) g/dL Hct 27.5 L (39.6-50.0) % MCH 25.1 L (27.0-32.0) pg MCHC 30.5 L (32.0-37.0) g/dL RDW 29.0 H (11.5-14.5) % Lymphocytes # 0.78 L (0.90-5.00) X 10*3/uL Sodium 129 L (135-145) mmol/L BUN/Creatinine Ratio 24.60 H (12.00-20.00) Ratio Calcium 8.5 L (8.7-10.3) mg/dL Ammonia 128 H (<30) umol/L Microbiology - Last 24 Hours (Table) 01/02/25 10:29 Blood Culture - Preliminary Blood 12/31/24 21:42 Blood Culture Gram Stain - Final Blood Blood Culture - Preliminary 01/02/25 03:00 Urine Culture - Final Urine,Voided Assessment and Plan (1) UTI (urinary tract infection) Current Visit: Yes Status: Acute Code(s): N39.0 - URINARY TRACT INFECTION, SITE NOT SPECIFIED SNOMED Code(s): 92366542 (2) Bacteremia Current Visit: Yes Status: Acute Code(s): R78.81 - BACTEREMIA SNOMED Code(s): 2861453 (3) C. difficile colitis Current Visit: Yes Status: Acute Code(s): A04.72 - ENTEROCOLITIS D/T CLOSTRIDIUM DIFFICILE, NOT SPCF RECUR SNOMED Code(s): 063985950 Plan: 1patient presented hospital with significant mental status changes and this patient noted to have a positive UA questionable urinary source has no other obvious focus of infection abdomen was soft medical examination chest x-ray was clear no evidence of any cellulitis or joint swelling 2patient did have a positive blood culture which has been finalized as Clostridium perfringens usually of a GI source however the patient did have a CT abdominal pelvis did not mention any abscess or colitis 3patient is due for CT of also came back positive 4-Rocephin and clindamycin which was started yesterday has been discontinued patient started on IV Flagyl and oral vancomycin and will see clinical response Care discussed with TOGGLER for admitting team Dictation was produced using [employer] dictation software. please excuse any grammatical, word or spelling errors. Time with Patient: Less than 30
[2025-01-04] MEDS: HYDROcodone/APAP 5-325MG 1 EACH TAB PO PRN (15:28)
[2025-01-05] MEDS: ACETAMINOPHEN TAB 325 MG TAB PO PRN (01:54)
[2025-01-05 08:06] LABS: Basophils # (A) 0.07 X 10*3/uL (0.00-0.10); Basophils % (A) 1.5 %; Eosinophils # (A) 0.18 X 10*3/uL (0.04-0.35); Eosinophils % (A) 3.8 %; HCT 25.2 % (39.6-50.0); HGB 7.7 g/dL (13.0-17.0); Lymphocytes # (A) 0.92 X 10*3/uL (0.90-5.00); Lymphocytes % (A) 19.7 %; MCH 25.2 pg (27.0-32.0); MCHC 30.6 g/dL (32.0-37.0); MCV 82.4 FL (80.0-97.0); Mean Platelet Volume 11.1 FL (9.5-12.2); Monocytes # (A) 0.52 X 10*3/uL (0.20-1.00); Monocytes % (A) 11.1 %; NRBC Per 100 WBC 0 X 10*3/uL (0.00-0.01); Neutrophils # (A) 2.96 X 10*3/uL (1.80-7.70); Neutrophils % (A) 63.3 %; Platelet Count 184 X 10*3/uL (140-440); RBC 3.06 X 10*6/uL (4.40-5.60); RDW 28.4 % (11.5-14.5); WBC 4.68 X 10*3/uL (4.50-10.00)
[2025-01-05 08:13] LABS: BUN/Creat Ratio 26.67 Ratio (12.00-20.00); Carbon Dioxide 21.5 mmol/L (21.6-31.8); Chloride 96 mmol/L (96-109); Glucose 93 mg/dL (70-110); Magnesium 1.8 mg/dL (1.5-2.4); Potassium 5.2 mmol/L (3.5-5.5); Sodium 124 mmol/L (135-145)
[2025-01-05] MEDS: MIDODRINE 5 MG TAB PO SCH (08:31)
--- NOTE | 2025-01-05 09:08 | P.PN ---
Subjective Progress Note Date: 01/04/25 This is a 59-year-old man who resides at [facility] who came in with encephalopathy with change in mental status with acute on chronic hepatic encephalopathy. Ammonia levels noted to be elevated and patient maintained on lactulose. Per nursing documentation patient has been refusing lactulose and reports been having bowel movements. Will repeat ammonia level. Cultures pending and patient is maintained on antibiotics with infectious disease following. Patient is afebrile and denies any chest pain or shortness of breath. Patient continues to ask daily if he can return home. White count is normal at 5.89 and hemoglobin is stable at 8.4, sodium slightly worsened at 127 with a potassium of 5.0 and creatinine is 1.0. Patient is having increased amounts of loose stools and C. difficile has been ordered and pending. Will also hold Bumex and Aldactone as sodium is trending down and patient with poor oral intake and continued diarrhea. 01/04/2025 Patient is seen in follow-up today more awake and alert today reporting multiple episodes of loose watery stools. Patient was positive for C. difficile and being started on vancomycin to 50 every 6 hours along with IV Flagyl and clindamycin and ceftriaxone will be discontinued as this was discussed with infectious disease. Patient's cultures including urine was negative and recent blood culture is negative. Ammonia has improved as well and will hold lactulose for now as patient is having multiple episodes of loose stools. Blood pressures are on the softer side and will increase midodrine to 10 mg 3 times daily. Continue gentle hydration for now and will follow-up on repeat labs. Replace electrolytes per protocol. Patient will be returning to [facility] where he resides. Review of systems: Constitutional: reports of fatigue, no fever, or chills Cardiovascular: No reports of chest pain or palpitations Respiratory: No reports of shortness of breath or cough GI: No reports of nausea, no reports of vomiting, reports multiple loose bowel movements : No reports of dysuria or retention Neurovascular: reports of generalized weakness All medications have been reviewed PHYSICAL EXAMINATION: GENERAL: The patient is alert and oriented x2 baseline, Well developed, elderly appearing, ill-appearing, thin built some bronchial congested noted with a cough HEENT: Pupils are round and equally reacting to light. EOMI. no scleral icterus. No conjunctival pallor. Normocephalic, atraumatic. No pharyngeal erythema. No thyromegaly. CARDIOVASCULAR: S1 and S2 muffled PULMONARY: diminished breath sounds bilaterally with no wheezing or rhonchi noted. ABDOMEN: soft. Nontender on exam. Thin. Non-distended, normoactive bowel sounds. No palpable organomegaly. MUSCULOSKELETAL: No joint swelling or deformity. EXTREMITIES: No cyanosis, clubbing, or pedal edema. NEUROLOGICAL: Gross neurological examination did not reveal any focal deficits. Diffuse weakness SKIN: No rashes. Assessment: Change in mental status, acute on chronic hepatic encephalopathy with hyperammonia, improved and at baseline Sepsis with gram-negative and gram-positive bacilli bacteremia, present on admission, repeat cultures negative thus far Possible congestive heart failure Troponin elevation up to 0.040, likely type II myocardial infarction per cardiology Atrial fibrillation history, paroxysmal currently rate controlled, history of AICD placement History of coronary artery disease with previous CABG Ischemic cardiomyopathy with an EF of 25 to 30% Chronic obstructive pulmonary disease, not in exacerbation History of hypertension History of liver disease with alcohol abuse history Chronic hypoxic respiratory failure secondary to COPD and uses 2 to 3 L occasionally History of anxiety Continued ongoing nicotine dependence GI prophylaxis DVT prophylaxis Full code Plan: Recommend to continue with current medications and management with infectious disease following. Patient was maintained on ceftriaxone and clindamycin per ID recommendations and awaiting cultures. Repeat cultures thus far negative and urine culture is negative. Patient was noted to have multiple episodes of loose watery stools and C. difficile was positive and is being started on vancomycin 250 every 6 along with IV Flagyl. Awaiting finalized cultures to determine discharge antibiotics and will discuss further with infectious disease regarding discharge planning possibly in the next 24 to 48 hours Patient's ammonia level was elevated at 128 and is maintained on lactulose. Strongly recommend continued lactulose to have 3-4 bowel movements daily. Per nursing documentation patient has been refusing lactulose will follow-up with repeat ammonia level. Ammonia level normal today Sodium level slightly improved at 129 will follow-up with repeat labs. Hold Bumex and Aldactone for now. Patient is currently receiving gentle IV hydration as patient appeared hypovolemic on exam Plan is to return to [facility] on discharge and will discuss with case management along with infectious disease regarding discharge planning hopefully in the next 24 to 48 hours The impression and plan of care has been dictated by nurse consuelo Leal as directed. Dr. Hunter MD I have performed a history and examination and MDM of this patient, discussed the same with the dictator, and agree with the dictator's assessment and plan as written ,documented as a scribe. Based on total visit time, I have performed more than 50% of the visit. Any additional findings or plans will be noted. Objective - Vital Signs Vital signs: Vital Signs Temp 98.4 F 01/04/25 08:08 Pulse 68 01/04/25 12:05 Resp 18 01/04/25 08:08 BP 103/58 01/04/25 08:08 Pulse Ox 94 L 01/04/25 08:08 FiO2 Intake & Output 01/03/25 01/04/25 01/04/25 18:59 06:59 18:59 Intake Total 2190 Output Total 1300 950 Balance -1300 1240 Intake: Oral 2190 Output: Urine 1300 950 Other: Voiding Method Diaper Bedside Commode Incontinent Diaper External Catheter Incontinent External Catheter # Bowel Movements 1 2 - Labs CBC & Chem 7: 01/05/25 04:12 01/05/25 04:12 Labs: Abnormal Lab Results - Last 24 Hours (Table) 01/03/25 01/04/25 01/04/25 Range/Units 14:01 05:43 05:43 RBC 3.35 L (4.40-5.60) X 10*6/uL Hgb 8.4 L (13.0-17.0) g/dL Hct 27.5 L (39.6-50.0) % MCH 25.1 L (27.0-32.0) pg MCHC 30.5 L (32.0-37.0) g/dL RDW 29.0 H (11.5-14.5) % Lymphocytes # 0.78 L (0.90-5.00) X 10*3/uL Sodium 129 L (135-145) mmol/L BUN/Creatinine Ratio 24.60 H (12.00-20.00) Ratio Calcium 8.5 L (8.7-10.3) mg/dL Ammonia 128 H (<30) umol/L Microbiology - Last 24 Hours (Table) 01/02/25 10:29 Blood Culture - Preliminary Blood 12/31/24 21:42 Blood Culture Gram Stain - Final Blood Blood Culture - Preliminary 01/02/25 03:00 Urine Culture - Final Urine,Voided
[2025-01-05 14:40] VITALS: BMI 22.9
--- NOTE | 2025-01-05 15:13 | P.DS ---
Providers Date of admission: 12/31/24 19:39 Expected date of discharge: 01/05/25 Attending physician: Cathie Savage MD Consults: 12/31/24 21:38 Consult Physician Routine Consulting Provider: Vic Moreira Consult Reason/Comments: sepsis Do you want consulting provider notified?: Yes Primary care physician: Kathryn Marin, DO Hospital Course: Final diagnosis Change in mental status, acute on chronic hepatic encephalopathy with hyperammonia, improved and at baseline Sepsis with gram-negative and gram-positive bacilli bacteremia, present on admission, repeat cultures negative thus far Diarrhea, C. difficile positive Troponin elevation up to 0.040, likely type II myocardial infarction per cardiology Atrial fibrillation history, paroxysmal currently rate controlled, history of AICD placement History of coronary artery disease with previous CABG Ischemic cardiomyopathy with an EF of 25 to 30% Chronic obstructive pulmonary disease, not in exacerbation History of hypertension History of liver disease with alcohol abuse history Chronic hypoxic respiratory failure secondary to COPD and uses 2 to 3 L occasionally History of anxiety Continued ongoing nicotine dependence GI prophylaxis DVT prophylaxis Full code Discharge disposition Patient is being discharged in a stable condition with guarded prognosis to [facility]. Patient will follow-up with Dr. Marin in the outpatient setting upon discharge. Patient is to continue with vancomycin 250 mg every 6 hours for 10 days along with Flagyl 500 mg by mouth 3 times daily for 10 days. Repeat labs including CBC, CMP, ammonia in 2 to 3 days. Total time taken is greater than 35 minutes. Hospital course This is a 59 year-old male who was recently admitted with change in mental status, acute on chronic hepatic encephalopathy with hyperammonia and also noted to have positive blood cultures. Patient with sepsis and bacteremia although repeat cultures are negative. Patient was having multiple episodes of loose stool and C. difficile was positive and patient has been started on oral vancomycin and Flagyl. Patient will continue on 250 mg 4 times daily for the next 10 days along with 500 mg of Flagyl 3 times daily for the next 10 days. Patient showing clinical improvement and would like to return home. Patient resides at [facility] and will be returning there. Patient has been cleared by consultations. Recommend repeat CBC, CMP, ammonia level in 2 to 3 days. Patient also has chronic hepatic encephalopathy and needs to be taking lactulose to have at least 2-3 bowel movements daily. Patient has been refusing lactulose here as patient was having significant watery stools which was secondary to the C. difficile. Patient should continue lactulose daily until C. difficile has re solved and diarrhea has improved and then resume 2-3 times daily thereafter for chronic hyperammonemia. Please refer to other consultation notes for further HPI. Currently no reports of chest pain, shortness of breath, or palpitations. Patient is afebrile. No reports of nausea or vomiting and patient is tolerating diet. Patient will be going to [facility] today. Guarded prognosis and high risk for readmission given significant comorbidities. Physical exam: Gen: This is a 59-year-old male who is awake, alert and oriented x 2, baseline, well-developed, thin built, elderly appearing, cachectic HEENT: Head is atraumatic, normocephalic. Pupils equal, round. Sclerae is anicteric. NECK: Supple. No JVD. No lymphadenopathy. No thyromegaly. LUNGS: Diminished breath sounds bilaterally otherwise clear to auscultation. No wheezes or rhonchi. No intercostal retractions. HEART: S1, S2 are muffled ABDOMEN: Soft. Thin, scaphoid bowel sounds are present. No masses. No tenderness. EXTREMITIES: No pedal edema. No calf tenderness. Thin with muscle wasting noted NEUROLOGICAL: Patient is awake, alert and oriented x to, baseline. Cranial nerves 2 through 12 are grossly intact. Diffusely weak Please refer to medication reconciliation sheet for a list of medications. The impression and plan of care has been dictated by Shira Irizarry, Nurse Practitioner as directed. Dr. Harrison,, I have performed a history and examination and MDM of this patient, discussed the same with the dictator, and agree with the dictator's assessment and plan as written ,documented as a scribe. Based on total visit time, I have performed more than 50% of the visit. Patient Condition at Discharge: Stable Plan - Discharge Summary Discharge Rx Participant: Yes New Discharge Prescriptions: New Ipratropium-Albuterol Nebulize [Duoneb 0.5 mg-3 mg/3 ml Soln] 3 ml INHALATION RT-QID each metroNIDAZOLE [Flagyl] 500 mg PO TID 10 Days #30 tab Midodrine [ProAmatine] 10 mg PO TID-W/MEALS tab Acetaminophen Tab [Tylenol] 650 mg PO Q6HR PRN tab PRN Reason: Fever And/ Or Pain Vancomycin HCl 250 mg PO QID 10 Days #40 cap Ipratropium-Albuterol Nebulize [Duoneb 0.5 mg-3 mg/3 ml Soln] 3 ml INHALATION RT-Q2H PRN each PRN Reason: Shortness Of Breath Or Wheezing Continue Sacubitril/Valsartan [Entresto 24 mg-26 mg Tablet] 0.5 tab PO BID Apixaban [Eliquis] 5 mg PO BID@0700,1900 Ferrous Sulfate [Iron (65 MG Elemental)] 325 mg PO DAILY Omeprazole 20 mg PO DAILY HYDROcodone/APAP 5-325MG [[place] 5-325] 1 tab PO Q6H PRN #4 tab PRN Reason: Pain Discontinued Midodrine [ProAmatine] 5 mg PO TID@0700,1300,1900 Ipratropium-Albuterol Nebulize [Duoneb 0.5 mg-3 mg/3 ml Soln] 3 ml INHALATION RT-QID@05,11,17,23 Bumetanide [BUMEX] 1 mg PO DAILY 30 Days #30 tab No Action Metoprolol Tartrate [Lopressor] 25 mg PO BID #60 tab Ergocalciferol [Vitamin D2 (1250 Mcg = 56835 Iu)] 1,250 mcg PO CELETSE Budesonide [Pulmicort] 0.5 mg INHALATION RT-BID Melatonin 5 mg PO HS Sodium Chloride [Mcmillin [place]] 1 spray EA NOSTRIL Q1H PRN PRN Reason: prophylaxis, pulmonary disease Spironolactone [Aldactone] 25 mg PO DAILY 30 Days #30 tab Empagliflozin [Jardiance] 10 mg PO DAILY Miconazole Nitrate 2% Powder 1 applic TOPICAL BID Lactulose 20 gm PO BID Magnesium Oxide [Magox 400] 400 mg PO DAILY Atorvastatin [Lipitor] 40 mg PO HS Naloxone HCl [Narcan] 4 mg NASAL ONCE PRN PRN Reason: suspected overdose Discharge Medication List Metoprolol Tartrate [Lopressor] 25 mg PO BID #60 tab 07/25/24 [Rx] Empagliflozin [Jardiance] 10 mg PO DAILY 09/30/24 [History] Ergocalciferol [Vitamin D2 (1250 Mcg = 72443 Iu)] 1,250 mcg PO CELESTE 10/06/24 [History] Atorvastatin [Lipitor] 40 mg PO HS 12/19/24 [History] Budesonide [Pulmicort] 0.5 mg INHALATION RT-BID 12/19/24 [History] Lactulose 20 gm PO BID 12/19/24 [History] Magnesium Oxide [Magox 400] 400 mg PO DAILY 12/19/24 [History] Melatonin 5 mg PO HS 12/19/24 [History] Miconazole Nitrate 2% Powder 1 applic TOPICAL BID 12/19/24 [History] Naloxone HCl [Narcan] 4 mg NASAL ONCE PRN 12/19/24 [History] Sodium Chloride [Mcmillin [place]] 1 spray EA NOSTRIL Q1H PRN 12/19/24 [History] Spironolactone [Aldactone] 25 mg PO DAILY 30 Days #30 tab 12/26/24 [Rx] Apixaban [Eliquis] 5 mg PO BID@0700,1900 12/31/24 [History] Ferrous Sulfate [Iron (65 MG Elemental)] 325 mg PO DAILY 12/31/24 [History] Omeprazole 20 mg PO DAILY 12/31/24 [History] Sacubitril/Valsartan [Entresto 24 mg-26 mg Tablet] 0.5 tab PO BID 12/31/24 [History] Acetaminophen Tab [Tylenol] 650 mg PO Q6HR PRN tab 01/05/25 [Rx] HYDROcodone/APAP 5-325MG [[place] 5-325] 1 tab PO Q6H PRN #4 tab 01/05/25 [Rx] Ipratropium-Albuterol Nebulize [Duoneb 0.5 mg-3 mg/3 ml Soln] 3 ml INHALATION RT-Q2H PRN each 01/05/25 [Rx] Ipratropium-Albuterol Nebulize [Duoneb 0.5 mg-3 mg/3 ml Soln] 3 ml INHALATION RT-QID each 01/05/25 [Rx] Midodrine [ProAmatine] 10 mg PO TID-W/MEALS tab 01/05/25 [Rx] Vancomycin HCl 250 mg PO QID 10 Days #40 cap 01/05/25 [Rx] metroNIDAZOLE [Flagyl] 500 mg PO TID 10 Days #30 tab 01/05/25 [Rx] Follow up Appointment(s)/Referral(s): Kathryn Marin DO [Primary Care Provider] - 1-2 days Activity/Diet/Wound Care/Special Instructions: Patient is going to [facility] [employer] Activity as tolerated Continue with oral vancomycin 250 mg 4 times daily for the next 10 days along with oral Flagyl 500 mg 3 times daily for the next 10 days Repeat labs to monitor CBC, CMP, magnesium, and ammonia level in 2 to 3 days Strongly recommend lactulose daily while completing vancomycin and then increase to 2-3 times daily so patient is having 3-4 bowel movements daily for chronic hyperammonemia Please hold Bumex and Aldactone until repeat labs in 2 to 3 days
--- NOTE | 2025-01-05 15:16 | P.PN ---
Subjective Progress Note Date: 01/05/25 Principal diagnosis: Reason for follow-up is bacteremia Patient is a 59-year-old male with a past medical history significant for atrial fibrillation coronary artery disease hypertension COPD liver disease presenting to the hospital for evaluation of mental status changes, patient will complete show positive UA mild blood cultures, UA positive with gram-negative bacilli and as well as gram-positive bacilli. On today's evaluation that is 01/05/2025, the patient continues to be afebrile, the patient is on room air and breathing comfortably, the Pt denies having any chest pain or cough, the patient denies having any abdominal pain no vomiting and diarrhea has slowed down. Patient white count is 4.68, creatinine 0.9 blood culture repeat has been negative Objective - Vital Signs Vital signs: Vital Signs Temp 98.2 F 01/05/25 08:43 Pulse 66 01/05/25 08:43 Resp 18 01/05/25 08:43 BP 95/55 01/05/25 08:43 Pulse Ox 99 01/05/25 08:43 FiO2 Intake & Output 01/04/25 01/05/25 01/05/25 18:59 06:59 18:59 Output Total 475 300 Balance -475 -300 Output: Urine 475 300 Other: # Voids 1 1 # Bowel Movements 3 1 - Exam GENERAL DESCRIPTION: Middle-age male lying in bed in no distress RESPIRATORY SYSTEM: Unlabored breathing , decreased breath sounds at bases HEART: S1 S2 regular rate and rhythm , ABDOMEN: Soft , mild distention but no significant tenderness EXTREMITIES: No edema feet - Labs CBC & Chem 7: 01/05/25 04:12 01/05/25 04:12 Labs: Abnormal Lab Results - Last 24 Hours (Table) 01/05/25 01/05/25 Range/Units 04:12 04:12 RBC 3.06 L (4.40-5.60) X 10*6/uL Hgb 7.7 L (13.0-17.0) g/dL Hct 25.2 L (39.6-50.0) % MCH 25.2 L (27.0-32.0) pg MCHC 30.6 L (32.0-37.0) g/dL RDW 28.4 H (11.5-14.5) % Sodium 124 L (135-145) mmol/L Carbon Dioxide 21.5 L (21.6-31.8) mmol/L BUN/Creatinine Ratio 26.67 H (12.00-20.00) Ratio Calcium 8.0 L (8.7-10.3) mg/dL Microbiology - Last 24 Hours (Table) 01/02/25 10:29 Blood Culture - Preliminary Blood Assessment and Plan (1) UTI (urinary tract infection) Current Visit: Yes Status: Acute Code(s): N39.0 - URINARY TRACT INFECTION, SITE NOT SPECIFIED SNOMED Code(s): 25045891 (2) Bacteremia Current Visit: Yes Status: Acute Code(s): R78.81 - BACTEREMIA SNOMED Code(s): 0080028 (3) C. difficile colitis Current Visit: Yes Status: Acute Code(s): A04.72 - ENTEROCOLITIS D/T CLOSTRIDIUM DIFFICILE, NOT SPCF RECUR SNOMED Code(s): 538625637 Plan: 1patient presented hospital with significant mental status changes and this patient noted to have a positive UA questionable urinary source has no other obvious focus of infection abdomen was soft medical examination chest x-ray was clear no evidence of any cellulitis or joint swelling 2patient did have a positive blood culture which has been finalized as Clostridium perfringens usually of a GI source however the patient did have a CT abdominal pelvis did not mention any abscess or colitis 3patient stool for C. difficile also came back positive 4-patient has shown clinical improvement he will finish therapy with oral Flagyl and vancomycin x 10 days, discussed with the [employer] for admitting team Dictation was produced using [employer] dictation software. please excuse any grammatical, word or spelling errors. Time with Patient: Less than 30
--- NOTE | 2025-01-06 15:08 | P.PN ---
Subjective Progress Note Date: 01/06/25 Principal diagnosis: Reason for follow-up is bacteremia Patient is a 59-year-old male with a past medical history significant for atrial fibrillation coronary artery disease hypertension COPD liver disease presenting to the hospital for evaluation of mental status changes, patient will complete show positive UA mild blood cultures, UA positive with gram-negative bacilli and as well as gram-positive bacilli. On today's evaluation that is 01/06/2025, patient did not have any fever and denies any chills, patient is breathing comfortably on room air, patient with no chest pain or cough patient did not have any abdominal pain nausea vomiting and diarrhea has slowed on. Patient did not have lab draw today blood cultures been has been negative so far Objective - Vital Signs Vital signs: Vital Signs Temp 97.6 F 01/06/25 13:47 Pulse 62 01/06/25 13:47 Resp 16 01/06/25 13:47 BP 83/53 01/06/25 13:47 Pulse Ox 100 01/06/25 13:47 FiO2 Intake & Output 01/05/25 01/06/25 01/06/25 18:59 06:59 18:59 Intake Total 1650 Output Total 300 100 Balance -300 1650 -100 Weight 72.575 kg Intake: Oral 1650 Output: Urine 300 100 Other: # Voids 1 8 # Bowel Movements 1 2 - Exam GENERAL DESCRIPTION: Middle-age male lying in bed in no distress RESPIRATORY SYSTEM: Unlabored breathing , decreased breath sounds at bases HEART: S1 S2 regular rate and rhythm , ABDOMEN: Soft , mild distention but no significant tenderness EXTREMITIES: No edema feet - Labs CBC & Chem 7: 01/05/25 04:12 01/05/25 04:12 Labs: Microbiology - Last 24 Hours (Table) 01/02/25 10:29 Blood Culture - Preliminary Blood Assessment and Plan (1) UTI (urinary tract infection) Current Visit: Yes Status: Acute Code(s): N39.0 - URINARY TRACT INFECTION, SITE NOT SPECIFIED SNOMED Code(s): 80133299 (2) Bacteremia Current Visit: Yes Status: Acute Code(s): R78.81 - BACTEREMIA SNOMED Code(s): 0986875 (3) C. difficile colitis Current Visit: Yes Status: Acute Code(s): A04.72 - ENTEROCOLITIS D/T CLOSTRIDIUM DIFFICILE, NOT SPCF RECUR SNOMED Code(s): 078883527 Plan: 1patient presented hospital with significant mental status changes and this patient noted to have a positive UA questionable urinary source has no other obvious focus of infection abdomen was soft medical examination chest x-ray was clear no evidence of any cellulitis or joint swelling 2patient did have a positive blood culture which has been finalized as Clostrid ium perfringens usually of a GI source however the patient did have a CT abdominal pelvis did not mention any abscess or colitis 3patient stool for C. difficile also came back positive 4-patient has shown clinical improvement 5patient is currently being treated withl Flagyl and vancomycin and is currently waiting for placement Dictation was produced using [email or web address] dictation software. please excuse any grammatical, word or spelling errors. Time with Patient: Less than 30
--- NOTE | 2025-01-07 15:44 | P.PN ---
Subjective Progress Note Date: 01/07/25 Principal diagnosis: Reason for follow-up is bacteremia Patient is a 59-year-old male with a past medical history significant for atrial fibrillation coronary artery disease hypertension COPD liver disease presenting to the hospital for evaluation of mental status changes, patient will complete show positive UA mild blood cultures, UA positive with gram-negative bacilli and as well as gram-positive bacilli. On today's evaluation that is 01/07/2025, Patient is afebrile patient is currently on room air and denies having any shortness of breath, the patient denies any chest pain or cough, the patient denies any nausea vomiting did not have any abdominal pain and improvement in the diarrhea. Patient did not have a lab draw today repeat culture have been negative so far Objective - Vital Signs Vital signs: Vital Signs Temp 98.0 F 01/07/25 07:21 Pulse 67 01/07/25 07:21 Resp 17 01/07/25 07:21 BP 89/48 01/07/25 12:19 Pulse Ox 96 01/07/25 07:21 FiO2 Intake & Output 01/06/25 01/07/25 01/07/25 18:59 06:59 18:59 Output Total 100 600 150 Balance -100 -600 -150 Weight 75 kg Output: Urine 100 600 150 Other: Voiding Method Urinal # Voids 5 - Exam GENERAL DESCRIPTION: Middle-age male lying in bed in no distress RESPIRATORY SYSTEM: Unlabored breathing , decreased breath sounds at bases HEART: S1 S2 regular rate and rhythm , ABDOMEN: Soft , mild distention but no significant tenderness EXTREMITIES: No edema feet - Labs CBC & Chem 7: 01/05/25 04:12 01/05/25 04:12 Assessment and Plan (1) UTI (urinary tract infection) Current Visit: Yes Status: Acute Code(s): N39.0 - URINARY TRACT INFECTION, SITE NOT SPECIFIED SNOMED Code(s): 50364700 (2) Bacteremia Current Visit: Yes Status: Acute Code(s): R78.81 - BACTEREMIA SNOMED Code(s): 3315328 (3) C. difficile colitis Current Visit: Yes Status: Acute Code(s): A04.72 - ENTEROCOLITIS D/T CLOSTRIDIUM DIFFICILE, NOT SPCF RECUR SNOMED Code(s): 305761073 Plan: 1patient presented hospital with significant mental status changes and this patient noted to have a positive UA questionable urinary source has no other obvious focus of infection abdomen was soft medical examination chest x-ray was clear no evidence of any cellulitis or joint swelling 2patient did have a positive blood culture which has been finalized as Clostridium perfringens usually of a GI source however the patient did have a CT abdominal pelvis did not mention any abscess or colitis 3patient stool for C. difficile also came back positive 4-patient has shown clinical improvement and white count has been normal we will continue the Flagyl and vancomycin and monitor clinical course closely Dictation was produced using [employer] dictation software. please excuse any grammatical, word or spelling errors. Time with Patient: Less than 30
--- NOTE | 2025-01-07 23:48 | PN ---
PROGRESS NOTE DATE OF SERVICE: 01/07/2025 SUBJECTIVE: This is a 59-year-old gentleman, who was admitted with change in mental status and hyperammonemia, is being closely monitored. No chest pain or palpitation. PAST MEDICAL HISTORY: Reviewed. REVIEW OF SYSTEMS: A 14-point review of systems is negative except as mentioned earlier. PHYSICAL EXAMINATION: VITAL SIGNS: Pulse is 67, blood pressure 124/69, respirations 17. CHEST: Scattered rhonchi. ABDOMEN: Soft. LABORATORY DATA: Reviewed. ASSESSMENT: 1. Acute on chronic hepatic encephalopathy with hyperammonemia. 2. Sepsis with gram-negative and gram-positive bacteremia. 3. Clostridium difficile colitis. 4. Multiple complex medical issues. Please refer to the previous chart. RECOMMENDATIONS: Recommend to continue current management and continue symptomatic treatment. Otherwise, continue with PT, OT evaluation. Repeat labs. Possible ECF rehab. Further recommendations to follow. MMODL / IJN: [id number] /
[2025-01-08 08:47] LABS: HCT 22.6 % (39.6-50.0); MCH 25.8 pg (27.0-32.0); MCHC 30.5 g/dL (32.0-37.0); MCV 84.6 FL (80.0-97.0); Mean Platelet Volume 10.9 FL (9.5-12.2); NRBC Per 100 WBC 0 X 10*3/uL (0.00-0.01); Platelet Count 178 X 10*3/uL (140-440); RBC 2.67 X 10*6/uL (4.40-5.60); RDW 28.8 % (11.5-14.5); WBC 3.58 X 10*3/uL (4.50-10.00)
[2025-01-08 08:48] LABS: BUN/Creat Ratio 25.83 Ratio (12.00-20.00); Blood Urea Nitrogen 15.5 mg/dL (9.0-27.0); Calcium 8.1 mg/dL (8.7-10.3); Carbon Dioxide 20.8 mmol/L (21.6-31.8); Chloride 97 mmol/L (96-109); Glucose 82 mg/dL (70-110); Potassium 4.3 mmol/L (3.5-5.5); Sodium 125 mmol/L (135-145)
[2025-01-08 09:13] LABS: Basophils # (A) 0.05 X 10*3/uL (0.00-0.10); Basophils % (A) 1.4 %; Eosinophils # (A) 0.13 X 10*3/uL (0.04-0.35); Eosinophils % (A) 3.6 %; HGB 6.9 g/dL (13.0-17.0); Lymphocytes # (A) 0.79 X 10*3/uL (0.90-5.00); Lymphocytes % (A) 22.1 %; Monocytes # (A) 0.39 X 10*3/uL (0.20-1.00); Monocytes % (A) 10.9 %; Neutrophils % (A) 61.4 %
--- NOTE | 2025-01-08 17:05 | P.PN ---
Subjective Progress Note Date: 01/08/25 Principal diagnosis: Reason for follow-up is bacteremia Patient is a 59-year-old male with a past medical history significant for atrial fibrillation coronary artery disease hypertension COPD liver disease presenting to the hospital for evaluation of mental status changes, patient will complete show positive UA mild blood cultures, UA positive with gram-negative bacilli and as well as gram-positive bacilli. On today's evaluation that is 01/08/2025, patient has been afebrile, patient is breathing comfortably and is currently on room air, patient denies having any significant cough no chest pain, patient denies nausea vomiting or abdominal pain and did have resolution of his diarrhea. Patient did have a white count of 3.58 creatinine 0.6 Objective - Vital Signs Vital signs: Vital Signs Temp 98.2 F 01/08/25 12:50 Pulse 65 01/08/25 13:29 Resp 18 01/08/25 13:29 BP 105/63 01/08/25 13:29 Pulse Ox 97 01/08/25 13:29 FiO2 Intake & Output 01/07/25 01/08/25 01/08/25 18:59 06:59 18:59 Intake Total 200 Output Total 450 Balance -450 200 Intake: Oral 200 Blood Product 0 Unit 0 Output: Urine 450 Other: Voiding Method Toilet Urinal # Voids 1 1 1 # Bowel Movements 2 1 1 - Exam GENERAL DESCRIPTION: Middle-age male lying in bed in no distress RESPIRATORY SYSTEM: Unlabored breathing , decreased breath sounds at bases HEART: S1 S2 regular rate and rhythm , ABDOMEN: Soft , mild distention but no significant tenderness EXTREMITIES: No edema feet - Labs CBC & Chem 7: 01/08/25 03:24 01/08/25 03:24 Labs: Abnormal Lab Results - Last 24 Hours (Table) 01/08/25 01/08/25 01/08/25 Range/Units 03:24 03:24 09:31 WBC 3.58 L (4.50-10.00) X 10*3/uL RBC 2.67 L (4.40-5.60) X 10*6/uL Hgb 6.9 A* (13.0-17.0) g/dL Hct 22.6 L (39.6-50.0) % MCH 25.8 L (27.0-32.0) pg MCHC 30.5 L (32.0-37.0) g/dL RDW 28.8 H (11.5-14.5) % Lymphocytes # 0.79 L (0.90-5.00) X 10*3/uL Sodium 125 L (135-145) mmol/L Carbon Dioxide 20.8 L (21.6-31.8) mmol/L BUN/Creatinine Ratio 25.83 H (12.00-20.00) Ratio Calcium 8.1 L (8.7-10.3) mg/dL Crossmatch See Detail Microbiology - Last 24 Hours (Table) 01/02/25 10:29 Blood Culture - Final Blood Assessment and Plan (1) UTI (urinary tract infection) Current Visit: Yes Status: Acute Code(s): N39.0 - URINARY TRACT INFECTION, SITE NOT SPECIFIED SNOMED Code(s): 56648802 (2) Bacteremia Current Visit: Yes Status: Acute Code(s): R78.81 - BACTEREMIA SNOMED Code(s): 3838178 (3) C. difficile colitis Current Visit: Yes Status: Acute Code(s): A04.72 - ENTEROCOLITIS D/T CLOSTRIDIUM DIFFICILE, NOT SPCF RECUR SNOMED Code(s): 037270706 Plan: 1patient presented hospital with significant mental status changes and this patient noted to have a positive UA questionable urinary source has no other obvious focus of infection abdomen was soft medical examination chest x-ray was clear no evidence of any cellulitis or joint swelling 2patient did have a positive blood culture which has been finalized as Clostridium perfringens usually of a GI source however the patient did have a CT abdominal pelvis did not mention any abscess or colitis 3patient stool for C. difficile also came back positive, blood culture has been negative 4-patient is afebrile white count normal blood culture to be negative 5we will continue the Flagyl and vancomycin currently waiting for insurance Auth for rehab placement Dictation was produced using [employer] dictation software. please excuse any grammatical, word or spelling errors. Time with Patient: Less than 30
--- NOTE | 2025-01-09 05:06 | P.PN ---
Subjective Progress Note Date: 01/08/25 This is a 59-year-old man who resides at [facility] who came in with encephalopathy with change in mental status with acute on chronic hepatic encephalopathy. Ammonia levels noted to be elevated and patient maintained on lactulose. Per nursing documentation patient has been refusing lactulose and reports been having bowel movements. Will repeat ammonia level. Cultures pending and patient is maintained on antibiotics with infectious disease following. Patient is afebrile and denies any chest pain or shortness of breath. Patient continues to ask daily if he can return home. White count is normal at 5.89 and hemoglobin is stable at 8.4, sodium slightly worsened at 127 with a potassium of 5.0 and creatinine is 1.0. Patient is having increased amounts of loose stools and C. difficile has been ordered and pending. Will also hold Bumex and Aldactone as sodium is trending down and patient with poor oral intake and continued diarrhea. 01/04/2025 Patient is seen in follow-up today more awake and alert today reporting multiple episodes of loose watery stools. Patient was positive for C. difficile and being started on vancomycin to 50 every 6 hours along with IV Flagyl and clindamycin and ceftriaxone will be discontinued as this was discussed with infectious disease. Patient's cultures including urine was negative and recent blood culture is negative. Ammonia has improved as well and will hold lactulose for now as patient is having multiple episodes of loose stools. Blood pressures are on the softer side and will increase midodrine to 10 mg 3 times daily. Continue gentle hydration for now and will follow-up on repeat labs. Replace electrolytes per protocol. Patient will be returning to [facility] where he resides. 01/08/2025 Patient is seen in follow-up with infectious disease following maintained on Flagyl along with oral vancomycin showing some clinical improvements. Hemoglobin was noted to be 6.9 and will transfuse 1 unit of PRBC and follow-up on repeat labs. Diuretics continue to be on hold as patient was maintained on gentle hydration and will discontinue. Sodium is 125 today and recommend follow-up repeat labs and replace electrolytes per protocol. Patient has not been on lactulose and will need to resume once C. difficile has resolved. Patient has chronic hepatic encephalopathy. Plan is for discharge to [facility] currently pending insurance authorization. Review of systems: Constitutional: reports of fatigue, no fever, or chills Cardiovascular: No reports of chest pain or palpitations Respiratory: No reports of shortness of breath or cough GI: No reports of nausea, no reports of vomiting, reports multiple loose bowel movements that are improving : No reports of dysuria or retention Neurovascular: reports of generalized weakness All medications have been reviewed PHYSICAL EXAMINATION: GENERAL: The patient is alert and oriented x2 baseline, Well developed, elderly appearing, ill-appearing, thin built HEENT: Pupils are round and equally reacting to light. EOMI. no scleral icterus. No conjunctival pallor. Normocephalic, atraumatic. No pharyngeal erythema. No thyromegaly. CARDIOVASCULAR: S1 and S2 muffled PULMONARY: diminished breath sounds bilaterally with no wheezing or rhonchi noted. some bronchial congested noted with a cough ABDOMEN: soft. Nontender on exam. Thin. Non-distended, normoactive bowel sounds. No palpable organomegaly. MUSCULOSKELETAL: No joint swelling or deformity. EXTREMITIES: No cyanosis, clubbing, or pedal edema. NEUROLOGICAL: Gross neurological examination did not reveal any focal deficits. Diffuse weakness SKIN: No rashes. Assessment: Change in mental status, acute on chronic hepatic encephalopathy with hyperammonia, improved and at baseline Sepsis with gram-negative and gram-positive bacilli bacteremia, present on admission, repeat cultures negative thus far Troponin elevation up to 0.040, likely type II myocardial infarction per cardiology Diarrhea, positive for C. difficile, maintained on oral vancomycin Atrial fibrillation history, paroxysmal currently rate controlled, history of AICD placement History of coronary artery disease with previous CABG Ischemic cardiomyopathy with an EF of 25 to 30% Chronic obstructive pulmonary disease, not in exacerbation History of hypertension History of liver disease with alcohol abuse history Chronic hypoxic respiratory failure secondary to COPD and uses 2 to 3 L occasionally History of anxiety Continued ongoing nicotine dependence GI prophylaxis DVT prophylaxis Full code Plan: Recommend to continue with current medications and management with infectious disease following. Patient is currently continued on IV Flagyl along with oral Vanco per ID recommendations. Cultures thus far are negative Hemoglobin was noted to be 6.9 and will transfuse 1 unit of PRBC and follow-up on repeat labs Patient's ammonia level was elevated at 128 and is maintained on lactulose. Strongly recommend continued lactulose to have 3-4 bowel movements daily. Per nursing documentation patient had been refusing lactulose will follow-up with repeat ammonia level. Lactulose currently on hold as patient had acute C. difficile maintained on vancomycin. Will resume lactulose once daily and may increase to 2 or 3 times daily after vancomycin is complete Encouraged oral intake Sodium level 125 and patient was maintained on hydration with Bumex and Aldactone being held. Will discontinue IV fluids and follow-up on repeat labs. Clinically patient does not appear volume overloaded and will resume Bumex and Aldactone on discharge. Plan is to return to [facility] on discharge and apparently needs insurance authorization which remains pending. Patient was at [facility] for continued PT/OT therapy and would like to return to finish therapy prior to returning home Possible discharge planning in the next 24 hours pending insurance authorization to [facility] The impression and plan of care has been dictated by Shira Irizarry, nurse practitioner as directed. Dr. Rojas MD I have performed a history and examination and MDM of this patient, discussed the same with the dictator, and agree with the dictator's assessment and plan as written ,documented as a scribe. Based on total visit time, I have performed more than 50% of the visit. Any additional findings or plans will be noted. Objective - Vital Signs Vital signs: Vital Signs Temp 97.3 F L 01/08/25 07:20 Pulse 64 01/08/25 07:20 Resp 18 01/08/25 07:20 BP 95/53 01/08/25 07:20 Pulse Ox 99 01/08/25 07:20 FiO2 Intake & Output 01/07/25 01/08/25 01/08/25 18:59 06:59 18:59 Intake Total 200 Output Total 450 Balance -450 200 Intake: Oral 200 Output: Urine 450 Other: Voiding Method Toilet Urinal # Voids 1 1 1 # Bowel Movements 2 1 1 - Labs CBC & Chem 7: 01/11/25 05:49 01/11/25 05:49 Labs: Abnormal Lab Results - Last 24 Hours (Table) 01/08/25 01/08/25 Range/Units 03:24 03:24 WBC 3.58 L (4.50-10.00) X 10*3/uL RBC 2.67 L (4.40-5.60) X 10*6/uL Hgb 6.9 A* (13.0-17.0) g/dL Hct 22.6 L (39.6-50.0) % MCH 25.8 L (27.0-32.0) pg MCHC 30.5 L (32.0-37.0) g/dL RDW 28.8 H (11.5-14.5) % Lymphocytes # 0.79 L (0.90-5.00) X 10*3/uL Sodium 125 L (135-145) mmol/L Carbon Dioxide 20.8 L (21.6-31.8) mmol/L BUN/Creatinine Ratio 25.83 H (12.00-20.00) Ratio Calcium 8.1 L (8.7-10.3) mg/dL Microbiology - Last 24 Hours (Table) 01/02/25 10:29 Blood Culture - Final Blood
[2025-01-09 08:17] LABS: Basophils # (A) 0.05 X 10*3/uL (0.00-0.10); Basophils % (A) 1.2 %; Eosinophils # (A) 0.13 X 10*3/uL (0.04-0.35); HCT 25.2 % (39.6-50.0); HGB 7.6 g/dL (13.0-17.0); Lymphocytes # (A) 0.72 X 10*3/uL (0.90-5.00); Lymphocytes % (A) 16.8 %; MCH 26.2 pg (27.0-32.0); MCHC 30.2 g/dL (32.0-37.0); MCV 86.9 FL (80.0-97.0); Mean Platelet Volume 11.3 FL (9.5-12.2); Monocytes # (A) 0.54 X 10*3/uL (0.20-1.00); Monocytes % (A) 12.6 %; NRBC Per 100 WBC 0 X 10*3/uL (0.00-0.01); Neutrophils # (A) 2.83 X 10*3/uL (1.80-7.70); Neutrophils % (A) 65.9 %; Platelet Count 180 X 10*3/uL (140-440); WBC 4.29 X 10*3/uL (4.50-10.00)
[2025-01-09 09:00] LABS: BUN/Creat Ratio 21.88 Ratio (12.00-20.00); Blood Urea Nitrogen 17.5 mg/dL (9.0-27.0); Calcium 8.1 mg/dL (8.7-10.3); Carbon Dioxide 21.5 mmol/L (21.6-31.8); Chloride 98 mmol/L (96-109); Glucose 88 mg/dL (70-110); Magnesium 1.6 mg/dL (1.5-2.4); Potassium 4.1 mmol/L (3.5-5.5); Sodium 125 mmol/L (135-145)
--- NOTE | 2025-01-09 14:50 | US ---
EXAMINATION TYPE: US abdomen limited DATE OF EXAM: 01/09/2025 COMPARISON: US & CT CLINICAL INDICATION: Male, 59 years old with history of assess ascites for possible paracentesis; ABD distention TECHNIQUE: Grayscale imaging of the abdomen for ascites. FINDINGS/IMPRESSION: Moderate amount of ascites, largest pocket within right flank. [facility], , 01/09/2025 2:47 PM
--- NOTE | 2025-01-09 15:09 | P.PN ---
Subjective Progress Note Date: 01/09/25 Principal diagnosis: Reason for follow-up is bacteremia Patient is a 59-year-old male with a past medical history significant for atrial fibrillation coronary artery disease hypertension COPD liver disease presenting to the hospital for evaluation of mental status changes, patient will complete show positive UA mild blood cultures, UA positive with gram-negative bacilli and as well as gram-positive bacilli. On today's evaluation that is 01/09/2025, Patient is afebrile this morning patient denies having any chest pain shortness of breath or cough, the patient is currently on room air, patient denies any abdominal pain no diarrhea no nausea no vomiting. Patient white count is 4.29 creatinine 0.8 blood culture repeat has been negative Objective - Vital Signs Vital signs: Vital Signs Temp 98.5 F 01/09/25 14:52 Pulse 60 01/09/25 14:52 Resp 17 01/09/25 14:52 BP 100/53 01/09/25 14:52 Pulse Ox 100 01/09/25 14:52 FiO2 Intake & Output 01/08/25 01/09/25 01/09/25 18:59 06:59 18:59 Intake Total 483 120 Balance 483 120 Weight 74.5 kg Intake: Oral 200 120 Blood Product 283 Rc Pheresis 2 As3 Unit 283 [id number] Other: # Voids 1 2 # Bowel Movements 1 - Exam GENERAL DESCRIPTION: Middle-age male lying in bed in no distress RESPIRATORY SYSTEM: Unlabored breathing , decreased breath sounds at bases HEART: S1 S2 regular rate and rhythm , ABDOMEN: Soft , mild distention but no significant tenderness EXTREMITIES: No edema feet - Labs CBC & Chem 7: 01/09/25 03:38 01/09/25 03:38 Labs: Abnormal Lab Results - Last 24 Hours (Table) 01/09/25 01/09/25 Range/Units 03:38 03:38 WBC 4.29 L (4.50-10.00) X 10*3/uL RBC 2.90 L (4.40-5.60) X 10*6/uL Hgb 7.6 L (13.0-17.0) g/dL Hct 25.2 L (39.6-50.0) % MCH 26.2 L (27.0-32.0) pg MCHC 30.2 L (32.0-37.0) g/dL RDW 28.0 H (11.5-14.5) % Lymphocytes # 0.72 L (0.90-5.00) X 10*3/uL Sodium 125 L (135-145) mmol/L Carbon Dioxide 21.5 L (21.6-31.8) mmol/L BUN/Creatinine Ratio 21.88 H (12.00-20.00) Ratio Calcium 8.1 L (8.7-10.3) mg/dL Assessment and Plan (1) UTI (urinary tract infection) Current Visit: Yes Status: Acute Code(s): N39.0 - URINARY TRACT INFECTION, SITE NOT SPECIFIED SNOMED Code(s): 34005846 (2) Bacteremia Current Visit: Yes Status: Acute Code(s): R78.81 - BACTEREMIA SNOMED Code(s): 0180978 (3) C. difficile colitis Current Visit: Yes Status: Acute Code(s): A04.72 - ENTEROCOLITIS D/T CLOSTRIDIUM DIFFICILE, NOT SPCF RECUR SNOMED Code(s): 348487189 Plan: 1patient presented hospital with significant mental status changes and this patient noted to have a positive UA questionable urinary source has no other obvious focus of infection abdomen was soft medical examination chest x-ray was clear no evidence of any cellulitis or joint swelling 2patient did have a positive blood culture which has been finalized as Clostridium perfringens usually of a GI source however the patient did have a CT abdominal pelvis did not mention any abscess or colitis 3patient stool for C. difficile also came back positive, blood culture has been negative 4-patient is afebrile white count normal blood culture to be negative, currently being treated with Flagyl and vancomycin to finish his course of therapy, plan already discussed with SOFTWARE ENG[employer]IATE MANAGER for admitting team Dictation was produced using [employer] dictation software. please excuse any grammatical, word or spelling errors. Time with Patient: Less than 30
--- NOTE | 2025-01-10 07:17 | P.PN ---
Subjective Progress Note Date: 01/09/25 This is a 59-year-old man who resides at [facility] who came in with encephalopathy with change in mental status with acute on chronic hepatic encephalopathy. Ammonia levels noted to be elevated and patient maintained on lactulose. Per nursing documentation patient has been refusing lactulose and reports been having bowel movements. Will repeat ammonia level. Cultures pending and patient is maintained on antibiotics with infectious disease following. Patient is afebrile and denies any chest pain or shortness of breath. Patient continues to ask daily if he can return home. White count is normal at 5.89 and hemoglobin is stable at 8.4, sodium slightly worsened at 127 with a potassium of 5.0 and creatinine is 1.0. Patient is having increased amounts of loose stools and C. difficile has been ordered and pending. Will also hold Bumex and Aldactone as sodium is trending down and patient with poor oral intake and continued diarrhea. 01/04/2025 Patient is seen in follow-up today more awake and alert today reporting multiple episodes of loose watery stools. Patient was positive for C. difficile and being started on vancomycin to 50 every 6 hours along with IV Flagyl and clindamycin and ceftriaxone will be discontinued as this was discussed with infectious disease. Patient's cultures including urine was negative and recent blood culture is negative. Ammonia has improved as well and will hold lactulose for now as patient is having multiple episodes of loose stools. Blood pressures are on the softer side and will increase midodrine to 10 mg 3 times daily. Continue gentle hydration for now and will follow-up on repeat labs. Replace electrolytes per protocol. Patient will be returning to [facility] where he resides. 01/08/2025 Patient is seen in follow-up with infectious disease following maintained on Flagyl along with oral vancomycin showing some clinical improvements. Hemoglobin was noted to be 6.9 and will transfuse 1 unit of PRBC and follow-up on repeat labs. Diuretics continue to be on hold as patient was maintained on gentle hydration and will discontinue. Sodium is 125 today and recommend follow-up repeat labs and replace electrolytes per protocol. Patient has not been on lactulose and will need to resume once C. difficile has resolved. Patient has chronic hepatic encephalopathy. Plan is for discharge to [facility] currently pending insurance authorization. 01/09/2025 Patient is seen in follow-up today was awaiting insurance authorization to re turn to [facility] for continued physical therapy although the insurance is denying recommending a peer to peer which is scheduled for today. Patient is afebrile with no reports of chest pain or shortness of breath. Patient reports diarrhea is improved although continues to be loose. Patient is maintained on vancomycin oral along with Flagyl. Patient reports he resides with his brother and will be going home if insurance denies him going to rehab. Will arrange for home care outpatient. Patient's abdomen appears somewhat distended and will obtain an ultrasound for possible paracentesis. Diuretics and Aldactone have been on hold and sodium remains 125. Recommend reevaluation with PT/OT therapy Review of systems: Constitutional: reports of fatigue, no fever, or chills Cardiovascular: No reports of chest pain or palpitations Respiratory: No reports of shortness of breath or cough GI: No reports of nausea, no reports of vomiting, reports loose bowel movements that are improving : No reports of dysuria or retention Neurovascular: reports of generalized weakness All medications have been reviewed PHYSICAL EXAMINATION: GENERAL: The patient is alert and oriented x2 baseline, Well developed, elderly appearing, ill-appearing, thin built HEENT: Pupils are round and equally reacting to light. EOMI. no scleral icterus. No conjunctival pallor. Normocephalic, atraumatic. No pharyngeal erythema. No thyromegaly. CARDIOVASCULAR: S1 and S2 muffled PULMONARY: diminished breath sounds bilaterally with no wheezing or rhonchi noted. some bronchial congested noted with a cough ABDOMEN: soft. Nontender on exam. Thin. Mildly-distended, normoactive bowel sounds. No palpable organomegaly. MUSCULOSKELETAL: No joint swelling or deformity. EXTREMITIES: No cyanosis, clubbing, or pedal edema. NEUROLOGICAL: Gross neurological examination did not reveal any focal deficits. Diffuse weakness SKIN: No rashes. Pale. Assessment: Change in mental status, acute on chronic hepatic encephalopathy with hyperammonia, improved and at baseline Sepsis with gram-negative and gram-positive bacilli bacteremia, present on admission, repeat cultures negative thus far Troponin elevation up to 0.040, likely type II myocardial infarction per cardiology Diarrhea, positive for C. difficile, maintained on oral vancomycin Atrial fibrillation history, paroxysmal currently rate controlled, history of AICD placement History of coronary artery disease with previous CABG Ischemic cardiomyopathy with an EF of 25 to 30% Chronic obstructive pulmonary disease, not in exacerbation History of hypertension History of liver disease with alcohol abuse history Chronic hypoxic respiratory failure secondary to COPD and uses 2 to 3 L occasionally History of anxiety Continued ongoing nicotine dependence GI prophylaxis DVT prophylaxis on Eliquis Full code Plan: Recommend to continue with current medications and management with infectious disease following. Patient is currently continued on IV Flagyl along with oral Vanco per ID recommendations. Cultures thus far are negative Insurance requested peer to peer and was denied reporting he is functional and can return home. Patient reports he will go home with his brother and can arrange for home care outpatient. Patient with some increased abdominal distention although somewhat soft we will order an ultrasound of the abdomen for possible paracentesis. Consult IR if ascites is noted. Will hold Eliquis in the event a paracentesis is performed. Encouraged oral intake Sodium level 125 and patient was maintained on hydration with Bumex and Aldactone being held. Will discontinue IV fluids and follow-up on repeat labs. Clinically patient does not appear volume overloaded and will resume Bumex and Aldactone on discharge. The impression and plan of care has been dictated by Shira Irizarry, nurse practitioner as directed. Dr. Rojas MD I have performed a history and examination and MDM of this patient, discussed the same with the dictator, and agree with the dictator's assessment and plan as written ,documented as a scribe. Based on total visit time, I have performed more than 50% of the visit. Any additional findings or plans will be noted. Objective - Vital Signs Vital signs: Vital Signs Temp 98.2 F 01/09/25 07:45 Pulse 64 01/09/25 07:45 Resp 17 01/09/25 07:45 BP 90/50 01/09/25 07:45 Pulse Ox 91 L 01/09/25 07:45 FiO2 Intake & Output 01/08/25 01/09/25 01/09/25 18:59 06:59 18:59 Intake Total 483 120 Balance 483 120 Weight 74.5 kg Intake: Oral 200 120 Blood Product 283 Rc Pheresis 2 As3 Unit 283 [id number] Other: # Voids 1 2 # Bowel Movements 1 - Labs CBC & Chem 7: 01/09/25 03:38 01/09/25 03:38 Labs: Abnormal Lab Results - Last 24 Hours (Table) 0301/09/25 01/09/25 Range/Units 09:31 03:38 03:38 WBC 4.29 L (4.50-10.00) X 10*3/uL RBC 2.90 L (4.40-5.60) X 10*6/uL Hgb 7.6 L (13.0-17.0) g/dL Hct 25.2 L (39.6-50.0) % MCH 26.2 L (27.0-32.0) pg MCHC 30.2 L (32.0-37.0) g/dL RDW 28.0 H (11.5-14.5) % Lymphocytes # 0.72 L (0.90-5.00) X 10*3/uL Sodium 125 L (135-145) mmol/L Carbon Dioxide 21.5 L (21.6-31.8) mmol/L BUN/Creatinine Ratio 21.88 H (12.00-20.00) Ratio Calcium 8.1 L (8.7-10.3) mg/dL Crossmatch See Detail
[2025-01-10 10:48] LABS: BUN/Creat Ratio 24.25 Ratio (12.00-20.00); Blood Urea Nitrogen 19.4 mg/dL (9.0-27.0); Calcium 7.8 mg/dL (8.7-10.3); Carbon Dioxide 22.4 mmol/L (21.6-31.8); Chloride 102 mmol/L (96-109); Glucose 79 mg/dL (70-110); Potassium 4.4 mmol/L (3.5-5.5); Sodium 129 mmol/L (135-145)
--- NOTE | 2025-01-10 17:17 | P.PN ---
Subjective Progress Note Date: 01/10/25 Principal diagnosis: Reason for follow-up is bacteremia Patient is a 59-year-old male with a past medical history significant for atrial fibrillation coronary artery disease hypertension COPD liver disease presenting to the hospital for evaluation of mental status changes, patient will complete show positive UA mild blood cultures, UA positive with gram-negative bacilli and as well as gram-positive bacilli. On today's evaluation that is 01/10/2025,the patient denies any fever or any chills, patient is breathing comfortably on room air, the patient denies chest pain shortness of breath and no significant cough, patient denies abdominal pain, no nausea vomiting or diarrhea. Patient did have a creatinine 0.8 no CBC was done today repeat culture has been negative Objective - Vital Signs Vital signs: Vital Signs Temp 98.4 F 01/10/25 07:30 Pulse 61 01/10/25 07:30 Resp 17 01/10/25 07:30 BP 109/48 01/10/25 07:30 Pulse Ox 98 01/10/25 07:30 FiO2 Intake & Output 01/09/25 01/10/25 01/10/25 18:59 06:59 18:59 Intake Total 520 720 Output Total 600 500 Balance -80 720 -500 Weight 75.4 kg Intake: Oral 520 720 Output: Urine 600 500 Other: # Voids 4 - Exam GENERAL DESCRIPTION: Middle-age male lying in bed in no distress RESPIRATORY SYSTEM: Unlabored breathing , decreased breath sounds at bases HEART: S1 S2 regular rate and rhythm , ABDOMEN: Soft , mild distention but no significant tenderness EXTREMITIES: No edema feet - Labs CBC & Chem 7: 01/09/25 03:38 01/10/25 06:58 Labs: Abnormal Lab Results - Last 24 Hours (Table) 01/10/25 Range/Units 06:58 Sodium 129 L (135-145) mmol/L BUN/Creatinine Ratio 24.25 H (12.00-20.00) Ratio Calcium 7.8 L (8.7-10.3) mg/dL Assessment and Plan (1) UTI (urinary tract infection) Current Visit: Yes Status: Acute Code(s): N39.0 - URINARY TRACT INFECTION, SITE NOT SPECIFIED SNOMED Code(s): 07185419 (2) Bacteremia Current Visit: Yes Status: Acute Code(s): R78.81 - BACTEREMIA SNOMED Code(s): 4424724 (3) C. difficile colitis Current Visit: Yes Status: Acute Code(s): A04.72 - ENTEROCOLITIS D/T CLOSTRIDIUM DIFFICILE, NOT SPCF RECUR SNOMED Code(s): 760747293 Plan: 1patient presented hospital with significant mental status changes and this patient noted to have a positive UA questionable urinary source has no other obvious focus of infection abdomen was soft medical examination chest x-ray was clear no evidence of any cellulitis or joint swelling 2patient did have a positive blood culture which has been finalized as Clost ridium perfringens usually of a GI source however the patient did have a CT abdominal pelvis did not mention any abscess or colitis 3patient stool for C. difficile also came back positive, blood culture has been negative 4-patient is afebrile white count normal blood culture to be negative, 5patient to continue with Flagyl and vancomycin to finish his course of therapy, and monitor clinical course closely Dictation was produced using [employer] dictation software. please excuse any grammatical, word or spelling errors. Time with Patient: Less than 30
--- NOTE | 2025-01-11 06:01 | P.PN ---
Subjective Progress Note Date: 01/10/25 This is a 59-year-old man who resides at [facility] who came in with encephalopathy with change in mental status with acute on chronic hepatic encephalopathy. Ammonia levels noted to be elevated and patient maintained on lactulose. Per nursing documentation patient has been refusing lactulose and reports been having bowel movements. Will repeat ammonia level. Cultures pending and patient is maintained on antibiotics with infectious disease following. Patient is afebrile and denies any chest pain or shortness of breath. Patient continues to ask daily if he can return home. White count is normal at 5.89 and hemoglobin is stable at 8.4, sodium slightly worsened at 127 with a potassium of 5.0 and creatinine is 1.0. Patient is having increased amounts of loose stools and C. difficile has been ordered and pending. Will also hold Bumex and Aldactone as sodium is trending down and patient with poor oral intake and continued diarrhea. 01/04/2025 Patient is seen in follow-up today more awake and alert today reporting multiple episodes of loose watery stools. Patient was positive for C. difficile and being started on vancomycin to 50 every 6 hours along with IV Flagyl and clindamycin and ceftriaxone will be discontinued as this was discussed with infectious disease. Patient's cultures including urine was negative and recent blood culture is negative. Ammonia has improved as well and will hold lactulose for now as patient is having multiple episodes of loose stools. Blood pressures are on the softer side and will increase midodrine to 10 mg 3 times daily. Continue gentle hydration for now and will follow-up on repeat labs. Replace electrolytes per protocol. Patient will be returning to [facility] where he resides. 01/08/2025 Patient is seen in follow-up with infectious disease following maintained on Flagyl along with oral vancomycin showing some clinical improvements. Hemoglobin was noted to be 6.9 and will transfuse 1 unit of PRBC and follow-up on repeat labs. Diuretics continue to be on hold as patient was maintained on gentle hydration and will discontinue. Sodium is 125 today and recommend follow-up repeat labs and replace electrolytes per protocol. Patient has not been on lactulose and will need to resume once C. difficile has resolved. Patient has chronic hepatic encephalopathy. Plan is for discharge to [facility] currently pending insurance authorization. 01/09/2025 Patient is seen in follow-up today was awaiting insurance authorization to re turn to [facility] for continued physical therapy although the insurance is denying recommending a peer to peer which is scheduled for today. Patient is afebrile with no reports of chest pain or shortness of breath. Patient reports diarrhea is improved although continues to be loose. Patient is maintained on vancomycin oral along with Flagyl. Patient reports he resides with his brother and will be going home if insurance denies him going to rehab. Will arrange for home care outpatient. Patient's abdomen appears somewhat distended and will obtain an ultrasound for possible paracentesis. Diuretics and Aldactone have been on hold and sodium remains 125. Recommend reevaluation with PT/OT therapy 01/10/2025 Patient is seen in follow-up this morning scheduled to undergo paracentesis and per nursing staff will be on 01/11/2025 per IR. Hold Eliquis for the paracentesis and will resume post. Sodium is improved at 129 and will continue current regimen. Per case management, patient does reside at [facility] and will be returning there on discharge. Patient to continue on oral vancomycin and Flagyl per ID recommendations and will continue a short course to complete the regimen on discharge. Patient is afebrile with no reports of chest pain or shortness of breath. Encouraged increase activity as tolerated and small frequent meals. Review of systems: Constitutional: reports of fatigue, no fever, or chills Cardiovascular: No reports of chest pain or palpitations Respiratory: No reports of shortness of breath or cough GI: No reports of nausea, no reports of vomiting, reports loose bowel movements that are improving : No reports of dysuria or retention Neurovascular: reports of generalized weakness All medications have been reviewed PHYSICAL EXAMINATION: GENERAL: The patient is alert and oriented x2 baseline, Well developed, elderly appearing, ill-appearing, thin built HEENT: Pupils are round and equally reacting to light. EOMI. no scleral icterus. No conjunctival pallor. Normocephalic, atraumatic. No pharyngeal erythema. No thyromegaly. CARDIOVASCULAR: S1 and S2 muffled PULMONARY: diminished breath sounds bilaterally with no wheezing or rhonchi noted. some bronchial congested noted with a cough ABDOMEN: soft. Nontender on exam. Thin. Mildly-distended, normoactive bowel sounds. No palpable organomegaly. MUSCULOSKELETAL: No joint swelling or deformity. EXTREMITIES: No cyanosis, clubbing, or pedal edema. NEUROLOGICAL: Gross neurological examination did not reveal any focal deficits. Diffuse weakness SKIN: No rashes. Pale. Assessment: Change in mental status, secondary to acute on chronic hepatic encephalopathy with hyperammonia, improved and at baseline Sepsis with gram-negative and gram-positive bacilli bacteremia, present on admi ssion, repeat cultures negative thus far Troponin elevation up to 0.040, likely type II myocardial infarction per cardiology Abdominal distention, secondary to ascites noted on imaging, IR consulted for possible paracentesis Diarrhea, positive for C. difficile, maintained on oral vancomycin Atrial fibrillation history, paroxysmal currently rate controlled, history of AICD placement History of coronary artery disease with previous CABG Ischemic cardiomyopathy with an EF of 25 to 30% Chronic obstructive pulmonary disease, not in exacerbation History of hypertension History of liver disease with alcohol abuse history Chronic hypoxic respiratory failure secondary to COPD and uses 2 to 3 L occasi onally History of anxiety Continued ongoing nicotine dependence GI prophylaxis DVT prophylaxis on Eliquis Full code Plan: Recommend to continue with current medications and management with infectious disease following. Patient is currently continued on IV Flagyl along with oral Vanco per ID recommendations. Cultures remain negative Insurance requested peer to peer and was denied reporting he is functional and can return home. Patient reports he will go home with his brother and can arrange for home care outpatient. Apparently per case management, patient was living at [facility] and will be returning there on discharge. Patient with some increased abdominal distention although somewhat soft with ultrasound suggestive of moderate ascites. Consult IR for ascites was placed and patient is scheduled to undergo paracentesis on 01/11/2025. Will hold Eliquis i and await a paracentesis to be performed. Encouraged oral intake Sodium level improved at 129 and patient was maintained on hydration with Bumex and Aldactone being held. IV fluids discontinued and follow-up on repeat labs. Clinically patient does not appear volume overloaded other than abdominal distention and will resume Bumex and Aldactone on discharge. Await paracentesis and may need albumin as patient's blood pressures are soft and maintained on midodrine. Will await paracentesis report Possible discharge planning in the next 24 to 48 hours The impression and plan of care has been dictated by Shira Irizarry, nurse practitioner as directed. Dr. Rojas MD I have performed a history and examination and MDM of this patient, discussed the same with the dictator, and agree with the dictator's assessment and plan as written ,documented as a scribe. Based on total visit time, I have performed more than 50% of the visit. Any additional findings or plans will be noted. Objective - Vital Signs Vital signs: Vital Signs Temp 98.4 F 01/10/25 07:30 Pulse 61 01/10/25 07:30 Resp 17 01/10/25 07:30 BP 109/48 01/10/25 07:30 Pulse Ox 98 01/10/25 07:30 FiO2 Intake & Output 01/09/25 01/10/25 01/10/25 18:59 06:59 18:59 Intake Total 520 720 Output Total 600 500 Balance -80 720 -500 Weight 75.4 kg Intake: Oral 520 720 Output: Urine 600 500 Other: # Voids 4 - Labs CBC & Chem 7: 01/09/25 03:38 01/10/25 06:58 Labs: Abnormal Lab Results - Last 24 Hours (Table) 01/10/25 Range/Units 06:58 Sodium 129 L (135-145) mmol/L BUN/Creatinine Ratio 24.25 H (12.00-20.00) Ratio Calcium 7.8 L (8.7-10.3) mg/dL
[2025-01-11 08:23] VITALS: RESP 16
[2025-01-11 08:37] LABS: Blood Urea Nitrogen 16.8 mg/dL (9.0-27.0); Calcium 8.1 mg/dL (8.7-10.3); Carbon Dioxide 20.5 mmol/L (21.6-31.8); Chloride 107 mmol/L (96-109); Glucose 74 mg/dL (70-110); Magnesium 1.7 mg/dL (1.5-2.4); Potassium 4.5 mmol/L (3.5-5.5); Sodium 135 mmol/L (135-145)
[2025-01-11 08:41] LABS: HCT 24.7 % (39.6-50.0); HGB 7.5 g/dL (13.0-17.0); MCH 26.6 pg (27.0-32.0); MCHC 30.4 g/dL (32.0-37.0); MCV 87.6 FL (80.0-97.0); Mean Platelet Volume 10.2 FL (9.5-12.2); NRBC Per 100 WBC 0 X 10*3/uL (0.00-0.01); Platelet Count 160 X 10*3/uL (140-440); RBC 2.82 X 10*6/uL (4.40-5.60); RDW 28.7 % (11.5-14.5); WBC 3.88 X 10*3/uL (4.50-10.00)
[2025-01-11 08:42] LABS: Basophils # (A) 0.05 X 10*3/uL (0.00-0.10); Basophils % (A) 1.3 %; Eosinophils # (A) 0.16 X 10*3/uL (0.04-0.35); Eosinophils % (A) 4.1 %; Lymphocytes % (A) 23.2 %; Monocytes # (A) 0.45 X 10*3/uL (0.20-1.00); Monocytes % (A) 11.6 %; Neutrophils # (A) 2.31 X 10*3/uL (1.80-7.70); Neutrophils % (A) 59.5 %
--- NOTE | 2025-01-11 11:47 | US ---
EXAMINATION TYPE: US paracentesis abd w/image DATE OF EXAM: 01/11/2025 10:58 AM COMPARISON: None. Previous Paracentesis CLINICAL INDICATION: Male, 59 years old with history of Ascites; , ascites TECHNIQUE/FINDINGS: The procedure was discussed with the patient. The risks, complications, benefits, and alternatives we re discussed and any questions were answered. Informed consent was obtained. The patient was placed s upine on the ultrasound table and prepped and draped in the usual sterile fashion. All elements of maximal barrier technique were utilized. Under ultrasound guidance, access into the right lower quadrant was obtained, via the paracentesis catheter system and direct ultrasound guidanc e. Approximately 5 liters of straw-colored fluid was removed. The patient was stable throughout the proc edure and remained stable upon discharge from Department of Radiology. IMPRESSION: Successful paracentesis under ultrasound guidance. [facility] Mary Olsen, , 01/11/2025 11:45 AM
--- NOTE | 2025-01-11 13:58 | P.PN ---
Subjective Progress Note Date: 01/11/25 Principal diagnosis: Reason for follow-up is bacteremia Patient is a 59-year-old male with a past medical history significant for atrial fibrillation coronary artery disease hypertension COPD liver disease presenting to the hospital for evaluation of mental status changes, patient will complete show positive UA mild blood cultures, UA positive with gram-negative bacilli and as well as gram-positive bacilli. On today's evaluation that is 01/11/2025,the patient remains to be afebrile, patient is on room air not requiring supplemental oxygen and denies any shortness of breath no chest pain or cough.Patient denies having any nausea or vomiting, no abdominal pain and no diarrhea. Patient white count is 3.88, creatinine 0.7 Objective - Vital Signs Vital signs: Vital Signs Temp 98.0 F 01/11/25 07:30 Pulse 68 01/11/25 11:15 Resp 16 01/11/25 11:15 BP 94/53 01/11/25 11:15 Pulse Ox 96 01/11/25 11:15 FiO2 Intake & Output 01/10/25 01/11/25 01/11/25 18:59 06:59 18:59 Intake Total 250 240 Output Total 1250 Balance -1000 240 Weight 76.9 kg Intake: Oral 250 240 Output: Urine 1250 Other: Voiding Method Urinal # Voids 3 1 - Exam GENERAL DESCRIPTION: Middle-age male lying in bed in no distress RESPIRATORY SYSTEM: Unlabored breathing , decreased breath sounds at bases HEART: S1 S2 regular rate and rhythm , ABDOMEN: Soft , mild distention but no significant tenderness EXTREMITIES: No edema feet - Labs CBC & Chem 7: 01/11/25 05:49 01/11/25 05:49 Labs: Abnormal Lab Results - Last 24 Hours (Table) 01/11/25 01/11/25 Range/Units 05:49 05:49 WBC 3.88 L (4.50-10.00) X 10*3/uL RBC 2.82 L (4.40-5.60) X 10*6/uL Hgb 7.5 L (13.0-17.0) g/dL Hct 24.7 L (39.6-50.0) % MCH 26.6 L (27.0-32.0) pg MCHC 30.4 L (32.0-37.0) g/dL RDW 28.7 H (11.5-14.5) % Carbon Dioxide 20.5 L (21.6-31.8) mmol/L BUN/Creatinine Ratio 24.00 H (12.00-20.00) Ratio Calcium 8.1 L (8.7-10.3) mg/dL Assessment and Plan (1) UTI (urinary tract infection) Current Visit: Yes Status: Acute Code(s): N39.0 - URINARY TRACT INFECTION, SITE NOT SPECIFIED SNOMED Code(s): 04389213 (2) Bacteremia Current Visit: Yes Status: Acute Code(s): R78.81 - BACTEREMIA SNOMED Code(s): 8766455 (3) C. difficile colitis Current Visit: Yes Status: Acute Code(s): A04.72 - ENTEROCOLITIS D/T CLOSTRIDIUM DIFFICILE, NOT SPCF RECUR SNOMED Code(s): 814187451 Plan: 1patient presented to the hospital with significant mental status changes with initial concern for possible UTI, subsequently positive blood culture which has been finalized as Clostridium perfringens usually of a GI source however the patient did have a CT abdominal pelvis did not mention any abscess or colitis 2patient stool for C. difficile also came back positive, blood culture repeat has been negative 3-patient is afebrile white count normal blood culture to be negative, patient has shown clinical improvement,Currently waiting for placement will continue with the Flagyl and vancomycin and monitor clinical course closely Dictation was produced using [employer] dictation software. please excuse any gramm atical, word or spelling errors. Time with Patient: Less than 30
[2025-01-11] MEDS: ALBUMIN HUMAN 25% 50 ML in EMPTY BAG 1 BAG IVPB SCH (14:06)
--- NOTE | 2025-01-11 14:07 | P.DS ---
Providers Date of admission: 12/31/24 19:39 Expected date of discharge: 01/11/25 Attending physician: Cathie Savage MD Consults: 12/31/24 21:38 Consult Physician Routine Consulting Provider: Vic Moreira Consult Reason/Comments: sepsis Do you want consulting provider notified?: Yes Primary care physician: Kathryn Marin, DO Hospital Course: Final diagnosis Assessment: Change in mental status, secondary to acute on chronic hepatic encephalopathy with hyperammonia, improved and at baseline Sepsis with gram-negative and gram-positive bacilli bacteremia, present on admission, repeat cultures negative thus far Troponin elevation up to 0.040, likely type II myocardial infarction per cardiology Abdominal distention, secondary to ascites noted on imaging, status post IR guided paracentesis with 5 L removed today 01/11/2025, patient did receive albumin post Diarrhea, positive for C. difficile, maintained on oral vancomycin Atrial fibrillation history, paroxysmal currently rate controlled, history of AICD placement History of coronary artery disease with previous CABG Ischemic cardiomyopathy with an EF of 25 to 30% Chronic obstructive pulmonary disease, not in exacerbation History of hypertension History of liver disease with alcohol abuse history Chronic hypoxic respiratory failure secondary to COPD and uses 2 to 3 L occasionally History of anxiety Continued ongoing nicotine dependence GI prophylaxis DVT prophylaxis on Eliquis Full code Discharge disposition Patient is being discharged in a stable condition with guarded prognosis to [facility]. Patient will follow-up with Dr. Marin in the outpatient setting upon discharge. Patient is to continue with oral vancomycin and Flagyl for the next 10 days per ID recommendations. Total time taken is greater than 35 minutes. Hospital course This is a 59-year-old man who resides at [facility] who came in with encephalopathy with change in mental status with acute on chronic hepatic encephalopathy. Ammonia levels noted to be elevated and patient maintained on lactulose. Per nursing documentation patient has been refusing lactulose and reports been having bowel movements. Will repeat ammonia level. Cultures pending and patient is maintained on antibiotics with infectious disease following. Patient is afebrile and denies any chest pain or shortness of breath. Patient continues to ask daily if he can return home. White count is normal at 5.89 and hemoglobin is stable at 8.4, sodium slightly worsened at 127 with a potassium of 5.0 and creatinine is 1.0. Patient is having increased amounts of loose stools and C. difficile has been ordered and pending. Will also hold Bumex and Aldactone as sodium is trending down and patient with poor oral intake and continued diarrhea. 01/04/2025 Patient is seen in follow-up today more awake and alert today reporting multiple episodes of loose watery stools. Patient was positive for C. difficile and being started on vancomycin to 50 every 6 hours along with IV Flagyl and clindamycin and ceftriaxone will be discontinued as this was discussed with infectious disease. Patient's cultures including urine was negative and recent blood culture is negative. Ammonia has improved as well and will hold lactulose for now as patient is having multiple episodes of loose stools. Blood pressures are on the softer side and will increase midodrine to 10 mg 3 times daily. Continue gentle hydration for now and will follow-up on repeat labs. Replace electrolytes per protocol. Patient will be returning to [facility] where he resides. 01/08/2025 Patient is seen in follow-up with infectious disease following maintained on Flagyl along with oral vancomycin showing some clinical improvements. Hemoglobin was noted to be 6.9 and will transfuse 1 unit of PRBC and follow-up on repeat labs. Diuretics continue to be on hold as patient was maintained on gentle hydration and will discontinue. Sodium is 125 today and recommend follow-up repeat labs and replace electrolytes per protocol. Patient has not been on lactulose and will need to resume once C. difficile has resolved. Patient has chronic hepatic encephalopathy. Plan is for discharge to [facility] currently pending insurance authorization. 01/09/2025 Patient is seen in follow-up today was awaiting insurance authorization to return to [facility] for continued physical therapy although the insurance is denying recommending a peer to peer which is scheduled for today. Patient is afebrile with no reports of chest pain or shortness of breath. Patient reports diarrhea is improved although continues to be loose. Patient is maintained on vancomycin oral along with Flagyl. Patient reports he resides with his brother and will be going home if insurance denies him going to rehab. Will arrange for home care outpatient. Patient's abdomen appears somewhat distended and will obtain an ultrasound for possible paracentesis. Diuretics and Aldactone have been on hold and sodium remains 125. Recommend reevaluation with PT/OT therapy 01/10/2025 Patient is seen in follow-up this morning scheduled to undergo paracentesis and per nursing staff will be on 01/11/2025 per IR. Hold Eliquis for the paracentesis and will resume post. Sodium is improved at 129 and will continue current regimen. Per case management, patient does reside at [facility] and will be returning there on discharge. Patient to continue on oral vancomycin and Flagyl per ID recommendations and will continue a short course to complete the regimen on discharge. Patient is afebrile with no reports of chest pain or shortness of breath. Encouraged increase activity as tolerated and small frequent meals. 01/11/2025 Patient is seen in follow-up this morning status post paracentesis with approximately 5 L removed and is receiving albumin infusion. Patient sodium is improved at 134 and recommend to resume Bumex and Aldactone on discharge. Patient will also continue on vancomycin oral along with oral Flagyl per ID recommendations for the next 10 days to complete the course. Patient should resume lactulose at least twice daily to have 3 bowel movements daily with his chronic hepatic encephalopathy. Ammonia level is less than 9 currently. Patient has been cleared by consultations and will be going to [facility] today. Please refer to other consultation notes for further HPI. PHYSICAL EXAMINATION: GENERAL: The patient is alert and oriented x2 baseline, Well developed, elderly appearing, ill-appearing, thin built HEENT: Pupils are round and equally reacting to light. EOMI. no scleral icterus. No conjunctival pallor. Normocephalic, atraumatic. No pharyngeal erythema. No thyromegaly. CARDIOVASCULAR: S1 and S2 muffled PULMONARY: diminished breath sounds bilaterally with no wheezing or rhonchi noted. some bronchial congested noted with a cough ABDOMEN: soft. Nontender on exam. Thin. Less-distended, normoactive bowel sounds. No palpable organomegaly. MUSCULOSKELETAL: No joint swelling or deformity. EXTREMITIES: No cyanosis, clubbing, or pedal edema. NEUROLOGICAL: Gross neurological examination did not reveal any focal deficits. Diffuse weakness SKIN: No rashes. Pale. The impression and plan of care has been dictated by Shira Irizarry, nurse practitioner as directed. Dr. Rojas MD I have performed a history and examination and MDM of this patient, discussed the same with the dictator, and agree with the dictator's assessment and plan as written ,documented as a scribe. Based on total visit time, I have performed more than 50% of the visit. Any additional findings or plans will be noted. Patient Condition at Discharge: Stable Plan - Discharge Summary Discharge Rx Participant: Yes New Discharge Prescriptions: New Ipratropium-Albuterol Nebulize [Duoneb 0.5 mg-3 mg/3 ml Soln] 3 ml INHALATION RT-QID each metroNIDAZOLE [Flagyl] 500 mg PO TID 10 Days #30 tab Midodrine [ProAmatine] 10 mg PO TID-W/MEALS tab Acetaminophen Tab [Tylenol] 650 mg PO Q6HR PRN tab PRN Reason: Fever And/ Or Pain Vancomycin HCl 250 mg PO QID 10 Days #40 cap Ipratropium-Albuterol Nebulize [Duoneb 0.5 mg-3 mg/3 ml Soln] 3 ml INHALATION RT-Q2H PRN each PRN Reason: Shortness Of Breath Or Wheezing Continue Metoprolol Tartrate [Lopressor] 25 mg PO BID #60 tab Ergocalciferol [Vitamin D2 (1250 Mcg = 62269 Iu)] 1,250 mcg PO CELESTE Budesonide [Pulmicort] 0.5 mg INHALATION RT-BID Melatonin 5 mg PO HS Sodium Chloride [[place]] 1 spray EA NOSTRIL Q1H PRN PRN Reason: prophylaxis, pulmonary disease Spironolactone [Aldactone] 25 mg PO DAILY 30 Days #30 tab Sacubitril/Valsartan [Entresto 24 mg-26 mg Tablet] 0.5 tab PO BID Empagliflozin [Jardiance] 10 mg PO DAILY Miconazole Nitrate 2% Powder 1 applic TOPICAL BID Lactulose 20 gm PO BID Magnesium Oxide [Magox 400] 400 mg PO DAILY Atorvastatin [Lipitor] 40 mg PO HS Naloxone HCl [Narcan] 4 mg NASAL ONCE PRN PRN Reason: suspected overdose Apixaban [Eliquis] 5 mg PO BID@0700,1900 Ferrous Sulfate [Iron (65 MG Elemental)] 325 mg PO DAILY Omeprazole 20 mg PO DAILY HYDROcodone/APAP 5-325MG [[place] 5-325] 1 tab PO Q6H PRN #4 tab PRN Reason: Pain Discontinued Midodrine [ProAmatine] 5 mg PO TID@0700,1300,1900 Ipratropium-Albuterol Nebulize [Duoneb 0.5 mg-3 mg/3 ml Soln] 3 ml INHALATION RT-QID@05,11,17,23 Bumetanide [BUMEX] 1 mg PO DAILY 30 Days #30 tab Discharge Medication List Metoprolol Tartrate [Lopressor] 25 mg PO BID #60 tab 07/25/24 [Rx] Empagliflozin [Jardiance] 10 mg PO DAILY 09/30/24 [History] Ergocalciferol [Vitamin D2 (1250 Mcg = 64627 Iu)] 1,250 mcg PO CELESTE 10/06/24 [History] Atorvastatin [Lipitor] 40 mg PO HS 12/19/24 [History] Budesonide [Pulmicort] 0.5 mg INHALATION RT-BID 12/19/24 [History] Lactulose 20 gm PO BID 12/19/24 [History] Magnesium Oxide [Magox 400] 400 mg PO DAILY 12/19/24 [History] Melatonin 5 mg PO HS 12/19/24 [History] Miconazole Nitrate 2% Powder 1 applic TOPICAL BID 12/19/24 [History] Naloxone HCl [Narcan] 4 mg NASAL ONCE PRN 12/19/24 [History] Sodium Chloride [[place]] 1 spray EA NOSTRIL Q1H PRN 12/19/24 [History] Spironolactone [Aldactone] 25 mg PO DAILY 30 Days #30 tab 12/26/24 [Rx] Apixaban [Eliquis] 5 mg PO BID@0700,1900 12/31/24 [History] Ferrous Sulfate [Iron (65 MG Elemental)] 325 mg PO DAILY 12/31/24 [History] Omeprazole 20 mg PO DAILY 12/31/24 [History] Sacubitril/Valsartan [Entresto 24 mg-26 mg Tablet] 0.5 tab PO BID 12/31/24 [History] Acetaminophen Tab [Tylenol] 650 mg PO Q6HR PRN tab 01/05/25 [Rx] HYDROcodone/APAP 5-325MG [[place]lew 5-325] 1 tab PO Q6H PRN #4 tab 01/05/25 [Rx] Ipratropium-Albuterol Nebulize [Duoneb 0.5 mg-3 mg/3 ml Soln] 3 ml INHALATION RT-Q2H PRN each 01/05/25 [Rx] Ipratropium-Albuterol Nebulize [Duoneb 0.5 mg-3 mg/3 ml Soln] 3 ml INHALATION RT-QID each 01/05/25 [Rx] Midodrine [ProAmatine] 10 mg PO TID-W/MEALS tab 01/05/25 [Rx] Vancomycin HCl 250 mg PO QID 10 Days #40 cap 01/05/25 [Rx] metroNIDAZOLE [Flagyl] 500 mg PO TID 10 Days #30 tab 01/05/25 [Rx] Follow up Appointment(s)/Referral(s): Kathryn Marin DO [Primary Care Provider] - 1-2 days Activity/Diet/Wound Care/Special Instructions: Patient is returning to [facility] Activity as tolerated Continue with oral vancomycin 250 mg 4 times daily for the next 10 days along with oral Flagyl 500 mg 3 times daily for the next 10 days Repeat labs to monitor CBC, CMP, magnesium, and ammonia level in 2 to 3 days Strongly recommend lactulose daily while completing vancomycin and then increase to 2-3 times daily so patient is having 3-4 bowel movements daily for chronic hyperammonemia Okay to resume Bumex and Aldactone on 01/12/2025 Discharge Disposition: TRANSFER TO SNF/ECF
[2025-01-11 14:45] VITALS: BP 88/51; PULSE 60; TEMP 98.1
--- NOTE | 2025-01-11 18:22 | CDI ---
Date: 01/11/2025 04:16:00 PM From: Lucina [email or web address] Email: [email or web address] Admit Date: 12/31/2024 07:39:00 PM Patient Name: Jaron Price Visit Number: [id number] Discharge Date: N/A ATTENTION: The Clinical Documentation Specialists (CDI) and [facility] Coding Staff appreciate your assistance in clarifying documentation. Please respond to the clarification below the line at the bottom and electronically sign. The CDI & [facility] Coding staff will review the response and follow-up if needed. Please note: Queries are made part of the Legal Health Record. If you have any questions, please contact the author of this message via ITS. Dr. Margret Xie, Conflicting documentation has been found in the medical record. As attending physician, please provide clarification. Internal Medicine Progress Note (01/10/2025): o Chronic hypoxic respiratory failure o uses 2 to 3 liters occasionally History/Risk Factors: 59-year-old male presented to [facility] for evaluation due to mental status changes. PMH: Chronic obstructive pulmonary disease, tobacco use, coronary artery disease, hypertensive heart disease, ischemic cardiomyopathy Clinical Indicators: Chest X-Ray (12/31/2024): Cardiomegaly, pulmonary vascular congestion and bilateral pleural effusions Supplemental Oxygen Requirement this Admission: o 12/31/2024 - 01/03/2025: Room Air o 01/04/2025 (@ 13:10): SpO2 99% on Room Air o 01/04/2025 (@ 19:52) 100% on 2L NC o 01/05/2025 (@ 00:00): 94% on Room Air o 01/05/2025 - Discharge: Room Air Treatment: Supplemental Oxygen: 2 Liters via Nasal Cannula (Brief Duration) Telemetry Monitoring DuoNeb Treatments QID Please clarify which diagnosis is most appropriate: [ X] Chronic respiratory failure has been ruled out (periodic supplemental oxygen use at home, non-dependent) [ ] Chronic respiratory failure with [id number] supplemental oxygen dependence is a valid diagnosis as evidenced by: [ ] Other (please specify) [ ] Unable to determine MTDD
--- NOTE | 2025-01-11 18:50 | CDI ---
Date: 01/11/2025 04:16:00 PM From: Lucina [email or web address] Email: [email or web address] Admit Date: 12/31/2024 07:39:00 PM Patient Name: Jaron Price Visit Number: [id number] Discharge Date: N/A ATTENTION: The Clinical Documentation Specialists (CDI) and [facility] Coding Staff appreciate your assistance in clarifying documentation. Please respond to the clarification below the line at the bottom and electronically sign. The CDI & [facility] Coding staff will review the response and follow-up if needed. Please note: Queries are made part of the Legal Health Record. If you have any questions, please contact the author of this message via ITS. Dr. Mathieu Lyons, Type II VT is documented in your Consultation Note on 01/01/2025 - which may lack sufficient clinical evidence/support in the medical record. Additional clarification is requested. History/Risk Factors: 59-year-old male presented to [facility] for evaluation due to mental status changes. PMH: Coronary artery disease with previous CABG, hypertensive heart disease, ischemic cardiomyopathy, chronic obstructive pulmonary disease, tobacco dependence, VT ablation, ICD implantation, liver disease with history of alcohol abuse, atrial fibrillation Clinical indicators: Vital Signs in ED: T 98.1 F (Oral) HR 60 RR 18 BP 107/60 SpO2 95% on Room Air Troponin Trend (12/31/2024): 0.040 --> 0.042 --> 0.040 ECG (12/31/2024): Atrial fibrillation. ST deviation and moderate T-wave abnormality, consider lateral ischemia Cardiology Consult Note (01/01/2025): o Minimally elevated troponin, likely type II VT secondary to oxygen supply/demand mismatch, no evidence of acute coronary syndrome o EKG reveals sinus mechanism with T wave inversions in lateral leads o Chest x-ray cardiomegaly, pulmonary vascular congestion and bilateral pleural effusions o Most recent echocardiogram obtained in September 2024 revealed ejection fraction 25 to 30%, eccentric moderate mitral regurgitation, and mild TR o An acute coronary event has been ruled out Other Clinical Indicators: Hemoglobin Trend: (12/31/2024) 9.6 --> (01/05/2025) 7.7 --> (01/08/2025) 6.9 --> (01/11/2025) 7.5 Treatment: Cardiology Consultation Troponin Trend Telemetry Monitoring After work up and study, please which diagnosis is most appropriate? Abnormal troponin related to chronic cardiomyopathy No evidence for a type I myocardial infarction Reference: [employer] Fourth [place] Definition of Myocardial Infraction Type II VT is indicated when an acute myocardial injury in the setting of an abnormal troponin with a rise and fall and clinical indicators suggestive of an imbalance between myocardial oxygen supply demand with acute myocardial ischemia unrelated to coronary thrombosis as evidenced by one of the following: Symptoms of myocardial ischemia New ischemic ECG changes Development of pathological Q waves Imaging evidence of new loss of viable myocardium or new regional wall motion abnormality in a pattern consistent with an ischemic etiology MTDD
== END 2025-01-11 17:42 | DRG 872 ==
LOC: EC 17:03 → 3SCARD 19:39 → 4SSUR 01-02 13:01
PROVIDERS: ADMIT Internal Medicine; ATTEND Internal Medicine
PROC: 30233N1 Transfusion of Nonautologous Red Blood Cells into Peripheral Vein, Percutaneous Approach (ICD-10-PCS; principal; 2025-01-08)
PROC: 0W9G3ZZ Drainage of Peritoneal Cavity, Percutaneous Approach (ICD-10-PCS; 2025-01-11)
DX: A41.50 Gram-negative sepsis, unspecified (principal); A04.72 Enterocolitis due to Clostridium difficile, not specified as recurrent; K76.82 Hepatic encephalopathy; R18.8 Other ascites; I11.0 Hypertensive heart disease with heart failure; I25.5 Ischemic cardiomyopathy; J44.9 Chronic obstructive pulmonary disease, unspecified; F10.11 Alcohol abuse, in remission; I34.0 Nonrheumatic mitral (valve) insufficiency; J96.11 Chronic respiratory failure with hypoxia; N39.0 Urinary tract infection, site not specified; I48.0 Paroxysmal atrial fibrillation; I50.9 Heart failure, unspecified; R63.30 Feeding difficulties, unspecified; K70.9 Alcoholic liver disease, unspecified; F41.9 Anxiety disorder, unspecified; F17.200 Nicotine dependence, unspecified, uncomplicated; I25.10 Atherosclerotic heart disease of native coronary artery without angina pectoris; I25.2 Old myocardial infarction; Z99.81 Dependence on supplemental oxygen; Z79.01 Long term (current) use of anticoagulants; Z79.84 Long term (current) use of oral hypoglycemic drugs; Z79.899 Other long term (current) drug therapy; Z95.1 Presence of aortocoronary bypass graft; Z95.810 Presence of automatic (implantable) cardiac defibrillator; Z20.822 Contact with and (suspected) exposure to COVID-19; Z71.3 Dietary counseling and surveillance; Z79.51 Long term (current) use of inhaled steroids
CPT/HCPCS: 36415; 49083; 70450; 71045; 71046; 74177; 76705; 80048; 80053; 81001; 82140; 82803; 83735; 83880; 84484; 85025; 85610; 85730; 86850; 86900; 86901; 86920; 87040; 87086; 87493; 87636; 93005; 94640; 94760; 96365; 96366; 99285

== ENCOUNTER 2025-01-24 23:45 | Inpatient (IN) | payer MEDICARE, OTHER ==
[2025-01-25 01:08] LABS: ALT 36 U/L (4-49); AST 64 U/L (17-59); African American GFR (CKD) >90 (>60 ml/min/1.73 sqM); Albumin 2.4 g/dL (3.5-5.0); Alkaline Phosphatase 193 U/L (38-126); Anion Gap 3 mmol/L; Blood Urea Nitrogen 27 mg/dL (9-20); Calcium 8.6 mg/dL (8.4-10.2); Carbon Dioxide 25 mmol/L (22-30); Chloride 96 mmol/L (98-107); Glucose 89 mg/dL (74-99); Non-African American GFR(CKD) >90 (>60 ml/min/1.73 sqM); Potassium 4.8 mmol/L (3.5-5.1); Sodium 124 mmol/L (137-145); Total Bilirubin 0.7 mg/dL (0.2-1.3); Total Protein 5.2 g/dL (6.3-8.2)
[2025-01-25] MEDS: HYDROcodone/APAP 10-325MG 1 EACH TAB PO ONE (01:17)
[2025-01-25 01:23] LABS: Basophils # (A) 0.01 10*3/uL (0.00-0.10); Basophils % (A) 0.3 %; Eosinophils # (A) 0.09 10*3/uL (0.04-0.35); Eosinophils % (A) 2.6 %; Lymphocytes # (A) 0.62 10*3/uL (0.90-5.00); Lymphocytes % (A) 18.2 %; MCH 27.3 pg (27.0-32.0); MCHC 31.2 g/dL (32.0-37.0); MCV 87.6 fL (80.0-97.0); Mean Platelet Volume 9.9 fL (9.5-12.2); Monocytes # (A) 0.46 10*3/uL (0.20-1.00); Monocytes % (A) 13.5 %; Neutrophils # (A) 2.23 10*3/uL (1.80-7.70); Neutrophils % (A) 65.4 %; Platelet Count 140 10*3/uL (140-440); RBC 1.94 10*6/uL (4.40-5.60); WBC 3.41 10*3/uL (4.50-10.00)
[2025-01-25 01:42] LABS: HGB 5.3 g/dL (13.0-17.0)
[2025-01-25] MEDS ORDERED: NALOXONE 0.4 MG/ML 1 ML VIAL IV PRN (02:37)
[2025-01-25 02:41] LABS: INR 1.3 (<1.2); Prothrombin Time 13.8 sec (10.0-12.5)
--- NOTE | 2025-01-25 04:07 | ED ---
General Adult HPI - General Chief complaint: Recheck/Abnormal Lab/Rx Stated complaint: abnormal labs Time Seen by Provider: 01/24/25 23:54 Source: patient, EMS Mode of arrival: EMS Limitations: no limitations - History of Present Illness Initial comments: This patient is a 59-year-old man who presents as a transfer from the medical [place] [facility]. He has history of alcoholic cirrhosis. Patient states that he quit drinking months ago. Patient reportedly had routine laboratory testing today day and then the home was called about having low hemoglobin. When I interviewed the patient, he is denying complaints. The patient denies having bloody stools. He states that he does take an iron supplement and therefore always has dark stool. -: hour(s) Severity scale (1-10): 0 Consistency: constant Improves with: none Worsens with: none Associated Symptoms: denies other symptoms Treatments Prior to Arrival: none - Related Data Home Medications Medication Instructions Recorded Confirmed Empagliflozin [Jardiance] 10 mg PO DAILY 09/30/24 01/25/25 Ergocalciferol [Vitamin D2 (1250 1,250 mcg PO CELESTE 10/06/24 01/25/25 Mcg = 64653 Iu)] Atorvastatin [Lipitor] 40 mg PO HS 12/19/24 01/25/25 Budesonide [Pulmicort] 0.5 mg INHALATION RT-BID 12/19/24 01/25/25 Lactulose 20 gm PO BID 12/19/24 01/25/25 Magnesium Oxide [Magox 400] 400 mg PO DAILY 12/19/24 01/25/25 Miconazole Nitrate 2% Powder 1 applic TOPICAL BID 12/19/24 01/25/25 Naloxone HCl [Narcan] 4 mg NASAL ONCE PRN 12/19/24 01/25/25 Sodium Chloride [[place]] 1 spray EA NOSTRIL Q1H PRN 12/19/24 01/25/25 Apixaban [Eliquis] 5 mg PO Q12H 12/31/24 01/25/25 Ferrous Sulfate [Iron (65 MG 325 mg PO HS 12/31/24 01/25/25 Elemental)] Omeprazole 20 mg PO DAILY 12/31/24 01/25/25 Sacubitril/Valsartan [Entresto 24 0.5 tab PO Q12H 03/16/25 04/10/25 mg-26 mg Tablet] Acetaminophen [Tylenol 8 Hour] 650 mg PO Q6H PRN 01/25/25 01/25/25 Bumetanide [BUMEX] 1 mg PO DAILY 01/25/25 01/25/25 Calcium Carbonate [Tums] 1,000 mg PO Q4H PRN 01/25/25 01/25/25 Ipratropium-Albuterol Nebulize 3 ml INHALATION RT-Q4H PRN 01/25/25 01/25/25 [Duoneb 0.5 mg-3 mg/3 ml Soln] Melatonin 3 mg PO HS 01/25/25 01/25/25 Metoclopramide HCl [Reglan] 5 mg PO QID 01/25/25 01/25/25 Metoprolol Tartrate [Lopressor] 12.5 mg PO BID 01/25/25 01/25/25 Midodrine HCl [ProAmatine] 20 mg PO TID-W/MEALS 01/25/25 01/25/25 Spironolactone [Aldactone] 12.5 mg PO DAILY 01/25/25 01/25/25 Previous Rx's Medication Instructions Recorded HYDROcodone/APAP 5-325MG [[place] 1 tab PO Q6H PRN #4 tab 02/02/25 5-325] Allergies Allergy/AdvReac Type Severity Reaction Status Date / Time chloroxine [From Capitrol] Allergy Rash/Hives Verified 01/25/25 08:47 Review of Systems ROS Statement: Those systems with pertinent positive or pertinent negative responses have been documented in the HPI. ROS Other: All systems not noted in ROS Statement are negative. Constitutional: Denies: fever, chills Respiratory: Denies: cough, dyspnea Cardiovascular: Denies: chest pain, palpitations Gastrointestinal: Denies: abdominal pain, vomiting, diarrhea Genitourinary: Denies: dysuria, hematuria Musculoskeletal: Denies: back pain Skin: Denies: rash Neurological: Denies: headache, weakness Hematological/Lymphatic: Denies: easy bleeding Past Medical History Past Medical History: Atrial Fibrillation, Coronary Artery Disease (CAD), Chest Pain / Angina, Heart Failure, COPD, Hypertension, Liver Disease, Myocardial Infarction ([place]), Respiratory Disorder, Syncope Additional Past Medical History / Comment(s): Home oxygen use@2-3L PRN COPD - says has oxygen at home but doesn't wear it, [place]- patient reports having 3-4 [place]'s, + CABG -triple bypass scar, + AICD/PCCM "I have a machine inside that sends all the info to my heart doctor" , Abdominal Hernia surgery x2, paracentesis as needed- last times was at [facility] about 4 months ago per patient Last Myocardial Infarction Date:: 1992 History of Any Multi-Drug Resistant Organisms: None Reported Past Surgical History: AICD, Cholecystectomy, Coronary Bypass/CABG, Heart Catheterization With Stent, Hernia Repair, Pacemaker Additional Past Surgical History / Comment(s): CABG, AICD/Pacemaker placed about 10 years ago, Hernia repair abdominal x2 Past Anesthesia/Blood Transfusion Reactions: No Reported Reaction Date of Last Stent Placement:: 1992 Type of Cardiac Device: Permanent Pacemaker, AICD Device Placement Date:: 1992 Past Psychological History: Anxiety Past Alcohol Use History: None Reported, Occasional - Past Family History Mother Family Medical History: Cancer Father Family Medical History: Cancer General Exam Limitations: no limitations General appearance: alert, in no apparent distress Head exam: Present: atraumatic, normocephalic Eye exam: Present: scleral icterus. Absent: conjunctival injection ENT exam: Present: mucous membranes dry Neck exam: Present: normal inspection, full ROM Respiratory exam: Present: normal lung sounds bilaterally. Absent: respiratory distress, wheezes, rales, rhonchi, stridor, accessory muscle use Cardiovascular Exam: Present: regular rate, normal rhythm, normal heart sounds. Absent: systolic murmur, diastolic murmur, rubs, gallop GI/Abdominal exam: Present: soft, hernia (Reduced umbilical hernia), other (There does appear to be small amount of ascites). Absent: distended, tenderness, guarding, rebound, rigid, mass, pulsatile mass Rectal exam: Present: normal inspection, black stool. Absent: fecal impaction, hemorrhoids, mass, tenderness Extremities exam: Present: normal capillary refill, pedal edema. Absent: calf tenderness Back exam: Present: normal inspection Neurological exam: Present: alert Skin exam: Present: warm, dry, intact, normal color. Absent: rash Course Vital Signs 01/24/25 01/25/25 01/25/25 23:51 00:56 01:19 Temperature 97.8 F Pulse Rate 80 70 70 Pulse Rate [ Pulse Oximetery ] Respiratory 20 18 18 Rate Blood Pressure 106/50 104/50 101/48 Blood Pressure [Right Arm Sitting] O2 Sat by Pulse 100 96 95 Oximetry 01/25/25 01/25/25 01/25/25 02:30 03:39 04:00 Temperature 97.6 F Pulse Rate 86 74 Pulse Rate [ 76 Pulse Oximetery ] Respiratory 18 18 16 Rate Blood Pressure 100/50 114/53 Blood Pressure 105/65 [Right Arm Sitting] O2 Sat by Pulse 100 96 97 Oximetry 01/25/25 01/25/25 01/25/25 06:00 06:33 06:43 Temperature 97.7 F 97.8 F Pulse Rate 71 66 62 Pulse Rate [ Pulse Oximetery ] Respiratory 18 17 18 Rate Blood Pressure 92/62 111/55 98/60 Blood Pressure [Right Arm Sitting] O2 Sat by Pulse 98 97 98 Oximetry 01/25/25 01/25/25 01/25/25 07:03 07:52 08:42 Temperature 97.6 F 98.0 F Pulse Rate 71 72 71 Pulse Rate [ Pulse Oximetery ] Respiratory 16 18 18 Rate Blood Pressure 89/68 102/57 107/62 Blood Pressure [Right Arm Sitting] O2 Sat by Pulse 100 100 Oximetry 01/25/25 01/25/25 01/25/25 08:49 09:58 12:32 Temperature Pulse Rate 78 67 69 Pulse Rate [ Pulse Oximetery ] Respiratory 18 18 Rate Blood Pressure 101/46 112/50 Blood Pressure [Right Arm Sitting] O2 Sat by Pulse 98 97 99 Oximetry 01/25/25 01/25/25 01/25/25 13:10 13:20 13:40 Temperature 97.6 F 97.6 F 97.5 F L Pulse Rate 77 79 73 Pulse Rate [ Pulse Oximetery ] Respiratory 18 18 18 Rate Blood Pressure 90/51 106/49 106/59 Blood Pressure [Right Arm Sitting] O2 Sat by Pulse Oximetry 01/25/25 01/25/25 01/25/25 14:00 15:20 16:00 Temperature 97.8 F Pulse Rate 80 73 70 Pulse Rate [ Pulse Oximetery ] Respiratory 16 18 16 Rate Blood Pressure 101/43 93/49 95/48 Blood Pressure [Right Arm Sitting] O2 Sat by Pulse 98 98 99 Oximetry 01/25/25 01/25/25 01/25/25 17:17 19:00 19:36 Temperature Pulse Rate 71 76 70 Pulse Rate [ Pulse Oximetery ] Respiratory 18 18 18 Rate Blood Pressure 107/51 107/36 Blood Pressure [Right Arm Sitting] O2 Sat by Pulse 97 98 Oximetry 01/25/25 01/25/25 01/25/25 19:43 20:16 21:08 Temperature 96.9 F L Pulse Rate 65 71 70 Pulse Rate [ Pulse Oximetery ] Respiratory 18 18 16 Rate Blood Pressure 130/60 104/57 Blood Pressure [Right Arm Sitting] O2 Sat by Pulse 96 97 Oximetry Procedures - [place] Protocol (Time Out) Nurse: Ava Babin Medical Decision Making - Medical Decision Making Was pt. sent in by a medical professional or institution (, PA, DIPLOMA MEDICAL ASSISTANT, urgent care, hospital, or group home...) When possible be specific @ -[Sent from long-term care facility to have further treatment of anemia/GI bleed Did you speak to anyone other than the patient for history (EMS, parent, family, police, friend...)? What history was obtained from this source @ -[No] Did you review nursing and triage notes (agree or disagree)? Why? @ -[I reviewed and agree with nursing and triage notes] Were old charts reviewed (outside hosp., previous admission, EMS record, old EKG, old radiological studies, urgent care reports/EKG's, group home records)? Report findings @ -Yes, old charts were reviewed] Differential Diagnosis (chest pain, altered mental status, abdominal pain women, abdominal pain men, vaginal bleeding, weakness, fever, dyspnea, syncope, headache, dizziness, GI bleed, back pain, seizure, CVA, palpatations, mental health, musculoskeletal)? @ -[Differential GI Bleed: Esophageal varices, aortoenteric fistula, Patty-Claros, gastritis, peptic ulcer disease, diverticulosis, inflammatory bowel disease, hemorrhoids, fissure, colitis, malignancy, Meckel's diverticulum, this is not meant to be an all- inclusive list. EKG interpreted by me (3pts min.). @ -[As above] X-rays interpreted by me (1pt min.). @ -[None done] CT interpreted by me (1pt min.). @ -[None done] U/S interpreted by me (1pt. min.). @ -[None done] What testing was considered but not performed or refused? (CT, X-rays, U/S, labs)? Why? @ -[None] What meds were considered but not given or refused? Why? @ -[None] Did you discuss the management of the patient with other professionals (professionals i.e. , PA, DIPLOMA MEDICAL ASSISTANT, lab, RT, psych nurse, social media marketing specialist, licensed embalmer supervisor, teacher, textile technical officer, case repairer)? Give summary @ -[No] Was smoking cessation discussed for >3mins.? @ -[No] Was critical care preformed (if so, how long)? @ -[Yes, 35 minutes Were there social determinants of health that impacted care today? How? (Homelessness, low income, unemployed, alcoholism, drug addiction, transportati on, low edu. Level, literacy, decrease access to med. care, detention, rehab)? @ -[No] Was there de-escalation of care discussed even if they declined (Discuss DNR or withdrawal of care, Hospice)? DNR status @ -[No] What co-morbidities impacted this encounter? (DM, HTN, Smoking, COPD, CAD, Cancer, CVA, ARF, Chemo, Hep., AIDS, mental health diagnosis, sleep apnea, morbid obesity)? @ -[Chronic liver disease Was patient admitted / discharged? Hospital course, mention meds given and route, prescriptions, significant lab abnormalities, going to OR and other pertinent info. @ -[Patient is admitted to have further evaluation and treatment related to gastrointestinal bleeding and anemia. Patient also receiving transfusion Undiagnosed new problem with uncertain prognosis? @ -[No] Drug Therapy requiring intensive monitoring for toxicity (Heparin, Nitro, Insulin, Cardizem)? @ -[Blood transfusion Were any procedures done? @ -[No] Diagnosis/symptom? @ -[Acute GI bleeding Acute anemia Hyponatremia Chronic liver disease Acute, or Chronic, or Acute on Chronic? @ -[default] Uncomplicated (without systemic symptoms) or Complicated (systemic symptoms)? @ -[default] Side effects of treatment? @ -[No] Exacerbation, Progression, or Severe Exacerbation? @ -[No] Poses a threat to life or bodily function? How? (Chest pain, [place], [place], pneumonia, PE, COPD, DKA, ARF, appy, cholecystitis, CVA, Diverticulitis, Homicidal, Suicidal, threat to staff... and all critical care pts) @ -[There is risk of further exsanguination All treatments are based on ideal body weight as in ED triage - Lab Data Result diagrams: 02/01/25 06:27 02/02/25 00:35 Lab Results 01/25/25 01/25/25 01/25/25 Range/Units 00:05 00:05 00:05 WBC (4.50-10.00) 10*3/uL RBC (4.40-5.60) 10*6/uL Hgb (13.0-17.0) g/dL Hct (39.6-50.0) % MCV (80.0-97.0) fL MCH (27.0-32.0) pg MCHC (32.0-37.0) g/dL RDW (11.5-14.5) % Plt Count (140-440) 10*3/uL MPV (9.5-12.2) fL Immature Gran % (Auto) % Neutrophils % % Lymphocytes % % Monocytes % % Eosinophils % % Basophils % % Immature Gran # (0.00-0.04) 10*3/uL Neutrophils # (1.80-7.70) 10*3/uL Lymphocytes # (0.90-5.00) 10*3/uL Monocytes # (0.20-1.00) 10*3/uL Eosinophils # (0.04-0.35) 10*3/uL Basophils # (0.00-0.10) 10*3/uL PT (10.0-12.5) sec INR (<1.2) APTT (22.0-30.0) sec Sodium 124 L (137-145) mmol/L Potassium 4.8 (3.5-5.1) mmol/L Chloride 96 L (98-107) mmol/L Carbon Dioxide 25 (22-30) mmol/L Anion Gap 3 mmol/L BUN 27 H (9-20) mg/dL Creatinine 0.87 (0.66-1.25) mg/dL Est GFR (CKD-EPI)AfAm >90 (>60 ml/min/1.73 sqM) Est GFR (CKD-EPI)NonAf >90 (>60 ml/min/1.73 sqM) Glucose 89 (74-99) mg/dL Calcium 8.6 (8.4-10.2) mg/dL Iron 17 L (65-175) UG/DL TIBC 311 (228-460) UG/DL % Saturation 5.47 L (15.00-50.00) Transferrin 222.0 (204.0-354.0) mg/dL Ferritin 95.2 (22.0-322.0) ng/mL Total Bilirubin 0.7 (0.2-1.3) mg/dL AST 64 H (17-59) U/L ALT 36 (4-49) U/L Alkaline Phosphatase 193 H (38-126) U/L Ammonia <9 (<30) umol/L Total Protein 5.2 L (6.3-8.2) g/dL Albumin 2.4 L (3.5-5.0) g/dL Vitamin B12 621.0 (200.0-944.0) pg/mL Folate (4.40-31.00) ng/mL Blood Type Blood Type Recheck Bld Type Recheck Status Antibody Screen Crossmatch Spec Expiration Date 01/25/25 01/25/25 01/25/25 Range/Units 00:05 00:50 00:50 WBC 3.41 L (4.50-10.00) 10*3/uL RBC 1.94 L (4.40-5.60) 10*6/uL Hgb 5.3 L* (13.0-17.0) g/dL Hct 17.0 L* (39.6-50.0) % MCV 87.6 (80.0-97.0) fL MCH 27.3 (27.0-32.0) pg MCHC 31.2 L (32.0-37.0) g/dL RDW 27.0 H (11.5-14.5) % Plt Count 140 (140-440) 10*3/uL MPV 9.9 (9.5-12.2) fL Immature Gran % (Auto) 0 % Neutrophils % 65.4 % Lymphocytes % 18.2 % Monocytes % 13.5 % Eosinophils % 2.6 % Basophils % 0.3 % Immature Gran # 0.00 (0.00-0.04) 10*3/uL Neutrophils # 2.23 (1.80-7.70) 10*3/uL Lymphocytes # 0.62 L (0.90-5.00) 10*3/uL Monocytes # 0.46 (0.20-1.00) 10*3/uL Eosinophils # 0.09 (0.04-0.35) 10*3/uL Basophils # 0.01 (0.00-0.10) 10*3/uL PT 13.8 H (10.0-12.5) sec INR 1.3 H (<1.2) APTT 28.0 (22.0-30.0) sec Sodium (137-145) mmol/L Potassium (3.5-5.1) mmol/L Chloride (98-107) mmol/L Carbon Dioxide (22-30) mmol/L Anion Gap mmol/L BUN (9-20) mg/dL Creatinine (0.66-1.25) mg/dL Est GFR (CKD-EPI)AfAm (>60 ml/min/1.73 sqM) Est GFR (CKD-EPI)NonAf (>60 ml/min/1.73 sqM) Glucose (74-99) mg/dL Calcium (8.4-10.2) mg/dL Iron (65-175) UG/DL TIBC (228-460) UG/DL % Saturation (15.00-50.00) Transferrin (204.0-354.0) mg/dL Ferritin (22.0-322.0) ng/mL Total Bilirubin (0.2-1.3) mg/dL AST (17-59) U/L ALT (4-49) U/L Alkaline Phosphatase (38-126) U/L Ammonia (<30) umol/L Total Protein (6.3-8.2) g/dL Albumin (3.5-5.0) g/dL Vitamin B12 (200.0-944.0) pg/mL Folate 9.70 (4.40-31.00) ng/mL Blood Type Blood Type Recheck Bld Type Recheck Status Antibody Screen Crossmatch Spec Expiration Date 01/25/25 Range/Units 00:50 WBC (4.50-10.00) 10*3/uL RBC (4.40-5.60) 10*6/uL Hgb (13.0-17.0) g/dL Hct (39.6-50.0) % MCV (80.0-97.0) fL MCH (27.0-32.0) pg MCHC (32.0-37.0) g/dL RDW (11.5-14.5) % Plt Count (140-440) 10*3/uL MPV (9.5-12.2) fL Immature Gran % (Auto) % Neutrophils % % Lymphocytes % % Monocytes % % Eosinophils % % Basophils % % Immature Gran # (0.00-0.04) 10*3/uL Neutrophils # (1.80-7.70) 10*3/uL Lymphocytes # (0.90-5.00) 10*3/uL Monocytes # (0.20-1.00) 10*3/uL Eosinophils # (0.04-0.35) 10*3/uL Basophils # (0.00-0.10) 10*3/uL PT (10.0-12.5) sec INR (<1.2) APTT (22.0-30.0) sec Sodium (137-145) mmol/L Potassium (3.5-5.1) mmol/L Chloride (98-107) mmol/L Carbon Dioxide (22-30) mmol/L Anion Gap mmol/L BUN (9-20) mg/dL Creatinine (0.66-1.25) mg/dL Est GFR (CKD-EPI)AfAm (>60 ml/min/1.73 sqM) Est GFR (CKD-EPI)NonAf (>60 ml/min/1.73 sqM) Glucose (74-99) mg/dL Calcium (8.4-10.2) mg/dL Iron (65-175) UG/DL TIBC (228-460) UG/DL % Saturation (15.00-50.00) Transferrin (204.0-354.0) mg/dL Ferritin (22.0-322.0) ng/mL Total Bilirubin (0.2-1.3) mg/dL AST (17-59) U/L ALT (4-49) U/L Alkaline Phosphatase (38-126) U/L Ammonia (<30) umol/L Total Protein (6.3-8.2) g/dL Albumin (3.5-5.0) g/dL Vitamin B12 (200.0-944.0) pg/mL Folate (4.40-31.00) ng/mL Blood Type B Positive Blood Type Recheck B Pos Bld Type Recheck Status No Antibody Screen NEGATIVE Crossmatch See Detail Spec Expiration Date 01/28/20252349 Disposition Clinical Impression: GI bleeding, Anemia Disposition: ADMITTED IP TO THIS HOSP Condition: Fair
[2025-01-25] MEDS: HYDROcodone/APAP 7.5-325MG 1 EACH TAB PO ONE (06:47)
[2025-01-25] MEDS: SODIUM CHLORIDE 0.9% 1,000 ML IV SCH (06:48)
[2025-01-25] MEDS: FAMOTIDINE 20 MG TAB PO SCH (08:14)
[2025-01-25 11:51] LABS: HCT 21.5 % (39.6-50.0); MCH 27.3 pg (27.0-32.0); MCHC 30.2 g/dL (32.0-37.0); MCV 90.3 fL (80.0-97.0); Mean Platelet Volume 9.7 fL (9.5-12.2); Platelet Count 154 10*3/uL (140-440); RBC 2.38 10*6/uL (4.40-5.60); WBC 4.24 10*3/uL (4.50-10.00)
[2025-01-25 12:01] LABS: RDW 25.7 % (11.5-14.5)
[2025-01-25 12:02] LABS: HGB 6.5 g/dL (13.0-17.0)
[2025-01-25] MEDS: PANTOPRAZOLE 40 MG/10 ML VIAL IVP SCH (12:27)
--- NOTE | 2025-01-25 12:35 | US ---
EXAMINATION TYPE: US abdomen limited DATE OF EXAM: 01/25/2025 COMPARISON: Multiple, most recent 01/11/2025 CLINICAL INDICATION: Male, 59 years old with history of Ascites, evaluate for paracentesis; TECHNIQUE: Grayscale imaging of the abdomen for ascites. FINDINGS: Ascites seen all four quadrants. IMPRESSION: 1. [facility] Mary Olsen, , 01/25/2025 12:33 PM
[2025-01-25] MEDS ORDERED: SODIUM CHLORIDE 0.65% NASAL SPRAY 44 ML BTL INTRANASAL PRN (13:16)
--- NOTE | 2025-01-25 13:28 | P.HPIM ---
History of Present Illness 59-year-old male was transferred from radiology office because of severe anemia patient denies any blood in the stools, does have dark stools but secondary to iron supplementation. Patient does have history of alcoholic cirrhosis. Jesus jin has congestive heart failure ischemic cardiomyopathy EF of around 20 to 25% patient has bilateral pedal edema which is extensive. Patient is hyponatremic as well. Patient denied any shortness of breath. Patient receiving 2 units of PRBC transfusion. Patient is still mild elevated but other liver function tests are essentially within normal meds except for albumin slightly lower. REVIEW OF SYSTEMS: All other systems are negative except those mentioned in the HPI PHYSICAL EXAMINATION: GENERAL: The patient is alert and oriented x3, not in any acute distress. Well developed, well nourished. HEENT: Pupils are round and equally reacting to light. EOMI. No scleral icterus. No conjunctival pallor. Normocephalic, atraumatic. No pharyngeal erythema. No thyromegaly. CARDIOVASCULAR: S1 and S2 present. No murmurs, rubs, or gallops. PULMONARY: Chest is clear to auscultation, no wheezing or crackles. ABDOMEN: Soft, nontender, nondistended, normoactive bowel sounds. No palpable o rganomegaly. MUSCULOSKELETAL: No joint swelling or deformity. EXTREMITIES: No cyanosis, clubbing, does have bilateral pedal edema which is extensive NEUROLOGICAL: Gross neurological examination did not reveal any focal deficits. SKIN: No rashes. Assessment and plan -Severe anemia without any evidence of acute bleed gastroenterology evaluate the patient the patient is undergoing a colonoscopy and likely endoscopy patient may have varices that are slowly bleeding from his alcoholic cirrhosis - Alcoholic cirrhosis: Patient will be resumed on Bumex because of the volume overload I will change Bumex to IV for today. Patient is on lactulose which we will continue patient does not have symptoms of hepatic encephalopathy at this time. - Heart failure chronic systolic dysfunction EF of around 25 to 50% may be in mild acute exacerbation chest x-ray was obtained patient is not requiring any ox ygen patient does have extensive pedal edema IV Lasix as mentioned above patient will be resumed on Entresto Aldactone. Patient has a pacemaker and AICD - Coronary artery disease history of CABG in the past and multiple stents in the past Atrial fibrillation paroxysmal on anticoagulation with Eliquis which will be held temporarily until her endoscopy procedures - COPD without any acute exacerbation DVT prophylaxis: Patient will start on Eliquis tomorrow after endoscopy Past Medical History Past Medical History: Atrial Fibrillation, Coronary Artery Disease (CAD), Chest Pain / Angina, Heart Failure, COPD, Hypertension, Liver Disease, Myocardial Infarction (IA), Respiratory Disorder, Syncope Additional Past Medical History / Comment(s): Home oxygen use@2-3L PRN COPD - says has oxygen at home but doesn't wear it, IA- patient reports having 3-4 IA's, + CABG -triple bypass scar, + AICD/PCCM "I have a machine inside that sends all the info to my heart doctor" , Abdominal Hernia surgery x2, paracentesis as needed- last times was at [facility] about 4 months ago per patient Last Myocardial Infarction Date:: 1992 History of Any Multi-Drug Resistant Organisms: None Reported Past Surgical History: AICD, Cholecystectomy, Coronary Bypass/CABG, Heart Catheterization With Stent, Hernia Repair, Pacemaker Additional Past Surgical History / Comment(s): CABG, AICD/Pacemaker placed about 10 years ago, Hernia repair abdominal x2 Past Anesthesia/Blood Transfusion Reactions: No Reported Reaction Date of Last Stent Placement:: 1992 Type of Cardiac Device: Permanent Pacemaker, AICD Device Placement Date:: 1992 Past Psychological History: Anxiety Past Alcohol Use History: None Reported, Occasional - Past Family History Mother Family Medical History: Cancer Father Family Medical History: Cancer Medications and Allergies Home Medications Medication Instructions Recorded Confirmed Type Empagliflozin [Jardiance] 10 mg PO DAILY 09/30/24 01/25/25 History Ergocalciferol [Vitamin D2 (1250 1,250 mcg PO CELESTE 10/06/24 01/25/25 History Mcg = 14168 Iu)] Atorvastatin [Lipitor] 40 mg PO HS 12/19/24 01/25/25 History Budesonide [Pulmicort] 0.5 mg INHALATION RT-BID 12/19/24 01/25/25 History Lactulose 20 gm PO BID 12/19/24 01/25/25 History Magnesium Oxide [Magox 400] 400 mg PO DAILY 12/19/24 01/25/25 History Miconazole Nitrate 2% Powder 1 applic TOPICAL BID 12/19/24 01/25/25 History Naloxone HCl [Narcan] 4 mg NASAL ONCE PRN 12/19/24 01/25/25 History Sodium Chloride [[place]] 1 spray EA NOSTRIL Q1H PRN 12/19/24 01/25/25 History Apixaban [Eliquis] 5 mg PO Q12H 12/31/24 01/25/25 History Ferrous Sulfate [Iron (65 MG 325 mg PO HS 12/31/24 01/25/25 History Elemental)] Omeprazole 20 mg PO DAILY 12/31/24 01/25/25 History Sacubitril/Valsartan [Entresto 24 0.5 tab PO Q12H 12/31/24 01/25/25 History mg-26 mg Tablet] HYDROcodone/APAP 5-325MG [[place] 1 tab PO Q6H PRN #4 tab 01/05/25 01/25/25 Rx 5-325] Acetaminophen [Tylenol 8 Hour] 650 mg PO Q6H PRN 01/25/25 01/25/25 History Bumetanide [Bumex] 1 mg PO DAILY 01/25/25 01/25/25 History Calcium Carbonate [Tums] 1,000 mg PO Q4H PRN 01/25/25 01/25/25 History Ipratropium-Albuterol Nebulize 3 ml INHALATION RT-Q4H PRN 01/25/25 01/25/25 History [Duoneb 0.5 mg-3 mg/3 ml Soln] Melatonin 3 mg PO HS 01/25/25 01/25/25 History Metoclopramide HCl [Reglan] 5 mg PO QID 01/25/25 01/25/25 History Metoprolol Tartrate [Lopressor] 12.5 mg PO BID 01/25/25 01/25/25 History Midodrine HCl [ProAmatine] 20 mg PO TID-W/MEALS 01/25/25 01/25/25 History Spironolactone [Aldactone] 12.5 mg PO DAILY 01/25/25 01/25/25 History Allergies Allergy/AdvReac Type Severity Reaction Status Date / Time chloroxine [From Capitrol] Allergy Rash/Hives Verified 01/25/25 08:47 Physical Exam Vitals: Vital Signs Temp Pulse Resp BP Pulse Ox 01/25/25 13:20 97.6 F 79 18 106/49 01/25/25 13:10 97.6 F 77 18 90/51 01/25/25 12:32 69 18 112/50 99 01/25/25 09:58 67 18 101/46 97 01/25/25 08:49 78 98 01/25/25 08:42 98.0 F 71 18 107/62 01/25/25 07:52 97.6 F 72 18 102/57 100 01/25/25 07:03 71 16 89/68 100 01/25/25 06:43 97.8 F 62 18 98/60 98 01/25/25 06:33 97.7 F 66 17 111/55 97 01/25/25 06:00 71 18 92/62 98 01/25/25 04:00 74 16 114/53 97 01/25/25 02:30 86 18 100/50 100 01/25/25 01:19 70 18 101/48 95 01/25/25 00:56 70 18 104/50 96 01/24/25 23:51 97.8 F 80 20 106/50 100 Intake and Output 01/24/25 01/25/25 01/25/25 22:59 06:59 14:59 Intake Total 0 282 Balance 0 282 Intake: Blood Product 0 282 Rc As-1 Unit 0 [id number] Rc Pheresis As-3 Unit 0 282 [id number] Other: Weight 79.379 kg Results CBC & Chem 7: 01/25/25 11:35 01/25/25 00:05 Labs: Abnormal Lab Results - Last 24 Hours (Table) 01/25/25 01/25/25 01/25/25 Range/Units 00:05 00:50 00:50 WBC 3.41 L (4.50-10.00) 10*3/uL RBC 1.94 L (4.40-5.60) 10*6/uL Hgb 5.3 L* (13.0-17.0) g/dL Hct 17.0 L* (39.6-50.0) % MCHC 31.2 L (32.0-37.0) g/dL RDW 27.0 H (11.5-14.5) % Lymphocytes # 0.62 L (0.90-5.00) 10*3/uL PT 13.8 H (10.0-12.5) sec INR 1.3 H (<1.2) Sodium 124 L (137-145) mmol/L Chloride 96 L (98-107) mmol/L BUN 27 H (9-20) mg/dL AST 64 H (17-59) U/L Alkaline Phosphatase 193 H (38-126) U/L Total Protein 5.2 L (6.3-8.2) g/dL Albumin 2.4 L (3.5-5.0) g/dL Crossmatch 01/25/25 01/25/25 Range/Units 00:50 11:35 WBC 4.24 L (4.50-10.00) 10*3/uL RBC 2.38 L (4.40-5.60) 10*6/uL Hgb 6.5 L* (13.0-17.0) g/dL Hct 21.5 L (39.6-50.0) % MCHC 30.2 L (32.0-37.0) g/dL RDW 25.7 H (11.5-14.5) % Lymphocytes # (0.90-5.00) 10*3/uL PT (10.0-12.5) sec INR (<1.2) Sodium (137-145) mmol/L Chloride (98-107) mmol/L BUN (9-20) mg/dL AST (17-59) U/L Alkaline Phosphatase (38-126) U/L Total Protein (6.3-8.2) g/dL Albumin (3.5-5.0) g/dL Crossmatch See Detail
[2025-01-25] MEDS ORDERED: APIXABAN 5 MG TAB PO SCH (13:30)
[2025-01-25] MEDS: traMADol 50 MG TAB PO PRN (13:43)
[2025-01-25] MEDS: BUMETANIDE 0.25 MG/ML 4 ML VIAL IVP SCH (13:46)
[2025-01-25] MEDS: LACTULOSE 20 GM/30 ML CUP PO SCH (13:51)
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
[2025-01-25] MEDS: METOPROLOL TARTRATE 12.5 MG TAB PO SCH (16:41)
[2025-01-25] MEDS: SACUBITRIL/VALSARTAN 24 MG-26 MG TABLET PO SCH (16:42)
[2025-01-25] MEDS: MIDODRINE 5 MG TAB PO SCH (17:19)
--- NOTE | 2025-01-25 17:37 | P.CONS ---
History of Present Illness - Reason for Consult Consult date: 01/25/25 Anemia, cirrhosis Requesting physician: Leonardo Murphy - Chief Complaint Outpatient abnormal labs - History of Present Illness This a pleasant 59-year-old male with a history of alcohol liver cirrhosis diagnosed in July 2024, congestive heart failure, ischemic cardiomyopathy with an EF around 20 to 25%, atrial fibrillation on Eliquis, coronary artery disease status post IL and CABG, COPD, and hypertension. Patient has been at [facility] had outpatient lab work done was noted to be anemic and was sent in for further evaluation. Patient denies any black stool or blood in his stool, no abdominal pain nausea or vomiting. Patient does state that he does have dark stool secondary to his iron. He takes Eliquis for atrial fibrillation last taken yesterday according to his records. Patient does not follow-up with any brake engineer for his liver disease, he is unsure who is managing it. He has had previous paracentesis he states mostly when he is here in the hospital. Last 1 was done on December 25, 2024 with 4.6 L removed. Patient is on spironolactone 12.5 mg daily Bumex 1 mg daily also takes lactulose 20 g twice daily for his liver disease. Patient's hemoglobin on admission was 5.3 hematocrit 17 and platelet count 140,000. INR was 1.3 patient was also noted to have elevated BUN and positive occult stool. BNP was 482. He was given 2 units of blood with a repeat hemoglobin today of 6.5. Patient states he was a heavy drinker for most of his life likely since teenage years up until July 2024. He states he used to drink 15-20 beers daily plus whiskey and coke. He denies any history of GI bleed. Denies any use of NSAIDs. Unknown last endoscopic evaluation. Review of Systems REVIEW OF SYSTEMS: CARDIOPULMONARY: No chest pain or shortness of breath. Lower extremity swelling. Gastrointestinal: No abdominal pain. Abdominal distention with ascites. No nausea or vomiting. No hematemesis, coffee-ground emesis. No rectal bleeding, or melena. Patient reports dark stool on iron. GENITOURINARY: No dysuria or hematuria. MUSCULOSKELETAL: Reports normal range of motion., Joint pain. SKIN: No rashes. No jaundice. ENDOCRINE: No chills, fevers. No excessive weight gain or loss. No polydipsia or polyuria. PSYCHIATRIC: Unremarkable. NEUROLOGY: No change in mental status. Denies dizziness, headache. ENT: Vision unremarkable. CONSTITUTIONAL: No recent weight loss. No fever, chills, night sweats. Past Medical History Past Medical History: Atrial Fibrillation, Coronary Artery Disease (CAD), Chest Pain / Angina, Heart Failure, COPD, Hypertension, Liver Disease, Myocardial Infarction (IL), Respiratory Disorder, Syncope Additional Past Medical History / Comment(s): Home oxygen use@2-3L PRN COPD - says has oxygen at home but doesn't wear it, IL- patient reports having 3-4 IL's, + CABG -triple bypass scar, + AICD/PCCM "I have a machine inside that sends all the info to my heart doctor" , Abdominal Hernia surgery x2, paracentesis as needed- last times was at [facility] about 4 months ago per patient Last Myocardial Infarction Date:: 1992 History of Any Multi-Drug Resistant Organisms: None Reported Past Surgical History: AICD, Cholecystectomy, Coronary Bypass/CABG, Heart Catheterization With Stent, Hernia Repair, Pacemaker Additional Past Surgical History / Comment(s): CABG, AICD/Pacemaker placed about 10 years ago, Hernia repair abdominal x2 Past Anesthesia/Blood Transfusion Reactions: No Reported Reaction Date of Last Stent Placement:: 1992 Type of Cardiac Device: Permanent Pacemaker, AICD Device Placement Date:: 1992 Past Psychological History: Anxiety Past Alcohol Use History: None Reported, Occasional - Past Family History Mother Family Medical History: Cancer Father Family Medical History: Cancer Medications and Allergies Home Medications Medication Instructions Recorded Confirmed Type Empagliflozin [Jardiance] 10 mg PO DAILY 09/30/24 01/25/25 History Ergocalciferol [Vitamin D2 (1250 1,250 mcg PO CELESTE 10/06/24 01/25/25 History Mcg = 92388 Iu)] Atorvastatin [Lipitor] 40 mg PO HS 12/19/24 01/25/25 History Budesonide [Pulmicort] 0.5 mg INHALATION RT-BID 12/19/24 01/25/25 History Lactulose 20 gm PO BID 12/19/24 01/25/25 History Magnesium Oxide [Magox 400] 400 mg PO DAILY 12/19/24 01/25/25 History Miconazole Nitrate 2% Powder 1 applic TOPICAL BID 12/19/24 01/25/25 History Naloxone HCl [Narcan] 4 mg NASAL ONCE PRN 12/19/24 01/25/25 History Sodium Chloride [[place]] 1 spray EA NOSTRIL Q1H PRN 12/19/24 01/25/25 History Apixaban [Eliquis] 5 mg PO Q12H 12/31/24 01/25/25 History Ferrous Sulfate [Iron (65 MG 325 mg PO HS 12/31/24 01/25/25 History Elemental)] Omeprazole 20 mg PO DAILY 12/31/24 01/25/25 History Sacubitril/Valsartan [Entresto 24 0.5 tab PO Q12H 12/31/24 01/25/25 History mg-26 mg Tablet] HYDROcodone/APAP 5-325MG [[place] 1 tab PO Q6H PRN #4 tab 01/05/25 01/25/25 Rx 5-325] Acetaminophen [Tylenol 8 Hour] 650 mg PO Q6H PRN 01/25/25 01/25/25 History Bumetanide [Bumex] 1 mg PO DAILY 01/25/25 01/25/25 History Calcium Carbonate [Tums] 1,000 mg PO Q4H PRN 01/25/25 01/25/25 History Ipratropium-Albuterol Nebulize 3 ml INHALATION RT-Q4H PRN 01/25/25 01/25/25 History [Duoneb 0.5 mg-3 mg/3 ml Soln] Melatonin 3 mg PO HS 01/25/25 01/25/25 History Metoclopramide HCl [Reglan] 5 mg PO QID 01/25/25 01/25/25 History Metoprolol Tartrate [Lopressor] 12.5 mg PO BID 01/25/25 01/25/25 History Midodrine HCl [ProAmatine] 20 mg PO TID-W/MEALS 01/25/25 01/25/25 History Spironolactone [Aldactone] 12.5 mg PO DAILY 01/25/25 01/25/25 History Allergies Allergy/AdvReac Type Severity Reaction Status Date / Time chloroxine [From Capitrol] Allergy Rash/Hives Verified 01/25/25 08:47 Physical Exam Vitals: Vital Signs Temp Pulse Resp BP Pulse Ox 01/25/25 09:58 67 18 101/46 97 01/25/25 08:49 78 98 01/25/25 08:42 98.0 F 71 18 107/62 01/25/25 07:52 97.6 F 72 18 102/57 100 01/25/25 07:03 71 16 89/68 100 01/25/25 06:43 97.8 F 62 18 98/60 98 01/25/25 06:33 97.7 F 66 17 111/55 97 01/25/25 06:00 71 18 92/62 98 01/25/25 04:00 74 16 114/53 97 01/25/25 02:30 86 18 100/50 100 01/25/25 01:19 70 18 101/48 95 01/25/25 00:56 70 18 104/50 96 01/24/25 23:51 97.8 F 80 20 106/50 100 Intake and Output 01/24/25 01/25/25 01/25/25 22:59 06:59 14:59 Intake Total 0 282 Balance 0 282 Intake: Blood Product 0 282 Rc Pheresis As-3 Unit 0 282 [id number] Other: Weight 79.379 kg General appearance: The patient is alert, oriented, appears in no acute distress. HET: Head is normocephalic and atraumatic. Conjunctiva pink. Sclera anicteric. Neck: Supple without lymphadenopathy. Trachea midline. Heart: Regular. Lungs: Equal expansion, normal respiratory effort. Abdomen: Soft, nontender, abdominal distention with large amount of ascites, umbilical hernia. Skin: No rashes. No jaundice. Extremities: Normal skin color and turgor. Lower extremity edema. Neurological: No focal deficits. Alert and oriented x3. Results CBC & Chem 7: 01/25/25 11:35 01/25/25 00:05 Labs: Abnormal Lab Results - Last 24 Hours (Table) 01/25/25 01/25/25 01/25/25 Range/Units 00:05 00:50 00:50 WBC 3.41 L (4.50-10.00) 10*3/uL RBC 1.94 L (4.40-5.60) 10*6/uL Hgb 5.3 L* (13.0-17.0) g/dL Hct 17.0 L* (39.6-50.0) % MCHC 31.2 L (32.0-37.0) g/dL RDW 27.0 H (11.5-14.5) % Lymphocytes # 0.62 L (0.90-5.00) 10*3/uL PT 13.8 H (10.0-12.5) sec INR 1.3 H (<1.2) Sodium 124 L (137-145) mmol/L Chloride 96 L (98-107) mmol/L BUN 27 H (9-20) mg/dL AST 64 H (17-59) U/L Alkaline Phosphatase 193 H (38-126) U/L Total Protein 5.2 L (6.3-8.2) g/dL Albumin 2.4 L (3.5-5.0) g/dL Crossmatch 01/25/25 Range/Units 00:50 WBC (4.50-10.00) 10*3/uL RBC (4.40-5.60) 10*6/uL Hgb (13.0-17.0) g/dL Hct (39.6-50.0) % MCHC (32.0-37.0) g/dL RDW (11.5-14.5) % Lymphocytes # (0.90-5.00) 10*3/uL PT (10.0-12.5) sec INR (<1.2) Sodium (137-145) mmol/L Chloride (98-107) mmol/L BUN (9-20) mg/dL AST (17-59) U/L Alkaline Phosphatase (38-126) U/L Total Protein (6.3-8.2) g/dL Albumin (3.5-5.0) g/dL Crossmatch See Detail Assessment and Plan (1) Anemia Narrative/Plan: 59-year-old male presenting for abnormal outpatient labs with low hemoglobin. Patient has pancytopenia secondary to underlying alcohol liver disease. Presented with a hemoglobin of 5.3 and noted to have positive occult stool. Patient is on anticoagulation for atrial fibrillation. He reports dark stool secondary to his iron for chronic anemia. No known history of GI bleed. Patient has significant coronary artery disease with previous IL, CABG, AICD and pacemaker. Anemia is likely multifactorial in setting of pancytopenia and an emia of chronic disease however patient with significant drop from previous. Recommend upper and lower endoscopy as patient has not had any recent endoscopic evaluation and need to consider possible GI source of bleed. Current Visit: Yes Status: Acute Code(s): D64.9 - ANEMIA, UNSPECIFIED SNOMED Code(s): 745062980 (2) Positive occult stool blood test Current Visit: Yes Status: Acute Code(s): R19.5 - OTHER FECAL ABNORMALITIES SNOMED Code(s): 60539456 (3) Alcoholic cirrhosis of liver with ascites Current Visit: Yes Status: Acute Code(s): K70.31 - ALCOHOLIC CIRRHOSIS OF LIVER WITH ASCITES SNOMED Code(s): 846131081 (4) Atrial fibrillation Current Visit: Yes Status: Acute Code(s): I48.91 - UNSPECIFIED ATRIAL FIBRILLATION SNOMED Code(s): 20251249 (5) Coronary artery disease Current Visit: Yes Status: Acute Code(s): I25.10 - ATHSCL HEART DISEASE OF [place] CORONARY ARTERY W/O ANG PCTRS SNOMED Code(s): 97253406 (6) Ischemic cardiomyopathy Current Visit: Yes Status: Acute Code(s): I25.5 - ISCHEMIC CARDIOMYOPATHY SNOMED Code(s): 659045566 (7) Pancytopenia Current Visit: Yes Status: Acute Code(s): D61.818 - OTHER PANCYTOPENIA SNOMED Code(s): 913368064 Plan: 1. Can continue symptomatic supportive care 2. Clear liquid diet, n.p.o. after midnight 3. Hold anticoagulation 4. Bowel prep this evening 5. Protonix 40 mg daily for GI prophylaxis 6. Discontinue Bumex, add Lasix 40 mg daily 7. Increase spironolactone to 100 mg daily 8. Will plan for upper endoscopy and colonoscopy tomorrow 9. Abdominal ultrasound ordered to evaluate for ascites with interventional radiology consultation for paracentesis 10. Give additional unit of blood for hemoglobin of 6.8 11. Daily CBC, transfuse for hemoglobin less than 7 12. Repeat INR 13. Rest of medical management per primary medical team Thank you for this consultation, we will continue to follow. Dr. Mita Cleveland I agree with the dictator's note, documented as a scribe by Winsome Nolan.
[2025-01-25] MEDS: PEG 3350 (236 GM/BTL) + LYTES 4,000 ML BOTTLE PO ONE (19:10)
[2025-01-25] MEDS: BUDESONIDE 0.5 MG/2 ML NEBU INHALATION SCH (19:36)
[2025-01-25] MEDS: ATORVASTATIN 40 MG TAB PO SCH (20:15)
[2025-01-25] MEDS: MELATONIN 3 MG TABLET PO SCH (20:15)
[2025-01-25] MEDS: NYSTATIN 100,000 UNIT/GM POWD 15 GM TOPICAL SCH (22:28)
[2025-01-26 06:30] LABS: African American GFR (CKD) >90 (>60 ml/min/1.73 sqM); Anion Gap 5 mmol/L; Blood Urea Nitrogen 20 mg/dL (9-20); Calcium 8.8 mg/dL (8.4-10.2); Carbon Dioxide 28 mmol/L (22-30); Chloride 93 mmol/L (98-107); Glucose 68 mg/dL (74-99); Non-African American GFR(CKD) >90 (>60 ml/min/1.73 sqM); Potassium 4.2 mmol/L (3.5-5.1); Sodium 126 mmol/L (137-145)
[2025-01-26 06:37] LABS: Glucose,Whole Blood 86 mg/dL (70-110)
[2025-01-26 07:16] LABS: HCT 22.4 % (39.6-50.0); HGB 7.2 g/dL (13.0-17.0); MCH 28.2 pg (27.0-32.0); MCHC 32.1 g/dL (32.0-37.0); MCV 87.8 fL (80.0-97.0); Mean Platelet Volume 10.2 fL (9.5-12.2); Platelet Count 152 10*3/uL (140-440); RBC 2.55 10*6/uL (4.40-5.60); WBC 3.22 10*3/uL (4.50-10.00)
[2025-01-26 07:45] LABS: RDW 25.2 % (11.5-14.5)
[2025-01-26] MEDS ORDERED: SPIRONOLACTONE 25 MG TAB PO SCH (09:00)
[2025-01-26] MEDS ORDERED: BUMETANIDE 1 MG TAB PO SCH (09:00)
[2025-01-26] MEDS ORDERED: NON FORMULARY DRUG (Omeprazole [Omeprazole] 20 MG Capsule.Dr) PO SCH (09:00)
[2025-01-26] MEDS: FUROSEMIDE 10 MG/ML 4 ML VIAL IV SCH (09:04)
[2025-01-26] MEDS: DAPAGLIFLOZIN PROPANEDIOL 5 MG TABLET PO SCH (09:04)
[2025-01-26] MEDS: MAGNESIUM OXIDE 400 MG TAB PO SCH (09:05)
[2025-01-26] MEDS: SPIRONOLACTONE 25 MG TAB PO SCH (09:05)
[2025-01-26] MEDS: IPRATROPIUM-ALBUTEROL 3 ML NEB INHALATION PRN (09:26)
[2025-01-26] MEDS: ALBUMIN HUMAN 25% 50 ML in EMPTY BAG 1 BAG IVPB SCH (14:03)
--- NOTE | 2025-01-26 14:50 | US ---
EXAMINATION TYPE: US paracentesis abd w/image DATE OF EXAM: 01/26/2025 CLINICAL HISTORY: 59-year-old male with ascites and distention, referred for paracentesis The procedure was discussed with the patient. The risks, complications, benefits, and alternatives we re discussed and any questions were answered. Informed consent was obtained. The patient was placed s upine on the ultrasound table and prepped and draped in the usual sterile fashion. All elements of maximal barrier technique were utilized. Ultrasound was utilized to determine the precise skin entry site along the right lower quadrant. A 5 [place] One-Step catheter and trocar technique was utilized to access the ascites collection under direct ultrasound guidance. Approximately 7.3 liters of clear, straw-colored fluid was removed. An initial aspirate was placed in a separate 50 mL syringe, labeled, and sent for laboratory analysis . Catheter was removed, hemostasis obtained, and a dressing placed. The patient was stable throughout the procedure and remained stable upon discharge from Department of Radiology back to their inpatient room. IMPRESSION: Successful diagnostic and therapeutic paracentesis under ultrasound guidance. 7.3 L of fluid removed. Fluid analysis pending. [facility], , 01/26/2025 2:47 PM
[2025-01-26] MEDS ORDERED: LIDOCAINE 1% INJ 10MG/ML (20 ML MDV) ONE (16:37)
[2025-01-26] MEDS ORDERED: ePHEDrine 50 MG/ML 1 ML VIAL ONE (16:37)
[2025-01-26] MEDS ORDERED: PROPOFOL 10 MG/ML 20 ML VIAL IV ONE (16:37)
[2025-01-26] MEDS ORDERED: PHENYLEPHRINE-0.9% NACL SYG 1,000 MCG/10 ML SYRINGE ONE (16:37)
[2025-01-26] MEDS: LACTATED RINGERS 1,000 ML IV ONE ×2 (16:42→17:03)
--- NOTE | 2025-01-26 17:04 | P.PCN ---
Date of Procedure: 01/26/25 Procedure(s) Performed: Brief history: Patient is a pleasant 59-year-old white male with history of congestive heart failure, A-fib on Eliquis admitted to hospital for severe symptomatic anemia with a hemoglobin of 6.5 g/dL and Hemoccult positive stool. He also has history of liver cirrhosis diagnosed 3 years ago and undergoes paracentesis every 2 weeks. He received 2 units of PRBC transfusion yesterday. He is hence scheduled for an upper endoscopy as well as colonoscopy to evaluate further. Procedure performed: Esophagogastroduodenoscopy with cautery the gold probe Colonoscopy Preoperative diagnosis: Severe symptomatic anemia and Hemoccult positive stool Anesthesia: MAC Procedure: After informed consent was obtained from the patient was brought into the endoscopy unit and IV sedation was administered by anesthesia under continuous monitoring. Initially upper endoscopy was done. The Olympus GF 160 video endoscope was inserted inserted into the mouth and esophagus intubated without any difficulty and was gradually advanced into the stomach and duodenum and carefully examined. The bulb and second part of the duodenum appeared normal. The scope was then withdrawn into the stomach adequately insufflated with air and upon careful examination the antrum appeared normal. The proximal body of the stomach there were 3 small nonbleeding angiectasia identified measuring between 2 to 3 mm in size which were cauterized using a gold probe. Rest of the body, cardia and fundus appeared normal. No evidence of gastric varices. The scope was then withdrawn into the esophagus. The GE junction was located at 40 cm to the incisors. It appeared regular with no erythema erosions or ulcerations. Rest of the esophagus appeared normal. No evidence of esophageal varices. Patient tolerated the procedure well. At this time the patient continued to remain sedation. Initial digital rectal examination was normal. Olympus CF 160 video colonoscope was then inserted into the rectum and gradually advanced to the cecum without any difficulty. Careful examination was performed as the scope was gradually being withdrawn. The prep was fair.. The cecum, appeared normal. In the ascending colon there was a 5 mm polyp that was removed by cold snare polypectomy. In the transverse colon there was another 5 mm polyp removed by cold snare polypectomy. Rest of the ascending colon, transverse colon, descending colon, sigmoid colon and rectum appeared normal. In the proximal rectum there was a 7 mm polyp removed by snare polypectomy. Retroflexion was performed in the rectum and no lesions were noted. Patient tolerated the procedure well. Impression: 1. Upper endoscopy revealed 3 small nonbleeding angioectasia in the proximal body of the stomach status post cautery using a gold probe. No evidence of gastric or esophageal varices 2. Colonoscopy revealed 5 mm ascending colon polyp, 5 mm transverse colon polyp and a 7 mm rectal polyp status post polypectomy Recommendations: Findings of this examination were discussed with the patient as well as his family. He was advised to follow-up with the biopsy results. Diet will be advanced as tolerated. Resume Eliquis tomorrow morning
--- NOTE | 2025-01-26 20:46 | P.PN ---
Subjective Progress Note Date: 01/26/25 59-year-old male was transferred from radiology office because of severe anemia patient denies any blood in the stools, does have dark stools but secondary to iron supplementation. Patient does have history of alcoholic cirrhosis. Patient has congestive heart failure ischemic cardiomyopathy EF of around 20 to 25% patient has bilateral pedal edema which is extensive. Patient is hyponatremic as well. Patient denied any shortness of breath. Patient receiving 2 units of PRBC transfusion. Patient is still mild elevated but other liver function tests are essentially within normal meds except for albumin slightly lower. 01/26/2025 Patient is evaluated today resting in bed comfortably. Hemoglobin up to 7.2 status post 2 units of PRBCs. He is currently pending EGD/colonoscopy as well as paracentesis. Eliquis remains on hold. Review of Systems Constitutional: Denied any fatigue denied any fever. Cardio vascular: denied any chest pain, palpitations Gastrointestinal: denied any nausea, vomiting, diarrhea Pulmonary: Denied any shortness of breath cough Neurologic denied any new focal deficits All inpatient medications were reviewed and appropriate changes in these medications as dictated in the interval history and assessment and plan. PHYSICAL EXAMINATION: GENERAL: The patient is alert and oriented x3, not in any acute distress. Well developed, well nourished. HEENT: Pupils are round and equally reacting to light. EOMI. No scleral icterus. No conjunctival pallor. Normocephalic, atraumatic. No pharyngeal erythema. No thyromegaly. CARDIOVASCULAR: S1 and S2 present. No murmurs, rubs, or gallops. PULMONARY: Chest is clear to auscultation, no wheezing or crackles. ABDOMEN: Soft, nontender, nondistended, normoactive bowel sounds. No palpable organomegaly. MUSCULOSKELETAL: No joint swelling or deformity. EXTREMITIES: No cyanosis, clubbing, does have bilateral pedal edema which is extensive NEUROLOGICAL: Gross neurological examination did not reveal any focal deficits. SKIN: No rashes. Assessment and plan -Severe anemia without any evidence of acute bleed gastroenterology evaluate the patient the patient is undergoing a colonoscopy and likely endoscopy patient may have varices that are slowly bleeding from his alcoholic cirrhosis - Alcoholic cirrhosis: Patient will be resumed on Bumex because of the volume overload this was changed to IV lasix. Patient is on lactulose which we will continue patient does not have symptoms of hepatic encephalopathy at this time. - Heart failure chronic systolic dysfunction EF of around 25 to 50% may be in mild acute exacerbation chest x-ray was obtained patient is not requiring any oxygen patient does have extensive pedal edema IV Lasix as mentioned above patient will be resumed on Entresto Aldactone. Patient has a pacemaker and AICD - Coronary artery disease history of CABG in the past and multiple stents in the past - Atrial fibrillation paroxysmal on anticoagulation with Eliquis which will be held temporarily until endoscopy procedures - COPD without any acute exacerbation DVT prophylaxis: Patient will start on Eliquis tomorrow after endoscopy The impression and plan of care has been dictated by Treva Peñaloza Nurse Practitioner as directed. Dr. Gabriele MD I have performed a history and physical examination and medical decision making of this patient, discussed the same with the dictator, and agree with the dictators assessment and plan as written, documented as a scribe. Based on total visit time, I have performed more than 50% of this visit. Objective - Vital Signs Vital signs: Vital Signs Temp 98.4 F 01/26/25 04:00 Pulse 68 01/26/25 13:28 Resp 16 01/26/25 13:28 BP 93/51 01/26/25 13:28 Pulse Ox 95 01/26/25 13:28 FiO2 Intake & Output 01/25/25 01/26/25 01/26/25 18:59 06:59 18:59 Intake Total 592 0 Output Total 700 Balance 592 -700 Weight 83 kg Intake: Oral 0 Blood Product 592 Rc As-1 Unit 310 [id number] Rc Pheresis As-3 Unit 282 [id number] Output: Urine 700 Other: # Bowel Movements 1 1 - Labs CBC & Chem 7: 01/26/25 05:48 01/26/25 05:48 Labs: Abnormal Lab Results - Last 24 Hours (Table) 01/25/25 01/26/25 01/26/25 Range/Units 00:50 05:48 05:48 WBC 3.22 L (4.50-10.00) 10*3/uL RBC 2.55 L (4.40-5.60) 10*6/uL Hgb 7.2 L (13.0-17.0) g/dL Hct 22.4 L (39.6-50.0) % RDW 25.2 H (11.5-14.5) % Sodium 126 L (137-145) mmol/L Chloride 93 L (98-107) mmol/L Glucose 68 L (74-99) mg/dL Crossmatch See Detail Assessment and Plan Time with Patient: Less than 30
[2025-01-27] MEDS: TEMAZEPAM 7.5 MG CAP PO ONE ×2 (01:31→01:32)
[2025-01-27 04:20] LABS: Appearance,BF Cloudy (Clear)
[2025-01-27 06:16] LABS: Basophils # (A) 0.02 10*3/uL (0.00-0.10); Basophils % (A) 0.6 %; Eosinophils # (A) 0.11 10*3/uL (0.04-0.35); Eosinophils % (A) 3.3 %; HCT 20.5 % (39.6-50.0); Lymphocytes # (A) 0.75 10*3/uL (0.90-5.00); Lymphocytes % (A) 22.7 %; MCH 27.6 pg (27.0-32.0); MCHC 31.2 g/dL (32.0-37.0); MCV 88.4 fL (80.0-97.0); Mean Platelet Volume 9.7 fL (9.5-12.2); Monocytes # (A) 0.47 10*3/uL (0.20-1.00); Monocytes % (A) 14.2 %; Neutrophils # (A) 1.96 10*3/uL (1.80-7.70); Neutrophils % (A) 59.2 %; Platelet Count 145 10*3/uL (140-440); RBC 2.32 10*6/uL (4.40-5.60); RDW 24.9 % (11.5-14.5); WBC 3.31 10*3/uL (4.50-10.00)
[2025-01-27 06:28] LABS: African American GFR (CKD) 88 (>60 ml/min/1.73 sqM); Anion Gap 8 mmol/L; Blood Urea Nitrogen 22 mg/dL (9-20); Calcium 8.2 mg/dL (8.4-10.2); Carbon Dioxide 23 mmol/L (22-30); Chloride 90 mmol/L (98-107); Glucose 96 mg/dL (74-99); Non-African American GFR(CKD) 76 (>60 ml/min/1.73 sqM); Potassium 3.8 mmol/L (3.5-5.1); Sodium 121 mmol/L (137-145)
[2025-01-27 06:50] LABS: HGB 6.4 g/dL (13.0-17.0)
[2025-01-27] MEDS: SODIUM CHLORIDE 0.9% 500 ML 500 ML IV ONE ×2 (10:11→10:33)
[2025-01-27] MEDS: APIXABAN 5 MG TAB PO SCH (10:30)
[2025-01-27] MEDS: POTASSIUM CHLORIDE ER 20 MEQ TAB.ER PO STA (11:13)
[2025-01-27] MEDS ORDERED: Magnesium Replacement Protocol 1 EACH MISC MISCELLANE PRN (13:55)
[2025-01-27] MEDS: MAGNESIUM SULFATE-D5W PMX 1 GM in DEXTROSE/WATER 1 100ML.BAG IVPB ONE (15:03)
--- NOTE | 2025-01-28 06:01 | P.PN ---
Subjective Progress Note Date: 01/27/25 59-year-old male was transferred from radiology office because of severe anemia patient denies any blood in the stools, does have dark stools but secondary to iron supplementation. Patient does have history of alcoholic cirrhosis. Patient has congestive heart failure ischemic cardiomyopathy EF of around 20 to 25% patient has bilateral pedal edema which is extensive. Patient is hyponatremic as well. Patient denied any shortness of breath. Patient receiving 2 units of PRBC transfusion. Patient is still mild elevated but other liver function tests are essentially within normal meds except for albumin slightly lower. 01/26/2025 Patient is evaluated today resting in bed comfortably. Hemoglobin up to 7.2 status post 2 units of PRBCs. He is currently pending EGD/colonoscopy as well as paracentesis. Eliquis remains on hold. 01/27/2055 Patient evaluated today on the medical floor. underwent paracentesis yesterday with 7.3 L removed received 4 bags of albumin post procedure. Endoscopy reveals 3 small nonbleeding angioectasia in the proximal body of the stomach post cautery using a gold probe. No evidence of gastric or esophageal varices. Colonoscopy reveals 5 mm ascending colon polyp, 5 mm transverse colon polyp, and a 7mm rectal polyp status post polypectomy. Patient has had no active bleeding. He was cleared to resume eliquis this morning. However hemoglobin was down to 6.4 and patient to receive 1 unit of PRBCs and will recommend to hold eliquis at this time. Blood pressure has also been on the low end at 80/40s and does report feeling dizzy when sitting up. Patient to receive a 1 liter fluid bolus and tolerated the first 500 well. He remains on room air oxygen with saturations of 98%. Review of Systems Constitutional: Denied any fatigue denied any fever. Cardio vascular: denied any chest pain, palpitations Gastrointestinal: denied any nausea, vomiting, diarrhea Pulmonary: Denied any shortness of breath cough Neurologic denied any new focal deficits All inpatient medications were reviewed and appropriate changes in these medications as dictated in the interval history and assessment and plan. PHYSICAL EXAMINATION: GENERAL: The patient is alert and oriented x3, not in any acute distress. Well developed, well nourished. HEENT: Pupils are round and equally reacting to light. EOMI. No scleral icterus. No conjunctival pallor. Normocephalic, atraumatic. No pharyngeal erythema. No thyromegaly. CARDIOVASCULAR: S1 and S2 present. No murmurs, rubs, or gallops. PULMONARY: Chest is clear to auscultation, no wheezing or crackles. ABDOMEN: Soft, nontender, nondistended, normoactive bowel sounds. No palpable organomegaly. MUSCULOSKELETAL: No joint swelling or deformity. EXTREMITIES: No cyanosis, clubbing, does have bilateral pedal edema which is extensive NEUROLOGICAL: Gross neurological examination did not reveal any focal deficits. SKIN: No rashes. Assessment and plan -Severe anemia without any evidence of acute bleed, endoscopy reveals 3 small nonbleeding angioectasia which were cauterized. Hgb 6.4 today and patient to receive 1 unit of PRBC. - Alcoholic cirrhosis: Patient will be resumed on Bumex because of the volume overload this was changed to IV lasix. Aldactone held today. -Patient is on lactulose which we will continue patient does not have symptoms of hepatic encephalopathy at this time. - Heart failure chronic systolic dysfunction EF of around 25 to 50% may be in mild acute exacerbation. Entresto held yesterday due to hypotension. - Patient has a pacemaker and AICD - Coronary artery disease history of CABG in the past and multiple stents in the past - Atrial fibrillation paroxysmal on anticoagulation with Eliquis which will be held temporarily until endoscopy procedures - COPD without any acute exacerbation 1 L fluid bolus ordered. Continue midodrine scheduled. Hold aldactone and entresto. Supplement potassium and magnesium. Repeat labs in the AM. DVT prophylaxis: eliquis which is on hold. The impression and plan of care has been dictated by Treva Peñaloza, Nurse Practitioner as directed. Dr. Gabriele MD I have performed a history and physical examination and medical decision making of this patient, discussed the same with the dictator, and agree with the dictators assessment and plan as written, documented as a scribe. Based on total visit time, I have performed more than 50% of this visit. Objective - Vital Signs Vital signs: Vital Signs Temp 97.7 F 01/28/25 01:08 Pulse 65 01/28/25 01:08 Resp 16 01/28/25 01:08 BP 92/47 01/28/25 01:08 Pulse Ox 98 01/28/25 01:08 FiO2 Intake & Output 01/27/25 01/27/25 01/28/25 06:59 18:59 06:59 Intake Total 1277 200 Output Total 400 1000 Balance 877 -800 Weight 57 kg 57 kg 67.5 kg Intake: Intake, IV Titration 1000 Amount Sodium Chloride 0.9% 500 500 ml 500 ml @ 999 mls/hr IV .Q31M ONE Rx#:[id number] Sodium Chloride 0.9% 500 500 ml 500 ml @ 999 mls/hr IV .Q31M ONE Rx#:[id number] Oral 200 Blood Product 277 Rc Pheresis As3 Unit 277 [id number] Output: Urine 400 1000 Other: Voiding Method Bedside Commode Urinal # Voids 1 1 # Bowel Movements 1 1 - Labs CBC & Chem 7: 01/27/25 05:33 01/27/25 05:33 Labs: Abnormal Lab Results - Last 24 Hours (Table) 01/25/25 01/27/25 01/27/25 Range/Units 00:50 05:33 05:33 WBC 3.31 L (4.50-10.00) 10*3/uL RBC 2.32 L (4.40-5.60) 10*6/uL Hgb 6.4 L* (13.0-17.0) g/dL Hct 20.5 L (39.6-50.0) % MCHC 31.2 L (32.0-37.0) g/dL Lymphocytes # 0.75 L (0.90-5.00) 10*3/uL Sodium 121 L (137-145) mmol/L Chloride 90 L (98-107) mmol/L BUN 22 H (9-20) mg/dL Calcium 8.2 L (8.4-10.2) mg/dL Crossmatch See Detail Microbiology - Last 24 Hours (Table) 01/26/25 13:15 Gram Stain - Preliminary Ascites Fluid Body Fluid Culture - Preliminary Assessment and Plan Time with Patient: Less than 30
[2025-01-28 07:27] LABS: Basophils # (A) 0.03 10*3/uL (0.00-0.10); Basophils % (A) 0.7 %; Eosinophils # (A) 0.13 10*3/uL (0.04-0.35); Eosinophils % (A) 2.9 %; HCT 22.8 % (39.6-50.0); HGB 7.4 g/dL (13.0-17.0); Lymphocytes % (A) 11.2 %; MCH 28.7 pg (27.0-32.0); MCHC 32.5 g/dL (32.0-37.0); MCV 88.4 fL (80.0-97.0); Mean Platelet Volume 10.4 fL (9.5-12.2); Monocytes % (A) 11.2 %; Neutrophils # (A) 3.31 10*3/uL (1.80-7.70); Neutrophils % (A) 73.8 %; Platelet Count 143 10*3/uL (140-440); RBC 2.58 10*6/uL (4.40-5.60); RDW 22.9 % (11.5-14.5); WBC 4.48 10*3/uL (4.50-10.00)
[2025-01-28 08:03] LABS: African American GFR (CKD) >90 (>60 ml/min/1.73 sqM); Anion Gap 6 mmol/L; Blood Urea Nitrogen 21 mg/dL (9-20); Carbon Dioxide 24 mmol/L (22-30); Chloride 91 mmol/L (98-107); Glucose 99 mg/dL (74-99); Non-African American GFR(CKD) 79 (>60 ml/min/1.73 sqM); Potassium 4.2 mmol/L (3.5-5.1); Sodium 121 mmol/L (137-145)
[2025-01-28] MEDS ORDERED: MORPHINE SULFATE 4 MG/ML SYRINGE IVP PRN (21:02)
--- NOTE | 2025-01-28 22:00 | P.PN ---
Subjective Progress Note Date: 01/28/25 59-year-old male was transferred from radiology office because of severe anemia patient denies any blood in the stools, does have dark stools but secondary to iron supplementation. Patient does have history of alcoholic cirrhosis. Patient has congestive heart failure ischemic cardiomyopathy EF of around 20 to 25% patient has bilateral pedal edema which is extensive. Patient is hyponatremic as well. Patient denied any shortness of breath. Patient receiving 2 units of PRBC transfusion. Patient is still mild elevated but other liver function tests are essentially within normal meds except for albumin slightly lower. 01/26/2025 Patient is evaluated today resting in bed comfortably. Hemoglobin up to 7.2 status post 2 units of PRBCs. He is currently pending EGD/colonoscopy as well as paracentesis. Eliquis remains on hold. 01/27/2055 Patient evaluated today on the medical floor. underwent paracentesis yesterday with 7.3 L removed received 4 bags of albumin post procedure. Endoscopy reveals 3 small nonbleeding angioectasia in the proximal body of the stomach post cautery using a gold probe. No evidence of gastric or esophageal varices. Colonoscopy reveals 5 mm ascending colon polyp, 5 mm transverse colon polyp, and a 7mm rectal polyp status post polypectomy. Patient has had no active bleeding. He was cleared to resume eliquis this morning. However hemoglobin was down to 6.4 and patient to receive 1 unit of PRBCs and will recommend to hold eliquis at this time. Blood pressure has also been on the low end at 80/40s and does report feeling dizzy when sitting up. Patient to receive a 1 liter fluid bolus and tolerated the first 500 well. He remains on room air oxygen with saturations of 98%. 01/28/2025 Patient is evaluated in follow-up with the medical floor. He tolerated the 1 L of fluid and packed red blood cells while he is still on room air with adequate oxygen saturations and not complaining of any shortness of breath. Hemoglobin today is improved and up to 7.4. His sodium remained stable at 121. Blood pressure is improved as well into the 100 systolic. He is not quite ready for discharge yet. Review of Systems Constitutional: Denied any fatigue denied any fever. Cardio vascular: denied any chest pain, palpitations Gastrointestinal: denied any nausea, vomiting, diarrhea Pulmonary: Denied any shortness of breath cough Neurologic denied any new focal deficits All inpatient medications were reviewed and appropriate changes in these medications as dictated in the interval history and assessment and plan. PHYSICAL EXAMINATION: GENERAL: The patient is alert and oriented x3, not in any acute distress. Well developed, well nourished. HEENT: Pupils are round and equally reacting to light. EOMI. No scleral icterus. No conjunctival pallor. Normocephalic, atraumatic. No pharyngeal erythema. No thyromegaly. CARDIOVASCULAR: S1 and S2 present. No murmurs, rubs, or gallops. PULMONARY: Chest is clear to auscultation, no wheezing or crackles. ABDOMEN: Soft, nontender, nondistended, normoactive bowel sounds. No palpable organomegaly. MUSCULOSKELETAL: No joint swelling or deformity. EXTREMITIES: No cyanosis, clubbing, does have bilateral pedal edema which is extensive NEUROLOGICAL: Gross neurological examination did not reveal any focal deficits. SKIN: No rashes. Assessment and plan -Severe anemia without any evidence of acute bleed, endoscopy reveals 3 small nonbleeding angioectasia which were cauterized. Hgb 6.4 today and patient to receive 1 unit of PRBC. Hemoglobin improved at 7.4 - Alcoholic cirrhosis: Patient will be resumed on Bumex because of the volume overload this was changed to IV lasix. Aldactone held today. -Patient is on lactulose which we will continue patient does not have symptoms of hepatic encephalopathy at this time. - Heart failure chronic systolic dysfunction EF of around 25 to 50% may be in mild acute exacerbation. Entresto held yesterday due to hypotension. - Patient has a pacemaker and AICD - Coronary artery disease history of CABG in the past and multiple stents in the past - Atrial fibrillation paroxysmal on anticoagulation with Eliquis which will be held temporarily until endoscopy procedures - COPD without any acute exacerbation -Hyponatremia nephrology was consulted Continue midodrine scheduled. Hold aldactone and entresto. Repeat labs in the AM. DVT prophylaxis: eliquis The impression and plan of care has been dictated by Treva Peñaloza Nurse Practitioner as directed. Dr. Gabriele MD I have performed a history and physical examination and medical decision making of this patient, discussed the same with the dictator, and agree with the dictators assessment and plan as written, documented as a scribe. Based on total visit time, I have performed more than 50% of this visit. Objective - Vital Signs Vital signs: Vital Signs Temp 98.1 F 01/28/25 18:59 Pulse 70 01/28/25 20:31 Resp 18 01/28/25 18:59 BP 105/49 01/28/25 18:59 Pulse Ox 96 01/28/25 18:59 FiO2 Intake & Output 01/28/25 01/28/25 01/29/25 06:59 18:59 06:59 Intake Total 200 Output Total 1000 650 150 Balance -800 -650 -150 Weight 67.5 kg Intake: Oral 200 Output: Urine 1000 650 150 Other: Voiding Method Bedside Commode Bedside Commode Urinal Urinal # Voids 1 # Bowel Movements 1 1 1 - Labs CBC & Chem 7: 01/28/25 06:43 01/28/25 06:43 Labs: Abnormal Lab Results - Last 24 Hours (Table) 01/28/25 01/28/25 Range/Units 06:43 06:43 WBC 4.48 L (4.50-10.00) 10*3/uL RBC 2.58 L (4.40-5.60) 10*6/uL Hgb 7.4 L (13.0-17.0) g/dL Hct 22.8 L (39.6-50.0) % RDW 22.9 H (11.5-14.5) % Lymphocytes # 0.50 L (0.90-5.00) 10*3/uL Sodium 121 L (137-145) mmol/L Chloride 91 L (98-107) mmol/L BUN 21 H (9-20) mg/dL Calcium 8.0 L (8.4-10.2) mg/dL Microbiology - Last 24 Hours (Table) 01/26/25 13:15 Gram Stain - Preliminary Ascites Fluid Body Fluid Culture - Preliminary Assessment and Plan Time with Patient: Less than 30
[2025-01-29 08:50] LABS: BUN/Creat Ratio 20.56 Ratio (12.00-20.00); Blood Urea Nitrogen 18.5 mg/dL (9.0-27.0); Chloride 94 mmol/L (96-109); Glucose 88 mg/dL (70-110); Potassium 3.9 mmol/L (3.5-5.5); Sodium 124 mmol/L (135-145)
[2025-01-29 08:51] LABS: Calcium 7.9 mg/dL (8.7-10.3); Carbon Dioxide 23.7 mmol/L (21.6-31.8)
[2025-01-29 08:57] LABS: Basophils # (A) 0.03 X 10*3/uL (0.00-0.10); Basophils % (A) 0.8 %; Eosinophils # (A) 0.14 X 10*3/uL (0.04-0.35); Eosinophils % (A) 3.6 %; HCT 22.5 % (39.6-50.0); HGB 6.9 g/dL (13.0-17.0); Lymphocytes # (A) 0.62 X 10*3/uL (0.90-5.00); Lymphocytes % (A) 15.9 %; MCHC 30.7 g/dL (32.0-37.0); MCV 91.5 FL (80.0-97.0); Mean Platelet Volume 11.9 FL (9.5-12.2); Monocytes # (A) 0.56 X 10*3/uL (0.20-1.00); Monocytes % (A) 14.4 %; NRBC Per 100 WBC 0 X 10*3/uL (0.00-0.01); Neutrophils # (A) 2.53 X 10*3/uL (1.80-7.70); Neutrophils % (A) 64.8 %; Platelet Count 142 X 10*3/uL (140-440); RBC 2.46 X 10*6/uL (4.40-5.60); RDW 23.1 % (11.5-14.5)
[2025-01-29] MEDS: SODIUM FERRIC GLUCONAT-SUCROSE 125 MG in SODIUM CHLORIDE 0.9% 100 ML IVPB SCH (11:15)
--- NOTE | 2025-01-29 12:32 | P.NPCON ---
History of Present Illness - Reason for Consult acute renal failure, hyponatremia - History of Present Illness Patient is a 59-year-old male with history of alcoholic liver cirrhosis and history of cardiomyopathy with an EF of 20 to 25% who was admitted to the hospital on the radiology department due to significant anemia. Hemoglobin was 6.4 g/dL. Patient has been transfused packed RBCs. No active bleeding noted Serum sodium was 124 on admission and increased to 126. Subsequently dropped to 121 and is 124 today. Patient did receive IV fluids initially but they were discontinued. He is maintained on loop diuretics which he takes at home as well. Patient has significant lower extremity swelling which is chronic. Denies any shortness of breath. Last paracentesis about 2 weeks ago. No history of nausea or vomiting or diarrhea Past Medical History Past Medical History: Atrial Fibrillation, Coronary Artery Disease (CAD), Chest Pain / Angina, Heart Failure, COPD, Hypertension, Liver Disease, Myocardial Infarction (MS), Respiratory Disorder, Syncope Additional Past Medical History / Comment(s): Home oxygen use@2-3L PRN COPD - says has oxygen at home but doesn't wear it, MS- patient reports having 3-4 MS's, + CABG -triple bypass scar, + AICD/PCCM "I have a machine inside that sends all the info to my heart doctor" , Abdominal Hernia surgery x2, paracentesis as needed- last times was at [facility] about 4 months ago per patient Last Myocardial Infarction Date:: 1992 History of Any Multi-Drug Resistant Organisms: None Reported Past Surgical History: AICD, Cholecystectomy, Coronary Bypass/CABG, Heart Catheterization With Stent, Hernia Repair, Pacemaker Additional Past Surgical History / Comment(s): CABG, AICD/Pacemaker placed about 10 years ago, Hernia repair abdominal x2 Past Anesthesia/Blood Transfusion Reactions: No Reported Reaction Date of Last Stent Placement:: 1992 Type of Cardiac Device: Permanent Pacemaker, AICD Device Placement Date:: 1992 Past Psychological History: Anxiety Past Alcohol Use History: None Reported, Occasional - Past Family History Mother Family Medical History: Cancer Father Family Medical History: Cancer Medications and Allergies Home Medications Medication Instructions Recorded Confirmed Type Empagliflozin [Jardiance] 10 mg PO DAILY 09/30/24 01/25/25 History Ergocalciferol [Vitamin D2 (1250 1,250 mcg PO CELESTE 10/06/24 01/25/25 History Mcg = 37111 Iu)] Atorvastatin [Lipitor] 40 mg PO HS 12/19/24 01/25/25 History Budesonide [Pulmicort] 0.5 mg INHALATION RT-BID 12/19/24 01/25/25 History Lactulose 20 gm PO BID 12/19/24 01/25/25 History Magnesium Oxide [Magox 400] 400 mg PO DAILY 12/19/24 01/25/25 History Miconazole Nitrate 2% Powder 1 applic TOPICAL BID 12/19/24 01/25/25 History Naloxone HCl [Narcan] 4 mg NASAL ONCE PRN 12/19/24 01/25/25 History Sodium Chloride [[place]] 1 spray EA NOSTRIL Q1H PRN 12/19/24 01/25/25 History Apixaban [Eliquis] 5 mg PO Q12H 12/31/24 01/25/25 History Ferrous Sulfate [Iron (65 MG 325 mg PO HS 12/31/24 01/25/25 History Elemental)] Omeprazole 20 mg PO DAILY 12/31/24 01/25/25 History Sacubitril/Valsartan [Entresto 24 0.5 tab PO Q12H 12/31/24 01/25/25 History mg-26 mg Tablet] HYDROcodone/APAP 5-325MG [[employer] 1 tab PO Q6H PRN #4 tab 01/05/25 01/25/25 Rx 5-325] Acetaminophen [Tylenol 8 Hour] 650 mg PO Q6H PRN 01/25/25 01/25/25 History Bumetanide [Bumex] 1 mg PO DAILY 01/25/25 01/25/25 History Calcium Carbonate [Tums] 1,000 mg PO Q4H PRN 01/25/25 01/25/25 History Ipratropium-Albuterol Nebulize 3 ml INHALATION RT-Q4H PRN 01/25/25 01/25/25 History [Duoneb 0.5 mg-3 mg/3 ml Soln] Melatonin 3 mg PO HS 01/25/25 01/25/25 History Metoclopramide HCl [Reglan] 5 mg PO QID 01/25/25 01/25/25 History Metoprolol Tartrate [Lopressor] 12.5 mg PO BID 01/25/25 01/25/25 History Midodrine HCl [ProAmatine] 20 mg PO TID-W/MEALS 01/25/25 01/25/25 History Spironolactone [Aldactone] 12.5 mg PO DAILY 01/25/25 01/25/25 History Allergies Allergy/AdvReac Type Severity Reaction Status Date / Time chloroxine [From Capitrol] Allergy Rash/Hives Verified 01/25/25 08:47 Physical Exam Vitals: Vital Signs Temp Pulse Pulse Resp BP BP Pulse Ox 01/29/25 09:19 69 111/72 98 01/29/25 07:49 72 01/29/25 07:39 74 01/29/25 07:08 98 F 68 20 109/69 94/55 92 L 01/29/25 01:55 76 106/54 01/29/25 01:22 98.0 F 62 16 87/46 93 L 01/28/25 20:31 70 01/28/25 20:17 69 01/28/25 18:59 98.1 F 68 18 105/49 96 01/28/25 17:19 71 108/47 96 Intake and Output 01/28/25 01/29/25 01/29/25 22:59 06:59 14:59 Output Total 450 350 Balance -450 -350 Output: Urine 450 350 Other: Voiding Method Bedside Commode Bedside Commode Urinal Urinal # Bowel Movements 1 1 Weight 81.5 kg Patient is awake, comfortable, no acute distress Examination of the heart S1 and S2 Examination of the lungs bilateral breath sounds are heard Abdomen is soft nontender, ascites noted Examination of lower extremity shows chronic skin changes edema 2+ bilaterally IT FIELD TECHNICIAN exam grossly intact Results - Lab Results Most recent lab results Calcium 7.9 mg/dL (8.7-10.3) L 01/29/25 04:23 Magnesium 1.9 mg/dL (1.6-2.3) 01/28/25 06:43 01/29/25 04:23 01/29/25 04:23 Assessment and Plan Assessment: 1. Hyponatremia, hypervolemic associated with liver cirrhosis as well as underlying history of CHF and cardiomyopathy received IV fluids in the ER and was subsequently maintained loop diuretics loop diuretics, discontinued on 01/27/2025 2. Anemia with no active bleeding noted status post EGD and colonoscopy. Status post packed RBCs transfusion. EGD showed nonbleeding angioectasia in the stomach and colonic polyps. 3. Alcoholic liver cirrhosis with portal hypertension and recurring ascites needing paracentesis 4. Cardiomyopathy with EF of 25% Plan: Continue to avoid IV fluids May continue off of diuretics for now and repeat sodium tomorrow. Continue to avoid high salt intake Maintain fluid restriction Overall prognosis is guarded as hyponatremia is a poor prognostic indicator with CHF Thank you for the consultation. Will continue to follow the patient with you during his hospitalization.
--- NOTE | 2025-01-29 15:08 | P.PN ---
Subjective Progress Note Date: 01/29/25 59-year-old male was transferred from radiology office because of severe anemia patient denies any blood in the stools, does have dark stools but secondary to iron supplementation. Patient does have history of alcoholic cirrhosis. Patient has congestive heart failure ischemic cardiomyopathy EF of around 20 to 25% patient has bilateral pedal edema which is extensive. Patient is hyponatremic as well. Patient denied any shortness of breath. Patient receiving 2 units of PRBC transfusion. Patient is still mild elevated but other liver function tests are essentially within normal meds except for albumin slightly lower. 01/26/2025 Patient is evaluated today resting in bed comfortably. Hemoglobin up to 7.2 status post 2 units of PRBCs. He is currently pending EGD/colonoscopy as well as paracentesis. Eliquis remains on hold. 01/27/2055 Patient evaluated today on the medical floor. underwent paracentesis yesterday with 7.3 L removed received 4 bags of albumin post procedure. Endoscopy reveals 3 small nonbleeding angioectasia in the proximal body of the stomach post cautery using a gold probe. No evidence of gastric or esophageal varices. Colonoscopy reveals 5 mm ascending colon polyp, 5 mm transverse colon polyp, and a 7mm rectal polyp status post polypectomy. Patient has had no active bleeding. He was cleared to resume eliquis this morning. However hemoglobin was down to 6.4 and patient to receive 1 unit of PRBCs and will recommend to hold eliquis at this time. Blood pressure has also been on the low end at 80/40s and does report feeling dizzy when sitting up. Patient to receive a 1 liter fluid bolus and tolerated the first 500 well. He remains on room air oxygen with saturations of 98%. 01/28/2025 Patient is evaluated in follow-up with the medical floor. He tolerated the 1 L of fluid and packed red blood cells while he is still on room air with adequate oxygen saturations and not complaining of any shortness of breath. Hemoglobin today is improved and up to 7.4. His sodium remained stable at 121. Blood pressure is improved as well into the 100 systolic. He is not quite ready for discharge yet. 01/29/2025 Patient debilitated follow-up on the medical floor. He is feeling slightly dizzy while up ambulating. Eliquis will be on hold as his hemoglobin today is 6 .9 again we will receive 1 unit of packed red blood cells. We will also start the patient on IV iron daily. He continues on midodrine 20 mg 3 times daily. He is also on 100 mg of Aldactone daily although we have been holding this medication. Entresto has also been held he is on 1/2 tablet every 12 hours. Nephrology was consulted as patient's sodium level has been low at 121 and now 124 today. His blood pressure remains marginal. Review of Systems Constitutional: Denied any fatigue denied any fever. Cardio vascular: denied any chest pain, palpitations Gastrointestinal: denied any nausea, vomiting, diarrhea Pulmonary: Denied any shortness of breath cough Neurologic denied any new focal deficits All inpatient medications were reviewed and appropriate changes in these medications as dictated in the interval history and assessment and plan. PHYSICAL EXAMINATION: GENERAL: The patient is alert and oriented x3, not in any acute distress. Well developed, well nourished. HEENT: Pupils are round and equally reacting to light. EOMI. No scleral icterus. No conjunctival pallor. Normocephalic, atraumatic. No pharyngeal erythema. No thyromegaly. CARDIOVASCULAR: S1 and S2 present. No murmurs, rubs, or gallops. PULMONARY: Chest is clear to auscultation, no wheezing or crackles. ABDOMEN: Soft, nontender, nondistended, normoactive bowel sounds. No palpable organomegaly. MUSCULOSKELETAL: No joint swelling or deformity. EXTREMITIES: No cyanosis, clubbing, does have bilateral pedal edema which is extensive NEUROLOGICAL: Gross neurological examination did not reveal any focal deficits. SKIN: No rashes. Assessment and plan -Severe anemia without any evidence of acute bleed, endoscopy reveals 3 small nonbleeding angioectasia which were cauterized. - Alcoholic cirrhosis: Patient will be resumed on Bumex because of the volume overload this was changed to IV lasix. Aldactone held today. -Patient is on lactulose which we will continue patient does not have symptoms of hepatic encephalopathy at this time. - Heart failure chronic systolic dysfunction EF of around 25 to 50% may be in mild acute exacerbation. Entresto held yesterday due to hypotension. - Patient has a pacemaker and AICD - Coronary artery disease history of CABG in the past and multiple stents in the past - Atrial fibrillation paroxysmal on anticoagulation with Eliquis which will be held temporarily until endoscopy procedures - COPD without any acute exacerbation -Hyponatremia nephrology was consulted Continue midodrine scheduled. Hold aldactone and entresto. Repeat labs in the AM. Transfuse 1 unit PRBCs; patient has received 3 units of blood so far this hospitalization Hold entresto for systolic BP less than 100 Nephrology recommending to hold off on IV fluids for now and also hold diuretics Repeat sodium level in the morning DVT prophylaxis: meagan The impression and plan of care has been dictated by Treva Peñaloza, Nurse Practitioner as directed. Dr. Gabriele MD I have performed a history and physical examination and medical decision making of this patient, discussed the same with the dictator, and agree with the dictators assessment and plan as written, documented as a scribe. Based on total visit time, I have performed more than 50% of this visit. Objective - Vital Signs Vital signs: Vital Signs Temp 97.7 F 01/29/25 14:51 Pulse 65 01/29/25 14:51 Resp 20 01/29/25 14:51 BP 94/59 01/29/25 14:51 Pulse Ox 96 01/29/25 14:51 FiO2 Intake & Output 01/28/25 01/29/25 01/29/25 18:59 06:59 18:59 Intake Total 0 Output Total 650 500 Balance -650 -500 0 Weight 81.5 kg Intake: Blood Product 0 Unit 0 Output: Urine 650 500 Other: Voiding Method Bedside Commode Bedside Commode Bedside Commode Urinal Urinal Urinal # Bowel Movements 1 1 - Labs CBC & Chem 7: 01/29/25 04:23 01/29/25 04:23 Labs: Abnormal Lab Results - Last 24 Hours (Table) 01/29/25 01/29/25 01/29/25 Range/Units 04:23 04:23 10:31 WBC 3.90 L (4.50-10.00) X 10*3/uL RBC 2.46 L (4.40-5.60) X 10*6/uL Hgb 6.9 A* (13.0-17.0) g/dL Hct 22.5 L (39.6-50.0) % MCHC 30.7 L (32.0-37.0) g/dL RDW 23.1 H (11.5-14.5) % Lymphocytes # 0.62 L (0.90-5.00) X 10*3/uL Sodium 124 L (135-145) mmol/L Chloride 94 L (96-109) mmol/L BUN/Creatinine Ratio 20.56 H (12.00-20.00) Ratio Calcium 7.9 L (8.7-10.3) mg/dL Crossmatch See Detail Microbiology - Last 24 Hours (Table) 01/26/25 13:15 Gram Stain - Preliminary Ascites Fluid Body Fluid Culture - Preliminary Assessment and Plan Time with Patient: Less than 30
[2025-01-29 20:50] LABS: % Iron Saturation 5.47 (15.00-50.00); Ferritin 95.2 ng/mL (22.0-322.0)
[2025-01-30] MEDS: CALCIUM CARBONATE 500 MG CHEWABLE PO PRN (04:52)
[2025-01-30 08:31] LABS: BUN/Creat Ratio 22.22 Ratio (12.00-20.00); Calcium 8.4 mg/dL (8.7-10.3); Carbon Dioxide 22.8 mmol/L (21.6-31.8); Chloride 96 mmol/L (96-109); Glucose 96 mg/dL (70-110); Potassium 4.6 mmol/L (3.5-5.5); Sodium 126 mmol/L (135-145)
[2025-01-30 09:00] LABS: Basophils # (A) 0.02 X 10*3/uL (0.00-0.10); Basophils % (A) 0.5 %; Eosinophils # (A) 0.11 X 10*3/uL (0.04-0.35); Eosinophils % (A) 2.8 %; HCT 25.5 % (39.6-50.0); HGB 7.9 g/dL (13.0-17.0); Lymphocytes # (A) 0.68 X 10*3/uL (0.90-5.00); Lymphocytes % (A) 17.4 %; MCV 90.4 FL (80.0-97.0); Mean Platelet Volume 12.1 FL (9.5-12.2); Monocytes # (A) 0.61 X 10*3/uL (0.20-1.00); Monocytes % (A) 15.6 %; NRBC Per 100 WBC 0 X 10*3/uL (0.00-0.01); Neutrophils # (A) 2.48 X 10*3/uL (1.80-7.70); Neutrophils % (A) 63.4 %; Platelet Count 143 X 10*3/uL (140-440); RBC 2.82 X 10*6/uL (4.40-5.60); WBC 3.91 X 10*3/uL (4.50-10.00)
--- NOTE | 2025-01-30 13:51 | P.PN ---
Subjective Progress Note Date: 01/30/25 59-year-old male was transferred from radiology office because of severe anemia patient denies any blood in the stools, does have dark stools but secondary to iron supplementation. Patient does have history of alcoholic cirrhosis. Patient has congestive heart failure ischemic cardiomyopathy EF of around 20 to 25% patient has bilateral pedal edema which is extensive. Patient is hyponatremic as well. Patient denied any shortness of breath. Patient receiving 2 units of PRBC transfusion. Patient is still mild elevated but other liver function tests are essentially within normal meds except for albumin slightly lower. 01/26/2025 Patient is evaluated today resting in bed comfortably. Hemoglobin up to 7.2 status post 2 units of PRBCs. He is currently pending EGD/colonoscopy as well as paracentesis. Eliquis remains on hold. 01/27/2055 Patient evaluated today on the medical floor. underwent paracentesis yesterday with 7.3 L removed received 4 bags of albumin post procedure. Endoscopy reveals 3 small nonbleeding angioectasia in the proximal body of the stomach post cautery using a gold probe. No evidence of gastric or esophageal varices. Colonoscopy reveals 5 mm ascending colon polyp, 5 mm transverse colon polyp, and a 7mm rectal polyp status post polypectomy. Patient has had no active bleeding. He was cleared to resume eliquis this morning. However hemoglobin was down to 6.4 and patient to receive 1 unit of PRBCs and will recommend to hold eliquis at this time. Blood pressure has also been on the low end at 80/40s and does report feeling dizzy when sitting up. Patient to receive a 1 liter fluid bolus and tolerated the first 500 well. He remains on room air oxygen with saturations of 98%. 01/28/2025 Patient is evaluated in follow-up with the medical floor. He tolerated the 1 L of fluid and packed red blood cells while he is still on room air with adequate oxygen saturations and not complaining of any shortness of breath. Hemoglobin today is improved and up to 7.4. His sodium remained stable at 121. Blood pressure is improved as well into the 100 systolic. He is not quite ready for discharge yet. 01/29/2025 Patient debilitated follow-up on the medical floor. He is feeling slightly dizzy while up ambulating. Eliquis will be on hold as his hemoglobin today is 6 .9 again we will receive 1 unit of packed red blood cells. We will also start the patient on IV iron daily. He continues on midodrine 20 mg 3 times daily. He is also on 100 mg of Aldactone daily although we have been holding this medication. Entresto has also been held he is on 1/2 tablet every 12 hours. Nephrology was consulted as patient's sodium level has been low at 121 and now 124 today. His blood pressure remains marginal. 01/30/2025 Patient is eval today in follow-up in the medical floor. Continues to report feeling dizzy while up ambulating. He is also complaining of some abdominal cramping. He did receive a unit of packed red blood cells yesterday as well as was started on IV for loss that daily. His hemoglobin today is up to 7.9. He states that he has not had a good bowel movement in the last couple days and he is refusing his lactulose did educate the patient that because of the liver disease he needs to remain compliant with the lactulose dosing with a goal of 2- 3 loose bowel movements per day. He verbalizes understanding of this. Patient's abdomen remains distended with evidence of significant herniation. Would recommend follow-up with general surgery on an outpatient basis for further evaluation of the abdominal hernia. Sodium level is up to 126. He is on a blood cell count of 3.91, hemoglobin 7.9, platelet count of 143. Blood pressure on the lower side today 86/54. Review of Systems Constitutional: Denied any fatigue denied any fever. Cardio vascular: denied any chest pain, palpitations Gastrointestinal: denied any nausea, vomiting, diarrhea Pulmonary: Denied any shortness of breath cough Neurologic denied any new focal deficits All inpatient medications were reviewed and appropriate changes in these medications as dictated in the interval history and assessment and plan. PHYSICAL EXAMINATION: GENERAL: The patient is alert and oriented x3, not in any acute distress. Well developed, well nourished. HEENT: Pupils are round and equally reacting to light. EOMI. No scleral icterus. No conjunctival pallor. Normocephalic, atraumatic. No pharyngeal erythema. No thyromegaly. CARDIOVASCULAR: S1 and S2 present. No murmurs, rubs, or gallops. PULMONARY: Chest is clear to auscultation, no wheezing or crackles. ABDOMEN: Soft, nontender, nondistended, normoactive bowel sounds. No palpable organomegaly. MUSCULOSKELETAL: No joint swelling or deformity. EXTREMITIES: No cyanosis, clubbing, does have bilateral pedal edema which is ex tensive NEUROLOGICAL: Gross neurological examination did not reveal any focal deficits. SKIN: No rashes. Assessment and plan -Severe anemia without any evidence of acute bleed, endoscopy reveals 3 small nonbleeding angioectasia which were cauterized. - Alcoholic cirrhosis: Patient will be resumed on Bumex because of the volume overload this was changed to IV lasix. Aldactone held today. -Patient is on lactulose which we will continue patient does not have symptoms of hepatic encephalopathy at this time. - Heart failure chronic systolic dysfunction EF of around 25 to 50% may be in mild acute exacerbation. Entresto held yesterday due to hypotension. - Patient has a pacemaker and AICD - Coronary artery disease history of CABG in the past and multiple stents in the past - Atrial fibrillation paroxysmal on anticoagulation with Eliquis which will be held temporarily until endoscopy procedures - COPD without any acute exacerbation -Hyponatremia nephrology was consulted Continue midodrine scheduled. Hold aldactone and entresto. Repeat labs in the AM. Continue IV Ferrlecit daily Patient is status post 4 units of PRBC with stable hemoglobin Continue lactulose scheduled twice daily for goal of 2-3 loose bowel movements per day and patient verbalizes understanding of this Hold entresto for systolic BP less than 100 Nephrology recommending to hold off on IV fluids for now and also hold diuretics Repeat sodium level in the morning Patient is a return to [facility] when medically stable DVT prophylaxis: [email or web address] The impression and plan of care has been dictated by Treva Peñaloza, Nurse Practitioner as directed. Dr. Gabriele MD I have performed a history and physical examination and medical decision making of this patient, discussed the same with the dictator, and agree with the dictators assessment and plan as written, documented as a scribe. Based on total visit time, I have performed more than 50% of this visit. Objective - Vital Signs Vital signs: Vital Signs Temp 97.5 F L 01/30/25 11:57 Pulse 58 L 01/30/25 11:57 Resp 16 01/30/25 11:57 BP 86/54 01/30/25 11:57 Pulse Ox 95 01/30/25 11:57 FiO2 Intake & Output 01/29/25 01/30/25 01/30/25 18:59 06:59 18:59 Intake Total 410 571 Output Total 1201 Balance 410 -630 Weight 83.1 kg Intake: Intake, IV Titration 100 Amount Sodium Ferric Gluconat- 100 Sucrose 125 mg In Sodium Chloride 0.9% 100 ml @ 100 mls/hr IVPB DAILY [facility] Rx#:[id number] Oral 571 Blood Product 310 Rc As-1 Unit 310 [id number] Output: Urine 1200 Stool 1 Other: Voiding Method Bedside Commode Bedside Commode Bedside Commode Urinal Urinal Urinal # Voids 1 # Bowel Movements 1 1 - Labs CBC & Chem 7: 01/30/25 04:38 01/30/25 04:38 Labs: Abnormal Lab Results - Last 24 Hours (Table) 01/25/25 01/29/25 01/30/25 Range/Units 00:05 10:31 04:38 WBC 3.91 L (4.50-10.00) X 10*3/uL RBC 2.82 L (4.40-5.60) X 10*6/uL Hgb 7.9 L (13.0-17.0) g/dL Hct 25.5 L (39.6-50.0) % MCHC 31.0 L (32.0-37.0) g/dL RDW 22.0 H (11.5-14.5) % Lymphocytes # 0.68 L (0.90-5.00) X 10*3/uL Sodium (135-145) mmol/L BUN/Creatinine Ratio (12.00-20.00) Ratio Calcium (8.7-10.3) mg/dL Iron 17 L (65-175) UG/DL % Saturation 5.47 L (15.00-50.00) Crossmatch See Detail 01/30/25 Range/Units 04:38 WBC (4.50-10.00) X 10*3/uL RBC (4.40-5.60) X 10*6/uL Hgb (13.0-17.0) g/dL Hct (39.6-50.0) % MCHC (32.0-37.0) g/dL RDW (11.5-14.5) % Lymphocytes # (0.90-5.00) X 10*3/uL Sodium 126 L (135-145) mmol/L BUN/Creatinine Ratio 22.22 H (12.00-20.00) Ratio Calcium 8.4 L (8.7-10.3) mg/dL Iron (65-175) UG/DL % Saturation (15.00-50.00) Crossmatch Assessment and Plan Time with Patient: Less than 30
--- NOTE | 2025-01-30 15:23 | P.PN ---
Subjective Patient is seen for follow-up for hyponatremia with underlying history of alcoholic liver cirrhosis and cardiomyopathy. Currently off of loop diuretics Serum sodium improved to 126 today. Maintained on fluid restriction. No significant complaints today. Objective - Vital Signs Vital signs: Vital Signs Temp 97.5 F L 01/30/25 11:57 Pulse 58 L 01/30/25 11:57 Resp 16 01/30/25 11:57 BP 86/54 01/30/25 11:57 Pulse Ox 95 01/30/25 11:57 FiO2 Intake & Output 01/29/25 01/30/25 01/30/25 18:59 06:59 18:59 Intake Total 410 571 Output Total 1201 Balance 410 -630 Weight 83.1 kg Intake: Intake, IV Titration 100 Amount Sodium Ferric Gluconat- 100 Sucrose 125 mg In Sodium Chloride 0.9% 100 ml @ 100 mls/hr IVPB DAILY [facility] Rx#:[id number] Oral 571 Blood Product 310 Rc As-1 Unit 310 [id number] Output: Urine 1200 Stool 1 Other: Voiding Method Bedside Commode Bedside Commode Bedside Commode Urinal Urinal Urinal # Voids 1 # Bowel Movements 1 1 - Exam Patient is awake, comfortable, no acute distress Examination of the heart S1 and S2 Examination of the lungs bilateral breath sounds are heard Abdomen soft distended with ascites Examination lower extremity shows edema 2+ bilaterally with chronic skin changes. [employer] exam grossly intact - Labs CBC & Chem 7: 01/30/25 04:38 01/30/25 04:38 Labs: Abnormal Lab Results - Last 24 Hours (Table) 01/25/25 01/29/25 01/30/25 Range/Units 00:05 10:31 04:38 WBC 3.91 L (4.50-10.00) X 10*3/uL RBC 2.82 L (4.40-5.60) X 10*6/uL Hgb 7.9 L (13.0-17.0) g/dL Hct 25.5 L (39.6-50.0) % MCHC 31.0 L (32.0-37.0) g/dL RDW 22.0 H (11.5-14.5) % Lymphocytes # 0.68 L (0.90-5.00) X 10*3/uL Sodium (135-145) mmol/L BUN/Creatinine Ratio (12.00-20.00) Ratio Calcium (8.7-10.3) mg/dL Iron 17 L (65-175) UG/DL % Saturation 5.47 L (15.00-50.00) Crossmatch See Detail 01/30/25 Range/Units 04:38 WBC (4.50-10.00) X 10*3/uL RBC (4.40-5.60) X 10*6/uL Hgb (13.0-17.0) g/dL Hct (39.6-50.0) % MCHC (32.0-37.0) g/dL RDW (11.5-14.5) % Lymphocytes # (0.90-5.00) X 10*3/uL Sodium 126 L (135-145) mmol/L BUN/Creatinine Ratio 22.22 H (12.00-20.00) Ratio Calcium 8.4 L (8.7-10.3) mg/dL Iron (65-175) UG/DL % Saturation (15.00-50.00) Crossmatch Assessment and Plan Assessment: 1. Hyponatremia, hypervolemic associated with liver cirrhosis as well as underlying history of CHF and cardiomyopathy received IV fluids in the ER and was subsequently maintained loop diuretics loop diuretics, discontinued on 01/27/2025 2. Anemia with no active bleeding noted status post EGD and colonoscopy. Status post packed RBCs transfusion. EGD showed nonbleeding angioectasia in the stomach and colonic polyps. 3. Alcoholic liver cirrhosis with portal hypertension and recurring ascites needing paracentesis 4. Cardiomyopathy with EF of 25% Plan: Continue off of Bumex today Possibly resume in a.m. Repeat sodium in a.m. Maintain salt and fluid restriction.
[2025-01-30] MEDS: HYDROcodone/APAP 5-325MG 1 EACH TAB PO PRN (18:05)
--- NOTE | 2025-01-30 19:33 | US ---
EXAMINATION TYPE: US abdomen limited DATE OF EXAM: 01/30/2025 COMPARISON: Previous study dated 01/25/2025. CLINICAL INDICATION: Male, 59 years old with history of ascites; ascites TECHNIQUE: Grayscale imaging of the abdomen for ascites. FINDINGS: Cirrhotic liver morphology partially visualized. Moderate to large volume diffuse abdominal ascites s een throughout all 4 quadrants. IMPRESSION: Moderate to large volume diffuse abdominal ascites. [facility], , 01/30/2025 7:31 PM
[2025-01-31 08:34] LABS: HCT 25.3 % (39.6-50.0); HGB 7.9 g/dL (13.0-17.0); MCH 28.3 pg (27.0-32.0); MCHC 31.2 g/dL (32.0-37.0); MCV 90.7 FL (80.0-97.0); Mean Platelet Volume 11.9 FL (9.5-12.2); NRBC Per 100 WBC 0 X 10*3/uL (0.00-0.01); Platelet Count 141 X 10*3/uL (140-440); RBC 2.79 X 10*6/uL (4.40-5.60); RDW 21.9 % (11.5-14.5); WBC 5.76 X 10*3/uL (4.50-10.00)
[2025-01-31 08:35] LABS: Basophils # (A) 0.04 X 10*3/uL (0.00-0.10); Basophils % (A) 0.7 %; Blood Urea Nitrogen 18.8 mg/dL (9.0-27.0); Calcium 8.4 mg/dL (8.7-10.3); Carbon Dioxide 22.9 mmol/L (21.6-31.8); Chloride 97 mmol/L (96-109); Eosinophils # (A) 0.12 X 10*3/uL (0.04-0.35); Eosinophils % (A) 2.1 %; Glucose 104 mg/dL (70-110); Lymphocytes % (A) 10.4 %; Monocytes # (A) 0.75 X 10*3/uL (0.20-1.00); Neutrophils # (A) 4.23 X 10*3/uL (1.80-7.70); Neutrophils % (A) 73.5 %; Sodium 128 mmol/L (135-145)
--- NOTE | 2025-01-31 12:44 | US ---
EXAMINATION TYPE: US paracentesis abd w/image DATE OF EXAM: 01/31/2025 CLINICAL HISTORY: Ascites The procedure was discussed with the patient. The risks, complications, benefits, and alternatives we re discussed and any questions were answered. Informed consent was obtained. The patient was placed s upine on the ultrasound table and prepped and draped in the usual sterile fashion. All elements of maximal barrier technique were utilized. Under ultrasound guidance, access into the right lower quadrant was obtained, via the paracentesis catheter system and direct ultrasound guidanc e. Approximately 6.2 liters of straw-colored fluid was removed. In addition 140 cc of fluid was sent for diagnostic purposes. The patient was stable throughout the procedure and remained stable upon discha rge from Department of Radiology. IMPRESSION: Successful therapeutic and diagnostic paracentesis under ultrasound guidance. [facility], , 01/31/2025 12:42 PM
[2025-01-31] MEDS: ALBUMIN HUMAN 25% 50 ML in EMPTY BAG 1 BAG IVPB SCH (13:20)
[2025-01-31 16:58] LABS: Appearance,BF Cloudy (Clear)
[2025-01-31 18:59] LABS: Amylase, Fluid Source Paracentesis Fluid; Amylase,Body Fluid 9 U/L; Glucose, BF Source Paracentesis Fluid; Glucose, Body Fluid 110 mg/dL; LDH, Body Fluid Source Paracentesis Fluid; T. Protein, Body Fluid Source Paracentesis Fluid; Total Protein, Body Fluid 890 mg/dL
--- NOTE | 2025-02-01 06:20 | P.PN ---
Subjective Progress Note Date: 01/31/25 59-year-old male was transferred from radiology office because of severe anemia patient denies any blood in the stools, does have dark stools but secondary to iron supplementation. Patient does have history of alcoholic cirrhosis. Patient has congestive heart failure ischemic cardiomyopathy EF of around 20 to 25% patient has bilateral pedal edema which is extensive. Patient is hyponatremic as well. Patient denied any shortness of breath. Patient receiving 2 units of PRBC transfusion. Patient is still mild elevated but other liver function tests are essentially within normal meds except for albumin slightly lower. 01/26/2025 Patient is evaluated today resting in bed comfortably. Hemoglobin up to 7.2 status post 2 units of PRBCs. He is currently pending EGD/colonoscopy as well as paracentesis. Eliquis remains on hold. 01/27/2055 Patient evaluated today on the medical floor. underwent paracentesis yesterday with 7.3 L removed received 4 bags of albumin post procedure. Endoscopy reveals 3 small nonbleeding angioectasia in the proximal body of the stomach post cautery using a gold probe. No evidence of gastric or esophageal varices. Colonoscopy reveals 5 mm ascending colon polyp, 5 mm transverse colon polyp, and a 7mm rectal polyp status post polypectomy. Patient has had no active bleeding. He was cleared to resume eliquis this morning. However hemoglobin was down to 6.4 and patient to receive 1 unit of PRBCs and will recommend to hold eliquis at this time. Blood pressure has also been on the low end at 80/40s and does report feeling dizzy when sitting up. Patient to receive a 1 liter fluid bolus and tolerated the first 500 well. He remains on room air oxygen with saturations of 98%. 01/28/2025 Patient is evaluated in follow-up with the medical floor. He tolerated the 1 L of fluid and packed red blood cells while he is still on room air with adequate oxygen saturations and not complaining of any shortness of breath. Hemoglobin today is improved and up to 7.4. His sodium remained stable at 121. Blood pressure is improved as well into the 100 systolic. He is not quite ready for discharge yet. 01/29/2025 Patient debilitated follow-up on the medical floor. He is feeling slightly dizzy while up ambulating. Eliquis will be on hold as his hemoglobin today is 6 .9 again we will receive 1 unit of packed red blood cells. We will also start the patient on IV iron daily. He continues on midodrine 20 mg 3 times daily. He is also on 100 mg of Aldactone daily although we have been holding this medication. Entresto has also been held he is on 1/2 tablet every 12 hours. Nephrology was consulted as patient's sodium level has been low at 121 and now 124 today. His blood pressure remains marginal. 01/30/2025 Patient is eval today in follow-up in the medical floor. Continues to report feeling dizzy while up ambulating. He is also complaining of some abdominal cramping. He did receive a unit of packed red blood cells yesterday as well as was started on IV for loss that daily. His hemoglobin today is up to 7.9. He states that he has not had a good bowel movement in the last couple days and he is refusing his lactulose did educate the patient that because of the liver disease he needs to remain compliant with the lactulose dosing with a goal of 2- 3 loose bowel movements per day. He verbalizes understanding of this. Patient's abdomen remains distended with evidence of significant herniation. Would recommend follow-up with general surgery on an outpatient basis for further evaluation of the abdominal hernia. Sodium level is up to 126. He is on a blood cell count of 3.91, hemoglobin 7.9, platelet count of 143. Blood pressure on the lower side today 86/54. 01/31/2025 Patient evaluated today and will be going for paracentesis. Abdominal ultrasound reveals moderate to large ascites. Sodium level 128. Remains off diuretics. Review of Systems Constitutional: Denied any fatigue denied any fever. Cardio vascular: denied any chest pain, palpitations Gastrointestinal: denied any nausea, vomiting, diarrhea Pulmonary: Denied any shortness of breath cough Neurologic denied any new focal deficits All inpatient medications were reviewed and appropriate changes in these medications as dictated in the interval history and assessment and plan. PHYSICAL EXAMINATION: GENERAL: The patient is alert and oriented x3, not in any acute distress. Well developed, well nourished. HEENT: Pupils are round and equally reacting to light. EOMI. No scleral icterus. No conjunctival pallor. Normocephalic, atraumatic. No pharyngeal erythema. No thyromegaly. CARDIOVASCULAR: S1 and S2 present. No murmurs, rubs, or gallops. PULMONARY: Chest is clear to auscultation, no wheezing or crackles. ABDOMEN: Soft, nontender, nondistended, normoactive bowel sounds. No palpable organomegaly. MUSCULOSKELETAL: No joint swelling or deformity. EXTREMITIES: No cyanosis, clubbing, does have bilateral pedal edema which is extensive NEUROLOGICAL: Gross neurological examination did not reveal any focal deficits. SKIN: No rashes. Assessment and plan -Severe anemia without any evidence of acute bleed, endoscopy reveals 3 small nonbleeding angioectasia which were cauterized. - Alcoholic cirrhosis: Patient will be resumed on Bumex because of the volume overload this was changed to IV lasix. Aldactone held today. -Patient is on lactulose which we will continue patient does not have symptoms of hepatic encephalopathy at this time. - Heart failure chronic systolic dysfunction EF of around 25 to 50% may be in mild acute exacerbation. Entresto held yesterday due to hypotension. - Patient has a pacemaker and AICD - Coronary artery disease history of CABG in the past and multiple stents in the past - Atrial fibrillation paroxysmal on anticoagulation with Eliquis which will be held temporarily until endoscopy procedures - COPD without any acute exacerbation -Hyponatremia nephrology was consulted Continue midodrine scheduled. Hold aldactone and entresto. Repeat labs in the AM. Continue IV Ferrlecit daily Patient is status post 4 units of PRBC with stable hemoglobin Patient will be going for paracentesis Continue lactulose scheduled twice daily for goal of 2-3 loose bowel movements per day and patient verbalizes understanding of this Hold entresto for systolic BP less than 100 Nephrology recommending to hold off on IV fluids for now and also hold diuretics Repeat sodium level in the morning Patient is a return to [facility] when medically stable DVT prophylaxis: eliquis The impression and plan of care has been dictated by Treva Peñaloza Nurse Practitioner as directed. Dr. Gabriele MD I have performed a history and physical examination and medical decision making of this patient, discussed the same with the dictator, and agree with the dictators assessment and plan as written, documented as a scribe. Based on total visit time, I have performed more than 50% of this visit. Objective - Vital Signs Vital signs: Vital Signs Temp 98.5 F 02/01/25 01:57 Pulse 63 02/01/25 01:57 Resp 12 04/17/25 01:57 BP 94/52 02/01/25 03:03 Pulse Ox 93 L 02/01/25 01:57 FiO2 Intake & Output 01/31/25 01/31/25 02/01/25 06:59 18:59 06:59 Intake Total 540 1560 540 Output Total 300 650 Balance 240 910 540 Weight 77.5 kg 78.5 kg Intake: Intake, IV Titration 200 Amount Albumin Human 25% 50 ml 100 In Empty Bag 1 bag @ 50 mls/hr IVPB Q1H [facility] Rx#: [id number] Sodium Ferric Gluconat- 100 Sucrose 125 mg In Sodium Chloride 0.9% 100 ml @ 100 mls/hr IVPB DAILY [facility] Rx#:[id number] Oral 540 1360 540 Output: Gastric Drainage 650 Urine 300 Other: Voiding Method Bedside Commode Bedside Commode Urinal Urinal # Voids 2 3 2 # Bowel Movements 1 2 1 - Labs CBC & Chem 7: 01/31/25 04:14 01/31/25 04:14 Labs: Abnormal Lab Results - Last 24 Hours (Table) 01/31/25 01/31/25 01/31/25 Range/Units 04:14 04:14 10:50 RBC 2.79 L (4.40-5.60) X 10*6/uL Hgb 7.9 L (13.0-17.0) g/dL Hct 25.3 L (39.6-50.0) % MCHC 31.2 L (32.0-37.0) g/dL RDW 21.9 H (11.5-14.5) % Lymphocytes # 0.60 L (0.90-5.00) X 10*3/uL Sodium 128 L (135-145) mmol/L BUN/Creatinine Ratio 23.50 H (12.00-20.00) Ratio Calcium 8.4 L (8.7-10.3) mg/dL Fluid Appearance Cloudy A (Clear) Microbiology - Last 24 Hours (Table) 01/26/25 13:15 Gram Stain - Final Ascites Fluid Body Fluid Culture - Final Assessment and Plan Time with Patient: Less than 30
[2025-02-01 06:50] LABS: Basophils # (A) 0.03 10*3/uL (0.00-0.10); Basophils % (A) 0.7 %; Eosinophils # (A) 0.12 10*3/uL (0.04-0.35); Eosinophils % (A) 2.7 %; HCT 24.7 % (39.6-50.0); HGB 7.8 g/dL (13.0-17.0); Lymphocytes # (A) 0.67 10*3/uL (0.90-5.00); Lymphocytes % (A) 14.9 %; MCH 28.5 pg (27.0-32.0); MCHC 31.6 g/dL (32.0-37.0); MCV 90.1 fL (80.0-97.0); Mean Platelet Volume 9.3 fL (9.5-12.2); Monocytes # (A) 0.59 10*3/uL (0.20-1.00); Monocytes % (A) 13.1 %; Neutrophils # (A) 3.07 10*3/uL (1.80-7.70); Neutrophils % (A) 68.2 %; Platelet Count 144 10*3/uL (140-440); RBC 2.74 10*6/uL (4.40-5.60); RDW 21.4 % (11.5-14.5)
[2025-02-01 07:14] LABS: African American GFR (CKD) >90 (>60 ml/min/1.73 sqM); Anion Gap 3 mmol/L; Blood Urea Nitrogen 20 mg/dL (9-20); Calcium 8.3 mg/dL (8.4-10.2); Carbon Dioxide 26 mmol/L (22-30); Chloride 96 mmol/L (98-107); Glucose 86 mg/dL (74-99); Non-African American GFR(CKD) 86 (>60 ml/min/1.73 sqM); Potassium 3.5 mmol/L (3.5-5.1); Sodium 125 mmol/L (137-145)
--- NOTE | 2025-02-01 12:52 | P.PN ---
Subjective Patient is seen for follow-up for hyponatremia with underlying history of alcoholic liver cirrhosis and cardiomyopathy. Currently off of loop diuretics Serum sodium improved to 128 yesterday and it is 125 today. Patient states he has been drinking more fluids. Status post paracentesis yesterday of 6.2 L. Objective - Vital Signs Vital signs: Vital Signs Temp 98.3 F 02/01/25 07:45 Pulse 80 02/01/25 09:10 Resp 18 02/01/25 08:00 BP 90/50 02/01/25 07:45 Pulse Ox 93 L 02/01/25 07:45 FiO2 Intake & Output 01/31/25 02/01/25 02/01/25 18:59 06:59 18:59 Intake Total 1560 540 Output Total 650 250 Balance 910 540 -250 Weight 78.5 kg Intake: Intake, IV Titration 200 Amount Albumin Human 25% 50 ml 100 In Empty Bag 1 bag @ 50 mls/hr IVPB Q1H [facility] Rx#: [id number] Sodium Ferric Gluconat- 100 Sucrose 125 mg In Sodium Chloride 0.9% 100 ml @ 100 mls/hr IVPB DAILY [facility] Rx#:[id number] Oral 1360 540 Output: Gastric Drainage 650 Urine 250 Other: Voiding Method Bedside Commode Toilet Urinal # Voids 3 2 1 # Bowel Movements 2 1 1 - Exam Patient is awake, comfortable, no acute distress Examination of the heart S1 and S2 Examination of the lungs bilateral breath sounds are heard Abdomen soft distended with ascites Examination lower extremity shows edema 1+ bilaterally with chronic skin changes. [employer] exam grossly intact - Labs CBC & Chem 7: 02/01/25 06:27 02/01/25 06:27 Labs: Abnormal Lab Results - Last 24 Hours (Table) 01/31/25 02/01/25 02/01/25 Range/Units 10:50 06:27 06:27 RBC 2.74 L (4.40-5.60) 10*6/uL Hgb 7.8 L (13.0-17.0) g/dL Hct 24.7 L (39.6-50.0) % MCHC 31.6 L (32.0-37.0) g/dL RDW 21.4 H (11.5-14.5) % MPV 9.3 L (9.5-12.2) fL Lymphocytes # 0.67 L (0.90-5.00) 10*3/uL Sodium 125 L (137-145) mmol/L Chloride 96 L (98-107) mmol/L Calcium 8.3 L (8.4-10.2) mg/dL Fluid Appearance Cloudy A (Clear) Microbiology - Last 24 Hours (Table) 01/31/25 10:50 Acid Fast Bacilli Smear - Preliminary Ascites Fluid 01/26/25 13:15 Gram Stain - Final Ascites Fluid Body Fluid Culture - Final Assessment and Plan Assessment: 1. Hyponatremia, hypervolemic associated with liver cirrhosis as well as underlying history of CHF and cardiomyopathy, currently off of diuretics and IV fluids. 2. Anemia with no active bleeding noted status post EGD and colonoscopy. Status post packed RBCs transfusion. EGD showed nonbleeding angioectasia in the stomach and colonic polyps. 3. Alcoholic liver cirrhosis with portal hypertension and recurring ascites needing paracentesis 4. Cardiomyopathy with EF of 25% Plan: Continue off of Bumex. Restart in a.m. if sodium is lower tomorrow. Discussed fluid restriction Repeat sodium in a.m. Maintain salt and fluid restriction.
--- NOTE | 2025-02-01 15:34 | P.PN ---
Subjective Progress Note Date: 02/01/25 59-year-old male was transferred from radiology office because of severe anemia patient denies any blood in the stools, does have dark stools but secondary to iron supplementation. Patient does have history of alcoholic cirrhosis. Patient has congestive heart failure ischemic cardiomyopathy EF of around 20 to 25% patient has bilateral pedal edema which is extensive. Patient is hyponatremic as well. Patient denied any shortness of breath. Patient receiving 2 units of PRBC transfusion. Patient is still mild elevated but other liver function tests are essentially within normal meds except for albumin slightly lower. 01/26/2025 Patient is evaluated today resting in bed comfortably. Hemoglobin up to 7.2 status post 2 units of PRBCs. He is currently pending EGD/colonoscopy as well as paracentesis. Eliquis remains on hold. 01/27/2055 Patient evaluated today on the medical floor. underwent paracentesis yesterday with 7.3 L removed received 4 bags of albumin post procedure. Endoscopy reveals 3 small nonbleeding angioectasia in the proximal body of the stomach post cautery using a gold probe. No evidence of gastric or esophageal varices. Colonoscopy reveals 5 mm ascending colon polyp, 5 mm transverse colon polyp, and a 7mm rectal polyp status post polypectomy. Patient has had no active bleeding. He was cleared to resume eliquis this morning. However hemoglobin was down to 6.4 and patient to receive 1 unit of PRBCs and will recommend to hold eliquis at this time. Blood pressure has also been on the low end at 80/40s and does report feeling dizzy when sitting up. Patient to receive a 1 liter fluid bolus and tolerated the first 500 well. He remains on room air oxygen with saturations of 98%. 01/28/2025 Patient is evaluated in follow-up with the medical floor. He tolerated the 1 L of fluid and packed red blood cells while he is still on room air with adequate oxygen saturations and not complaining of any shortness of breath. Hemoglobin today is improved and up to 7.4. His sodium remained stable at 121. Blood pressure is improved as well into the 100 systolic. He is not quite ready for discharge yet. 01/29/2025 Patient debilitated follow-up on the medical floor. He is feeling slightly dizzy while up ambulating. Eliquis will be on hold as his hemoglobin today is 6 .9 again we will receive 1 unit of packed red blood cells. We will also start the patient on IV iron daily. He continues on midodrine 20 mg 3 times daily. He is also on 100 mg of Aldactone daily although we have been holding this medication. Entresto has also been held he is on 1/2 tablet every 12 hours. Nephrology was consulted as patient's sodium level has been low at 121 and now 124 today. His blood pressure remains marginal. 01/30/2025 Patient is eval today in follow-up in the medical floor. Continues to report feeling dizzy while up ambulating. He is also complaining of some abdominal cramping. He did receive a unit of packed red blood cells yesterday as well as was started on IV for loss that daily. His hemoglobin today is up to 7.9. He states that he has not had a good bowel movement in the last couple days and he is refusing his lactulose did educate the patient that because of the liver disease he needs to remain compliant with the lactulose dosing with a goal of 2- 3 loose bowel movements per day. He verbalizes understanding of this. Patient's abdomen remains distended with evidence of significant herniation. Would recommend follow-up with general surgery on an outpatient basis for further evaluation of the abdominal hernia. Sodium level is up to 126. He is on a blood cell count of 3.91, hemoglobin 7.9, platelet count of 143. Blood pressure on the lower side today 86/54. 01/31/2025 Patient evaluated today and will be going for paracentesis. Abdominal ultrasound reveals moderate to large ascites. Sodium level 128. Remains off diuretics. 02/01/2025 Patient is evaluated today in follow up on the medical floor. Patient feels better after paracentesis. 6.2 L removed. Fluid analysis not suspicious for infection. Sodium level 125. Remains on IV ferrlecit. Review of Systems Constitutional: Denied any fatigue denied any fever. Cardio vascular: denied any chest pain, palpitations Gastrointestinal: denied any nausea, vomiting, diarrhea Pulmonary: Denied any shortness of breath cough Neurologic denied any new focal deficits All inpatient medications were reviewed and appropriate changes in these medications as dictated in the interval history and assessment and plan. PHYSICAL EXAMINATION: GENERAL: The patient is alert and oriented x3, not in any acute distress. Well developed, well nourished. HEENT: Pupils are round and equally reacting to light. EOMI. No scleral icterus. No conjunctival pallor. Normocephalic, atraumatic. No pharyngeal erythema. No thyromegaly. CARDIOVASCULAR: S1 and S2 present. No murmurs, rubs, or gallops. PULMONARY: Chest is clear to auscultation, no wheezing or crackles. ABDOMEN: Soft, nontender, nondistended, normoactive bowel sounds. No palpable organomegaly. MUSCULOSKELETAL: No joint swelling or deformity. EXTREMITIES: No cyanosis, clubbing, does have bilateral pedal edema which is extensive NEUROLOGICAL: Gross neurological examination did not reveal any focal deficits. SKIN: No rashes. Assessment and plan -Severe anemia without any evidence of acute bleed, endoscopy reveals 3 small nonbleeding angioectasia which were cauterized. - Alcoholic cirrhosis: Patient will be resumed on Bumex because of the volume overload this was changed to IV lasix. Aldactone held today. -Patient is on lactulose which we will continue patient does not have symptoms of hepatic encephalopathy at this time. - Heart failure chronic systolic dysfunction EF of around 25 to 50% may be in mild acute exacerbation. Entresto held yesterday due to hypotension. - Patient has a pacemaker and AICD - Coronary artery disease history of CABG in the past and multiple stents in the past - Atrial fibrillation paroxysmal on anticoagulation with Eliquis which will be held temporarily until endoscopy procedures - COPD without any acute exacerbation -Hyponatremia nephrology was consulted Continue midodrine scheduled. Hold aldactone and entresto. Repeat labs in the AM. Continue IV Ferrlecit daily Patient is status post 4 units of PRBC with stable hemoglobin Patient will be going for paracentesis Continue lactulose scheduled twice daily for goal of 2-3 loose bowel movements per day and patient verbalizes understanding of this Hold entresto for systolic BP less than 100 Nephrology recommending to hold off on IV fluids for now and also hold diuretics Repeat sodium level in the morning Patient is a return to [facility] when medically stable DVT prophylaxis: eliquis The impression and plan of care has been dictated by Treva Peñaloza Nurse Practitioner as directed. Dr. Gabriele MD I have performed a history and physical examination and medical decision making of this patient, discussed the same with the dictator, and agree with the dictators assessment and plan as written, documented as a scribe. Based on total visit time, I have performed more than 50% of this visit. Objective - Vital Signs Vital signs: Vital Signs Temp 98.2 F 02/01/25 13:11 Pulse 62 02/01/25 13:11 Resp 17 02/01/25 13:11 BP 94/57 02/01/25 13:11 Pulse Ox 96 02/01/25 13:11 FiO2 Intake & Output 01/31/25 02/01/25 02/01/25 18:59 06:59 18:59 Intake Total 1560 540 240 Output Total 650 450 Balance 910 540 -210 Weight 78.5 kg Intake: Intake, IV Titration 200 Amount Albumin Human 25% 50 ml 100 In Empty Bag 1 bag @ 50 mls/hr IVPB Q1H [facility] Rx#: [id number] Sodium Ferric Gluconat- 100 Sucrose 125 mg In Sodium Chloride 0.9% 100 ml @ 100 mls/hr IVPB DAILY [facility] Rx#:[id number] Oral 1360 540 240 Output: Gastric Drainage 650 Urine 450 Other: Voiding Method Bedside Commode Toilet Urinal # Voids 3 2 1 # Bowel Movements 2 1 1 - Labs CBC & Chem 7: 02/01/25 06:27 02/01/25 06:27 Labs: Abnormal Lab Results - Last 24 Hours (Table) 01/31/25 02/01/25 02/01/25 Range/Units 10:50 06:27 06:27 RBC 2.74 L (4.40-5.60) 10*6/uL Hgb 7.8 L (13.0-17.0) g/dL Hct 24.7 L (39.6-50.0) % MCHC 31.6 L (32.0-37.0) g/dL RDW 21.4 H (11.5-14.5) % MPV 9.3 L (9.5-12.2) fL Lymphocytes # 0.67 L (0.90-5.00) 10*3/uL Sodium 125 L (137-145) mmol/L Chloride 96 L (98-107) mmol/L Calcium 8.3 L (8.4-10.2) mg/dL Fluid Appearance Cloudy A (Clear) Microbiology - Last 24 Hours (Table) 01/31/25 10:50 Acid Fast Bacilli Smear - Preliminary Ascites Fluid 01/26/25 13:15 Gram Stain - Final Ascites Fluid Body Fluid Culture - Final Assessment and Plan Time with Patient: Less than 30
[2025-02-01 16:25] VITALS: BMI 25.5
[2025-02-02 01:19] LABS: African American GFR (CKD) >90 (>60 ml/min/1.73 sqM); Anion Gap 4 mmol/L; Blood Urea Nitrogen 21 mg/dL (9-20); Calcium 8.3 mg/dL (8.4-10.2); Carbon Dioxide 25 mmol/L (22-30); Chloride 97 mmol/L (98-107); Glucose 90 mg/dL (74-99); Non-African American GFR(CKD) >90 (>60 ml/min/1.73 sqM); Sodium 126 mmol/L (137-145)
[2025-02-02 08:45] VITALS: RESP 17
[2025-02-02 13:17] VITALS: BP 111/52; PULSE 73; TEMP 98
--- NOTE | 2025-02-02 14:33 | P.DS ---
Providers Date of admission: 01/25/25 02:40 Attending physician: Alexandra Harrison Consults: 01/25/25 07:10 Consult Physician Routine Consulting Provider: Caron Cleveland Consult Reason/Comments: GI bleeding Do you want consulting provider notified?: Yes 01/28/25 13:45 Consult Physician Routine Consulting Provider: Samantha Dodson Consult Reason/Comments: Hyponatremia Do you want consulting provider notified?: Yes Primary care physician: Willie Kerr MD Hospital Course: Final Diagnosis -Severe anemia without any evidence of acute bleed, endoscopy reveals 3 small nonbleeding angioectasia which were cauterized. - Alcoholic cirrhosis: Patient will be resumed on Bumex because of the volume overload this was changed to IV lasix. Aldactone held today. -Patient is on lactulose which we will continue patient does not have symptoms of hepatic encephalopathy at this time. - Heart failure chronic systolic dysfunction EF of around 25 to 50% may be in mild acute exacerbation. Entresto held yesterday due to hypotension. - Patient has a pacemaker and AICD - Coronary artery disease history of CABG in the past and multiple stents in the past - Atrial fibrillation paroxysmal on anticoagulation with Eliquis which will be held temporarily until endoscopy procedures - COPD without any acute exacerbation -Hyponatremia nephrology was consulted Discharge Disposition Patient is stable for discharge to [facility]. Patient to continue all same home medications and OK to resume diuretics. Patient to follow up with nephrology in 1 week. Patient to follow up with GI in 1 week. Repeat BMP, Magnesium 2 to 3 days. Hospital Course This is a 59-year-old male was transferred from radiology office because of severe anemia patient denies any blood in the stools, does have dark stools but secondary to iron supplementation. Patient does have history of alcoholic cirrhosis. Patient has congestive heart failure ischemic cardiomyopathy EF of around 20 to 25% patient has bilateral pedal edema which is extensive. Patient is hyponatremic as well. Patient denied any shortness of breath. Patient receiving 2 units of PRBC transfusion. Patient is still mild elevated but other liver function tests are essentially within normal meds except for albumin slightly lower. underwent paracentesis with 7.3 L removed received 4 bags of albumin post procedure. GI was consulted. Patient went for EGD/Colonoscopy. Endoscopy reveals 3 small nonbleeding angioectasia in the proximal body of the stomach post cautery using a gold probe. No evidence of gastric or esophageal varices. Colonoscopy reveals 5 mm ascending colon polyp, 5 mm transverse colon polyp, and a 7mm rectal polyp status post polypectomy. Patient has had no active bleeding. However hemoglobin was down to 6.4 and patient to receive 1 unit of PRBCs. Patient does have iron deficiency anemia and received IV iron able with no signs of acute bleeding and can resume the Eliquis. Patient went for a second paracentesis on february 01 with 6.2 L of fluid removed. Patients sodium 126. Has been cleared for Return to [facility]. Analysis of ascites does not reveal bacterial infection. Hemodynamically stable and his blood pressure improved and in the 100s systolic. No acute complaints; no dizziness or lightheadedness. Please see medication reconciliation for a list of current medications. Thank you for allowing us to participate in the care of this patient. The impression and plan of care has been dictated by Treva Peñaloza, Nurse Practitioner as directed. Dr. Gabriele MD I have performed a history and physical examination and medical decision making of this patient, discussed the same with the dictator, and agree with the dictators assessment and plan as written, documented as a scribe. Based on total visit time, I have performed more than 50% of this visit. Patient Condition at Discharge: Fair Plan - Discharge Summary New Discharge Prescriptions: Continue Ergocalciferol [Vitamin D2 (1250 Mcg = 49518 Iu)] 1,250 mcg PO CELESTE Budesonide [Pulmicort] 0.5 mg INHALATION RT-BID Sodium Chloride [[place]ye [place]] 1 spray EA NOSTRIL Q1H PRN PRN Reason: DRYNESS Sacubitril/Valsartan [Entresto 24 mg-26 mg Tablet] 0.5 tab PO Q12H Midodrine HCl [ProAmatine] 20 mg PO TID-W/MEALS Metoprolol Tartrate [Lopressor] 12.5 mg PO BID Melatonin 3 mg PO HS Bumetanide [BUMEX] 1 mg PO DAILY Acetaminophen [Tylenol 8 Hour] 650 mg PO Q6H PRN PRN Reason: Pain HYDROcodone/APAP 5-325MG [[place] 5-325] 1 tab PO Q6H PRN #4 tab PRN Reason: Pain Empagliflozin [Jardiance] 10 mg PO DAILY Miconazole Nitrate 2% Powder 1 applic TOPICAL BID Lactulose 20 gm PO BID Magnesium Oxide [Magox 400] 400 mg PO DAILY Atorvastatin [Lipitor] 40 mg PO HS Naloxone HCl [Narcan] 4 mg NASAL ONCE PRN PRN Reason: suspected overdose Apixaban [Eliquis] 5 mg PO Q12H Ferrous Sulfate [Iron (65 MG Elemental)] 325 mg PO HS Omeprazole 20 mg PO DAILY Metoclopramide HCl [Reglan] 5 mg PO QID Calcium Carbonate [Tums] 1,000 mg PO Q4H PRN PRN Reason: Gi Upset Spironolactone [Aldactone] 12.5 mg PO DAILY Ipratropium-Albuterol Nebulize [Duoneb 0.5 mg-3 mg/3 ml Soln] 3 ml INHALATION RT-Q4H PRN PRN Reason: Shortness Of Breath Or Wheezing Discharge Medication List Empagliflozin [Jardiance] 10 mg PO DAILY 09/30/24 [History] Ergocalciferol [Vitamin D2 (1250 Mcg = 84393 Iu)] 1,250 mcg PO CELESTE 10/06/24 [History] Atorvastatin [Lipitor] 40 mg PO HS 12/19/24 [History] Budesonide [Pulmicort] 0.5 mg INHALATION RT-BID 12/19/24 [History] Lactulose 20 gm PO BID 12/19/24 [History] Magnesium Oxide [Magox 400] 400 mg PO DAILY 12/19/24 [History] Miconazole Nitrate 2% Powder 1 applic TOPICAL BID 12/19/24 [History] Naloxone HCl [Narcan] 4 mg NASAL ONCE PRN 12/19/24 [History] Sodium Chloride [Wye [place]] 1 spray EA NOSTRIL Q1H PRN 12/19/24 [History] Apixaban [Eliquis] 5 mg PO Q12H 12/31/24 [History] Ferrous Sulfate [Iron (65 MG Elemental)] 325 mg PO HS 12/31/24 [History] Omeprazole 20 mg PO DAILY 12/31/24 [History] Sacubitril/Valsartan [Entresto 24 mg-26 mg Tablet] 0.5 tab PO Q12H 12/31/24 [H istory] Acetaminophen [Tylenol 8 Hour] 650 mg PO Q6H PRN 01/25/25 [History] Bumetanide [BUMEX] 1 mg PO DAILY 01/25/25 [History] Calcium Carbonate [Tums] 1,000 mg PO Q4H PRN 01/25/25 [History] Ipratropium-Albuterol Nebulize [Duoneb 0.5 mg-3 mg/3 ml Soln] 3 ml INHALATION RT-Q4H PRN 01/25/25 [History] Melatonin 3 mg PO HS 01/25/25 [History] Metoclopramide HCl [Reglan] 5 mg PO QID 01/25/25 [History] Metoprolol Tartrate [Lopressor] 12.5 mg PO BID 01/25/25 [History] Midodrine HCl [ProAmatine] 20 mg PO TID-W/MEALS 01/25/25 [History] Spironolactone [Aldactone] 12.5 mg PO DAILY 01/25/25 [History] HYDROcodone/APAP 5-325MG [[place] 5-325] 1 tab PO Q6H PRN #4 tab 02/02/25 [Rx] Follow up Appointment(s)/Referral(s): Kathleen Golden NPC [REFERRING] - 1 Week (Gastroenterology follow-up for alcohol liver cirrhosis and biopsy results) Willie Kerr MD [Primary Care Provider] - 1 Week Ambulatory/Diagnostic Orders: Basic Metabolic Panel [LAB.AMB] Location: None Selected Complete Blood Count w/diff [LAB.AMB] Time Frame: 3 Days, Location: None Selected Activity/Diet/Wound Care/Special Instructions: Continue all same home medications Follow up with GI Discharge Disposition: TRANSFER TO SNF/ECF
--- NOTE | 2025-02-02 18:40 | P.PN ---
Subjective Patient is seen for follow-up for hyponatremia with underlying history of alcoholic liver cirrhosis and cardiomyopathy. Currently off of loop diuretics Serum sodium staying 126-128. Status post paracentesis of 6.2 L. Objective - Vital Signs Vital signs: Vital Signs Temp 98 F 02/02/25 13:14 Pulse 73 02/02/25 13:14 Resp 17 02/02/25 13:14 BP 111/52 02/02/25 13:14 Pulse Ox 94 L 02/02/25 13:14 FiO2 Intake & Output 02/01/25 02/02/25 02/02/25 18:59 06:59 18:59 Intake Total 1420 240 420 Output Total 1450 500 Balance -30 240 -80 Weight 78.5 kg 79.5 kg Intake: Intake, IV Titration 100 Amount Sodium Ferric Gluconat- 100 Sucrose 125 mg In Sodium Chloride 0.9% 100 ml @ 100 mls/hr IVPB DAILY JAYSHREE Rx#:[id number] Oral 1320 240 420 Output: Urine 1450 500 Other: Voiding Method Toilet Toilet Bedside Commode Urinal # Voids 1 4 1 # Bowel Movements 1 1 - Exam Patient is awake, comfortable, no acute distress Examination of the heart S1 and S2 Examination of the lungs bilateral breath sounds are heard Abdomen soft distended with ascites Examination lower extremity shows edema 1+ bilaterally with chronic skin ch anges. [employer] exam grossly intact - Labs CBC & Chem 7: 02/01/25 06:27 02/02/25 00:35 Labs: Abnormal Lab Results - Last 24 Hours (Table) 02/02/25 Range/Units 00:35 Sodium 126 L (137-145) mmol/L Chloride 97 L (98-107) mmol/L BUN 21 H (9-20) mg/dL Calcium 8.3 L (8.4-10.2) mg/dL Assessment and Plan Assessment: 1. Hyponatremia, hypervolemic associated with liver cirrhosis as well as underlying history of CHF and cardiomyopathy, currently off of diuretics and IV fluids. 2. Anemia with no active bleeding noted status post EGD and colonoscopy. Status post packed RBCs transfusion. EGD showed nonbleeding angioectasia in the stomach and colonic polyps. 3. Alcoholic liver cirrhosis with portal hypertension and recurring ascites needing paracentesis 4. Cardiomyopathy with EF of 25% Plan: Resume Bumex Discussed fluid restriction again Repeat sodium in 3 to 4 days post discharge if patient is discharged today Maintain salt and fluid restriction.
== END 2025-02-02 17:42 | DRG 378 ==
LOC: EC 23:45 → OBSVTOIN 01-25 02:40 → 3SCARD 01-25 02:40 → 5NMEDONC 01-27 00:26
PROVIDERS: ADMIT Hospitalist; ATTEND Hospitalist
PROC: 30233N1 Transfusion of Nonautologous Red Blood Cells into Peripheral Vein, Percutaneous Approach (ICD-10-PCS; 2025-01-25)
PROC: 0DBL8ZX Excision of Transverse Colon, Via Natural or Artificial Opening Endoscopic, Diagnostic (ICD-10-PCS; 2025-01-26)
PROC: 0DBP8ZX Excision of Rectum, Via Natural or Artificial Opening Endoscopic, Diagnostic (ICD-10-PCS; 2025-01-26)
PROC: 0W9G3ZZ Drainage of Peritoneal Cavity, Percutaneous Approach (ICD-10-PCS; 2025-01-26)
PROC: 0W3P8ZZ Control Bleeding in Gastrointestinal Tract, Via Natural or Artificial Opening Endoscopic (ICD-10-PCS; principal; 2025-01-26 16:25)
PROC: 0DBK8ZX Excision of Ascending Colon, Via Natural or Artificial Opening Endoscopic, Diagnostic (ICD-10-PCS; 2025-01-26 16:25)
DX: K31.811 Angiodysplasia of stomach and duodenum with bleeding (principal); D61.818 Other pancytopenia; K70.40 Alcoholic hepatic failure without coma; K76.82 Hepatic encephalopathy; D63.8 Anemia in other chronic diseases classified elsewhere; J44.9 Chronic obstructive pulmonary disease, unspecified; I11.0 Hypertensive heart disease with heart failure; I50.22 Chronic systolic (congestive) heart failure; K76.6 Portal hypertension; E87.1 Hypo-osmolality and hyponatremia; N17.9 Acute kidney failure, unspecified; I48.0 Paroxysmal atrial fibrillation; K70.31 Alcoholic cirrhosis of liver with ascites; D50.9 Iron deficiency anemia, unspecified; Z79.01 Long term (current) use of anticoagulants; R19.5 Other fecal abnormalities; I25.10 Atherosclerotic heart disease of native coronary artery without angina pectoris; I25.5 Ischemic cardiomyopathy; K63.5 Polyp of colon; K62.1 Rectal polyp; F41.9 Anxiety disorder, unspecified; I25.2 Old myocardial infarction; Z79.84 Long term (current) use of oral hypoglycemic drugs; Z79.899 Other long term (current) drug therapy; Z95.0 Presence of cardiac pacemaker; Z95.1 Presence of aortocoronary bypass graft
CPT/HCPCS: 36415; 36430; 43270; 45385; 49083; 71046; 76705; 80048; 80053; 82042; 82140; 82150; 82272; 82607; 82728; 82746; 82945; 83540; 83550; 83615; 83735; 83880; 84157; 85025; 85027; 85610; 85730; 86850; 86900; 86901; 86920; 87070; 87102; 87116; 87205; 87206; 88108; 88305; 89050; 94640; 96374; 96375; 99291

== ENCOUNTER 2025-02-19 12:56 | Day surgery (SDC) | payer MEDICARE, OTHER ==
[2025-02-19 13:38] LABS: Mean Platelet Volume 9.3 fL (9.5-12.2); Platelet Count 181 10*3/uL (140-440)
[2025-02-19 13:47] VITALS: RESP 16; TEMP 98.3
[2025-02-19 13:47] LABS: INR 1.2 (<1.2); Prothrombin Time 13.1 sec (10.0-12.5)
[2025-02-19 13:48] LABS: African American GFR (CKD) >90 (>60 ml/min/1.73 sqM); Glucose 86 mg/dL (74-99); Non-African American GFR(CKD) >90 (>60 ml/min/1.73 sqM)
[2025-02-19] MEDS: ALBUMIN HUMAN 25% 50 ML in EMPTY BAG 1 BAG IVPB SCH (14:25)
[2025-02-19 15:28] VITALS: BP 127/77; PULSE 66
--- NOTE | 2025-02-19 17:47 | US ---
EXAMINATION TYPE: US paracentesis abd w/image DATE OF EXAM: 02/19/2025 2:25 PM COMPARISON: prior paracentesis. CLINICAL INDICATION:Male, 59 years old with history of K74.60 UNSPECIFIED CIRRHOSIS OF LIVER; , ascit es ATTENDING: Dr. Zackary Adkins PROCEDURE: Informed consent was obtained. The risks of the procedure were extensively explained incl uding risk of damage to surrounding bowel with perforation and need for additional procedures. Proced ure was performed in the ultrasound procedure suite. Ultrasound imaging of the abdomen demonstrate as citic fluid. An appropriate access site was localized to the right lower abdomen. Timeout was taken p er protocol. The skin was prepped and draped in the usual sterile fashion and then locally anesthetiz ed with 1% lidocaine. The peritoneal cavity was then accessed via a 5-Turkmen one-step needle/cathete r. Approximately 7100 mL of clear straw-colored fluid was obtained. Postprocedural imaging of the ab domen demonstrate a minimal amount of abdominal fluid. Patient tolerated procedure well without immediate complication. Hemostasis at the procedural site w as obtained with a sterile bandage placed. The patient was monitored in the holding area following th e procedure and was subsequently discharged in stable condition. IMPRESSION: Ultrasound guided paracentesis, with approximately 7100 mL of clear straw-colored fluid drained. No immediate complications were evident. [facility], , 02/19/2025 5:44 PM
== END 2025-02-19 15:20 | disposition home or self-care (01) ==
LOC: RADPROMAIN 12:56
PROVIDERS: ATTEND Internal Medicine
DX: R18.8 Other ascites (principal); K74.60 Unspecified cirrhosis of liver
CPT/HCPCS: 82565; 82947; 85049; 85610; 36415; 49083; P9047